=== PATIENT | female | born 1965 | race Caucasian/White ===

== ENCOUNTER → 2020-06-01 13:58 | Outpatient (BNVA) | payer MEDICAID, SELFPAY | PROVIDERS: PCP Family Medicine; Referring Provider Family Medicine; Visit Provider Nurse Practitioner | DX: Z01.818 Encounter for other preprocedural examination (principal); K59.04 Chronic idiopathic constipation | CPT/HCPCS: 99214 ==

== ENCOUNTER 2020-08-21 09:30 | Day surgery (SDC) | payer MEDICAID, SELFPAY ==
[2020-08-13 18:42] VITALS: BMI 21.9
--- NOTE | 2020-08-20 09:11 | P.CONAN_ITS ---
Documented by User: Joy Ospina 08/20/20 14:15 HPI - Anesthesia Eval Consult details Narrative: 54yo F for Colonoscopy asa/plavix (stent) Case reviewed with Dr Tony WRIGHT Past Medical History Medical History Anxiety Asthma CAD (coronary artery disease) Depression Diabetes History of heart attack HTN (hypertension) Hypercholesteremia Family History Family History Father Diabetes Hypercholesteremia HTN (hypertension) Mother HTN (hypertension) Diabetes Hypercholesteremia Brother HTN (hypertension) Diabetes Surgical History Surgical History Hx of colonoscopy (04/11/14) Stented coronary artery Social History Social History Alcohol intake: current Alcohol intake frequency: does not drink Smoking Status: Former smoker Tobacco Type: Cigarette Cigarettes Per Day: 2 Smoking Quit Date: 10 years ago Use of substances other than those prescribed or required for medical reasons: No Advance Directives: No Advance Directives Information Provided: No Advance Directives on File: No Meds Allergies Allergy/AdvReac Type Severity Reaction Status Date / Time shellfish derived Allergy Severe Swelling Verified 08/21/20 10:01 [SHELLFISH DERIVED] Penicillins Allergy Mild UNKNOWN - Verified 08/21/20 10:01 RXN CHILD naproxen [NAPROXEN] Allergy Unknown CAN'T TAKE Verified 08/21/20 10:01 PER HER WATCH DIAL MAKER seasonal allergies Allergy Mild Itchy Eyes Uncoded 08/21/20 10:01 Home Medications Medication Instructions Recorded Confirmed Type albuterol 90 mcg INHALATION Q4-6H PRN 08/13/20 08/13/20 History aspirin 81 mg PO DAILY 08/13/20 08/13/20 History atorvastatin 80 mg PO QPM 08/13/20 08/13/20 History clopidogrel 75 mg PO DAILY 08/13/20 08/13/20 History fluticasone propion-salmeterol 1 inh INHALATION BID 08/13/20 08/13/20 History [Advair Diskus] insulin glargine [Lantus U-100 32 unit SUBCUT QPM 08/13/20 08/13/20 History Insulin] insulin lispro [Humalog U-100 10 unit SUBCUT TID 08/13/20 08/13/20 History Insulin] isosorbide mononitrate 30 mg PO DAILY 08/13/20 08/13/20 History lisinopril 20 mg PO DAILY 08/13/20 08/13/20 History metoprolol succinate 25 mg PO DAILY 08/13/20 08/13/20 History Exam Exam Date and Time: August 20, 2020 0911 Height,Weight and Vital Signs: Height 5 ft 2 in Weight 54.431 kg Pertinent Lab Results Pertinent Lab Results: Laboratory Tests 03/13/20 03/13/20 21:55 21:55 WBC 8.0 Hgb 12.7 Hct 38.7 Plt Count 284 Sodium 137 Potassium 3.9 Chloride 103 BUN 13 Creatinine 1.18 Assessment and Plan Assessment Anesthesia Assessment: Chart Reviewed Documented by User: Carole Acosta 08/21/20 11:21 [facility] Past Medical History Medical History Anxiety Asthma CAD (coronary artery disease) Depression Diabetes History of heart attack HTN (hypertension) Hypercholesteremia Family History Family History Father Diabetes Hypercholesteremia HTN (hypertension) Mother HTN (hypertension) Diabetes Hypercholesteremia Brother HTN (hypertension) Diabetes Surgical History Surgical History Hx of colonoscopy (04/11/14) Stented coronary artery Social History Social History Alcohol intake: current Alcohol intake frequency: does not drink Smoking Status: Former smoker Tobacco Type: Cigarette Cigarettes Per Day: 2 Smoking Quit Date: 10 years ago Use of substances other than those prescribed or required for medical reasons: No Advance Directives: No Advance Directives Information Provided: No Advance Directives on File: No Meds Allergies Allergy/AdvReac Type Severity Reaction Status Date / Time shellfish derived Allergy Severe Swelling Verified 08/21/20 10:01 [SHELLFISH DERIVED] Penicillins Allergy Mild UNKNOWN - Verified 08/21/20 10:01 RXN CHILD naproxen [NAPROXEN] Allergy Unknown CAN'T TAKE Verified 08/21/20 10:01 PER HER WATCH DIAL MAKER seasonal allergies Allergy Mild Itchy Eyes Uncoded 08/21/20 10:01 Home Medications Medication Instructions Recorded Confirmed Type albuterol 90 mcg INHALATION Q4-6H PRN 08/13/20 08/13/20 History aspirin 81 mg PO DAILY 08/13/20 08/13/20 History atorvastatin 80 mg PO QPM 08/13/20 08/13/20 History clopidogrel 75 mg PO DAILY 08/13/20 08/13/20 History fluticasone propion-salmeterol 1 inh INHALATION BID 08/13/20 08/13/20 History [Advair Diskus] insulin glargine [Lantus U-100 32 unit SUBCUT QPM 08/13/20 08/13/20 History Insulin] insulin lispro [Humalog U-100 10 unit SUBCUT TID 08/13/20 08/13/20 History Insulin] isosorbide mononitrate 30 mg PO DAILY 08/13/20 08/13/20 History lisinopril 20 mg PO DAILY 08/13/20 08/13/20 History metoprolol succinate 25 mg PO DAILY 08/13/20 08/13/20 History Exam Airway Mallampati Class: II TM Dist: >3cm Neck ROM: Full Assessment and Plan Assessment Anesthesia Assessment: Anesthesia Plan Discussed and Chart Reviewed Final Anesthetic Review NPO: Yes ASA Class: III Final Preanesthetic Review: No Changes in Pt Med Stat, Meds/Allgs Chart Reviewed, Consent Obtained/Reviewed and Anes Risks/Benef Reviewed Patient Risk: Intermediate Procedure Risk: Low Assessment/Block/Sedation in SS: Assess/Block/Sedation-SS Anesthetic Plan Anesthetic Plan: MAC: Disposition: Standard PACU
--- NOTE | 2020-08-21 08:40 | P.HPSUR_ITS ---
Pre-Procedural Eval Section B Chief Complaint: screening Details of Present Illness: colon cancer screening Relevant Family History (Specify if Yes): No Relevant Social History: Tobacco Use (former smoker less than 1 year) Present Medications: see Short Stay Collaborative assessment Medical History: Significant History (Diabetes, CAD,asthma Plavix therapy) History of Previous Operations: Relevant previous surgery/procedure and date(s) (2013--colonoscopy-marginal prep.hx resection Ovarian cyst.) Allergies: Allergies Allergy/AdvReac Type Severity Reaction Status Date / Time Penicillins Allergy Mild UNKNOWN - Unverified 05/03/20 17:19 RXN CHILD naproxen [NAPROXEN] Allergy Unknown CAN'T TAKE Unverified 05/03/20 17:19 PER HER EVALUATOR TRANSFER STUDENTS shellfish derived Allergy Unknown UNKNOWN Unverified 05/03/20 17:19 [SHELLFISH DERIVED] seasonal allergies Allergy Unknown Swelling Uncoded 08/13/20 18:42 Plan I have reviewed the history and physical and performed a pertinent physical examination on my patient. No changes have occurred unless specified.yes
[2020-08-21 10:03] VITALS: BP 154/86; PULSE 85; RESP 18; TEMP 36.2; O2SAT 95
[2020-08-21 10:36] LABS: Glucose, Whole Blood 92 mg/dL (60-115)
[2020-08-21] MEDS: Lactated Ringers 1,000 ML 100 ML IVCONT (10:40)
--- NOTE | 2020-08-21 10:55 | P.HPSUR_ITS ---
Pre-Procedural Eval Section B Chief Complaint: screening Details of Present Illness: colon cancer screening Relevant Family History (Specify if Yes): No Relevant Social History: Tobacco Use (stopped(?) 6months?) Present Medications: see Short Stay Collaborative assessment Medical History: Significant History (CAD with stents, 2013;Asthma, Diabetes on insulin for 3 years.) History of Previous Operations: No relevant previous surgery (coloo--poor prep) Allergies: Allergies Allergy/AdvReac Type Severity Reaction Status Date / Time shellfish derived Allergy Severe Swelling Verified 08/21/20 10:01 [SHELLFISH DERIVED] Penicillins Allergy Mild UNKNOWN - Verified 08/21/20 10:01 RXN CHILD naproxen [NAPROXEN] Allergy Unknown CAN'T TAKE Verified 08/21/20 10:01 PER HER 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 No changes have occurred unless specified.yes
--- NOTE | 2020-08-21 11:46 | PM.PROC ---
Brief Operative Note Date of procedure: 08/21/20 Pre-op diagnosis: colon cancer screening Post-op diagnosis: other (Polyp, Internal hemorrhoids) Procedure: Colonoscopy with exc polypectomy Anesthesia: XOCHITL Bo[place]) Surgeon: Leilani Olivarez Estimated blood loss (mL): 5 Pathology: other (55 cm Polyp) Condition: stable Disposition: PACU
[2020-08-21 11:50] VITALS: BP 138/96; PULSE 98; RESP 16; TEMP 36.8; O2SAT 97
[2020-08-21 12:04] VITALS: BP 171/99; PULSE 87; RESP 18; O2SAT 99
--- NOTE | 2020-08-21 13:51 | OP_ITS ---
SURGEON: Leilani Olivarez MD PREOPERATIVE DIAGNOSIS: Colon cancer screening. POSTOPERATIVE DIAGNOSIS see below: PROCEDURE PERFORMED: Colonoscopy with excisional polypectomy with the use of the cold biopsy forceps. ESTIMATED BLOOD LOSS: No significant blood loss. COMPLICATIONS: No complications. ANESTHESIA: Monitored. ANESTHESIOLOGIST: Dr. Acosta ASSISTANTS: No recreational assistant. SPECIMENS: Specimen removed; 55 cm diminutive polyp. POSTOPERATIVE DIAGNOSES: Diminutive polyp, internal hemorrhoids, marginal prep. CLIP ON SUNGLASSES ASSEMBLER: Dr. Olivarez. CONDITION: Postprocedure, stable. FINDINGS: Digital rectal exam revealed decreased sphincter tone. Video colonoscope was introduced without difficulty. It was navigated into the rectum. The level of the rectosigmoid was difficult to navigate. The patient had decreased sphincter tone and it was not retaining air well, angulation took well with air insufflation to move through what appeared to be a significant prolapse of the rectosigmoid and the lower sigmoid. Initially, we were able to get through up through to the region of the descending, transverse colon, and right colon. In the cecum, appendiceal orifice was seen. Ileocecal valve was well seen. No mucosal abnormalities were appreciated. Prep was marginal at the levels of the transverse and right colon, requiring significant flushing. Scope was withdrawn slowly. Good rotational views. Polyp was visualized at 55 cm, which was diminutive, texturing was difficult due to the mucoid residue, it was removed excisionally with cold biopsy forceps. Anorectal verge was clear. There were 2+ internal hemorrhoids noted in the anal canal. PLAN AND CURRENT RECOMMENDATIONS: Repeat asymptomatic screening in this patient will be 5 years. Would recommend a 2-day prep due to significant residual or lack of clearing of the right side. Again, well timed split prep might achieve a better result. GRAFT OR IMPLANTS: No grafts or implants. Leilani Olivarez MD MEN/MODL / [id number] MTDD
== END 2020-08-21 12:59 ==
LOC: HO.SSS 09:31
PROVIDERS: PCP Family Medicine; Visit Provider Internal Medicine Gastroenterology
PROC: 0DJD8ZZ Inspection of Lower Intestinal Tract, Via Natural or Artificial Opening Endoscopic (ICD-10-PCS; CPT 45378; principal; 2020-08-21 09:20)
DX: Z12.11 Encounter for screening for malignant neoplasm of colon (principal); K63.5 Polyp of colon; K64.8 Other hemorrhoids; J45.909 Unspecified asthma, uncomplicated; E11.9 Type 2 diabetes mellitus without complications; I25.10 Atherosclerotic heart disease of native coronary artery without angina pectoris; Z98.61 Coronary angioplasty status; I10 Essential (primary) hypertension; F17.210 Nicotine dependence, cigarettes, uncomplicated; I25.2 Old myocardial infarction; Z79.51 Long term (current) use of inhaled steroids; Z79.4 Long term (current) use of insulin; Z79.82 Long term (current) use of aspirin; Z79.899 Other long term (current) drug therapy; Z88.0 Allergy status to penicillin
CPT/HCPCS: 45380; 82947; 88305; J2405; J3010

== ENCOUNTER → 2020-09-05 10:31 | Outpatient (BNVA) | payer MEDICAID, SELFPAY | PROVIDERS: PCP Family Medicine; Visit Provider Nurse Practitioner ==

== ENCOUNTER → 2021-03-04 14:29 | Outpatient (BNVA) | payer MEDICAID, SELFPAY | PROVIDERS: PCP Family Medicine; Visit Provider Nurse Practitioner ==

== ENCOUNTER 2021-06-29 23:15 | Emergency (ER) | payer MEDICAID, SELFPAY ==
--- NOTE | ~2021-06-29 | XR_ITS ---
EXAMINATION: XR CHEST CLINICAL INFORMATION: Left flank pain COMPARISON: 03/14/2020 TECHNIQUE: 2 views of the chest were obtained. FINDINGS: The lungs are well expanded. There is no focal consolidation, edema, or effusion. No pneumothorax. The cardiomediastinal silhouette is within normal limits. No acute osseous abnormality. XR/XR chest 2V IMPRESSION: No acute pulmonary finding.
[2021-06-29 23:58] VITALS: BP 164/83; PULSE 88; RESP 18; TEMP 36.7; O2SAT 100; BMI 24.7
--- NOTE | 2021-06-30 00:47 | PC.NURSE ---
checked pt sugar with POC 127 at this time by this PCT
[2021-06-30 00:51] LABS: Glucose, Whole Blood 127 mg/dL (60-115)
[2021-06-30 01:00] VITALS: BP 157/89; PULSE 84; RESP 16; TEMP 37.2; O2SAT 100
[2021-06-30 01:38] LABS: MANUAL DIFF FLAG NO
[2021-06-30 01:39] LABS: Basophils Percent Auto 0.1 % (0-2); Eosinophils Absolute Auto 0.4 X10*3/uL (0.0-0.4); Eosinophils Percent Auto 5.8 % (0-4); Hematocrit 34.3 % (37.0-47.0); Hemoglobin 11.4 g/dl (12.0-16.0); Imm Gran Abs Auto 0.01 X10*3/uL (0.00-0.03); Imm Gran Pct Auto 0.1 % (0.0-0.4); Lymphocytes Absolute Auto 2.3 X10*3/uL (1.2-4.9); Mean Corpuscular HGB Conc 33.2 g/dl (31.0-35.0); Mean Corpuscular Hemoglobin 30.3 pg (27.0-33.0); Mean Corpuscular Volume 91.2 fL (80.0-98.0); Monocytes Absolute Auto 0.4 X10*3/uL (0.1-1.2); Monocytes Percent Auto 6.1 % (2-11); Neutrophils Percent Auto 55.9 % (45-73); Platelet Count 308 X10*3/uL (160-400); Red Blood Count 3.76 X10*6/uL (4.20-5.50); Red Cell Distribution Width 11.6 % (11.0-16.0); White Blood Count 7.2 X10*3/uL (4.8-10.8)
--- NOTE | 2021-06-30 01:59 | ED.ABDPAIN ---
HPI - Abdominal Pain General Chief Complaint: Abdominal Pain Stated Complaint: Abd pain Time Seen by Provider: 06/30/21 00:56 Source: patient and surgical elastic knitter hand frame Mode of arrival: ambulatory History of Present Illness HPI narrative: 55-year-old female with history of diabetes, CAD, and presents with left upper quadrant/epigastric discomfort since the 17 of June that has been associated with chills and some mild nausea but denies any vomiting, diarrhea and has continued to have daily bowel movements and denies any urinary pain/burning/frequency. Otherwise, patient denies any shortness of breath or chest pain. Related Data Home Medications Medication Instructions Recorded Confirmed albuterol 90 mcg/actuation aerosol 90 mcg INHALATION Q4-6H PRN 08/13/20 08/13/20 inhaler aspirin 81 mg tablet 81 mg PO DAILY 08/13/20 08/13/20 atorvastatin 80 mg tablet 80 mg PO QPM 08/13/20 08/13/20 clopidogrel 75 mg tablet 75 mg PO DAILY 08/13/20 08/13/20 fluticasone 100 mcg-salmeterol 50 1 inh INHALATION BID 08/13/20 08/13/20 mcg/dose blistr powdr for inhalation (Advair Diskus) insulin glargine 100 unit/mL 32 unit SUBCUT QPM 08/13/20 08/13/20 subcutaneous cartridge insulin lispro 100 unit/mL 10 unit SUBCUT TID 08/13/20 08/13/20 subcutaneous cartridge (Humalog U-100 Insulin) isosorbide mononitrate 30 mg 30 mg PO DAILY 08/13/20 08/13/20 tablet,extended release 24 hr lisinopril 20 mg tablet 20 mg PO DAILY 08/13/20 08/13/20 metoprolol succinate 25 mg capsule 25 mg PO DAILY 08/13/20 08/13/20 sprinkle, ext. release 24 hr Previous Rx's Medication Instructions Recorded plecanatide 3 mg tablet (Trulance) 3 mg PO DAILY 30 Days #30 tab 03/04/21 sucralfate 100 mg/mL oral 10 ml PO BID #420 ml 06/30/21 suspension (Carafate) sucralfate 100 mg/mL oral 10 ml PO BID #420 ml 06/30/21 suspension (Carafate) Allergies Allergy/AdvReac Type Severity Reaction Status Date / Time shellfish derived Allergy Severe Swelling Verified 03/04/21 14:30 [SHELLFISH DERIVED] Penicillins Allergy Mild UNKNOWN - Verified 03/04/21 14:30 RXN CHILD naproxen [NAPROXEN] Allergy Unknown CAN'T TAKE Verified 03/04/21 14:30 PER HER EXCHANGE ADMINISTRATOR seasonal allergies Allergy Mild Itchy Eyes Uncoded 08/21/20 10:01 Review of Systems Review of Systems Pertinent positives and negatives as stated in HPI 10 point review of systems is otherwise negative. Physical Exam Vital Signs: Vital Signs: Last Vital Signs Temp 98.9 F 06/30/21 01:00 Pulse 83 06/30/21 03:49 Resp 16 06/30/21 03:49 BP 156/93 H 06/30/21 03:49 Pulse Ox 100 06/30/21 03:49 Body Mass Index 24.7 VITAL SIGNS: Reviewed. GENERAL: Well developed, well nourished, in no acute distress. HEAD: Normocephalic/atraumatic EYES: PERRLA, EOMI OROPHARYNX: no oral lesions noted, posterior pharynx clear, moist mucosa NECK: Supple, no adenopathy LUNGS: Normal breath sounds. No adventitious sounds or accessory muscle use. SpO2<100> CARDIOVASCULAR: Regular rate and rhythm without noted murmurs, no JVD or lower extremity edema. ABDOMEN: Soft, tenderness across upper abdomen, non-distended with bowel sounds, no CVA tenderness SKIN: Inspection of the skin reveals no rashes NEUROLOGIC: Alert and oriented x 4. Strength and sensation to light touch were grossly intact x 4. Course Course Course Narrative: 55-year-old female with history and clinical presentation suggestive of possible gallbladder pathology, pancreatitis, gastritis. Review of all investigations otherwise negative for acute findings and due to patient history pursued assessment of troponin levels although there were no noted EKG changes when compared to prior. Although serial high sensitivity troponins were detectable they were flat in nature and patient not presenting with characteristic chest pain. In addition, patient provided additional information that sometimes when she wakes up in the middle the night she drinks a small glass of milk that usually helps her. She also states that she got relief after receiving the GI cocktail. MDM - Abdominal Pain Lab Data Result diagrams: 06/30/21 01:34 06/30/21 01:34 Labs: Lab Results 06/30/21 06/30/21 06/30/21 Range/Units 00:45 01:29 01:34 WBC 7.2 (4.8-10.8) X10*3/uL RBC 3.76 L (4.20-5.50) X10*6/uL Hgb 11.4 L (12.0-16.0) g/dl Hct 34.3 L (37.0-47.0) % MCV 91.2 (80.0-98.0) fL MCH 30.3 (27.0-33.0) pg MCHC 33.2 (31.0-35.0) g/dl RDW 11.6 (11.0-16.0) % Plt Count 308 (160-400) X10*3/uL MPV 10.0 (9.4-12.3) fL Immature Gran % (Auto) 0.1 (0.0-0.4) % Neut % (Auto) 55.9 (45-73) % Lymph % (Auto) 32.0 (20-40) % [place] % (Auto) 6.1 (2-11) % Eos % (Auto) 5.8 H (0-4) % Baso % (Auto) 0.1 (0-2) % Lymph # (Auto) 2.3 (1.2-4.9) X10*3/uL [place] # (Auto) 0.4 (0.1-1.2) X10*3/uL Eos # (Auto) 0.4 (0.0-0.4) X10*3/uL Baso # (Auto) 0.0 (0.0-0.2) X10*3/uL Abs Immat Gran (auto) 0.01 (0.00-0.03) X10*3/uL Absolute Neuts (auto) 4.0 (2.0-8.3) x10*3/uL Absolute Nucleated RBC 0.000 (0.0-0.012) X10*3/uL Nucleated RBC % (auto) 0.0 (0.0-0.2) /100WBC Sodium (135-145) mmol/L Potassium (3.3-5.1) mmol/L Chloride (96-108) mmol/L Carbon Dioxide (22-29) mmol/L Anion Gap (12-20) BUN (9-16) mg/dL Creatinine (0.5-1.4) mg/dL Estim Creat Clear Calc Estimated GFR POC Glucose 127 H (60-115) mg/dL Random Glucose (60-115) mg/dL Calcium (8.4-10.2) mg/dL Total Bilirubin (0.0-1.0) mg/dL AST (5-31) U/L ALT (0-31) U/L Alkaline Phosphatase (39-117) U/L Troponin I High Sens (<3.5-17.0) ng/L Total Protein (6.5-8.0) g/dL Albumin (3.5-5.0) g/dL Lipase (8-78) U/L Urine Color YELLOW Urine Appearance CLEAR Urine pH 6.0 (5.0-8.0) Ur Specific [place] 1.010 (1.005-1.025) Urine Protein NEG (NEG-TRACE) MG/DL Urine Glucose (UA) NEG (NEG) MG/DL Urine Ketones NEG (NEG) MG/DL Urine Blood NEG (NEG) Urine Nitrite NEG (NEG) Ur Leukocyte Esterase NEG (NEG) 06/30/21 06/30/21 06/30/21 Range/Units 01:34 01:34 03:53 WBC (4.8-10.8) X10*3/uL RBC (4.20-5.50) X10*6/uL Hgb (12.0-16.0) g/dl Hct (37.0-47.0) % MCV (80.0-98.0) fL MCH (27.0-33.0) pg MCHC (31.0-35.0) g/dl RDW (11.0-16.0) % Plt Count (160-400) X10*3/uL MPV (9.4-12.3) fL Immature Gran % (Auto) (0.0-0.4) % Neut % (Auto) (45-73) % Lymph % (Auto) (20-40) % [place] % (Auto) (2-11) % Eos % (Auto) (0-4) % Baso % (Auto) (0-2) % Lymph # (Auto) (1.2-4.9) X10*3/uL [place] # (Auto) (0.1-1.2) X10*3/uL Eos # (Auto) (0.0-0.4) X10*3/uL Baso # (Auto) (0.0-0.2) X10*3/uL Abs Immat Gran (auto) (0.00-0.03) X10*3/uL Absolute Neuts (auto) (2.0-8.3) x10*3/uL Absolute Nucleated RBC (0.0-0.012) X10*3/uL Nucleated RBC % (auto) (0.0-0.2) /100WBC Sodium 138 (135-145) mmol/L Potassium 4.6 (3.3-5.1) mmol/L Chloride 105 (96-108) mmol/L Carbon Dioxide 23 (22-29) mmol/L Anion Gap 15 (12-20) BUN 23 H (9-16) mg/dL Creatinine 0.85 (0.5-1.4) mg/dL Estim Creat Clear Calc 62.8 Estimated GFR > 60 POC Glucose (60-115) mg/dL Random Glucose 122 H (60-115) mg/dL Calcium 10.4 H (8.4-10.2) mg/dL Total Bilirubin 0.4 (0.0-1.0) mg/dL AST 14 (5-31) U/L ALT 18 (0-31) U/L Alkaline Phosphatase 90 (39-117) U/L Troponin I High Sens 19.4 H* 18.4 H* (<3.5-17.0) ng/L Total Protein 7.8 (6.5-8.0) g/dL Albumin 4.6 (3.5-5.0) g/dL Lipase 30 (8-78) U/L Urine Color Urine Appearance Urine pH (5.0-8.0) Ur Specific [place] (1.005-1.025) Urine Protein (NEG-TRACE) MG/DL Urine Glucose (UA) (NEG) MG/DL Urine Ketones (NEG) MG/DL Urine Blood (NEG) Urine Nitrite (NEG) Ur Leukocyte Esterase (NEG) ECG Data Attestation: I personally reviewed and interpreted this ECG as follows: Prior ECG tracings: available for review (10/06/2019 no acute changes on comparison) Interpretation: Sinus rhythm with PVCs, HR-84, no STEMI, [place]/QRS/QTC are within normal limits. Discharge Plan Discharge Clinical Impression: Gastritis Patient Disposition: Home, Self-Care Instructions: Sucralfate (By mouth), Gastritis (ED), Diet for Stomach Ulcers and Gastritis (ED) Additional Instructions: 1. Reanude todos los medicamentos caseros seg?n lo prescrito. 2. Trate de limitar la cantidad de comidas y bebidas picantes, con cafe?na y carbonatadas. 3. Elyssa un seguimiento con campbell proveedor de atenci?n primaria el lunes por la ma?ryley para larissa reevaluaci?n y un tratamiento ambulatorio adicional. Regrese a la cristhian de emergencias si experimenta un empeoramiento de los s?ntomas. Prescriptions: New sucralfate [Carafate] 100 mg/mL suspension 10 ml PO BID Qty: 420 RF: 0 sucralfate [Carafate] 100 mg/mL suspension 10 ml PO BID Qty: 420 RF: 0 No Action atorvastatin 80 mg Tablet 80 mg PO QPM RF: 0 lisinopril 20 mg Tablet 20 mg PO DAILY RF: 0 isosorbide mononitrate 30 mg Tablet Extended Release 24 Hr 30 mg PO DAILY RF: 0 clopidogrel 75 mg Tablet 75 mg PO DAILY RF: 0 aspirin 81 mg Tablet 81 mg PO DAILY RF: 0 albuterol 90 mcg/actuation Aerosol 90 mcg INHALATION Q4-6H PRN (Reason: Shortness Of Breath Or Wheezing) RF: 0 fluticasone propion-salmeterol [Advair Diskus] 100-50 mcg/dose Blister With Device 1 inh INHALATION BID RF: 0 Humalog U-100 Insulin 100 unit/mL Cartridge 10 unit SUBCUT TID RF: 0 insulin glargine 100 unit/mL Cartridge 32 unit SUBCUT QPM RF: 0 metoprolol succinate 25 mg Capsule,Sprinkle,Er 24hr 25 mg PO DAILY RF: 0 Trulance 3 mg tablet 3 mg PO DAILY 30 Days Qty: 30 RF: 6 Referrals: Brittnee Hanna MD [Primary Care Provider] - 2 days Print Language: Citizen Of [place] [facility] Past Medical History Source: nursing notes reviewed Medical History Anxiety Asthma CAD (coronary artery disease) Depression Diabetes History of heart attack HTN (hypertension) Hypercholesteremia Surgical History Hx of colonoscopy (04/11/14) Stented coronary artery Family History Family History Father Diabetes Hypercholesteremia HTN (hypertension) Mother HTN (hypertension) Diabetes Hypercholesteremia Brother HTN (hypertension) Diabetes Social History Social History Household Members: None Alcohol intake: current Alcohol intake frequency: does not drink Advance Directives: No Patient : No
[2021-06-30 02:00] LABS: Alanine Aminotransferase 18 U/L (0-31); Albumin Level 4.6 g/dL (3.5-5.0); Alkaline Phosphatase 90 U/L (39-117); Anion Gap 15 (12-20); Aspartate Amino Transferase 14 U/L (5-31); Bilirubin Total 0.4 mg/dL (0.0-1.0); Blood Urea Nitrogen 23 mg/dL (9-16); Calcium 10.4 mg/dL (8.4-10.2); Carbon Dioxide 23 mmol/L (22-29); Chloride 105 mmol/L (96-108); Creatinine Clr Calc Pharmacy 62.8; Estimated Glomerular Filt Rate > 60; Glucose Random 122 mg/dL (60-115); Lipase 30 U/L (8-78); Potassium 4.6 mmol/L (3.3-5.1); Sodium 138 mmol/L (135-145); Total Protein 7.8 g/dL (6.5-8.0)
--- NOTE | 2021-06-30 02:01 | ECG_ITS ---
Test Reason : ABDOMINAL PAIN Blood Pressure : / mmHG Vent. Rate : 084 BPM Atrial Rate : 084 BPM P-R Int : 158 ms QRS Dur : 076 ms QT Int : 372 ms P-R-T Axes : 062 -13 031 degrees QTc Int : 439 ms Sinus rhythm with occasional Premature ventricular complexes Nonspecific ST abnormality Septal leads Abnormal ECG When compared with ECG of 06-OCT-2019 21:13, Premature ventricular complexes are now Present QRS duration has decreased ST more elevated in Septal leads Referred By: Sandra Devi Electronically Signed By:LISBETH LONG MD
[2021-06-30 02:20] LABS: Appearance Urine CLEAR; Color Urine YELLOW; Glucose Urine UA NEG (NEG); Leukocyte Esterase Urine NEG (NEG); Nitrite Urine NEG (NEG); Urine Blood NEG (NEG); Urine Ketones NEG (NEG); Urine Protein NEG (NEG-TRACE)
[2021-06-30] MEDS: Acetaminophen 325 MG TABLET 975 MG PO (03:01)
[2021-06-30] MEDS: Lidocaine HCl Viscous 2 % 15 ML SOLUTION 10 ML MUCOUS MEM (03:02)
[2021-06-30] MEDS: Magnesium Hydrox/Alum Hydrox 30 ML ORAL.SUSP PO (03:02)
[2021-06-30 03:18] LABS: Troponin-I High Sensitivity 19.4 ng/L (<3.5-17.0)
[2021-06-30 03:49] VITALS: BP 156/93; PULSE 83; RESP 16; O2SAT 100
[2021-06-30 04:21] LABS: Troponin-I High Sensitivity 18.4 ng/L (<3.5-17.0)
== END 2021-06-30 05:11 | disposition home or self-care (01) ==
PROVIDERS: Emergency Provider Student in an Organized Health Care Education/Training Program; PCP Family Medicine
DX: K29.70 Gastritis, unspecified, without bleeding (principal); R10.12 Left upper quadrant pain; I25.10 Atherosclerotic heart disease of native coronary artery without angina pectoris; Z79.899 Other long term (current) drug therapy
CPT/HCPCS: 36415; 71046; 80053; 81003; 82947; 83690; 84484; 85025; 93005; 99283; 99284

== ENCOUNTER 2022-01-07 11:47 | Inpatient (IN) | payer MEDICAID, SELFPAY ==
--- NOTE | ~2022-01-07 | XR_ITS ---
EXAMINATION: XR CHEST CLINICAL INFORMATION: Chest pain COMPARISON: Previous chest x-ray June 2021 TECHNIQUE: 2 views of the chest were obtained. FINDINGS: The cardiac silhouette does not appear enlarged. There is pulmonary venous redistribution. There are increased interstitial markings suggestive of interstitial pulmonary edema. There is no pleural effusion or pneumothorax. Bony structures are unremarkable. XR/XR chest 2V IMPRESSION: Pulmonary venous redistribution and increased interstitial markings suggestive of interstitial pulmonary edema.
--- NOTE | 2022-01-07 11:56 | ECG_ITS ---
Test Reason : CHEST PAIN Blood Pressure : / mmHG Vent. Rate : 099 BPM Atrial Rate : 099 BPM P-R Int : 128 ms QRS Dur : 082 ms QT Int : 354 ms P-R-T Axes : 053 005 014 degrees QTc Int : 454 ms Normal sinus rhythm Nonspecific T wave abnormality Abnormal ECG When compared with ECG of 30-JUN-2021 02:37, Premature ventricular complexes are no longer Present Nonspecific T wave abnormality now evident in Anterolateral leads Referred By: Generic ED Physician Electronically Signed By:Ermias Taylor
[2022-01-07 13:13] VITALS: BP 155/95; PULSE 102; RESP 18; TEMP 36.9; O2SAT 99; BMI 25.4
[2022-01-07 13:27] LABS: MANUAL DIFF FLAG NO
[2022-01-07 13:33] LABS: Basophils Percent Auto 0.5 % (0-2); Eosinophils Absolute Auto 0.1 X10*3/uL (0.0-0.4); Eosinophils Percent Auto 2.4 % (0-4); Hematocrit 22.8 % (37.0-47.0); Imm Gran Abs Auto 0.03 X10*3/uL (0.00-0.03); Imm Gran Pct Auto 0.7 % (0.0-0.4); Lymphocytes Absolute Auto 1.1 X10*3/uL (1.2-4.9); Lymphocytes Percent Auto 25.7 % (20-40); Mean Corpuscular HGB Conc 30.7 g/dl (31.0-35.0); Mean Corpuscular Hemoglobin 29.8 pg (27.0-33.0); Mean Platelet Volume 11.2 fL (9.4-12.3); Monocytes Absolute Auto 0.4 X10*3/uL (0.1-1.2); Monocytes Percent Auto 10.6 % (2-11); NRBC Pct Auto 0.5 /100WBC (0.0-0.2); Neutrophils Absolute Auto 2.5 x10*3/uL (2.0-8.3); Neutrophils Percent Auto 60.1 % (45-73); Platelet Count 284 X10*3/uL (160-400); Red Blood Count 2.35 X10*6/uL (4.20-5.50); Red Cell Distribution Width 14.3 % (11.0-16.0); White Blood Count 4.2 X10*3/uL (4.8-10.8)
[2022-01-07 13:43] LABS: COVID-19 Test Negative (Negative)
[2022-01-07 13:52] LABS: B Type Natriuretic Peptide 128 pg/mL (<100)
[2022-01-07 15:57] LABS: Anion Gap 13 (12-20); Blood Urea Nitrogen 10 mg/dL (9-16); Calcium 9.2 mg/dL (8.4-10.2); Carbon Dioxide 24 mmol/L (22-29); Chloride 112 mmol/L (96-108); Creatinine Clr Calc Pharmacy 69.5; Estimated Glomerular Filt Rate > 60; Glucose Random 124 mg/dL (60-115); Potassium 3.7 mmol/L (3.3-5.1); Sodium 145 mmol/L (135-145)
[2022-01-07 16:03] LABS: Troponin-I High Sensitivity 30.5 ng/L (<3.5-17.0)
[2022-01-07 20:32] VITALS: BP 154/80; PULSE 99; RESP 20; TEMP 36.9; O2SAT 100
[2022-01-07 20:36] LABS: Glucose, Whole Blood 39 mg/dL (60-115)
[2022-01-07 21:05] LABS: OBS Int Ctl Valid YES; OBS1 POSITIVE (NEGATIVE)
[2022-01-07 21:13] LABS: Prothrombin Time 11.8 SEC (9.9-13.0)
--- NOTE | 2022-01-07 21:18 | ED.CHESTPAIN ---
HPI - Chest Pain General Chief Complaint: Chest Pain Stated Complaint: Chest pain Time Seen by Provider: 01/07/22 20:28 Source: patient Mode of arrival: ambulatory Limitations: no limitations History of Present Illness HPI narrative: Patient comes to the emergency room complaining of 3 days of generalized weakness, dizziness, shortness of breath with exertion. Patient denies URI or UTI symptoms. Initially, patient complained of chest pain, however she clarifies that it is not chest pain, it has diffuse body aches. Patient also has noted that over the last couple of days, she has had lower extremity edema which has never happened before. Related Data Home Medications Medication Instructions Recorded Confirmed aspirin 81 mg tablet 81 mg PO DAILY 08/13/20 08/13/20 atorvastatin 80 mg tablet 80 mg PO QPM 08/13/20 08/13/20 clopidogrel 75 mg tablet 75 mg PO DAILY 08/13/20 08/13/20 insulin lispro 100 unit/mL 10 unit SUBCUT TID 08/13/20 08/13/20 subcutaneous cartridge (Humalog U-100 Insulin) isosorbide mononitrate 30 mg 30 mg PO DAILY 08/13/20 08/13/20 tablet,extended release 24 hr lisinopril 20 mg tablet 20 mg PO DAILY 08/13/20 08/13/20 albuterol sulfate 90 mcg/actuation 2 puff INHALATION Q4-6H PRN 01/07/22 aerosol inhaler (ProAir HFA) fluticasone 250 mcg-salmeterol 50 1 puff INHALATION 01/07/22 mcg/dose blistr powdr for inhalation (Advair Diskus) insulin glargine 100 unit/mL (3 32 unit SUBCUT BEDTIME 01/07/22 mL) subcutaneous pen (Lantus Solostar U-100 Insulin) loratadine 10 mg tablet 1 tab PO QAM 01/07/22 metoprolol succinate 50 mg 1 tab PO QAM 01/07/22 tablet,extended release 24 hr olanzapine 2.5 mg tablet 1 tab PO BEDTIME 01/07/22 tiotropium bromide 18 mcg capsule 1 cap INHALATION DAILY 01/07/22 with inhalation device (Spiriva with HandiHaler) Previous Rx's Medication Instructions Recorded plecanatide 3 mg tablet (Trulance) 3 mg PO DAILY 30 Days #30 tab 03/04/21 Allergies Allergy/AdvReac Type Severity Reaction Status Date / Time shellfish derived Allergy Severe Swelling Verified 01/07/22 13:13 [SHELLFISH DERIVED] Penicillins Allergy Mild UNKNOWN - Verified 01/07/22 13:13 RXN CHILD naproxen [NAPROXEN] Allergy Unknown CAN'T TAKE Verified 01/07/22 13:13 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 seasonal allergies Allergy Mild Itchy Eyes Uncoded 08/21/20 10:01 Review of Systems Review of Systems: Constitutional : No Weight loss, No Fever, No Chills, No Night Sweats, complaining fatigue and generalized malaise ENT/Mouth : No Hearing loss, No Ear Pain, No Nasal Congestion, No Sinus Pain, No Hoarseness, No sore throat, No Rhinorrhea, No Swallowing Difficulty Eyes: No Eye Pain, No Swelling, No Redness, No Foreign Body, No Discharge, No Vision Changes Cardiovascular : No Chest Pain, complaining of dyspnea on exertion, no orthopnea, complaining of lower extremity edema Respiratory : No Cough, No Sputum, No Wheezing, No Smoke Exposure, No Dyspnea Gastrointestinal : No Nausea, No Vomiting, No Diarrhea, No Constipation, abdominal pain, complaining of black stool Genitourinary : no irregular bleeding, No Dysuria, No Urinary Frequency, No Hematuria, No Urinary Incontinence, No Urgency, No Flank Pain, No Urinary Flow Changes, No Hesitancy Musculoskeletal : No joint pain, No Myalgias, No Joint Swelling Skin : No Skin Lesions, No rash Neuro : No Weakness, No Numbness, No Paresthesias, No Loss of Consciousness, No Dizziness, No Headache Psych : No Anxiety/Panic, No Depression, No SI/HI/AH/VH, No Social Issues, Heme/Lymph: No Bruising, No Bleeding,No Lymphadenopathy Endocrine : No Polyuria, No Polydipsia, No Temperature Intolerance PENDING SALE TO [facility] Past Medical History Medical History Anxiety Asthma CAD (coronary artery disease) Depression Diabetes History of heart attack HTN (hypertension) Hypercholesteremia Surgical History Hx of colonoscopy (04/11/14) Stented coronary artery Family History Family History Father Diabetes Hypercholesteremia HTN (hypertension) Mother HTN (hypertension) Diabetes Hypercholesteremia Brother HTN (hypertension) Diabetes Social History Social History Household Members: None Alcohol intake: current Alcohol intake frequency: does not drink Advance Directives: No Advance Directives Information Provided: No Physical Exam Vital Signs: Vital Signs: Last Vital Signs Temp 98.4 F 01/07/22 20:32 Pulse 99 01/07/22 20:32 Resp 20 01/07/22 20:32 BP 154/80 H 01/07/22 20:32 Pulse Ox 100 01/07/22 20:32 BMI result Body Mass Index 25.4 Const: Other: Appearance: Alert. Oriented X3. No acute distress. Eyes: Pupils equal, round and reactive to light. ENT: Pharynx normal. Neck: Normal inspection. Neck supple. No lymph nodes noted. No crepitus CVS: Normal heart rate and rhythm. Pulses normal. Normal S1 and S2 Respiratory: No respiratory distress. Breath sounds normal. No Wheezing. No rales Abdomen: Soft and nontender. No rigidity. No distention. Digital rectal exam shows maroon colored stool Skin: Skin warm and dry. Normal skin color. Normal skin turgor. Extremities: No lower extremity edema. No Lacerations. No Rash Neuro: Oriented X 3. No motor deficit. No sensory deficit. Moving all extremities. No slurred speech. CN 2 through 12 grossly intact Psych: calm, cooperative, anxious, teary Course Course Course Narrative: When patient arrived in her room, patient told her nurse that she thinks that her blood sugar is low, it was checked and it was 39. Patient received p.o. Jews and solids. Patient feeling better. After 30 minutes, patient is feeling better, blood glucose 102. States that she had a colonoscopy less than a year ago, she was told that her colonoscopy was normal. This is the 1st time that patient has a GI bleed I discussed with the patient that given her symptoms and the low hemoglobin level, she is a candidate for a blood transfusion. Patient has never had a blood transfusion in the past. I discussed with the patient the risks versus benefits of a blood transfusion. Patient is agreeable to receive blood. Consent was signed Troponin 1. 30.5, 2nd troponin pending. Patient's BNP is slightly elevated 128, chest x-ray shows pulmonary edema. It is unlikely this is new onset CHF, this is likely secondary to anemia. MDM - Chest Pain Lab Data Result diagrams: 01/07/22 13:22 01/07/22 15:38 Labs: Lab Results 01/07/22 01/07/22 01/07/22 Range/Units 13:22 13:22 13:22 WBC 4.2 L (4.8-10.8) X10*3/uL RBC 2.35 L D (4.20-5.50) X10*6/uL Hgb 7.0 L* D (12.0-16.0) g/dl Hct 22.8 L D (37.0-47.0) % MCV 97.0 (80.0-98.0) fL MCH 29.8 (27.0-33.0) pg MCHC 30.7 L (31.0-35.0) g/dl RDW 14.3 (11.0-16.0) % Plt Count 284 (160-400) X10*3/uL MPV 11.2 (9.4-12.3) fL Immature Gran % (Auto) 0.7 H (0.0-0.4) % Neut % (Auto) 60.1 (45-73) % Lymph % (Auto) 25.7 (20-40) % Esmeralda % (Auto) 10.6 (2-11) % Eos % (Auto) 2.4 (0-4) % Baso % (Auto) 0.5 (0-2) % Lymph # (Auto) 1.1 L (1.2-4.9) X10*3/uL Esmeralda # (Auto) 0.4 (0.1-1.2) X10*3/uL Eos # (Auto) 0.1 (0.0-0.4) X10*3/uL Baso # (Auto) 0.0 (0.0-0.2) X10*3/uL Abs Immat Gran (auto) 0.03 (0.00-0.03) X10*3/uL Absolute Neuts (auto) 2.5 (2.0-8.3) x10*3/uL Absolute Nucleated RBC 0.020 H (0.0-0.012) X10*3/uL Nucleated RBC % (auto) 0.5 H (0.0-0.2) /100WBC PT (9.9-13.0) SEC INR (0.9-1.1) Sodium (135-145) mmol/L Potassium (3.3-5.1) mmol/L Chloride (96-108) mmol/L Carbon Dioxide (22-29) mmol/L Anion Gap (12-20) BUN (9-16) mg/dL Creatinine (0.5-1.4) mg/dL Estim Creat Clear Calc Estimated GFR POC Glucose (60-115) mg/dL Random Glucose (60-115) mg/dL Calcium (8.4-10.2) mg/dL Troponin I High Sens (<3.5-17.0) ng/L B-Natriuretic Peptide 128 H (<100) pg/mL Stool Occult Blood (NEGATIVE) COVID-19 (KIKI) Negative (Negative) COVID-19 Clin Com See Note 01/07/22 01/07/22 01/07/22 Range/Units 15:38 15:38 20:32 WBC (4.8-10.8) X10*3/uL RBC (4.20-5.50) X10*6/uL Hgb (12.0-16.0) g/dl Hct (37.0-47.0) % MCV (80.0-98.0) fL MCH (27.0-33.0) pg MCHC (31.0-35.0) g/dl RDW (11.0-16.0) % Plt Count (160-400) X10*3/uL MPV (9.4-12.3) fL Immature Gran % (Auto) (0.0-0.4) % Neut % (Auto) (45-73) % Lymph % (Auto) (20-40) % Esmeralda % (Auto) (2-11) % Eos % (Auto) (0-4) % Baso % (Auto) (0-2) % Lymph # (Auto) (1.2-4.9) X10*3/uL Esmeralda # (Auto) (0.1-1.2) X10*3/uL Eos # (Auto) (0.0-0.4) X10*3/uL Baso # (Auto) (0.0-0.2) X10*3/uL Abs Immat Gran (auto) (0.00-0.03) X10*3/uL Absolute Neuts (auto) (2.0-8.3) x10*3/uL Absolute Nucleated RBC (0.0-0.012) X10*3/uL Nucleated RBC % (auto) (0.0-0.2) /100WBC PT (9.9-13.0) SEC INR (0.9-1.1) Sodium 145 (135-145) mmol/L Potassium 3.7 (3.3-5.1) mmol/L Chloride 112 H (96-108) mmol/L Carbon Dioxide 24 (22-29) mmol/L Anion Gap 13 (12-20) BUN 10 (9-16) mg/dL Creatinine 0.77 (0.5-1.4) mg/dL Estim Creat Clear Calc 69.5 Estimated GFR > 60 POC Glucose 39 L* (60-115) mg/dL Random Glucose 124 H (60-115) mg/dL Calcium 9.2 D (8.4-10.2) mg/dL Troponin I High Sens 30.5 H (<3.5-17.0) ng/L B-Natriuretic Peptide (<100) pg/mL Stool Occult Blood (NEGATIVE) COVID-19 (KIKI) (Negative) COVID-19 Clin Com 01/07/22 01/07/22 Range/Units 20:46 20:46 WBC (4.8-10.8) X10*3/uL RBC (4.20-5.50) X10*6/uL Hgb (12.0-16.0) g/dl Hct (37.0-47.0) % MCV (80.0-98.0) fL MCH (27.0-33.0) pg MCHC (31.0-35.0) g/dl RDW (11.0-16.0) % Plt Count (160-400) X10*3/uL MPV (9.4-12.3) fL Immature Gran % (Auto) (0.0-0.4) % Neut % (Auto) (45-73) % Lymph % (Auto) (20-40) % Esmeralda % (Auto) (2-11) % Eos % (Auto) (0-4) % Baso % (Auto) (0-2) % Lymph # (Auto) (1.2-4.9) X10*3/uL Esmeralda # (Auto) (0.1-1.2) X10*3/uL Eos # (Auto) (0.0-0.4) X10*3/uL Baso # (Auto) (0.0-0.2) X10*3/uL Abs Immat Gran (auto) (0.00-0.03) X10*3/uL Absolute Neuts (auto) (2.0-8.3) x10*3/uL Absolute Nucleated RBC (0.0-0.012) X10*3/uL Nucleated RBC % (auto) (0.0-0.2) /100WBC PT 11.8 (9.9-13.0) SEC INR 1.0 (0.9-1.1) Sodium (135-145) mmol/L Potassium (3.3-5.1) mmol/L Chloride (96-108) mmol/L Carbon Dioxide (22-29) mmol/L Anion Gap (12-20) BUN (9-16) mg/dL Creatinine (0.5-1.4) mg/dL Estim Creat Clear Calc Estimated GFR POC Glucose (60-115) mg/dL Random Glucose (60-115) mg/dL Calcium (8.4-10.2) mg/dL Troponin I High Sens (<3.5-17.0) ng/L B-Natriuretic Peptide (<100) pg/mL Stool Occult Blood POSITIVE (NEGATIVE) COVID-19 (KIKI) (Negative) COVID-19 Clin Com Critical Care Time Critical Care Time Critical Care Time: Yes Total Critical Care Time: 60 Attestation: I have personally provided critical care time. Time includes review of lab data, radiology results, discussion with consultants, and monitoring for potential decompensation. Intervention performed as documented. Discharge Plan Discharge Clinical Impression: Anemia, GI bleed, Hypoglycemia Patient Disposition: Admitted As Inpatient Prescriptions: No Action atorvastatin 80 mg Tablet 80 mg PO QPM 0RF lisinopril 20 mg Tablet 20 mg PO DAILY 0RF isosorbide mononitrate 30 mg Tablet Extended Release 24 Hr 30 mg PO DAILY 0RF clopidogrel 75 mg Tablet 75 mg PO DAILY 0RF aspirin 81 mg Tablet 81 mg PO DAILY 0RF albuterol 90 mcg/actuation Aerosol 90 mcg INHALATION Q4-6H PRN (Reason: Shortness Of Breath Or Wheezing) 0RF fluticasone propion-salmeterol [Advair Diskus] 100-50 mcg/dose Blister With Device 1 inh INHALATION BID 0RF Humalog U-100 Insulin 100 unit/mL Cartridge 10 unit SUBCUT TID 0RF insulin glargine 100 unit/mL Cartridge 32 unit SUBCUT QPM 0RF metoprolol succinate 25 mg Capsule,Sprinkle,Er 24hr 25 mg PO DAILY 0RF sucralfate [Carafate] 100 mg/mL suspension 10 ml PO BID Qty: 420 0RF sucralfate [Carafate] 100 mg/mL suspension 10 ml PO BID Qty: 420 0RF Trulance 3 mg tablet 3 mg PO DAILY 30 Days Qty: 30 6RF
--- NOTE | 2022-01-07 21:57 | PHA.MEDREC ---
Pharmacy Consult ? Medication Reconciliation Pharmacy has completed the medication reconciliation.
[2022-01-07 21:59] LABS: Glucose, Whole Blood 104 mg/dL (60-115)
--- NOTE | 2022-01-07 22:41 | PM.IMHP ---
History of Present Illness Date of Service: 01/07/22 Chief Complaint: chest pain 56-year-old female with a past medical history of hypertension, hyperlipidemia, diabetes, CAD status post stent placement, anxiety, depression presented to the hospital with a chief complaint of chest pain. Patient reports that over the past 3-4 days she has been having generalized weakness, body aches, not feeling well. Reports that she has been having shortness of breath which has been gradually worsening. Also mentions dyspnea on exertion. Reports she had intermittent episodes of chest pain, located in the center of the chest, nonradiating, no associated nausea vomiting or diaphoresis. Today she had increased chest pain; hence presented to the ER for further evaluation. Patient also reported swelling in the legs. Denies any numbness tingling or focal weakness. Denies any fever chills cough or sputum production. patient reports that she has significantly decreased energy levels and feels like fish with no water. Review of all other systems is negative except mentioned above ER course: Per ER team patient EKG was nonischemic; troponin was indeterminate; on labs noted to have drop in hemoglobin from 1.4-7.0. Patient stool guaiac was positive. Being transfused 1 unit of blood. Admitted to the hospital for further management. [facility], [facility] Medical History Anxiety Asthma CAD (coronary artery disease) Depression Diabetes History of heart attack HTN (hypertension) Hypercholesteremia Family History Father Diabetes Hypercholesteremia HTN (hypertension) Mother HTN (hypertension) Diabetes Hypercholesteremia Brother HTN (hypertension) Diabetes Surgical History Hx of colonoscopy (04/11/14) Stented coronary artery Social History Household Members: None Alcohol intake: current Alcohol intake frequency: does not drink Advance Directives: No Advance Directives Information Provided: No Meds Allergies Allergy/AdvReac Type Severity Reaction Status Date / Time shellfish derived Allergy Severe Swelling Verified 01/07/22 13:13 [SHELLFISH DERIVED] Penicillins Allergy Mild UNKNOWN - Verified 01/07/22 13:13 RXN CHILD naproxen [NAPROXEN] Allergy Unknown CAN'T TAKE Verified 01/07/22 13:13 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 Glucose (Glucose Gel 15 Gm Gel..Gram.) 15 gm PO Q15M PRN; Protocol PRN Reason: per Hypoglycemia Standing Ord. Insulin Human Lispro (Insulin Lispro 100 Unit/Ml 3 Ml Vial) 0 unit SUBCUT [facility]; Protocol Melatonin (Melatonin 3 Mg Tablet) 6 mg PO BEDTIME PRN PRN Reason: Insomnia Nitroglycerin (Nitroglycerin 0.4 Mg Tab.Subl) 0.4 mg SUBLINGUAL Q5MX3 PRN PRN Reason: Chest Pain Pantoprazole Sodium (Pantoprazole Sodium 40 Mg/10 Ml Vial) 40 mg IVPUSH DAILY@0630 [facility] Senna (Sennosides 8.6 Mg Tablet) 17.2 mg PO BEDTIME PRN PRN Reason: Constipation Sodium Chloride (0.9 % Sodium Chloride Flush 3 Ml Syringe) [facility] Home Medications Medication Instructions Recorded Confirmed Last Taken Type aspirin 81 mg tablet 81 mg PO DAILY 08/13/20 01/07/22 01/07/22 History atorvastatin 80 mg tablet 80 mg PO QPM 08/13/20 01/07/22 01/06/22 History clopidogrel 75 mg tablet 75 mg PO DAILY 08/13/20 01/07/22 01/07/22 History insulin lispro 100 unit/mL See Rx Instructions .ROUTE .COMPLEX 08/13/20 01/07/22 01/07/22 History subcutaneous cartridge (Humalog U-100 Insulin) isosorbide mononitrate 30 mg 30 mg PO DAILY 08/13/20 01/07/22 01/07/22 History tablet,extended release 24 hr lisinopril 20 mg tablet 20 mg PO DAILY 08/13/20 01/07/22 01/07/22 History albuterol sulfate 90 mcg/actuation 2 puff INHALATION Q4-6H PRN 01/07/22 01/07/22 Unknown History aerosol inhaler (ProAir HFA) fluticasone 250 mcg-salmeterol 50 1 puff INHALATION BID 01/07/22 01/07/22 01/07/22 History mcg/dose blistr powdr for inhalation (Advair Diskus) insulin glargine 100 unit/mL (3 32 unit SUBCUT BEDTIME 01/07/22 01/07/22 01/06/22 History mL) subcutaneous pen (Lantus Solostar U-100 Insulin) loratadine 10 mg tablet 1 tab PO QAM 01/07/22 01/07/22 01/07/22 History melatonin 10 mg tablet 10 mg PO BEDTIME PRN 01/07/22 01/07/22 Unknown History metoprolol succinate 50 mg 1 tab PO QAM 01/07/22 01/07/22 01/07/22 History tablet,extended release 24 hr olanzapine 2.5 mg tablet 1 tab PO BEDTIME 01/07/22 01/07/22 01/06/22 History tiotropium bromide 18 mcg capsule 1 cap INHALATION DAILY 01/07/22 01/07/22 01/07/22 History with inhalation device (Spiriva with HandiHaler) Physical Exam Vital Signs and Narrative: Vital Signs: Last Vital Signs Temp 98.4 F 01/07/22 20:32 Pulse 99 01/07/22 20:32 Resp 20 01/07/22 20:32 BP 154/80 H 01/07/22 20:32 Pulse Ox 100 01/07/22 20:32 BMI result Body Mass Index 25.4 Gen: Appears be in no acute distress HEENT: NCAT, Moist mucosa. Pulmonary: Vesicular breath sounds, fair air entry CVS: Normal S1-S2 Abdomen: BS+, Soft, Nontender Extremities: Warm well perfused; trace pedal edema Neuro: Alert and awake. grossly nonfocal Results Labs CBC and Chem 7: 01/07/22 13:22 01/07/22 15:38 Labs: Laboratory Results - last 24 hr 01/07/22 01/07/22 01/07/22 13:22 13:22 13:22 MCV 97.0 MCH 29.8 MCHC 30.7 L RDW 14.3 Plt Count 284 MPV 11.2 Immature Gran % (Auto) 0.7 H Neut % (Auto) 60.1 Lymph % (Auto) 25.7 Dawes % (Auto) 10.6 Eos % (Auto) 2.4 Baso % (Auto) 0.5 Lymph # (Auto) 1.1 L Dawes # (Auto) 0.4 Eos # (Auto) 0.1 Baso # (Auto) 0.0 Abs Immat Gran (auto) 0.03 Absolute Neuts (auto) 2.5 Absolute Nucleated RBC 0.020 H Nucleated RBC % (auto) 0.5 H PT INR Anion Gap Estim Creat Clear Calc Estimated GFR POC Glucose Random Glucose Calcium Troponin I High Sens B-Natriuretic Peptide 128 H Stool Occult Blood COVID-19 (KIKI) Negative COVID-Evaporcool Clin Com See Note Blood Type Antibody Screen Crossmatch 01/07/22 01/07/22 01/07/22 15:38 15:38 20:32 MCV MCH MCHC RDW Plt Count MPV Immature Gran % (Auto) Neut % (Auto) Lymph % (Auto) Dawes % (Auto) Eos % (Auto) Baso % (Auto) Lymph # (Auto) Dawes # (Auto) Eos # (Auto) Baso # (Auto) Abs Immat Gran (auto) Absolute Neuts (auto) Absolute Nucleated RBC Nucleated RBC % (auto) PT INR Anion Gap 13 Estim Creat Clear Calc 69.5 Estimated GFR > 60 POC Glucose 39 L* Random Glucose 124 H Calcium 9.2 D Troponin I High Sens 30.5 H B-Natriuretic Peptide Stool Occult Blood COVID-19 (KIKI) [employer] Com Blood Type Antibody Screen Crossmatch 01/07/22 01/07/22 01/07/22 20:46 20:46 21:26 MCV MCH MCHC RDW Plt Count MPV Immature Gran % (Auto) Neut % (Auto) Lymph % (Auto) Dawes % (Auto) Eos % (Auto) Baso % (Auto) Lymph # (Auto) Dawes # (Auto) Eos # (Auto) Baso # (Auto) Abs Immat Gran (auto) Absolute Neuts (auto) Absolute Nucleated RBC Nucleated RBC % (auto) PT 11.8 INR 1.0 Anion Gap Estim Creat Clear Calc Estimated GFR POC Glucose Random Glucose Calcium Troponin I High Sens B-Natriuretic Peptide Stool Occult Blood POSITIVE COVID-19 (KIKI) COVID-Evaporcool [facility] Com Blood Type B Positive Antibody Screen NEGATIVE Crossmatch See Detail 01/07/22 21:26 MCV MCH MCHC RDW Plt Count MPV Immature Gran % (Auto) Neut % (Auto) Lymph % (Auto) Dawes % (Auto) Eos % (Auto) Baso % (Auto) Lymph # (Auto) Dawes # (Auto) Eos # (Auto) Baso # (Auto) Abs Immat Gran (auto) Absolute Neuts (auto) Absolute Nucleated RBC Nucleated RBC % (auto) PT INR Anion Gap Estim Creat Clear Calc Estimated GFR POC Glucose 104 Random Glucose Calcium Troponin I High Sens B-Natriuretic Peptide Stool Occult Blood COVID-19 (KIKI) COVID-19 Clin Com Blood Type Antibody Screen Crossmatch Imaging Radiologist's Impressions: Impressions Chest X-Ray 01/07/22 13:47 IMPRESSION: Pulmonary venous redistribution and increased interstitial markings suggestive of interstitial pulmonary edema. Assessment and Plan (1) GI bleed: Status: Acute (2) Anemia: Status: Acute (3) Chest pain: Status: Acute Plan 56-year-old female with a past medical history of hypertension, hyperlipidemia, diabetes, CAD status post stent placement, anxiety, depression presented to the hospital with a chief complaint of chest pain/ Shortness of breath/ generalized weakness. Noted to have following conditions Chest pain: Currently resolved. EKG nonischemic. troponin: 30.5-29.1; cardiology consult Patient has known history of CAD- held home aspirin, Plavix until cleared by Gastroenterology given concerns for GI bleed. Continue home statin, metoprolol. Continue home Imdur Sublingual nitroglycerin p.r.n. Dyspnea on exertion: Patient does report fatigue and leg swelling-noted trace pedal edema ProBNP 128 Chest x-ray showed pulmonary congestion Will obtain echocardiogram Symptomatic anemia: Patient hemoglobin dropped from baseline 1.4-7.0. Stool guaiac positive Patient being transfused 1 unit of blood NPO GI consult Will also obtain iron studies Hypoglycemia: Likely in the setting of poor oral intake. Hold home diabetic regimen. Emergency hypoglycemia protocol. Will send hypoglycemia panel. Will keep the patient on D5 half NS Frequent POC glucose checks History of diabetes: Held home Lantus. Insulin sliding scale. history of hypertension: Head home lisinopril for now. Patient continued on Imdur and metoprolol. DVT prophylaxis: SCD boots Code status: Full code Quality Stroke Does the patient have a stroke diagnosis?: No VTE Prior VTE?: No VTE Risk Level:: Medical - moderate - high VTE Device Contraindication: N/A - Device Ordered VTE Drug Contraindication: Treatment Not Indicated
[2022-01-07 22:45] LABS: Troponin-I High Sensitivity 29.1 ng/L (<3.5-17.0)
[2022-01-07 22:59] LABS: Iron 44 mcg/dL (30-160); Percent Iron Saturation 13 % (15-50); Total Iron Binding Capacity 326 mcg/dL (228-428); Unsaturated Iron Binding 282 ug/dL
[2022-01-07 23:08] VITALS: BP 154/93; PULSE 100; RESP 18; TEMP 37.1; O2SAT 98
[2022-01-07 23:20] LABS: Ferritin 274 ng/mL (10-250)
[2022-01-07 23:21] VITALS: BP 164/82; PULSE 97; RESP 18; TEMP 37.3
[2022-01-07] MEDS: Atorvastatin Calcium 80 MG TABLET PO (23:27)
[2022-01-07] MEDS: OLANZapine 2.5 MG TABLET PO (23:27)
[2022-01-07] MEDS: Melatonin 3 MG TABLET 6 MG PO (23:27)
[2022-01-07 23:45] VITALS: BP 140/60; PULSE 96; RESP 18; TEMP 37.4
[2022-01-08] VITALS (8 sets, daily range): BP systolic 127–163; BP diastolic 62–114; PULSE 88–99; RESP 12–20; TEMP 36.2–37.1; O2SAT 92–100
--- NOTE | 2022-01-08 02:52 | PC.NURSE ---
Assumed care of pt Pt tolerating PRBC. Per report, 1st unit NAD Will continue to monitor
[2022-01-08] MEDS: Pantoprazole Sodium 40 MG/10 ML VIAL IVPUSH (05:43)
[2022-01-08 06:40] LABS: Glucose, Whole Blood 48 mg/dL (60-115)
[2022-01-08] MEDS: Dextrose 50 % 25 GM/50 ML SYRINGE IVPUSH (06:48)
--- NOTE | 2022-01-08 07:00 | CA_ITS ---
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 - The apex segment is hypokinetic. Findings Procedure Information Contrast agent, definity, is being given per protocol without apparent complications. Left Ventricle Normal left ventricular size and systolic function. There is mildly increased left ventricular wall thickness. There is evidence of regional wall motion abnormalities. Diastolic function is normal for age. Wall Motion Rest Echo Findings The apex segment is hypokinetic. Right Ventricle Normal right ventricular cavity size and systolic function. Atria The left atrium is mildly dilated. Aortic Valve Normal aortic valve structure and function. There is no aortic valve stenosis. There is no aortic valve regurgitation. Mitral Valve Normal mitral valve structure and function. There is trace mitral valve regurgitation. There is no mitral valve stenosis. Pulmonic Valve Normal pulmonic valve structure and function. There is trace pulmonic valve regurgitation. Tricuspid Valve Normal tricuspid valve structure and function. There is trace tricuspid valve regurgitation. Normal right atrial pressure. There is no evidence of pulmonary hypertension. Great Vessels All visible segments of the aorta are normal in size. The visualized portions of the pulmonary artery and branches are normal. Venous The inferior vena cava is normal in size and collapses greater than 50% with inspiration. Pericardium/Pleural There is no evidence of pericardial effusion. Measurements 2D Linear Measurements IVSd: 1.10 0.6-0.9/0.6-1.0 cm LVIDd: 4.34 3.9-5.3/4.2-5.9 cm LVIDd Index: 2.65 2.4-3.2/2.2-3.1 cm/m2 LVIDs: 2.49 2.0-3.6 cm LVPWd: 1.12 0.7-1.1 cm Ao Root: 3.20 2.1-3.5 cm LA Diam: 3.60 2.7-3.8/3.0-4.0 cm LAIDs Index: 2.20 1.5-2.3 cm/m2 LV Mass: 208.58 67-162/88-224 g LV Mass Index: 127.18 43-95/49-115 g/m2 LVOT Diam: 2.00 3.0+(-)1.3 cm Mitral Valve MV Pk E: 0.81 MV PK A: 0.92 MV Decel Time: 157.00 E/A: 0.90 E'Lateral: 8.05 E'Medial: 8.49 E/E' Med: 9.60 E/E' Lat: 10.10 PHT: 46.00 MVA PHT: 4.78 Decel Sibley: 5.20 Aortic Valve AoV Pk Audi: 1.41 AoV Mn Audi: 1.03 AoV VTI: 0.30 AoV Pk Grad: 8.00 Aov Mn Grad: 5.00 [place] Cont.VTI: 2.13 LVOT LVOT Pk Audi: 0.95 LVOT Mn Audi: 0.64 LVOT VTI: 0.21 LVOT Pk Grad: 4.00 LVOT Mn Grad: 2.00 LVOT Diam: 2.00 LVOT Area: 3.14 Diastolic Function MV Pk E: 0.81 MV Pk A: 0.92 E/A: 0.90 E'Medial: 8.49 E/E' Med: 9.60 E' Laterial: 8.05 E/E' Lat: 10.10 Tricuspid Valve TR Pk Audi: 1.86 TR Pk Grad: 14.00 RA Press: 3.00 RVSP: 17.00 Great Vessels Aorta Ao Root-2D: 3.20 2.0-3.7 cm Ao Asc: 3.00 2.1-3.4 cm Pulmonary Valve PV Pk Audi: 1.11 Peak PV Grad: 5.00 Updated in Other Vendor System with Status of Final Ermias Taylor MD electronically signed on 01/08/2022 4:38:55 PM with status of Final
[2022-01-08 07:01] LABS: Folate > 20.0 ng/mL (> or = 4.0); Vitamin B12 757 pg/mL (200-900)
[2022-01-08 07:03] LABS: Glucose, Whole Blood 203 mg/dL (60-115)
[2022-01-08] MEDS: Dextrose 5 % and 0.45 % NaCl 1,000 ML 80 ML IVCONT (07:23)
[2022-01-08 07:40] LABS: MANUAL DIFF FLAG NO
[2022-01-08 07:43] LABS: Basophils Percent Auto 0.3 % (0-2); Eosinophils Absolute Auto 0.4 X10*3/uL (0.0-0.4); Eosinophils Percent Auto 5.5 % (0-4); Hematocrit 29.1 % (37.0-47.0); Hemoglobin 9.2 g/dl (12.0-16.0); Imm Gran Abs Auto 0.05 X10*3/uL (0.00-0.03); Imm Gran Pct Auto 0.7 % (0.0-0.4); Lymphocytes Absolute Auto 1.1 X10*3/uL (1.2-4.9); Lymphocytes Percent Auto 14.4 % (20-40); Mean Corpuscular HGB Conc 31.6 g/dl (31.0-35.0); Mean Corpuscular Hemoglobin 29.5 pg (27.0-33.0); Mean Corpuscular Volume 93.3 fL (80.0-98.0); Mean Platelet Volume 10.4 fL (9.4-12.3); Monocytes Absolute Auto 0.8 X10*3/uL (0.1-1.2); Neutrophils Absolute Auto 5.2 x10*3/uL (2.0-8.3); Neutrophils Percent Auto 69.1 % (45-73); Platelet Count 287 X10*3/uL (160-400); Red Blood Count 3.12 X10*6/uL (4.20-5.50); Red Cell Distribution Width 14.8 % (11.0-16.0); White Blood Count 7.6 X10*3/uL (4.8-10.8)
[2022-01-08 07:54] LABS: Anion Gap 12 (12-20); Blood Urea Nitrogen 9 mg/dL (9-16); Calcium 9.3 mg/dL (8.4-10.2); Carbon Dioxide 26 mmol/L (22-29); Chloride 107 mmol/L (96-108); Creatinine Clr Calc Pharmacy 68.7; Estimated Glomerular Filt Rate > 60; Glucose Random 154 mg/dL (60-115); Potassium 3.7 mmol/L (3.3-5.1); Sodium 141 mmol/L (135-145)
[2022-01-08] MEDS: Metoprolol Succinate ER 50 MG TAB.ER.24H PO (08:28)
[2022-01-08] MEDS: Loratadine 10 MG TABLET PO (08:28)
[2022-01-08] MEDS: Isosorbide Mononitrate 30 MG TAB.ER.24H PO (08:28)
--- NOTE | 2022-01-08 09:20 | P.CONCA_ITS ---
History of Present Illness History of Present Illness Date of Service: 01/08/22 Requesting physician: Samson Mendez Chief complaint: CP, +troponin Narrative: 56 year old presenting with CP and SOB due to symptomatic anemia. She has background of anterior STEMI in 2013 when she had primary PCI with 3.5 mm stent. In 2016 she had repeat cath which was unremarkable. She is not presenting with CP and SOB. CP is different than her anginal symptoms. She has anemia and received blood transfusion. Feeling better. [facility] Past Medical History Medical History Anxiety Asthma CAD (coronary artery disease) Depression Diabetes History of heart attack HTN (hypertension) Hypercholesteremia Family History Family History Father Diabetes Hypercholesteremia HTN (hypertension) Mother HTN (hypertension) Diabetes Hypercholesteremia Brother HTN (hypertension) Diabetes Surgical History Surgical History Hx of colonoscopy (04/11/14) Stented coronary artery Social History Social History Household Members: None Alcohol intake: current Alcohol intake frequency: does not drink Advance Directives: No Advance Directives Information Provided: No Meds Allergies Allergy/AdvReac Type Severity Reaction Status Date / Time shellfish derived Allergy Severe Swelling Verified 01/07/22 13:13 [SHELLFISH DERIVED] Penicillins Allergy Mild UNKNOWN - Verified 01/07/22 13:13 RXN CHILD naproxen [NAPROXEN] Allergy Unknown CAN'T TAKE Verified 01/07/22 13:13 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 Last Admin: 01/08/22 06:48 Dose: 25 gm Documented by: Glucose (Glucose Gel 15 Gm Gel..Gram.) 15 gm PO Q15M PRN; Protocol PRN Reason: per Hypoglycemia Standing Ord. Dextrose/Sodium Chloride (D51/2ns) 1,000 mls @ 80 mls/hr IVCONT .[id number] [facility] Last Admin: 01/08/22 07:23 Dose: 80 mls/hr Documented by: Insulin Human Lispro (Insulin Lispro 100 Unit/Ml 3 Ml Vial) 0 unit SUBCUT QIDACHS [facility]; Protocol Last Admin: 01/08/22 08:23 Dose: Not Given Documented by: Isosorbide Mononitrate (Isosorbide Mononitrate 30 Mg Tab.Er.24h) 30 mg PO DAILY [facility]; Protocol Last Admin: 01/08/22 08:28 Dose: 30 mg Documented by: Loratadine (Loratadine 10 Mg Tablet) 10 mg PO DAILY [facility] Last Admin: 01/08/22 08:28 Dose: 10 mg Documented by: Melatonin (Melatonin 3 Mg Tablet) 6 mg PO BEDTIME PRN PRN Reason: Insomnia Last Admin: 01/07/22 23:27 Dose: 6 mg Documented by: Metoprolol Succinate (Metoprolol Succinate Er 50 Mg Tab.Er.24h) 50 mg PO DAILY [facility]; Protocol Last Admin: 01/08/22 08:28 Dose: 50 mg Documented by: Nitroglycerin (Nitroglycerin 0.4 Mg Tab.Subl) 0.4 mg SUBLINGUAL Q5MX3 PRN PRN Reason: Chest Pain Olanzapine (Olanzapine 2.5 Mg Tablet) 2.5 mg PO BEDTIME [facility] Last Admin: 01/07/22 23:27 Dose: 2.5 mg Documented by: Pantoprazole Sodium (Pantoprazole Sodium 40 Mg/10 Ml Vial) 40 mg IVPUSH DAILY@ 0630 [facility] Last Admin: 01/08/22 05:43 Dose: 40 mg Documented by: Senna (Sennosides 8.6 Mg Tablet) 17.2 mg PO BEDTIME PRN PRN Reason: Constipation Sodium Chloride (0.9 % Sodium Chloride Flush 3 Ml Syringe) 3 ml IVFLUSH QSHIFT [facility] Last Admin: 01/08/22 08:23 Dose: Not Given Documented by: Tiotropium [place] (Tiotropium [place] 18 Mcg Cap.W.Dev) 1 puff INHALE RDAILY [facility] Last Admin: 01/08/22 07:59 Dose: Not Given Documented by: Home Medications Medication Instructions Recorded Confirmed Last Taken Type aspirin 81 mg tablet 81 mg PO DAILY 08/13/20 01/07/22 01/07/22 History atorvastatin 80 mg tablet 80 mg PO QPM 08/13/20 01/07/22 01/06/22 History clopidogrel 75 mg tablet 75 mg PO DAILY 08/13/20 01/07/22 01/07/22 History insulin lispro 100 unit/mL See Rx Instructions .ROUTE .COMPLEX 08/13/20 01/07/22 01/07/22 History subcutaneous cartridge (Humalog U-100 Insulin) isosorbide mononitrate 30 mg 30 mg PO DAILY 08/13/20 01/07/22 01/07/22 History tablet,extended release 24 hr lisinopril 20 mg tablet 20 mg PO DAILY 08/13/20 01/07/22 01/07/22 History albuterol sulfate 90 mcg/actuation 2 puff INHALATION Q4-6H PRN 01/07/22 01/07/22 Unknown History aerosol inhaler (ProAir HFA) fluticasone 250 mcg-salmeterol 50 1 puff INHALATION BID 01/07/22 01/07/22 01/07/22 History mcg/dose blistr powdr for inhalation (Advair Diskus) insulin glargine 100 unit/mL (3 32 unit SUBCUT BEDTIME 01/07/22 01/07/22 01/06/22 History mL) subcutaneous pen (Lantus Solostar U-100 Insulin) loratadine 10 mg tablet 1 tab PO QAM 01/07/22 01/07/22 01/07/22 History melatonin 10 mg tablet 10 mg PO BEDTIME PRN 01/07/22 01/07/22 Unknown History metoprolol succinate 50 mg 1 tab PO QAM 01/07/22 01/07/22 01/07/22 History tablet,extended release 24 hr olanzapine 2.5 mg tablet 1 tab PO BEDTIME 01/07/22 01/07/22 01/06/22 History tiotropium bromide 18 mcg capsule 1 cap INHALATION DAILY 01/07/22 01/07/22 01/07/22 History with inhalation device (Spiriva with HandiHaler) Physical Exam Vital Signs: Vital Signs: Last Vital Signs Temp 98 F 01/08/22 03:15 Pulse 99 01/08/22 08:19 Resp 20 01/08/22 08:19 BP 149/62 H 01/08/22 08:19 Pulse Ox 92 01/08/22 08:19 BMI result Body Mass Index 25.4 GENERAL APPEARANCE: in no acute distress, pleasant. NECK: no carotid bruit, no jugular venous distention. SKIN: no suspicious lesions, warm and dry. HEART: no murmurs, regular rate and rhythm. LUNGS: clear to auscultation bilaterally. ABDOMEN: soft, nontender. EXTREMITIES: no edema. PERIPHERAL PULSES: equal. NEUROLOGIC: No gross deficits, AAO X 3 Objective Labs and Meds Result diagrams: 01/08/22 07:34 01/08/22 07:34 Lab results: Laboratory Results - last 24 hr 01/07/22 01/07/22 01/07/22 13:22 13:22 13:22 WBC 4.2 L RBC 2.35 L D Hgb 7.0 L* D Hct 22.8 L D MCV 97.0 MCH 29.8 MCHC 30.7 L RDW 14.3 Plt Count 284 MPV 11.2 Immature Gran % (Auto) 0.7 H Neut % (Auto) 60.1 Lymph % (Auto) 25.7 [place] % (Auto) 10.6 Eos % (Auto) 2.4 Baso % (Auto) 0.5 Lymph # (Auto) 1.1 L [place] # (Auto) 0.4 Eos # (Auto) 0.1 Baso # (Auto) 0.0 Abs Immat Gran (auto) 0.03 Absolute Neuts (auto) 2.5 Absolute Nucleated RBC 0.020 H Nucleated RBC % (auto) 0.5 H PT INR Sodium Potassium Chloride Carbon Dioxide Anion Gap BUN Creatinine Estim Creat Clear Calc Estimated GFR POC Glucose Random Glucose Calcium Iron TIBC % Saturation Unsat Iron Binding Ferritin Troponin I High Sens B-Natriuretic Peptide 128 H Vitamin B12 Folate Stool Occult Blood COVID-19 (KIKI) Negative COVID-19 Clin Com See Note Blood Type Antibody Screen Crossmatch 01/07/22 01/07/22 01/07/22 13:22 13:22 15:38 WBC RBC Hgb Hct MCV MCH MCHC RDW Plt Count MPV Immature Gran % (Auto) Neut % (Auto) Lymph % (Auto) [place] % (Auto) Eos % (Auto) Baso % (Auto) Lymph # (Auto) [place] # (Auto) Eos # (Auto) Baso # (Auto) Abs Immat Gran (auto) Absolute Neuts (auto) Absolute Nucleated RBC Nucleated RBC % (auto) PT INR Sodium 145 Potassium 3.7 Chloride 112 H Carbon Dioxide 24 Anion Gap 13 BUN 10 Creatinine 0.77 Estim Creat Clear Calc 69.5 Estimated GFR > 60 POC Glucose Random Glucose 124 H Calcium 9.2 D Iron 44 TIBC 326 % Saturation 13 L Unsat Iron Binding 282 Ferritin 274 H Troponin I High Sens B-Natriuretic Peptide Vitamin B12 757 Folate > 20.0 Stool Occult Blood COVID-19 (KIKI) [employer] Blood Type Antibody Screen Crossmatch 01/07/22 01/07/22 01/07/22 15:38 20:32 20:46 WBC RBC Hgb Hct MCV MCH MCHC RDW Plt Count MPV Immature Gran % (Auto) Neut % (Auto) Lymph % (Auto) [place] % (Auto) Eos % (Auto) Baso % (Auto) Lymph # (Auto) [place] # (Auto) Eos # (Auto) Baso # (Auto) Abs Immat Gran (auto) Absolute Neuts (auto) Absolute Nucleated RBC Nucleated RBC % (auto) PT 11.8 INR 1.0 Sodium Potassium Chloride Carbon Dioxide Anion Gap BUN Creatinine Estim Creat Clear Calc Estimated GFR POC Glucose 39 L* Random Glucose Calcium Iron TIBC % Saturation Unsat Iron Binding Ferritin Troponin I High Sens 30.5 H B-Natriuretic Peptide Vitamin B12 Folate Stool Occult Blood COVID-19 (KIKI) [employer] Blood Type Antibody Screen Crossmatch 01/07/22 01/07/22 01/07/22 20:46 21:26 21:26 WBC RBC Hgb Hct MCV MCH MCHC RDW Plt Count MPV Immature Gran % (Auto) Neut % (Auto) Lymph % (Auto) [place] % (Auto) Eos % (Auto) Baso % (Auto) Lymph # (Auto) [place] # (Auto) Eos # (Auto) Baso # (Auto) Abs Immat Gran (auto) Absolute Neuts (auto) Absolute Nucleated RBC Nucleated RBC % (auto) PT INR Sodium Potassium Chloride Carbon Dioxide Anion Gap BUN Creatinine Estim Creat Clear Calc Estimated GFR POC Glucose 104 Random Glucose Calcium Iron TIBC % Saturation Unsat Iron Binding Ferritin Troponin I High Sens B-Natriuretic Peptide Vitamin B12 Folate Stool Occult Blood POSITIVE COVID-19 (KIKI) COVID-19 [facility] Blood Type B Positive Antibody Screen NEGATIVE Crossmatch See Detail 01/07/22 01/08/22 01/08/22 22:21 06:36 07:00 WBC RBC Hgb Hct MCV MCH MCHC RDW Plt Count MPV Immature Gran % (Auto) Neut % (Auto) Lymph % (Auto) [place] % (Auto) Eos % (Auto) Baso % (Auto) Lymph # (Auto) [place] # (Auto) Eos # (Auto) Baso # (Auto) Abs Immat Gran (auto) Absolute Neuts (auto) Absolute Nucleated RBC Nucleated RBC % (auto) PT INR Sodium Potassium Chloride Carbon Dioxide Anion Gap BUN Creatinine Estim Creat Clear Calc Estimated GFR POC Glucose 48 L* 203 H Random Glucose Calcium Iron TIBC % Saturation Unsat Iron Binding Ferritin Troponin I High Sens 29.1 H B-Natriuretic Peptide Vitamin B12 Folate Stool Occult Blood COVID-19 (KIKI) COVID-19 [facility] Blood Type Antibody Screen Crossmatch 01/08/22 01/08/22 07:34 07:34 WBC 7.6 RBC 3.12 L D Hgb 9.2 L D Hct 29.1 L D MCV 93.3 MCH 29.5 MCHC 31.6 RDW 14.8 Plt Count 287 MPV 10.4 Immature Gran % (Auto) 0.7 H Neut % (Auto) 69.1 Lymph % (Auto) 14.4 L [place] % (Auto) 10.0 Eos % (Auto) 5.5 H Baso % (Auto) 0.3 Lymph # (Auto) 1.1 L [place] # (Auto) 0.8 Eos # (Auto) 0.4 Baso # (Auto) 0.0 Abs Immat Gran (auto) 0.05 H Absolute Neuts (auto) 5.2 Absolute Nucleated RBC 0.000 Nucleated RBC % (auto) 0.0 PT INR Sodium 141 Potassium 3.7 Chloride 107 Carbon Dioxide 26 Anion Gap 12 BUN 9 Creatinine 0.78 Estim Creat Clear Calc 68.7 Estimated GFR > 60 POC Glucose Random Glucose 154 H Calcium 9.3 Iron TIBC % Saturation Unsat Iron Binding Ferritin Troponin I High Sens B-Natriuretic Peptide Vitamin B12 Folate Stool Occult Blood COVID-19 (KIKI) COVID-19 Clin Com Blood Type Antibody Screen Crossmatch Imaging Radiologist's impression: Impressions Chest X-Ray 01/07/22 13:47 IMPRESSION: Pulmonary venous redistribution and increased interstitial markings suggestive of interstitial pulmonary edema. Assessment and Plan (1) Chest pain: Status: Acute (2) Anemia: Status: Acute (3) GI bleed: Status: Acute Plan Labs and ECG reviewed. Here with CP and SOB in setting of anemia. Symptoms due to anemia. Stent is from 2013 so can hold DAPT. Will need endoscopy. Can proceed with intermediate risk. After endoscopy resume ASA based on GI recs. Mildly abnormal troponins are due to demand supply mismatch due to anemia. Not ACS. Procedures Date of Service Date of Service: 01/08/22
[2022-01-08 09:53] LABS: Glucose, Whole Blood 148 mg/dL (60-115)
--- NOTE | 2022-01-08 10:20 | P.CNGI_ITS ---
History of Present Illness Data of Consult Service Date: 01/08/22 Requesting physician: Han Ayala Primary Care Provider: Brittnee Hanna MD HPI Reason for consult: anemia ?56-year-old female with a past medical history of hypertension, hyperlipidemia, diabetes, CAD s/p stent placement 2013, anxiety, depression who I am seeing for assessment for anemia. She presented with non radiating central chest pain, 10/10 and exertional dyspnea. she denied cough, no sputum, no fever, no sweats or chills. [facility] also noted icnreased leg swelling as well as malaise and weakness. Pain was not worsened or relieved by anything. She has been on RAFAEL with aspirin and plavix. no other nsaids. She deneis rectal bleeding, epistaxis, hematuria, vaginal bleeding but does admit to one epsiode of large volume black stool 4-5 days ago, but then went back to being brown. Labs revealed anemia, and she received 1 unti of PRBC with good incrementation of HGB from 7--->9 Trop mildly elevated, ECG with t wave flattening in inferior lateral leads. She feels much better now and chest pain after blood transfusion last colonoscopy 2020--no masses, prep fair, recommended to have early repeat, hyperplastic polyp removed Review of Systems Review of Systems: Constitutional : No Weight loss, No Fever, No Chills ENT/Mouth : No sore throat, No Rhinorrhea Eyes: No Swelling, No Redness Cardiovascular : + Chest Pain, + SOB, + Edema Respiratory : No Cough, No Sputum, No Wheezing Gastrointestinal : see HPI Genitourinary : NO Dysuria, No Urinary Frequency, No Hematuria, No Urgency Musculoskeletal : No joint pain, No Myalgias, No Joint Swelling Skin : No Skin Lesions, No rash Neuro : No Weakness, No Numbness, No Dizziness, No Headache Psych : No Anxiety/Panic, No Depression Heme/Lymph: No Bruising, No Lymphadenopathy Endocrine : No Polyuria, No Polydipsia All other systems reviewed and are negative. Hematologic/Lymphatic: Hematologic/Lymphatic: Reports no additional hematologic/lymphatic complaints Allergic/Immunologic: Allergic/Immunologic: Reports no additional allergic/immunologic complaints [facility] Past Medical History Medical History Anxiety Asthma CAD (coronary artery disease) Depression Diabetes History of heart attack HTN (hypertension) Hypercholesteremia Family History Family History Father Diabetes Hypercholesteremia HTN (hypertension) Mother HTN (hypertension) Diabetes Hypercholesteremia Brother HTN (hypertension) Diabetes Surgical History Surgical History Hx of colonoscopy (04/11/14) Stented coronary artery Social History Social History Household Members: None Alcohol intake: current Alcohol intake frequency: does not drink Advance Directives: No Advance Directives Information Provided: No Meds Allergies Allergy/AdvReac Type Severity Reaction Status Date / Time shellfish derived Allergy Severe Swelling Verified 01/07/22 13:13 [SHELLFISH DERIVED] Penicillins Allergy Mild UNKNOWN - Verified 01/07/22 13:13 RXN CHILD naproxen [NAPROXEN] Allergy Unknown CAN'T TAKE Verified 01/07/22 13:13 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 Last Admin: 01/08/22 06:48 Dose: 25 gm Documented by: Glucose (Glucose Gel 15 Gm Gel..Gram.) 15 gm PO Q15M PRN; Protocol PRN Reason: per Hypoglycemia Standing Ord. Dextrose/Sodium Chloride (D51/2ns) 1,000 mls @ 80 mls/hr IVCONT .[id number] [facility] Last Admin: 01/08/22 07:23 Dose: 80 mls/hr Documented by: Insulin Human Lispro (Insulin Lispro 100 Unit/Ml 3 Ml Vial) 0 unit SUBCUT QIDACHS [facility]; Protocol Last Admin: 01/08/22 08:23 Dose: Not Given Documented by: Isosorbide Mononitrate (Isosorbide Mononitrate 30 Mg Tab.Er.24h) 30 mg PO DAILY [facility]; Protocol Last Admin: 01/08/22 08:28 Dose: 30 mg Documented by: Loratadine (Loratadine 10 Mg Tablet) 10 mg PO DAILY [facility] Last Admin: 01/08/22 08:28 Dose: 10 mg Documented by: Melatonin (Melatonin 3 Mg Tablet) 6 mg PO BEDTIME PRN PRN Reason: Insomnia Last Admin: 01/07/22 23:27 Dose: 6 mg Documented by: Metoprolol Succinate (Metoprolol Succinate Er 50 Mg Tab.Er.24h) 50 mg PO DAILY [facility]; Protocol Last Admin: 01/08/22 08:28 Dose: 50 mg Documented by: Nitroglycerin (Nitroglycerin 0.4 Mg Tab.Subl) 0.4 mg SUBLINGUAL Q5MX3 PRN PRN Reason: Chest Pain Olanzapine (Olanzapine 2.5 Mg Tablet) 2.5 mg PO BEDTIME [facility] Last Admin: 01/07/22 23:27 Dose: 2.5 mg Documented by: Pantoprazole Sodium (Pantoprazole Sodium 40 Mg/10 Ml Vial) 40 mg IVPUSH DAILY@0630 [facility] Last Admin: 01/08/22 05:43 Dose: 40 mg Documented by: Senna (Sennosides 8.6 Mg Tablet) 17.2 mg PO BEDTIME PRN PRN Reason: Constipation Sodium Chloride (0.9 % Sodium Chloride Flush 3 Ml Syringe) 3 ml IVFLUSH QSHIFT [facility] Last Admin: 01/08/22 08:23 Dose: Not Given Documented by: Tiotropium [place] (Tiotropium [place] 18 Mcg Cap.W.Dev) 1 puff INHALE RDAILY [facility] Last Admin: 01/08/22 07:59 Dose: Not Given Documented by: Home Medications Medication Instructions Recorded Confirmed Last Taken Type aspirin 81 mg tablet 81 mg PO DAILY 08/13/20 01/07/22 01/07/22 History atorvastatin 80 mg tablet 80 mg PO QPM 08/13/20 01/07/22 01/06/22 History clopidogrel 75 mg tablet 75 mg PO DAILY 08/13/20 01/07/22 01/07/22 History insulin lispro 100 unit/mL See Rx Instructions .ROUTE .COMPLEX 08/13/20 01/07/22 01/07/22 History subcutaneous cartridge (Humalog U-100 Insulin) isosorbide mononitrate 30 mg 30 mg PO DAILY 08/13/20 01/07/22 01/07/22 History tablet,extended release 24 hr lisinopril 20 mg tablet 20 mg PO DAILY 08/13/20 01/07/22 01/07/22 History albuterol sulfate 90 mcg/actuation 2 puff INHALATION Q4-6H PRN 01/07/22 01/07/22 Unknown History aerosol inhaler (ProAir HFA) fluticasone 250 mcg-salmeterol 50 1 puff INHALATION BID 01/07/22 01/07/22 01/07/22 History mcg/dose blistr powdr for inhalation (Advair Diskus) insulin glargine 100 unit/mL (3 32 unit SUBCUT BEDTIME 01/07/22 01/07/22 01/06/22 History mL) subcutaneous pen (Lantus Solostar U-100 Insulin) loratadine 10 mg tablet 1 tab PO QAM 01/07/22 01/07/22 01/07/22 History melatonin 10 mg tablet 10 mg PO BEDTIME PRN 01/07/22 01/07/22 Unknown History metoprolol succinate 50 mg 1 tab PO QAM 01/07/22 01/07/22 01/07/22 History tablet,extended release 24 hr olanzapine 2.5 mg tablet 1 tab PO BEDTIME 01/07/22 01/07/22 01/06/22 History tiotropium bromide 18 mcg capsule 1 cap INHALATION DAILY 01/07/22 01/07/22 01/07/22 History with inhalation device (Spiriva with HandiHaler) Physical Exam Vital Signs: Vital Signs: Last Vital Signs Temp 98 F 01/08/22 03:15 Pulse 99 01/08/22 08:19 Resp 20 01/08/22 08:19 BP 149/62 H 01/08/22 08:19 Pulse Ox 92 01/08/22 08:19 BMI result Body Mass Index 25.4 EXAM: GENERAL: The patient is well developed and nontoxic. VITAL SIGNS:see workflow HEENT: Nonicteric sclerae, PERRLA, EOMI. Oropharynx clear. Moist mucous membranes. Conjunctivae appear well perfused. No thyroid mass. CHEST: Chest wall is nontender. HEART: Regular rate and rhythm without murmurs. LUNGS: Clear to auscultation bilaterally. ABDOMEN: Soft, positive bowel sounds, nontender, no organomegaly.no flank tenderness SKIN: No rash, no excessive bruising, petechiae, or purpura. NEUROLOGIC: Cranial nerves II-XII intact without motor/sensory deficit. Psych: nml affect Extrem: General: Yes normal to inspection Results Labs CBC & Chem 7: 01/08/22 07:34 01/08/22 07:34 Labs: Short CBC 01/07/22 01/08/22 Range/Units 13:22 07:34 WBC 4.2 L 7.6 (4.8-10.8) X10*3/uL Hgb 7.0 L* D 9.2 L D (12.0-16.0) g/dl Hct 22.8 L D 29.1 L D (37.0-47.0) % Plt Count 284 287 (160-400) X10*3/uL BMP 01/07/22 01/08/22 15:38 07:34 Sodium 145 141 Potassium 3.7 3.7 Chloride 112 H 107 Carbon Dioxide 24 26 BUN 10 9 Creatinine 0.77 0.78 Calcium 9.2 D 9.3 Assessment and Plan (1) Symptomatic anemia: Status: Acute (2) GI bleed: Status: Acute (3) Chest pain: Status: Acute Plan 1/ Anemia, possible due to subacute blood loss with description of isolated episode of melena few days back whilst being on aspirin and plavix. She had chest pain, now resolved with PRBC transfusion, which is consistent with supply demand mismatch. Seh may have PUD due to aspirin use, gastritis, bleeding AVM, neoplasia. PLAN: 1/ Prep and clears today incl with golyte and dulcolax 2/ monitor HGB as doing, 3/ can use PPI e.g 40 mg pantoprazoel daily 4/ plan for EGD, colonoscopy tomorrow. Procedures Date of Service Date of Service: 01/08/22
[2022-01-08 12:00] LABS: Glucose, Whole Blood 82 mg/dL (60-115)
[2022-01-08 13:10] LABS: Glucose, Whole Blood 120 mg/dL (60-115)
--- NOTE | 2022-01-08 13:51 | HO.PM.IMPN ---
Subjective Subjective Date of Service: 01/08/22 Interval History: seen and evaluated this morning Feels more comfortable, chest pain resolved No reported bleeding dropped her glucose level to 39 at admission, had another episode of 59 this morning since has been stable No other overnight events Review of Systems No fever, chills or weakness Improved chest pain, palpitation No shortness of breath or coughing No abdominal pain, nausea or vomiting No urinary symptoms No any rash or wounds Physical Exam Vital Signs: Vital Signs: Last Vital Signs Temp 97.2 F 01/08/22 12:00 Pulse 88 01/08/22 12:00 Resp 12 01/08/22 12:00 BP 137/114 H 01/08/22 12:00 Pulse Ox 97 01/08/22 12:00 BMI result Body Mass Index 25.4 Const: Other: Constitutional : Alert, oriented, not in distress Neck : Normal inspection, Supple Cardiovascular : RRR, no JVP, no lower extremity edema Respiratory : fair bilateral air entry, no crackles, wheezes or rhonchi Gastrointestinal: soft, lax, Normal bowel sounds, Non tender Skin : Warm, Dry Neurological : Alert & oriented x3, No focal deficit , CN 2-12 within normal Objective Data Active Medications Acetaminophen (Acetaminophen 325 Mg Tablet) 650 mg PO Q6H PRN PRN Reason: Pain, Mild (Pain Scale 1-3) Albuterol Sulfate (Albuterol Sulfate 90 Mcg 8 Gm Inhaler) 2 puff INHALE Q4H PRN PRN Reason: Wheezing Atorvastatin Calcium (Atorvastatin Calcium 80 Mg Tablet) 80 mg PO BEDTIME [facility] Last Admin: 01/07/22 23:27 Dose: 80 mg Documented by: MOHINDER Bisacodyl (Bisacodyl 5 Mg Tablet.Dr) 10 mg PO ONCE ONE Stop: 01/08/22 14:03 Dextrose (Dextrose 50 % 25 Gm/50 Ml Syringe) 25 gm IVPUSH Q15M PRN; Protocol PRN Reason: per Hypoglycemia Standing Ord. Last Admin: 01/08/22 06:48 Dose: 25 gm Documented by: LEONARDO Glucose (Glucose Gel 15 Gm Gel..Gram.) 15 gm PO Q15M PRN; Protocol PRN Reason: per Hypoglycemia Standing Ord. Dextrose/Sodium Chloride (D51/2ns) 1,000 mls @ 80 mls/hr IVCONT .[id number] [facility] Last Admin: 01/08/22 07:23 Dose: 80 mls/hr Documented by: LEONARDO Insulin Human Lispro (Insulin Lispro 100 Unit/Ml 3 Ml Vial) 0 unit SUBCUT QIDACHS [facility]; Protocol Last Admin: 01/08/22 13:01 Dose: Not Given Documented by: OKSANA Non-Admin Reason: No Insulin Coverage Isosorbide Mononitrate (Isosorbide Mononitrate 30 Mg Tab.Er.24h) 30 mg PO DAILY [facility]; Protocol Last Admin: 01/08/22 08:28 Dose: 30 mg Documented by: OKSANA Loratadine (Loratadine 10 Mg Tablet) 10 mg PO DAILY [facility] Last Admin: 01/08/22 08:28 Dose: 10 mg Documented by: OKSANA Melatonin (Melatonin 3 Mg Tablet) 6 mg PO BEDTIME PRN PRN Reason: Insomnia Last Admin: 01/07/22 23:27 Dose: 6 mg Documented by: MOHINDER Metoprolol Succinate (Metoprolol Succinate Er 50 Mg Tab.Er.24h) 50 mg PO DAILY [facility]; Protocol Last Admin: 01/08/22 08:28 Dose: 50 mg Documented by: OKSANA Nitroglycerin (Nitroglycerin 0.4 Mg Tab.Subl) 0.4 mg SUBLINGUAL Q5MX3 PRN PRN Reason: Chest Pain Olanzapine (Olanzapine 2.5 Mg Tablet) 2.5 mg PO BEDTIME [facility] Last Admin: 01/07/22 23:27 Dose: 2.5 mg Documented by: MOHINDER Ondansetron HCl (Ondansetron Odt 8 Mg Tab.Rapdis) 8 mg TRANSLINGU Q8H PRN PRN Reason: Nausea Pantoprazole Sodium (Pantoprazole Sodium 40 Mg/10 Ml Vial) 40 mg IVPUSH DAILY@0630 [facility] Last Admin: 01/08/22 05:43 Dose: 40 mg Documented by: LEONARDO Polyethylene Glycol/Electrolytes (Peg 3350/Na Sulf,Bicarb,Cl/Kcl 4,000 Ml Soln.Recon) 4,000 ml PO ONCE ONE Stop: 01/08/22 19:31 Senna (Sennosides 8.6 Mg Tablet) 17.2 mg PO BEDTIME PRN PRN Reason: Constipation Sodium Chloride (0.9 % Sodium Chloride Flush 3 Ml Syringe) 3 ml IVFLUSH QSHIFT [facility] Last Admin: 01/08/22 08:23 Dose: Not Given Documented by: OKSANA Non-Admin Reason: IV Running Tiotropium [place] (Tiotropium [place] 18 Mcg Cap.W.Dev) 1 puff INHALE RDAILY [facility] Last Admin: 01/08/22 07:59 Dose: Not Given Documented by: BREA Non-Admin Reason: Med Not Available Labs CBC & Chem 7: 01/08/22 07:34 01/08/22 07:34 Labs: Laboratory Results - last 24 hr 01/07/22 01/07/22 01/07/22 13:22 13:22 13:22 MCV MCH MCHC RDW Plt Count MPV Immature Gran % (Auto) Neut % (Auto) Lymph % (Auto) [place] % (Auto) Eos % (Auto) Baso % (Auto) Lymph # (Auto) [place] # (Auto) Eos # (Auto) Baso # (Auto) Abs Immat Gran (auto) Absolute Neuts (auto) Absolute Nucleated RBC Nucleated RBC % (auto) PT INR Anion Gap Estim Creat Clear Calc Estimated GFR POC Glucose Random Glucose Calcium Iron 44 TIBC 326 % Saturation 13 L Unsat Iron Binding 282 Ferritin 274 H Troponin I High Sens B-Natriuretic Peptide 128 H Vitamin B12 757 Folate > 20.0 Stool Occult Blood Blood Type Antibody Screen Crossmatch 01/07/22 01/07/22 01/07/22 15:38 15:38 20:32 MCV MCH MCHC RDW Plt Count MPV Immature Gran % (Auto) Neut % (Auto) Lymph % (Auto) [place] % (Auto) Eos % (Auto) Baso % (Auto) Lymph # (Auto) [place] # (Auto) Eos # (Auto) Baso # (Auto) Abs Immat Gran (auto) Absolute Neuts (auto) Absolute Nucleated RBC Nucleated RBC % (auto) PT INR Anion Gap 13 Estim Creat Clear Calc 69.5 Estimated GFR > 60 POC Glucose 39 L* Random Glucose 124 H Calcium 9.2 D Iron TIBC % Saturation Unsat Iron Binding Ferritin Troponin I High Sens 30.5 H B-Natriuretic Peptide Vitamin B12 Folate Stool Occult Blood Blood Type Antibody Screen Crossmatch 01/07/22 01/07/2222 20:46 20:46 21:26 MCV MCH MCHC RDW Plt Count MPV Immature Gran % (Auto) Neut % (Auto) Lymph % (Auto) [place] % (Auto) Eos % (Auto) Baso % (Auto) Lymph # (Auto) [place] # (Auto) Eos # (Auto) Baso # (Auto) Abs Immat Gran (auto) Absolute Neuts (auto) Absolute Nucleated RBC Nucleated RBC % (auto) PT 11.8 INR 1.0 Anion Gap Estim Creat Clear Calc Estimated GFR POC Glucose Random Glucose Calcium Iron TIBC % Saturation Unsat Iron Binding Ferritin Troponin I High Sens B-Natriuretic Peptide Vitamin B12 Folate Stool Occult Blood POSITIVE Blood Type B Positive Antibody Screen NEGATIVE Crossmatch See Detail 01/07/22 01/07/22 01/08/22 21:26 22:21 06:36 MCV MCH MCHC RDW Plt Count MPV Immature Gran % (Auto) Neut % (Auto) Lymph % (Auto) [place] % (Auto) Eos % (Auto) Baso % (Auto) Lymph # (Auto) [place] # (Auto) Eos # (Auto) Baso # (Auto) Abs Immat Gran (auto) Absolute Neuts (auto) Absolute Nucleated RBC Nucleated RBC % (auto) PT INR Anion Gap Estim Creat Clear Calc Estimated GFR POC Glucose 104 48 L* Random Glucose Calcium Iron TIBC % Saturation Unsat Iron Binding Ferritin Troponin I High Sens 29.1 H B-Natriuretic Peptide Vitamin B12 Folate Stool Occult Blood Blood Type Antibody Screen Crossmatch 01/08/22 01/08/22 01/08/22 07:00 07:34 07:34 MCV 93.3 MCH 29.5 MCHC 31.6 RDW 14.8 Plt Count 287 MPV 10.4 Immature Gran % (Auto) 0.7 H Neut % (Auto) 69.1 Lymph % (Auto) 14.4 L [place] % (Auto) 10.0 Eos % (Auto) 5.5 H Baso % (Auto) 0.3 Lymph # (Auto) 1.1 L [place] # (Auto) 0.8 Eos # (Auto) 0.4 Baso # (Auto) 0.0 Abs Immat Gran (auto) 0.05 H Absolute Neuts (auto) 5.2 Absolute Nucleated RBC 0.000 Nucleated RBC % (auto) 0.0 PT INR Anion Gap 12 Estim Creat Clear Calc 68.7 Estimated GFR > 60 POC Glucose 203 H Random Glucose 154 H Calcium 9.3 Iron TIBC % Saturation Unsat Iron Binding Ferritin Troponin I High Sens B-Natriuretic Peptide Vitamin B12 Folate Stool Occult Blood Blood Type Antibody Screen Crossmatch 01/08/22 01/08/22 01/08/22 09:46 11:49 13:05 MCV MCH MCHC RDW Plt Count MPV Immature Gran % (Auto) Neut % (Auto) Lymph % (Auto) [place] % (Auto) Eos % (Auto) Baso % (Auto) Lymph # (Auto) [place] # (Auto) Eos # (Auto) Baso # (Auto) Abs Immat Gran (auto) Absolute Neuts (auto) Absolute Nucleated RBC Nucleated RBC % (auto) PT INR Anion Gap Estim Creat Clear Calc Estimated GFR POC Glucose 148 H 82 120 H Random Glucose Calcium Iron TIBC % Saturation Unsat Iron Binding Ferritin Troponin I High Sens B-Natriuretic Peptide Vitamin B12 Folate Stool Occult Blood Blood Type Antibody Screen Crossmatch Assessment and Plan (1) Chest pain: Status: Acute (2) Symptomatic anemia: Status: Acute (3) GI bleed: Status: Acute (4) Hypoglycemia: Status: Acute Plan 56-year-old female with a past medical history of hypertension, hyperlipidemia, diabetes, CAD status post stent placement, anxiety, depression presented to the hospital with a chief complaint of chest pain/ Shortness of breath/ generalized weakness. Symptomatic anemia Patient hemoglobin dropped from baseline 11.4-7.0. Stool guaiac positive Patient being transfused 1 unit of blood with improvement of HP to 9 started on clear diet GI consult pending Hypoglycemia Likely in the setting of poor oral intake and oral diabetic regimen hypoglycemia protocol pending hypoglycemia panel. gentle D5 half NS , to discontinue once glucose stable to prevent over CHF Frequent POC glucose checks Chest pain, resolved EKG nonischemic. troponin: 30.5-29.1; cardiology input appreciated, hold aspirin, Plavix until cleared by GI and then restart aspirin only Continue home statin, metoprolol. Continue home Imdur Sublingual nitroglycerin p.r.n. Dyspnea on exertion likely from anemia of possible CHF Reports fatigue and leg swelling BNP 128 Chest x-ray showed pulmonary congestion pending echocardiogram History of diabetes: Held home Lantus and oral medications Insulin sliding scale. history of hypertension Hold home lisinopril for now continue Imdur and metoprolol. DVT prophylaxis: SCD boots the patient will need overnight hospital stay pending gastroenterology workup and possible endoscopy to treat the source of bleeding to prevent further decompensation into acute blood loss anemia. Quality Stroke Does the patient have a stroke diagnosis?: No VTE Prior VTE?: No VTE Risk Level:: Medical - moderate - high VTE Device Contraindication: N/A - Device Ordered VTE Drug Contraindication: Treatment Not Indicated
[2022-01-08 15:53] LABS: Glucose, Whole Blood 113 mg/dL (60-115)
[2022-01-08 16:45] LABS: Glucose, Whole Blood 137 mg/dL (60-115)
[2022-01-08] MEDS: bisacodyL 5 MG TABLET.DR 10 MG PO (17:01)
[2022-01-08] MEDS: Acetaminophen 325 MG TABLET 650 MG PO (17:03)
--- NOTE | 2022-01-08 18:39 | PC.NURSE ---
Pt A&Ox4. LCA, nSR on monitior. Medicated for headache during shift. Plan for NPO at midnight for endo and colonscopy tomorrow.
[2022-01-08 20:03] LABS: Glucose, Whole Blood 235 mg/dL (60-115)
--- NOTE | 2022-01-08 20:37 | PC.NURSE ---
Addendum entered by Estefanía Vences 01/09/22 06:53: Report given to CHAD Broussard Addendum entered by Estefanía Vences 01/08/22 21:39: pt is alert and oriented. resting in bed. no signs of acute distress notice. breathing equally unlabored. pt on continuos cardiac monitoring Original Note: report received from CHAD Medina
[2022-01-08] MEDS: Insulin Lispro 100 UNIT/ML 3 ML VIAL SUBCUT (20:41)
[2022-01-08] MEDS: OLANZapine 2.5 MG TABLET PO (20:41)
[2022-01-08] MEDS: Atorvastatin Calcium 80 MG TABLET PO (20:41)
[2022-01-08] MEDS: PEG 3350/Na Sulf,Bicarb,Cl/KCL 4,000 ML SOLN.RECON 4000 ML PO (20:42)
[2022-01-09] VITALS (8 sets, daily range): BP systolic 111–170; BP diastolic 76–91; PULSE 84–99; RESP 14–18; TEMP 36.2–37.1; O2SAT 95–98
[2022-01-09 05:00] LABS: Hematocrit 27.8 % (37.0-47.0); Hemoglobin 8.7 g/dl (12.0-16.0); Mean Corpuscular HGB Conc 31.3 g/dl (31.0-35.0); Mean Corpuscular Hemoglobin 29.2 pg (27.0-33.0); Mean Corpuscular Volume 93.3 fL (80.0-98.0); Mean Platelet Volume 10.7 fL (9.4-12.3); Platelet Count 270 X10*3/uL (160-400); Red Blood Count 2.98 X10*6/uL (4.20-5.50); Red Cell Distribution Width 14.8 % (11.0-16.0); White Blood Count 6.9 X10*3/uL (4.8-10.8)
[2022-01-09 05:15] LABS: Anion Gap 14 (12-20); Blood Urea Nitrogen 6 mg/dL (9-16); Calcium 9.1 mg/dL (8.4-10.2); Carbon Dioxide 25 mmol/L (22-29); Chloride 109 mmol/L (96-108); Creatinine Clr Calc Pharmacy 74.4; Estimated Glomerular Filt Rate > 60; Glucose Random 110 mg/dL (60-115); Potassium 4.3 mmol/L (3.3-5.1); Sodium 144 mmol/L (135-145)
[2022-01-09] MEDS: Pantoprazole Sodium 40 MG/10 ML VIAL IVPUSH (05:59)
[2022-01-09 07:40] LABS: Glucose, Whole Blood 108 mg/dL (60-115)
[2022-01-09] MEDS: Metoprolol Succinate ER 50 MG TAB.ER.24H PO (08:19)
[2022-01-09] MEDS: Isosorbide Mononitrate 30 MG TAB.ER.24H PO (08:19)
[2022-01-09] MEDS: Loratadine 10 MG TABLET PO (08:19)
[2022-01-09] MEDS: Dextrose 5 % and 0.45 % NaCl 1,000 ML 80 ML IVCONT (08:19)
--- NOTE | 2022-01-09 08:29 | PC.NURSE ---
pt l ac iv appears red and warm at site, pt sts it has been in for three days. lac iv removed. pt remains to have 22 in rfa patent and asymptomatic
[2022-01-09 12:14] LABS: Glucose, Whole Blood 237 mg/dL (60-115)
--- NOTE | 2022-01-09 12:53 | PC.NURSE ---
patient sleeping, wakes to verbal stimulus, pt currently has no c/o pain/discomfort, ivf running per order, call [place] within reach, will continue to monitor
--- NOTE | 2022-01-09 13:45 | PC.NURSE ---
insulin held as pt went to the OR, IVF paused as well
--- NOTE | 2022-01-09 14:08 | P.CONAN_ITS ---
HPI - Anesthesia Eval Consult details Narrative: 56 yo female patient for EGD, Colonoscopy [facility] Active Problems Active Problems: All Active Problems (Updated 01/08/22 @ 13:57 by Samson Mendez MD) Symptomatic anemia H/H 01/07/22 7.0/22.8 S/p 1u PRBC 02/07. H/H today 8.7/27.8 Chest pain (Acute) Anemia (Acute) GI bleed (Acute) Hypoglycemia history. Symptoms-cold, jittery Chronic idiopathic constipation (Acute) Colon cancer screening (Acute) CAD/PR S/p stents >5yrs. On plavix, baby ASA Past Medical History Medical History Anxiety Asthma CAD (coronary artery disease) Depression Diabetes History of heart attack HTN (hypertension) Hypercholesteremia Family History Family History Father Diabetes Hypercholesteremia HTN (hypertension) Mother HTN (hypertension) Diabetes Hypercholesteremia Brother HTN (hypertension) Diabetes Family history of problems with anesthesia: No Surgical History Surgical History Hx of colonoscopy (04/11/14) Stented coronary artery History of Problems with Anesthesia: No Social History Social History Household Members: None Alcohol intake: current Alcohol intake frequency: does not drink Patient Tobacco Use Status: Former Tobacco user Quit Date: 4years ago Use of substances other than those prescribed or required for medical reasons: No Are you DNR?: No Advance Directives: No Advance Directives Information Provided: No Meds Allergies Allergy/AdvReac Type Severity Reaction Status Date / Time shellfish derived Allergy Severe Swelling Verified 01/07/22 13:13 [SHELLFISH DERIVED] Penicillins Allergy Mild UNKNOWN - Verified 01/07/22 13:13 RXN CHILD naproxen [NAPROXEN] Allergy Unknown CAN'T TAKE Verified 01/07/22 13:13 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 seasonal allergies Allergy Mild Itchy Eyes Uncoded 08/21/20 10:01 Active Medications: Current Medications Acetaminophen (Acetaminophen 325 Mg Tablet) 650 mg PO Q6H PRN PRN Reason: Pain, Mild (Pain Scale 1-3) Last Admin: 01/08/22 17:03 Dose: 650 mg Documented by: Albuterol Sulfate (Albuterol Sulfate 90 Mcg 8 Gm Inhaler) 2 puff INHALE Q4H PRN PRN Reason: Wheezing Atorvastatin Calcium (Atorvastatin Calcium 80 Mg Tablet) 80 mg PO BEDTIME [facility] Last Admin: 01/08/22 20:41 Dose: 80 mg Documented by: Dextrose (Dextrose 50 % 25 Gm/50 Ml Syringe) 25 gm IVPUSH Q15M PRN; Protocol PRN Reason: per Hypoglycemia Standing Ord. Last Admin: 01/08/22 06:48 Dose: 25 gm Documented by: Glucose (Glucose Gel 15 Gm Gel..Gram.) 15 gm PO Q15M PRN; Protocol PRN Reason: per Hypoglycemia Standing Ord. Dextrose/Sodium Chloride (D51/2ns) 1,000 mls @ 80 mls/hr IVCONT .[id number] [facility] Last Infusion: 01/09/22 13:44 Dose: 0 mls/hr Documented by: Insulin Human Lispro (Insulin Lispro 100 Unit/Ml 3 Ml Vial) 0 unit SUBCUT QIDACHS [facility]; Protocol Last Admin: 01/09/22 13:44 Dose: Not Given Documented by: Isosorbide Mononitrate (Isosorbide Mononitrate 30 Mg Tab.Er.24h) 30 mg PO DAILY [facility]; Protocol Last Admin: 01/09/22 08:19 Dose: 30 mg Documented by: Loratadine (Loratadine 10 Mg Tablet) 10 mg PO DAILY [facility] Last Admin: 01/09/22 08:19 Dose: 10 mg Documented by: Melatonin (Melatonin 3 Mg Tablet) 6 mg PO BEDTIME PRN PRN Reason: Insomnia Last Admin: 01/07/22 23:27 Dose: 6 mg Documented by: Metoprolol Succinate (Metoprolol Succinate Er 50 Mg Tab.Er.24h) 50 mg PO DAILY [facility]; Protocol Last Admin: 01/09/22 08:19 Dose: 50 mg Documented by: Nitroglycerin (Nitroglycerin 0.4 Mg Tab.Subl) 0.4 mg SUBLINGUAL Q5MX3 PRN PRN Reason: Chest Pain Olanzapine (Olanzapine 2.5 Mg Tablet) 2.5 mg PO BEDTIME [facility] Last Admin: 01/08/22 20:41 Dose: 2.5 mg Documented by: Ondansetron HCl (Ondansetron Odt 8 Mg Tab.Rapdis) 8 mg TRANSLINGU Q8H PRN PRN Reason: Nausea Pantoprazole Sodium (Pantoprazole Sodium 40 Mg/10 Ml Vial) 40 mg IVPUSH DAILY@0630 [facility] Last Admin: 01/09/22 05:59 Dose: 40 mg Documented by: Senna (Sennosides 8.6 Mg Tablet) 17.2 mg PO BEDTIME PRN PRN Reason: Constipation Sodium Chloride (0.9 % Sodium Chloride Flush 3 Ml Syringe) 3 ml IVFLUSH QSHIFT [facility] Last Admin: 01/09/22 10:43 Dose: Not Given Documented by: Tiotropium Fortuna (Tiotropium Fortuna 18 Mcg Cap.W.Dev) 1 puff INHALE RDAILY [facility] Last Admin: 01/09/22 08:44 Dose: Not Given Documented by: Home Medications Medication Instructions Recorded Confirmed Last Taken Type aspirin 81 mg tablet 81 mg PO DAILY 08/13/20 01/07/22 01/07/22 History atorvastatin 80 mg tablet 80 mg PO QPM 08/13/20 01/07/22 01/06/22 History clopidogrel 75 mg tablet 75 mg PO DAILY 08/13/20 01/07/22 01/07/22 History insulin lispro 100 unit/mL See Rx Instructions .ROUTE .COMPLEX 08/13/20 01/07/22 01/07/22 History subcutaneous cartridge (Humalog U-100 Insulin) isosorbide mononitrate 30 mg 30 mg PO DAILY 08/13/20 01/07/22 01/07/22 History tablet,extended release 24 hr lisinopril 20 mg tablet 20 mg PO DAILY 08/13/20 01/07/22 01/07/22 History albuterol sulfate 90 mcg/actuation 2 puff INHALATION Q4-6H PRN 01/07/22 01/07/22 Unknown History aerosol inhaler (ProAir HFA) fluticasone 250 mcg-salmeterol 50 1 puff INHALATION BID 01/07/22 01/07/22 01/07/22 History mcg/dose blistr powdr for inhalation (Advair Diskus) insulin glargine 100 unit/mL (3 32 unit SUBCUT BEDTIME 01/07/22 01/07/22 01/06/22 History mL) subcutaneous pen (Lantus Solostar U-100 Insulin) loratadine 10 mg tablet 1 tab PO QAM 01/07/22 01/07/22 01/07/22 History melatonin 10 mg tablet 10 mg PO BEDTIME PRN 01/07/22 01/07/22 Unknown History metoprolol succinate 50 mg 1 tab PO QAM 01/07/22 01/07/22 01/07/22 History tablet,extended release 24 hr olanzapine 2.5 mg tablet 1 tab PO BEDTIME 01/07/22 01/07/22 01/06/22 History tiotropium bromide 18 mcg capsule 1 cap INHALATION DAILY 01/07/22 01/07/22 01/07/22 History with inhalation device (Spiriva with HandiHaler) Exam Exam Date and Time: January 09, 2022 1408 Height,Weight and Vital Signs: Height 5 ft 2 in Weight 63.2 kg Last Vital Signs Temp 97.9 F 01/09/22 13:56 Pulse 84 01/09/22 13:56 Resp 18 01/09/22 13:56 BP 139/76 01/09/22 13:56 Pulse Ox 98 01/09/22 13:56 Pertinent Lab Results Pertinent Lab Results: Laboratory Tests 01/07/22 01/07/22 01/07/22 13:22 13:22 13:22 WBC 4.2 L RBC 2.35 L D Hgb 7.0 L* D Hct 22.8 L D MCV 97.0 MCH 29.8 MCHC 30.7 L RDW 14.3 Plt Count 284 MPV 11.2 Immature Gran % (Auto) 0.7 H Neut % (Auto) 60.1 Lymph % (Auto) 25.7 Guthrie % (Auto) 10.6 Eos % (Auto) 2.4 Baso % (Auto) 0.5 Lymph # (Auto) 1.1 L G[place]rie # (Auto) 0.4 Eos # (Auto) 0.1 Baso # (Auto) 0.0 Abs Immat Gran (auto) 0.03 Absolute Neuts (auto) 2.5 Absolute Nucleated RBC 0.020 H Nucleated RBC % (auto) 0.5 H Smear Path Review SEE NOTE PT INR Sodium Potassium Chloride Carbon Dioxide Anion Gap BUN Creatinine Estim Creat Clear Calc Estimated GFR POC Glucose Random Glucose Calcium Iron TIBC % Saturation Unsat Iron Binding Ferritin Troponin I High Sens B-Natriuretic Peptide 128 H Vitamin B12 Folate Stool Occult Blood COVID-19 (KIKI) Negative COVID-19 Clin Com See Note Blood Type Antibody Screen Crossmatch 01/07/22 01/07/22 01/07/22 13:22 13:22 15:38 WBC RBC Hgb Hct MCV MCH MCHC RDW Plt Count MPV Immature Gran % (Auto) Neut % (Auto) Lymph % (Auto) Guthrie % (Auto) Eos % (Auto) Baso % (Auto) Lymph # (Auto) Guthrie # (Auto) Eos # (Auto) Baso # (Auto) Abs Immat Gran (auto) Absolute Neuts (auto) Absolute Nucleated RBC Nucleated RBC % (auto) Smear Path Review PT INR Sodium 145 Potassium 3.7 Chloride 112 H Carbon Dioxide 24 Anion Gap 13 BUN 10 Creatinine 0.77 Estim Creat Clear Calc 69.5 Estimated GFR > 60 POC Glucose Random Glucose 124 H Calcium 9.2 D Iron 44 TIBC 326 % Saturation 13 L Unsat Iron Binding 282 Ferritin 274 H Troponin I High Sens B-Natriuretic Peptide Vitamin B12 757 Folate > 20.0 Stool Occult Blood COVID-19 (KIKI) COVID-[employer] Com Blood Type Antibody Screen Crossmatch 01/07/22 01/07/22 01/07/22 15:38 20:32 20:46 WBC RBC Hgb Hct MCV MCH MCHC RDW Plt Count MPV Immature Gran % (Auto) Neut % (Auto) Lymph % (Auto) Guthrie % (Auto) Eos % (Auto) Baso % (Auto) Lymph # (Auto) Guthrie # (Auto) Eos # (Auto) Baso # (Auto) Abs Immat Gran (auto) Absolute Neuts (auto) Absolute Nucleated RBC Nucleated RBC % (auto) Smear Path Review PT 11.8 INR 1.0 Sodium Potassium Chloride Carbon Dioxide Anion Gap BUN Creatinine Estim Creat Clear Calc Estimated GFR POC Glucose 39 L* Random Glucose Calcium Iron TIBC % Saturation Unsat Iron Binding Ferritin Troponin I High Sens 30.5 H B-Natriuretic Peptide Vitamin B12 Folate Stool Occult Blood COVID-19 (KIKI) [facility]-[employer] Com Blood Type Antibody Screen Crossmatch 01/07/22 01/07/22 01/07/22 20:46 21:26 21:26 WBC RBC Hgb Hct MCV MCH MCHC RDW Plt Count MPV Immature Gran % (Auto) Neut % (Auto) Lymph % (Auto) Guthrie % (Auto) Eos % (Auto) Baso % (Auto) Lymph # (Auto) Guthrie # (Auto) Eos # (Auto) Baso # (Auto) Abs Immat Gran (auto) Absolute Neuts (auto) Absolute Nucleated RBC Nucleated RBC % (auto) Smear Path Review PT INR Sodium Potassium Chloride Carbon Dioxide Anion Gap BUN Creatinine Estim Creat Clear Calc Estimated GFR POC Glucose 104 Random Glucose Calcium Iron TIBC % Saturation Unsat Iron Binding Ferritin Troponin I High Sens B-Natriuretic Peptide Vitamin B12 Folate Stool Occult Blood POSITIVE COVID-19 (KIKI) [facility] [place] [address] Blood Type B Positive Antibody Screen NEGATIVE Crossmatch See Detail 01/07/22 01/08/22 01/08/22 22:21 06:36 07:00 WBC RBC Hgb Hct MCV MCH MCHC RDW Plt Count MPV Immature Gran % (Auto) Neut % (Auto) Lymph % (Auto) Guthrie % (Auto) Eos % (Auto) Baso % (Auto) Lymph # (Auto) Guthrie # (Auto) Eos # (Auto) Baso # (Auto) Abs Immat Gran (auto) Absolute Neuts (auto) Absolute Nucleated RBC Nucleated RBC % (auto) Smear Path Review PT INR Sodium Potassium Chloride Carbon Dioxide Anion Gap BUN Creatinine Estim Creat Clear Calc Estimated GFR POC Glucose 48 L* 203 H Random Glucose Calcium Iron TIBC % Saturation Unsat Iron Binding Ferritin Troponin I High Sens 29.1 H B-Natriuretic Peptide Vitamin B12 Folate Stool Occult Blood COVID-19 (KIKI) [facility]-[address] [place] [address] Blood Type Antibody Screen Crossmatch 01/08/22 01/08/22 01/08/22 07:34 07:34 09:46 WBC 7.6 RBC 3.12 L D Hgb 9.2 L D Hct 29.1 L D MCV 93.3 MCH 29.5 MCHC 31.6 RDW 14.8 Plt Count 287 MPV 10.4 Immature Gran % (Auto) 0.7 H Neut % (Auto) 69.1 Lymph % (Auto) 14.4 L Guthrie % (Auto) 10.0 Eos % (Auto) 5.5 H Baso % (Auto) 0.3 Lymph # (Auto) 1.1 L G[place]rie # (Auto) 0.8 Eos # (Auto) 0.4 Baso # (Auto) 0.0 Abs Immat Gran (auto) 0.05 H Absolute Neuts (auto) 5.2 Absolute Nucleated RBC 0.000 Nucleated RBC % (auto) 0.0 Smear Path Review PT INR Sodium 141 Potassium 3.7 Chloride 107 Carbon Dioxide 26 Anion Gap 12 BUN 9 Creatinine 0.78 Estim Creat Clear Calc 68.7 Estimated GFR > 60 POC Glucose 148 H Random Glucose 154 H Calcium 9.3 Iron TIBC % Saturation Unsat Iron Binding Ferritin Troponin I High Sens B-Natriuretic Peptide Vitamin B12 Folate Stool Occult Blood COVID-19 (KIKI) COVID-19 [facility] Blood Type Antibody Screen Crossmatch 01/08/22 01/08/22 01/08/22 11:49 13:05 15:47 WBC RBC Hgb Hct MCV MCH MCHC RDW Plt Count MPV Immature Gran % (Auto) Neut % (Auto) Lymph % (Auto) Guthrie % (Auto) Eos % (Auto) Baso % (Auto) Lymph # (Auto) Guthrie # (Auto) Eos # (Auto) Baso # (Auto) Abs Immat Gran (auto) Absolute Neuts (auto) Absolute Nucleated RBC Nucleated RBC % (auto) Smear Path Review PT INR Sodium Potassium Chloride Carbon Dioxide Anion Gap BUN Creatinine Estim Creat Clear Calc Estimated GFR POC Glucose 82 120 H 113 Random Glucose Calcium Iron TIBC % Saturation Unsat Iron Binding Ferritin Troponin I High Sens B-Natriuretic Peptide Vitamin B12 Folate Stool Occult Blood COVID-19 (KIKI) COVID-19 [facility] Blood Type Antibody Screen Crossmatch 01/08/22 01/08/22 01/09/22 16:41 19:49 04:23 WBC 6.9 RBC 2.98 L Hgb 8.7 L Hct 27.8 L MCV 93.3 MCH 29.2 MCHC 31.3 RDW 14.8 Plt Count 270 MPV 10.7 Immature Gran % (Auto) Neut % (Auto) Lymph % (Auto) Guthrie % (Auto) Eos % (Auto) Baso % (Auto) Lymph # (Auto) Guthrie # (Auto) Eos # (Auto) Baso # (Auto) Abs Immat Gran (auto) Absolute Neuts (auto) Absolute Nucleated RBC 0.000 Nucleated RBC % (auto) 0.0 Smear Path Review PT INR Sodium Potassium Chloride Carbon Dioxide Anion Gap BUN Creatinine Estim Creat Clear Calc Estimated GFR POC Glucose 137 H 235 H Random Glucose Calcium Iron TIBC % Saturation Unsat Iron Binding Ferritin Troponin I High Sens B-Natriuretic Peptide Vitamin B12 Folate Stool Occult Blood COVID-19 (KIKI) COVID-19 [facility] Blood Type Antibody Screen Crossmatch 01/09/22 01/09/22 01/09/22 04:23 07:26 11:57 WBC RBC Hgb Hct MCV MCH MCHC RDW Plt Count MPV Immature Gran % (Auto) Neut % (Auto) Lymph % (Auto) Guthrie % (Auto) Eos % (Auto) Baso % (Auto) Lymph # (Auto) Guthrie # (Auto) Eos # (Auto) Baso # (Auto) Abs Immat Gran (auto) Absolute Neuts (auto) Absolute Nucleated RBC Nucleated RBC % (auto) Smear Path Review PT INR Sodium 144 Potassium 4.3 Chloride 109 H Carbon Dioxide 25 Anion Gap 14 BUN 6 L Creatinine 0.72 Estim Creat Clear Calc 74.4 Estimated GFR > 60 POC Glucose 108 237 H Random Glucose 110 Calcium 9.1 Iron TIBC % Saturation Unsat Iron Binding Ferritin Troponin I High Sens B-Natriuretic Peptide Vitamin B12 Folate Stool Occult Blood COVID-19 (KIKI) COVID-19 [facility] Blood Type Antibody Screen Crossmatch Narrative Narrative: Date of Service: 01/07/22 Procedure(s): ECG 12 lead EKG Test Reason : CHEST PAIN Vent. Rate : 099 BPM ? ? Atrial Rate : 099 BPM ?? P-R Int : 128 ms? QRS Dur : 082 ms ? ? QT Int : 354 ms ? ? ? P-R-T Axes : 053 005 014 degrees ?? QTc Int : 454 ms ? Normal sinus rhythm Nonspecific T wave abnormality Abnormal ECG When compared with ECG of 30-JUN-2021 02:37, Premature ventricular complexes are no longer Present Nonspecific T wave abnormality now evident in Anterolateral leads Procedure Date:? 01/08/2022 Procedure Type:? Transthoracic Echocardiogram Symptoms:? SOB; ?CHF ECG Rhythm:? ? ? Sinus ?? ? Conclusions: - Normal left ventricular size and systolic function.? - The apex segment is hypokinetic. ? Findings Procedure Information Contrast agent, definity, is being given per protocol without apparent complications. Left Ventricle Normal left ventricular size and systolic function. There is mildly increased left ventricular wall thickness.? There is evidence of regional wall motion abnormalities.? Diastolic function is normal for age. Wall Motion Rest Echo Findings The apex segment is hypokinetic. Right Ventricle Normal right ventricular cavity size and systolic function. Atria The left atrium is mildly dilated. Aortic Valve Normal aortic valve structure and function.? There is no aortic valve stenosis.? There is no aortic valve regurgitation. Mitral Valve Normal mitral valve structure and function.? There is trace mitral valve regurgitation.? There is no mitral valve stenosis. Pulmonic Valve Normal pulmonic valve structure and function.? There is trace pulmonic valve regurgitation. Tricuspid Valve Normal tricuspid valve structure and function.? There is trace tricuspid valve regurgitation.? Normal right atrial pressure.? There is no evidence of pulmonary hypertension. Great Vessels All visible segments of the aorta are normal in size.? The visualized portions of the pulmonary artery and branches are normal. Venous The inferior vena cava is normal in size and collapses greater than 50% with inspiration. Pericardium/Pleural There is no evidence of pericardial effusion. Airway Mallampati Class: II TM Dist: >3cm Neck ROM: Full Partial: Upper Loose/Missing/Broken Teeth: Yes (Many missing bottom) Heart: RRR ?murmur Lungs: CTAB Assessment and Plan Assessment Anesthesia Assessment: Anesthesia Plan Discussed and Chart Reviewed Final Anesthetic Review Family History of Problems with Anesthesia: No History of Problems with Anesthesia: No NPO: Yes ASA Class: III Final Preanesthetic Review: No Changes in Pt Med Stat, Meds/Allgs Chart Reviewed, Consent Obtained/Reviewed and Anes Risks/Benef Reviewed Patient Risk: Intermediate Procedure Risk: Low Assessment/Block/Sedation in SS: Assess/Block/Sedation- Anesthetic Plan Anesthetic Plan: MAC: Disposition: Standard PACU and Inp. Admit - Standard Bed
--- NOTE | 2022-01-09 14:25 | MHC.CM.PN ---
Attempted to meet with patient in regards of discharge planning. Patient currently in endoscopy. Will attempt to meet again. Continue to monitor for d/c needs.
--- NOTE | 2022-01-09 15:46 | P.HPSUR_ITS ---
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 No changes have occurred unless specified.
--- NOTE | 2022-01-09 15:47 | P.BOP_ITS ---
Brief Operative Note Date of Service: 01/09/22 Pre-op diagnosis: anemia Post-op diagnosis: same Procedure: see op note Surgeon: Michael Mcqueen MD Anesthesia: MAC Was an Arc And Gas Welder used for this Procedure?: No Estimated blood loss (mL): 0 Condition: stable Disposition: PACU
--- NOTE | 2022-01-09 15:47 | PM.OP ---
Brief Operative Note Date of Service: 01/09/22 Pre-op diagnosis: anemia Post-op diagnosis: same Procedure: see op note Surgeon: iMchael Mcqueen MD Anesthesia: MAC Was an Mechanical Engineering Officer used for this Procedure?: No Estimated blood loss (mL): 0 Condition: stable Disposition: PACU
--- NOTE | 2022-01-09 15:47 | W.PM.OPN ---
Operative Note Operative Note Date of Service: 01/09/22 Narrative: Operative Information Procedure Description: EGD (colonoscopy was not done due to brown stool noted at anal area) Indication: anemia Anesthesia: MAC FLEXIBLE TRANSORAL UPPER GASTROINTESTINAL ENDOSCOPY PROCEDURE NOTE UPPER ENDOSCOPY Consent: Indications for the procedure and potential complications of bleeding, perforation, reaction to medications and missed diagnosis were discussed with the patient and informed consent was obtained. Instrument: Olympus GIF H 190 J mid size upper endoscope Monitoring: Vital signs and clinical assessment, continuous EKG monitoring, Pulse oximetry, Carbon Dioxide monitoring and blood pressure monitoring were done throughout the procedure. Procedure: The patient was placed in the left lateral decubitis position and pre-procedure medications were administered and a bite block was placed. The endoscope was inserted into the mouth and advanced under direct vision to the third part of duodenum. A careful inspection was made as the upper endoscope was withdrawn including a retroflexed examination of the proximal stomach; Findings and interventions are described below. Findings: Larynx:normal Esophagus: GE junction at 34 cm, diaphragm hiatus at 36 cm, consistent with 2 cm sliding hiatal hernia, non obstructive schatzki ring noted. Stomach: Superficial erosions and ulcerations noted at antrum. Biopsies were obtained. Grade 2 flap valve on retroflexed examination of the cardia. Duodenum: Proximal bulb, superior wall with shallow ulcer about 12 mm in length - Coy grade III Intervention: Biopsies as noted above Impression and Post Procedure Diagnosis: Endoscopy Findings: gastritis with superficial ulcerations and erosions duodenal ulcer hiatal hernia schatzki ring Plan: Await Pathology results If H pylori pos treat ok to go home on high dose PPI e.g pantoprazole 40 mg bid for 3 months then titrate down reschedule for colonoscopy at future date Above findings were reviewed with the patient and relevant handouts were provided if indicated.
--- NOTE | 2022-01-09 16:01 | HO.PM.IMPN ---
Subjective Subjective Date of Service: 01/09/22 Interval History: seen and examined this morning follow up for anemia, hypoglycemia no further episodes of hypoglycemia Review of Systems Review of Systems: Yes all other systems are reviewed and are negative Constitutional Constitutional: Denies chills and Denies fever(s) Cardiovascular Cardiovascular: Denies chest pain, Denies palpitations and Denies dyspnea Respiratory Respiratory: Denies cough and Denies dyspnea Gastrointestinal Gastrointestinal: Denies abdominal pain, Denies diarrhea, Denies nausea and Denies vomiting Endocrine Endocrine: Denies palpitations Physical Exam Vital Signs: Vital Signs: Last Vital Signs Temp 97.9 F 01/09/22 13:56 Pulse 84 01/09/22 13:56 Resp 18 01/09/22 13:56 BP 139/76 01/09/22 13:56 Pulse Ox 98 01/09/22 13:56 BMI result Body Mass Index 25.4 Const: General: cooperative, comfortable, no acute distress, alert and awake Nutritional Appearance: average body habitus Resp: Effort & Inspection: normal respiratory effort and able to speak in complete sentences Cardio: Rate: regular rate Heart sounds: S1 normal heart sound present and S2 normal heart sound present GI: Inspection: No distended Palpation (GI): Soft to palpation and nontender Extrem: Other: moving all 4 extremities spontaneously General: Yes no pedal edema Objective Data Active Medications Acetaminophen (Acetaminophen 325 Mg Tablet) 650 mg PO Q6H PRN PRN Reason: Pain, Mild (Pain Scale 1-3) Last Admin: 01/08/22 17:03 Dose: 650 mg Documented by: OKSANA Albuterol Sulfate (Albuterol Sulfate 90 Mcg 8 Gm Inhaler) 2 puff INHALE Q4H PRN PRN Reason: Wheezing Atorvastatin Calcium (Atorvastatin Calcium 80 Mg Tablet) 80 mg PO BEDTIME [facility] Last Admin: 01/08/22 20:41 Dose: 80 mg Documented by: LEONARDO Dextrose (Dextrose 50 % 25 Gm/50 Ml Syringe) 25 gm IVPUSH Q15M PRN; Protocol PRN Reason: per Hypoglycemia Standing Ord. Last Admin: 01/08/22 06:48 Dose: 25 gm Documented by: LEONARDO Glucose (Glucose Gel 15 Gm Gel..Gram.) 15 gm PO Q15M PRN; Protocol PRN Reason: per Hypoglycemia Standing Ord. Dextrose/Sodium Chloride (D51/2ns) 1,000 mls @ 80 mls/hr IVCONT .[id number] [facility] Last Infusion: 01/09/22 13:44 Dose: 0 mls/hr Documented by: VIVEK Lactated Ringer's (Lr) 1,000 mls @ 100 mls/hr IVCONT .Q10H [facility] Insulin Human Lispro (Insulin Lispro 100 Unit/Ml 3 Ml Vial) 0 unit SUBCUT QIDACHS [facility]; Protocol Last Admin: 01/09/22 13:44 Dose: Not Given Documented by: VIVEK Non-Admin Reason: See Note Comments: pt to the OR Isosorbide Mononitrate (Isosorbide Mononitrate 30 Mg Tab.Er.24h) 30 mg PO DAILY [facility]; Protocol Last Admin: 01/09/22 08:19 Dose: 30 mg Documented by: RUFINA Loratadine (Loratadine 10 Mg Tablet) 10 mg PO DAILY [facility] Last Admin: 01/09/22 08:19 Dose: 10 mg Documented by: RUFINA Melatonin (Melatonin 3 Mg Tablet) 6 mg PO BEDTIME PRN PRN Reason: Insomnia Last Admin: 01/07/22 23:27 Dose: 6 mg Documented by: MOHINDER Metoprolol Succinate (Metoprolol Succinate Er 50 Mg Tab.Er.24h) 50 mg PO DAILY [facility]; Protocol Last Admin: 01/09/22 08:19 Dose: 50 mg Documented by: RUFINA Nitroglycerin (Nitroglycerin 0.4 Mg Tab.Subl) 0.4 mg SUBLINGUAL Q5MX3 PRN PRN Reason: Chest Pain Olanzapine (Olanzapine 2.5 Mg Tablet) 2.5 mg PO BEDTIME [facility] Last Admin: 01/08/22 20:41 Dose: 2.5 mg Documented by: LEONARDO Ondansetron HCl (Ondansetron Odt 8 Mg Tab.Rapdis) 8 mg TRANSLINGU Q8H PRN PRN Reason: Nausea Ondansetron HCl (Ondansetron Hcl 4 Mg/2 Ml Vial) 4 mg IVPUSH ONCE PRN PRN Reason: Nausea and Vomiting Pantoprazole Sodium (Pantoprazole Sodium 40 Mg/10 Ml Vial) 40 mg IVPUSH DAILY@0630 [facility] Last Admin: 01/09/22 05:59 Dose: 40 mg Documented by: N-ANICL Senna (Sennosides 8.6 Mg Tablet) 17.2 mg PO BEDTIME PRN PRN Reason: Constipation Sodium Chloride (0.9 % Sodium Chloride Flush 3 Ml Syringe) 3 ml IVFLUSH QSHIFT [facility] Last Admin: 01/09/22 10:43 Dose: Not Given Documented by: RUFINA Non-Admin Reason: Med Not Available Tiotropium Goehner (Tiotropium Goehner 18 Mcg Cap.W.Dev) 1 puff INHALE RDAILY [facility] Last Admin: 01/09/22 08:44 Dose: Not Given Documented by: FLAVIO Non-Admin Reason: Med Not Available Labs CBC & Chem 7: 01/09/22 04:23 01/09/22 04:23 Labs: Laboratory Results - last 24 hr 01/08/22 01/08/22 01/09/22 16:41 19:49 04:23 MCV 93.3 MCH 29.2 MCHC 31.3 RDW 14.8 Plt Count 270 MPV 10.7 Absolute Nucleated RBC 0.000 Nucleated RBC % (auto) 0.0 Anion Gap Estim Creat Clear Calc Estimated GFR POC Glucose 137 H 235 H Random Glucose Calcium 01/09/22 01/09/22 01/09/22 04:23 07:26 11:57 MCV MCH MCHC RDW Plt Count MPV Absolute Nucleated RBC Nucleated RBC % (auto) Anion Gap 14 Estim Creat Clear Calc 74.4 Estimated GFR > 60 POC Glucose 108 237 H Random Glucose 110 Calcium 9.1 Assessment and Plan (1) Symptomatic anemia: Status: Acute (2) Hypoglycemia: Status: Acute Plan 56-year-old female with a past medical history of hypertension, hyperlipidemia, diabetes, CAD status post stent placement, anxiety, depression presented to the hospital with a chief complaint of chest pain/ Shortness of breath/ generalized weakness. Symptomatic anemia Patient hemoglobin dropped from baseline 11.4-7.0. Stool guaiac positive Patient being transfused 1 unit of blood with improvement of HP to 9 seen by GI, plan for egd/colonoscopy today Hypoglycemia Likely in the setting of poor oral intake and oral diabetic regimen hypoglycemia protocol pending hypoglycemia panel. gentle D5 half NS , to discontinue once glucose stable to prevent over CHF Frequent POC glucose checks Chest pain, resolved EKG nonischemic. troponin: 30.5-29.1 h/o CAD, anterior STEMI in 2014 s/p PCI with stent placement seen by cardiology input appreciated- symptoms from supply mismatch due to anemia -recommend to hold aspirin, Plavix until cleared by GI and then restart aspirin only Continue home statin, metoprolol. Continue home Imdur Sublingual nitroglycerin p.r.n. Dyspnea on exertion likely from anemia less likely CHF Reports fatigue and leg swelling BNP 128 Chest x-ray showed pulmonary congestion echocardiogram showing preserved EF, no diastolic dysfunction; regional WMA chronic from previous [place] History of diabetes: Held home Lantus and oral medications Insulin sliding scale. history of hypertension Hold home lisinopril for now continue Imdur and metoprolol. DVT prophylaxis: LENA sanchez attending - Dr. Ware the patient will need overnight hospital stay pending gastroenterology workup and possible endoscopy to treat the source of bleeding to prevent further decompensation into acute blood loss anemia. Quality Stroke Does the patient have a stroke diagnosis?: No VTE Prior VTE?: No VTE Risk Level:: Medical - moderate - high VTE Device Contraindication: N/A - Device Ordered VTE Drug Contraindication: Treatment Not Indicated
[2022-01-09 18:11] LABS: Glucose, Whole Blood 128 mg/dL (60-115)
[2022-01-09 20:43] LABS: Glucose, Whole Blood 220 mg/dL (60-115)
[2022-01-09] MEDS: Insulin Lispro 100 UNIT/ML 3 ML VIAL SUBCUT (21:33)
[2022-01-09] MEDS: Acetaminophen 325 MG TABLET 650 MG PO (21:34)
[2022-01-09] MEDS: OLANZapine 2.5 MG TABLET PO (21:34)
[2022-01-09] MEDS: Atorvastatin Calcium 80 MG TABLET PO (21:34)
[2022-01-09] MEDS: Melatonin 3 MG TABLET 6 MG PO (21:35)
[2022-01-10] VITALS: BP 146/83; PULSE 82; RESP 16; TEMP 36.7; O2SAT 100
--- NOTE | 2022-01-10 00:57 | PC.NURSE ---
Called to floor to give report, no answer. Will call back.
[2022-01-10 01:55] VITALS: BP 145/78; PULSE 92; RESP 20; TEMP 36.4; O2SAT 96
[2022-01-10 02:02] LABS: Glucose, Whole Blood 215 mg/dL (60-115)
[2022-01-10 04:00] VITALS: BP 130/85; PULSE 86; PULSE 97; RESP 17; TEMP 36.6; TEMP 36.7; O2SAT 97
--- NOTE | 2022-01-10 06:52 | HO.POSTANES ---
Post Anesthesia Evaluation Post Anesthesia Evaluation Vital Signs: Vital Signs Temp Pulse Resp BP Pulse Ox 01/10/22 04:00 97.8 F 86 17 130/85 97 01/10/22 01:55 97.5 F 92 20 145/78 H 96 01/10/22 00:00 98.1 F 82 16 146/83 H 100 Anesthesia: Monitored Mental Status: Awake Pain Control: Satisfactory Nausea/Vomiting: None Hydration: Adequate Anesthesia-Related Issues: No Anes. Related Issues
[2022-01-10 06:58] LABS: Hematocrit 26.7 % (37.0-47.0); Hemoglobin 8.5 g/dl (12.0-16.0); Mean Corpuscular HGB Conc 31.8 g/dl (31.0-35.0); Mean Corpuscular Hemoglobin 29.5 pg (27.0-33.0); Mean Corpuscular Volume 92.7 fL (80.0-98.0); Mean Platelet Volume 10.9 fL (9.4-12.3); Platelet Count 273 X10*3/uL (160-400); Red Blood Count 2.88 X10*6/uL (4.20-5.50); Red Cell Distribution Width 14.5 % (11.0-16.0); White Blood Count 5.8 X10*3/uL (4.8-10.8)
[2022-01-10 07:47] VITALS: BP 143/92; PULSE 83; RESP 18; TEMP 36.5; O2SAT 96
[2022-01-10 07:54] LABS: Glucose, Whole Blood 176 mg/dL (60-115)
[2022-01-10 08:00] VITALS: BP 148/78; PULSE 81; RESP 19; TEMP 36.4; O2SAT 98
[2022-01-10] MEDS: Isosorbide Mononitrate 30 MG TAB.ER.24H PO (08:34)
[2022-01-10] MEDS: Loratadine 10 MG TABLET PO (08:34)
[2022-01-10] MEDS: Metoprolol Succinate ER 50 MG TAB.ER.24H PO (08:34)
[2022-01-10] MEDS: Insulin Lispro 100 UNIT/ML 3 ML VIAL SUBCUT (08:35)
--- NOTE | 2022-01-10 08:42 | MHC.CM.PN ---
CM met with Patient at bedside with the assist of a [facility] [employer]. Patient lives alone in her apartment and she receives 3 hours/day [facility] [employer] services. Home/resume said services is the goal and CM has initiated and will follow for dc planning. PCP is DR. Brittnee Hanna and Patient has received Moderna/Covid vax X2.
--- NOTE | 2022-01-10 09:34 | PM.DS ---
DS: Providers Provider Date of Service: 01/10/22 Date of admission: 01/07/22 22:37 Date of discharge: 01/10/22 Primary care physician: Brittnee Hanna MD Consults: 01/07/22 22:39 Consult to Gastroenterology Routine Consulting Provider: Michael Mcqueen Reason for consultation: black tool/anemia 01/07/22 22:46 Consult to Cardiology Routine Consulting Provider: Ermisa Taylor Reason for consultation: chest pain Attending physician on discharge: Abisai Ware Discharging clinician: Brittnee Amanda DS: Diagnosis Discharge Diagnosis (1) Symptomatic anemia: Status: Acute (2) Hypoglycemia: Status: Acute DS: Summary Hospital Course Hospital Course: From H&P on day of admission 56-year-old female with a past medical history of hypertension, hyperlipidemia, diabetes, CAD status post stent placement, anxiety, depression presented to the hospital with a chief complaint of chest pain.? Patient reports that over the past 3-4 days she has been having generalized weakness, body aches, not feeling well.? Reports that she has been having shortness of breath which has been gradually worsening.? Also mentions dyspnea on exertion.? Reports she had intermittent episodes of chest pain, located in the center of the chest, nonradiating, no associated nausea vomiting or diaphoresis.? Today she had increased chest pain; hence presented to the ER for further evaluation.? Patient also reported swelling in the legs.? Denies any numbness tingling or focal weakness.? Denies any fever chills cough or sputum production.? ?patient reports that she has significantly decreased energy levels and feels like fish with no? water. Review of all other systems is negative except mentioned above ER course: Per ER team patient EKG was nonischemic; troponin was indeterminate; on labs noted to have drop in hemoglobin from 1.4-7.0.? Patient stool guaiac was positive.? Being transfused 1 unit of blood.? Admitted to the hospital for further management. Discharge diagnoses: Symptomatic anemia/acute blood loss anemia secondary to GI bleeding Gastritis Duodenal ulcer Schatzki's ring Chest pain Hospital course by problem: Symptomatic anemia Patient hemoglobin dropped from baseline 11.4-7.0. Stool guaiac was positive. She was transfused 1 unit of blood with improvement of HP to 9. Her aspirin and plavix were plaed on hold. She was seen by GI, with plan for colonoscopy and endoscopy. She underwent endoscopy on January 09 but was unable to have colonoscopy due to poor prep. Endoscopy revealed evidence of gastritis, duodenal ulcer and Schatzki ring. She will be discharged on pantoprazole 40 mg b.i.d. for 3 months and should call the Gastroenterology office to schedule an outpatient colonoscopy. Her Plavix has been discontinued and she can continue taking aspirin daily. Hypoglycemia. Likely in the setting of poor oral intake. She was not noted to be on any oral medications. Her home medications were placed on hold. She did not receive any Lantus during hospitalization she was covered with an insulin sliding scale. She had no further episodes of hypoglycemia. her dose of lantus will be decreased to 10 units and she should use a sliding scale rather than scheduled pre-meal insulin for now. she is instructed to check blood sugars and insulin sliding scale was provided. she should follow up with PCP to titrate insulin as needed. Chest pain, resolved. EKG nonischemic.? troponin:? 30.5-29.1. h/o CAD, anterior STEMI in 2013 s/p PCI with stent placement. She was seen by cardiology and symptoms thought to be related to supply mismatch due to anemia -recommend to hold plavix and resume aspirin on discharge. The remained of her medications were continued. Dyspnea on exertion. likely from anemia. BNP 128. echocardiogram showing preserved EF, no diastolic dysfunction; regional WMA chronic were noted but related to previous [place]. There was no evidence of CHF and her dyspnea improved with transfusion. Time Spent with Patient Time attestation: Total time spent providing and/or coordinating discharge services: Discharge coordination time: Greater than 30 minutes Quality: Safe Use of Opioids Does Pt have an Active Cancer Diagnosis on the Problem List?: No Quality: Stroke Does the patient have a stroke diagnosis?: No Physical Exam Vital Signs: Vital Signs: Last Vital Signs Temp 97.6 F 01/10/22 08:00 Pulse 81 01/10/22 08:00 Resp 19 01/10/22 08:00 BP 148/78 H 01/10/22 08:00 Pulse Ox 98 01/10/22 08:00 BMI result Body Mass Index 25.4 DS: Data Data Completed and Pending Pending studies at discharge: Pending at discharge 01/09/22 16:07 Surgical [PTH] Routine Labs on day of discharge: Laboratory Results - last 24 hr 01/09/22 01/09/22 01/09/22 11:57 18:00 20:39 WBC RBC Hgb Hct MCV MCH MCHC RDW Plt Count MPV Absolute Nucleated RBC Nucleated RBC % (auto) POC Glucose 237 H 128 H 220 H 01/10/22 01/10/22 01/10/22 01:58 06:06 07:51 WBC 5.8 RBC 2.88 L Hgb 8.5 L Hct 26.7 L MCV 92.7 MCH 29.5 MCHC 31.8 RDW 14.5 Plt Count 273 MPV 10.9 Absolute Nucleated RBC 0.000 Nucleated RBC % (auto) 0.0 POC Glucose 215 H 176 H Discharge Plan Discharge Patient Disposition: Home, Self-Care Discharge Diagnosis: GI bleeding symptomatic anemia Referrals: Brittnee Hanna MD [Primary Care Provider] - 1 Week Michael Mcqueen MD [Physician] - 2 Weeks Discharge Medications: New pantoprazole 40 mg tablet,delayed release (DR/EC) 40 mg PO BID 30 Days Qty: 60 0RF Continued atorvastatin 80 mg Tablet 80 mg PO QPM 0RF lisinopril 20 mg Tablet 20 mg PO DAILY 0RF isosorbide mononitrate 30 mg Tablet Extended Release 24 Hr 30 mg PO DAILY 0RF aspirin 81 mg Tablet 81 mg PO DAILY 0RF fluticasone propion-salmeterol [Advair Diskus] 250-50 mcg/dose blister with device 1 puff inhalation BID 0RF olanzapine 2.5 mg tablet 1 tab PO BEDTIME 0RF loratadine 10 mg tablet 1 tab PO QAM 0RF Spiriva with HandiHaler 18 mcg capsule, w/inhalation device 1 cap inhalation DAILY 0RF metoprolol succinate 50 mg tablet extended release 24 hr 1 tab PO QAM 0RF albuterol sulfate [ProAir HFA] 90 mcg/actuation HFA aerosol inhaler 2 puff inhalation Q4-6H PRN (Reason: Wheezing) 0RF melatonin 10 mg Tablet 10 mg PO BEDTIME PRN (Reason: Insomnia) 0RF Changed Lantus Solostar U-100 Insulin 100 unit/mL (3 mL) insulin pen 10 unit subcut BEDTIME Qty: 0 0RF Discontinued clopidogrel 75 mg Tablet 75 mg PO DAILY 0RF Humalog U-100 Insulin 100 unit/mL Cartridge See Rx Instructions .ROUTE .COMPLEX 0RF Rx Instructions: 5 units with breakfast, 8 units with lunch and dinner Discharge Orders: Discharge Order (Routine); Ordered 01/10/22 Ordered By: Brittnee Amanda Activity on Discharge: As tolerated Stand Alone Forms: Patient Portal Discharge page Care Plan Goals: see below Health Concerns: GI bleeding/symptomatic anemia gastritis duodenal ulcer Plan of Treatment: Unable to complete colonoscopy - call GI office to schedule as outpatient Stop taking plavix and call to schedule follow up with cardiology Can continue taking aspirin as prescribed. do not take other NSAIDs (motrin, ibuprofen, etc) start taking pantoprazole as prescribed monitor for signs of bleeding your blood sugar was low, decrease your lantus to 10U for now do not take scheduled pre-meal insulin, check your blood sugars before meals and at bedtime and instead use a sliding scale for humalog dosing instead follow up with your PCP to up-titrate your insulin as needed Insulin sliding scale: under 150 0 units 151-200 2 units 201 -250 4 units 251-300 6 units 301-350 8 units over 350 10 units call PCP if sugar over 350 Assessment: see discharge summary Patient Instructions: Pantoprazole (By mouth) Discharge Date/Time: 01/10/22 13:29
--- NOTE | 2022-01-10 11:24 | MHC.CM.PN ---
Female 56 DX Chest pain She is discharged today to home. [facility] will resume [employer] services. Transportation will be provided by the Pt's son.
[2022-01-22 21:32] LABS: Chlorpropamide None Detected; Glimepiride None Detected; Glipizide None Detected; Glyburide None Detected; Nateglinide None Detected; Pioglitazone None Detected; Repaglinide None Detected; Rosiglitazone None Detected; Tolazamide None Detected; Tolbutamide None Detected
== END 2022-01-10 13:29 | disposition home or self-care (01) | DRG 241 ==
LOC: HO.ED 21:37 → HO.EDOVER 22:43 → HO.IMC 01-10 00:41
PROVIDERS: Internal Medicine Gastroenterology; Student in an Organized Health Care Education/Training Program; Admitting Provider Hospitalist; Emergency Provider Emergency Medicine; PCP Family Medicine; Visit Provider Physician Assistant Medical
PROC: 0DB78ZX Excision of Stomach, Pylorus, Via Natural or Artificial Opening Endoscopic, Diagnostic (ICD-10-PCS; principal; 2022-01-09 16:40)
DX: K29.71 Gastritis, unspecified, with bleeding (principal); E11.649 Type 2 diabetes mellitus with hypoglycemia without coma; D62 Acute posthemorrhagic anemia; I25.10 Atherosclerotic heart disease of native coronary artery without angina pectoris; K26.4 Chronic or unspecified duodenal ulcer with hemorrhage; F32.A Depression, unspecified; F41.9 Anxiety disorder, unspecified; J45.909 Unspecified asthma, uncomplicated; K44.9 Diaphragmatic hernia without obstruction or gangrene; I25.2 Old myocardial infarction; E78.5 Hyperlipidemia, unspecified; Z20.822 Contact with and (suspected) exposure to COVID-19; Z95.5 Presence of coronary angioplasty implant and graft; Z87.891 Personal history of nicotine dependence; Z91.013 Allergy to seafood; Z88.0 Allergy status to penicillin; Z88.6 Allergy status to analgesic agent; Z79.4 Long term (current) use of insulin; Z79.51 Long term (current) use of inhaled steroids; Z79.82 Long term (current) use of aspirin; Z79.899 Other long term (current) drug therapy
CPT/HCPCS: 36415; 36430; 71046; 80048; 80337; 82272; 82607; 82728; 82746; 82947; 83540; 83880; 84484; 85025; 85027; 85610; 86850; 86900; 86901; 86923; 87635; 88305; 88342; 93005; 93306; 99285; 99291; J2250; P9016; Q9957

== ENCOUNTER → 2022-07-09 13:26 | Outpatient (BNVA) | payer MEDICAID, SELFPAY | PROVIDERS: PCP Family Medicine; Visit Provider Nurse Practitioner | DX: K59.04 Chronic idiopathic constipation (principal) | CPT/HCPCS: 99212 ==

== ENCOUNTER 2023-07-21 12:44 | Outpatient (REF) | payer MEDICAID, SELFPAY ==
[2023-07-21 16:14] LABS: Alanine Aminotransferase 33 U/L (0-31); Albumin Level 4.3 g/dL (3.5-5.0); Alkaline Phosphatase 142 U/L (39-117); Aspartate Amino Transferase 18 U/L (5-31); Bilirubin Direct 0.1 mg/dL (0.0-0.5); Bilirubin Total 0.3 mg/dL (0.0-1.0); Cholesterol 209 mg/dL (<200); HDL Cholesterol 43 mg/dL (>40); Total Protein 7.4 g/dL (6.5-8.0); Triglycerides 400 mg/dL (<150)
[2023-07-21 16:30] LABS: Creatinine Urine 171.96 mg/dL; Microalbum/Creatinine Ratio Ur 26.7 ug/mg cr (<30)
== END 2023-07-21 12:45 | disposition home or self-care (01) ==
LOC: HO.HHCL 12:44
PROVIDERS: Visit Provider Family Medicine
DX: E78.5 Hyperlipidemia, unspecified (principal); I25.10 Atherosclerotic heart disease of native coronary artery without angina pectoris; E11.65 Type 2 diabetes mellitus with hyperglycemia; Z79.4 Long term (current) use of insulin
CPT/HCPCS: 36415; 80061; 80076; 82043; 82570

== ENCOUNTER → 2023-07-24 15:15 | Outpatient (BNV) | payer MEDICAID, SELFPAY | PROVIDERS: PCP Family Medicine; Visit Provider Radiology Diagnostic Radiology | DX: Z12.31 Encounter for screening mammogram for malignant neoplasm of breast (principal) | CPT/HCPCS: 77063; 77067 ==

== ENCOUNTER 2023-07-24 15:24 | Outpatient (REF) | payer MEDICAID, SELFPAY | END 2023-07-24 15:25 | disposition home or self-care (01) | LOC: HO.MAMMO 15:24 | PROVIDERS: PCP Family Medicine; Visit Provider Family Medicine | DX: Z12.31 Encounter for screening mammogram for malignant neoplasm of breast (principal) | CPT/HCPCS: 77063; 77067 ==

== ENCOUNTER 2024-01-08 15:02 | Outpatient (REF) | payer MEDICAID, SELFPAY ==
[2024-01-08 16:34] LABS: Anion Gap 12 (12-20); Blood Urea Nitrogen 12 mg/dL (9-16); Calcium 9.8 mg/dL (8.4-10.2); Carbon Dioxide 28 mmol/L (22-29); Chloride 105 mmol/L (96-108); Estimated Glomerular Filt Rate > 60; Glucose Random 281 mg/dL (60-115); Potassium 3.7 mmol/L (3.3-5.1); Sodium 141 mmol/L (135-145)
== END 2024-01-08 15:03 | disposition home or self-care (01) ==
LOC: HO.HHCL 15:02
PROVIDERS: Visit Provider Family Medicine
DX: E11.65 Type 2 diabetes mellitus with hyperglycemia (principal); Z79.4 Long term (current) use of insulin
CPT/HCPCS: 36415; 80048

== ENCOUNTER 2024-03-19 19:38 | Emergency (ER) | payer MEDICAID, SELFPAY ==
--- NOTE | ~2024-03-19 | XR_ITS ---
EXAMINATION: XR CHEST CLINICAL INFORMATION: Shortness of breath. Dizziness. COMPARISON: Chest x-ray January 07, 2022. CT chest September 23, 2019 TECHNIQUE: 2 views of the chest were obtained. FINDINGS: No significant abnormality is noted involving the heart, lungs, mediastinum, bony thorax or soft tissues. XR/XR chest 2V IMPRESSION: Unremarkable examination.
[2024-03-19 19:45] VITALS: BP 125/78; PULSE 113; RESP 16; TEMP 36.7; O2SAT 100; BMI 21.1
--- NOTE | 2024-03-19 19:53 | ECG_ITS ---
Test Reason : upper resp Blood Pressure : / mmHG Vent. Rate : 106 BPM Atrial Rate : 106 BPM P-R Int : 126 ms QRS Dur : 078 ms QT Int : 346 ms P-R-T Axes : 000 -22 141 degrees QTc Int : 459 ms Sinus tachycardia Nonspecific T wave abnormality Abnormal ECG When compared with ECG of 07-JAN-2022 12:04, Nonspecific T wave abnormality no longer evident in Anterior leads Nonspecific T wave abnormality, worse in Lateral leads Referred By: Veronica Carney Electronically Signed By:Ermias Taylor
--- NOTE | 2024-03-19 19:53 | ED.GENADULT ---
HPI - General Adult General Chief complaint: Upper Respiratory Symptoms Stated complaint: dizziness, weakness Time Seen by Provider: 03/19/24 22:15 Source: patient Mode of arrival: ambulatory Limitations: no limitations History of Present Illness ED Provider: Dr. Madelin Dixon HPI narrative: Patient comes to the emergency room complaining of generalized malaise, weakness, congestion, cough, intermittent headache. Patient states that she has no chest pain or shortness of breath. Patient states that her symptoms are mild but she would like to be checked up.. Patient earlier today said in triage that she was complaining of dizziness. When I asked the patient to describe her dizziness, patient states that she does does not feel well patient denies any near syncopal episodes, no room spinning, no lightheadedness. Related Data Home Medications ?Medication ?Instructions ?Recorded ?Confirmed aspirin 81 mg tablet 81 mg PO DAILY 08/13/20 01/07/22 atorvastatin 80 mg tablet 80 mg PO QPM 08/13/20 01/07/22 isosorbide mononitrate 30 mg 30 mg PO DAILY 08/13/20 01/07/22 tablet,extended release 24 hr lisinopril 20 mg tablet 20 mg PO DAILY 08/13/20 01/07/22 albuterol sulfate 90 mcg/actuation 2 puff inhalation Q4-6H PRN 01/07/22 01/07/22 aerosol inhaler (ProAir HFA) Wheezing fluticasone 250 mcg-salmeterol 50 1 puff inhalation BID 01/07/22 01/07/22 mcg/dose blistr powdr for inhalation (Advair Diskus) loratadine 10 mg tablet 1 tab PO QAM 01/07/22 01/07/22 metoprolol succinate 50 mg 1 tab PO QAM 01/07/22 01/07/22 tablet,extended release 24 hr tiotropium bromide 18 mcg capsule 1 cap inhalation DAILY 01/07/22 01/07/22 with inhalation device (Spiriva with HandiHaler) bismuth subsalicylate 262 mg 2 tab PO QID 07/09/22 chewable tablet ferrous sulfate 325 mg (65 mg 325 mg PO Q OTHER DAY 07/09/22 iron) tablet (FeroSul) insulin lispro 100 unit/mL subcut 07/09/22 subcutaneous pen lancets 33 gauge (TRUEplus Lancets) #100 ea 07/09/22 olanzapine 7.5 mg tablet 7.5 mg PO BEDTIME 07/09/22 pen needle, diabetic 32 gauge x #50 ea 07/09/22 (Pentips) Previous Rx's ?Medication ?Instructions ?Recorded insulin glargine 100 unit/mL (3 10 unit (0.1 mL) subcut BEDTIME #0 01/10/22 mL) subcutaneous pen (Lantus mL Solostar U-100 Insulin) pantoprazole 20 mg tablet,delayed 20 mg PO BID 2 weeks #28 tabs 01/23/22 release acetaminophen 500 mg tablet 500 mg PO Q6H PRN fever or pain 03/19/24 #14 tabs ibuprofen 600 mg tablet 600 mg PO TID PRN fever or pain 03/19/24 #14 tabs Allergies Allergy/AdvReac Type Severity Reaction Status Date / Time shellfish derived Allergy Severe Swelling Verified 03/19/24 19:47 [SHELLFISH DERIVED] Penicillins Allergy Mild UNKNOWN - Verified 03/19/24 19:47 RXN CHILD naproxen [NAPROXEN] Allergy Unknown CAN'T TAKE Verified 03/19/24 19:47 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 seasonal allergies Allergy Mild Itchy Eyes Uncoded 03/19/24 19:47 Review of Systems Review of Systems: Constitutional : No Weight loss, No Fever, No Chills, No Night Sweats, complaining of mild fatigue and generalized malaise ENT/Mouth : No Hearing loss, No Ear Pain, complaining of Nasal Congestion, No Sinus Pain, No Hoarseness, No sore throat, No Rhinorrhea, No Swallowing Difficulty Eyes: No Eye Pain, No Swelling, No Redness, No Foreign Body, No Discharge, No Vision Changes Cardiovascular : No Chest Pain, No SOB, No Dyspnea on Exertion, No Orthopnea, No Edema, No Palpitations Respiratory : No Cough, No Sputum, No Wheezing, No Smoke Exposure, No Dyspnea Gastrointestinal : No Nausea, No Vomiting, No Diarrhea, No Constipation, No abdominal Pain, No Hematochezia, No Melena Genitourinary : no irregular bleeding, No Dysuria, No Urinary Frequency, No Hematuria, No Urinary Incontinence, No Urgency, No Flank Pain, No Urinary Flow Changes, No Hesitancy Musculoskeletal : No joint pain, No Myalgias, No Joint Swelling Skin : No Skin Lesions, No rash Neuro : No Weakness, No Numbness, No Paresthesias, No Loss of Consciousness, No Dizziness, No Headache Psych : No Anxiety/Panic, No Depression, No SI/HI/AH/VH, No Social Issues, Heme/Lymph: No Bruising, No Bleeding,No Lymphadenopathy Endocrine : No Polyuria, No Polydipsia, No Temperature Intolerance [facility] Past Medical History Medical History Symptomatic anemia GI bleed Diabetes Anxiety Depression Asthma History of heart attack CAD (coronary artery disease) Hypercholesteremia HTN (hypertension) Surgical History (Updated 07/09/22 @ 14:44 by DELMI Iraheta) Stented coronary artery Hx of colonoscopy (04/11/14) Family History Family History Father Diabetes Hypercholesteremia HTN (hypertension) Mother HTN (hypertension) Diabetes Hypercholesteremia Brother HTN (hypertension) Diabetes Social History Social History Household Members: None Housing: House 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 Oriented X3. No acute distress. Eyes: Pupils equal, round and reactive to light. ENT: Pharynx normal. Neck: Normal inspection. Neck supple. No lymph nodes noted. No crepitus CVS: Normal heart rate and rhythm. Pulses normal. Normal S1 and S2 Respiratory: No respiratory distress. Breath sounds normal. No Wheezing. No rales Abdomen: Soft and nontender. No rigidity. No distention. Skin: Skin warm and dry. Normal skin color. Normal skin turgor. Extremities: No lower extremity edema. No Lacerations. No Rash Neuro: Oriented X 3. No motor deficit. No sensory deficit. Moving all extremities. No slurred speech. CN 2 through 12 grossly intact Psych: calm, cooperative, normal affect Course Course Course Narrative: RME performed by Veronica Carney PA-C. Patient is a 58 year old assigned female at presenting to the emergency department with dizziness, cough, and feeling generally unwell. Detailed physical exam and review of systems are deferred to the cardio clinician. EKG, labs, imaging, and swabs ordered. Patient placed back in the waiting room pending room availability and results. Medical Decision Making Medical Decision Making [facility] Narrative: -my interpretation of EKG: Normal sinus rhythm, nonspecific ST segment changes in V1, no ST segment depression elevation or inversion in the other leads. QTC 459. - my interpretation of labs, normal hematology, sodium a bit low, 132, glucose 366. -patient declined any further intervention. Patient states that she feels well and would like to go home, patient does not want to wait for fluids or insulin. Patient states that she feels well, does not want any Tylenol or ibuprofen -physical exam unremarkable. Patient states that she has no dizziness when she stands up -requesting a prescription of Tylenol and Motrin to be sent to her pharmacy. Differential Diagnosis Differential Diagnoses: The differential diagnosis associated with the presentation includes Lab Data [facility] Lab Attestation statement: I reviewed the patient's lab results. 03/19/24 20:07 03/19/24 20:07 Labs: Lab Results 03/19/24 03/19/24 Range/Units 20:07 21:33 WBC 6.8 (4.8-10.8) X10*3/uL RBC 4.16 L D (4.20-5.50) X10*6/uL Hgb 12.1 D (12.0-16.0) g/dl Hct 35.8 L D (37.0-47.0) % MCV 86.1 (80.0-98.0) fL MCH 29.1 (27.0-33.0) pg MCHC 33.8 (31.0-35.0) g/dl RDW 11.5 (11.0-16.0) % Plt Count 283 (160-400) X10*3/uL MPV 10.3 (9.4-12.3) fL Immature Gran % (Auto) 0.4 (0.0-0.4) % Neut % (Auto) 75.4 H (45-73) % Lymph % (Auto) 18.2 L (20-40) % [place] % (Auto) 5.7 (2-11) % Eos % (Auto) 0.3 (0-4) % Baso % (Auto) 0.0 (0-2) % Lymph # (Auto) 1.2 (1.2-4.9) X10*3/uL [place] # (Auto) 0.4 (0.1-1.2) X10*3/uL Eos # (Auto) 0.0 (0.0-0.4) X10*3/uL Baso # (Auto) 0.0 (0.0-0.2) X10*3/uL Abs Immat Gran (auto) 0.03 (0.00-0.03) X10*3/uL Absolute Neuts (auto) 5.1 (2.0-8.3) x10*3/uL Absolute Nucleated RBC 0.000 (0.0-0.012) X10*3/uL Nucleated RBC % (auto) 0.0 (0.0-0.2) /100WBC Sodium 132 L (135-145) mmol/L Potassium 4.1 (3.3-5.1) mmol/L Chloride 98 (96-108) mmol/L Carbon Dioxide 21 L (22-29) mmol/L Anion Gap 17 (12-20) BUN 22 H (9-16) mg/dL Creatinine 1.16 (0.5-1.4) mg/dL Estim Creat Clear Calc 40.7 Estimated GFR 48 POC Glucose 366 H* (60-115) mg/dL Random Glucose 413 H* (60-115) mg/dL Calcium 10.3 H (8.4-10.2) mg/dL Magnesium 1.9 (1.6-2.6) mg/dL Total Bilirubin 0.5 (0.0-1.0) mg/dL AST 20 (5-31) U/L ALT 30 (0-31) U/L Alkaline Phosphatase 99 (39-117) U/L Troponin I High Sens 15.5 (<3.5-17.0) ng/L Total Protein 7.7 (6.5-8.0) g/dL Albumin 4.3 (3.5-5.0) g/dL Beta-Hydroxybutyrate 0.56 H (0.02-0.27) mmol/L Influenza Type A (PCR) NEGATIVE (Negative) Influenza Type B (PCR) NEGATIVE (Negative) RSV RNA Qual (PCR) NEGATIVE (Negative) SARS-CoV-2 RNA (RT-PCR) POSITIVE A (Negative) Discharge Plan Discharge Clinical Impression: COVID Patient Disposition: Home, Self-Care Instructions: COVID-19 (Coronavirus Disease 2019) (ED) Additional Instructions: Please follow-up with your primary care physician tomorrow. If you have any worsening or new symptoms, please return to the emergency room or call 911 Prescriptions: New acetaminophen 500 mg tablet 500 mg PO Q6H PRN (Reason: fever or pain) Qty: 14 0RF ibuprofen 600 mg tablet 600 mg PO TID PRN (Reason: fever or pain) Qty: 14 0RF No Action pantoprazole 20 mg tablet,delayed release (DR/EC) 20 mg PO BID 14 Days Qty: 28 0RF atorvastatin 80 mg Tablet 80 mg PO QPM lisinopril 20 mg Tablet 20 mg PO DAILY isosorbide mononitrate 30 mg Tablet Extended Release 24 Hr 30 mg PO DAILY aspirin 81 mg Tablet 81 mg PO DAILY fluticasone propion-salmeterol [Advair Diskus] 250-50 mcg/dose blister with device 1 puff inhalation BID loratadine 10 mg tablet 1 tab PO QAM Spiriva with HandiHaler 18 mcg capsule, w/inhalation device 1 cap inhalation DAILY metoprolol succinate 50 mg tablet extended release 24 hr 1 tab PO QAM albuterol sulfate [ProAir HFA] 90 mcg/actuation HFA aerosol inhaler 2 puff inhalation Q4-6H PRN (Reason: Wheezing) Lantus Solostar U-100 Insulin 100 unit/mL (3 mL) insulin pen 10 unit subcut BEDTIME Qty: 0 0RF bismuth subsalicylate 262 mg tablet,chewable 2 tab PO QID (DME) lancets [TRUEplus Lancets] 33 gauge misc See Rx Instructions .ROUTE .MEDSUPPLY Qty: 100 Rx Instructions: As directed insulin lispro 100 unit/mL insulin pen subcut (DME) pen needle, diabetic [Pentips] 32 gauge x needle See Rx Instructions .ROUTE QID Qty: 50 Rx Instructions: As directed olanzapine 7.5 mg tablet 7.5 mg PO BEDTIME ferrous sulfate [FeroSul] 325 mg (65 mg iron) tablet 325 mg PO Q OTHER DAY Print Language: Venezuelan
--- NOTE | 2024-03-19 20:11 | MHC.EDTECH ---
Patient ekg taken and was read by provider ,blood drawn and ,rsv /covid swab collected all sent to lab .
[2024-03-19 20:13] LABS: MANUAL DIFF FLAG NO
[2024-03-19 20:14] LABS: Eosinophils Percent Auto 0.3 % (0-4); Hematocrit 35.8 % (37.0-47.0); Hemoglobin 12.1 g/dl (12.0-16.0); Imm Gran Abs Auto 0.03 X10*3/uL (0.00-0.03); Imm Gran Pct Auto 0.4 % (0.0-0.4); Lymphocytes Absolute Auto 1.2 X10*3/uL (1.2-4.9); Lymphocytes Percent Auto 18.2 % (20-40); Mean Corpuscular HGB Conc 33.8 g/dl (31.0-35.0); Mean Corpuscular Hemoglobin 29.1 pg (27.0-33.0); Mean Corpuscular Volume 86.1 fL (80.0-98.0); Mean Platelet Volume 10.3 fL (9.4-12.3); Monocytes Absolute Auto 0.4 X10*3/uL (0.1-1.2); Monocytes Percent Auto 5.7 % (2-11); Neutrophils Absolute Auto 5.1 x10*3/uL (2.0-8.3); Neutrophils Percent Auto 75.4 % (45-73); Platelet Count 283 X10*3/uL (160-400); Red Blood Count 4.16 X10*6/uL (4.20-5.50); Red Cell Distribution Width 11.5 % (11.0-16.0); White Blood Count 6.8 X10*3/uL (4.8-10.8)
[2024-03-19 20:36] LABS: Troponin-I High Sensitivity 15.5 ng/L (<3.5-17.0)
[2024-03-19 20:38] LABS: Alanine Aminotransferase 30 U/L (0-31); Albumin Level 4.3 g/dL (3.5-5.0); Alkaline Phosphatase 99 U/L (39-117); Anion Gap 17 (12-20); Aspartate Amino Transferase 20 U/L (5-31); Bilirubin Total 0.5 mg/dL (0.0-1.0); Blood Urea Nitrogen 22 mg/dL (9-16); Calcium 10.3 mg/dL (8.4-10.2); Carbon Dioxide 21 mmol/L (22-29); Chloride 98 mmol/L (96-108); Creatinine Clr Calc Pharmacy 40.7; Estimated Glomerular Filt Rate 48; Glucose Random 413 mg/dL (60-115); Magnesium 1.9 mg/dL (1.6-2.6); Potassium 4.1 mmol/L (3.3-5.1); Sodium 132 mmol/L (135-145); Total Protein 7.7 g/dL (6.5-8.0)
[2024-03-19 20:52] LABS: Influenza A PCR NEGATIVE (Negative); Influenza B PCR NEGATIVE (Negative); Resp Syncy Virus RNA Qual PCR NEGATIVE (Negative); SARS COV2 PCR INHOUSE POSITIVE (Negative)
[2024-03-19 20:57] LABS: Beta-Hydroxybutyrate 0.56 mmol/L (0.02-0.27)
[2024-03-19 21:36] LABS: Glucose, Whole Blood 366 mg/dL (60-115)
[2024-03-19 22:53] VITALS: BP 138/84; PULSE 98; RESP 16; TEMP 37.2; O2SAT 97
== END 2024-03-19 22:58 | disposition home or self-care (01) ==
PROVIDERS: Physician Assistant Medical; Emergency Provider Emergency Medicine; PCP Family Medicine
DX: U07.1 COVID-19 (principal); R53.1 Weakness; E11.9 Type 2 diabetes mellitus without complications; I10 Essential (primary) hypertension; E78.5 Hyperlipidemia, unspecified; Z79.02 Long term (current) use of antithrombotics/antiplatelets; Z79.82 Long term (current) use of aspirin; Z79.899 Other long term (current) drug therapy; Z79.4 Long term (current) use of insulin
CPT/HCPCS: 0241U; 71046; 80053; 82010; 82947; 83735; 84484; 85025; 93005; 99283

== ENCOUNTER → 2024-03-19 19:53 | Outpatient (BNV) | payer MEDICAID, SELFPAY | PROVIDERS: Emergency Provider Emergency Medicine; PCP Family Medicine; Visit Provider Internal Medicine Cardiovascular Disease | DX: R94.31 Abnormal electrocardiogram [ECG] [EKG] (principal) | CPT/HCPCS: 93010 ==

== ENCOUNTER 2024-04-05 11:41 | Outpatient (REF) | payer MEDICAID, SELFPAY ==
[2024-04-05 14:10] LABS: Alanine Aminotransferase 48 U/L (0-31); Alkaline Phosphatase 114 U/L (39-117); Aspartate Amino Transferase 15 U/L (5-31); Bilirubin Direct 0.1 mg/dL (0.0-0.5); Bilirubin Total 0.3 mg/dL (0.0-1.0); Cholesterol 206 mg/dL (<200); HDL Cholesterol 57 mg/dL (>40); LDL Cholesterol Calculated 85 mg/dL (<100); Triglycerides 320 mg/dL (<150)
== END 2024-04-05 11:42 | disposition home or self-care (01) ==
LOC: HO.HHCL 11:41
PROVIDERS: Visit Provider Family Medicine
DX: E78.5 Hyperlipidemia, unspecified (principal)
CPT/HCPCS: 36415; 80061; 80076

== ENCOUNTER 2024-05-17 13:44 | Outpatient (REF) | payer MEDICAID, SELFPAY ==
[2024-05-17 17:12] LABS: TSH reflex Free T4 0.62 uIU/mL (0.32-4.0)
[2024-05-17 17:26] LABS: Folate 15.1 ng/mL (> or = 4.0); Vitamin B12 555 pg/mL (200-900)
== END 2024-05-17 13:45 | disposition home or self-care (01) ==
LOC: HO.HHCL 13:44
PROVIDERS: Visit Provider Internal Medicine
DX: G62.9 Polyneuropathy, unspecified (principal)
CPT/HCPCS: 36415; 82607; 82746; 84443

== ENCOUNTER 2024-06-17 14:39 | Emergency (ER) | payer MEDICAID, SELFPAY ==
[2024-06-17 14:47] VITALS: BP 115/77; PULSE 100; RESP 20; TEMP 36; O2SAT 98; BMI 22.5
--- NOTE | 2024-06-17 14:49 | ED_ITS ---
HPI - General Adult General Chief complaint: Weakness Stated complaint: diabetic, not feeling well Related Data Home Medications ?Medication ?Instructions ?Recorded ?Confirmed aspirin 81 mg tablet 81 mg PO DAILY 08/13/20 01/07/22 atorvastatin 80 mg tablet 80 mg PO QPM 08/13/20 01/07/22 isosorbide mononitrate 30 mg 30 mg PO DAILY 08/13/20 01/07/22 tablet,extended release 24 hr lisinopril 20 mg tablet 20 mg PO DAILY 08/13/20 01/07/22 albuterol sulfate 90 mcg/actuation 2 puff inhalation Q4-6H PRN 01/07/22 01/07/22 aerosol inhaler (ProAir HFA) Wheezing fluticasone 250 mcg-salmeterol 50 1 puff inhalation BID 01/07/22 01/07/22 mcg/dose blistr powdr for inhalation (Advair Diskus) loratadine 10 mg tablet 1 tab PO QAM 01/07/22 01/07/22 metoprolol succinate 50 mg 1 tab PO QAM 01/07/22 01/07/22 tablet,extended release 24 hr tiotropium bromide 18 mcg capsule 1 cap inhalation DAILY 01/07/22 01/07/22 with inhalation device (Spiriva with HandiHaler) bismuth subsalicylate 262 mg 2 tab PO QID 07/09/22 chewable tablet ferrous sulfate 325 mg (65 mg 325 mg PO Q OTHER DAY 07/09/22 iron) tablet (FeroSul) insulin lispro 100 unit/mL subcut 07/09/22 subcutaneous pen lancets 33 gauge (TRUEplus Lancets) #100 ea 07/09/22 olanzapine 7.5 mg tablet 7.5 mg PO BEDTIME 07/09/22 pen needle, diabetic 32 gauge x #50 ea 07/09/22 (Pentips) Previous Rx's ?Medication ?Instructions ?Recorded insulin glargine 100 unit/mL (3 10 unit (0.1 mL) subcut BEDTIME #0 01/10/22 mL) subcutaneous pen (Lantus mL Solostar U-100 Insulin) pantoprazole 20 mg tablet,delayed 20 mg PO BID 2 weeks #28 tabs 01/23/22 release acetaminophen 500 mg tablet 500 mg PO Q6H PRN fever or pain 03/19/24 #14 tabs ibuprofen 600 mg tablet 600 mg PO TID PRN fever or pain 03/19/24 #14 tabs Allergies Allergy/AdvReac Type Severity Reaction Status Date / Time shellfish derived Allergy Severe Swelling Verified 06/17/24 14:49 [SHELLFISH DERIVED] Penicillins Allergy Mild UNKNOWN - Verified 06/17/24 14:49 RXN CHILD naproxen [NAPROXEN] Allergy Unknown CAN'T TAKE Verified 06/17/24 14:49 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 seasonal allergies Allergy Mild Itchy Eyes Uncoded 06/17/24 14:49 PMFSH Past Medical History Medical History Symptomatic anemia GI bleed Diabetes Anxiety Depression Asthma History of heart attack CAD (coronary artery disease) Hypercholesteremia HTN (hypertension) Surgical History (Updated 07/09/22 @ 14:44 by DELMI Iraheta) Stented coronary artery Hx of colonoscopy (04/11/14) Family History Family History Father Diabetes Hypercholesteremia HTN (hypertension) Mother HTN (hypertension) Diabetes Hypercholesteremia Brother HTN (hypertension) Diabetes Social History Social History Household Members: None Housing: House 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) Alcohol intake: current Alcohol intake frequency: does not drink Patient Tobacco Use Status: Former Tobacco user Advance Directives: No Advance Directives Information Provided: No Do you have a plan to hurt others: No Plan service: No Current occupational status: disabled Physical Exam ED Vital Signs: Vital Signs - 24 hr 06/17/24 14:47 Temperature 96.8 F Pulse Rate 100 Respiratory Rate 20 Blood Pressure 115/77 Pulse Oximetry 98 Oxygen Delivery Method Room Air BMI result Body Mass Index 22.5 Course Course Course Narrative: This is a Rapid Medical Examination (RME) performed by Maricarmen Cervantes PA-C in triage. Full HPI, ROS, assessment and treatment plan per primary provider in the Main ED. 58 yo female here for eval of decreased appetite and generalized weakness x3 days. hx DM, glucose at home has been >200. taking insulin as needed. no sick contacts. Plan: labs, ekg, UA Reevaluation(s) Reevaluation #1: Patient left the emergency department before myself or any of the other clinicians could review or explain physical exam findings, test results, need or lack there of for additional testing, treatment options, or a treatment plan. Medical Decision Making Lab Data 06/17/24 15:09 06/17/24 15:09 Labs: Lab Results 06/17/24 Range/Units 15:09 WBC 8.0 (4.8-10.8) X10*3/uL RBC 4.11 L (4.20-5.50) X10*6/uL Hgb 12.6 (12.0-16.0) g/dl Hct 35.8 L (37.0-47.0) % MCV 87.1 (80.0-98.0) fL MCH 30.7 (27.0-33.0) pg MCHC 35.2 H (31.0-35.0) g/dl RDW 11.2 (11.0-16.0) % Plt Count 306 (160-400) X10*3/uL MPV 10.3 (9.4-12.3) fL Immature Gran % (Auto) 0.5 H (0.0-0.4) % Neut % (Auto) 73.4 H (45-73) % Lymph % (Auto) 15.0 L (20-40) % [place] % (Auto) 9.0 (2-11) % Eos % (Auto) 1.9 (0-4) % Baso % (Auto) 0.2 (0-2) % Lymph # (Auto) 1.2 (1.2-4.9) X10*3/uL [place] # (Auto) 0.7 (0.1-1.2) X10*3/uL Eos # (Auto) 0.2 (0.0-0.4) X10*3/uL Baso # (Auto) 0.0 (0.0-0.2) X10*3/uL Abs Immat Gran (auto) 0.04 H (0.00-0.03) X10*3/uL Absolute Neuts (auto) 5.9 (2.0-8.3) x10*3/uL Absolute Nucleated RBC 0.000 (0.0-0.012) X10*3/uL Nucleated RBC % (auto) 0.0 (0.0-0.2) /100WBC Sodium 137 (135-145) mmol/L Potassium 3.3 (3.3-5.1) mmol/L Chloride 99 (96-108) mmol/L Carbon Dioxide 28 (22-29) mmol/L Anion Gap 13 (12-20) BUN 9 (9-16) mg/dL Creatinine 1.00 (0.5-1.4) mg/dL Estim Creat Clear Calc 47.3 Estimated GFR 57 Random Glucose 272 H (60-115) mg/dL Calcium 11.0 H D (8.4-10.2) mg/dL Magnesium 2.2 (1.6-2.6) mg/dL Total Bilirubin 0.5 (0.0-1.0) mg/dL AST 23 (5-31) U/L ALT 29 (0-31) U/L Alkaline Phosphatase 98 (39-117) U/L Troponin I High Sens 13.8 (<3.5-17.0) ng/L Total Protein 8.2 H (6.5-8.0) g/dL Albumin 4.7 (3.5-5.0) g/dL Lipase 26 (8-78) U/L Urine Color Yellow Urine Appearance Clear Urine pH 7.5 (5.0-9.0) Ur Specific [place] 1.015 (1.005-1.025) Urine Protein Negative (Neg-Trace) mg/dL Urine Glucose (UA) >=1000 H (Negative) mg/dL Urine Ketones Negative (Negative) mg/dL Urine Blood Negative (Negative) Urine Nitrite Negative (Negative) Ur Leukocyte Esterase Negative (Negative) Urine RBC 0-2 (0-2) /HPF Urine WBC 0-5 (0-5) /HPF Ur Squamous Epith Cells 0-2 (0-2) /HPF Urine Bacteria None Seen (None Seen) Hyaline Casts 0-2 (0-2) /LPF Influenza Type A (PCR) NEGATIVE (Negative) Influenza Type B (PCR) NEGATIVE (Negative) RSV RNA Qual (PCR) NEGATIVE (Negative) SARS-CoV-2 RNA (RT-PCR) NEGATIVE (Negative) Discharge Plan Discharge Clinical Impression: Generalized weakness Patient Disposition: Left W/O Completing Treatment Prescriptions: No Action pantoprazole 20 mg tablet,delayed release (DR/EC) 20 mg PO BID 14 Days Qty: 28 0RF atorvastatin 80 mg Tablet 80 mg PO QPM lisinopril 20 mg Tablet 20 mg PO DAILY isosorbide mononitrate 30 mg Tablet Extended Release 24 Hr 30 mg PO DAILY aspirin 81 mg Tablet 81 mg PO DAILY fluticasone propion-salmeterol [Advair Diskus] 250-50 mcg/dose blister with device 1 puff inhalation BID loratadine 10 mg tablet 1 tab PO QAM Spiriva with HandiHaler 18 mcg capsule, w/inhalation device 1 cap inhalation DAILY metoprolol succinate 50 mg tablet extended release 24 hr 1 tab PO QAM albuterol sulfate [ProAir HFA] 90 mcg/actuation HFA aerosol inhaler 2 puff inhalation Q4-6H PRN (Reason: Wheezing) Lantus Solostar U-100 Insulin 100 unit/mL (3 mL) insulin pen 10 unit subcut BEDTIME Qty: 0 0RF acetaminophen 500 mg tablet 500 mg PO Q6H PRN (Reason: fever or pain) Qty: 14 0RF ibuprofen 600 mg tablet 600 mg PO TID PRN (Reason: fever or pain) Qty: 14 0RF bismuth subsalicylate 262 mg tablet,chewable 2 tab PO QID (DME) lancets [TRUEplus Lancets] 33 gauge misc See Rx Instructions .ROUTE .MEDSUPPLY Qty: 100 Rx Instructions: As directed insulin lispro 100 unit/mL insulin pen subcut (DME) pen needle, diabetic [Pentips] 32 gauge x 5/32 needle See Rx Instructions .ROUTE QID Qty: 50 Rx Instructions: As directed olanzapine 7.5 mg tablet 7.5 mg PO BEDTIME ferrous sulfate [FeroSul] 325 mg (65 mg iron) tablet 325 mg PO Q OTHER DAY Discharge Date/Time: 06/17/24 20:26
--- NOTE | 2024-06-17 14:50 | ECG_ITS ---
Test Reason : weakness Blood Pressure : / mmHG Vent. Rate : 099 BPM Atrial Rate : 099 BPM P-R Int : 132 ms QRS Dur : 074 ms QT Int : 354 ms P-R-T Axes : 062 -33 016 degrees QTc Int : 454 ms Normal sinus rhythm Left axis deviation Abnormal ECG When compared with ECG of 19-MAR-2024 19:55, Nonspecific T wave abnormality no longer evident in Lateral leads Referred By: Dinorah Cervantes Electronically Signed By:GUILLERMO ARMSTRONG
[2024-06-17 15:21] LABS: MANUAL DIFF FLAG NO
[2024-06-17 15:24] LABS: Basophils Percent Auto 0.2 % (0-2); Eosinophils Absolute Auto 0.2 X10*3/uL (0.0-0.4); Eosinophils Percent Auto 1.9 % (0-4); Hematocrit 35.8 % (37.0-47.0); Hemoglobin 12.6 g/dl (12.0-16.0); Imm Gran Abs Auto 0.04 X10*3/uL (0.00-0.03); Imm Gran Pct Auto 0.5 % (0.0-0.4); Lymphocytes Absolute Auto 1.2 X10*3/uL (1.2-4.9); Mean Corpuscular HGB Conc 35.2 g/dl (31.0-35.0); Mean Corpuscular Hemoglobin 30.7 pg (27.0-33.0); Mean Corpuscular Volume 87.1 fL (80.0-98.0); Mean Platelet Volume 10.3 fL (9.4-12.3); Monocytes Absolute Auto 0.7 X10*3/uL (0.1-1.2); Neutrophils Absolute Auto 5.9 x10*3/uL (2.0-8.3); Neutrophils Percent Auto 73.4 % (45-73); Platelet Count 306 X10*3/uL (160-400); Red Blood Count 4.11 X10*6/uL (4.20-5.50); Red Cell Distribution Width 11.2 % (11.0-16.0)
[2024-06-17 15:25] LABS: Appearance Urine Clear; Color Urine Yellow; Glucose Urine UA >=1000 mg/dL (Negative); Leukocyte Esterase Urine Negative (Negative); Nitrite Urine Negative (Negative); PH 7.5 (5.0-9.0); Specific Gravity - Urine 1.015 (1.005-1.025); UMIC TRIGGER UACC YES; Urine Blood Negative (Negative); Urine Ketones Negative (Negative); Urine Protein Negative (Neg-Trace)
[2024-06-17 15:40] LABS: Alanine Aminotransferase 29 U/L (0-31); Albumin Level 4.7 g/dL (3.5-5.0); Alkaline Phosphatase 98 U/L (39-117); Anion Gap 13 (12-20); Aspartate Amino Transferase 23 U/L (5-31); Bilirubin Total 0.5 mg/dL (0.0-1.0); Blood Urea Nitrogen 9 mg/dL (9-16); Carbon Dioxide 28 mmol/L (22-29); Chloride 99 mmol/L (96-108); Creatinine Clr Calc Pharmacy 47.3; Estimated Glomerular Filt Rate 57; Glucose Random 272 mg/dL (60-115); Lipase 26 U/L (8-78); Magnesium 2.2 mg/dL (1.6-2.6); Potassium 3.3 mmol/L (3.3-5.1); Sodium 137 mmol/L (135-145); Total Protein 8.2 g/dL (6.5-8.0)
[2024-06-17 15:47] LABS: Troponin-I High Sensitivity 13.8 ng/L (<3.5-17.0)
[2024-06-17 15:54] LABS: Bacteria Urine None Seen (None Seen); Hyaline Casts Urine 0-2 /LPF (0-2); Squamous Epithelial Cell Urine 0-2 /HPF (0-2); WBC Urine 0-5 /HPF (0-5)
[2024-06-17 16:01] LABS: Influenza A PCR NEGATIVE (Negative); Influenza B PCR NEGATIVE (Negative); Resp Syncy Virus RNA Qual PCR NEGATIVE (Negative); SARS COV2 PCR INHOUSE NEGATIVE (Negative)
[2024-06-17 16:02] LABS: RBC Urine 0-2 /HPF (0-2)
== END 2024-06-17 20:26 | disposition left against medical advice (07) ==
PROVIDERS: Physician Assistant Medical; Emergency Provider Emergency Medicine; PCP Family Medicine
DX: R53.1 Weakness (principal); E11.9 Type 2 diabetes mellitus without complications; R94.31 Abnormal electrocardiogram [ECG] [EKG]; Z79.4 Long term (current) use of insulin; Z03.818 Encounter for observation for suspected exposure to other biological agents ruled out; Z79.899 Other long term (current) drug therapy
CPT/HCPCS: 0241U; 80053; 81001; 83690; 83735; 84484; 85025; 93005; 99283

== ENCOUNTER → 2024-06-17 14:50 | Outpatient (BNV) | payer MEDICAID, SELFPAY | PROVIDERS: Emergency Provider Emergency Medicine; PCP Family Medicine; Visit Provider Internal Medicine | DX: R94.31 Abnormal electrocardiogram [ECG] [EKG] (principal) | CPT/HCPCS: 93010 ==

== ENCOUNTER 2024-06-18 12:29 | Emergency (ER) | payer MEDICAID, SELFPAY ==
[2024-06-18 12:36] VITALS: BP 136/70; PULSE 96; RESP 16; TEMP 37; O2SAT 100; BMI 21.3
--- NOTE | 2024-06-18 12:39 | ED_ITS ---
HPI - Abdominal Pain General Chief Complaint: General Medical Stated Complaint: Doesnt feel good Time Seen by Provider: 06/18/24 14:30 Source: patient Mode of arrival: ambulatory Limitations: no limitations History of Present Illness ED Provider: Aquilino BARBA HPI narrative: This is a 58-year-old female history of chronic idiopathic constipation, coronary artery disease, hypertension, diabetes presenting to the emergency department with fatigue, malaise, myalgias, soft stools ( clarifies not actual diarrhea) , decreased appetite x5 days. No associated pain with any of this. Patient denies chest pain, shortness of breath, headache, vision changes, dizziness, weakness, nausea, vomiting, blood in stool or vomit, sick contacts, palpitations, recent travel or changes in eating habits. Not on recent atbx Related Data Home Medications ?Medication ?Instructions ?Recorded ?Confirmed aspirin 81 mg tablet 81 mg PO DAILY 08/13/20 01/07/22 atorvastatin 80 mg tablet 80 mg PO QPM 08/13/20 01/07/22 isosorbide mononitrate 30 mg 30 mg PO DAILY 08/13/20 01/07/22 tablet,extended release 24 hr lisinopril 20 mg tablet 20 mg PO DAILY 08/13/20 01/07/22 albuterol sulfate 90 mcg/actuation 2 puff inhalation Q4-6H PRN 01/07/22 01/07/22 aerosol inhaler (ProAir HFA) Wheezing fluticasone 250 mcg-salmeterol 50 1 puff inhalation BID 01/07/22 01/07/22 mcg/dose blistr powdr for inhalation (Advair Diskus) loratadine 10 mg tablet 1 tab PO QAM 01/07/22 01/07/22 metoprolol succinate 50 mg 1 tab PO QAM 01/07/22 01/07/22 tablet,extended release 24 hr tiotropium bromide 18 mcg capsule 1 cap inhalation DAILY 01/07/22 01/07/22 with inhalation device (Spiriva with HandiHaler) bismuth subsalicylate 262 mg 2 tab PO QID 07/09/22 chewable tablet ferrous sulfate 325 mg (65 mg 325 mg PO Q OTHER DAY 07/09/22 iron) tablet (FeroSul) insulin lispro 100 unit/mL subcut 07/09/22 subcutaneous pen lancets 33 gauge (TRUEplus Lancets) #100 ea 07/09/22 olanzapine 7.5 mg tablet 7.5 mg PO BEDTIME 07/09/22 pen needle, diabetic 32 gauge x #50 ea 07/09/22 (Pentips) Previous Rx's ?Medication ?Instructions ?Recorded insulin glargine 100 unit/mL (3 10 unit (0.1 mL) subcut BEDTIME #0 01/10/22 mL) subcutaneous pen (Lantus mL Solostar U-100 Insulin) pantoprazole 20 mg tablet,delayed 20 mg PO BID 2 weeks #28 tabs 01/23/22 release acetaminophen 500 mg tablet 500 mg PO Q6H PRN fever or pain 03/19/24 #14 tabs ibuprofen 600 mg tablet 600 mg PO TID PRN fever or pain 03/19/24 #14 tabs Allergies Allergy/AdvReac Type Severity Reaction Status Date / Time shellfish derived Allergy Severe Swelling Verified 06/18/24 12:42 [SHELLFISH DERIVED] Penicillins Allergy Mild UNKNOWN - Verified 06/18/24 12:42 RXN CHILD naproxen [NAPROXEN] Allergy Unknown CAN'T TAKE Verified 06/18/24 12:42 PER HER IT SUPPORT CONSULTANT seasonal allergies Allergy Mild Itchy Eyes Uncoded 06/17/24 14:49 Review of Systems Review of Systems Yes all other systems are reviewed and are negative [facility] Past Medical History Attestation statement: The following information was validated with the patient. 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 Oriented X3.? No acute distress.? Head: Normocephalic, atraumatic, no step-offs or deformities Eyes: Pupils equal, round and reactive to light.?? Neck: Normal inspection.? Neck supple.? CVS: Normal heart rate and rhythm.? Pulses normal.? Respiratory: No respiratory distress.? Breath sounds normal.? Abdomen: Soft and nontender.? Skin: Skin warm and dry.? Normal skin color.? Normal skin turgor.? Extremities: No lower extremity edema.? No calf ttp. 5/5 strength to bilateral upper and lower extremities Neuro: Oriented X 3.? No motor deficit.? No sensory deficit. CN 2-12 intact Course Course Course Narrative: This is an RME: Additional HPI, ROS, PE not included below will be deferred to primary provider. RME assessment and note performed by: Gema Sharp PA-C This is a [id number]-female, with a hx of diabetes, HTN, CAD, who presents to the ER with a complaint of decreased appetite x 5 days. Pt LWCT yesterday. She denies any abdominal pain. Plan: LAbs, UA, EKG Reevaluation(s) Reevaluation #1: CBC with a normocytic anemia. Chemistry with low potassium 2.9 will give oral potassium. Troponin negative, EKG nonischemic patient not complaining of chest pain or shortness of breath. UA without infection. Repeat troponin pending. Will give oral potassium. Plan is for discharge home likely viral illness. Time: 14:57 Reevaluation #2: Patient's 2nd troponin 13.4, patient never had chest pain, this is likely her baseline value. No chest pain, shortness of breath. Patient feeling well overall. She would like to go home. Will discharge her with PCP follow-up. Potassium improved Educated patient on diagnosis and treatment plan, answered all question, patient verbalizes understanding. At this time patient will be discharged home, advised to return with new or worsening symptoms. Educated on worrisome signs and symptoms and when to return. At this time I feel comfortable discharge home. Time: 16:15 Medical Decision Making Medical Decision Making [facility] Narrative: 1433 58-year-old female presents with fatigue, malaise, myalgias, diarrhea, poor p.o. intake ongoing for 5 days. No associated pain. Physical exam benign History and physical exam concerning for gastroenteritis versus viral illness. Unlikely acute abdomen, diverticulitis, pancreatitis, cholecystitis. Will rule out metabolic derangements. I do not suspect Clostridium difficile or other bacterial diarrhea Plan- labs, urine, stool studies Differential Diagnosis Differential Diagnoses: The differential diagnosis associated with the presentation includes (History and physical exam concerning for gastroenteritis versus viral illness. Unlikely acute abdomen, diverticulitis, pancreatitis, cholecystitis. Will rule out metabolic derangements.) Admission/Observation Consideration of admission/observation: Escalation of care including admission/observation considered Lab Data [facility] Lab Attestation statement: I reviewed the patient's lab results. 06/18/24 12:51 06/18/24 15:38 Labs: Lab Results 06/18/24 06/18/24 06/18/24 Range/Units 12:51 14:26 15:38 WBC 7.4 (4.8-10.8) X10*3/uL RBC 3.91 L (4.20-5.50) X10*6/uL Hgb 11.7 L (12.0-16.0) g/dl Hct 33.6 L (37.0-47.0) % MCV 85.9 (80.0-98.0) fL MCH 29.9 (27.0-33.0) pg MCHC 34.8 (31.0-35.0) g/dl RDW 11.3 (11.0-16.0) % Plt Count 278 (160-400) X10*3/uL MPV 10.1 (9.4-12.3) fL Immature Gran % (Auto) 0.4 (0.0-0.4) % Neut % (Auto) 72.6 (45-73) % Lymph % (Auto) 16.4 L (20-40) % [place] % (Auto) 8.1 (2-11) % Eos % (Auto) 2.4 (0-4) % Baso % (Auto) 0.1 (0-2) % Lymph # (Auto) 1.2 (1.2-4.9) X10*3/uL [place] # (Auto) 0.6 (0.1-1.2) X10*3/uL Eos # (Auto) 0.2 (0.0-0.4) X10*3/uL Baso # (Auto) 0.0 (0.0-0.2) X10*3/uL Abs Immat Gran (auto) 0.03 (0.00-0.03) X10*3/uL Absolute Neuts (auto) 5.4 (2.0-8.3) x10*3/uL Absolute Nucleated RBC 0.000 (0.0-0.012) X10*3/uL Nucleated RBC % (auto) 0.0 (0.0-0.2) /100WBC Sodium 136 (135-145) mmol/L Potassium 2.9 L* 3.9 D (3.3-5.1) mmol/L Chloride 99 (96-108) mmol/L Carbon Dioxide 27 (22-29) mmol/L Anion Gap 13 (12-20) BUN 9 (9-16) mg/dL Creatinine 0.94 (0.5-1.4) mg/dL Estim Creat Clear Calc 50.3 Estimated GFR > 60 Random Glucose 349 H (60-115) mg/dL Calcium 9.6 D (8.4-10.2) mg/dL Magnesium 2.0 (1.6-2.6) mg/dL Total Bilirubin 0.4 (0.0-1.0) mg/dL Direct Bilirubin 0.1 (0.0-0.5) mg/dL AST 22 (5-31) U/L ALT 28 (0-31) U/L Alkaline Phosphatase 82 (39-117) U/L Troponin I High Sens 12.8 13.4 (<3.5-17.0) ng/L Total Protein 7.0 (6.5-8.0) g/dL Albumin 4.1 (3.5-5.0) g/dL Lipase 24 (8-78) U/L Urine Color Yellow Urine Appearance Clear Urine pH 7.5 (5.0-9.0) Ur Specific [place] 1.015 (1.005-1.025) Urine Protein Negative (Neg-Trace) mg/dL Urine Glucose (UA) >=1000 H (Negative) mg/dL Urine Ketones Negative (Negative) mg/dL Urine Blood Negative (Negative) Urine Nitrite Negative (Negative) Ur Leukocyte Esterase Negative (Negative) Urine RBC 0-2 (0-2) /HPF Urine WBC 6-10 H (0-5) /HPF Ur Squamous Epith Cells 0-2 (0-2) /HPF Urine Bacteria None Seen (None Seen) Hyaline Casts 0-2 (0-2) /LPF Influenza Type A (PCR) NEGATIVE (Negative) Influenza Type B (PCR) NEGATIVE (Negative) RSV RNA Qual (PCR) NEGATIVE (Negative) SARS-CoV-2 RNA (RT-PCR) NEGATIVE (Negative) External Record Review External record reviewed: Inpatient record, Office record, Outpatient record, Prior outpatient labs, Prior outpatient radiology, Primary care record and Outside ED record Tests considered The following testing was considered but not selected: Labs look good, no abdominal tenderness on exam. No indication for imaging. Patient reports her pain is tolerable. It might be getting better. Chronic Conditions Patient?s care impacted by: Other (see hpi ) Medications Administered Discontinued Medications Generic Name Dose Route Start Last Admin Trade Name Freq PRN Reason Stop Dose Admin Insulin Human Lispro 5 unit 06/18/24 15:00 06/18/24 15:05 Insulin Lispro 100 Unit/Ml 3 Ml Vial SUBCUT 06/18/24 15:01 5 unit ONCE ONE Administration Potassium Chloride 40 meq 06/18/24 14:56 06/18/24 15:01 Potassium Chloride Packet 20 Meq Packet PO 06/18/24 14:57 40 meq ONCE ONE Administration Critical Care Time Critical Care Time Critical Care Time: Yes Total Critical Care Time: 35 Attestation: I attest to this time spent taking care of the patient, obtaining history, physical, reviewing labs, imaging, treatment of patients condition +/- specialist/hospitalist consult Discharge Plan Discharge Clinical Impression: Decreased appetite, Fatigue, Hypokalemia Patient Disposition: Home, Self-Care Instructions: Hypokalemia (ED), Fatigue (ED) Additional Instructions: Take your medications as prescribed. If you were prescribed antibiotics today, it is important that you take your medication to their entirety, do not skip any doses, do not finish them early. Follow-up with your primary care provider this week. Return to the emergency department with new or worsening symptoms. Such as fevers, chills, chest pain, shortness of breath, nausea, vomiting, dizziness, headache, vision changes, lethargy In case of emergency call 911 Please follow-up with your PCP on Thursday, repeat your potassium level to see if it is improving. Prescriptions: No Action pantoprazole 20 mg tablet,delayed release (DR/EC) 20 mg PO BID 14 Days Qty: 28 0RF atorvastatin 80 mg Tablet 80 mg PO QPM lisinopril 20 mg Tablet 20 mg PO DAILY isosorbide mononitrate 30 mg Tablet Extended Release 24 Hr 30 mg PO DAILY aspirin 81 mg Tablet 81 mg PO DAILY fluticasone propion-salmeterol [Advair Diskus] 250-50 mcg/dose blister with device 1 puff inhalation BID loratadine 10 mg tablet 1 tab PO QAM Spiriva with HandiHaler 18 mcg capsule, w/inhalation device 1 cap inhalation DAILY metoprolol succinate 50 mg tablet extended release 24 hr 1 tab PO QAM albuterol sulfate [ProAir HFA] 90 mcg/actuation HFA aerosol inhaler 2 puff inhalation Q4-6H PRN (Reason: Wheezing) Lantus Solostar U-100 Insulin 100 unit/mL (3 mL) insulin pen 10 unit subcut BEDTIME Qty: 0 0RF acetaminophen 500 mg tablet 500 mg PO Q6H PRN (Reason: fever or pain) Qty: 14 0RF ibuprofen 600 mg tablet 600 mg PO TID PRN (Reason: fever or pain) Qty: 14 0RF bismuth subsalicylate 262 mg tablet,chewable 2 tab PO QID (DME) lancets [TRUEplus Lancets] 33 gauge misc See Rx Instructions .ROUTE .MEDSUPPLY Qty: 100 Rx Instructions: As directed insulin lispro 100 unit/mL insulin pen subcut (DME) pen needle, diabetic [Pentips] 32 gauge x 5/32 needle See Rx Instructions .ROUTE QID Qty: 50 Rx Instructions: As directed olanzapine 7.5 mg tablet 7.5 mg PO BEDTIME ferrous sulfate [FeroSul] 325 mg (65 mg iron) tablet 325 mg PO Q OTHER DAY Referrals: Brittnee Hanna MD [Primary Care Provider] - 2 days Print Language: French
--- NOTE | 2024-06-18 12:41 | ECG_ITS ---
Test Reason : WEAKNESS Blood Pressure : / mmHG Vent. Rate : 092 BPM Atrial Rate : 092 BPM P-R Int : 138 ms QRS Dur : 088 ms QT Int : 368 ms P-R-T Axes : 063 -23 007 degrees QTc Int : 455 ms Normal sinus rhythm Nonspecific T wave abnormality Abnormal ECG When compared with ECG of 17-JUN-2024 14:51, No significant change was found Referred By: Gema Sharp Electronically Signed By:GUILLERMO ARMSTRONG
[2024-06-18 12:54] LABS: MANUAL DIFF FLAG NO
[2024-06-18 12:56] LABS: Basophils Percent Auto 0.1 % (0-2); Eosinophils Absolute Auto 0.2 X10*3/uL (0.0-0.4); Eosinophils Percent Auto 2.4 % (0-4); Hematocrit 33.6 % (37.0-47.0); Hemoglobin 11.7 g/dl (12.0-16.0); Imm Gran Abs Auto 0.03 X10*3/uL (0.00-0.03); Imm Gran Pct Auto 0.4 % (0.0-0.4); Lymphocytes Absolute Auto 1.2 X10*3/uL (1.2-4.9); Lymphocytes Percent Auto 16.4 % (20-40); Mean Corpuscular HGB Conc 34.8 g/dl (31.0-35.0); Mean Corpuscular Hemoglobin 29.9 pg (27.0-33.0); Mean Corpuscular Volume 85.9 fL (80.0-98.0); Mean Platelet Volume 10.1 fL (9.4-12.3); Monocytes Absolute Auto 0.6 X10*3/uL (0.1-1.2); Monocytes Percent Auto 8.1 % (2-11); Neutrophils Absolute Auto 5.4 x10*3/uL (2.0-8.3); Neutrophils Percent Auto 72.6 % (45-73); Platelet Count 278 X10*3/uL (160-400); Red Blood Count 3.91 X10*6/uL (4.20-5.50); Red Cell Distribution Width 11.3 % (11.0-16.0); White Blood Count 7.4 X10*3/uL (4.8-10.8)
[2024-06-18 13:18] LABS: Alanine Aminotransferase 28 U/L (0-31); Albumin Level 4.1 g/dL (3.5-5.0); Alkaline Phosphatase 82 U/L (39-117); Anion Gap 13 (12-20); Aspartate Amino Transferase 22 U/L (5-31); Bilirubin Direct 0.1 mg/dL (0.0-0.5); Bilirubin Total 0.4 mg/dL (0.0-1.0); Blood Urea Nitrogen 9 mg/dL (9-16); Calcium 9.6 mg/dL (8.4-10.2); Carbon Dioxide 27 mmol/L (22-29); Chloride 99 mmol/L (96-108); Creatinine Clr Calc Pharmacy 50.3; Estimated Glomerular Filt Rate > 60; Glucose Random 349 mg/dL (60-115); Lipase 24 U/L (8-78); Potassium 2.9 mmol/L (3.3-5.1); Sodium 136 mmol/L (135-145)
[2024-06-18 13:20] LABS: Troponin-I High Sensitivity 12.8 ng/L (<3.5-17.0)
[2024-06-18 13:34] LABS: Influenza A PCR NEGATIVE (Negative); Influenza B PCR NEGATIVE (Negative); Resp Syncy Virus RNA Qual PCR NEGATIVE (Negative); SARS COV2 PCR INHOUSE NEGATIVE (Negative)
[2024-06-18 14:10] VITALS: BP 133/68; PULSE 89; RESP 18; TEMP 36.9; O2SAT 99
[2024-06-18 14:37] LABS: Appearance Urine Clear; Color Urine Yellow; Glucose Urine UA >=1000 mg/dL (Negative); Leukocyte Esterase Urine Negative (Negative); Nitrite Urine Negative (Negative); PH 7.5 (5.0-9.0); Specific Gravity - Urine 1.015 (1.005-1.025); UMIC TRIGGER UACC YES; Urine Blood Negative (Negative); Urine Ketones Negative (Negative); Urine Protein Negative (Neg-Trace)
[2024-06-18 14:39] LABS: Bacteria Urine None Seen (None Seen); Hyaline Casts Urine 0-2 /LPF (0-2); RBC Urine 0-2 /HPF (0-2); Squamous Epithelial Cell Urine 0-2 /HPF (0-2); UACC Culture Trigger YES
[2024-06-18] MEDS: Potassium Chloride Packet 20 MEQ PACKET 40 MEQ PO (15:01)
[2024-06-18] MEDS: Insulin Lispro 100 UNIT/ML 3 ML VIAL SUBCUT (15:05)
--- NOTE | 2024-06-18 15:08 | PC.NURSE ---
pt medicated per MAR- call [facility] within reach
[2024-06-18 15:55] LABS: Potassium 3.9 mmol/L (3.3-5.1)
[2024-06-18 16:08] LABS: Troponin-I High Sensitivity 13.4 ng/L (<3.5-17.0)
[2024-06-18 16:20] VITALS: BP 133/68; PULSE 89; RESP 18; TEMP 36.9; O2SAT 99
== END 2024-06-18 16:30 | disposition home or self-care (01) ==
PROVIDERS: Physician Assistant; Physician Assistant Medical; Emergency Provider Emergency Medicine Emergency Medical Services; PCP Family Medicine
DX: R53.83 Other fatigue (principal); R63.0 Anorexia; Z68.21 Body mass index [BMI] 21.0-21.9, adult; E87.6 Hypokalemia; R53.81 Other malaise; E11.9 Type 2 diabetes mellitus without complications; I10 Essential (primary) hypertension; E78.00 Pure hypercholesterolemia, unspecified; J45.909 Unspecified asthma, uncomplicated; Z03.818 Encounter for observation for suspected exposure to other biological agents ruled out; Z87.891 Personal history of nicotine dependence; Z79.02 Long term (current) use of antithrombotics/antiplatelets; Z79.82 Long term (current) use of aspirin; Z79.899 Other long term (current) drug therapy; Z79.4 Long term (current) use of insulin
CPT/HCPCS: 0241U; 36415; 80048; 80076; 81001; 83690; 83735; 84132; 84484; 85025; 87086; 93005; 99284

== ENCOUNTER → 2024-06-18 12:41 | Outpatient (BNV) | payer MEDICAID, SELFPAY | PROVIDERS: Emergency Provider Emergency Medicine Emergency Medical Services; PCP Family Medicine; Visit Provider Internal Medicine | DX: R94.31 Abnormal electrocardiogram [ECG] [EKG] (principal) | CPT/HCPCS: 93010 ==

== ENCOUNTER 2024-09-19 09:50 | Outpatient (REF) | payer MEDICAID, SELFPAY ==
--- OUTSIDE RECORDS SUMMARY | 2024-09-19 10:24 | XMS_ITS | Clinical Summary ---
Author Organization [employer] Address [address] [place] [address] Care Team Providers Care Phd Internship Name Role Phone Brittnee Hanna MD Primary Care Provider [phone] Tan Mancian OD Unavailable [phone] Allergies Active Allergy Reactions Criticality Noted Date Comments Penicillin V 08/13/2010 Other reaction(s): unspecified Penicillins Hives 03/17/2022 Shellfish-Derived Products Swelling High 0 Other reaction(s): unspecified Medications * This document contains information received from the source organization and may not represent a complete record from that organization. Continuous Blood Gluc Cart Pusher (FreeStyle Ric 2 [place]) device Use as directed 1 each 023 Active insulin lispro (HumaLOG) 100 UNIT/ML injectionIndica tions:Type 2 diabetes mellitus with other circulatory complication, with long-term current use of insulin ([facility]) INJECT SUBCUTANEOUSLY DIRECTED PER SLIDING SCALE: BLOOD SUGAR <150 = 0U, 151-200 = 2U, 201-250 = 4U, 251-300 = 6U, 301-350 = 8U, >350 = 10U AND CALL DOCTOR 15 mL 11 024 Active Continuous Glucose Sensor (FreeStyle Ric 2 Sensor) miscIndications :Type 2 diabetes mellitus with hyperglycemia, with long-term current use of insulin ([facility]/HCC) USE DIRECTED TO TEST BLOOD SUGAR CHANGE EVERY 14 DAYS 2 each 024 Active amLODIPine (Norvasc) 5 MG tabletIndicatio ns:Essential hypertension Take 1 tablet (5 mg) by mouth Once per day. 30 tablet 024 2024 Active atorvastatin (Lipitor) 80 MG tabletIndicatio ns:Type 2 diabetes mellitus with hyperglycemia, with long-term current use of insulin ([facility]),Dysli pidemia Take 1 tablet (80 mg) by mouth at bedtime. 90 tablet Active tiotropium (Spiriva HandiHaler) 18 MCG inhalation capsuleIndicati ons:Chronic obstructive pulmonary disease, unspecified COPD type ([facility]),Mild intermittent asthma without complication Place 1 capsule (18 mcg) into inhaler and inhale in the morning. 30 capsule Active lisinopril 20 MG tabletIndicatio ns:Essential hypertension Take 1 tablet (20 mg) by mouth in the morning. 90 tablet 024 Active isosorbide mononitrate ER (Imdur) 30 MG 24 hr tabletIndicatio ns:Essential hypertension TAKE 1 TABLET BY MOUTH EVERY MORNING 90 tablet 024 Active chlorthalidone (Hygroton) 25 MG tabletIndicatio ns:Essential hypertension Take 1 tab po jin 90 tablet 024 Active TRUEplus Lancets 33G miscIndications :Type 2 diabetes mellitus with hyperglycemia, with long-term current use of insulin ([facility]) TEST BLOOD SUGAR FIVE TIMES DAILY 200 each Active Blood Glucose Monitoring Suppl (FreeStyle [place] Lite) w/Device kitIndications: Type 2 diabetes mellitus with hyperglycemia, with long-term current use of insulin ([facility]) TEST BLOOD SUGAR FIVE TIMES DAILY DIRECTED 1 kit Active OLANZapine (ZyPREXA) 7.5 MG tabletIndicatio ns:Recurrent major depressive disorder, in remission ([facility]) TAKE 1 TABLET BY MOUTH AT BEDTIME 30 tablet Active Advair Diskus 250-50 MCG/ACT aerosol powderIndicatio ns:Mild intermittent asthma without complication INHALE 1 PUFF BY MOUTH TWICE DAILY IN THE MORNING AND IN THE EVENING RINSE MOUTH AFTER USING. 60 each 5 024 Active aspirin (Aspirin Adult Low Strength) 81 MG EC tabletIndicatio ns:Coronary artery stenosis Take 1 tablet (81 mg) by mouth in the morning. 90 tablet 024 Active metoprolol succinate XL (Toprol-XL) 50 MG 24 hr tabletIndicatio ns:Essential hypertension Take 1 tablet (50 mg) by mouth in the morning. Do not crush or chew. 90 tablet 3 024 Active Alcohol Swabs (Alcohol Prep) 70 % padsIndications :Type 2 diabetes mellitus with hyperglycemia, with long-term current use of insulin ([facility]) USE BEFORE TEST BLOOD SUGAR AND INSULIN 100 each 11 024 Active glucose 4 g chewable tabletIndicatio ns:Type 2 diabetes mellitus with hyperglycemia, with long-term current use of insulin ([facility]) Chew 4 tablets (16 g) if needed for low blood sugar. 50 tablet 11 024 Active glucagon (Baqsimi Two Pack) 3 MG/DOSE nasal powderIndicatio ns:Type 2 diabetes mellitus with hyperglycemia, with long-term current use of insulin ([facility]) For low blood sugar emergencies, insert 3mg into one nostril, may repeat the dose if no response after 15 minutes. 1 each 024 Active gabapentin (Neurontin) 100 MG capsuleIndicati ons:Neuropathy Take 1 capsule (100 mg) by mouth 2 times daily. 180 capsule 3 024 2024 Active loratadine (Claritin) 10 MG tabletIndicatio ns:Allergic rhinitis, unspecified seasonality, unspecified trigger TAKE 1 TABLET BY MOUTH EVERY MORNING FOR ALLERGIES 90 tablet 3 Active albuterol (Ventolin HFA) 108 (90 Base) MCG/ACT inhalerIndicati ons:Mild intermittent asthma without complication INHALE 2 PUFFS BY MOUTH EVERY 4 HOURS NEEDED FOR WHEEZING OR SHORTNESS OF BREATH 18 g 1 Active insulin glargine (Lantus SoloStar) 100 UNIT/ML penIndications: Type 2 diabetes mellitus with other circulatory complication, with long-term current use of insulin ([facility]) INJECT 40 UNITS SUBCUTANEOUSLY AT BEDTIME Active glucose blood (FreeStyle Precision Freeman Test) test stripIndication s:Type 2 diabetes mellitus with hyperglycemia, with long-term current use of insulin ([facility]) TEST BLOOD SUGAR UP TO FOUR TIMES DAILY NEEDED 100 strip 11 025 Active Ferrous Sulfate (iron) 325 (65 Fe) MG tabletIndicatio ns:Anemia, unspecified type TAKE 1 TABLET BY MOUTH EVERY OTHER DAY IN THE MORNING 45 tablet 11 025 Active Icosapent Ethyl (Vascepa) 1 g capsuleIndicati ons:Dyslipidemi a TAKE 2 CAPSULES BY MOUTH TWICE DAILY IN THE MORNING AND EVENING 360 capsule 11 025 Active acetone, urine, test stripIndication s:Type 2 diabetes mellitus with hyperglycemia, with long-term current use of insulin (CMS/HCC) Use as directed to check for ketones in the urine as needed 100 each 025 Active doxepin (SINEquan) 10 MG capsule TAKE 1 CAPSULE BY MOUTH AT BEDTIME FOR SLEEP 025 Active prazosin (Minipress) 1 MG capsule TAKE 1 CAPSULE BY MOUTH AT BEDTIME FOR NIGHTMARES 025 Active sertraline (Zoloft) 25 MG tablet Take 1 tablet by mouth once daily Active ARIPiprazole (Abilify) 2 MG tablet Take 1 tablet by mouth at bedtime Active insulin pen needle (Pentips) 32G x 4 mm misc Use as instructed 100 each 025 Active glucose blood (FreeStyle Precision Freeman Test) test stripIndication s:Type 2 diabetes mellitus with hyperglycemia, with long-term current use of insulin ([facility]) Use to test blood sugar up to 4 times daily as needed using freestyle Ric reader 100 each 12 023 2024 Discontinued Pentips 32G X 4 MM misc USE FOUR TIMES DAILY 100 each 11 024 2024 Discontinued(R eorder (will not trigger notification to Pharmacy)) FeroSul 325 (65 Fe) MG tabletIndicatio ns:Anemia, unspecified type TAKE 1 TABLET BY MOUTH EVERY OTHER DAY IN THE MORNING 45 tablet 024 2024 Discontinued Icosapent Ethyl (Vascepa) 1 g capsuleIndicati ons:Dyslipidemi a Take 2 capsules by mouth twice daily 360 capsule 024 2024 Discontinued Active Problems Patient Care Coordination No te Formatting of this note migh t be different from the original. Enrolled in [facility] DM clinic with Di Piers-Gonsalves, PharmD, CDCES Problem Noted Date Diagnosed Date Unintentional weight loss 08/10/2024 Overview (2024): Pt with unintentional weight loss. Differential includes uncontrolled diabetes, neoplasm, GI etiology vs other. Baseline weight was 140 lbs in 2021 Weight 120 lbs 08/21/2024 -TSH 0.62 05/2024 -HIV neg 04/2019 -colonoscopy 2020 but recommended 5 year follow up due to poor prep -CXR 03/19/24 unremarkable -mammo normal BIRADS 1, 07/2023 -referral to GI and Endocrinology placed 09/01/24 Assessment & Plan (2024 2:11 PM EST): Pt with unintentional weight loss. Differential includes uncontrolled diabetes, neoplasm, GI etiology vs other. Baseline weight was 140 lbs in 2021 Weight 120 lbs 08/21/2024 -TSH 0.62 05/2024 -HIV neg 04/2019 -colonoscopy 2020 but recommended 5 year follow up due to poor prep -CXR 03/19/24 unremarkable -mammo normal BIRADS 1, 07/2023 -referral to GI and Endocrinology placed 09/01/24 Colon cancer screening 08/10/2024 Overview (08/10/2024): 2020 polyp=hyperplastic but insuff prep repeat 5 years Neuropathy 07/27/2024 Overview (07/27/2024): Decreased sensation in both feet. Will be following up with orthopedics. - Prescribed gabapentin (Neurontin) 100 MG capsule 07/27/24 Assessment & Plan (07/27/2024 3:10 PM EST): Decreased sensation in both feet. Will be following up with orthopedics. - Prescribed gabapentin (Neurontin) 100 MG capsule 07/27/24 Mild anxiety 04/07/2024 Assessment & Plan (04/14/2024 10:23 AM EDT): During IBH Consult Cynthia presenting with depressed mood, crying spells , hopelessness, irritable mood, loss of interests/pleasure , sense of isolation/loneliness , isolating, changes in sleep difficulty falling asleep and difficulty staying asleep , psychomotor retardation, fatigue/loss of energy, worthlessness, difficulty concentrating and excessive worry/anxiety, difficulty controlling worry, and anxiety/worry associated to easily fatigued , difficulty concentrating and/or mind going blank , and sleep disturbance difficulty falling asleep and difficulty staying asleep ; for a period of 18+ mo, for most or all symptoms in the context of unable to identify significant stressors. Cynthia presented with depressive mood and mild anxiety. Pt reports living with symptoms most part of her life. Not able to identify a particular trigger for symptoms. Lack of family support exacerbates depressive mood. She lives alone and has no social support. clinician engaged patient with active/reflective listening and was provided with a safe space to share her emotions. Reviewed and assessed for risk, stressors and protective factors. Identified coping skills and discussed new strategies to decrease symptoms. Pt prefers to be self-referred for OP and psychiatry services in the [place] area. clinician provided contact information for [facility] and [facility] in [place]. Dizziness 12/30/2023 Overview (12/31/2023): Pt continues to report sever dizziness with associated falls, increasing in frequency and severity over the past year. Exam concerning for cerebellar dysfunction. Differential includes BPV, stroke, tumor vs other. She is high risk for stroke and has known CAD. Less likely hypoglycemia, hypotension, migraine or seizure. CT on brain 2019 was unremarkable but pt was not symptomatic at that time.She had no improvement with meclizine or home exercises for BPV. Given she has have greater than 6 weeks of provider directed treatment without response including meclizine and home exercises. Supported treatments completed with the past three months include drugs dizziness, home exercises, use of a walker. Despite this, upon revaluation, there is no improved symptoms. And she has had an increase in falls. -MRI ordered 12/30/23 to r/o stroke or space occupying lesion -physical therapy for continued exercises fo BPV and gait training Assessment & Plan (12/31/2023 1:03 PM EDT): Pt continues to report sever dizziness with associated falls, increasing in frequency and severity over the past year. Exam concerning for cerebellar dysfunction. Differential includes BPV, stroke, tumor vs other. She is high risk for stroke and has known CAD. Less likely hypoglycemia, hypotension, migraine or seizure. CT on brain 2019 was unremarkable but pt was not symptomatic at that time.She had no improvement with meclizine or home exercises for BPV. Given she has have greater than 6 weeks of provider directed treatment without response including meclizine and home exercises. Supported treatments completed with the past three months include drugs dizziness, home exercises, use of a walker. Despite this, upon revaluation, there is no improved symptoms. And she has had an increase in falls. -MRI ordered 12/30/23 to r/o stroke or space occupying lesion -physical therapy for continued exercises fo BPV and gait training Tobacco abuse 12/30/2023 Overview (07/27/2024): -Cigg/day: Reports no longer smoking -Age started: 28 -Total years smokin -Pack year history: 15 Encouraged smoking cessation resources such as [facility]omtherapy, [facility] smoking cessation group, and [facility] pharmacy smoking cessation clinic Discussed USPSTF recommends annual lung cancer screening with low dose CT in people who meet the following criteria: -ages 50 to 80 years. -have a 20 pack-year smoking history. -currently smoke cigarettes or quit within the past 15 years. -LDCT: NA -chantix restarted 12/31/23 Assessment & Plan (04/07/2024 9:08 AM EDT): -Cigg/day: 1-2 -Age started: 28 -Total years smokin -Pack year history: 15 Encouraged smoking cessation resources such as pharmacomtherapy, [facility] smoking cessation group, and [facility] pharmacy smoking cessation clinic Discussed USPSTF recommends annual lung cancer screening with low dose CT in people who meet the following criteria: -ages 50 to 80 years. -have a 20 pack-year smoking history. -currently smoke cigarettes or quit within the past 15 years. -LDCT: NA -chantix restarted 12/31/23 Assessment & Plan (12/31/2023 1:04 PM EDT): -Cigg/day: 1-2 -Age started: 28 -Total years smokin -Pack year history: 15 Encouraged smoking cessation resources such as pharmacomtherapy, [facility] smoking cessation group, and [facility] pharmacy smoking cessation clinic Discussed USPSTF recommends annual lung cancer screening with low dose CT in people who meet the following criteria: -ages 50 to 80 years. -have a 20 pack-year smoking history. -currently smoke cigarettes or quit within the past 15 years. -LDCT: NA -chantix restarted 12/31/23 Other specified health status 02/18/2023 Overview (07/27/2024): -next physical exam due after 07/27/25 -eye care facilitated by [facility] on 05/20/2023 -dental home is [facility], [facility] -health care proxy filed 04/07/24 Assessment & Plan (07/27/2024 2:57 PM EST): -next physical exam due after 07/27/25 -eye care facilitated by [facility] on 05/20/2023 -dental home is [facility], [facility] -health care proxy filed 04/07/24 Assessment & Plan (04/07/2024 10:24 AM EDT): -next physical exam due after 06/10/2024 -eye care facilitated by [facility] on 05/20/2023 -dental home is [facility], [facility] -health care proxy filed 04/07/24 Assessment & Plan (06/10/2023 2:19 PM EDT): -next physical exam due after 06/10/2024 -eye care facilitated by [facility] on 05/20/2023 -dental home is Anemia 04/01/2022 Overview (06/10/2023): On 01/05 hemoglobin went from 11.7, guaiac was positive. She recieved a transfer. Aspirin and Plavix held. She under went endoscopy but was unable to have colonoscopy due to poor prep. Endoscopy revealed gastritis. Repeat Hgb normal 12.2 05/2022. Ferritin low at 13, start iron qod -Pantoprazole 40mg BID for 3 months. -Call GI for repeat colonoscopy. -Referred to GI 05/16/22. Assessment & Plan (06/10/2023 2:02 PM EDT): On 01/05 hemoglobin went from 11.7, guaiac was positive. She recieved a transfer. Aspirin and Plavix held. She under went endoscopy but was unable to have colonoscopy due to poor prep. Endoscopy revealed gastritis. Repeat Hgb normal 12.2 05/2022. Ferritin low at 13, start iron qod -Pantoprazole 40mg BID for 3 months. -Call GI for repeat colonoscopy. -Referred to GI 05/16/22. Assessment & Plan (02/18/2023 3:39 PM EDT): On 01/05 hemoglobin went from 11.7, guaiac was positive. She recieved a transfer. Aspirin and Plavix held. She under went endoscopy but was unable to have colonoscopy due to poor prep. Endoscopy revealed gastritis. Repeat Hgb normal 12.2 05/2022. Ferritin low at 13, start iron qod -Pantoprazole 40mg BID for 3 months. -Call GI for repeat colonoscopy. -Referred to GI 05/16/22. Assessment & Plan (09/22/2022 9:31 AM EST): On 01/05 hemoglobin went from 11.7, guaiac was positive. She recieved a transfer. Aspirin and Plavix held. She under went endoscopy but was unable to have colonoscopy due to poor prep. Endoscopy revealed gastritis. Repeat Hgb normal 12.2 05/2022. Ferritin low at 13, start iron qod -Pantoprazole 40mg BID for 3 months. -Call GI for repeat colonoscopy. -Referred to GI 05/16/22. Coronary artery stenosis 04/01/2022 Overview (07/27/2024): S/P anterolateral STEMI 04/15/14 requiring PCI with JENISE to proximal LAD with residual thrombus embolized to the distal LAD. Angiogram revealed aneurysmal apex with persistent minimal ST elevation. Echo 04/15/14 revealed LVEF 40-45% with distal anteroseptal and inferoseptal hypokinesis and akinetic apex including distal inferior call. Grade 1 mild diastolic dysfunction. PT had subsequent chest pain and abnormal nuclear stress test leading to cardiac cath 10/08/15 that revealed patient LAD and minimal RCA disease. She did not follow up with cardiology and was discharged in 2017. -Continue ASA 81, plavix 75mg (life long), MTP 50mg XL, atorvastatin 80mg, lisinopril 20 (at night given -poor EF and DM) - Referring to Cardiology 07/27/24 Assessment & Plan (07/27/2024 2:54 PM EST): S/P anterolateral STEMI 04/15/14 requiring PCI with JENISE to proximal LAD with residual thrombus embolized to the distal LAD. Angiogram revealed aneurysmal apex with persistent minimal ST elevation. Echo 04/15/14 revealed LVEF 40-45% with distal anteroseptal and inferoseptal hypokinesis and akinetic apex including distal inferior call. Grade 1 mild diastolic dysfunction. PT had subsequent chest pain and abnormal nuclear stress test leading to cardiac cath 10/08/15 that revealed patient LAD and minimal RCA disease. She did not follow up with cardiology and was discharged in 2017. -Continue ASA 81, plavix 75mg (life long), MTP 50mg XL, atorvastatin 80mg, lisinopril 20 (at night given -poor EF and DM) - Referring to Cardiology 07/27/24 Assessment & Plan (04/07/2024 9:08 AM EDT): S/P anterolateral STEMI 04/15/14 requiring PCI with JENISE to proximal LAD with residual thrombus embolized to the distal LAD. Angiogram revealed aneurysmal apex with persistent minimal ST elevation. Echo 04/15/14 revealed LVEF 40-45% with distal anteroseptal and inferoseptal hypokinesis and akinetic apex including distal inferior call. Grade 1 mild diastolic dysfunction. PT had subsequent chest pain and abnormal nuclear stress test leading to cardiac cath 10/08/15 that revealed patient LAD and minimal RCA disease. She did not follow up with cardiology and was discharged in 2017. -Continue ASA 81, plavix 75mg (life long), MTP 50mg XL, atorvastatin 80mg, lisinopril 20 (at night given -poor EF and DM) Dyslipidemia 04/01/2022 Overview (07/27/2024): Lab Results Component Value Date CHOL 206 (H) 04/05/2024 CHOL 209 (H) 07/21/2023 CHOL 209 (A) 06/05/2022 TRIG 320 (H) 04/05/2024 TRIG 400 (H) 07/21/2023 TRIG 163 (A) 06/05/2022 HDL 57 04/05/2024 HDL 43 07/21/2023 HDL 70 06/05/2022 LDLCHOLCAL 85 04/05/2024 LDLCHOLCAL TNP 07/21/2023 LDL 111 06/05/2022 -continue lifestyle modification -continue atorvastatin 80mg at bedtime -Vacepa started 04/27/24 - Prescribed Icosapent Ethyl (Vascepa) 1 g capsule 07/27/24 Assessment & Plan (07/27/2024 2:55 PM EST): Lab Results Component Value Date CHOL 206 (H) 04/05/2024 CHOL 209 (H) 07/21/2023 CHOL 209 (A) 06/05/2022 TRIG 320 (H) 04/05/2024 TRIG 400 (H) 07/21/2023 TRIG 163 (A) 06/05/2022 HDL 57 04/05/2024 HDL 43 07/21/2023 HDL 70 06/05/2022 LDLCHOLCAL 85 04/05/2024 LDLCHOLCAL TNP 07/21/2023 LDL 111 06/05/2022 -continue lifestyle modification -continue atorvastatin 80mg at bedtime -Vacepa started 04/27/24 - Prescribed Icosapent Ethyl (Vascepa) 1 g capsule 07/27/24 Assessment & Plan (04/07/2024 9:06 AM EDT): Lab Results Component Value Date CHOL 206 (H) 04/05/2024 CHOL 209 (H) 07/21/2023 CHOL 209 (A) 06/05/2022 TRIG 320 (H) 04/05/2024 TRIG 400 (H) 07/21/2023 TRIG 163 (A) 06/05/2022 HDL 57 04/05/2024 HDL 43 07/21/2023 HDL 70 06/05/2022 LDLCHOLCAL 85 04/05/2024 LDLCHOLCAL TNP 07/21/2023 LDL 111 06/05/2022 -continue lifestyle modification -continue atorvastatin 80mg qhs Assessment & Plan (12/31/2023 12:54 PM EDT): Lab Results Component Value Date CHOLESTEROL 209 (H) 06/05/2022 LDLCHOL 111 (H) 06/05/2022 LDLCHOL 105 (H) 02/10/2020 LDLCHOL 105 (H) 02/10/2020 TRIG 400 (H) 07/21/2023 TRIG 163 (A) 06/05/2022 HDLCHOL 70 06/05/2022 CHOLHDLRAT 3.0 06/05/2022 -continue lifestyle modifications -continue atorvastatin 80mg qhs Assessment & Plan (06/10/2023 2:05 PM EDT): Lab Results Component Value Date CHOLESTEROL 209 (H) 06/05/2022 LDLCHOL 111 (H) 06/05/2022 LDLCHOL 105 (H) 02/10/2020 LDLCHOL 105 (H) 02/10/2020 TRIG 163 (A) 06/05/2022 HDLCHOL 70 06/05/2022 CHOLHDLRAT 3.0 06/05/2022 -continue lifestyle modifications -continue atorvastatin 80mg qhs Assessment & Plan (02/18/2023 3:50 PM EDT): Lab Results Component Value Date CHOLESTEROL 209 (H) 06/05/2022 LDLCHOL 111 (H) 06/05/2022 LDLCHOL 105 (H) 02/10/2020 LDLCHOL 105 (H) 02/10/2020 TRIG 163 (A) 06/05/2022 HDLCHOL 70 06/05/2022 CHOLHDLRAT 3.0 06/05/2022 -continue lifestyle modifications -continue atorvastatin 80mg qhs Assessment & Plan (09/22/2022 9:32 AM EST): LDL was 105, triglycerides were 214 and HCl was 67 on 02/10/2020. -continue atorvastatin 80mg qhs Essential hypertension 06/11/2015 Overview (04/07/2024): Currently at goal -Continue lisinopril 20mg -Continue isosorbide 30mg -Continue chlorthalidone 25mg -Continue metoprolol 50mg Assessment & Plan (04/07/2024 9:07 AM EDT): Currently at goal -Continue lisinopril 20mg -Continue isosorbide 30mg -Continue chlorthalidone 25mg -Continue metoprolol 50mg Assessment & Plan (12/31/2023 12:56 PM EDT): Currently at goal -Continue lisinopril 20mg. -Continue isosorbide 30mg -Continue chlorthalidone 25mg. -Continue metoprolol 50mg. Assessment & Plan (10/14/2023 4:17 PM EST): -Not controlled -Continue lisinopril 20mg. -Continue isosorbide 30mg -Continue chlorthalidone 50mg. -Continue metoprolol 50mg. Assessment & Plan (06/10/2023 2:05 PM EDT): -Not controlled -Continue lisinopril 20mg. -Continue isosorbide 30mg -Continue chlorthalidone 50mg. -Continue metoprolol 50mg. Assessment & Plan (02/18/2023 3:41 PM EDT): -Not controlled -Continue lisinopril 20mg. -Continue isosorbide 30mg -Continue chlorthalidone 50mg. -Continue metoprolol 50mg. Assessment & Plan (12/18/2022 2:00 PM EDT): -Not controlled -Continue lisinopril 20mg. -Continue isosorbide 30mg -Continue chlorthalidone 50mg. -Continue metoprolol 50mg. Assessment & Plan (09/22/2022 10:11 AM EST): -not controlled -does not take meds before visits -[facility] referral Disorder of cardiovascular system 05/03/2014 Overview (09/22/2022): S/P anterolateral STEMI 04/15/14 requiring PCI with JENISE to proximal LAD with residual thrombus embolized to the distal LAD. Angiogram revealed aneurysmal apex with persistent minimal ST elevation. Echo 04/15/14 revealed LVEF 40-45% with distal anteroseptal and inferoseptal hypokinesis and akinetic apex including distal inferior call. Grade 1 mild diastolic dysfunction. PT had subsequent chest pain and abnormal nuclear stress test leading to cardiac cath 10/08/15 that revealed patient LAD and minimal RCA disease. She did not follow up with cardiology and was discharged in 2017. -Continue ASA 81, plavix 75mg (life long), MTP 50mg XL, atorvastatin 80mg, lisinopril 20 (at night given -poor EF and DM) Assessment & Plan (06/10/2023 2:04 PM EDT): S/P anterolateral STEMI 04/15/14 requiring PCI with JENISE to proximal LAD with residual thrombus embolized to the distal LAD. Angiogram revealed aneurysmal apex with persistent minimal ST elevation. Echo 04/15/14 revealed LVEF 40-45% with distal anteroseptal and inferoseptal hypokinesis and akinetic apex including distal inferior call. Grade 1 mild diastolic dysfunction. PT had subsequent chest pain and abnormal nuclear stress test leading to cardiac cath 10/08/15 that revealed patient LAD and minimal RCA disease. She did not follow up with cardiology and was discharged in 2017. -Continue ASA 81, plavix 75mg (life long), MTP 50mg XL, atorvastatin 80mg, lisinopril 20 (at night given -poor EF and DM) Assessment & Plan (02/18/2023 3:41 PM EDT): S/P anterolateral STEMI 04/15/14 requiring PCI with JENISE to proximal LAD with residual thrombus embolized to the distal LAD. Angiogram revealed aneurysmal apex with persistent minimal ST elevation. Echo 04/15/14 revealed LVEF 40-45% with distal anteroseptal and inferoseptal hypokinesis and akinetic apex including distal inferior call. Grade 1 mild diastolic dysfunction. PT had subsequent chest pain and abnormal nuclear stress test leading to cardiac cath 10/08/15 that revealed patient LAD and minimal RCA disease. She did not follow up with cardiology and was discharged in 2017. -Continue ASA 81, plavix 75mg (life long), MTP 50mg XL, atorvastatin 80mg, lisinopril 20 (at night given -poor EF and DM) Assessment & Plan (02/13/2023 9:05 AM EDT): -EKG with non-specific T-wave inversions in leads V3, V4, V5 -Pt denies any chest pain or SOB -Discussed presentation to ED for further eval, pt declines. Reviewed strict ED precautions. -Referral to re-establish with [facility] placed Assessment & Plan (09/22/2022 9:32 AM EST): S/P anterolateral STEMI 04/15/14 requiring PCI with JENISE to proximal LAD with residual thrombus embolized to the distal LAD. Angiogram revealed aneurysmal apex with persistent minimal ST elevation. Echo 04/15/14 revealed LVEF 40-45% with distal anteroseptal and inferoseptal hypokinesis and akinetic apex including distal inferior call. Grade 1 mild diastolic dysfunction. PT had subsequent chest pain and abnormal nuclear stress test leading to cardiac cath 10/08/15 that revealed patient LAD and minimal RCA disease. She did not follow up with cardiology and was discharged in 2017. -Continue ASA 81, plavix 75mg (life long), MTP 50mg XL, atorvastatin 80mg, lisinopril 20 (at night given -poor EF and DM) Asthma-COPD overlap syndrome 01/30/2014 Overview (04/07/2024): -On Advair and Spiriva with questionable compliance. Uses her albuterol regularly. Assessment & Plan (04/07/2024 9:06 AM EDT): -On Advair and Spiriva with questionable compliance. Uses her albuterol regularly. Assessment & Plan (12/31/2023 12:57 PM EDT): -On Advair and Spiriva with questionable compliance. Uses her albuterol regularly. Assessment & Plan (06/10/2023 2:02 PM EDT): -On Advair and Spiriva with questionable compliance. Uses her albuterol regularly. Assessment & Plan (02/18/2023 3:39 PM EDT): -On Advair and Spiriva with questionable compliance. Uses her albuterol regularly. Assessment & Plan (09/22/2022 10:11 AM EST): -On Advair and Spiriva with questionable compliance. Uses her albuterol regularly. Elevated levels of transaminase & lactic acid de hydrogenase 01/30/2014 Obesity 01/30/2014 Chronic kidney disease, stage III (moderate) Chronic sinusitis 09/13/2012 Depressive disorder 04/21/2012 Assessment & Plan (04/14/2024 10:23 AM EDT): During IBH Consult Cynthia presenting with depressed mood, crying spells , hopelessness, irritable mood, loss of interests/pleasure , sense of isolation/loneliness , isolating, changes in sleep difficulty falling asleep and difficulty staying asleep , psychomotor retardation, fatigue/loss of energy, worthlessness, difficulty concentrating and excessive worry/anxiety, difficulty controlling worry, and anxiety/worry associated to easily fatigued , difficulty concentrating and/or mind going blank , and sleep disturbance difficulty falling asleep and difficulty staying asleep ; for a period of 18+ mo, for most or all symptoms in the context of unable to identify significant stressors. Cynthia presented with depressive mood and mild anxiety. Pt reports living with symptoms most part of her life. Not able to identify a particular trigger for symptoms. Lack of family support exacerbates depressive mood. She lives alone and has no social support. clinician engaged patient with active/reflective listening and was provided with a safe space to share her emotions. Reviewed and assessed for risk, stressors and protective factors. Identified coping skills and discussed new strategies to decrease symptoms. Pt prefers to be self-referred for OP and psychiatry services in the [place] area. clinician provided contact information for [facility] and [facility] in [place]. Assessment & Plan (01/08/2023 10:29 AM EDT): Assessment: ?? Patient with feeling down/depressed, little interest in doing things, trouble falling asleep, poor appetite, feeling bad about herself, and inability to focus. She also presents with feeling anxious/nervous, unable to stop worrying about many things, trouble relaxing, restlessness, and easily irritated. This is in the context of chronic depression and anxiety as patient has her basic needs met (food, housing, finance) and symptoms are not contributed by external factor at this time. Patient will benefit from OP therapy to address depression and anxiety. She would also benefit from psychopharmacology service to help stabilize symptoms. ?? At this time Cynthia Okeefe meets criteria for Visit Diagnoses: Problem List Items Addressed This Visit ? Other ?? Depressive disorder ?? Patient ready to address current needs Yes ?? Strengths include reaching out to be connected to behavioral health services. ?? PLAN: 1. Follow up with [facility]: Not recommended for follow-up 2. Patient goal is to engage in behavioral health services. 3. Behavioral Recommendations a. Practice using a different coping skill on a daily basis b. Once services are established, attend therapy and medication management appointments c. Patient will reach out to a [facility] during next PCP appointment if needed Assessment & Plan (07/22/2022 2:55 PM EST): Most likely exacerbated by lack of meds >1m. Called pharmacy and verify med dose, sent Rx for Olanzapine 7.5mg I will email [facility] to make an appt with Dr Quinn and assign therapist if needed. Patient feels safe at home, she doesn't have a suidial paln and is able to contract for safety. She has crisis number and knows to reach out to us PRN Counseled to avid drugs or ETOH Generalized headache 04/21/2012 Type 2 diabetes mellitus wit h hyperglycemia, with long-term current use of insulin 03/25/2012 Overview (2024): Diabetes is not controlled. Diabetes is followed with pharmacy [facility] by Dr. Di Hyde PharmD. Note addend 09/01/23 after pharmacy visit and review of CGM with sugars regular > 400. Lab Results Component Value Date HGBA1C 12.6 (A) 04/07/2024 HGBA1C 12.2 (A) 12/30/2023 HGBA1C 9.8 (A) 06/10/2023 Lab Results Component Value Date MICROALBUR 46.0 07/21/2023 CREATININE 1.16 03/19/2024 -On Asprin 81 daily for secondary prevention CAD -Sam/Arb: lisinopril 20mg -Statin therapy: atorvastatin 80mg -Diabetic eye exam: Reffered to optometry 02/11/23. -Diabetic foot exam: 07/27/24 -Continue lifestyle modifications -reviewed she should be using Lantus 36 units daily, she agrees -continue sliding scale - Ordered Albumin, Random Urine W/Creatinine 07/27/24 - Ordered Basic Metabolic Panel 07/27/24 - Referral to Cardiology 07/27/24 -referral to endocrinology 09/01/24 Assessment & Plan (2024 2:13 PM EST): Diabetes is not controlled. Diabetes is followed with pharmacy [facility] by Dr. Di Hyde PharmD. Note addend 09/01/23 after pharmacy visit and review of CGM with sugars regular > 400. Lab Results Component Value Date HGBA1C 12.6 (A) 04/07/2024 HGBA1C 12.2 (A) 12/30/2023 HGBA1C 9.8 (A) 06/10/2023 Lab Results Component Value Date MICROALBUR 46.0 07/21/2023 CREATININE 1.16 03/19/2024 -On Asprin 81 daily for secondary prevention CAD -Sam/Arb: lisinopril 20mg -Statin therapy: atorvastatin 80mg -Diabetic eye exam: Reffered to optometry 02/11/23. -Diabetic foot exam: 07/27/24 -Continue lifestyle modifications -reviewed she should be using Lantus 36 units daily, she agrees -continue sliding scale - Ordered Albumin, Random Urine W/Creatinine 07/27/24 - Ordered Basic Metabolic Panel 07/27/24 - Referral to Cardiology 07/27/24 -referral to endocrinology 09/01/24 Assessment & Plan (04/07/2024 10:27 AM EDT): Diabetes is not controlled. Diabetes is followed with pharmacy [facility] by Dr. Di Hyde PharmD. Has continuous glucose monitor. Needs sensors. She did not last picker but will this week. Lab Results Component Value Date HGBA1C 12.6 (A) 04/07/2024 HGBA1C 12.2 (A) 12/30/2023 HGBA1C 9.8 (A) 06/10/2023 Lab Results Component Value Date MICROALBUR 46.0 07/21/2023 CREATININE 1.16 03/19/2024 -On Asprin 81 daily for secondary prevention CAD -Sam/Arb: lisinopril 20mg -Statin therapy: atorvastatin 80mg -Diabetic eye exam: Reffered to optometry 02/11/23. -Diabetic foot exam: 04/07/24 -Continue lifestyle modifications -reviewed she should be using Lantus 36 units daily, she agrees -continue sliding scale Assessment & Plan (12/31/2023 12:54 PM EDT): Diabetes is not controlled. Diabetes is followed with pharmacy [facility] by Dr. Di Hyde PharmD. Has continuous glucose monitor. Lab Results Component Value Date HGBA1C 12.2 (A) 12/30/2023 HGBA1C 9.8 (A) 06/10/2023 HGBA1C 9.4 (A) 06/03/2023 Lab Results Component Value Date MICROALBUR 46.0 07/21/2023 CREATININE 0.84 01/14/2023 -On Asprin 81 daily for secondary prevention CAD -Sam/Arb: lisinopril 20mg -Statin therapy: atorvastatin 80mg -Diabetic eye exam: Reffered to optometry 02/11/23. -Diabetic foot exam: -Continue lifestyle modifications -Continue current medications agrees to Collaborative Drug Therapy Managment Program with our PharmD next week Assessment & Plan (10/14/2023 4:25 PM EST): Diabetes is not controlled. -Pt is followed by CD[facility]. Lab Results Component Value Date HGBA1C 9.8 (A) 06/10/2023 HGBA1C 9.4 (A) 06/03/2023 HGBA1C 11.5 (H) 01/14/2023 - Lab Results Component Value Date MICROALBUR 46.0 07/21/2023 CREATININE 0.84 01/14/2023 -On Asprin 81 daily. -Changes: none -Sam/Arb: lisinopril 20mg -Statin therapy: atorvastatin 80mg -On Asprin 81 daily. -Diabetic eye exam: Reffered to optometry 02/11/23. -Diabetic foot exam: -Continue lifestyle modifications -Continue current medications -Continue Lantus. -Continue Humalog. -Has continuous glucose monitor and agrees to come in and have her sensor checked 10/14/2023 Assessment & Plan (06/10/2023 2:04 PM EDT): Diabetes is controlled. -Pt is followed by CDTM Lab Results Component Value Date HGBA1C 9.4 (A) 06/03/2023 HGBA1C 11.5 (H) 01/14/2023 HGBA1C 11.7 (A) 09/22/2022 -No results found for: POCA1C - Lab Results Component Value Date MICROALBUR 6.7 06/05/2022 CREATININE 0.84 01/14/2023 -On Asprin 81 daily. -Changes: none -Sam/Arb: lisinopril 20mg -Statin therapy: atorvastatin 80mg -On Asprin 81 daily. -Diabetic eye exam: Reffered to optometry 02/11/23. -Diabetic foot exam: -Continue lifestyle modifications -Continue current medications -Continue Lantus. -Continue Humalog. Assessment & Plan (02/18/2023 3:49 PM EDT): Diabetes is not controlled. -Pt is followed by CD. Lab Results Component Value Date HGBA1C 11.5 (H) 01/14/2023 HGBA1C 11.7 (A) 09/22/2022 HGBA1C 9.6 (H) 06/05/2022 - Lab Results Component Value Date MICROALBUR 6.7 06/05/2022 CREATININE 0.84 01/14/2023 -On Asprin 81 daily. -Changes: none -Sam/Arb: -Statin therapy: atorvastatin 80mg -On Aspirn 81 daily. -Diabetic eye exam:Reffered to optometry 02/11/23. -Diabetic foot exam: -Continue lifestyle modifications -Continue current medications -Continue Lantus. -Continue Humalog. Assessment & Plan (12/18/2022 1:56 PM EDT): Diabetes is not controlled. - Lab Results Component Value Date HGBA1C 11.7 (A) 09/22/2022 HGBA1C 9.6 (H) 06/05/2022 HGBA1C 8.5 (H) 02/10/2020 HGBA1C 8.5 (H) 02/10/2020 - Lab Results Component Value Date MICROALBUR 6.7 06/05/2022 CREATININE 1.0 06/05/2022 -Continue Lantus. -Continue Humalog. -I believe she would benefit from a GLP-1 but I would like her to be seen by [facility]. -On Asprin 81 daily. -Changes: -Sam/Arb: -Statin therapy: -Diabetic eye exam: -Diabetic foot exam: -Continue lifestyle modifications -Continue current medications Resolved Problems Problem Noted Date Diagnosed Date Resolved Date Diabetes due to underlying c ondition w oth circulatory comp 12/31/2023 07/26/2024 Moderate episode of recurren t major depressive disorder 12/30/2023 04/07/2024 History of diabetic ketoacidosis 02/18/2023 12/31/2023 Overview (02/18/2023): Admitted 03/17/22 for DKA in the setting of acute cystitis. Assessment & Plan (06/10/2023 2:06 PM EDT): Admitted 03/17/22 for DKA in the setting of acute cystitis Assessment & Plan (02/18/2023 3:53 PM EDT): Admitted 03/17/22 for DKA in the setting of acute cystitis. Great toe pain, right 12/18/20222023 Overview (12/18/2022): Treated for cellulitis residual acting in joints, differential include Gout. -Will check uric acids. Assessment & Plan (06/10/2023 2:05 PM EDT): Treated for cellulitis residual acting in joints, differential include Gout. -Will check uric acids. Assessment & Plan (02/18/2023 3:41 PM EDT): Treated for cellulitis residual acting in joints, differential include Gout. -Will check uric acids. Assessment & Plan (12/18/2022 2:30 PM EDT): Treated for cellulitis residual acting in joints, differential include Gout. -Will check uric acids. Uncontrolled hypertension 11/17/2022 Assessment & Plan (11/17/2022 2:47 PM EDT): - Aerobic exercise to reduce BP. Initial goal of 30 min walk 3-5x/week. Increase as tolerated. - low-sodium diet (goal: <2g/day) and heart healthy diet such as DASH to reduce BP and prevent ASCVD. - Home BP monitoring 1-2 x day with goal of <140/90. - Seek immediate medical attention for chest pain, palpitations, SOB, syncope, or sudden changes in mental status. -Physical exam was benign, no focalizations or alarm symptoms -I will treat in office with clonidine -I will add to her medication regimen chlorthalidone 50mg daily RTC with nurse 1 week then with PCP in 1 month Occult blood in stools 07/22/202207/26 Recurrent major depressive d isorder, in remission 07/22/2022 07/22/2022 Diabetic ketoacidosis withou t coma associated with type 2 diabetes mellitus 03/17/2022 02/18/2023 Overview (02/18/2023): The patient is a 57 y.o. female admitted on 03/17/2022 for DKA (diabetic ketoacidosis) (CMS/HCC) [E11.10];Acute cystitis without hematuria [N30.00] Results: Results Units 03/17/22 1041 HGB-A1C % 12.5 H Results Units 03/17/22 1041 03/18/22 0441 BETA HYDROXYBUTYRATE mg/dL >60.0 H 4.1 H Outpatient history: ?? Follows: PCP ?? Seen ~last month ?? History: T2DM (>10yrs) ?? Home regimen: ?? Lantus (Per patient) ?? 10 units at night ?? 10 units with meals Hospital Course / Interval History ?? Admitted: 03/17/2022 ?? DKA ?? Hyperglycemia / GMA / elevated BHB ?? Insulin gtt ?? 03/18/2022: Transitioned to MDI therapy Recommendations: ?? A1c elevated ?? 2nd to Non-compliance ?? Blood sugars improved but remain slightly elevated ?? Insulin therapy / Adjustments: ?? Increase Lantus to 30 units ?? Increase Humalog to 10 units with meals ?? Cont Mod dose HISS q ac/hs ?? Hypoglycemia per protocol ?? Ok for discharge home on current regimen ?? Follow up PCP 1 - 2 [place] Assessment & Plan (02/18/2023 3:41 PM EDT): The patient is a 57 y.o. female admitted on 03/17/2022 for DKA (diabetic ketoacidosis) ([facility]) [E11.10];Acute cystitis without hematuria [N30.00] Results: Results Units 03/17/22 1041 HGB-A1C % 12.5 H Results Units 03/17/22 1041 03/18/22 0441 BETA HYDROXYBUTYRATE mg/dL >60.0 H 4.1 H Outpatient history: ?? Follows: PCP ?? Seen ~last month ?? History: T2DM (>10yrs) ?? Home regimen: ?? Lantus (Per patient) ?? 10 units at night ?? 10 units with meals Hospital Course / Interval History ?? Admitted: 03/17/2022 ?? DKA ?? Hyperglycemia / GMA / elevated BHB ?? Insulin gtt ?? 03/18/2022: Transitioned to MDI therapy Recommendations: ?? A1c elevated ?? 2nd to Non-compliance ?? Blood sugars improved but remain slightly elevated ?? Insulin therapy / Adjustments: ?? Increase Lantus to 30 units ?? Increase Humalog to 10 units with meals ?? Cont Mod dose HISS q ac/hs ?? Hypoglycemia per protocol ?? Ok for discharge home on current regimen ?? Follow up PCP 1 - 2 weeks as [place] Hypercalcemia 03/17/2022 06/10/2023 Overview (02/18/2023): Suspect due to volume contraction Given IV fluids resolved Assessment & Plan (02/18/2023 3:42 PM EDT): Suspect due to volume contraction Given IV fluids resolved Hyperkalemia 03/17/2022 06/10/2023 Overview (02/18/2023): - due to acidosis - resolved Assessment & Plan (02/18/2023 3:41 PM EDT): - due to acidosis - resolved Metabolic acidosis due to diabetes mellitus 03/17/2022 06/10/2023 UTI (urinary tract infection) 03/17/2022 06/10/2023 Overview (02/18/2023): - continue IV Levaquin - follow up urine culture - supportive care Assessment & Plan (02/18/2023 3:42 PM EDT): - continue IV Levaquin - follow up urine culture - supportive care Mild intermittent asthma 05/18/2017 Overview (06/10/2023): -On Advair and Spiriva with questionable compliance. Uses her albuterol regularly. Assessment & Plan (10/14/2023 4:17 PM EST): -On Advair and Spiriva with questionable compliance. Uses her albuterol regularly. Assessment & Plan (06/10/2023 2:05 PM EDT): -On Advair and Spiriva with questionable compliance. Uses her albuterol regularly. Assessment & Plan (02/18/2023 3:42 PM EDT): -On Advair and Spiriva with questionable compliance. Uses her albuterol regularly. Assessment & Plan (09/22/2022 10:10 AM EST): -On Advair and Spiriva with questionable compliance. Uses her albuterol regularly. Assessment & Plan (07/22/2022 2:56 PM EST): Refill for proair requested By patient sent to pharmacy No respiratory sxs voiced today. Pain in upper limb 08/11/2013 Kidney disease 09/13/2012 04/07/2024 Noncompliance with treatment 09/13/2012 04/07/2024 Hypercholesterolemia 04/21/2012 023 Hypertension 03/25/2012 09/22/2022 Overview (09/19/2022): Last Assessment & Plan: - running high - need to clarify home medication list - prn IV hydralazine for now Encounters Date Type Department Care Team Description 09/12/2024 Refill [facility] PEDS [address] [place], [place] [id number] Brittnee Hanna MD 09/07/2024 Orders Only [facility] MEDICINE [address] [place] [address] Brittnee Hanan MD Type 2 diabetes mellitus with hyperglycemia, with long-term current use of insulin ([facility]) (Primary Dx); Unintentional weight loss 09/07/2024 Telephone [facility] MEDICINE [address] [place] [address] Di Hyde, PharmD Appointment Request 08/31/2024 Travel 08/25/2024 Refill [facility] MEDICINE [address] [place] [address] Brittnee Hanna MD Type 2 diabetes mellitus with hyperglycemia, with long-term current use of insulin ([facility]); Anemia, unspecified type; Dyslipidemia 08/10/2024 Telephone [facility] MEDICINE [address] [place] [address] Brittnee Hanna MD Appointment scheduling 08/05/2024 Travel 07/28/2024 Refill [facility] MEDICINE [address] [place] [address] Jaquelin Chung MD Mild intermittent asthma without complication 07/28/2024 [facility] [address] Brittnee Hanna MD Allergic rhinitis, unspecified seasonality, unspecified trigger; Mild intermittent asthma without complication 07/27/2024 2:15 PM EST Office Visit [facility] [place] [address] Brittnee Hanna MD Type 2 diabetes mellitus with hyperglycemia, with long-term current use of insulin ([facility]) (Primary Dx); Unintentional weight loss; Dyslipidemia; Neuropathy; Encounter for immunization; Coronary artery stenosis; Tobacco abuse; Other specified health status 07/27/2024 Travel 07/18/2024 Patient Outreach [address] [address] Brittnee Hanna MD Pre-visit Planning ([facility] screening was completed on 12/30/2023) 07/18/[address] [address] Brittnee Hanna MD Appointment Request 07/01/2024 Refill [facility] MEDICINE [address] [place] [id number] Brittnee Hanna MD Anemia, unspecified type 06/24/[address] [phone] Milvia Jung [place] Follow-up 06/23/[address] [address] Brittnee Hanna MD 06/23/2024 Orders Only [facility] MEDICINE [address] [place] [id number] Brittnee Hanna MD 06/20/2024 Patient Outreach [address] [address] 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 marin fied surface antigen) 05/12/2013,05/24/2012 Influenza, seasonal, injecta ble, preservative free 07/27/2024 Pfizer Covid-19 Vaccine 12+ 05/08/2021 Pfizer Covid-19 Vaccine 12+ Bivalent 09/04/2022 Pfizer Covid-19 Vaccine 12+ gauri-sucrose (Flores Cap) 05/16/2022 Pneumococcal Conjugate PCV 20 09/22/2022 Pneumococcal Polysaccharide PPSV23 06/20/2015, TD (adult), 2 Lf tetanus tox oid, preservative free, adsorbed 03/23/2006 Td (adult), 5 Lf tetanus tox oid, preservative free, adsorbed 11/08/2013 Tdap 12/30/2023,05/24/2012 Family History Medical History Relation Name Comments Diabetes Brother Diabetes Father Diabetes Mother Relation Name Status Comments Brother Father Mother Social History Tobacco Use Types Packs/Day Years Used Date Smoking Tobacco: Former Cigarettes Passive Smoke Exposure: Current Smokeless Tobacco: Never Depression Answer Date Recorded Patient Health Questionnaire-9 Score 15 04/07/2024 Patient Health Questionnaire-9 Score 15 04/07/2024 Last PHQ-9: Questionnaire Data Not on file 0 04/07/2024 Housing Stability Answer Date Recorded What is your housing situation today? I have francisco jones 12/30/[address] you li ve. Do you have problems with any of the following? None of the above 12/30/2023 Food Insecurity Answer Date Recorded Within the past 12 months, y ou worried that your food would run out before you got money to buy more: Never True 12/30/2023 Within the past 12 months,th e food you bought just didn't last and you didn't have enough money to get more: Never True Transportation Answer Date Recorded In the past 12 months, has l ack of transportation kept you from medical appts, meetings, work or from getting things needed for daily living? No 12/30/2023 Utilities Answer Date Recorded In the past 12 months, has t he electric, gas, oil or water company threatened to shut off services in your home? No 12/30/2023 Depression Answer Date Recorded Patient Health Questionnaire-2 Score 4 04/07/2024 Internet Access Answer Date Recorded Internet Access Q1 Yes 07/18/2024 Internet Access Q2 Not on file 07/18/2024 Comments Unknown Sex and Gender Information Value Date Recorded Sex Assigned at Female 06/16/2022 10:18 AM EDT Legal Sex Female 10:18 AM EDT Gender Identity Female 06/16/2022 10:18 AM EDT Sexual Orientation Straight 06/16/2022 10 :18 AM EDT Last Filed Vital Signs Vital Sign Reading Time Taken Comments Blood Pressure 112/58 08/31/2024 3:02 PM EST Pulse 90 08/31/2024 3:02 PM EST Temperature 36.2 ??C (97.1 ??F) 07/27/2024 2:27 PM ES T Respiratory Rate 20 07/27/2024 2:27 PM EST Oxygen Saturation 100% 07/27/2024 2:27 PM EST Inhaled Oxygen Concentration - - Weight 54.5 kg (120 lb 3.2 oz) 08/31/2024 3:02 P M EST Height 157.5 cm (5' 2 ) 07/27/2024 2:27 PM EST Body Mass Index 21.98 07/27/2024 2:27 PM EST Plan of Treatment Upcoming Encounters Date Type Department Care Team (Late st Contact Info) Description 09/21/2024 3:30 PM EST Office Visit [facility] MEDICINE [address] [place] [address] Brittnee Hanna MD [address] [place] [address] 11/07/2024 1:00 PM EDT Office Visit [facility] OPTOMETRY [address] [place] [address] Martina Mancia OD [address] [place] [address] Health Maintenance Due Date Last Done Comments CT Colonography 1965 FIT DNA/Cologuard 1965 FIT 1965 FOBT 1965 Sigmoidoscopy 1965 Zoster Vaccines (1 of 2) 2013 RSV Patients and Patients Aged 60 years or older (1 - Risk 60-74 years 1-dose series) 2023 Diabetes: Urine Protein Screening 07/21/2024 07/21/2023, 06/05/2022, 02/10/2020 Depression Monitoring (PHQ-9) 10/08/2024 04/07/2024, 04/07/2024 Diabetes: Hemoglobin A1C 10/25/2024 024, 04/07/2024, 12/30/2023, Additional history exists SDOH Screening 12/29/2024 12/30/2023 Lipid Panel 04/05/2025 04/05/2024, 12/2022, 06/05/2022, Additional history exists Depression Screening 04/07/2025 04/07/2024, 04/07/20 Eye Exam 05/20/2025 05/20/2023, 11/2022, 05/20/2023, Additional history exists Mammogram 07/24/2025 07/24/2023, 05/18, 06/14/2018 Alcohol/Substance Use Screening 07/27/2025 07/27/2024 COVID-19 Vaccine ( season) 2025 09/04/2022, 05/16/2022, 05/08/2021 Postponed from 04/17/2024 (Patient Refused) Diabetes: Foot Exam 07/27/2025 07/27/2024, 07/27/2024, 07/27/2024, Additional history exists Tobacco Screening 07/27/2025 07/27/2024 Cervical Cancer Screening 05/16/2027 HPV/Cotest 05/16/2027 05/16/2022 Pap Smear 05/16/2027 05/16/2022, 05/16/2022 Colonoscopy 08/21/2030 08/21/2020 Colorectal Cancer Screening 08/21/2030 DTaP/Tdap/Td Vaccines (4 - Td or Tdap) 12/29/2033 12/30/2023, 11/08/2013, 05/24/2012, Additional history exists Hepatitis C Screening Completed 02/22/2014 Hepatitis B Vaccines Completed 10/22/2018, 06/30/2014, 05/12/2013 HIV Screening Completed 04/25/2019 Pneumococcal Vaccine: 50+ Years Completed 09/22/2022, 06/20/2015, 09/11/2011 Influenza Vaccine Completed 07/27/2024, , 05/16/2022, Additional history exists HIB Vaccines Aged Out No longer eligi ble based on patient's age to complete this topic HPV Vaccines Aged Out No longer eligi ble based on patient's age to complete this topic Hepatitis A Vaccines Aged Out No long er eligible based on patient's age to complete this topic IPV Vaccines Aged Out No longer eligi ble based on patient's age to complete this topic Meningococcal Vaccine Aged Out No mami adalberto eligible based on patient's age to complete this topic RSV under 20 months Aged Out No longe r eligible based on patient's age to complete this topic Rotavirus Vaccines Aged Out No longer eligible based on patient's age to complete this topic Goals Goal Patient Goal Type Associated Problems Recent Progress Patient-Stated? Author Blood Pressure < 140/90 Blood Pressure 112/58(2024 3:02 PM EST) No Di Meyers PharmD Hemoglobin A1c < 7 Result Component 11.9(07/27/20 2:31 PM EST) No Di Meyers PharmD Procedures Procedure Name Priority Date/Time Associated Diagnosis Comments POCT GLYCATED HEMOGLOBIN, TOTAL Routine 07/27/2024 2:31 PM EST Type 2 diabetes mellitus with hyperglycemia, with long-term current use of insulin ([facility]) POCT GLUCOSE Routine 07/27/2024 2:29 PM EST Type 2 diabetes mellitus with hyperglycemia, with long-term current use of insulin ([facility]) LIPID PANEL, STANDARD Routine 04/05/2024 11:44 AM EDT BI MAMMOGRAM SCREENING TOMOSYNTHESIS BILATERAL Routine 07/24/2023 3:39 PM EST ALBUMIN, RANDOM URINE W/CREATININE Routine 07/21/2023 12:51 PM EST Type 2 diabetes mellitus with hyperglycemia, with long-term current use of insulin ([facility]/HCC) Coronary artery stenosis THINPREP IMAGING PAP AND HPV MRNA E6/E7, WITH CT/NG, TRICHOMONAS Routine 05/16/2022 9:44 AM EDT PAP SMEAR Routine 05/16/2022 12:00 AM EDT HM COLONOSCOPY Routine 08/21/2020 HIV-1 ANTIBODY, EIA Routine 04/25/2019 HEPATITIS C AB W/REFL TO HCV RNA, QN, PCR Routine 02/22/2014 from Last 3 Months or Most Recently Relevant to Health Maintenance Results * (ABNORMAL) POCT HGB A1C (07/27/2024 2:31 PM EST) Hemoglobin A1C 11.9(A) 4.0 - 6.0 % QC Media Lot # [id number] Lot# Expiration Date ,470 Blood 07/27/2024 2:31 PM EST Brittnee Hanna MD POINT OF CARE TEST ENTER/E DIT ORDERABLES Final Result * (ABNORMAL) POCT Glucose (07/27/2024 2:29 PM EST) Glucose Blood, POC 331(A) 60 - 200 mg/dL QC Media Lot # [id number] Lot# Expiration Date ,980,207 Blood Capillary blood specimen / Unknown 07/27/2024 2:29 PM EST Brittnee Hanna MD POINT OF CARE TEST ENTER/E DIT ORDERABLES Final Result * (ABNORMAL) Lipid Panel, Standard (04/05/2024 11:44 AM EDT) Triglycerides 320(H) <150 mg/dL [facility] Comment:Desirable Triglyceri de: less than 150 mg/dLBorderline High Triglyceride 150-199 mg/dLHigh Triglyceride: 200-499 mg/dLVery High Triglyceride: greater than or equal to 5OO mg/dL Cholesterol 206(H) <200 mg/dL [facility] Comment:Desirable Cholestero l: less than 200 mg/dLBorderline High Cholesterol: 200-239 mg/dLHigh Cholesterol: greater than 239 mg/dL LDL Cholesterol Calculated 85 <100 mg/dL [facility] Comment:Desirable LDL: less than 100 mg/dLNear Optimal/Above Optimal LDL: 110- 129 mg/dLBorderline High LDL: 130-159 mg/dLHigh LDL: 160-189 mg/dLVery High LDL: greater than or equal to 190 mg/dL HDL Cholesterol 57 >40 mg/dL [facility] Comment:Desirable HDL: great er than 40 mg/dL Note: This HDL assay may give artificially low results in patients with liver disease. 04/05/2024 11:4 4 AM EDT 04/05/2024 1:31 PM EDT Brittnee Hanna MD LAB BLOOD ORDERABLES Final Result Performing Organization Address [facility]/State/[facility] Co de Phone Number [facility] [address] [place] [address] [phone] * BI Mammogram Screening Tomosynthesis Bilateral (07/24/2023 3:39 PM EST) Anatomical Region Laterality Modality Breast Bilateral Mammography 07/24/2023 3:39 PM EST Narrative 08/12/2023 3:43 AM EST ? [facility] ? [address] ?[place] [address] ? Mammography Report ? Signed ? Patient: Bhargav Okeefe,Cynthia ?MR#: [id number] ?? [id number] ? : 1965 ?Acct:[id number] ? Age/Sex: 57 / F ?ADM Date: 12/08/23 ? Loc: HO.MAMMO ? Attending Dr: Brittnee Hanna MD ? Ordering Physician: Brittnee Hanna MD ?Results: 1N ?? egative ? Date of Service: 07/24/23 ?Follow Up: 1 Year From Orig ?? inal Mammogram ? Procedure(s): MM tomosynthesis screening BI ?? Accession Number(s): [id number] ? cc: Brittnee Hanna MD ? EXAMINATION: ?? MM SCREENING DIGITAL BREAST TOMOSYNTHESIS, BILATERAL ? CLINICAL INFORMATION: ? Screening. Asymptomatic. ? COMPARISON: ?? Mammography: This study is compared with prior exams dating back to ?? 2016. ? TECHNIQUE: ?? Digital breast tomosynthesis is performed in both the craniocaudal and ?? mediolateral oblique views along with computer-aided detection (CAD). ?? Synthesized 2D images are generated from the tomosynthesis. ? FINDINGS: ?? There are scattered areas of fibroglandular density (ACR BI-RADS breast ?? composition Category b). ? There are no significant masses, abnormal calcifications, or other ?? abnormalities. ? MM/MM tomosynthesis screening BI ?? IMPRESSION: ?? No mammographic evidence of malignancy. ? ASSESSMENT: ? BI-RADS BI-RADS 1 - Negative ? RECOMMENDATION: ?? Routine annual mammography screening. ? 1 year F/U ? This examination should not preclude the clinical evaluation of a ?? suspicious palpable abnormality. ? This patient's information was entered into a reminder system with a ?? target due date for their next mammogram. ? Dictated By: ?Marleen Peter MD ? Signed By: ?<Electronically signed by Marleen Peter MD in OV> ? 08/12/23 0340 ? DD/ 1539 ? TD/TT: ? Assistant Baseball Coach: ? Procedure Note Donotuseinterpreter, Image - 08/12/2023 [facility] [address] [place], [place] [address] Mammography Report Signed Patient: Javy Perry#: Johanna [id number] : 1965Acct:[id number] Age/Sex: 57 / FADM Date: 07/24/23 Loc: HO.MAMMO Attending Dr: Brittnee Hanna MD Ordering Physician: Brittnee Hanna MDResults: 1N egative Date of Service: 07/24/23Follow Up: 1 Year From Orig inal Mammogram Procedure(s): MM tomosynthesis screening BI Accession Number(s): [id number] cc: Brittnee Hanna MD EXAMINATION: MM SCREENING DIGITAL BREAST TOMOSYNTHESIS, BILATERAL CLINICAL INFORMATION: Screening. Asymptomatic. COMPARISON: Mammography: This study is compared with prior exams dating back to 2017. TECHNIQUE: Digital breast tomosynthesis is performed in both the craniocaudal and mediolateral oblique views along with computer-aided detection (CAD). Synthesized 2D images are generated from the tomosynthesis. FINDINGS: There are scattered areas of fibroglandular density (ACR BI-RADS breast composition Category b). There are no significant masses, abnormal calcifications, or other abnormalities. MM/MM tomosynthesis screening BI IMPRESSION: No mammographic evidence of malignancy. ASSESSMENT: BI-RADS BI-RADS 1 - Negative RECOMMENDATION: Routine annual mammography screening. 1 year F/U This examination should not preclude the clinical evaluation of a suspicious palpable abnormality. This patient's information was entered into a reminder system with a target due date for their next mammogram. Dictated By: Marleen Peter MD Signed By: <Electronically signed by Marleen Peter MD in OV> 08/12/23 0340 DD/ 1539 TD/TT: Assistant Baseball Coach: Brittnee Hanna MD IMG BI PROCEDURES Edited R esult - Final * Albumin, Random Urine W/Creatinine (07/21/2023 12:51 PM EST) Creatinine, Urine 171.96 mg/dL [facility] Microalbumin Urine 46.0 mg/L [facility] Microalbum Creatinine Ratio Ur 26.7 <30 ug/mg cr [facility] Comment:Albumin/Creatinine R atio Reference Ranges: Normal: < 30 ug/mg creatinine Microalbuminuria: 30 - 300 ug/mg creatinineClinical Albuminuria: > 300 ug/mg creatinine Urine (Urine, Random) 07/21/2023 12:51 PM EST 07/21/2023 3:51 PM EST us Brittnee Hanna MD LAB URINE ORDERABLES Final Result [facility] [address] [place] [address] [phone] * THINPREP TIS PAP AND HPV mRNA E6/E7, CT/NG, TRICH (05/16/2022 9:44 AM EDT) Chlamydia trachomatis RNA, TMA, Urogenital NOT DETECTED NOT DETECTED [facility] Clinical Information: None given [facility] COMMENT SEE COMMENT [facility] Comment: The analytical performance characteristics of this assay, when used to test SurePath(TM) specimens have been determined by [facility]. The modifications have not been cleared or approved by the FDA. This assay has been validated pursuant to the CLIA regulations and is used for clinical purposes. ?? For additional information, please refer to https://education.[employer].WeDidIt/faq/NOK258 (This link is being provided for information/ educational purposes only.) ?? COMMENT SEE COMMENT [facility] Comment: EXPLANATORY NOTE: ? The Pap is a screening test for cervical cancer. It is ?? not a diagnostic test and is subject to false negative ?? and false positive results. It is most reliable when a ?? satisfactory sample, regularly obtained, is submitted ?? with relevant clinical findings and history, and when ?? the Pap result is evaluated along with historic and ?? current clinical information. ?? COMMENT: This Pap test has been evaluated with computer assisted technology. [facility] Aircraft Designer: SEE COMMENT [facility] Comment: RXB, CT(ASCP) CT screening location: [address] ??[address] HPV nRNA E6/E7 Not Detected Not Detected [facility] Comment: Methodology: Director Of Player Personnel-Mediated Amplification This assay detects E6/E7 viral messenger RNA (mRNA) from 14 high-risk HPV types (16,18,31,33,35,39,45,51,52,56,58,59,66,68). ? Cervical sources are required for HPV testing. If a vaginal source from a patient who has had a total hysterectomy with removal of cervix was ?? submitted, please contact the testing laboratory for alternative testing options. ?? For additional information, please refer to http://[employer]/faq/ZUF023k2 (This link if provided for information/ educational purposes only.) Interpretation/Re sult: Negative for intraepithelial lesion or malignancy. [facility] LMP: NONE GIVEN [facility] Neisseria gonorrhoeae RNA, TMA, Urogenital NOT DETECTED NOT DETECTED [facility] Prev. BX: NONE GIVEN [facility] Prev. PAP: NONE GIVEN CONVERTE D [facility] SOURCE: None given [facility] Statement Of Adequacy: SEE COMMENT [facility] Comment: Satisfactory for evaluation. Endocervical/transformation zone component present. Age and/or menstrual status not provided Trichomonas vaginalis, QL, TMA, PAP Vial NOT DETECTED NOT DETECTED [facility] Comment: The analytical performance characteristics of this assay have been determined by [facility]. The modifications have not been cleared or approved by the FDA. This assay has been validated pursuant to the CLIA regulations and is used for clinical purposes. ?? For additional information, please refer to http://[employer]/ faq/Trichomonastma (This link is being provided for information/ educational purposes only.) ?? 05/16/2022 9:44 AM EDT Brittnee Hanna MD LAB PATHOLOGY ORDERABLES F inal Result [facility] * Pap Smear (05/16/2022 12:00 AM EDT) Swab [facility] Provider LAB CYTOLOGY ORDERABLES F inal Result [facility] * Hm Colonoscopy (08/21/2020) Colonoscopy hyperplastic polyp Dr. Olivarez [facility] Provider HEALTH MAINTENANCE Final Result * HIV-1 antibody, EIA (04/25/2019) External HIV-1 Antibody Negative Blood Venous blood specimen / Unknown [facility] Provider LAB BLOOD ORDERABLES Emelia l Result * Hepatitis C Antibody with Reflex to HCV, RNA, Quantitative, Real-Time PCR (02/22/2014) Blood Venous blood specimen / Unknown 02/22/2014 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
--- OUTSIDE RECORDS SUMMARY | 2024-09-19 10:24 | XMS_ITS | Encounter Summary ---
Author Organization [facility] Address [address] [place] [address] Care Team Providers Care Electric Transfer Operator Name Role Phone Brittnee Hanna MD Primary Care Provider [phone] Di Hyde PharmD Unavailable [phone] Martina Mancia OD Unavailable Encounter Details Date Type Department Care Team ([facility] Contact Info) Description 12/17/2022 Abstract [facility] MEDICINE [address] [place] [phone] Brittnee Hanna MD [address] [place] [address] Social History Tobacco Use Types Packs/Day Years Used Date Smoking Tobacco: Some Days Cigarettes Passive Smoke Exposure: Current Smokeless Tobacco: Never Comments Unknown Sex and Gender Information Value Date Recorded Sex Assigned at Female 06/16/2022 10:18 AM EDT Legal Sex Female 10:18 AM EDT Gender Identity Female 06/16/2022 10:18 AM EDT Sexual Orientation Straight 06/16/2022 10 :18 AM EDT COVID-19 Exposure Response Date Recorded In the last 10 days, have yo u been in contact with someone who was confirmed or suspected to have Coronavirus/COVID-19? No / Unsure 12/18/2022 1:39 PM EDT documented as of this encounter Plan of Treatment Upcoming Encounters Date Type Department Care Team ([facility] Contact Info) Description 09/21/2024 3:30 PM EST Office Visit [facility] MEDICINE [address] [place], [place] [phone] Brittnee Hanna MD [address] [place], [place] [phone] 11/07/2024 1:00 PM EDT Office Visit [facility] OPTOMETRY [address] [place], [place] [phone] Martina Mancia OD [address] [place] [address] documented as of this encounter Visit Diagnoses Not on filedocumented in this encounter Additional Health Concerns Assessment Noted Time PHQ-9 Depression Total Score: 0 09/22/19 9:47 AM EST documented as of this encounter Care Teams Electric Transfer Operator Relationship Specialty Start Date End Date Brittnee Hanna MD [address] [place] [address] PCP - General Family Medicine 08/17/18 Di Hyde, ShabbirD [address] [place], [place] [phone] Pharmacist Internal Medicine 01/06/23 08/31/24 Martina Mancia OD [address] [place] [address] [phone] Optometry 07/26/24 Donna Sutton Certified Travel CounselorPin Inserter 05/06/24 documented as of this encounter
--- OUTSIDE RECORDS SUMMARY | 2024-09-19 10:24 | XMS_ITS | Encounter Summary ---
Author Organization [employer] [facility] Address [address] [place] [address] Care Team Providers Care On Site Construction Superintendent Name Role Phone Brittnee Hanna MD Primary Care Provider [phone] Di Hyde PharmD Unavailable [phone] Martina Mancia OD Unavailable [phone] Reason for Referral * Consultation (Routine) - Authorized Specialty Diagnoses / Procedures Referred By Contac t Referred To Contact Cardiology Diagnoses Type 2 diabetes mellitus with hyperglycemia, with long-term current use of insulin (CMS/HCC) Coronary artery stenosis Brittnee Hanna MD [address] [place] [address] Phone: tel: fax: [facility] Referral ID Status Reason Start Date Expiration Date Visits Requested Visits Authorized [id number] Authorized Specialty Services Required 4 07/27/2025 6 6 Scheduling Instructions Please schedule in [place] with Dr. Restrepo if possible Reason for Visit * Reason Comments Annual Exam Encounter Details Date Type Department Care Team (Late st Contact Info) Description 07/27/2024 2:15 PM EST Office Visit [facility] [address] [place], [place] [phone] Brittnee Hanna MD [address] [place], [place] [phone] Type 2 diabetes mellitus with hyperglycemia, with long-term current use of insulin (CMS/HCC) (Primary Dx); Unintentional weight loss; Dyslipidemia; Neuropathy; Encounter for immunization; Coronary artery stenosis; Tobacco abuse; Other specified health status Social History Tobacco Use Types Packs/Day Years [...] Orientation Straight 06/16/2022 10 :18 AM EDT documented as of this encounter Last Filed Vital Signs Vital Sign Reading Time Taken Comments Blood Pressure 131/80 07/27/2024 2:27 PM EST Pulse 85 07/27/2024 2:27 PM EST Temperature 36.2 ??C (97.1 ??F) 07/27/2024 2:27 PM ES T Respiratory Rate 20 07/27/2024 2:27 PM EST Oxygen Saturation 100% 07/27/2024 2:27 PM EST Inhaled Oxygen Concentration - - Weight 57.6 kg (127 lb) 07/27/2024 2:27 PM EST Height 157.5 cm (5' 2 ) 07/27/2024 2:27 PM EST Body Mass Index 23.23 07/27/2024 2:27 PM EST documented in this encounter Progress Notes * Brittnee Hanna MD - 07/27/2024 2:15 PM EST Rubén Marie is a 59 y.o. female with PMHx of asthma, type 2 diabetes, hypertension, and CAD who presentsto the office here for [facility] medical conditions and comprehensive annual evaluation. Her main concerns are continued unintentional weight loss and uncontrolled diabetes. Pt's care is limited by low literacy. She is working closely with [facility] with our PharmD, LANG but continues to have uncontrolled, liable blood sugars. She may benefit from ins ulin pump. Pt states her Diabetic neuropathy is very painful and her right elbow has been painful as well but she will be following up with orthopedics. Pt agreed to Flu and Covid shot. Seen on 04/07/2024 for type 2 diabetes. She has longstanding poorly controlled diabetes. Care has been complicated by non adherence to medications and appointment but her fill history with the pharmacy has greatly improved. She is not using the prescribed dose. Education done today. Last Seen in [facility] on 05/17/24 for Neuropathy on her feet. Denied recent illness, injury, or hospitalization. Most likely DM neuropathy, I explained to patient re complications of uncotnrolled DM, and improtance of A1c below 7. Start gabapentin 100mg bid, hold for sedation, or can take 2 tabs at night. FU with PCP. Order labs to ro other neuropathies. Continue close fu with PCP re DM control. Advised to do daily foot check, caution with foot lesions, consult MARC with PCP or [facility] prn foot lesions. Social History Tobacco: denied Drugs: none Alcohol: No Sexuality: Denies current sexual activity Suicide/Depression: The patient denies any present symptoms of depression or anxiety. Review of Systems Constitutional: Negative for fatigue, fever and unexpected weight change. Respiratory: Negative for cough. Cardiovascular: Negative for chest pain. Gastrointestinal: Negative for abdominal pain. Genitourinary: Negative for difficulty urinating. Current Outpatient Medications: acetone, urine, test strip, Use as directed to check for ketones in the urine as needed, Disp: 100 each, Rfl: 0 Advair Diskus 250-50 MCG/ACT aerosol powder , INHALE 1 PUFF BY MOUTH TWICE DAILY IN THE MORNING ANDIN THE EVENING RINSE MOUTH AFTER USING., Disp: 60 each, Rfl: 5 albuterol (Ventolin HFA) 108 (90 Base) MCG/ACT inhaler, INHALE 2 PUFFS BY MOUTH EVERY 4 HOURS NEEDED FOR WHEEZING OR SHORTNESS OF BREATH, Disp: 18 g, Rfl: 1 Alcohol Swabs (Alcohol Prep) 70 % pads, USE BEFORE TEST BLOOD SUGAR AND INSULIN, Disp: 100 each, Rfl: 11 amLODIPine (Norvasc) 5 MG tablet, Take 1 tablet (5 mg) by mouth Once per day., Disp: 30 tablet, Rfl: 11 aspirin (Aspirin Adult Low Strength) 81 MG EC tablet, Take 1 tablet (81 mg) by mouth in the morning., Disp: 90 tablet, Rfl: 3 atorvastatin (Lipitor) 80 MG tablet, Take 1 tablet (80 mg) by mouth at bedtime., Disp: 90 tablet, Rfl: 3 Blood Glucose Monitoring Suppl (Smacktive.comyle [place] Lite) w/Device kit, TEST BLOOD SUGAR FIVE TIMES DAILY DIRECTED, Disp: 1 kit, Rfl: 0 chlorthalidone (Hygroton) 25 MG tablet, Take 1 tab po jin, Disp: 90 tablet, Rfl: 3 Continuous Blood Gluc Rehabilitation Manager (FreeStyle Ric 2 [place]) device, Use as directed, Disp: 1 each, Rfl: 0 Continuous Glucose Sensor (FreeStyle Ric 2 Sensor) [facility], USE DIRECTED TO TEST BLOOD SUGAR CHANGE EVERY 14 DAYS, Disp: 2 each, Rfl: 11 Ferrous Sulfate (iron) 325 (65 Fe) MG tablet, TAKE 1 TABLET BY MOUTH EVERY OTHER DAY IN THE MORNING, Disp: 45 tablet, Rfl: 11 gabapentin (Neurontin) 100 MG capsule, Take 1 capsule (100 mg) by mouth 2 times daily., Disp: 180 capsule, Rfl: 3 glucagon (Baqsimi Two Pack) 3 MG/DOSE nasal powder, For low blood sugar emergencies, insert 3mg into one nostril, may repeat the dose if no response after 15 minutes., Disp: 1 each, Rfl: 11 glucose 4 g chewable tablet, Chew 4 tablets (16 g) if needed for low blood sugar., Disp: 50 tablet,Rfl: 11 glucose blood (FreeStyle Precision Freeman Test) test strip, TEST BLOOD SUGAR UP TO FOUR TIMES DAILY ASNEEDED, Disp: 100 strip, Rfl: 11 Icosapent Ethyl (Vascepa) 1 g capsule, TAKE 2 CAPSULES BY MOUTH TWICE DAILY IN THE MORNING AND EVENING, Disp: 360 capsule, Rfl: 11 insulin glargine (Lantus SoloStar) 100 UNIT/ML pen, INJECT 40 UNITS SUBCUTANEOUSLY AT BEDTIME, Disp: , Rfl: insulin lispro (HumaLOG) 100 UNIT/ML injection, INJECT SUBCUTANEOUSLY DIRECTED PER SLIDING SCALE: BLOOD SUGAR <150 = 0U, 151-200 = 2U, 201-250 = 4U, 251-300 = 6U, 301-350 = 8U, >350 = 10U AND CALL DOCTOR, Disp: 15 mL, Rfl: 11 isosorbide mononitrate ER (Imdur) 30 MG 24 hr tablet, TAKE 1 TABLET BY MOUTH EVERY MORNING, Disp: 90 tablet, Rfl: 3 lisinopril 20 MG tablet, Take 1 tablet (20 mg) by mouth in the morning., Disp: 90 tablet, Rfl: 3 loratadine (Claritin) 10 MG tablet, TAKE 1 TABLET BY MOUTH EVERY MORNING FOR ALLERGIES, Disp: 90 tablet, Rfl: 3 metoprolol succinate XL (Toprol-XL) 50 MG 24 hr tablet, Take 1 tablet (50 mg) by mouth in the morning. Do not crush or chew., Disp: 90 tablet, Rfl: 3 OLANZapine (ZyPREXA) 7.5 MG tablet, TAKE 1 TABLET BY MOUTH AT BEDTIME, Disp: 30 tablet, Rfl: 11 Pentips 32G X 4 MM misc, USE FOUR TIMES DAILY, Disp: 100 each, Rfl: 11 tiotropium (Spiriva HandiHaler) 18 MCG inhalation capsule, Place 1 capsule (18 mcg) into inhaler and inhale in the morning., Disp: 30 capsule, Rfl: 11 TRUEplus Lancets 33G misc, TEST BLOOD SUGAR FIVE TIMES DAILY, Disp: 200 each, Rfl: 11 Allergies Allergen Reactions Shellfish-Derived Products Swelling Other reaction(s): unspecified Penicillin V Other reaction(s): unspecified Penicillins Hives Past Medical History: Diagnosis Date Asthma CAD in [place] artery Diabetes mellitus (CMS/HCC) Dyslipidemia Great toe pain, right 12/18/2022 Treated for cellulitis residual acting in joints, differential include Gout. - Will check uric acids. History of diabetic ketoacidosis 02/18/2023 Admitted 03/17/22 for DKA in the setting of acute cystitis. Hypertension Mild intermittent asthma 05/18/2017 -On Advair and Spiriva with questionable compliance. Uses her albuterol regularly. Tobacco dependence Past Surgical History: Procedure Laterality Date CORONARY ANGIOPLASTY WITH STENT PLACEMENT Family History Problem Relation Name Age of Onset Diabetes Mother Diabetes Father Diabetes Brother Objective Visit Vitals BP 131/80 (BP Location: Left arm, Patient Position: Sitting, BP Cuff Size: Adult) Pulse 85 Temp 97.1 ??F (36.2 ??C) (Temporal) Resp 20 Ht 5' 2 (1.575 m) Wt 127 lb (57.6 kg) SpO2 100% BMI 23.23 kg/m?? Smoking Status Former BSA 1.59 m?? Physical Exam Constitutional: Appearance: Normal appearance. HENT: Head: Normocephalic. Right Ear: Tympanic membrane normal. Left Ear: Tympanic membrane normal. Mouth/Throat: Pharynx: Oropharynx is clear. Eyes: Pupils: Pupils are equal, round, and reactive to light. Cardiovascular: Rate and Rhythm: Normal rate and regular rhythm. Pulses: Dorsalis pedis pulses are 2+ on the right side and 2+ on the left side. Heart sounds: Normal heart sounds. Pulmonary: Effort: Pulmonary effort is normal. Breath sounds: Normal breath sounds. Chest: Breasts: Crow Score is 5. Breasts are symmetrical. Right: Normal. No inverted nipple, mass, nipple discharge or skin change. Left: Normal. No inverted nipple, mass, nipple discharge or skin change. Abdominal: General: Abdomen is flat. Palpations: There is no mass. Tenderness: There is no abdominal tenderness. Musculoskeletal: General: Normal range of motion. Cervical back: Normal range of motion and neck supple. Right foot: No deformity or Charcot foot. Left foot: No deformity or Charcot foot. Feet: Right foot: Protective Sensation: 4 sites tested. 4 sites sensed. Skin integrity: Skin integrity normal. Toenail Condition: Right toenails are normal. Left foot: Protective Sensation: 4 sites tested. 4 sites sensed. Skin integrity: Skin integrity normal. Toenail Condition: Left toenails are normal. Comments: Decreased sensation on both feet. Lymphadenopathy: Cervical: No cervical adenopathy. Upper Body: Right upper body: No supraclavicular or axillary adenopathy. Left upper body: No supraclavicular or axillary adenopathy. Skin: General: Skin is warm and dry. Neurological: General: No focal deficit present. Mental Status: She is alert. Psychiatric: Behavior: Behavior normal. 59 y.o. female Annual Evaluation Problem List Items Addressed This Visit Type 2 diabetes mellitus with hyperglycemia, with long-term current use of insulin ([facility]) - Primary Diabetes is not controlled. Diabetes is followed with pharmacy CDTM by Dr. Di Hyde PharmJohnathan. Note addend 09/01/23 after pharmacy visit and [...] to Cardiology 07/27/24 -referral to endocrinology 09/01/24 Relevant Orders POCT Glucose (Completed) POCT HGB A1C (Completed) Albumin, Random Urine W/Creatinine Basic Metabolic Panel Referral to Cardiology Unintentional weight loss Pt with unintentional weight loss. Differential includes uncontrolled diabetes, neoplasm, GI etiology vs other. Baseline weight was 140 lbs in 2021 Weight 120 lbs 08/21/2024 -TSH 0.62 05/2024 -HIV neg 04/2019 -colonoscopy 2020 but recommended 5 year follow up due to poor prep -CXR 03/19/24 unremarkable -mammo normal BIRADS 1, 07/2023 -referral to GI and Endocrinology placed 09/01/24 Dyslipidemia Lab Results Component Value Date CHOL 206 [...] Icosapent Ethyl (Vascepa) 1 g capsule 07/27/24 Neuropathy Decreased sensation in both feet. Will be following up with orthopedics. - Prescribed gabapentin (Neurontin) 100 MG capsule 07/27/24 Relevant Medications gabapentin (Neurontin) 100 MG capsule Coronary artery stenosis S/P anterolateral STEMI 04/15/14 requiring PCI with [...] and DM) - Referring to Cardiology 07/27/24 Relevant Orders Referral to Cardiology Tobacco abuse Other specified health status -next physical exam due after 07/27/25 -eye care facilitated by [facility] on 05/20/2023 -dental home is [facility], [facility] -health care proxy filed 04/07/24 Other Visit Diagnoses Encounter for immunization Relevant Orders FLU VACCINE TRIVALENT (Fluarix) 6 mo + (Completed) Annual Evaluation -Normal growth and development. -Anticipatory guidance discussed. -Preventative care / harm reduction discussed. Follow up in about 4 months (around 11/25/2024), or Follow Up for Diabetes. I, Jeana Montemayor, am serving as a scribe to document services personally performed by Dr. Brittnee Hanna, based on the patient's response to questions by provider and providers statements to me. documented in this encounter Miscellaneous Notes * Assessment & Plan Note - Brittnee Hanna MD - 2024 2:11 PM EST Associated Problem(s): Unintentional weight loss Pt with unintentional weight loss. Differential includes uncontrolled diabetes, neoplasm, GI etiology vs other. Baseline weight was 140 lbs in 2021 Weight 120 lbs 08/21/2024 -TSH 0.62 05/2024 -HIV neg 04/2019 -colonoscopy 2020 but recommended 5 year follow up due to poor prep -CXR 03/19/24 unremarkable -mammo normal BIRADS , 07/2023 -referral to GI and Endocrinology placed 09/01/24 * Assessment & Plan Note - Jeana Montemayor MA - 07/27/2024 3:00 PM ESTAssociated Problem(s): Neuropathy Decreased sensation in both feet. Will be following up with orthopedics. - Prescribed gabapentin (Neurontin) 100 MG capsule 07/27/24 * Assessment & Plan Note - Jeana Montemayor MA - 07/27/2024 2:59 PM ESTAssociated Problem(s): Type 2 diabetes mellitus with hyperglycemia, with long-term current use of insulin ([facility]) Diabetes is not controlled. Diabetes is followed [...] to Cardiology 07/27/24 -referral to endocrinology 09/01/24 * Assessment & Plan Note - Jeana Montemayor MA - 07/27/2024 2:57 PM ESTAssociated Problem(s): Other specified health status -next physical exam due after 07/27/25 -eye care facilitated by [facility] on 05/20/2023 -dental home is [facility] -health care proxy filed 04/07/24 * Assessment & Plan Note - Jeana Montemayor MA - 07/27/2024 2:55 PM ESTAssociated Problem(s): Dyslipidemia Lab Results Component Value Date CHOL 206 [...] Icosapent Ethyl (Vascepa) 1 g capsule 07/27/24 * Assessment & Plan Note - Jeana Montemayor MA - 07/27/2024 2:54 PM ESTAssociated Problem(s): Coronary artery stenosis S/P anterolateral STEMI 04/15/14 requiring PCI with [...] and DM) - Referring to Cardiology 07/27/24 documented in this encounter Plan of Treatment Upcoming Encounters Date Type Department Care Team (Late st Contact Info) Description 09/21/2024 3:30 PM EST Office Visit [facility] [address] [place] [address] Brittnee Hanna MD [address] [place] [address] 11/07/2024 1:00 PM EDT Office Visit [facility] [address] [place] [address] Martina Mancia, OD [address] [place] [address] Scheduled Orders Name Type Priority Associated Diagnoses Orde r Schedule Albumin, Random Urine W/Creatinine Lab Routine Type 2 diabetes mellitus with hyperglycemia, with long-term current use of insulin ([facility]) Expected: 07/27/2024 (Approximate), Expires: 07/27/2025 Basic Metabolic Panel Lab Routine Type 2 diabetes mellitus with hyperglycemia, with long-term current use of insulin ([facility]) Expected: 07/27/2024 (Approximate), Expires: 07/27/2025 Scheduled Referrals Name Type Priority Associated Diagnoses Order Schedule Referral to Cardiology Outpatient Referral Routine Type 2 diabetes mellitus with hyperglycemia, with long-term current use of insulin ([facility]) Coronary artery stenosis Expected: 07/27/2024 (Approximate), Expires: 07/27/2025 documented as of this encounter Goals Goal Patient Goal Type Associated Problems Recent Progress Patient-Stated? Author Blood Pressure < 140/90 Blood Pressure 112/58(2024 3:02 PM EST) No Di Meyers PharmD Hemoglobin A1c < 7 Result Component 11.9(07/27/20 2:31 PM EST) No Di Meyers PharmD documented as of this encounter Procedures Procedure Name Priority Date/Time Associated Diagnosis Comments POCT GLYCATED HEMOGLOBIN, TOTAL Routine 07/27/2024 2:31 PM EST Type 2 diabetes mellitus with hyperglycemia, with long-term current use of insulin ([facility]) POCT GLUCOSE Routine 07/27/2024 2:29 PM EST Type 2 diabetes mellitus with hyperglycemia, with long-term current use of insulin ([facility]) documented in this encounter Results * (ABNORMAL) POCT HGB A1C (07/27/2024 2:31 PM EST) Hemoglobin A1C 11.9(A) 4.0 - 6.0 % QC Media Lot # [id number] Lot# Expiration Date [id number] Blood 07/27/2024 2:31 PM EST Brittnee Hanna MD POINT OF CARE TEST ENTER/E DIT ORDERABLES Final Result * (ABNORMAL) POCT Glucose (07/27/2024 2:29 PM EST) Glucose Blood, POC 331(A) 60 - 200 mg/dL QC Media Lot # [id number] Lot# Expiration Date ,[id number] Blood Capillary blood specimen / Unknown 07/27/2024 2:29 PM EST Brittnee Hanna MD POINT OF CARE TEST ENTER/E DIT ORDERABLES Final Result documented in this encounter Visit Diagnoses Diagnosis Type 2 diabetes mellitus with hyperglycemia, with long-term current use of insulin ([facility])- Primary Unintentional weight loss Loss of weight Dyslipidemia Other and unspecified hyperlipidemia Neuropathy Mononeuritis of unspecified site Encounter for immunization Coronary artery stenosis Coronary atherosclerosis of unspecified type of vessel, [place] or graft Tobacco abuse Tobacco use disorder Other specified health status documented in this encounter Additional Health Concerns Assessment Noted Time PHQ-9 Depression Total Score: 15 024 10:35 AM EDT documented as of this encounter Care Teams On Site Construction Superintendent Relationship Specialty Start Date End Date Brittnee Hanna MD [address] [place] [address] PCP - General Family Medicine 08/17/18 Di Hyde PharmD [address] [place] [address] Pharmacist Internal Medicine 01/06/23 08/31/24 Martina Mancia OD [address] [place] [address] Optometry 07/26/24 Donna Sutton Vending Service TechnicianSweater Operator 05/06/24 documented as of this encounter
--- OUTSIDE RECORDS SUMMARY | 2024-09-19 10:24 | XMS_ITS | Encounter Summary ---
Author Organization [employer] Address [address] [place] [address] Care Team Providers Care Test Engineer Name Role Phone Brittnee Hanna MD Primary Care Provider [phone]- [phone] Di Hyde PharmD Unavailable Martina Mancia OD Unavailable [phone] Reason for Visit * Reason Comments Med Refill Encounter Details Date Type Department Care Team (Late st Contact Info) Description 08/25/2024 Refill [facility] [address] [place] [address] Brittnee Hanna MD [address] [place], [place] [phone] Type 2 diabetes mellitus with hyperglycemia, with long-term current use of insulin ([facility]); Anemia, unspecified type; Dyslipidemia Social History Tobacco Use Types Packs/Day Years [...] AM EDT documented as of this encounter Plan of Treatment Upcoming Encounters Date Type Department Care Team (Late st Contact Info) Description 09/21/2024 3:30 PM EST Office Visit [facility] [address] [place] [address] Brittnee Hanna MD [address] [place] [address] 11/07/2024 1:00 PM EDT Office Visit [facility] [address] [place], [place] [phone] Martina Mancia, OD [address] [place] [address] documented as of this encounter Goals Goal Patient Goal Type Associated Problems Recent Progress Patient-Stated? Author Blood Pressure < 140/90 Blood Pressure 112/58(2024 3:02 PM EST) No Di Meyers PharmD Hemoglobin A1c < 7 Result Component 11.9(07/27/20 2:31 PM EST) No Di Meyers PharmD documented as of this encounter Visit Diagnoses Diagnosis Type 2 diabetes mellitus with hyperglycemia, with long-term current use of insulin ([facility]) Anemia, unspecified type Dyslipidemia Other and unspecified hyperlipidemia documented in this encounter Additional Health Concerns Assessment Noted Time PHQ-9 Depression Total Score: 15 024 10:35 AM EDT documented as of this encounter Care Teams Test Engineer Relationship Specialty Start Date End Date Brittnee Hanna MD [address] [place] [address] PCP - General Family Medicine 08/17/18 Di Hyde PharmD [address] [place] [address] Pharmacist Internal Medicine 01/06/23 08/31/24 Martina Mancia OD [address] [place] [id number] Optometry 07/26/24 Donna Sutton Tool Trouble ShooterNational Opelint Analyst 05/06/24 documented as of this encounter
--- OUTSIDE RECORDS SUMMARY | 2024-09-19 10:24 | XMS_ITS | Encounter Summary ---
Author Organization [employer] Address [address] 7t [place] [address] Care Team Providers Care Second Baker Name Role Phone Brittnee Hanna MD Primary Care Provider +- [phone] Di Hyde PharmD Unavailable Martina Mancia OD Unavailable [phone] Reason for Visit * Reason Onset Date Comments triage 07/21/2022 Encounter Details Date Type Department Care Team ([facility] st Contact Info) Description 07/21/[address] [facility] MEDICINE [address] [place] [address] Brittnee Hanna MD 230 [place], [place] [phone] triage Social History Tobacco Use Types Packs/Day Years Used Date Smoking Tobacco: Never Assessed Comments Unknown Sex and Gender Information Value [...] suspected to have Coronavirus/COVID-19? No / Unsure 07/22/2022 1:44 PM EST documented as of this encounter Miscellaneous Notes * Telephone Encounter - Jess Forte RN - 07/21/2022 6:21 PM EST Patient states having increased anxiety and depression since losing MH services with [facility]. Per pt has not had any follow up with therapist or psychiatrist. Was supposed to have an appt on 06/15 but when called to r/s was never answered. Has been without meds. Per pt denies any SI/HI. Just increased anxiety. Pt advised that no appts in clinic tomorrow. Pt to come into [facility] tomorrow to speak with on site [facility] clinician and see if [facility] provider (advised cannot guarantee Dr. Hanna) can provide meds until seen. Pt agrees. Pt states feels safe at home and has number to crisis to use as needed. Protocol Used: Depression (Adult) Protocol-Based Disposition: See in Office or Video Visit within 3 Days Video visit offer not recorded Positive Triage Question: * Requesting to talk with a counselor (mental health worker, psychiatrist, etc.) * All higher-acuity triage questions were negative Care Advice Discussed: * Reasons To Call Back - Sadness or depression symptoms persist over 2 weeks - You feel like harming yourself * Telephone Encounter - Michael Rao - 07/21/2022 4:31 PM EST Symptoms: Anxiety or Panic Attack, Depression, Loss of Appetite Outcome: Schedule an urgent appointment (within 4 hours) or talk to a nurse or provider soon Reason: Getting worse The caller accepted this outcome Please contact pt at [phone] speaks Mongolian documented in this encounter Plan of Treatment Upcoming Encounters Date Type Department Care Team (Late st Contact Info) Description 09/21/2024 3:30 PM EST Office Visit [facility] MEDICINE [address] [place] [address] Brittnee Hanna MD [address] [place] [address] 11/07/2024 1:00 PM EDT Office Visit [facility] OPTOMETRY [address] [place] [address] Martina Mancia, OD [address] [place] [address] documented as of this encounter Visit Diagnoses Not on filedocumented in this encounter Care Teams Second Baker Relationship Specialty Start Date End Date Brittnee Hanna MD [address] [place] [address] [phone] PCP - General Family Medicine 08/17/18 Di Hyde, Bo [address] [place] [address] Pharmacist Internal Medicine 01/06/23 08/31/24 Martina Mancia OD [address] [place] [address] Optometry 07/26/24 Donna Sutton Nipple ThreaderCredit Review Officer 05/06/24 documented as of this encounter
--- OUTSIDE RECORDS SUMMARY | 2024-09-19 10:24 | XMS_ITS | Encounter Summary ---
Author Organization [employer] Address [address] [place] [address] Care Team Providers Care Director Of Quality Improvement Name Role Phone Brittnee Hanna MD Primary Care Provider +1- [phone] Martina Mancia OD Unavailable [phone] Reason for Visit * Reason Onset Date Comments Med Refill 09/12/2024 Encounter Details Date Type Department Care Team (Late st Contact Info) Description 09/12/2024 Refill [facility] MED & PEDS [address] [place], [place] [phone] Brittnee Hanna MD [address] [place] [address] Social History Tobacco Use Types Packs/Day Years [...] Description 09/21/2024 3:30 PM EST Office Visit [facility] MEDICINE 230 [place] [address] Brittnee Hanna MD [address] [place] [address] 11/07/2024 1:00 PM EDT Office Visit [facility] OPTOMETRY [address] [place] [address] Gavino, Martina, OD 230 [place] [address] documented as of this encounter Goals Goal Patient Goal Type Associated Problems Recent Progress Patient-Stated? Author Blood Pressure < 140/90 Blood Pressure 112/58(2024 3:02 PM EST) No Piers-Gambl e, Di, PharmD Hemoglobin A1c < 7 Result Component 11.9(07/27/20 24 2:31 PM EST) No Piers-Gambl e, Di, PharmD documented as of this encounter Visit Diagnoses Not on filedocumented in this encounter Additional Health Concerns Assessment Noted Time PHQ-9 Depression Total Score: 15 024 10:35 AM EDT documented as of this encounter Care Teams Director Of Quality Improvement Relationship Specialty Start Date End Date Brittnee Hanna MD [address] [place] [address] PCP - General Family Medicine 08/17/18 Martina Mancia OD [address] [place] [address] Optometry 07/26/24 Donna Sutton Plastic OutfitterMagazine Publisher 05/06/24 documented as of this encounter
--- OUTSIDE RECORDS SUMMARY | 2024-09-19 10:24 | XMS_ITS | Encounter Summary ---
Author Organization [email or web address] Address [address] 7[address] [place] [address] Care Team Providers Care Auto Parts Counter Person Name Role Phone Brittnee Hanna MD Primary Care Provider +1- [phone] Di Hyde PharmD Unavailable [phone] Martina Mancia OD Unavailable [phone] Encounter Details Date Type Department Care Team (Latest Contact Info) Description 08/31/2024 Travel Social History Tobacco Use Types Packs/Day Years [...] Description 09/21/2024 3:30 PM EST Office Visit [facility] MEDICINE [address] [place] [address] Brittnee Hanna MD 230 [place] [address] 11/07/2024 1:00 PM EDT Office Visit [facility] OPTOMETRY [address] [place] [address] Gavino, Martina, OD 230 [place] [address] documented as of this encounter Goals Goal [...] documented as of this encounter Care Teams Auto Parts Counter Person Relationship Specialty Start Date End Date Brittnee Hanna MD 230 [place] [address] PCP - General Family Medicine 08/17/18 BhupendraDi Stone, PharmD 230 [place] [address] Pharmacist Internal Medicine 01/06/23 08/31/24 Martina Mancia OD [address] [place] [address] Optometry 07/26/24 Donna Sutton Staying Machine OperatorSpinning Frame Tender 05/06/24 documented as of this encounter
--- OUTSIDE RECORDS SUMMARY | 2024-09-19 10:24 | XMS_ITS | Encounter Summary ---
Author Organization [facility] Address [address] [facility] [address] [facility] [address] 7t [place] [address] Care Team Providers Care Machine Shop Worker Name Role Phone Brittnee Hanna MD Primary Care Provider +- [phone] Di Hyde PharmD Unavailable [phone] Martina Mancia OD Unavailable Reason for Visit * Reason Comments Med Refill Encounter Details Date Type Department Care Team (Late st Contact Info) Description 02/18/[address] [facility] MEDICINE [address] [place] [address] Brittnee Hanna MD [address] [place], [place] [phone] Type 2 diabetes mellitus with other circulatory complication, with long-term current use of insulin ([facility]) Social History Tobacco Use Types Packs/Day Years Used Date Smoking Tobacco: Some Days Cigarettes Passive Smoke Exposure: Current Smokeless Tobacco: Never Depression Answer Date Recorded Patient Health Questionnaire-9 Score 21 01/08/2023 Depression Answer Date Recorded Patient Health Questionnaire-2 Score 6 01/08/2023 Comments Unknown Sex and Gender Information Value [...] suspected to have Coronavirus/COVID-19? No / Unsure 02/10/2023 2:11 PM EDT documented as of this encounter Miscellaneous Notes * Telephone Encounter - Brittnee Hanna MD - 02/18/2023 3:48 PM EDT Please schedule mammo. Referral placed 09/2022 documented in this encounter Plan of Treatment Upcoming Encounters Date Type Department Care Team (Late st Contact Info) Description 09/21/2024 3:30 PM EST Office Visit [facility] MEDICINE [address] [place] [address] Brittnee Hanna MD 230 [place] [address] 11/07/2024 1:00 PM EDT Office Visit [facility] OPTOMETRY [address] [place] [address] Martina Mancia OD 230 [place] [address] documented as of this encounter Goals Goal Patient Goal Type Associated Problems Recent Progress Patient-Stated? Author Hemoglobin A1c < 7 Result Component 11.9( 2:31 PM EST) No Di Hyde PharmD documented as of this encounter Visit Diagnoses Diagnosis Type 2 diabetes mellitus with other circulatory complication, with long-term current use of insulin ([facility]) documented in this encounter Additional Health Concerns Assessment Noted Time PHQ-9 Depression Total Score: 21 023 9:47 AM EDT documented as of this encounter Care Teams Machine Shop Worker Relationship Specialty Start Date End Date Brittnee Hanna MD [address] [place] [address] PCP - General Family Medicine 08/17/18 Di Hyde, Bo [address] [place] [address] Pharmacist Internal Medicine 01/06/23 08/31/24 Martina Mancia OD [address] [place] [address] Optometry 07/26/24 Donna Sutton Satellite Dish InstallerSeismic Engineer 05/06/24 documented as of this encounter
--- OUTSIDE RECORDS SUMMARY | 2024-09-19 10:24 | XMS_ITS | Encounter Summary ---
Author Organization [employer] Address [address] [place] [address] Care Team Providers Care Front Office Manager Name Role Phone Brittnee Hanna MD Primary Care Provider [phone]- [phone] Martina Mancia OD Unavailable [phone] Reason for Visit * Reason Onset Date Comments Appointment Request 09/07/2024 Encounter Details Date Type Department Care Team ([facility] st Contact Info) Description 09/07/2024 Telephone [facility] MEDICINE 230 [place] [address] Di Hyde, PharmD [address] [place] [address] Appointment Request Social History Tobacco Use Types Packs/Day Years [...] AM EDT documented as of this encounter Miscellaneous Notes * Telephone Encounter - Zoe Ferrera RN - 09/08/2024 12:23 PM EST Called pt using [facility] spanish literature professor Nivia #[id number], scheduled pt for 09/21/24 at 3:30pm. [facility] [place] * Telephone Encounter - Di Hyde PharmD - 09/07/2024 4:20 PM EST Discussed with PCP; patient to be scheduled for 30 minute visit follow up for concerns of uncontrolled DM2 (to be referred to endo) and weight loss (to be referred to GI). Please assist, thank you! documented in this encounter Plan of Treatment Upcoming Encounters Date Type Department Care Team (Late st Contact Info) Description 09/21/2024 3:30 PM EST Office Visit [facility] MEDICINE [address] [place] [address] Brittnee Hanna MD [address] [place], [place] [phone] 11/07/2024 1:00 PM EDT Office Visit [facility] OPTOMETRY [address] [place] [address] Martina Mancia OD 230 [place] [address] documented as of this encounter Goals Goal Patient Goal Type Associated Problems Recent Progress Patient-Stated? Author Blood Pressure < 140/90 Blood Pressure 112/58(2024 3:02 PM EST) No Piers-Gambl e, Di, PharmD Hemoglobin A1c < 7 Result Component 11.9(07/27/20 2:31 PM EST) No Piers-Gambl e, Di, PharmD documented as of this encounter Visit Diagnoses Not on filedocumented in this encounter Additional Health Concerns Assessment Noted Time PHQ-9 Depression Total Score: 15 024 10:35 AM EDT documented as of this encounter Care Teams Front Office Manager Relationship Specialty Start Date End Date Brittnee Hanna MD 230 [place] [address] PCP - General Family Medicine 08/17/18 Martina Mancia, JONATHON [address] [place] [address] Optometry 07/26/24 Donna Sutton Adobe Layer HelperCripple Worker 05/06/24 documented as of this encounter
--- OUTSIDE RECORDS SUMMARY | 2024-09-19 10:24 | XMS_ITS | Encounter Summary ---
Author Organization [facility] Address [address] 7[address] [place] [address] Care Team Providers Care Automation Test Developer Name Role Phone Brittnee Hanna MD Primary Care Provider [phone] Martina Mancia OD Unavailable [phone] Reason for Referral * Consultation (Routine) - Authorized Specialty Diagnoses / Procedures Referred By Hu melo Referred To Contact Gastroenterology Diagnoses Unintentional weight loss Brittnee Hanna MD [address] [place] [address] Phone: tel: fax: [facility] Referral ID Status Reason Start Date Expiration Date Visits Requested Visits Authorized [id number] Authorized Specialty Services Required 09/07/2024 09/07/2025 1 1 * Consultation (Routine) - Authorized Specialty Diagnoses / Procedures Referred By Hu melo Referred To Contact Endocrinology Diagnoses Type 2 diabetes mellitus with hyperglycemia, with long-term current use of insulin ([facility]) Brittnee Hanna MD [address] [place] [address] Phone: tel: fax: [facility] Referral ID Status Reason Start Date Expiration Date Visits Requested Visits Authorized [id number] Authorized Specialty Services Required 09/08/2024 09/08/2025 6 6 Encounter Details Date Type Department Care Team (Late st Contact Info) Description 09/07/2024 Orders Only [facility] MEDICINE [address] [place] [address] Brittnee Hanna MD [address] [place] [address] Type 2 diabetes mellitus with hyperglycemia, with long-term current use of insulin ([facility]) (Primary Dx); Unintentional weight loss Social History Tobacco Use Types Packs/Day Years [...] Description 09/21/2024 3:30 PM EST Office Visit [facility] MEDICINE [address] [place] [address] Brittnee Hanna MD [address] [place] [address] 11/07/2024 1:00 PM EDT Office Visit [facility] OPTOMETRY [address] [place] [address] Martina Mancia OD 230 [place] [address] Scheduled Referrals Name Type Priority Associated Diagnoses Order Schedule Referral to Endocrinology Outpatient Referral Routine Type 2 diabetes mellitus with hyperglycemia, with long-term current use of insulin ([facility]) Expected: 09/07/2024 (Approximate), Expires: 09/07/2025 Referral to Gastroenterology Outpatient Referral Routine Unintentional weight loss Expected: 09/07/2024 (Approximate), Expires: 09/07/2025 documented as of this encounter Goals Goal Patient Goal Type Associated Problems Recent Progress Patient-Stated? Author Blood Pressure < 140/90 Blood Pressure 112/58(2024 3:02 PM EST) No Di Meyers, Bo Hemoglobin A1c < 7 Result Component 11.9(07/27/20 24 2:31 PM EST) No Di Meyers PharmD documented as of this encounter Visit Diagnoses Diagnosis Type 2 diabetes mellitus with hyperglycemia, with long-term current use of insulin ([facility])- Primary Unintentional weight loss Loss of weight documented in this encounter Additional Health Concerns Assessment Noted Time PHQ-9 Depression Total Score: 15 024 10:35 AM EDT documented as of this encounter Care Teams Automation Test Developer Relationship Specialty Start Date End Date Brittnee Hanna MD [address] [place], [place] PCP - General Family Medicine 08/17/18 Martina Mancia, JONATHON [address] [place] [address] Optometry 07/26/24 Donna Sutton Cloth Folder MachinePress Officer 05/06/24 documented as of this encounter
--- OUTSIDE RECORDS SUMMARY | 2024-09-19 10:25 | XMS_ITS | Encounter Summary ---
Author Organization [employer] Address [address] [place] [address] Care Team Providers Care Associate Software Engineer Name Role Phone Brittnee Hanna MD Primary Care Provider +- [phone] Di Hyde PharmD Unavailable Martina Mancia OD Unavailable [phone] Encounter Details Date Type Department Care Team ([facility] st Contact Info) Description 05/24/2024 Orders Only [facility] [address] [place] [address] Brittnee Hanna MD [address] [place] [address] Social History Tobacco Use Types Packs/Day Years [...] Recorded Patient Health Questionnaire-2 Score 4 04/07/2024 Comments Unknown Sex and Gender Information Value [...] Description 09/21/2024 3:30 PM EST Office Visit [facility] [address] [place] [address] Brittnee Hanna MD 230 [place] [address] 11/07/2024 1:00 PM EDT Office Visit [facility] OPTOMETRY [address] [place] [address] Martina Mancia, OD [address] [place] [address] documented as of this encounter Goals Goal [...] documented as of this encounter Care Teams Associate Software Engineer Relationship Specialty Start Date End Date Brittnee Hanna MD [address] [place] [address] [phone] PCP - General Family Medicine 08/17/18 Di Hyde PharmD [address] [place] [address] [phone] Pharmacist Internal Medicine 01/06/23 08/31/24 Martina Mancia OD [address] [place] [address] [phone] Optometry 07/26/24 Donna Sutton Ornamental Bronze WorkerDry Cleaner 05/06/24 documented as of this encounter
--- OUTSIDE RECORDS SUMMARY | 2024-09-19 10:25 | XMS_ITS | Encounter Summary ---
Author Organization [employer] Address [address] [place] [address] Care Team Providers Care Wedding Makeup Artist Name Role Phone Brittnee Hanna MD Primary Care Provider +- [phone] Di Hyde PharmD Unavailable Martina Mancia OD Unavailable [phone] Encounter Details Date Type Department Care Team ([facility] st Contact Info) Description 04/27/2024 Abstract [facility] MEDICINE [address] [place] [address] Brittnee Hanna MD 230 [place], [place] [phone] Social History Tobacco Use Types Packs/Day Years [...] Description 09/21/2024 3:30 PM EST Office Visit [facility] MEDICINE [address] [place] [address] Brittnee Hanna MD [address] [place] [address] 11/07/2024 1:00 PM EDT Office Visit [facility] OPTOMETRY [address] [place] [address] Martina Mancia, OD 230 [place] [address] documented as of this encounter Goals Goal [...] documented as of this encounter Care Teams Wedding Makeup Artist Relationship Specialty Start Date End Date Brittnee Hanna MD [address] [place] [address] PCP - General Family Medicine 08/17/18 Di Hyde, Bo [address] [place] [address] [phone] Pharmacist Internal Medicine 01/06/23 08/31/24 Martina Mancia OD [address] [place] [address] [phone] Optometry 07/26/24 Donna Sutton Hat Brim CurlerOyster Tonger 05/06/24 documented as of this encounter
--- OUTSIDE RECORDS SUMMARY | 2024-09-19 10:25 | XMS_ITS | Encounter Summary ---
Author Organization [employer] Address [address] [place] [address] Care Team Providers Care Vinyl Installer Name Role Phone Brittnee Hanna MD Primary Care Provider [phone]- [phone] Di Hyde PharmD Unavailable [phone] Martina Mancia OD Unavailable Reason for Visit * Reason Comments Med Refill Encounter Details Date Type Department Care Team (Late st Contact Info) Description 07/21/2023 Refill [facility] MED & PEDS [address] [place], [place] [phone] Brittnee Hanna MD [address] [place], [place] [phone] Mild intermittent asthma without complication Social History Tobacco Use Types Packs/Day Years Used Date Smoking Tobacco: Some Days Cigarettes Passive Smoke Exposure: Current Smokeless Tobacco: Never Depression Answer Date Recorded Patient Health Questionnaire-9 Score 21 01/08/2023 Housing Stability Answer Date Recorded What is your housing situation today? I have francisco jones 06/01/[address] you li ve. Do you have problems with any of the following? None of the above 06/01/2023 Food Insecurity Answer Date Recorded Within the past 12 months, y ou worried that your food would run out before you got money to buy more: Never True 06/01/2023 Within the past 12 months,th e food you bought just didn't last and you didn't have enough money to get more: Never True Transportation Answer Date Recorded In the past 12 months, has l ack of transportation kept you from medical appts, meetings, work or from getting things needed for daily living? No 06/01/2023 Utilities Answer Date Recorded In the past 12 months, has t he electric, gas, oil or water company threatened to shut off services in your home? No 06/01/2023 Depression Answer Date Recorded Patient Health Questionnaire-2 [...] Description 09/21/2024 3:30 PM EST Office Visit [facility] MEDICINE [address] [place] [address] Brittnee Hanna MD 230 [place] [address] 11/07/2024 1:00 PM EDT Office Visit [facility] OPTOMETRY [address] [place] [address] Gavino, Martina, OD [address] [place] [address] documented as of this encounter Goals Goal Patient Goal Type Associated Problems Recent Progress Patient-Stated? Author Hemoglobin A1c < 7 Result Component 11.9( 4 2:31 PM EST) No Di Hyde, PharmD documented as of this encounter Visit Diagnoses Diagnosis Mild intermittent asthma without complication documented in this encounter Additional Health Concerns Assessment Noted Time PHQ-9 Depression Total Score: 21 023 9:47 AM EDT documented as of this encounter Care Teams Vinyl Installer Relationship Specialty Start Date End Date Brittnee Hanna MD [address] [place] [address] PCP - General Family Medicine 08/17/18 Di Hyde, PharmD [address] [place] [address], [place] [address] Pharmacist Internal Medicine 01/06/23 08/31/24 Martina Mancia OD [address] [place] [address] Optometry 07/26/24 Donna Sutton Newspaper VendorHeat Treat Worker 05/06/24 documented as of this encounter
--- OUTSIDE RECORDS SUMMARY | 2024-09-19 10:25 | XMS_ITS | Encounter Summary ---
Author Organization [employer] Address [address] [place] [address] Care Team Providers Care Ground Products Director Name Role Phone Brittnee Hanna MD Primary Care Provider + [phone] Di Hyde PharmD Unavailable [phone] Martina Mancia OD Unavailable [phone] Encounter Details Date Type Department Care Team (Late Contact Info) Description 08/25/2022 Orders Only [facility] CH[facility] MED & PEDS [address] [place] [address] Jeana Vital LPN Social History Tobacco Use Types Packs/Day Years [...] Upcoming Encounters Date Type Department Care Team ([facility] Contact Info) Description 09/21/2024 3:30 PM EST Office Visit [facility] MEDICINE [address] [place] [address] Brittnee Hanna MD [address] [place], [place] [phone] 11/07/2024 1:00 PM EDT Office Visit [facility] OPTOMETRY [address] [place], [place] [phone] Martina Mancia, OD [address] [place] [address] documented as of this encounter Procedures Procedure Name Priority Date/Time Associated Diagnosis Comments HEPATIC FUNCTION PANEL Routine 07/21/2023 12:47 PM EST documented in this encounter Results * (ABNORMAL) Hepatic Function Panel (07/21/2023 12:47 PM EST) Bilirubin, Total 0.3 0.0 - 1.0 mg/dL [facility] Bilirubin, Direct 0.1 0.0 - 0.5 mg/dL [facility] Aspartate Amino Transferase 18 5 - 31 U/L [facility] Alanine Aminotransferase 33(H) 0 - 31 U/L [facility] Total Protein 7.4 6.5 - 8.0 g/dL [facility] Albumin Level 4.3 3.5 - 5.0 g/dL [facility] Alkaline Phosphatase 142(H) 39 - 117 U/L [facility] 07/21/2023 12:4 7 PM EST 07/21/2023 3:59 PM EST Brittnee Hanna MD LAB BLOOD ORDERABLES Final Result [facility] [address] [place] [address] [phone] documented in this encounter Visit Diagnoses Not on filedocumented in this encounter Care Teams Ground Products Director Relationship Specialty Start Date End Date Brittnee Hanna MD [address] [place] [address] PCP - General Family Medicine 08/17/18 Di Hyde PharmD [address] [place] [address] Pharmacist Internal Medicine 01/06/23 08/31/24 Martina Mancia OD [address] [place] [phone] Optometry 07/26/24 Donna Sutton Gin ClerkAsp Net Software Developer 05/06/24 documented as of this encounter
--- OUTSIDE RECORDS SUMMARY | 2024-09-19 10:25 | XMS_ITS | Encounter Summary ---
Author Organization [employer] Address [address] [place] [address] Care Team Providers Care Data Acquisition Technician Name Role Phone Brittnee Hanna MD Primary Care Provider [phone] Di Hyde PharmD Unavailable Martina Mancia OD Unavailable [phone] Reason for Visit * Reason Onset Date Comments Appointment Request 07/18/2024 Encounter Details Date Type Department Care Team ([facility] st Contact Info) Description 07/18/2024 Telephone [facility] MEDICINE [address] [place] [address] Brittnee Hanna MD [address] [place], [place] [phone] Appointment Request Social History Tobacco Use Types [...] encounter Miscellaneous Notes * Telephone Encounter - Yocasta Dillard - 07/18/2024 12:20 PM EST TC from pt requesting to r/s 06/22/24 appt . documented in this encounter Plan of Treatment Upcoming Encounters Date Type Department Care Team (Late st Contact Info) Description 09/21/2024 3:30 PM EST Office Visit [facility] MEDICINE [address] [place] [address] Brittnee Hanna MD [address] [place] [address] 11/07/2024 1:00 PM EDT Office Visit [facility] OPTOMETRY [address] [place] [address] Martina Mancia OD [address] [place] [address] documented as of this encounter Goals Goal [...] documented as of this encounter Care Teams Data Acquisition Technician Relationship Specialty Start Date End Date Brittnee Hanna MD [address] [place] [address] PCP - General Family Medicine 08/17/18 Di Hyde PharmD [address] [place] [phone] Pharmacist Internal Medicine 01/06/23 08/31/24 Martina Mancia OD [address] [place] [phone] Optometry 07/26/24 Donna Sutton Shoes Hand SewerChemical Technician 05/06/24 documented as of this encounter
--- OUTSIDE RECORDS SUMMARY | 2024-09-19 10:25 | XMS_ITS | Encounter Summary ---
Author Organization [employer] Address [address] [place] [address] Care Team Providers Care Individual Small Group Instructor Name Role Phone Brittnee Hanna MD Primary Care Provider [phone]- [phone] Di Hyde PharmD Unavailable Martina Mancia OD Unavailable Reason for Visit * Reason Comments Med Refill Encounter Details Date Type Department Care Team ([facility] Contact Info) Description 05/12/2023 Refill [facility] CHC MED & PEDS [address] [place] [address] Cipriano Campa MD [address] [place] [address] Type 2 diabetes mellitus with other circulatory complication, with long-term current use of insulin ([facility]) Social History Tobacco Use Types Packs/Day [...] Upcoming Encounters Date Type Department Care Team ([facility] Contact Info) Description 09/21/2024 3:30 PM EST Office Visit [facility] MEDICINE [address] [place] [address] Brittnee Hanna MD [address] [place] [address] 11/07/2024 1:00 PM EDT Office Visit [facility] OPTOMETRY [address] [place] [address] Martina Mancia, JONATHON [address] [place] [address] documented as of this encounter Goals Goal Patient Goal Type Associated Problems Recent Progress Patient-Stated? Author Hemoglobin A1c < 7 Result Component 11.9( 4 2:31 PM EST) No Di Hyde, Bo documented as of this encounter Visit Diagnoses Diagnosis Type 2 diabetes mellitus with other circulatory complication, with long-term current use of insulin ([facility]) documented in this encounter Additional Health Concerns Assessment Noted Time PHQ-9 Depression Total Score: 21 023 9:47 AM EDT documented as of this encounter Care Teams Individual Small Group Instructor Relationship Specialty Start Date End Date Brittnee Hanna MD [address] [place] [address] PCP - General Family Medicine 08/17/18 Di Hyde, Bo [address] [place] [phone] Pharmacist Internal Medicine 01/06/23 08/31/24 Martina Mancia, JONATHON [address] [place] [address] Optometry 07/26/24 Donna Sutton Guest AttendantProfessional Security Officer 05/06/24 documented as of this encounter
--- OUTSIDE RECORDS SUMMARY | 2024-09-19 10:25 | XMS_ITS | Encounter Summary ---
Author Organization [facility] Address [address] [place] [address] Care Team Providers Care Visual Inspector Name Role Phone Brittnee Hanna MD Primary Care Provider [phone]- [phone] Di Hyde PharmD Unavailable Martina Mancia OD Unavailable Encounter Details Date Type Department Care Team ([facility] Contact Info) Description 09/22/2022 Abstract [facility] MEDICINE [address] [place] [address] Brittnee Hanna MD [address] [place] [address] [phone] Social History Tobacco Use Types Packs/Day Years Used Date Smoking Tobacco: Never Smokeless Tobacco: Never Comments Unknown Sex and [...] suspected to have Coronavirus/COVID-19? No / Unsure 09/22/2022 9:33 AM EST documented as of this encounter Plan of Treatment Upcoming Encounters Date Type Department Care Team ([facility] Contact Info) Description 09/21/2024 3:30 PM EST Office Visit [facility] MEDICINE [address] [place] [address] [phone] Brittnee Hanna MD [address] [place] [address] [place] [phone] 11/07/2024 1:00 PM EDT Office Visit [facility] OPTOMETRY [address] [place], [place] [phone] Gavino, Martina, OD [address] [place] [address] documented as of this encounter Procedures Procedure Name Priority Date/Time Associated Diagnosis Comments TSH Routine 06/05/2022 LIPID PANEL, STANDARD Routine 06/05/2022 BASIC METABOLIC PANEL Routine 06/05/2022 PAP SMEAR Routine 05/16/2022 12:00 AM EDT COLONOSCOPY Routine 08/21/2020 HIV-1 ANTIBODY, EIA Routine 04/25/2019 HM MAMMOGRAPHY Routine 06/14/2018 HEPATITIS C AB W/REFL TO HCV RNA, QN, PCR Routine 02/22/2014 documented in this encounter Results * (ABNORMAL) TSH (06/05/2022) TSH 1.59(A) 4.00 - 5.40 mIU/L Blood Venous blood specimen / Unknown Historical Provider MD LAB BLOOD ORDERABLES Emelia l Result * Basic Metabolic Panel (06/05/2022) Creatinine 1.0 0.5 - 1.1 mg/dL Blood Venous blood specimen / Unknown Historical Provider LAB BLOOD ORDERABLES Emelia l Result * (ABNORMAL) Lipid Panel, Standard (06/05/2022) Triglycerides 163(A) 40 - 160 mg/dL Cholesterol 209(A) 0 - 200 mg/dL HDL Cholesterol 70 35 - 70 mg/dL LDL Cholesterol 111 mg/dL Blood Venous blood specimen / Unknown Result [facility] Provider LAB BLOOD ORDERABLES Emelia l Result * Pap Smear (05/16/2022 12:00 AM EDT) Swab Result [facility] Provider LAB CYTOLOGY ORDERABLES F inal Result [facility] * Hm Colonoscopy (08/21/2020) Colonoscopy hyperplastic polyp Dr. Olivarez Result [facility] Provider HEALTH MAINTENANCE Final Result * HIV-1 antibody, EIA (04/25/2019) External HIV-1 Antibody Negative Blood Venous blood specimen / Unknown Result [facility] Provider LAB BLOOD ORDERABLES Emelia l Result * Hm Mammography (06/14/2018) Mammogram normal Anatomical Region Laterality Modality Other Result [facility] Provider HEALTH MAINTENANCE Final Result * Hepatitis C Antibody with Reflex to HCV, RNA, Quantitative, Real-Time PCR (02/22/2014) Blood Venous blood specimen / Unknown 02/22/2014 Result [facility] Provider LAB BLOOD ORDERABLES Emelia l Result documented in this encounter Visit Diagnoses Not on filedocumented in this encounter Additional Health Concerns Assessment Noted Time PHQ-9 Depression Total Score: 0 09/22/19 23 9:47 AM EST documented as of this encounter Care Teams Visual Inspector Relationship Specialty Start Date End Date Brittnee Hanna MD [address] [place] [address] PCP - General Family Medicine 08/17/18 Di Hyde, ShabbirD [address] [place] [address] Pharmacist Internal Medicine 01/06/23 08/31/24 Martina Mancia OD [address] [place] [address] Optometry 07/26/24 Donna Sutton Procurement CoordinatorPhlebotomist Medical Lab Assistant 05/06/24 documented as of this encounter
[2024-09-19 11:34] LABS: MANUAL DIFF FLAG NO
[2024-09-19 11:39] LABS: Basophils Percent Auto 0.3 % (0-2); Eosinophils Absolute Auto 0.1 X10*3/uL (0.0-0.4); Hematocrit 35.6 % (37.0-47.0); Hemoglobin 12.1 g/dl (12.0-16.0); Imm Gran Abs Auto 0.02 X10*3/uL (0.00-0.03); Imm Gran Pct Auto 0.3 % (0.0-0.4); Lymphocytes Absolute Auto 1.6 X10*3/uL (1.2-4.9); Lymphocytes Percent Auto 21.7 % (20-40); Mean Corpuscular Hemoglobin 29.2 pg (27.0-33.0); Mean Platelet Volume 10.6 fL (9.4-12.3); Monocytes Absolute Auto 0.5 X10*3/uL (0.1-1.2); Monocytes Percent Auto 6.3 % (2-11); Neutrophils Percent Auto 69.4 % (45-73); Platelet Count 436 X10*3/uL (160-400); Red Blood Count 4.14 X10*6/uL (4.20-5.50); Red Cell Distribution Width 11.5 % (11.0-16.0); White Blood Count 7.1 X10*3/uL (4.8-10.8)
[2024-09-19 12:11] LABS: Alanine Aminotransferase 26 U/L (0-31); Alkaline Phosphatase 108 U/L (39-117); Aspartate Amino Transferase 23 U/L (5-31); Bilirubin Direct 0.2 mg/dL (0.0-0.5); Bilirubin Total 0.5 mg/dL (0.0-1.0); Cholesterol 141 mg/dL (<200); HDL Cholesterol 35 mg/dL (>40); LDL Cholesterol Calculated 65 mg/dL (<100); Total Protein 7.4 g/dL (6.5-8.0); Triglycerides 206 mg/dL (<150)
[2024-09-19 12:43] LABS: Alanine Aminotransferase 27 U/L (0-31); Albumin Level 4.1 g/dL (3.5-5.0); Alkaline Phosphatase 108 U/L (39-117); Anion Gap 12 (12-20); Aspartate Amino Transferase 23 U/L (5-31); Bilirubin Direct 0.1 mg/dL (0.0-0.5); Bilirubin Total 0.5 mg/dL (0.0-1.0); Blood Urea Nitrogen 18 mg/dL (9-16); Calcium 8.9 mg/dL (8.4-10.2); Carbon Dioxide 26 mmol/L (22-29); Chloride 99 mmol/L (96-108); Cholesterol 142 mg/dL (<200); Estimated Glomerular Filt Rate 44; Glucose Fasting 290 mg/dL (60-99); Glucose Random 288 mg/dL (60-115); HDL Cholesterol 37 mg/dL (>40); LDL Cholesterol Calculated 64 mg/dL (<100); Sodium 134 mmol/L (135-145); Thyroid Stimulating Hormone 0.76 uIU/mL (0.32-4.0); Total Protein 7.5 g/dL (6.5-8.0); Triglycerides 209 mg/dL (<150)
[2024-09-19 12:45] LABS: Microalbum/Creatinine Ratio Ur 10.5 ug/mg cr (<30)
== END 2024-09-19 09:51 | disposition home or self-care (01) ==
LOC: HO.HHCL 09:50
PROVIDERS: Family Medicine; Visit Provider Registered Nurse Psychiatric/Mental Health
DX: E11.65 Type 2 diabetes mellitus with hyperglycemia (principal); E78.5 Hyperlipidemia, unspecified; Z79.4 Long term (current) use of insulin
CPT/HCPCS: 36415; 80053; 80061; 80076; 82043; 82248; 82570; 84443; 85025

== ENCOUNTER 2024-10-04 10:13 | Outpatient (AMB) | payer MEDICAID, SELFPAY ==
--- NOTE | 2024-10-04 10:16 | MHC.OFFVIS ---
Vital Signs 10/04/24 10:21 Height 5 ft 2 in Weight 122 lb 9.232 oz BMI 22.4 BP 92/58 L Blood Pressure Location Rt brachial Position Sitting Pulse 73 Pulse Source Palpation Intake Visit Reasons: T2DM w/hyperglycemia Intake Note: New patient present today to establish care for Diabetes management. Last Diabetic Eye exam: Has an appointment October 19 2024 Last Podiatry Visit: Does not see a Store Loss Prevention Manager, patient reports she has a lot of itching on plantar feet. Random Glucose: 353 mg/dl HgA1C: 12.7% 10/04/2024 Weed Science Research Technician Required: Yes Weed Science Research Technician Language: Substation Operator Apprentice Services: Weed Science Research Technician Present Weed Science Research Technician Name: Edgar [id number] Information Interpreted: non-clinical & clinical Accompanied by: Self / Same As Patient Allergies shellfish derived [SHELLFISH DERIVED] Allergy (Severe, Verified 10/04/24 10:23) Swelling Penicillins Allergy (Mild, Verified 10/04/24 10:23) UNKNOWN - RXN CHILD naproxen [NAPROXEN] Allergy (Unknown, Verified 10/04/24 10:23) CAN'T TAKE PER HER PROGRESS DEVELOPER seasonal allergies Allergy (Mild, Uncoded 10/04/24 10:23) Itchy Eyes HPI Comments Details: This is a 59-year-old female with a past medical history of type 2 diabetes, depression, CKD stage 3, asthma-COPD, CAD (STEMI 04/15/2014 requiring PCI with JENISE to proximal LAD), decreased LVEF, gastritis, dizziness and falls and tobacco use presenting for an initial consult for diabetic management. 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 She was diagnosed with type 2 diabetes 17 years ago. Family history of Type I: none Family history of Type 2: parents History of DKA - admitted 03/17/2022 for DKA in the setting of acute cystitis. She uses [address]. She uses the reader with this, but she forgot it today. Per patient she scans 4 times a day. Hemoglobin a1c today 10/04/24 is 12.7%. Current medication regimen: Lantus 36 nightly, insulin lispro 14 before meals (eats 3 meals daily, and she injects insulin 15 minutes before she eats) Past medications: Patient denies Compliance issues: patient denies Diet: Breakfast-oatmeal, water apple or banana for snack Lunch-tuna sandwich, water Dinner-potato, plantains, fish, chicken, pasta or rice Snacks/desserts:none No alcohol, soda or juice Hypoglycemia symptoms: rarely, treats with apple juice Hyperglycemia symptoms: tired, dry mouth, polydipsia, polyuria Eye exam: October 2024 scheduled Microvascular complications: neuropathy, nephropathy, no known retinopathy Macrovascular complications: Coronary artery disease Hypertension: Treated with lisinopril, isosorbide mononitrate, metoprolol, amlodipine. Her blood pressure is soft today, but she said she did not drink very much yet. She denies dizziness, chest pain, shortness of breath. Hyperlipidemia: treated with atorvastatin ROS: Constitutional: + weight loss in the last several months, and she has discussed it with her PCP and been referred to Gastroenterology, denies fevers, chills or night sweats. Eyes: Denies vision changes Respiratory: No shortness of breath, cough or sputum production. Cardiovascular: No chest pain, chest pressure or chest discomfort. No palpitations or pedal edema. Gastrointestinal: Denies nausea, vomiting, diarrhea, abdominal pain, acid reflux. Denies constipation. Neurologic: No headache or dizziness. She endorses tingling pain in her toes. It comes and goes. She is on gabapentin. Endocrine: See HPI Physical exam: Constitutional: Alert, in no distress. Eyes: Pupils are equal, round and reactive to light. Neck: Supple, Full range of motion. No lymphadenopathy. No palpable thyroid masses. Respiratory: Clear to auscultation. Cardiovascular: S1 S2 regular. No murmurs. No carotid bruits. Right foot: Warm and well perfused. No clubbing, cyanosis or edema. Palpable DP pulse. Intact vibratory sensation. Intact sensation to monofilament. Left foot: Warm and well perfused. No clubbing, cyanosis or edema. Palpable DP pulse. Intact vibratory sensation. Intact sensation to monofilament. [facility] Medical History (Updated 10/04/24 @ 10:38 by GEMA Mackey) Type II diabetes with remote computer terminal operator use of insulin Symptomatic anemia GI bleed Diabetes Anxiety Depression Asthma History of heart attack CAD (coronary artery disease) Hypercholesteremia HTN (hypertension) Surgical History Stented coronary artery Hx of colonoscopy (08/26/14) Family History Father Diabetes Hypercholesteremia HTN (hypertension) Mother HTN (hypertension) Diabetes Hypercholesteremia Brother HTN (hypertension) Diabetes Social History Household Members: None Housing: House Do you presently have visiting nurse or other home services: Yes (MOTOR COACH BUS DRIVER) Alcohol intake: current Alcohol intake frequency: does not drink Patient Tobacco Use Status: Former Tobacco user service: No Current occupational status: disabled Physical Exam Vital Signs: Last Vital Signs Pulse 73 10/04/24 10:21 BP 92/58 L 10/04/24 10:21 BMI result Body Mass Index 22.4 Results AMB Hemoglobin A1c AMB Hemoglobin A1c 12.7 % Last Edit by MONTANA Barker on 10/04/24 10:45 Results Reviewed Results Reviewed: Laboratory Last Values Glucose (Clinic) 353 mg/dL (60-115) H* 10/04/24 10:33 Laboratory Tests 01/07/22 06/18/24 09/19/24 13:22 12:51 10:00 Creatinine 0.94 1.23 Estimated GFR > 60 44 B-Natriuretic Peptide 128 H Triglycerides 206 H Cholesterol 141 LDL Cholesterol, Calc 65 HDL Cholesterol 35 L TSH 0.76 Urine Creatinine 161.00 Urine Microalbumin 17.0 Microalb/Creat Ratio 10.5 Assessment & Plan Assessment & Plan (1) Type II diabetes with assisted use of insulin: Code(s): E11.9 - Type 2 diabetes mellitus without complications; Z79.4 - exterminator helper termite (current) use of insulin Category: Medical Plan In summary this is a 59-year-old diabetic female with poor glycemic control on basal bolus insulin. Advised patient to bring her CGM to all appointments so we can review data and adjust her medications. Increase Lantus from 36 to 42 units nightly. If fasting blood sugars in the morning are still over 180, increase to 46 units after 3 days. Increase insulin lispro to 16 units before meals. Addition of SGLT2 considered, but currently blood sugars are quite high, and this would put her at increased risk of genitourinary infections. I would like to start her on a GLP 1, but we will need to monitor closely for GI side effects and weight loss. It is possible that weight loss is related to her hyperglycemia. Prior to initiating new medication I would like to screen for type 1 diabetes given normal BMI and weight loss. She will have blood work done today. She denies contraindications to GLP 1. If you experience low blood sugar, treat this by eating a chewable fruit candy like skittles or jelly beans (about 8 pieces), 4 ounces (1/2 cup) of fruit juice (not diet), 1 tablespoon of honey or 4 glucose tablets or a 15 g glucose gel packet. If your blood sugar is under 55, take double the amount of one of the above. Recheck your blood sugar in 15 minutes. I prescribed glucose gel since she is edentulate. Patient should not drive if she does not have a reliable way to check her blood sugar or has symptoms of hypoglycemia. Discussed pathophysiology of Type II Diabetes Mellitus with the patient in detail.? I explained the remote computer terminal operator risks and complications associated with uncontrolled diabetes including nephropathy, neuropathy, peripheral vascular disease, retinopathy, increased risk of heart disease and stroke.? Refer to cosmetology educator and process artist. Follow up in 2 weeks for diabetes. Orders: Orders AMB Hemoglobin A1c Today E11.9 - Type 2 diabetes mellitus without complications, Z79.4 - MCFP (current) use of insulin C Peptide Today E11.9 - Type 2 diabetes mellitus without complications, Z79.4 - exterminator helper termite (current) use of insulin Glutamic acid decarboxylase Ab Today E11.9 - Type 2 diabetes mellitus without complications, Z79.4 - MCFP (current) use of insulin Islet Cell Antibody Scrn/Titer Today E11.9 - Type 2 diabetes mellitus without complications, Z79.4 - exterminator helper termite (current) use of insulin Referrals Diabetes Education Referral E11.65 - Type 2 diabetes mellitus with hyperglycemia Food Photographer Nutrition Referral E11.65 - Type 2 diabetes mellitus with hyperglycemia Medications: New dextrose (TRUEplus Glucose) until symptoms of low blood sugar are controlled 15 grams (32 mL) PO Q15M PRN 128 mL 3RF hypoglycemia Patient Instructions: If you experience low blood sugar, treat this by eating a chewable fruit candy like skittles or jelly beans (about 8 pieces), 4 ounces (1/2 cup) of fruit juice (not diet), 1 tablespoon of honey or 4 glucose tablets. If your blood sugar is under 55, take double the amount of one of the above. Recheck your blood sugar in 15 minutes. Increase Lantus from 36 units to 42 units. If fasting blood sugars in the morning are still over 180, increase to 46 units after 3 days. Increase insulin lispro to 16 units before meals. Please have labwork done today. You will be contacted to see the thread roller and cosmetology educator. Si experimenta un nivel bajo de az?car en la mariah, tr?telo comiendo un fly de fruta masticable freddy bolos o gominolas (aproximadamente 8 piezas), 4 onzas (1/2 taza) de jugo de fruta (no diet?yancy), 1 cucharada de miel o 4 tabletas de glucosa. Si campbell nivel de az?car en mariah es inferior a 55, tome el doble de moreno de los anteriores. Vuelva a controlar campbell nivel de az?car en la mariah en 15 minutos. Incrementar Lantus de 36 unidades a 42 unidades. Si los niveles de az?car en mariah en ayunas por la ma?ryley todav?a est?n por encima de 180, aumente a 46 unidades despu?s de 3 d?as. Aumente la insulina lispro a 16 unidades antes de las comidas. Por favor, keon el an?lisis de laboratorio hoy. Se comunicar? con usted para clarence al dietista y al educador en diabetes. Coding Level of Care Code New Pt Level 5 (71305) Complex EM visit Add On G2211 Diagnoses Type II diabetes with remote computer terminal operator use of insulin E11.9; Z79.4 Time Spent (min) 66 Comment Direct patient care, chart review, completing documentation
[2024-10-04 10:21] VITALS: BP 92/58; PULSE 73; BMI 22.4
[2024-10-04 10:39] LABS: Glucose, Whole Blood 353 mg/dL (60-115)
--- OUTSIDE RECORDS SUMMARY | 2024-10-04 11:10 | XMS_ITS | Encounter Summary ---
Author Organization [facility] Address [address] [place] [address] Care Team Providers Care Cert Pharmacy Tech Name Role Phone Brittnee Hanna MD Primary Care Provider +[phone]- [phone] Martina Mancia OD Unavailable Encounter Details Date Type Department Care Team ([facility] Contact Info) Description 09/21/2024 Telephone [facility] MEDICINE [address] [place], [place] [phone] Brittnee Hanna MD [address] [place] [address] Social History Tobacco Use Types Packs/Day Years [...] encounter Miscellaneous Notes * Telephone Encounter - Laurita Otto - 09/21/2024 4:26 PM EST Pt no showed to appt on 09/21/2024 . documented in this encounter Plan of Treatment Upcoming Encounters Date Type Department Care Team (Late st Contact Info) Description 11/07/2024 1:00 PM EDT Office Visit [facility] OPTOMETRY [address] [place] [address] Martina Mancia, OD [address] [place] [address] documented as of this encounter Goals Goal [...] documented as of this encounter Care Teams Cert Pharmacy Tech Relationship Specialty Start Date End Date Brittnee Hanna MD [address] [place] [address] PCP - General Family Medicine 08/17/18 Martina Mancia OD [address] [place] [address] Optometry 07/26/24 Donna Sutton Milling Machine TenderElectrical Accessories Ii Assembler 05/06/24 documented as of this encounter
--- OUTSIDE RECORDS SUMMARY | 2024-10-04 11:10 | XMS_ITS | Encounter Summary ---
Author Organization [employer] Address [address] [place] [address] Care Team Providers Care Dental Surgeon Name Role Phone Brittnee Hanna MD Primary Care Provider +1- [phone] Martina Mancia OD Unavailable [phone] Encounter Details Date Type Department Care Team ([facility] st Contact Info) Description 09/19/2024 Orders Only [facility] MEDICINE [address] [place], [place] [phone] Brittnee Hanna MD [address] [place] [address] Hypokalemia (Primary Dx) Social History Tobacco Use Types Packs/Day Years [...] Description 11/07/2024 1:00 PM EDT Office Visit [facility] OPTOMETRY [address] [place] [address] [phone] Martina Mancia OD [address] [place] [address] documented as of this encounter Goals Goal Patient Goal Type Associated Problems Recent Progress Patient-Stated? Author Blood Pressure < 140/90 Blood Pressure 112/58(2024 3:02 PM EST) No Piers-Gambl e, Di, PharmD Hemoglobin A1c < 7 Result Component 11.9(07/27/20 2:31 PM EST) No Piers-Gambl e, Di, PharmD documented as of this encounter Visit Diagnoses Diagnosis Hypokalemia- Primary Hypopotassemia documented in this encounter Additional Health Concerns Assessment Noted Time PHQ-9 Depression Total Score: 15 024 10:35 AM EDT documented as of this encounter Care Teams Dental Surgeon Relationship Specialty Start Date End Date Brittnee Hanna MD [address] [place] [address] PCP - General Family Medicine 08/17/18 Martina Mancia OD [address] [place] [address] Optometry 07/26/24 Donna Sutton Research Professor Of BiostatisticsChoke Setter 05/06/24 documented as of this encounter
--- OUTSIDE RECORDS SUMMARY | 2024-10-04 11:10 | XMS_ITS | Encounter Summary ---
Author Organization [employer] [facility] Address [address] [place] [address] Care Team Providers Care Capsule Filling Machine Operator Name Role Phone Brittnee Hanna MD Primary Care Provider +- [phone] Di Hyde PharmD Unavailable Martina Mancia OD Unavailable Reason for Visit * Reason Comments Med Refill Encounter Details Date Type Department Care Team (Late st Contact Info) Description 02/18/2023 Refill [facility] MEDICINE [address] [place] [address] Brittnee Hanna MD [address] [place], [place] [phone] Type 2 diabetes mellitus with other circulatory complication, with long-term current use of insulin ([facility]) Social History Tobacco Use Types Packs/Day Years [...] Description 11/07/2024 1:00 PM EDT Office Visit [facility] OPTOMETRY [address] [place] [address] Martina Mancia OD [address] [place] [address] documented as of this encounter Goals Goal Patient Goal Type Associated Problems Recent Progress Patient-Stated? Author Hemoglobin A1c < 7 Result Component 11.9( 2:31 PM EST) No Di Hyde, PharmD documented as of this encounter Visit Diagnoses Diagnosis Type 2 diabetes mellitus with other circulatory complication, with long-term current use of insulin ([facility]) documented in this encounter Additional Health Concerns Assessment Noted Time PHQ-9 Depression Total Score: 21 023 9:47 AM EDT documented as of this encounter Care Teams Capsule Filling Machine Operator Relationship Specialty Start Date End Date Brittnee Hanna MD [address] [place] [address] PCP - General Family Medicine 08/17/18 iD Hyde, PharmD [address] [place] [address] Pharmacist Internal Medicine 01/06/23 08/31/24 Martina Mancia OD [address] [place] [address] Optometry 07/26/24 Donna Sutton Master Police DetectiveCarburizing Furnace Operator 05/06/24 documented as of this encounter
--- OUTSIDE RECORDS SUMMARY | 2024-10-04 11:10 | XMS_ITS | Encounter Summary ---
Author Organization [employer] Address [address] 7[address] [place] [address] Care Team Providers Care Kiln Tender Name Role Phone Brittnee Hanna MD Primary Care Provider [phone]- [phone] Di Hyde PharmD Unavailable Martina Mancia OD Unavailable Reason for Visit * Reason Onset Date Comments triage 07/21/2022 Encounter Details Date Type Department Care Team ([facility] st Contact Info) Description 07/21/2022 Telephone [facility] MEDICINE [address] [place] [address] Brittnee Hanna MD [address] [place], [place] [phone] triage Social History Tobacco Use Types Packs/Day [...] and depression since losing MH services with [facility]. Per pt has not had any follow up with therapist or psychiatrist. Was supposed to have an appt on 06/15 but when called to r/s was never answered. Has been without meds. Per pt denies any SI/HI. Just increased anxiety. Pt advised that no appts in clinic tomorrow. Pt to come into [facility] tomorrow to speak with on site [facility] clinician and see if [facility] provider (advised cannot guarantee Dr. Hanna) can [...] accepted this outcome Please contact pt at [phone] speaks Kazakh documented in this encounter Plan of Treatment Upcoming Encounters Date Type Department Care Team (Late st Contact Info) Description 11/07/2024 1:00 PM EDT Office Visit [facility] OPTOMETRY [address] [place] [address] Martina Mancia, OD [address] [place] [address] documented as of this encounter Visit Diagnoses Not on filedocumented in this encounter Care Teams Kiln Tender Relationship Specialty Start Date End Date Brittnee Hanna MD [address] [place], [place] [phone] PCP - General Family Medicine 08/17/18 Di Hyde PharmD [address] [place] [address] [phone] Pharmacist Internal Medicine 01/06/23 08/31/24 Martina Mancia OD [address] [place] [address] [phone] Optometry 07/26/24 Donna Sutton Product ListerSort Supervisor 05/06/24 documented as of this encounter
--- OUTSIDE RECORDS SUMMARY | 2024-10-04 11:10 | XMS_ITS | Encounter Summary ---
Author Organization [employer] Address [address] [place] [address] Care Team Providers Care Operation Shift Supervisor Name Role Phone Brittnee Hanna MD Primary Care Provider [phone]- [phone] Martina Mancia OD Unavailable [phone] Reason for Visit * Reason Onset Date Comments Results 09/19/2024 Encounter Details Date Type Department Care Team ([facility] Contact Info) Description 09/19/2024 Telephone [facility] MEDICINE [address] [place] [address] Leilani Agarwal RN Results Social History Tobacco Use Types Packs/Day Years [...] encounter Miscellaneous Notes * Telephone Encounter - Leilani Agarwal RN - 09/19/2024 2:28 PM EST TC placed to pt but unable to contact or leave a VM as mailbox is not set up yet. TC then placed topt spouse Patrick who will ask the pt to call back [facility] in regards to results below. Will postpone this encounter until 09/20/24 for another attempt. ----- Message from Brittnee Hanna MD sent at 09/19/2024 1:55 PM EST ----- Please let Cynthia know her potassium is low. I am sending potassium to take once a day for 5 days. Thank you. documented in this encounter Plan of Treatment Upcoming Encounters Date Type Department Care Team (Late st Contact Info) Description 11/07/2024 1:00 PM EDT Office Visit [facility] OPTOMETRY [address] [place] [address] Martina Mancia, OD [address] [place] [address] documented as of this encounter Goals Goal Patient Goal Type Associated Problems Recent Progress Patient-Stated? Author Blood Pressure < 140/90 Blood Pressure 112/58(2024 3:02 PM EST) No Piers-Gambl e, Di, PharmD Hemoglobin A1c < 7 Result Component 11.9(07/27/20 24 2:31 PM EST) No Di Meyers, ShabbirD documented as of this encounter Visit Diagnoses Not on filedocumented in this encounter Additional Health Concerns Assessment Noted Time PHQ-9 Depression Total Score: 15 024 10:35 AM EDT documented as of this encounter Care Teams Operation Shift Supervisor Relationship Specialty Start Date End Date Brittnee Hanna MD 230 [place] [address] PCP - General Family Medicine 08/17/18 Martina Mancia OD [address] [place] [address] Optometry 07/26/24 Donna Sutton Manager LaundryInfection Control Practitioner 05/06/24 documented as of this encounter
--- OUTSIDE RECORDS SUMMARY | 2024-10-04 11:10 | XMS_ITS | Encounter Summary ---
Author Organization [employer] Address [address] [place] [address] Care Team Providers Care Plodding Operator Name Role Phone Brittnee Hanna MD Primary Care Provider [phone]- [phone] Martina Mancia OD Unavailable [phone] Reason for Visit * Reason Onset Date Comments Med Refill 09/12/2024 Encounter Details Date Type Department Care Team (Late st Contact Info) Description 09/12/2024 Refill [facility] P[facility] [address] [place], [place] [phone] Brittnee Hanna MD [address] [place] [address] Social History Tobacco Use Types Packs/Day Years [...] PM EDT Office Visit [facility] OPTOMETRY [address] [place] [address] Martina Mancia OD [address] [place] [address] documented as of this encounter Goals Goal [...] documented as of this encounter Care Teams Plodding Operator Relationship Specialty Start Date End Date Brittnee Hanna MD [address] [place] [address] PCP - General Family Medicine 08/17/18 Martina Mancia OD [address] [place] [address] Optometry 07/26/24 Donna Sutton Development System Efficiency ManagerEmbedded Systems Designer 05/06/24 documented as of this encounter
--- OUTSIDE RECORDS SUMMARY | 2024-10-04 11:10 | XMS_ITS | Encounter Summary ---
Author Organization [employer] [facility] Address [address] [place] [address] Care Team Providers Care Business Info Consultant Name Role Phone Brittnee Hanna MD Primary Care Provider [phone]- [phone] Di Hyde PharmD Unavailable Martina Mancia OD Unavailable Encounter Details Date Type Department Care Team ([facility] Contact Info) Description 12/17/2022 Abstract [facility] MEDICINE [address] [place] [address] Brittnee Hanna MD [address] [place] [address] Social History Tobacco Use Types Packs/Day Years [...] Upcoming Encounters Date Type Department Care Team ([facility] Contact Info) Description 11/07/2024 1:00 PM EDT Office Visit [facility] OPTOMETRY [address] [place] [address] Martina Mancia, OD [address] [place] [address] documented as of this encounter Visit Diagnoses Not on filedocumented in this encounter Additional Health Concerns Assessment Noted Time PHQ-9 Depression Total Score: 0 09/22/19 23 9:47 AM EST documented as of this encounter Care Teams Business Info Consultant Relationship Specialty Start Date End Date Brittnee Hanna MD [address] [place], [place] [phone] PCP - General Family Medicine 08/17/18 Di Hyde, ShabbirD [address] [place] [phone] Pharmacist Internal Medicine 01/06/23 08/31/24 Martina Mancia, JONATHON [address] [place] [address] Optometry 07/26/24 Donna Sutton Digital EngineerStores Clerk 05/06/24 documented as of this encounter
--- OUTSIDE RECORDS SUMMARY | 2024-10-04 11:10 | XMS_ITS | Encounter Summary ---
Author Organization [employer] Address [address] [place] [address] Care Team Providers Care Non Cdl Driver Name Role Phone Brittnee Hanna MD Primary Care Provider [phone] Martina Mancia OD Unavailable [phone] Reason for Visit * Reason Onset Date Comments Referral 09/19/2024 Encounter Details Date Type Department Care Team ([facility] st Contact Info) Description 09/19/2024 Telephone [facility] MEDICINE [address] [place] [address] Brittnee Hanna MD [address] [place] [address] Referral Social History Tobacco Use Types Packs/Day Years [...] Encounter - Leilani Agarwal RN - 09/19/2024 2:20 PM EST TC placed to Donna with P who confirms that the pt is requesting a referral for physical therapy. Per the pt chart a referral for physical therapy was placed on 12/30/2023. The pt has an upcoming extended office visit on 09/21/2024 with PCP. Donna states that she will call the pt to inform of this appt with PCP. * Telephone Encounter - Rebecca Dyer - 09/19/2024 10:34 AM EST Tc from Donna [facility] tree care foreman informing pt is requesting a referral for physical therapy Any question please return call to Donna (tree care foreman) [phone] documented in this encounter Plan of Treatment Upcoming Encounters Date Type Department Care Team (Late st Contact Info) Description 11/07/2024 1:00 PM EDT Office Visit [facility] OPTOMETRY [address] [place] [address] GavinoMartina pineda, OD [address] [place] [address] documented as of this encounter Goals Goal Patient Goal Type Associated Problems Recent Progress Patient-Stated? Author Blood Pressure < 140/90 Blood Pressure 112/58(2024 3:02 PM EST) No Di Meyers, PharmD Hemoglobin A1c < 7 Result Component 11.9(07/27/20 2:31 PM EST) No Di Meyers PharmD documented as of this encounter Visit Diagnoses Not on filedocumented in this encounter Additional Health Concerns Assessment Noted Time PHQ-9 Depression Total Score: 15 024 10:35 AM EDT documented as of this encounter Care Teams Non Cdl Driver Relationship Specialty Start Date End Date Brittnee Hanna MD [address] [place] [address] PCP - General Family Medicine 08/17/18 Martina Mancia OD [address] [place] [address] Optometry 07/26/24 Donna Sutton Data Analytics SpecialistRecovery Agent 05/06/24 documented as of this encounter
--- OUTSIDE RECORDS SUMMARY | 2024-10-04 11:10 | XMS_ITS | Encounter Summary ---
Author Organization [employer] Address [address] [place] [address] Care Team Providers Care Gambling Broker Name Role Phone Brittnee Hanna MD Primary Care Provider [phone]- [phone] Tan Mancian OD Unavailable [phone] Encounter Details Date Type Department Care Team ([facility] [address] Contact Info) Description 09/19/2024 Orders Only GENERIC EXTERNAL DATA DEPARTMENT Provider, Generic External Data Social History Tobacco Use Types Packs/Day Years [...] as of this encounter Miscellaneous Notes * Result Encounter Note - Di Hyde PharmD - 09/19/2024 11:41 AM EST I will send a pended chlorthalidone prescription change to you so that this can be changed in her [facility]. Do you want to repeat the BMP after the dose change? documented in this encounter Plan of Treatment Upcoming Encounters Date Type Department Care Team (Late st Contact Info) Description 11/07/2024 1:00 PM EDT Office Visit [facility] [address] [place] [address] GavinoMartina, OD [address] [place] [address] documented as of this encounter Goals Goal Patient Goal Type Associated Problems Recent Progress Patient-Stated? Author Blood Pressure < 140/90 Blood Pressure 112/58(2024 3:02 PM EST) No Di Meyers PharmD Hemoglobin A1c < 7 Result Component 11.9(07/27/20 2:31 PM EST) No Di Meyers PharmD documented as of this encounter Procedures Procedure Name Priority Date/Time Associated Diagnosis Comments CBC WITH AUTO DIFFERENTIAL Routine 09/19/2024 10:00 AM EST TSH Routine 09/19/2024 10:00 AM EST GLUCOSE Routine 09/19/2024 10:00 AM EST HEPATIC FUNCTION PANEL Routine 10:00 AM EST HEPATIC FUNCTION PANEL Routine 10:00 AM EST LIPID PANEL, STANDARD Routine 09/19/2024 10:00 AM EST LIPID PANEL, STANDARD Routine 09/19/2024 10:00 AM EST COMPREHENSIVE METABOLIC PANEL Routine 09/19/2024 10:00 AM EST documented in this encounter Results * TSH (09/19/2024 10:00 AM EST) Thyroid Stimulating Hormone 0.76 0.32 - 4.0 uIU/mL [facility] Comment:TSH 3rd Generation ( [facility]) 09/19/2024 10:0 0 AM EST 09/19/2024 11:32 AM EST us Generic External Data Provider LAB BLOOD ORDERAB LES Final Result [facility] [address] [place] [address] [phone] * (ABNORMAL) Lipid Panel, Standard (09/19/2024 10:00 AM EST) Triglycerides 209(H) <150 mg/dL [facility] Comment:Desirable Triglyceri de: less than 150 mg/dLBorderline High Triglyceride 150-199 mg/dLHigh Triglyceride: 200-499 mg/dLVery High Triglyceride: greater than or equal to 5OO mg/dL Cholesterol 142 <200 mg/dL [facility] Comment:Desirable Cholestero l: less than 200 mg/dLBorderline High Cholesterol: 200-239 mg/dLHigh Cholesterol: greater than 239 mg/dL LDL Cholesterol Calculated 64 <100 mg/dL [facility] Comment:Desirable LDL: less than 100 mg/dLNear Optimal/Above Optimal LDL: 110- 129 mg/dLBorderline High LDL: 130-159 mg/dLHigh LDL: 160-189 mg/dLVery High LDL: greater than or equal to 190 mg/dL HDL Cholesterol 37(L) >40 mg/dL [facility] Comment:Desirable HDL: great er than 40 mg/dL Note: This HDL assay may give artificially low results in patients with liver disease. 09/19/2024 10:0 0 AM EST 09/19/2024 11:32 AM EST us Generic External Data Provider LAB BLOOD ORDERAB LES Final Result Performing Organization Address [facility] Co de Phone Number [facility] [address] [place] [phone] * (ABNORMAL) Glucose (09/19/2024 10:00 AM EST) Glucose Fasting 290(H) 60 - 99 mg/dL [facility] Comment:A fasting glucose of 126 mg/dl or greater on more than oneoccasion is considered diagnostic of diabetes. 09/19/2024 10:0 0 AM EST 09/19/2024 11:32 AM EST us Generic External Data Provider LAB BLOOD ORDERAB LES Final Result Performing Organization Address [facility] Phone Number [facility] [address] [place] [address] [phone] * Hepatic Function Panel (09/19/2024 10:00 AM EST) Bilirubin, Direct 0.1 0.0 - 0.5 mg/dL [facility] 09/19/2024 10:0 0 AM EST 09/19/2024 11:32 AM EST Generic External Data Provider LAB BLOOD ORDERAB LES Final Result Performing Organization Address [facility] Co de Phone Number [facility] [address] [place] [phone] * (ABNORMAL) Comprehensive Metabolic Panel (09/19/2024 10:00 AM EST) Sodium 134(L) 135 - 145 mmol/L [facility] Potassium 3.0(L) 3.3 - 5.1 mmol/L [facility] Chloride 99 96 - 108 mmol/L [facility] Carbon Dioxide 26 22 - 29 mmol/L [facility] Anion Gap 12 12 - 20 [facility] Urea Nitrogen (BUN) 18(H) 9 - 16 mg/dL [facility] Creatinine, Serum 1.23 0.5 - 1.4 mg/dL [facility] Estimated Glomerular Filt Rate 44 [facility] Comment:Chronic Kidney Disea se: Estimated GFR < 60 mL/min/[id number] Kidney Disease: Estimated GFR < 15 mL/min/1.73m2 Glucose 288(H) 60 - 115 mg/dL [facility] Calcium 8.9 8.4 - 10.2 mg/dL [facility] Bilirubin, Total 0.5 0.0 - 1.0 mg/dL [facility] Aspartate Amino Transferase 23 5 - 31 U/L [facility] Alanine Aminotransferase 27 0 - 31 U/L [facility] Total Protein 7.5 6.5 - 8.0 g/dL [facility] Albumin Level 4.1 3.5 - 5.0 g/dL [facility] Alkaline Phosphatase 108 39 - 117 U/L [facility] 09/19/2024 10:0 0 AM EST 09/19/2024 11:32 AM EST us Generic External Data Provider LAB BLOOD ORDERAB LES Final Result [facility] [address] [place] [phone] * (ABNORMAL) Lipid Panel, Standard (09/19/2024 10:00 AM EST) Triglycerides 206(H) <150 mg/dL [facility] Comment:Desirable Triglyceri de: less than 150 mg/dLBorderline High Triglyceride 150-199 mg/dLHigh Triglyceride: 200-499 mg/dLVery High Triglyceride: greater than or equal to 5OO mg/dL Cholesterol 141 <200 mg/dL [facility] Comment:Desirable Cholestero l: less than 200 mg/dLBorderline High Cholesterol: 200-239 mg/dLHigh Cholesterol: greater than 239 mg/dL LDL Cholesterol Calculated 65 <100 mg/dL [facility] Comment:Desirable LDL: less than 100 mg/dLNear Optimal/Above Optimal LDL: 110- 129 mg/dLBorderline High LDL: 130-159 mg/dLHigh LDL: 160-189 mg/dLVery High LDL: greater than or equal to 190 mg/dL HDL Cholesterol 35(L) >40 mg/dL [facility] Comment:Desirable HDL: great er than 40 mg/dL Note: This HDL assay may give artificially low results in patients with liver disease. 09/19/2024 10:0 0 AM EST 09/19/2024 11:32 AM EST Brittnee Hanna MD LAB BLOOD ORDERABLES Final Result [facility] [address] [place] [phone] * Hepatic Function Panel (09/19/2024 10:00 AM EST) Bilirubin, Total 0.5 0.0 - 1.0 mg/dL [facility] Bilirubin, Direct 0.2 0.0 - 0.5 mg/dL [facility] Aspartate Amino Transferase 23 5 - 31 U/L [facility] Alanine Aminotransferase 26 0 - 31 U/L [facility] Total Protein 7.4 6.5 - 8.0 g/dL [facility] Albumin Level 4.0 3.5 - 5.0 g/dL [facility] Alkaline Phosphatase 108 39 - 117 U/L [facility] 09/19/2024 10:0 0 AM EST 09/19/2024 11:32 AM EST Brittnee Hanna MD LAB BLOOD ORDERABLES Final Result [facility] [address] [place], [place] [phone] * (ABNORMAL) CBC auto differential (09/19/2024 10:00 AM EST) White Blood Count 7.1 4.8 - 10.8 X10*3/uL [facility] Red Blood Count 4.14(L) 4.20 - 5.50 X10*6/uL [facility] Hemoglobin 12.1 12.0 - 16.0 g/dl [facility] Hematocrit 35.6(L) 37.0 - 47.0 % [facility] Mean Corpuscular Volume 86.0 80.0 - 98.0 fL [facility] Mean Corpuscular Hemoglobin 29.2 27.0 - 33.0 pg [facility] Mean Corpuscular HGB Conc 34.0 31.0 - 35.0 g/dl [facility] Red Cell Distribution Width 11.5 11.0 - 16.0 % [facility] Platelet Count 436(H) 160 - 400 X10*3/uL [facility] Mean Platelet Volume 10.6 9.4 - 12.3 fL [facility] Neutrophils Percent Auto 69.4 45 - 73 % [facility] Imm Gran Pct Auto 0.3 0.0 - 0.4 % [facility] Lymphocytes Percent Auto 21.7 20 - 40 % [facility] Monocytes Percent Auto 6.3 2 - 11 % [facility] Eosinophils Percent Auto 2.0 0 - 4 % [facility] Basophils Percent Auto 0.3 0 - 2 % [facility] NRBC Pct Auto 0.0 0.0 - 0.2 /100WBC [facility] Neutrophils Absolute Auto 5.0 2.0 - 8.3 x10*3/uL [facility] Imm Gran Abs Auto 0.02 0.00 - 0.03 X10*3/uL [facility] Lymphocytes Absolute Auto 1.6 1.2 - 4.9 X10*3/uL [facility] Monocytes Absolute Auto 0.5 0.1 - 1.2 X10*3/uL [facility] Eosinophils Absolute Auto 0.1 0.0 - 0.4 X10*3/uL [facility] Basophils Absolute Auto 0.0 0.0 - 0.2 X10*3/uL [facility] NRBC Abs Auto 0.000 0.0 - 0.012 X10*3/uL [facility] 09/19/2024 10:0 0 AM EST 09/19/2024 11:32 AM EST us Generic External Data Provider LAB BLOOD ORDERAB LES Final Result Performing Organization Address City/State/[facility] Co de Phone Number [facility] [address] [place] [phone] documented in this encounter Visit Diagnoses Not on filedocumented in this encounter Additional Health Concerns Assessment Noted Time PHQ-9 Depression Total Score: 15 024 10:35 AM EDT documented as of this encounter Care Teams Gambling Broker Relationship Specialty Start Date End Date Brittnee Hanna MD [address] [place] [address] PCP - General Family Medicine 08/17/18 Martina Mancia OD [address] [place] [address] Optometry 07/26/24 Donna Sutton Wet Press TenderConstruction Craft Laborer 05/06/24 documented as of this encounter
--- OUTSIDE RECORDS SUMMARY | 2024-10-04 11:10 | XMS_ITS | Encounter Summary ---
Author Organization [employer] Address [address] [place] [address] Care Team Providers Care Pmo Analyst Name Role Phone Brittnee Hanna MD Primary Care Provider [phone]- [phone] Martina Mancia OD Unavailable [phone] Encounter Details Date Type Department Care Team ([facility] Contact Info) Description 09/20/2024 Telephone [facility] [address] [place], [place] [phone] Flory Kaufman RN Social History Tobacco Use Types Packs/Day Years [...] encounter Miscellaneous Notes * Telephone Encounter - Flory Kaufman RN - 09/20/2024 10:44 AM EST Tc to pt via bls id: [id number] to let them know per PCP Please let Cynthia know her potassium islow. I am sending potassium to take once a day for 5 days. Thank you. Pt verba;ized understanding and no further questions at this time. * Telephone Encounter - Flory Kaufman RN - 09/20/2024 10:44 AM EST ----- Message from Brittnee Hanna MD sent at 09/19/2024 1:55 PM EST ----- Please let Cynthia know her potassium is low. I am sending potassium to take once a day for 5 days. Thank you. documented in this encounter Plan of Treatment Upcoming Encounters Date Type Department Care Team (Late st Contact Info) Description 11/07/2024 1:00 PM EDT Office Visit [facility] [address] [place] [address] Martina Mancia, OD [address] [place] [address] documented as of this encounter Goals Goal [...] documented as of this encounter Care Teams Pmo Analyst Relationship Specialty Start Date End Date Brittnee Hanna MD [address] [place] [phone] PCP - General Family Medicine 08/17/18 Martina Mancia OD [address] [place] [phone] Optometry 07/26/24 Donna Sutton Charge Preparation TechnicianHerbicide Service Sales Representative 05/06/24 documented as of this encounter
--- OUTSIDE RECORDS SUMMARY | 2024-10-04 11:10 | XMS_ITS | Encounter Summary ---
Author Organization [employer] Address [address] [place] [address] Care Team Providers Care Animal Chiropractor Name Role Phone Brittnee Hanna MD Primary Care Provider [phone]- [phone] Martina Mancia OD Unavailable [phone] Encounter Details Date Type Department Care Team ([facility] st Contact Info) Description 09/19/[address] [facility] [address] [place] [address] Di Hyde, PharmD [address] [place] [address] Essential hypertension Social History Tobacco Use Types Packs/Day Years [...] encounter Miscellaneous Notes * Telephone Encounter - Di Hyde PharmD - 09/19/2024 8:34 PM EST Discussed with PCP to decrease patient's chlorthalidone from 25mg once daily to 12.5mg once daily due to hypokalemia. Updated prescription queued. documented in this encounter Plan of Treatment Upcoming Encounters Date Type Department Care Team (Late st Contact Info) Description 11/07/2024 1:00 PM EDT Office Visit [facility] [address] [place] [address] Gavino, Martina, OD [address] [place] [address] documented as of this encounter Goals Goal Patient Goal Type Associated Problems Recent Progress Patient-Stated? Author Blood Pressure < 140/90 Blood Pressure 112/58(2024 3:02 PM EST) No Di Meyers PharmD Hemoglobin A1c < 7 Result Component 11.9(07/27/20 2:31 PM EST) No Di Meyers PharmD documented as of this encounter Visit Diagnoses Diagnosis Essential hypertension Unspecified essential hypertension documented in this encounter Additional Health Concerns Assessment Noted Time PHQ-9 Depression Total Score: 15 08/22/2 024 10:35 AM EDT documented as of this encounter Care Teams Animal Chiropractor Relationship Specialty Start Date End Date Brittnee Hanna MD [address] [place], [place] [phone] PCP - General Family Medicine 08/17/18 Martina Mancia OD [address] [place] [phone] Optometry 07/26/24 Donna Sutton Registered Nurse NurseryBaker Operator Automatic 05/06/24 documented as of this encounter
--- OUTSIDE RECORDS SUMMARY | 2024-10-04 11:11 | XMS_ITS | Encounter Summary ---
Author Organization [employer] Address [address] [place] [address] Care Team Providers Care Inspector And Mender Name Role Phone Brittnee Hanna MD Primary Care Provider +- [phone] Di Hyde PharmD Unavailable [phone] Martina Mancia OD Unavailable [phone] Encounter Details Date Type Department Care Team ([facility] st Contact Info) Description 05/24/2024 Orders Only [facility] [address] [place] [address] Brittnee Hanna MD [address] [place] [address] Social History Tobacco Use Types Packs/Day Years [...] Description 11/07/2024 1:00 PM EDT Office Visit [facility] [address] [place] [address] Martina Mancia, OD [address] [place] [address] documented as of this encounter Goals Goal Patient Goal Type Associated Problems Recent Progress Patient-Stated? Author Blood Pressure < 140/90 Blood Pressure 112/58(2024 3:02 PM EST) No Bhupendras-Di Chapman, PharmD Hemoglobin A1c < 7 Result Component 11.9(07/27/20 24 2:31 PM EST) No Di Meyers, PharmD documented as of this encounter Visit Diagnoses Not on filedocumented in this encounter Additional Health Concerns Assessment Noted Time PHQ-9 Depression Total Score: 15 024 10:35 AM EDT documented as of this encounter Care Teams Inspector And Mender Relationship Specialty Start Date End Date Brittnee Hanna MD [address] [place] [address] PCP - General Family Medicine 08/17/18 Di Hyde, PharmD [address] [place] [address] Pharmacist Internal Medicine 01/06/23 08/31/24 Martina Mancia OD [address] [place] [address] Optometry 07/26/24 Donna Sutton Analysis Or Research Safety InspectorApplications Trainer 05/06/24 documented as of this encounter
--- OUTSIDE RECORDS SUMMARY | 2024-10-04 11:11 | XMS_ITS | Encounter Summary ---
Author Organization [employer] Address [address] [place] [address] Care Team Providers Care Cloth Roll Winder Name Role Phone Brittnee Hanna MD Primary Care Provider +- [phone] Di Hyde PharmD Unavailable [phone] Martina Mancia OD Unavailable [phone] Encounter Details Date Type Department Care Team ([facility] st Contact Info) Description 04/27/2024 Abstract [facility] [address] [place] [address] Brittnee Hanna MD [address] [place], [place] [phone] Social History Tobacco Use Types Packs/Day Years [...] Description 11/07/2024 1:00 PM EDT Office Visit [facility] OPTOMET[facility] [address] [place] [address] GavinoTann, OD [address] [place] [address] documented as of this encounter Goals Goal [...] documented as of this encounter Care Teams Cloth Roll Winder Relationship Specialty Start Date End Date Brittnee Hanna MD [address] [place] [address] PCP - General Family Medicine 08/17/18 Di Hyde, PharmD [address] [place] [address] Pharmacist Internal Medicine 01/06/23 08/31/24 Martina Mancia OD [address] [place] [address] Optometry 07/26/24 Donna Sutton Environmental Health OfficerEngineering Drafter 05/06/24 documented as of this encounter
--- OUTSIDE RECORDS SUMMARY | 2024-10-04 11:11 | XMS_ITS | Encounter Summary ---
Author Organization [employer] Address [address] [place] [address] Care Team Providers Care Personal Banking Officer Name Role Phone Brittnee Hanna MD Primary Care Provider [phone]- [phone] Martina Mancia OD Unavailable [phone] Reason for Visit * Reason Comments Med Refill Encounter Details Date Type Department Care Team ([facility] st Contact Info) Description 10/03/2024 Refill [facility] [address] [place], [place] [phone] Brittnee Hanna MD [address] [place] [address] Mild intermittent asthma without complication Social History [...] 11/07/2024 1:00 PM EDT Office Visit [facility] OPTOMETRY [address] [place] [address] Martina Mancia OD [address] [place] [address] documented as of this encounter Goals Goal [...] documented as of this encounter Care Teams Personal Banking Officer Relationship Specialty Start Date End Date Brittnee Hanna MD [address] [place] [address] PCP - General Family Medicine 08/17/18 Martina Mancia OD [address] [place] [address] Optometry 07/26/24 Donna Sutton Business Proposal RepReal Estate Agency Principal 05/06/24 documented as of this encounter
--- OUTSIDE RECORDS SUMMARY | 2024-10-04 11:11 | XMS_ITS | Encounter Summary ---
Author Organization [employer] [facility] Address [address] [place] [address] Care Team Providers Care Coach Mechanic Name Role Phone Brittnee Hanna MD Primary Care Provider +- [phone] Di Hyde PharmD Unavailable [phone] Maritna Mancia OD Unavailable Encounter Details Date Type Department Care Team ([facility] Contact Info) Description 09/22/2022 Abstract [facility] [address] [place] [address] Brittnee Hanna MD [address] [place] [address] Social History Tobacco Use Types Packs/Day Years [...] Upcoming Encounters Date Type Department Care Team ([facility] Contact Info) Description 11/07/2024 1:00 PM EDT Office Visit [facility] OPTOMETRY [address] [place], [place] [phone] Martina Mancia, OD [address] [place] [address] documented as of this encounter Procedures Procedure [...] mIU/L Blood Venous blood specimen / Unknown Result [facility] Provider MD LAB BLOOD ORDERABLES Emelia l Result * Basic Metabolic Panel (06/05/2022) Creatinine 1.0 0.5 - 1.1 mg/dL Blood Venous blood specimen / Unknown Result [facility] Provider MD LAB BLOOD ORDERABLES Emelia l Result * (ABNORMAL) Lipid Panel, Standard (06/05/2022) Triglycerides 163(A) 40 - 160 mg/dL Cholesterol 209(A) 0 - 200 mg/dL HDL Cholesterol 70 35 - 70 mg/dL LDL Cholesterol 111 mg/dL Blood Venous blood specimen / Unknown Result [facility] Provider MD LAB BLOOD ORDERABLES Emelia l Result * Pap Smear (05/16/2022 12:00 AM EDT) Swab [facility] Provider LAB CYTOLOGY ORDERABLES F inal Result [facility] * Colonoscopy (08/21/2020) Colonoscopy hyperplastic polyp Dr. Olivarez [facility] Provider HEALTH MAINTENANCE Final Result * HIV-1 antibody, EIA (04/25/2019) External HIV-1 Antibody Negative Blood Venous blood specimen / Unknown Result [facility] Provider LAB BLOOD ORDERABLES Emelia l Result * Mammography (06/14/2018) Mammogram normal Anatomical Region Laterality Modality Other [facility] Provider HEALTH MAINTENANCE Final Result * Hepatitis C Antibody with Reflex to HCV, RNA, Quantitative, Real-Time PCR (02/22/2014) Blood Venous blood specimen / Unknown 02/22/2014 Result [facility] Provider LAB BLOOD ORDERABLES Emelia l Result documented in this encounter Visit Diagnoses Not on filedocumented in this encounter Additional Health Concerns Assessment Noted Time PHQ-9 Depression Total Score: 0 09/22/19 23 9:47 AM EST documented as of this encounter Care Teams Coach Mechanic Relationship Specialty Start Date End Date Brittnee Hanna MD [address] [place] [address] PCP - General Family Medicine 08/17/18 Di Hyde PharmD [address] [place] [phone] Pharmacist Internal Medicine 01/06/23 08/31/24 Martina Mancia OD [address] [place] [address] [phone] Optometry 07/26/24 Donna Sutton Wire Spiral BinderPlastics Fabricator And Assembler 05/06/24 documented as of this encounter
--- OUTSIDE RECORDS SUMMARY | 2024-10-04 11:11 | XMS_ITS | Encounter Summary ---
Author Organization [employer] Address [address] [place] [address] Care Team Providers Care Nuclear Medicine Specialist Name Role Phone Brittnee Hanna MD Primary Care Provider [phone]- [phone] Tan Mancian OD Unavailable [phone] Encounter Details Date Type Department Care Team ([facility] Contact Info) Description 10/04/2024 Orders Only GENERIC EXTERNAL DATA DEPARTMENT Provider, [...] 11/07/2024 1:00 PM EDT Office Visit [facility] OPTOMETRY [address] [place] [address] GavinoMartina, OD [address] [place] [address] documented as of this encounter Goals Goal Patient Goal Type Associated Problems Recent Progress Patient-Stated? Author Blood Pressure < 140/90 Blood Pressure 112/58(2024 3:02 PM EST) No Bhupendras-Di Chapman, PharmD Hemoglobin A1c < 7 Result Component 11.9(07/27/20 2:31 PM EST) No Bhupendras-Di Chapman, PharmD documented as of this encounter Procedures Procedure Name Priority Date/Time Associated Diagnosis Comments GLUCOSE, WHOLE BLOOD Routine 10/04/2024 10:33 AM EST documented in this encounter Results * (ABNORMAL) Glucose, Whole Blood (10/04/2024 10:33 AM EST) Glucose, Whole Blood 353(HH) 60 - 115 mg/dL [facility] Comment:METER #: [id number] Testing performed in the Endocrinology Department [address] , [address], [facility]. 10/04/2024 10:3 3 AM EST 10/04/2024 10:39 AM EST us Generic External Data Provider LAB BLOOD ORDERAB LES Final Result [facility] [address] [place] [phone] [phone] documented in this encounter Visit Diagnoses Not on filedocumented in this encounter Additional Health Concerns Assessment Noted Time PHQ-9 Depression Total Score: 15 024 10:35 AM EDT documented as of this encounter Care Teams Nuclear Medicine Specialist Relationship Specialty Start Date End Date Brittnee Hanna MD [address] [place] [address] PCP - General Family Medicine 08/17/18 Martina Mancia OD [address] [place] [address] Optometry 07/26/24 Donna Sutton Cabinetmaker HelperUltrasound Technol 05/06/24 documented as of this encounter
--- OUTSIDE RECORDS SUMMARY | 2024-10-04 11:11 | XMS_ITS | Encounter Summary ---
Author Organization [employer] Address [address] [place] [address] Care Team Providers Care Rotary Cutter Feeder Name Role Phone Brittnee Hanna MD Primary Care Provider + [phone] Di Hyde PharmD Unavailable Martina Mancia OD Unavailable Encounter Details Date Type Department Care Team (Late Contact Info) Description 08/25/2022 Orders Only [facility] CHC MED & PEDS [address] [place], [place] [phone] Jeana Vital LPN Social History Tobacco Use [...] Encounters Date Type Department Care Team ([facility] Contact Info) Description 11/07/2024 1:00 PM EDT Office Visit [facility] OPTOMETRY [address] [place] [address] Martina Mancia, OD [address] [place], [place] [phone] documented as of this encounter Procedures Procedure Name Priority Date/Time Associated Diagnosis Comments HEPATIC FUNCTION PANEL Routine 07/21/2023 12:47 PM EST documented in this encounter Results * (ABNORMAL) Hepatic Function Panel (07/21/2023 12:47 PM EST) Bilirubin, Total 0.3 0.0 - 1.0 mg/dL [facility] Bilirubin, Direct 0.1 0.0 - 0.5 mg/dL [facility] Aspartate Amino Transferase 18 5 - 31 U/L [facility] Alanine Aminotransferase 33(H) 0 - 31 U/L [facility] Total Protein 7.4 6.5 - 8.0 g/dL [facility] Albumin Level 4.3 3.5 - 5.0 g/dL [facility] Alkaline Phosphatase 142(H) 39 - 117 U/L [facility] 07/21/2023 12:4 7 PM EST 07/21/2023 3:59 PM EST us Brittnee Hanna MD LAB BLOOD ORDERABLES Final Result Performing Organization Address City/State/[facility] Co de Phone Number [facility] [address] [place] [phone] documented in this encounter Visit Diagnoses Not on filedocumented in this encounter Care Teams Rotary Cutter Feeder Relationship Specialty Start Date End Date Brittnee Hanna MD [address] [place] [address] PCP - General Family Medicine 08/17/18 Di Hyde PharmD [address] [place] [phone] Pharmacist Internal Medicine 01/06/23 08/31/24 Martina Mancia OD [address] [place] [address] Optometry 07/26/24 Donna Sutton Hot Tar RooferEmergency Nurse 05/06/24 documented as of this encounter
--- OUTSIDE RECORDS SUMMARY | 2024-10-04 11:11 | XMS_ITS | Encounter Summary ---
Author Organization [employer] Address [address] [place] [address] Care Team Providers Care Cook Chief Name Role Phone Brittnee Hanna MD Primary Care Provider [phone]- [phone] Di Hyde PharmD Unavailable [phone] Martina Mancia OD Unavailable [phone] Reason for Visit * Reason Onset Date Comments Appointment Request 07/18/2024 Encounter Details Date Type Department Care Team ([facility] st Contact Info) Description 07/18/2024 Telephone [facility] MEDICINE [address] [place] [address] Brittnee Hanna MD [address] [place], [place] [phone] Appointment Request Social History Tobacco Use Types [...] 11/07/2024 1:00 PM EDT Office Visit [facility] OPTOMETRY [address] [place] [address] Gavino, Martina, OD [address] [place] [address] documented as of this encounter Goals Goal [...] documented as of this encounter Care Teams Cook Chief Relationship Specialty Start Date End Date Brittnee Hanna MD [address] [place] [address] PCP - General Family Medicine 08/17/18 Di Hyde PharmD [address] [place] [address] Pharmacist Internal Medicine 01/06/23 08/31/24 Martina Mancia OD [address] [place] [address] Optometry 07/26/24 Donna Sutton Charting ClerkInstrument Man 05/06/24 documented as of this encounter
--- OUTSIDE RECORDS SUMMARY | 2024-10-04 11:11 | XMS_ITS | Encounter Summary ---
Author Organization [employer] [facility] Address [address] [place] [address] Care Team Providers Care Counselor Marriage And Family Name Role Phone Brittnee Hanna MD Primary Care Provider [phone]- [phone] Martina Mancia OD Unavailable [phone] Reason for Referral * Consultation (Routine) - Authorized Specialty Diagnoses / Procedures Referred By Hu melo Referred To Contact Gastroenterology Diagnoses Unintentional weight loss Brittnee Hanna MD [address] [place] [address] Phone: tel: fax: [facility] Referral ID Status Reason Start Date Expiration Date Visits Requested Visits Authorized [id number] Authorized Specialty Services Required 09/07/2024 09/07/2025 1 1 * Consultation (Routine) - Authorized Specialty Diagnoses / Procedures Referred By Hu melo Referred To Contact Endocrinology Diagnoses Type 2 diabetes mellitus with hyperglycemia, with long-term current use of insulin ([facility]) Brittnee Hanna MD [address] [place] [address] Phone: tel: fax: [facility] Referral ID Status Reason Start Date Expiration Date Visits Requested Visits Authorized [id number] Authorized Specialty Services Required 09/08/2024 09/08/2025 6 6 Encounter Details Date Type Department Care Team (Late st Contact Info) Description 09/07/2024 Orders Only [facility] MED[facility]INE [address] [place] [address] [place] [address] Brittnee Hanna MD [address] [place] [address] Type 2 diabetes mellitus with hyperglycemia, with long-term current use of insulin ([facility]) (Primary Dx); Unintentional weight loss Social History [...] Description 11/07/2024 1:00 PM EDT Office Visit [facility] OPTOMETRY [address] [place] [address] Martina Mancia, OD [address] [place] [address] Scheduled Referrals Name Type Priority Associated Diagnoses Order Schedule Referral to Endocrinology Outpatient Referral Routine Type 2 diabetes mellitus with hyperglycemia, with long-term current use of insulin ([facility]) Expected: 09/07/2024 (Approximate), Expires: 09/07/2025 Referral to Gastroenterology Outpatient Referral Routine Unintentional weight loss Expected: 09/07/2024 (Approximate), Expires: 09/07/2025 documented as of this encounter Goals Goal Patient Goal Type Associated Problems Recent Progress Patient-Stated? Author Blood Pressure < 140/90 Blood Pressure 112/58(2024 3:02 PM EST) No Di Meyers, PharmD Hemoglobin A1c < 7 Result Component 11.9(07/27/20 2:31 PM EST) No Di Meyers, PharmD documented as of this encounter Visit Diagnoses Diagnosis Type 2 diabetes mellitus with hyperglycemia, with long-term current use of insulin ([facility])- Primary Unintentional weight loss Loss of weight documented in this encounter Additional Health Concerns Assessment Noted Time PHQ-9 Depression Total Score: 15 024 10:35 AM EDT documented as of this encounter Care Teams Counselor Marriage And Family Relationship Specialty Start Date End Date Brittnee Hanna MD [address] [place] [address] PCP - General Family Medicine 08/17/18 Martina Mancia, OD [address] [place] [address] Optometry 07/26/24 Donna Sutton Web Page DeveloperCamp Assistant 05/06/24 documented as of this encounter
--- OUTSIDE RECORDS SUMMARY | 2024-10-04 11:11 | XMS_ITS | Encounter Summary ---
Author Organization [employer] Address [address] [place] [address] Care Team Providers Care Legislative Aide Name Role Phone Brittnee Hanna MD Primary Care Provider [phone] Di Hyde PharmD Unavailable Martina Mancia OD Unavailable Reason for Visit * Reason Comments Med Refill Encounter Details Date Type Department Care Team ([facility] Contact Info) Description 05/12/2023 Refill [facility] CHC MED & PEDS [address] [place] [address] Cipriano Campa MD [address] [place] [address] Type 2 diabetes mellitus with other circulatory complication, with long-term current use of insulin ([facility]) Social History Tobacco Use Types Packs/Day Years [...] Upcoming Encounters Date Type Department Care Team ([facility] Contact Info) Description 11/07/2024 1:00 PM EDT Office Visit [facility] OPTOMETRY [address] [place] [address] Martina Mancia, OD [address] [place] [address] documented as of this encounter Goals Goal Patient Goal Type Associated Problems Recent Progress Patient-Stated? Author Hemoglobin A1c < 7 Result Component 11.9( 4 2:31 PM EST) No Di Hyde, PharmD documented as of this encounter Visit Diagnoses Diagnosis Type 2 diabetes mellitus with other circulatory complication, with long-term current use of insulin ([facility]) documented in this encounter Additional Health Concerns Assessment Noted Time PHQ-9 Depression Total Score: 21 023 9:47 AM EDT documented as of this encounter Care Teams Legislative Aide Relationship Specialty Start Date End Date Brittnee Hanna MD [address] [place] [address] PCP - General Family Medicine 08/17/18 Di Hyde, PharmD [address] [place] [address] Pharmacist Internal Medicine 01/06/23 08/31/24 Martina Mancia, JONATHON [address] [place] [phone] Optometry 07/26/24 Donna Sutton Certified Tumor RegistrarSplicing Technician 05/06/24 documented as of this encounter
--- OUTSIDE RECORDS SUMMARY | 2024-10-04 11:11 | XMS_ITS | Encounter Summary ---
Author Organization [employer] Address [address] [place] [address] Care Team Providers Care Rail Signal Worker Name Role Phone Brittnee Hanna MD Primary Care Provider [phone] Di Hyde PharmD Unavailable Martina Mancia OD Unavailable [phone] Reason for Visit * Reason Comments Med Refill Encounter Details Date Type Department Care Team (Late st Contact Info) Description 07/21/2023 Refill [facility] CHC MED & PEDS [address] [place], [place] [phone] Brittnee Hanna MD [address] [place], [place] [phone] Mild intermittent asthma without complication Social History [...] Description 11/07/2024 1:00 PM EDT Office Visit [facility] OPTOMETRY [address] [place] [phone] aMrtina Mancia OD [address] [place] [address] documented as of this encounter Goals Goal Patient Goal Type Associated Problems Recent Progress Patient-Stated? Author Hemoglobin A1c < 7 Result Component 11.9( 4 2:31 PM EST) No Di Hyde PharmD documented as of this encounter Visit Diagnoses Diagnosis Mild intermittent asthma without complication documented in this encounter Additional Health Concerns Assessment Noted Time PHQ-9 Depression Total Score: 21 023 9:47 AM EDT documented as of this encounter Care Teams Rail Signal Worker Relationship Specialty Start Date End Date Brittnee Hanna MD [address] [place] [address] PCP - General Family Medicine 08/17/18 Di Hyde, ShabbirD [address] [place] [address] Pharmacist Internal Medicine 01/06/23 08/31/24 Martina Mancia OD [address] [place] [address] Optometry 07/26/24 Donna Sutton Registration ManagerPhp Mysql Web Developer 05/06/24 documented as of this encounter
--- OUTSIDE RECORDS SUMMARY | 2024-10-04 11:11 | XMS_ITS | Clinical Summary ---
Author Organization [employer] Address [address] [place] [address] Care Team Providers Care Product Mgr Name Role Phone Brittnee Hanna MD Primary Care Provider [phone] Tan Mancian OD Unavailable [phone] Allergies Active Allergy Reactions Criticality Noted Date Comments Penicillin V 08/13/2010 Other reaction(s): unspecified Penicillins Hives 03/17/2022 Shellfish-Derived Products Swelling High 0 Other reaction(s): unspecified Medications * This document contains information received from the source organization and may not represent a complete record from that organization. Continuous Blood Gluc Collar Setter (FreeStyle Ric 2 Fork) device Use as directed 1 each 023 Active insulin lispro (HumaLOG) 100 UNIT/ML injectionIndica tions:Type 2 diabetes mellitus with other circulatory complication, with long-term current use of insulin ([facility]) INJECT SUBCUTANEOUSLY DIRECTED PER SLIDING SCALE: BLOOD SUGAR <150 = 0U, 151-200 = 2U, 201-250 = 4U, 251-300 = 6U, 301-350 = 8U, >350 = 10U AND CALL DOCTOR 15 mL 11 024 Active Continuous Glucose Sensor (FreeStyle Ric 2 Sensor) miscIndications :Type 2 diabetes mellitus with hyperglycemia, with long-term current use of insulin ([facility]/HCC) USE DIRECTED TO TEST BLOOD SUGAR CHANGE EVERY 14 DAYS 2 each 024 Active amLODIPine (Norvasc) 5 MG tabletIndicatio ns:Essential hypertension Take 1 tablet (5 mg) by mouth Once per day. 30 tablet 024 2024 Active atorvastatin (Lipitor) 80 MG tabletIndicatio ns:Type 2 diabetes mellitus with hyperglycemia, with long-term current use of insulin ([facility]),Dysli pidemia Take 1 tablet (80 mg) by mouth at bedtime. 90 tablet Active tiotropium (Spiriva HandiHaler) 18 MCG inhalation capsuleIndicati ons:Chronic obstructive pulmonary disease, unspecified COPD type ([facility]),Mild intermittent asthma without complication Place 1 capsule (18 mcg) into inhaler and inhale in the morning. 30 capsule Active lisinopril 20 MG tabletIndicatio ns:Essential hypertension Take 1 tablet (20 mg) by mouth in the morning. 90 tablet Active isosorbide mononitrate ER (Imdur) 30 MG 24 hr tabletIndicatio ns:Essential hypertension TAKE 1 TABLET BY MOUTH EVERY MORNING 90 tablet Active TRUEplus Lancets 33G miscIndications :Type 2 diabetes mellitus with hyperglycemia, with long-term current use of insulin ([facility]) TEST BLOOD SUGAR FIVE TIMES DAILY 200 each Active Blood Glucose Monitoring Suppl (FreeStyle [place] Lite) w/Device kitIndications: Type 2 diabetes mellitus with hyperglycemia, with long-term current use of insulin ([facility]) TEST BLOOD SUGAR FIVE TIMES DAILY DIRECTED 1 kit Active OLANZapine (ZyPREXA) 7.5 MG tabletIndicatio ns:Recurrent major depressive disorder, in remission ([facility]) TAKE 1 TABLET BY MOUTH AT BEDTIME [...] hyperglycemia, with long-term current use of insulin ([facility]) USE BEFORE TEST BLOOD SUGAR AND INSULIN 100 each 024 Active glucose 4 g chewable tabletIndicatio ns:Type 2 diabetes mellitus with hyperglycemia, with long-term current use of insulin ([facility]) Chew 4 tablets (16 g) if needed for low blood sugar. 50 tablet 024 Active glucagon (Baqsimi Two Pack) 3 MG/DOSE nasal powderIndicatio ns:Type 2 diabetes mellitus with hyperglycemia, with long-term current use of insulin ([facility]) For low blood sugar emergencies, insert 3mg into one nostril, may repeat the dose if no response after 15 minutes. 1 each Active gabapentin (Neurontin) 100 MG capsuleIndicati ons:Neuropathy Take 1 capsule (100 mg) by mouth 2 times daily. 180 capsule 3 024 2024 Active loratadine (Claritin) 10 MG tabletIndicatio ns:Allergic rhinitis, unspecified seasonality, unspecified trigger TAKE 1 TABLET BY MOUTH EVERY MORNING FOR ALLERGIES 90 tablet 3 024 Active albuterol (Ventolin HFA) 108 (90 Base) MCG/ACT inhalerIndicati ons:Mild intermittent asthma without complication INHALE 2 PUFFS BY MOUTH EVERY 4 HOURS NEEDED FOR WHEEZING OR SHORTNESS OF BREATH 18 g 1 Active insulin glargine (Lantus SoloStar) 100 UNIT/ML penIndications: Type 2 diabetes mellitus with other circulatory complication, with long-term current use of insulin ([facility]) INJECT 40 UNITS SUBCUTANEOUSLY AT BEDTIME Active glucose blood (FreeStyle Precision Freeman Test) test stripIndication s:Type 2 diabetes mellitus with hyperglycemia, with long-term current use of insulin ([facility]) TEST BLOOD SUGAR UP TO FOUR TIMES DAILY NEEDED 100 strip 025 Active Ferrous Sulfate (iron) 325 (65 Fe) MG tabletIndicatio ns:Anemia, unspecified type TAKE 1 TABLET BY MOUTH EVERY OTHER DAY IN THE MORNING 45 tablet 11 025 Active Icosapent Ethyl (Vascepa) 1 g capsuleIndicati ons:Dyslipidemi a TAKE 2 CAPSULES BY MOUTH TWICE DAILY IN THE MORNING AND EVENING 360 capsule 025 Active acetone, urine, test stripIndication s:Type [...] Use as instructed 100 each 025 Active chlorthalidone (Hygroton) 25 MG tabletIndicatio ns:Essential hypertension TAKE ONE HALF TABLET BY MOUTH ONCE DAILY 45 tablet 1 025 Active Pentips 32G X 4 MM misc USE FOUR TIMES DAILY 100 each 11 024 2024 Discontinued(R eorder (will not trigger notification to Pharmacy)) chlorthalidone (Hygroton) 25 MG tabletIndicatio ns:Essential hypertension Take 1 tab po jin 90 tablet 3 024 2024 Discontinued(R eorder (will not trigger notification to Pharmacy)) potassium chloride CR (Klor-Con M20) 20 MEQ ER tabletIndicatio ns:Hypokalemia Take 1 tablet (20 mEq) by mouth Once per day for 5 days. Do not crush or chew. 5 tablet 025 2024 Active Problems Patient Care Coordination No te Formatting of this note migh t be different from the original. Enrolled in [facility] DM clinic with Shabbir McmillanD, [facility] Problem Noted Date Diagnosed Date Unintentional weight [...] for OP and psychiatry services in the [place] area. clinician provided contact information for [facility] in [place]. Dizziness 12/30/2023 Overview (12/31/2023): Pt continues to [...] as pharmacomtherapy, [facility] smoking cessation group, and [facility] pharmacy smoking cessation clinic Discussed USPSTF [...] as pharmacomtherapy, [facility] smoking [facility] group, and [facility] pharmacy smoking cessation clinic Discussed USPSTF [...] as pharmacomtherapy, [facility] smoking cessation group, and [facility] pharmacy smoking cessation clinic Discussed USPSTF [...] due after 07/27/25 -eye care facilitated by [facility] on 05/20/2023 -dental home is [facility], [facility] -health care proxy filed 04/07/24 Assessment & Plan (07/27/2024 2:57 PM EST): -next physical exam due after 07/27/25 -eye care facilitated by [facility] on 05/20/2023 -dental home is [facility], [facility] -health care proxy filed 04/07/24 Assessment & Plan (04/07/2024 10:24 AM EDT): -next physical exam due after 06/10/2024 -eye care facilitated by [facility] on 05/20/2023 -dental home is [facility], [facility] -health care proxy filed 04/07/24 Assessment & Plan (06/10/2023 2:19 PM EDT): -next physical exam due after 06/10/2024 -eye care facilitated by [facility] on 05/20/2023 -dental home is Anemia 04/01/2022 [...] -poor EF and DM) Dyslipidemia 04/01/2022 Overview (09/21/2024): Lab Results Component Value Date CHOL 141 09/19/2024 CHOL 142 09/19/2024 CHOL 206 (H) 04/05/2024 TRIG 206 (H) 09/19/2024 TRIG 209 (H) 09/19/2024 TRIG 320 (H) 04/05/2024 HDL 35 (L) 09/19/2024 HDL 37 (L) 09/19/2024 HDL 57 04/05/2024 LDLCHOLCAL 65 09/19/2024 LDLCHOLCAL 64 09/19/2024 LDLCHOLCAL 85 04/05/2024 LDL 111 06/05/2022 -continue lifestyle modification -continue [...] controlled -does not take meds before visits -[facility] referral Disorder of cardiovascular system 05/03/2014 Overview [...] strict ED precautions. -Referral to re-establish with [facility] placed Assessment & Plan (09/22/2022 9:32 [...] for OP and psychiatry services in the [place] area. clinician provided contact information for [facility] and [facility] in [place]. Assessment & Plan (01/08/2023 10:29 AM EDT): [...] services. ?? PLAN: 1. Follow up with [facility]: Not recommended for follow-up 2. Patient goal is to engage in behavioral health services. 3. Behavioral Recommendations a. Practice using a different coping skill on a daily basis b. Once services are established, attend therapy and medication management appointments c. Patient will reach out to a [facility] during next PCP appointment if needed Assessment & Plan (07/22/2022 2:55 PM EST): Most likely exacerbated by lack of meds >1m. Called pharmacy and verify med dose, sent Rx for Olanzapine 7.5mg I will email [facility] to make an appt with [...] glucose monitor. Needs sensors. 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 Lab Results [...] Diabetes is controlled. -Pt is followed by [facility] Lab Results Component Value Date HGBA1C 9.4 [...] is not controlled. -Pt is followed by [facility]. Lab Results Component Value Date HGBA1C 11.5 [...] admitted on 03/17/2022 for DKA (diabetic ketoacidosis) ([facility]) [E11.10];Acute cystitis without hematuria [N30.00] Results: Results [...] admitted on 03/17/2022 for DKA (diabetic ketoacidosis) ([facility]/HCC) [E11.10];Acute cystitis without hematuria [N30.00] Results: Results [...] Encounters Date Type Department Care Team Description 10/04/2024 Orders Only GENERIC EXTERNAL DATA DEPARTMENT Provider, Generic External Data 10/03/2024 Refill [facility] [address] [place] [phone] Brittnee Hanna MD Mild intermittent asthma without complication 09/21/2024 Telephone [facility] [address] [place] [phone] Brittnee Hanna MD 09/20/2024 Telephone [facility] [address] [place] [address] Flory Kaufman, RN 09/19/2024 Refill [facility] [address] [place] [address] Di Hyde, Bo Essential hypertension 09/19/2024 Telephone [facility] [address] [place] [phone] Leilani Agarwal, RN Results 09/19/2024 Orders Only [facility] [address] [place] [address] Brittnee Hanna MD Hypokalemia (Primary Dx) 09/19/2024 Orders Only GENERIC EXTERNAL DATA DEPARTMENT Provider, Generic External Data 09/19/2024 Telephone [facility] [address] [place] [phone] Brittnee Hanna MD Referral 09/12/2024 Refill [facility] [address] [place], [place] [phone] Brittnee Hanna MD 09/07/2024 Orders Only [facility] [place] [address] Brittnee Hanna MD Type 2 diabetes mellitus with hyperglycemia, with long-term current use of insulin (CMS/HCC) (Primary Dx); Unintentional weight loss 09/07/2024 Telephone [facility] [place] [address] Di Hyde, Bo Appointment Request 08/31/2024 Travel 08/25/2024 Refill [facility] [place] [address] Brittnee Hanna MD Type 2 diabetes mellitus with hyperglycemia, with long-term current use of insulin (CMS/HCC); Anemia, unspecified type; Dyslipidemia 08/10/2024 Telephone [facility] [place] [address] Brittnee Hanna MD Appointment scheduling 08/05/2024 Travel 07/28/2024 Refill [facility] [place] [address] Jaquelin Chung MD Mild intermittent asthma without complication 07/28/2024 Refill [facility] [place] [address] Brittnee Hanna MD Allergic rhinitis, unspecified seasonality, unspecified trigger; Mild intermittent asthma without complication 07/27/2024 2:15 PM EST Office Visit [facility] [place] [address] Brittnee Hanna MD Type 2 diabetes mellitus with hyperglycemia, with long-term current use of insulin (CMS/HCC) (Primary Dx); Unintentional weight loss; Dyslipidemia; Neuropathy; Encounter for immunization; Coronary artery stenosis; Tobacco abuse; Other specified health status 07/27/2024 Travel 07/18/2024 Patient Outreach [facility] [place] [address] Brittnee Hanna MD Pre-visit Planning (SDOH screening was completed on 12/30/2023) 07/18/2024 Telephone [facility] [place] [address] Brittnee Hanna MD Appointment Request from Last 3 Months Immunizations Name Administration [...] your housing situation today? I have francisco karen 12/30/[address] you li [...] Description 11/07/2024 1:00 PM EDT Office Visit [facility] [address] [place] [address] Martina Mancia, OD [address] [place] [address] Health Maintenance Due Date Last Done Comments CT Colonography 1963 FIT DNA/Cologuard 1963 FIT 1963 FOBT 1963 Sigmoidoscopy 1963 Zoster Vaccines (1 of 2) 2013 RSV Patients and Patients Aged 60 years or older (1 - Risk 60-74 years 1-dose series) 2023 Depression Monitoring (PHQ-9) 10/08/2024 04/07/2024, 04/07/2024 Diabetes: Hemoglobin A1C 10/25/2024 024, 04/07/2024, 12/30/2023, Additional history exists SDOH Screening 12/29/2024 12/30/2023 Depression Screening 04/07/2025 04/07/2024, 04/07/20 24 Eye Exam 05/20/2025 05/20/2023, 11/2022, 05/20/2023, Additional history exists Mammogram 07/24/2025 07/24/2023, 05/18, 06/14/2018 Alcohol/Substance Use Screening 07/27/2025 07/27/2024 COVID-19 Vaccine ( season) 2025 09/04/2022, 05/16/2022, 05/08/2021 Postponed from 04/17/2024 (Patient Refused) Diabetes: Foot Exam 07/27/2025 07/27/2024, 07/27/2024, 07/27/2024, Additional history exists Tobacco Screening 07/27/2025 07/27/2024 Diabetes: Urine Protein Screening 09/19/2025 09/19/2024, 07/21/2023, 06/05/2022, Additional history exists Lipid Panel 09/19/2025 09/19/2024, 10/2024, 04/05/2024, Additional history exists Cervical Cancer Screening 05/16/2027 HPV/Cotest 05/16/2027 05/16/2022 [...] WHOLE BLOOD Routine 10/04/2024 10:33 AM EST TSH Routine 09/19/2024 10:00 AM EST LIPID PANEL, STANDARD Routine 09/19/2024 10:00 AM EST GLUCOSE Routine 09/19/2024 10:00 AM EST HEPATIC FUNCTION PANEL Routine 10:00 AM EST COMPREHENSIVE METABOLIC PANEL Routine 09/19/2024 10:00 AM EST LIPID PANEL, STANDARD Routine 09/19/2024 10:00 AM EST HEPATIC FUNCTION PANEL Routine 10:00 AM EST CBC WITH AUTO DIFFERENTIAL Routine 09/19/2024 10:00 AM EST ALBUMIN, RANDOM URINE W/CREATININE Routine 09/19/2024 10:00 AM EST Type 2 diabetes mellitus with hyperglycemia, with long-term current use of insulin (CMS/HCC) POCT GLYCATED HEMOGLOBIN, TOTAL Routine 07/27/2024 2:31 PM EST Type 2 diabetes mellitus with hyperglycemia, with long-term current use of insulin (CMS/HCC) POCT GLUCOSE Routine 07/27/2024 2:29 PM EST Type 2 diabetes mellitus with hyperglycemia, with long-term current use of insulin (CMS/HCC) BI MAMMOGRAM SCREENING TOMOSYNTHESIS BILATERAL Routine 07/24/2023 3:39 PM EST THINPREP IMAGING PAP AND HPV MRNA E6/E7, WITH CT/NG, TRICHOMONAS Routine 05/16/2022 9:44 AM EDT PAP SMEAR Routine 05/16/2022 12:00 AM EDT HM COLONOSCOPY Routine 08/21/2020 HIV-1 ANTIBODY, EIA Routine 04/25/2019 HEPATITIS C AB W/REFL TO HCV RNA, QN, PCR Routine 02/22/2014 from Last 3 Months or Most Recently Relevant to Health Maintenance Results * (ABNORMAL) Glucose, Whole Blood (10/04/2024 10:33 AM EST) Glucose, Whole Blood 353(HH) 60 - 115 mg/dL [facility] Comment:METER #: [id number] Testing performed in the Endocrinology Department [address] , [address], [facility]. 10/04/2024 10:3 3 AM EST 10/04/2024 10:39 AM EST us Generic External Data Provider LAB BLOOD ORDERAB LES Final Result Performing Organization Address [facility]/ZIP Co de Phone Number [facility] [address] [place] [phone] * Albumin, Random Urine W/Creatinine (09/19/2024 10:00 AM EST) Creatinine, Urine 161.00 mg/dL [facility] Microalbumin Urine 17.0 mg/L [facility] Microalbum Creatinine Ratio Ur 10.5 <30 ug/mg cr [facility] Comment:Albumin/Creatinine R atio Reference Ranges: Normal: < 30 ug/mg creatinine Microalbuminuria: 30 - 300 ug/mg creatinineClinical Albuminuria: > 300 ug/mg creatinine Urine 09/19/2024 10:0 0 AM EST 09/19/2024 11:51 AM EST us Brittnee Hanna MD LAB URINE ORDERABLES Final Result Performing Organization Address [facility] Co de Phone Number [facility] [address] [place] [phone] * (ABNORMAL) CBC auto differential (09/19/2024 10:00 AM EST) White Blood Count 7.1 4.8 - 10.8 X10*3/uL [facility] Red Blood Count 4.14(L) 4.20 - 5.50 X10*6/uL [facility] Hemoglobin 12.1 12.0 - 16.0 g/dl [facility] Hematocrit 35.6(L) 37.0 - 47.0 % [facility] Mean Corpuscular Volume 86.0 80.0 - 98.0 fL [facility] Mean Corpuscular Hemoglobin 29.2 27.0 - 33.0 pg [facility] Mean Corpuscular HGB Conc 34.0 31.0 - 35.0 g/dl [facility] Red Cell Distribution Width 11.5 11.0 - 16.0 % [facility] Platelet Count 436(H) 160 - 400 X10*3/uL [facility] Mean Platelet Volume 10.6 9.4 - 12.3 fL [facility] Neutrophils Percent Auto 69.4 45 - 73 % [facility] Imm Gran Pct Auto 0.3 0.0 - 0.4 % [facility] Lymphocytes Percent Auto 21.7 20 - 40 % [facility] Monocytes Percent Auto 6.3 2 - 11 % [facility] Eosinophils Percent Auto 2.0 0 - 4 % [facility] Basophils Percent Auto 0.3 0 - 2 % [facility] NRBC Pct Auto 0.0 0.0 - 0.2 /100WBC [facility] Neutrophils Absolute Auto 5.0 2.0 - 8.3 x10*3/uL [facility] Imm Gran Abs Auto 0.02 0.00 - 0.03 X10*3/uL [facility] Lymphocytes Absolute Auto 1.6 1.2 - 4.9 X10*3/uL [facility] Monocytes Absolute Auto 0.5 0.1 - 1.2 X10*3/uL [facility] Eosinophils Absolute Auto 0.1 0.0 - 0.4 X10*3/uL [facility] Basophils Absolute Auto 0.0 0.0 - 0.2 X10*3/uL [facility] NRBC Abs Auto 0.000 0.0 - 0.012 X10*3/uL [facility] 09/19/2024 10:0 0 AM EST 09/19/2024 11:32 AM EST us Generic External Data Provider LAB BLOOD ORDERAB LES Final Result [facility] [address] [place] [phone] * TSH (09/19/2024 10:00 AM EST) Thyroid Stimulating Hormone 0.76 0.32 - 4.0 uIU/mL [facility] Comment:TSH 3rd Generation ( [facility]) 09/19/2024 10:0 0 AM EST 09/19/2024 11:32 AM EST Generic External Data Provider LAB BLOOD ORDERAB LES Final Result Performing Organization Address [facility] Co de Phone Number [facility] [address] [place] [phone] * (ABNORMAL) Glucose (09/19/2024 10:00 AM EST) Glucose Fasting 290(H) 60 - 99 mg/dL [facility] Comment:A fasting glucose of 126 mg/dl or greater on more than oneoccasion is considered diagnostic of diabetes. 09/19/2024 10:0 0 AM EST 09/19/2024 11:32 AM EST Generic External Data Provider LAB BLOOD ORDERAB LES Final Result Performing Organization Address [facility] de Phone Number [facility] [address] [place] [phone] * Hepatic Function Panel (09/19/2024 10:00 AM EST) Only the most recent of2 resultswithin the time period is included. Bilirubin, Direct 0.1 0.0 - 0.5 mg/dL [facility] 09/19/2024 10:0 0 AM EST 09/19/2024 11:32 AM EST Generic External Data Provider LAB BLOOD ORDERAB LES Final Result Performing Organization Address [facility] de Phone Number [facility] [address] [place] [phone] * (ABNORMAL) Lipid Panel, Standard (09/19/2024 10:00 AM EST) Only the most recent of2 resultswithin the time period is included. Triglycerides 209(H) <150 mg/dL [facility] Comment:Desirable Triglyceri de: less than 150 mg/dLBorderline High Triglyceride 150-199 mg/dLHigh Triglyceride: 200-499 mg/dLVery High Triglyceride: greater than or equal to 5OO mg/dL Cholesterol 142 <200 mg/dL [facility] Comment:Desirable Cholestero l: less than 200 mg/dLBorderline High Cholesterol: 200-239 mg/dLHigh Cholesterol: greater than 239 mg/dL LDL Cholesterol Calculated 64 <100 mg/dL [facility] Comment:Desirable LDL: less than 100 mg/dLNear Optimal/Above Optimal LDL: 110- 129 mg/dLBorderline High LDL: 130-159 mg/dLHigh LDL: 160-189 mg/dLVery High LDL: greater than or equal to 190 mg/dL HDL Cholesterol 37(L) >40 mg/dL [facility] Comment:Desirable HDL: great er than 40 mg/dL Note: This HDL assay may give artificially low results in patients with liver disease. 09/19/2024 10:0 0 AM EST 09/19/2024 11:32 AM EST us Generic External Data Provider LAB BLOOD ORDERAB LES Final Result [facility] [address] [place] [phone] * (ABNORMAL) Comprehensive Metabolic Panel (09/19/2024 10:00 AM EST) Sodium 134(L) 135 - 145 mmol/L [facility] Potassium 3.0(L) 3.3 - 5.1 mmol/L [facility] Chloride 99 96 - 108 mmol/L [facility] Carbon Dioxide 26 22 - 29 mmol/L [facility] Anion Gap 12 12 - 20 [facility] Urea Nitrogen (BUN) 18(H) 9 - 16 mg/dL [facility] Creatinine, Serum 1.23 0.5 - 1.4 mg/dL [facility] Estimated Glomerular Filt Rate 44 [facility] Comment:Chronic Kidney Disea se: Estimated GFR < 60 mL/min/[id number] Kidney Disease: Estimated GFR < 15 mL/min/1.73m2 Glucose 288(H) 60 - 115 mg/dL [facility] Calcium 8.9 8.4 - 10.2 mg/dL [facility] Bilirubin, Total 0.5 0.0 - 1.0 mg/dL [facility] Aspartate Amino Transferase 23 5 - 31 U/L [facility] Alanine Aminotransferase 27 0 - 31 U/L [facility] Total Protein 7.5 6.5 - 8.0 g/dL [facility] Albumin Level 4.1 3.5 - 5.0 g/dL [facility] Alkaline Phosphatase 108 39 - 117 U/L [facility] 09/19/2024 10:0 0 AM EST 09/19/2024 11:32 AM EST Generic External Data Provider LAB BLOOD ORDERAB LES Final Result Performing Organization Address City/State/[facility] Co de Phone Number [facility] [address] [place], [place] [phone] * (ABNORMAL) POCT HGB A1C (07/27/2024 2:31 PM EST) Pathologist [facility] Hemoglobin A1C 11.9(A) 4.0 - 6.0 % QC Media Lot # [id number] Lot# Expiration Date 628, Blood 07/27/2024 2:31 PM EST Brittnee Hanna MD POINT OF CARE TEST ENTER/E DIT ORDERABLES Final Result * (ABNORMAL) POCT Glucose (07/27/2024 2:29 PM EST) Pathologist [facility] Glucose Blood, POC 331(A) 60 - 200 mg/dL QC Media Lot # [id number] Lot# Expiration Date [id number] Blood Capillary blood specimen / Unknown 07/27/2024 2:29 PM EST Brittnee Hanna MD POINT OF CARE TEST ENTER/E DIT ORDERABLES Final Result * BI Mammogram Screening Tomosynthesis Bilateral (07/24/2023 3:39 PM EST) Anatomical Region Laterality Modality Breast Bilateral Mammography 07/24/2023 3:39 PM EST Narrative 08/12/2023 3:43 AM EST ? [facility] ? [address] ?[place] [address] ? Mammography Report ? Signed ? Patient: Cynthia Perry ?MR#: M ?? [id number] ? : 1965 ?Acct:[id number] ? Age/Sex: 57 / F ?ADM Date: 07/24/23 ? Loc: HO.MAMMO ? Attending Dr: Brittnee Hanna MD ? Ordering Physician: Brittnee Hanna MD ?Results: 1N ?? egative ? Date of Service: 07/24/23 ?Follow Up: 1 Year From Orig ?? inal Mammogram ? Procedure(s): MM tomosynthesis screening BI ?? Accession Number(s): [id number] ? cc: Brittnee Hanna MD ? EXAMINATION: ?? MM SCREENING DIGITAL BREAST TOMOSYNTHESIS, BILATERAL ? CLINICAL INFORMATION: ? Screening. Asymptomatic. ? COMPARISON: ?? Mammography: This study is compared with prior exams dating back to ?? 2017. ? TECHNIQUE: ?? Digital breast tomosynthesis is [...] 0340 ? DD/ 1539 ? TD/TT: ? Chief Psychologist: ? Procedure Note Kelle, Image - 08/12/2023 [facility] [address] [place] [address] Mammography Report Signed Patient: Javy Perry#: M [id number] : 1965Acct:[id number] Age/Sex: 57 / FADM Date: 07/24/23 Loc: HO.MAMMO Attending Dr: Brittnee Hanna MD Ordering Physician: Brittnee Hanna MDResults: 1N egative Date of Service: 07/24/23Follow Up: 1 Year From Orig inal Mammogram Procedure(s): MM tomosynthesis screening BI Accession Number(s): [id number] cc: Brittnee Hanna MD EXAMINATION: MM SCREENING [...] in OV> 08/12/23 0340 DD/ 1539 TD/TT: Chief Psychologist: Brittnee Hanna MD [facility] BI PROCEDURES Edited R esult - Final * THINPREP TIS PAP AND HPV mRNA E6/E7, CT/NG, TRICH (05/16/2022 9:44 AM EDT) Chlamydia trachomatis RNA, TMA, Urogenital NOT DETECTED NOT DETECTED [facility]VERT[facility] Clinical Information: None given CONVERTED LEGACY LABS COMMENT SEE COMMENT CONVERTE D LEGACY LABS Comment: The analytical performance characteristics of this assay, when used to test SurePath(TM) specimens have been determined by [employer]. The modifications have not been cleared or approved by the FDA. This assay has been validated pursuant to the CLIA regulations and is used for clinical purposes. ?? For additional information, please refer to https://education.[employer]/faq/VFG562 (This link is being provided for information/ educational purposes only.) ?? COMMENT SEE COMMENT CONVERTE Johnathan LEGACY LABS Comment: EXPLANATORY NOTE: ? The [...] with computer assisted technology. CONVERTED LEGACY LABS Clothes Presser: SEE COMMENT CONVERTED LEGACY LABS Comment: RXB, CT(ASCP) CT screening location: [address] ??[id number] HPV nRNA E6/E7 Not Detected Not Detected CONVERTED [facility]GACY LABS Comment: Methodology: Fire Truck Driver-Mediated Amplification This assay detects E6/E7 viral messenger RNA (mRNA) from 14 high-risk HPV types (16,18,31,33,35,39,45,51,52,56,58,59,66,68). ? Cervical sources are required for HPV testing. If a vaginal source from a patient who has had a total hysterectomy with removal of cervix was ?? submitted, please contact the testing laboratory for alternative testing options. ?? For additional information, please refer to http://[employer]/faq/COL623m9 (This link if provided for information/ educational [...] of this assay have been determined by [employer]. The modifications have not been cleared or approved by the FDA. This assay has been validated pursuant to the CLIA regulations and is used for clinical purposes. ?? For additional information, please refer to http://education.[employer]/ faq/Trichomonastma (This link is being provided for information/ educational purposes only.) ?? 05/16/2022 9:44 AM EDT us Brittnee Hanna MD LAB PATHOLOGY ORDERABLES F inal Result CONVERTED LEGACY LABS * Pap Smear (05/16/2022 12:00 AM EDT) Swab Historical Provider LAB CYTOLOGY ORDERABLES F inal Result [facility]ISTORICAL LAB[facility] * Hm Colonoscopy (08/21/2020) Colonoscopy hyperplastic polyp Dr. Olivarez Historical Provider HEALTH MAINTENANCE Final Result * HIV-1 antibody, EIA (04/25/2019) External HIV-1 Antibody Negative Blood Venous blood specimen / Unknown Result [facility] Historical Provider LAB BLOOD ORDERABLES Emelia l Result * Hepatitis C Antibody with Reflex to HCV, RNA, Quantitative, Real-Time PCR (02/22/2014) Blood Venous blood specimen / Unknown 02/22/2014 [facility] Provider LAB BLOOD ORDERABLES Emelia l Result from Last 3 Months or Most Recently Relevant to Health Maintenance Insurance [facility] C3 Advance Directives Documents on File Type Date Recorded Patient Custom Shop Worker Expl anation Advance Directives and Living Will 04/07/2024 Health Care Proxy 04/07/24 Care Teams Product Mgr Relationship Specialty Start Date End Date Jacques, MD Brittnee [address] [place] [phone] PCP - General Family Medicine 08/17/18 Martina Mancia OD [address] [place] [phone] Optometry 07/26/24 Donna Sutton Refurbish TechnicianMailer Apprentice 05/06/24
--- OUTSIDE RECORDS SUMMARY | 2024-10-04 11:11 | XMS_ITS | Encounter Summary ---
Author Organization [employer] Address [address] [place] [address] Care Team Providers Care Fuel System Maintenance Supervisor Name Role Phone Brittnee Hanna MD Primary Care Provider [phone] Martina Mancia OD Unavailable [phone] Reason for Visit * Reason Onset Date Comments Appointment Request 09/07/2024 Encounter Details Date Type Department Care Team ([facility] st Contact Info) Description 09/07/2024 Telephone [facility]IC[facility] [address] [place] [address] Di [place], PharmD [address] [place] [address] Appointment Request Social History Tobacco Use Types [...] encounter Miscellaneous Notes * Telephone Encounter - oZe Ferrera RN - 09/08/2024 12:23 PM EST Called pt using [facility] patient information coordinator Nivia #[id number], scheduled pt for 09/21/24 at 3:30pm. [facility] * Telephone Encounter - [...] Description 11/07/2024 1:00 PM EDT Office Visit [facility] OPTOMETRY [address] [place], [place] [phone] Martina Mancia, OD [address] [place] [address] documented as of this encounter Goals Goal Patient Goal Type Associated Problems Recent Progress Patient-Stated? Author Blood Pressure < 140/90 Blood Pressure 112/58(2024 3:02 PM EST) No Di Meyers PharmJohnathan Hemoglobin A1c < 7 Result Component 11.9(07/27/20 2:31 PM EST) No Di Meyers PharmD documented as of this encounter Visit Diagnoses Not on filedocumented in this encounter Additional Health Concerns Assessment Noted Time PHQ-9 Depression Total Score: 15 024 10:35 AM EDT documented as of this encounter Care Teams Fuel System Maintenance Supervisor Relationship Specialty Start Date End Date Brittnee Hanna MD [address] [place] [address] PCP - General Family Medicine 08/17/18 Martina Mancia OD [address] [place] [address] Optometry 07/26/24 Donna Sutton Jackhammer Splitter OperatorMachine Greaser 05/06/24 documented as of this encounter
== END 2024-10-04 11:43 | disposition home or self-care (01) ==
PROVIDERS: PCP Family Medicine; Visit Provider Physician Assistant Medical
DX: E11.9 Type 2 diabetes mellitus without complications (principal); Z79.4 Long term (current) use of insulin

== ENCOUNTER → 2024-10-04 10:13 | Outpatient (BNVA) | payer MEDICAID, SELFPAY | PROVIDERS: PCP Family Medicine; Visit Provider Physician Assistant Medical | DX: E11.22 Type 2 diabetes mellitus with diabetic chronic kidney disease (principal); E11.65 Type 2 diabetes mellitus with hyperglycemia; N18.30 Chronic kidney disease, stage 3 unspecified; Z79.4 Long term (current) use of insulin | CPT/HCPCS: 82947; 83036; 99212 ==

== ENCOUNTER 2024-10-06 13:35 | Outpatient (REF) | payer MEDICAID, SELFPAY ==
--- OUTSIDE RECORDS SUMMARY | 2024-10-06 14:34 | XMS_ITS | Encounter Summary ---
Author Organization [employer] Address [address] [place] [address] Care Team Providers Care In House Cra Name Role Phone Brittnee Hanna MD Primary Care Provider [phone] aTn Mancian OD Unavailable [phone] Encounter Details Date Type Department Care Team ([facility] Contact Info) Description 10/04/2024 Orders Only GENERIC [...] Office Visit [facility] OPTOMETRY [address] [place] [address] GavinoMartina, OD [address] [place] [address] documented as of this encounter Goals Goal [...] Whole Blood 353(HH) 60 - 115 mg/dL [facility] Comment:METER #: [id number] Testing performed in the Endocrinology Department [address] , [address], [facility]. 10/04/2024 10:3 3 AM EST 10/04/2024 10:39 AM EST us Generic External Data Provider LAB BLOOD ORDERAB LES Final Result [facility] [address] [place] [address] [phone] documented in this encounter Visit Diagnoses Not on filedocumented in this encounter Additional Health Concerns Assessment Noted Time PHQ-9 Depression Total Score: 15 024 10:35 AM EDT documented as of this encounter Care Teams In House Cra Relationship Specialty Start Date End Date Brittnee Hanna MD [address] [place] [address] PCP - General Family Medicine 08/17/18 Martina Mancia OD [address] [place] [phone] Optometry 07/26/24 Donna Sutton Sales TeacherCoal Cutting Machine Operator 05/06/24 documented as of this encounter
--- OUTSIDE RECORDS SUMMARY | 2024-10-06 14:34 | XMS_ITS | Encounter Summary ---
Author Organization [employer] Address [address] [place] [address] Care Team Providers Care Black Mill Operator Name Role Phone Brittnee Hanna MD Primary Care Provider + [phone] Di [place] PharmD Unavailable Martina Mancia OD Unavailable Encounter Details Date Type Department Care Team (Late Contact Info) Description 08/25/2022 Orders Only [facility] MED & PEDS [address] [place], [place] [phone] Jeana Vital LPN Social History Tobacco Use [...] Date Type Department Care Team ([facility] Contact Info) Description 11/07/2024 1:00 PM EDT Office Visit [facility] OPTOMETRY [address] [place] [address] Martina Mancia, OD [address] [place], [place] [phone] documented as of this encounter Procedures Procedure Name Priority Date/Time Associated Diagnosis Comments HEPATIC FUNCTION PANEL Routine 07/21/2023 12:47 PM EST documented in this encounter Results * (ABNORMAL) Hepatic Function Panel (07/21/2023 12:47 PM EST) Bilirubin, Total 0.3 0.0 - 1.0 mg/dL [facility] Bilirubin, Direct 0.1 0.0 - 0.5 mg/dL [facility] Aspartate Amino Transferase 18 5 - 31 U/L [facility] Alanine Aminotransferase 33(H) 0 - 31 U/L [facility] Total Protein 7.4 6.5 - 8.0 g/dL [facility] Albumin Level 4.3 3.5 - 5.0 g/dL [facility] Alkaline Phosphatase 142(H) 39 - 117 U/L [facility] 07/21/2023 12:4 7 PM EST 07/21/2023 3:59 PM EST us Brittnee Hanna MD LAB BLOOD ORDERABLES Final Result Performing Organization Address City/State/[facility] Co de Phone Number [facility] [address] [place] [phone] documented in this encounter Visit Diagnoses Not on filedocumented in this encounter Care Teams Black Mill Operator Relationship Specialty Start Date End Date Brittnee Hanna MD [address] [place] [phone] PCP - General Family Medicine 08/17/18 Di Hyde PharmD [address] [place] [phone] Pharmacist Internal Medicine 01/06/23 08/31/24 Martina Mancia OD [address] [place] [phone] Optometry 07/26/24 Donna Sutton Piano TechnicianPresbyterian Clergy 05/06/24 documented as of this encounter
--- OUTSIDE RECORDS SUMMARY | 2024-10-06 14:34 | XMS_ITS | Encounter Summary ---
Author Organization [employer] [facility] Address [address] [place] [address] Care Team Providers Care Data Entry Associate Name Role Phone Brittnee Hanna MD Primary Care Provider +- [phone] Di Hyde PharmD Unavailable Martina Mancia OD Unavailable [phone] Encounter Details Date Type Department Care Team ([facility] Contact Info) Description 09/22/2022 Abstract [facility] MEDICINE [address] [place] [address] Brittnee Hanna MD [address] [place] [address] Social History Tobacco Use Types Packs/Day Years [...] Upcoming Encounters Date Type Department Care Team ([facility] Contact Info) Description 11/07/2024 1:00 PM EDT Office Visit [facility] OPTOMETRY [address] [place], [place] [phone] Martina Mancia, OD [address] [place] [address] documented as of this encounter Procedures Procedure [...] Blood Venous blood specimen / Unknown Result [facility] Provider MD LAB BLOOD ORDERABLES Emelia l Result * Basic Metabolic Panel (06/05/2022) Creatinine 1.0 0.5 - 1.1 mg/dL Blood Venous blood specimen / Unknown Result [facility] Provider MD LAB BLOOD ORDERABLES Emelia l Result * (ABNORMAL) Lipid Panel, Standard (06/05/2022) Triglycerides 163(A) 40 - 160 mg/dL Cholesterol 209(A) 0 - 200 mg/dL HDL Cholesterol 70 35 - 70 mg/dL LDL Cholesterol 111 mg/dL Blood Venous blood specimen / Unknown Result [facility] Provider MD LAB BLOOD ORDERABLES Emelia l Result * Pap Smear (05/16/2022 12:00 AM EDT) Swab [facility] Provider LAB CYTOLOGY ORDERABLES F inal Result [facility] * Colonoscopy (08/21/2020) Colonoscopy hyperplastic polyp Dr. Olivarez [facility] Provider HEALTH MAINTENANCE Final Result * HIV-1 antibody, EIA (04/25/2019) External HIV-1 Antibody Negative Blood Venous blood specimen / Unknown Result [facility] Provider LAB BLOOD ORDERABLES Emelia l Result * Mammography (06/14/2018) Mammogram normal Anatomical Region Laterality Modality Other [facility] Provider HEALTH MAINTENANCE Final Result * Hepatitis C Antibody with Reflex to HCV, RNA, Quantitative, Real-Time PCR (02/22/2014) Blood Venous blood specimen / Unknown 02/22/2014 Result [facility] Provider LAB BLOOD ORDERABLES Emelia l Result documented in this encounter Visit Diagnoses Not on filedocumented in this encounter Additional Health Concerns Assessment Noted Time PHQ-9 Depression Total Score: 0 09/22/19 23 9:47 AM EST documented as of this encounter Care Teams Data Entry Associate Relationship Specialty Start Date End Date Brittnee Hanna MD [address] [place] [address] PCP - General Family Medicine 08/17/18 Di Hyde PharmD [address] [place] [phone] Pharmacist Internal Medicine 01/06/23 08/31/24 Martina Mancia OD [address] [place] [address] [phone] Optometry 07/26/24 Donna Sutton Brineyard SupervisorVideo Intern 05/06/24 documented as of this encounter
--- OUTSIDE RECORDS SUMMARY | 2024-10-06 14:34 | XMS_ITS | Encounter Summary ---
Author Organization [employer] Address [address] [place] [address] Care Team Providers Care Pearl Glue Operator Name Role Phone Brittnee Hanna MD Primary Care Provider +1- [phone] Tan Mancian OD Unavailable [phone] Encounter Details Date Type Department Care Team ([facility] Contact Info) Description 09/19/2024 Orders Only GENERIC [...] Description 11/07/2024 1:00 PM EDT Office Visit [facility] OPTOMETRY [address] [place] [address] GavinoMartina, OD [address] [place] [address] documented as of this encounter Goals Goal [...] Stimulating Hormone 0.76 0.32 - 4.0 uIU/mL [facility] Comment:TSH 3rd Generation ( [facility]) 09/19/2024 10:0 0 AM EST 09/19/2024 11:32 AM EST us Generic External Data Provider LAB BLOOD ORDERAB LES Final Result [facility] [address] [place] [address] [phone] * (ABNORMAL) Lipid Panel, Standard (09/19/2024 10:00 AM EST) Triglycerides 209(H) <150 mg/dL [facility] Comment:Desirable Triglyceri de: less than 150 mg/dLBorderline High Triglyceride 150-199 mg/dLHigh Triglyceride: 200-499 mg/dLVery High Triglyceride: greater than or equal to 5OO mg/dL Cholesterol 142 <200 mg/dL [facility] Comment:Desirable Cholestero l: less than 200 mg/dLBorderline High Cholesterol: 200-239 mg/dLHigh Cholesterol: greater than 239 mg/dL LDL Cholesterol Calculated 64 <100 mg/dL [facility] Comment:Desirable LDL: less than 100 mg/dLNear Optimal/Above Optimal LDL: 110- 129 mg/dLBorderline High LDL: 130-159 mg/dLHigh LDL: 160-189 mg/dLVery High LDL: greater than or equal to 190 mg/dL HDL Cholesterol 37(L) >40 mg/dL [facility] Comment:Desirable HDL: great er than 40 mg/dL Note: This HDL assay may give artificially low results in patients with liver disease. 09/19/2024 10:0 0 AM EST 09/19/2024 11:32 AM EST us Generic External Data Provider LAB BLOOD ORDERAB LES Final Result Performing Organization Address [facility] Co de Phone Number [facility] [address] [place] [phone] * (ABNORMAL) Glucose (09/19/2024 10:00 AM EST) Glucose Fasting 290(H) 60 - 99 mg/dL [facility] Comment:A fasting glucose of 126 mg/dl or greater on more than oneoccasion is considered diagnostic of diabetes. 09/19/2024 10:0 0 AM EST 09/19/2024 11:32 AM EST us Generic External Data Provider LAB BLOOD ORDERAB LES Final Result Performing Organization Address [facility] Phone Number [facility] [address] [place] [phone] * Hepatic Function Panel (09/19/2024 10:00 AM EST) Bilirubin, Direct 0.1 0.0 - 0.5 mg/dL [facility] 09/19/2024 10:0 0 AM EST 09/19/2024 11:32 AM EST Generic External Data Provider LAB BLOOD ORDERAB LES Final Result Performing Organization Address [facility] Co de Phone Number [facility] [address] [place] [phone] * (ABNORMAL) Comprehensive Metabolic Panel (09/19/2024 10:00 AM EST) Sodium 134(L) 135 - 145 mmol/L [facility] Potassium 3.0(L) 3.3 - 5.1 mmol/L [facility] Chloride 99 96 - 108 mmol/L [facility] Carbon Dioxide 26 22 - 29 mmol/L [facility] Anion Gap 12 12 - 20 [facility] Urea Nitrogen (BUN) 18(H) 9 - 16 mg/dL [facility] Creatinine, Serum 1.23 0.5 - 1.4 mg/dL [facility] Estimated Glomerular Filt Rate 44 [facility] Comment:Chronic Kidney Disea se: Estimated GFR < 60 mL/min/1.96r9Mzxady Kidney Disease: Estimated GFR < 15 mL/min/1.73m2 Glucose 288(H) 60 - 115 mg/dL [facility] Calcium 8.9 8.4 - 10.2 mg/dL [facility] Bilirubin, Total 0.5 0.0 - 1.0 mg/dL [facility] Aspartate Amino Transferase 23 5 - 31 U/L [facility] Alanine Aminotransferase 27 0 - 31 U/L [facility] Total Protein 7.5 6.5 - 8.0 g/dL [facility] Albumin Level 4.1 3.5 - 5.0 g/dL [facility] Alkaline Phosphatase 108 39 - 117 U/L [facility] 09/19/2024 10:0 0 AM EST 09/19/2024 11:32 AM EST us Generic External Data Provider LAB BLOOD ORDERAB LES Final Result [facility] [address] [place] [phone] [phone] * (ABNORMAL) Lipid Panel, Standard (09/19/2024 10:00 AM EST) Triglycerides 206(H) <150 mg/dL [facility] Comment:Desirable Triglyceri de: less than 150 mg/dLBorderline High Triglyceride 150-199 mg/dLHigh Triglyceride: 200-499 mg/dLVery High Triglyceride: greater than or equal to 5OO mg/dL Cholesterol 141 <200 mg/dL [facility] Comment:Desirable Cholestero l: less than 200 mg/dLBorderline High Cholesterol: 200-239 mg/dLHigh Cholesterol: greater than 239 mg/dL LDL Cholesterol Calculated 65 <100 mg/dL [facility] Comment:Desirable LDL: less than 100 mg/dLNear Optimal/Above Optimal LDL: 110- 129 mg/dLBorderline High LDL: 130-159 mg/dLHigh LDL: 160-189 mg/dLVery High LDL: greater than or equal to 190 mg/dL HDL Cholesterol 35(L) >40 mg/dL [facility] Comment:Desirable HDL: great er than 40 mg/dL Note: This HDL assay may give artificially low results in patients with liver disease. 09/19/2024 10:0 0 AM EST 09/19/2024 11:32 AM EST Brittnee Hanna MD LAB BLOOD ORDERABLES Final Result [facility] [address] [place] [phone] * Hepatic Function Panel (09/19/2024 10:00 AM EST) Bilirubin, Total 0.5 0.0 - 1.0 mg/dL [facility] Bilirubin, Direct 0.2 0.0 - 0.5 mg/dL [facility] Aspartate Amino Transferase 23 5 - 31 U/L [facility] Alanine Aminotransferase 26 0 - 31 U/L [facility] Total Protein 7.4 6.5 - 8.0 g/dL [facility] Albumin Level 4.0 3.5 - 5.0 g/dL [facility] Alkaline Phosphatase 108 39 - 117 U/L [facility] 09/19/2024 10:0 0 AM EST 09/19/2024 11:32 AM EST Brittnee Hanna MD LAB BLOOD ORDERABLES Final Result [facility] [address] [place], [place] [phone] * (ABNORMAL) CBC auto differential (09/19/2024 10:00 AM EST) White Blood Count 7.1 4.8 - 10.8 X10*3/uL [facility] Red Blood Count 4.14(L) 4.20 - 5.50 X10*6/uL [facility] Hemoglobin 12.1 12.0 - 16.0 g/dl [facility] Hematocrit 35.6(L) 37.0 - 47.0 % [facility] Mean Corpuscular Volume 86.0 80.0 - 98.0 fL [facility] Mean Corpuscular Hemoglobin 29.2 27.0 - 33.0 pg [facility] Mean Corpuscular HGB Conc 34.0 31.0 - 35.0 g/dl [facility] Red Cell Distribution Width 11.5 11.0 - 16.0 % [facility] Platelet Count 436(H) 160 - 400 X10*3/uL [facility] Mean Platelet Volume 10.6 9.4 - 12.3 fL [facility] Neutrophils Percent Auto 69.4 45 - 73 % [facility] Imm Gran Pct Auto 0.3 0.0 - 0.4 % [facility] Lymphocytes Percent Auto 21.7 20 - 40 % [facility] Monocytes Percent Auto 6.3 2 - 11 % [facility] Eosinophils Percent Auto 2.0 0 - 4 % [facility] Basophils Percent Auto 0.3 0 - 2 % [facility] NRBC Pct Auto 0.0 0.0 - 0.2 /100WBC [facility] Neutrophils Absolute Auto 5.0 2.0 - 8.3 x10*3/uL [facility] Imm Gran Abs Auto 0.02 0.00 - 0.03 X10*3/uL [facility] Lymphocytes Absolute Auto 1.6 1.2 - 4.9 X10*3/uL [facility] Monocytes Absolute Auto 0.5 0.1 - 1.2 X10*3/uL [facility] Eosinophils Absolute Auto 0.1 0.0 - 0.4 X10*3/uL [facility] Basophils Absolute Auto 0.0 0.0 - 0.2 X10*3/uL [facility] NRBC Abs Auto 0.000 0.0 - 0.012 X10*3/uL [facility] 09/19/2024 10:0 0 AM EST 09/19/2024 11:32 AM EST us Generic External Data Provider LAB BLOOD ORDERAB LES Final Result Performing Organization Address City/State/[facility] Co de Phone Number [facility] [address] [place] [phone] documented in this encounter Visit Diagnoses Not on filedocumented in this encounter Additional Health Concerns Assessment Noted Time PHQ-9 Depression Total Score: 15 024 10:35 AM EDT documented as of this encounter Care Teams Pearl Glue Operator Relationship Specialty Start Date End Date Brittnee Hanna MD [address] [place] [address] PCP - General Family Medicine 08/17/18 Martina Mancia OD [address] [place] [address] Optometry 07/26/24 Donna Sutton Aircraft Body RepairerLithostripper 05/06/24 documented as of this encounter
--- OUTSIDE RECORDS SUMMARY | 2024-10-06 14:34 | XMS_ITS | Encounter Summary ---
Author Organization [employer] [facility] Address [address]t [place] [address] Care Team Providers Care Plant Packer Name Role Phone Brittnee Hanna MD Primary Care Provider +- [phone] Di Hyde PharmD Unavailable [phone] Martina Mancia OD Unavailable Encounter Details Date Type Department Care Team ([facility] Contact Info) Description 12/17/2022 Abstract [facility] MEDICINE [address] [place] [address] Brittnee Hanna MD [address] [place] [address] Social History Tobacco Use Types Packs/Day Years [...] Upcoming Encounters Date Type Department Care Team ([facility] Contact Info) Description 11/07/2024 1:00 PM EDT Office Visit [facility] OPTOMETRY [address] [place] [address] Martina Mancia, OD [address] [place] [address] documented as of this encounter Visit Diagnoses Not on filedocumented in this encounter Additional Health Concerns Assessment Noted Time PHQ-9 Depression Total Score: 0 09/22/19 23 9:47 AM EST documented as of this encounter Care Teams Plant Packer Relationship Specialty Start Date End Date Brittnee Hanna MD [address] [place], [place] [phone] PCP - General Family Medicine 08/17/18 Di Hyde, ShabbirD [address] [place] [address] [phone] Pharmacist Internal Medicine 01/06/23 08/31/24 Martina Mancia, JONATHON [address] [place] [phone] Optometry 07/26/24 Donna Sutton Ends Down CheckerEconomics Instructor 05/06/24 documented as of this encounter
--- OUTSIDE RECORDS SUMMARY | 2024-10-06 14:34 | XMS_ITS | Encounter Summary ---
Author Organization [employer] [facility] Address [address] [place] [address] Care Team Providers Care Kitman Name Role Phone Brittnee Hanna MD Primary Care Provider [phone]- [phone] Martina Mancia OD Unavailable [phone] Reason for Referral * Consultation (Routine) - Authorized Specialty Diagnoses / Procedures Referred By Hu melo Referred To Contact Gastroenterology Diagnoses Unintentional weight loss Brittnee Hanna MD [address] [place] [address] Phone: tel: fax: [facility] Referral ID Status Reason Start Date Expiration Date Visits Requested Visits Authorized [id number] Authorized Specialty Services Required 09/07/2024 09/07/2025 1 1 * Consultation (Routine) - Closed Specialty Diagnoses / Procedures Referred By Hu melo Referred To Contact Endocrinology Diagnoses Type 2 diabetes mellitus with hyperglycemia, with long-term current use of insulin ([facility]) Brittnee Hanna MD [address] [place] [address] Phone: tel: fax: [facility] Referral ID Status Reason Start Date Expiration Date V isits Requested Visits Authorized [id number] Closed Specialty Services Required 09/08/2024 09/08/2025 6 6 Encounter Details Date Type Department Care Team (Late st Contact Info) Description 09/07/2024 Orders Only [facility] [address] [place] [address] Brittnee Hanna MD [address] [place] [address] Type 2 diabetes mellitus with hyperglycemia, with long-term current use of insulin ([facility]) (Primary Dx); Unintentional weight loss Social History [...] Description 11/07/2024 1:00 PM EDT Office Visit [facility] OPTOMETRY [address] [place] [address] Martina Mancia OD [address] [place] [address] Scheduled Referrals Name Type Priority Associated Diagnoses Order Schedule Referral to Endocrinology Outpatient Referral Routine Type 2 diabetes mellitus with hyperglycemia, with long-term current use of insulin ([facility]) Expected: 09/07/2024 (Approximate), Expires: 09/07/2025 Referral to [...] hyperglycemia, with long-term current use of insulin ([facility])- Primary Unintentional weight loss Loss of weight documented in this encounter Additional Health Concerns Assessment Noted Time PHQ-9 Depression Total Score: 15 024 10:35 AM EDT documented as of this encounter Care Teams Kitman Relationship Specialty Start Date End Date Brittnee Hanna MD [address] [place] [address] PCP - General Family Medicine 08/17/18 Martina Mancia, JONATHON [address] [place] [address] Optometry 07/26/24 Donna Sutton Pump Servicer SupervisorPie Topper 05/06/24 documented as of this encounter
--- OUTSIDE RECORDS SUMMARY | 2024-10-06 14:34 | XMS_ITS | Encounter Summary ---
Author Organization [employer] Address [address] [place] [address] Care Team Providers Care Gang Ripsaw Operator Name Role Phone Brittnee Hanna MD Primary Care Provider [phone]- [phone] Martina Mancia OD Unavailable [phone] Encounter Details Date Type Department Care Team ([facility] st Contact Info) Description 09/19/2024 Orders Only [facility] MED[facility] [address] [place], [place] [phone] Brittnee Hanna MD [address] [place] [address] Hypokalemia (Primary Dx) Social History Tobacco Use [...] 11/07/2024 1:00 PM EDT Office Visit [facility] OPTOMETRY [address] [place] [address] [phone] Martina Mancia OD [address] [place] [address] documented as of this encounter Goals Goal [...] documented as of this encounter Care Teams Gang Ripsaw Operator Relationship Specialty Start Date End Date Brittnee Hanna MD [address] [place] [address] PCP - General Family Medicine 08/17/18 Martina Mancia OD [address] [place] [phone] Optometry 07/26/24 Donna Sutton Incident Response ConsultantBlending Tank Tender 05/06/24 documented as of this encounter
--- OUTSIDE RECORDS SUMMARY | 2024-10-06 14:34 | XMS_ITS | Encounter Summary ---
Author Organization [employer] Address [address] [place] [address] Care Team Providers Care Tube Teller Name Role Phone Brittnee Hanna MD Primary Care Provider +- [phone] Di Hyde PharmD Unavailable Martina Mancia OD Unavailable [phone] Encounter Details Date Type Department Care Team ([facility] st Contact Info) Description 05/24/2024 Orders Only [facility] [address] [place] [address] Brittnee Hanna MD [address] [place] [address] Social History Tobacco Use Types Packs/Day Years [...] Description 11/07/2024 1:00 PM EDT Office Visit [facility] OPTOMETRY [address] [place] [address] Martina Mancia, OD [address] [place] [address] documented as of this encounter Goals Goal [...] documented as of this encounter Care Teams Tube Teller Relationship Specialty Start Date End Date Brittnee Hanna MD [address] [place] [address] PCP - General Family Medicine 08/17/18 Di Hyde, PharmD [address] [place] [address] Pharmacist Internal Medicine 01/06/23 08/31/24 Mratina Mancia OD [address] [place] [address] Optometry 07/26/24 Donna Sutton Cardiac TechnologistValver 05/06/24 documented as of this encounter
--- OUTSIDE RECORDS SUMMARY | 2024-10-06 14:34 | XMS_ITS | Encounter Summary ---
Author Organization [id number] Address [address] [place] [address] Care Team Providers Care Bus Cleaner Name Role Phone Brittnee Hanna MD Primary Care Provider [phone] Martina Mancia OD Unavailable [phone] Encounter Details Date Type Department Care Team ([facility] Contact Info) Description 10/04/2024 Telephone [facility] [address] [place] [address] Di Hyde, PharmD [address] [place] [address] Social History Tobacco Use Types Packs/Day Years [...] Telephone Encounter - Di Hyde PharmD - 10/04/2024 4:08 PM EST Patient stated that she was seen at [facility] endocrinology office today and has follow up with their team in 2 weeks. documented in this encounter Plan of Treatment Upcoming Encounters Date Type Department Care Team (Late st Contact Info) Description 11/07/2024 1:00 PM EDT Office Visit [facility] OPTOMETRY [address] [place] [address] Gavino, Martina, OD [address] [place] [address] documented as of this encounter Goals Goal [...] documented as of this encounter Care Teams Bus Cleaner Relationship Specialty Start Date End Date [place], Brittnee, MD [address] [place], [place] [phone] PCP - General Family Medicine 08/17/18 Martina Mancia OD [address] [place] [address] Optometry 07/26/24 Donna Sutton Sand BlasterSemi Automatic Sewing Machine Operator 05/06/24 documented as of this encounter
--- OUTSIDE RECORDS SUMMARY | 2024-10-06 14:34 | XMS_ITS | Encounter Summary ---
Author Organization [employer] Address [address] [place] [address] Care Team Providers Care Dragline Engineer Name Role Phone Brittnee Hanna MD Primary Care Provider [phone] Di Hyde PharmD Unavailable Martina Mancia OD Unavailable [phone] Reason for Visit * Reason Onset Date Comments triage 07/21/2022 Encounter Details Date Type Department Care Team ([facility] st Contact Info) Description 07/21/2022 Telephone [facility] [address] [place] [address] Brittnee Hanna MD [address] [place], [place] [phone] triage Social History Tobacco Use Types Packs/Day [...] and depression since losing MH services with [facility]. Per pt has not had any follow up with therapist or psychiatrist. Was supposed to have an appt on 06/15 but when called to r/s was never answered. Has been without meds. Per pt denies any SI/HI. Just increased anxiety. Pt advised that no appts in clinic tomorrow. Pt to come into [facility] tomorrow to speak with on site [facility] clinician and see if [facility] provider (advised cannot guarantee Dr. Hanna) [...] accepted this outcome Please contact pt at [phone] speaks Yoruba documented in this encounter Plan of Treatment Upcoming Encounters Date Type Department Care Team (Late st Contact Info) Description 11/07/2024 1:00 PM EDT Office Visit [facility] OPTOMETRY [address] [place] [address] Martina Mancia, OD [address] [place] [address] documented as of this encounter Visit Diagnoses Not on filedocumented in this encounter Care Teams Dragline Engineer Relationship Specialty Start Date End Date Brittnee Hanna MD [address] [place], [place] [phone] PCP - General Family Medicine 08/17/18 Di Hyde PharmD [address] [place] [address] [phone] Pharmacist Internal Medicine 01/06/23 08/31/24 Martina Mancia OD [address] [place] [address] [phone] Optometry 07/26/24 Donna Sutton Hardwood Floor RefinisherLoft Patternmaker 05/06/24 documented as of this encounter
--- OUTSIDE RECORDS SUMMARY | 2024-10-06 14:34 | XMS_ITS | Encounter Summary ---
Author Organization [employer] Address [address] [place] [address] Care Team Providers Care Order Entry Specialist Name Role Phone Brittnee Hanna MD Primary Care Provider [phone]- [phone] Martina Mancia OD Unavailable [phone] Reason for Visit * Reason Onset Date Comments Results 09/19/2024 Encounter Details Date Type Department Care Team ([facility] Contact Info) Description 09/19/2024 Telephone [facility] MEDICINE [address] [place] [address] Leilani Agarwal RN Results Social History Tobacco [...] up yet. TC then placed topt spouse Aptrick who will ask the pt to call back [facility] in regards to results below. Will postpone [...] Description 11/07/2024 1:00 PM EDT Office Visit [facility] OPTOMETRY [address] [place] [address] Martina Macnia, OD [address] [place] [address] documented as of this encounter Goals Goal [...] documented as of this encounter Care Teams Order Entry Specialist Relationship Specialty Start Date End Date Brittnee Hanna MD [address] [place] [address] PCP - General Family Medicine 08/17/18 Martina Mancia OD [address] [place] [phone] Optometry 07/26/24 Donna Sutton Feather StitcherDirector Of Advertising Sales 05/06/24 documented as of this encounter
--- OUTSIDE RECORDS SUMMARY | 2024-10-06 14:34 | XMS_ITS | Encounter Summary ---
Author Organization [employer] [facility] Address [address] 7t [place] [address] Care Team Providers Care Church History Professor Name Role Phone Brittnee Hanna MD Primary Care Provider +- [phone] Di Hyde PharmD Unavailable Martina Mancia OD Unavailable Reason for Visit * Reason Comments Med Refill Encounter Details Date Type Department Care Team (Late st Contact Info) Description 02/18/2023 Refill [facility] MEDICINE 230 [place] [address] Brittnee Hanna MD 230 [place], [place] [phone] Type 2 diabetes mellitus with other circulatory complication, with long-term current use of insulin ([facility]) Social History Tobacco Use Types Packs/Day [...] EDT Office Visit [facility] OPTOMETRY [address] [place] [address] Martina Mancia OD 230 [place] [address] documented as of this encounter Goals Goal Patient Goal Type Associated Problems Recent Progress Patient-Stated? Author Hemoglobin A1c < 7 Result Component 11.9( 2:31 PM EST) No Di Hyde, PharmD documented as of this encounter Visit Diagnoses Diagnosis Type 2 diabetes mellitus with other circulatory complication, with long-term current use of insulin ([facility]) documented in this encounter Additional Health Concerns Assessment Noted Time PHQ-9 Depression Total Score: 21 023 9:47 AM EDT documented as of this encounter Care Teams Church History Professor Relationship Specialty Start Date End Date Brittnee Hanna MD 230 [place] [address] PCP - General Family Medicine 08/17/18 Di Hyde, PharmD 230 [place] [address] Pharmacist Internal Medicine 01/06/23 08/31/24 Martina Mancia OD [address] [place] [address] Optometry 07/26/24 Donna Sutton Sleeve TailorElectrical Appliance Repairer 05/06/24 documented as of this encounter
--- OUTSIDE RECORDS SUMMARY | 2024-10-06 14:34 | XMS_ITS | Encounter Summary ---
Author Organization [employer] Address [address] 7t [place] [address] Care Team Providers Care Data Processing Equipment Repairer Name Role Phone Brittnee Hanna MD Primary Care Provider +- [phone] Di Hyde PharmD Unavailable [phone] Martina Mancia OD Unavailable [phone] Encounter Details Date Type Department Care Team ([facility] st Contact Info) Description 04/27/2024 Abstract [facility] MEDICINE 230 [place] [address] Brittnee Hanna MD 230 [place], [place] [phone] Social History Tobacco Use Types Packs/Day Years [...] 1:00 PM EDT Office Visit [facility] OPTOMETRY [address] [place] [address] GavinoTann, OD 230 [place] [address] documented as of this encounter Goals Goal [...] as of this encounter Care Teams Data Processing Equipment Repairer Relationship Specialty Start Date End Date Brittnee Hanna MD 230 [place] [address] PCP - General Family Medicine 08/17/18 Di Hyde, PharmD 230 [place] [address] Pharmacist Internal Medicine 01/06/23 08/31/24 Martina Mancia OD [address] [place] [address] Optometry 07/26/24 Donna Sutton Continuity DirectorSteep Tender 05/06/24 documented as of this encounter
--- OUTSIDE RECORDS SUMMARY | 2024-10-06 14:34 | XMS_ITS | Encounter Summary ---
Author Organization [employer] Address [address] 7t [place] [address] Care Team Providers Care Byproducts Maker Name Role Phone Brittnee Hanna MD Primary Care Provider +1- [phone] Martina Mancia OD Unavailable [phone] Reason for Visit * Reason Comments Med Refill Encounter Details Date Type Department Care Team ([facility] st Contact Info) Description 10/03/2024 Refill [facility] MEDICINE 230 [place], [place] [phone] Brittnee Hanna MD 230 [place] [address] Mild intermittent asthma without complication Social History [...] Description 11/07/2024 1:00 PM EDT Office Visit [facility] OPTOMETRY [address] [place] [address] Martina Mancia OD 230 [place] [address] documented as of this encounter Goals Goal [...] documented as of this encounter Care Teams Byproducts Maker Relationship Specialty Start Date End Date Brittnee Hanna MD 230 [place] [address] PCP - General Family Medicine 08/17/18 Martina Mancia OD [address] [place] [address] Optometry 07/26/24 Donna Sutton Certified Health Education SpecialistWarehouse Order Picker 05/06/24 documented as of this encounter
--- OUTSIDE RECORDS SUMMARY | 2024-10-06 14:34 | XMS_ITS | Encounter Summary ---
Author Organization [employer] Address [address] 7t [place] [address] Care Team Providers Care Graduate Engineer Name Role Phone Brittnee Hanna MD Primary Care Provider [phone]- [phone] Di Hyde PharmD Unavailable Martina Mancia OD Unavailable [phone] Reason for Visit * Reason Comments Med Refill Encounter Details Date Type Department Care Team ([facility] Contact Info) Description 05/12/2023 Refill [facility] MED & PEDS [address] [place] [address] Cipriano Campa MD 230 [place] [address] Type 2 diabetes mellitus with other circulatory complication, with long-term current use of insulin ([facility]) Social History Tobacco Use Types [...] Upcoming Encounters Date Type Department Care Team ([facility] Contact Info) Description 11/07/2024 1:00 PM EDT Office Visit [facility] OPTOMETRY 267 [place] [address] Martina Mancia, OD [address] [place] [address] documented as of this encounter Goals Goal Patient Goal Type Associated Problems Recent Progress Patient-Stated? Author Hemoglobin A1c < 7 Result Component 11.9( 4 2:31 PM EST) No Di Hyde, PharmD documented as of this encounter Visit Diagnoses Diagnosis Type 2 diabetes mellitus with other circulatory complication, with long-term current use of insulin ([facility]) documented in this encounter Additional Health Concerns Assessment Noted Time PHQ-9 Depression Total Score: 21 023 9:47 AM EDT documented as of this encounter Care Teams Graduate Engineer Relationship Specialty Start Date End Date Brittnee Hanna MD 230 [place] [address] PCP - General Family Medicine 08/17/18 Di Hyde, PharmD 230 [place] [address] Pharmacist Internal Medicine 01/06/23 08/31/24 Martina Mancia, JONATHON [address] [place] [address] Optometry 07/26/24 Donna Sutton Press OperatorCurb Builder 05/06/24 documented as of this encounter
--- OUTSIDE RECORDS SUMMARY | 2024-10-06 14:34 | XMS_ITS | Encounter Summary ---
Author Organization [employer] Address [address] 7t [place] [address] Care Team Providers Care Qlikview Developer Name Role Phone Brittnee Hanna MD Primary Care Provider +1- [phone] Martina Mancia OD Unavailable [phone] Encounter Details Date Type Department Care Team ([facility] st Contact Info) Description 09/19/2024 Refill [facility] MEDICINE 230 [place] [address] Di Hyde, PharmD 230 [place] [address] Essential hypertension Social History Tobacco Use Types [...] Description 11/07/2024 1:00 PM EDT Office Visit [facility] OPTOMETRY [address] [place] [address] Gavino, Martina, OD [address] [place] [address] documented as of this encounter Goals Goal [...] documented as of this encounter Care Teams Qlikview Developer Relationship Specialty Start Date End Date Brittnee Hanna MD 230 [place], [place] [phone] PCP - General Family Medicine 08/17/18 Martina Mancia OD [address] [place] [address] Optometry 07/26/24 Donna Sutton Finishing InspectorClinical Research Spec 05/06/24 documented as of this encounter
--- OUTSIDE RECORDS SUMMARY | 2024-10-06 14:34 | XMS_ITS | Encounter Summary ---
Author Organization [employer] Address [address] 7t [place] [address] Care Team Providers Care Medical Receptionist Name Role Phone Brittnee Hanna MD Primary Care Provider +1- [phone] Martina Mancia OD Unavailable [phone] Reason for Visit * Reason Onset Date Comments Appointment Request 09/07/2024 Encounter Details Date Type Department Care Team ([facility] st Contact Info) Description 09/07/2024 Telephone [facility] MEDICINE 230 [place] [address] Di Hyde, PharmD 230 [place] [address] Appointment Request Social History Tobacco Use Types [...] 09/08/2024 12:23 PM EST Called pt using [facility] building services engineer Nivia #[id number], scheduled pt for 09/21/24 at 3:30pm. [facility] * Telephone Encounter [...] Description 11/07/2024 1:00 PM EDT Office Visit [facility] OPTOMETRY [address] [place], [place] [phone] Martina Mancia, OD [address] [place] [address] documented as of this encounter Goals Goal [...] documented as of this encounter Care Teams Medical Receptionist Relationship Specialty Start Date End Date Brittnee Hanna MD 230 [place] [address] PCP - General Family Medicine 08/17/18 Martina Mancia OD [address] [place] [address] Optometry 07/26/24 Donna Sutton Gas Operations SuperintendentAutopsy Pathologist 05/06/24 documented as of this encounter
--- OUTSIDE RECORDS SUMMARY | 2024-10-06 14:34 | XMS_ITS | Encounter Summary ---
Author Organization [employer] Address [address] 7t [place] [address] Care Team Providers Care Program Support Specialist Name Role Phone Brittnee Hanna MD Primary Care Provider +1- [phone] Martina Mancia OD Unavailable [phone] Encounter Details Date Type Department Care Team ([facility] Contact Info) Description 09/21/2024 Telephone [facility] MEDICINE 230 [place], [place] [phone] Brittnee Hanna MD 230 [place] [address] Social History Tobacco Use Types Packs/Day Years [...] 1:00 PM EDT Office Visit [facility] OPTOMETRY [address] [place] [address] Martina Mancia, OD 230 [place] [address] documented as of this encounter Goals Goal [...] documented as of this encounter Care Teams Program Support Specialist Relationship Specialty Start Date End Date Brittnee Hanna MD [address] [place] [address] PCP - General Family Medicine 08/17/18 Martina Mancia OD [address] [place] [address] Optometry 07/26/24 Donna Sutton Assistant Golf CoachRest Room Attendant 05/06/24 documented as of this encounter
--- OUTSIDE RECORDS SUMMARY | 2024-10-06 14:34 | XMS_ITS | Encounter Summary ---
Author Organization [employer] Address [address] 7t [place] [address] Care Team Providers Care Fingerprint Classifier Name Role Phone Brittnee Hanna MD Primary Care Provider [phone]- [phone] Di Hyde PharmD Unavailable Martina Mancia OD Unavailable [phone] Reason for Visit * Reason Onset Date Comments Appointment Request 07/18/2024 Encounter Details Date Type Department Care Team ([facility] st Contact Info) Description 07/18/2024 Telephone [facility] MEDICINE 230 [place] [address] Brittnee Hanna MD 230 [place], [place] [phone] Appointment Request Social History Tobacco Use Types [...] Description 11/07/2024 1:00 PM EDT Office Visit [facility] OPTOMETRY [address] [place] [address] Gavino, Martina, OD [address] [place] [address] documented as of this encounter Goals Goal [...] documented as of this encounter Care Teams Fingerprint Classifier Relationship Specialty Start Date End Date Brittnee Hanna MD 230 [place] [address] PCP - General Family Medicine 08/17/18 Di Hyde PharmD 230 [place] [address] Pharmacist Internal Medicine 01/06/23 08/31/24 Martina Mancia OD [address] [place] [address] Optometry 07/26/24 Donan Sutton Patient Financial CoordinatorAmbulance Driver Paramedic 05/06/24 documented as of this encounter
--- OUTSIDE RECORDS SUMMARY | 2024-10-06 14:34 | XMS_ITS | Encounter Summary ---
Author Organization [employer] Address [address] 7t [place] [address] Care Team Providers Care Camp Cook Name Role Phone Brittnee Hanna MD Primary Care Provider +1- [phone] Martina Mancia OD Unavailable Encounter Details Date Type Department Care Team ([facility] Contact Info) Description 09/20/2024 Telephone [facility] MEDICINE 230 [place], [place] [phone] Flory Kaufman RN Social History Tobacco Use [...] Tc to pt via bls id: [id number] to let them know per PCP Please [...] Description 11/07/2024 1:00 PM EDT Office Visit [facility] OPTOMETRY [address] [place] [address] Martina Mancia, OD [address] [place] [address] documented as of this encounter Goals Goal [...] documented as of this encounter Care Teams Camp Cook Relationship Specialty Start Date End Date Brittnee Hanna MD [address] [place] [address] PCP - General Family Medicine 08/17/18 Martina Mancia OD [address] [place] [address] Optometry 07/26/24 Donna Sutton Dope House Operator HelperSql Database Programmer 05/06/24 documented as of this encounter
--- OUTSIDE RECORDS SUMMARY | 2024-10-06 14:34 | XMS_ITS | Encounter Summary ---
Author Organization [employer] Address [address] 7t [place] [address] Care Team Providers Care Elementary School Registrar Name Role Phone Brittnee Hanna MD Primary Care Provider [phone]- [phone] Di Hyde PharmD Unavailable Martina Mancia OD Unavailable Reason for Visit * Reason Comments Med Refill Encounter Details Date Type Department Care Team (Late st Contact Info) Description 07/21/2023 Refill [facility] MED & PEDS [address] [place], [place] [phone] Brittnee Hanna MD [address] [place], [place] [phone] Mild intermittent asthma without complication Social History [...] 11/07/2024 1:00 PM EDT Office Visit [facility] OPTOMETRY [address] [place] [phone] Martina Mancia OD 230 [place] [address] documented as of this encounter Goals Goal [...] documented as of this encounter Care Teams Elementary School Registrar Relationship Specialty Start Date End Date Brittnee Hanna MD [address] [place] [address] PCP - General Family Medicine 08/17/18 Di Hyde, ShabbirD [address] [place] [address] Pharmacist Internal Medicine 01/06/23 08/31/24 Martina Mancia OD [address] [place] [address] Optometry 07/26/24 Donna Sutton Green Prize PackerCharter Boat Captain 05/06/24 documented as of this encounter
--- OUTSIDE RECORDS SUMMARY | 2024-10-06 14:34 | XMS_ITS | Encounter Summary ---
Author Organization [employer] Address [address] 7t [place] [address] Care Team Providers Care Tar Distillation Supervisor Name Role Phone Brittnee Hanna MD Primary Care Provider +1- [phone] Martina Mancia OD Unavailable [phone] Reason for Visit * Reason Onset Date Comments Referral 09/19/2024 Encounter Details Date Type Department Care Team ([facility] st Contact Info) Description 09/19/2024 Telephone [facility] MEDICINE 230 [place] [address] Brittnee Hanna MD 230 [place] [address] Referral Social History Tobacco Use Types Packs/Day [...] 09/19/2024 10:34 AM EST Tc from Donna [facility] health care recruiter informing pt is requesting a referral for physical therapy Any question please return call to Donna (health care recruiter) [phone] documented in this encounter Plan of Treatment Upcoming Encounters Date Type Department Care Team (Late st Contact Info) Description 11/07/2024 1:00 PM EDT Office Visit [facility] OPTOMETRY [address] [place] [address] GavinoMartina pineda, OD [address] [place] [address] documented as of this encounter Goals Goal [...] documented as of this encounter Care Teams Tar Distillation Supervisor Relationship Specialty Start Date End Date Brittnee Hanna MD [address] [place] [address] PCP - General Family Medicine 08/17/18 Martina Mancia OD [address] [place] [address] Optometry 07/26/24 Donna Sutton Personnel OfficerLatex Thread Machine Operator 05/06/24 documented as of this encounter
--- OUTSIDE RECORDS SUMMARY | 2024-10-06 14:34 | XMS_ITS | Encounter Summary ---
Author Organization [employer] Address [address] 7t [place] [address] Care Team Providers Care Skiver Operator Name Role Phone Brittnee Hanna MD Primary Care Provider +1- [phone] Martina Mancia OD Unavailable [phone] Reason for Visit * Reason Onset Date Comments Med Refill 09/12/2024 Encounter Details Date Type Department Care Team (Late st Contact Info) Description 09/12/2024 Refill [facility] MED & PEDS [address] [place], [place] [phone] Brittnee Hanna MD 230 [place] [address] Social History Tobacco Use Types Packs/Day Years [...] Description 11/07/2024 1:00 PM EDT Office Visit [facility] OPTOMETRY [address] [place] [address] Martina Mancia OD 230 [place] [address] documented as of this encounter Goals Goal [...] documented as of this encounter Care Teams Skiver Operator Relationship Specialty Start Date End Date Brittnee Hanna MD 230 [place] [address] PCP - General Family Medicine 08/17/18 Martina Mancia OD [address] [place] [address] Optometry 07/26/24 Donna Sutton Ecommerce Merchandising ManagerFacilities Maintenance Engineer 05/06/24 documented as of this encounter
--- OUTSIDE RECORDS SUMMARY | 2024-10-06 14:34 | XMS_ITS | Clinical Summary ---
Author Organization [employer] Address [address] [place] [address] Care Team Providers Care Buffing Line Set Up Worker Name Role Phone Brittnee Hanna MD Primary Care Provider [phone] Tan Mancian OD Unavailable [phone] Allergies Active Allergy Reactions Criticality Noted Date Comments Penicillin V 08/13/2010 Other reaction(s): unspecified Penicillins Hives 03/17/2022 Shellfish-Derived Products Swelling High 0 Other reaction(s): unspecified Medications * This document contains information received from the source organization and may not represent a complete record from that organization. Continuous Blood Gluc Automated Process Operator (FreeStyle Ric 2 [place]) device Use as directed 1 each 023 Active insulin lispro (HumaLOG) 100 UNIT/ML injectionIndica tions:Type 2 diabetes mellitus with other circulatory complication, with long-term current use of insulin ([facility]) INJECT SUBCUTANEOUSLY DIRECTED PER SLIDING SCALE: BLOOD SUGAR <150 = 0U, 151-200 = 2U, 201-250 = 4U, 251-300 = 6U, 301-350 = 8U, >350 = 10U AND CALL DOCTOR 15 mL 11 024 Active Continuous Glucose Sensor (FreeStyle Ric 2 Sensor) miscIndications :Type 2 diabetes mellitus with hyperglycemia, with long-term current use of insulin ([facility]/HCC) USE DIRECTED TO TEST BLOOD SUGAR CHANGE EVERY 14 DAYS 2 each 024 Active amLODIPine (Norvasc) 5 MG tabletIndicatio ns:Essential hypertension Take 1 tablet (5 mg) by mouth Once per day. 30 tablet 024 2024 Active atorvastatin (Lipitor) 80 MG tabletIndicatio ns:Type 2 diabetes mellitus with hyperglycemia, with long-term current use of insulin ([facility]),Dysli pidemia Take 1 tablet (80 mg) by mouth at bedtime. 90 tablet Active tiotropium (Spiriva HandiHaler) 18 MCG inhalation capsuleIndicati ons:Chronic obstructive pulmonary disease, unspecified COPD type ([facility]),Mild intermittent asthma without complication Place 1 capsule [...] hyperglycemia, with long-term current use of insulin ([facility]) TEST BLOOD SUGAR FIVE TIMES DAILY 200 each Active Blood Glucose Monitoring Suppl (FreeStyle [place] Lite) w/Device kitIndications: Type 2 diabetes mellitus with hyperglycemia, with long-term current use of insulin ([facility]) TEST BLOOD SUGAR FIVE TIMES DAILY DIRECTED 1 kit Active OLANZapine (ZyPREXA) 7.5 MG tabletIndicatio ns:Recurrent major depressive disorder, in remission ([facility]) TAKE 1 TABLET BY MOUTH AT BEDTIME [...] hyperglycemia, with long-term current use of insulin ([facility]) USE BEFORE TEST BLOOD SUGAR AND INSULIN 100 each 024 Active glucose 4 g chewable tabletIndicatio ns:Type 2 diabetes mellitus with hyperglycemia, with long-term current use of insulin ([facility]) Chew 4 tablets (16 g) if needed for low blood sugar. 50 tablet 024 Active glucagon (Baqsimi Two Pack) 3 MG/DOSE nasal powderIndicatio ns:Type 2 diabetes mellitus with hyperglycemia, with long-term current use of insulin ([facility]) For low blood sugar emergencies, insert 3mg [...] complication, with long-term current use of insulin ([facility]) INJECT 40 UNITS SUBCUTANEOUSLY AT BEDTIME Active glucose blood (FreeStyle Precision Freeman Test) test stripIndication s:Type 2 diabetes mellitus with hyperglycemia, with long-term current use of insulin ([facility]) TEST BLOOD SUGAR UP TO FOUR TIMES [...] be different from the original. Enrolled in [facility] DM clinic with Shabbir McmillanD, [facility] Problem Noted Date Diagnosed Date Unintentional weight [...] for OP and psychiatry services in the [place] area. clinician provided contact information for [facility] and [facility] in [place]. Dizziness 12/30/2023 Overview (12/31/2023): Pt continues to [...] as pharmacomtherapy, [facility] smoking cessation [facility], and [facility] pharmacy smoking cessation clinic Discussed USPSTF recommends [...] as pharmacomtherapy, [facility] smoking cessation group, and [facility] pharmacy smoking cessation clinic Discussed USPSTF recommends [...] as pharmacomtherapy, [facility] smoking cessation group, and [facility] pharmacy smoking cessation clinic Discussed USPSTF recommends [...] due after 07/27/25 -eye care facilitated by [facility] on 05/20/2023 -dental home is [facility], [facility] -health care proxy filed 04/07/24 Assessment & Plan (07/27/2024 2:57 PM EST): -next physical exam due after 07/27/25 -eye care facilitated by [facility] on 05/20/2023 -dental home is [facility], [facility] -health care proxy filed 04/07/24 Assessment & Plan (04/07/2024 10:24 AM EDT): -next physical exam due after 06/10/2024 -eye care facilitated by [facility] on 05/20/2023 -dental home is [facility], [facility] -health care proxy filed 04/07/24 Assessment & Plan (06/10/2023 2:19 PM EDT): -next physical exam due after 06/10/2024 -eye care facilitated by [facility] on 05/20/2023 -dental home is Anemia [...] strict ED precautions. -Referral to re-establish with [facility] placed Assessment & Plan (09/22/2022 9:32 [...] for OP and psychiatry services in the [place] area. clinician provided contact information for [facility] and [facility] in [place]. Assessment & Plan (01/08/2023 10:29 AM EDT): [...] Rx for Olanzapine 7.5mg I will email [facility] to make an appt with [...] glucose monitor. Needs sensors. She did not filler picker but will this week. Lab Results [...] is not controlled. -Pt is followed by [facility]. Lab Results Component Value Date HGBA1C 11.5 [...] admitted on 03/17/2022 for DKA (diabetic ketoacidosis) ([facility]) [E11.10];Acute cystitis without hematuria [N30.00] Results: Results [...] admitted on 03/17/2022 for DKA (diabetic ketoacidosis) ([facility]/HCC) [E11.10];Acute cystitis without hematuria [N30.00] Results: [...] Date Type Department Care Team Description 10/04/2024 Telephone [facility] [address] [place] [address] Di Hyde PharmD 10/04/2024 Orders Only GENERIC EXTERNAL DATA DEPARTMENT Provider, Generic External Data 10/03/2024 Refill [facility] [address] [place] [address] Brittnee Hanna MD Mild intermittent asthma without complication 09/21/2024 Telephone [facility] [address] [place], [place] [address] Brittnee Hanna MD 09/20/2024 Telephone [facility] [address] [facility] [place] [address] Flory Kaufman, CHAD 09/19/2024 Refill [facility] [address] [facility] [place] [address] Di Hyde, PharmD Essential hypertension 09/19/2024 Telephone [facility] [address] [facility] [place] [place] [address] Leilani Agarwal, RN Results 09/19/2024 Orders Only [facility] [address] [place] [address] Brittnee Hanna MD Hypokalemia (Primary Dx) 09/19/2024 Orders Only GENERIC EXTERNAL DATA DEPARTMENT Provider, Generic External Data 09/19/2024 Telephone [facility] [address] [facility] [place] [address] Brittnee Hanna MD Referral 09/12/2024 Refill [facility] [address] [place] [address] Brittnee Hanna MD 09/07/2024 Orders Only [facility] [place] [address] Brittnee Hanna MD Type 2 diabetes mellitus with hyperglycemia, with long-term current use of insulin (CMS/HCC) (Primary Dx); Unintentional weight loss 09/07/2024 Telephone [facility] [place] [address] Di Hyde, PharmD Appointment Request 08/31/2024 Travel 08/25/2024 Refill [facility] [place] [address] Brittnee Hanna MD Type 2 diabetes mellitus with hyperglycemia, with long-term current use of insulin (CMS/HCC); Anemia, unspecified type; Dyslipidemia 08/10/2024 Telephone [facility] [place] [address] Brittnee Hanna MD Appointment scheduling 08/05/2024 Travel 07/28/2024 Refill [facility] [place] [address] Jaquelin Chung MD Mild intermittent asthma without complication 07/28/2024 Refill [facility] [place] [address] Brittnee Hanna MD Allergic rhinitis, unspecified seasonality, unspecified trigger; Mild intermittent asthma without complication 07/27/2024 2:15 PM EST Office Visit [facility] [place] [address] Brittnee Hanna MD Type 2 diabetes mellitus with hyperglycemia, with long-term current use of insulin (CMS/HCC) (Primary Dx); Unintentional weight loss; Dyslipidemia; Neuropathy; Encounter for immunization; Coronary artery stenosis; Tobacco abuse; Other specified health status 07/27/2024 Travel 07/18/2024 Patient Outreach [facility] [address] [place] [phone] Brittnee Hanna MD Pre-visit Planning ([facility] screening was completed on 12/30/2023) 07/18/2024 Telephone [facility] [address] [place] [address] [phone] Brittnee Hanna MD Appointment Request from Last [...] Description 11/07/2024 1:00 PM EDT Office Visit [facility] OPT[facility] [address] [place] [address] Gavino, Martina, OD [address] [place] [address] Health Maintenance Due Date Last Done Comments [...] 115 mg/dL [facility] Comment:METER #: [id number] Testing performed in the Endocrinology Department [address] , [address], [facility]. 10/04/2024 10:3 3 AM EST 10/04/2024 10:39 AM EST us Generic External Data Provider LAB BLOOD ORDERAB LES Final Result Performing Organization Address [facility] Co de Phone Number [facility] [address] [place] [phone] * Albumin, Random Urine W/Creatinine (09/19/2024 10:00 AM EST) Creatinine, Urine 161.00 mg/dL [facility] Microalbumin Urine 17.0 mg/L [facility] Microalbum Creatinine Ratio Ur 10.5 <30 ug/mg cr [facility] Comment:Albumin/Creatinine R atio Reference Ranges: Normal: < 30 ug/mg creatinine Microalbuminuria: 30 - 300 ug/mg creatinineClinical Albuminuria: > 300 ug/mg creatinine Urine 09/19/2024 10:0 0 AM EST 09/19/2024 11:51 AM EST us Brittnee Hanna MD LAB URINE ORDERABLES Final Result Performing Organization Address [facility] Co de Phone Number [facility] [address] [place] [phone] * (ABNORMAL) CBC auto differential (09/19/2024 10:00 AM EST) White Blood Count 7.1 4.8 - 10.8 X10*3/uL [facility] Red Blood Count 4.14(L) 4.20 - 5.50 X10*6/uL [facility] Hemoglobin 12.1 12.0 - 16.0 g/dl [facility] Hematocrit 35.6(L) 37.0 - 47.0 % [facility] Mean Corpuscular Volume 86.0 80.0 - 98.0 fL [facility] Mean Corpuscular Hemoglobin 29.2 27.0 - 33.0 pg [facility] Mean Corpuscular HGB Conc 34.0 31.0 - 35.0 g/dl [facility] Red Cell Distribution Width 11.5 11.0 - 16.0 % [facility] Platelet Count 436(H) 160 - 400 X10*3/uL [facility] Mean Platelet Volume 10.6 9.4 - 12.3 fL [facility] Neutrophils Percent Auto 69.4 45 - 73 % [facility] Imm Gran Pct Auto 0.3 0.0 - 0.4 % [facility] Lymphocytes Percent Auto 21.7 20 - 40 % [facility] Monocytes Percent Auto 6.3 2 - 11 % [facility] Eosinophils Percent Auto 2.0 0 - 4 % [facility] Basophils Percent Auto 0.3 0 - 2 % [facility] NRBC Pct Auto 0.0 0.0 - 0.2 /100WBC [facility] Neutrophils Absolute Auto 5.0 2.0 - 8.3 x10*3/uL [facility] Imm Gran Abs Auto 0.02 0.00 - 0.03 X10*3/uL [facility] Lymphocytes Absolute Auto 1.6 1.2 - 4.9 X10*3/uL [facility] Monocytes Absolute Auto 0.5 0.1 - 1.2 X10*3/uL [facility] Eosinophils Absolute Auto 0.1 0.0 - 0.4 X10*3/uL [facility] Basophils Absolute Auto 0.0 0.0 - 0.2 X10*3/uL [facility] NRBC Abs Auto 0.000 0.0 - 0.012 X10*3/uL [facility] 09/19/2024 10:0 0 AM EST 09/19/2024 11:32 AM EST us Generic External Data Provider LAB BLOOD ORDERAB LES Final Result [facility] [address] [place] [address] [phone] * TSH (09/19/2024 10:00 AM EST) Thyroid Stimulating Hormone 0.76 0.32 - 4.0 uIU/mL [facility] Comment:TSH 3rd Generation ( [facility]) 09/19/2024 10:0 0 AM EST 09/19/2024 11:32 AM EST us Generic External Data Provider LAB BLOOD ORDERAB LES Final Result Performing Organization Address [facility] Co de Phone Number [facility] [address] [place] [phone] * (ABNORMAL) Glucose (09/19/2024 10:00 AM EST) Glucose Fasting 290(H) 60 - 99 mg/dL [facility] Comment:A fasting glucose of 126 mg/dl or greater on more than oneoccasion is considered diagnostic of diabetes. 09/19/2024 10:0 0 AM EST 09/19/2024 11:32 AM EST us Generic External Data Provider LAB BLOOD ORDERAB LES Final Result Performing Organization Address [facility] Number [facility] [address] [place] [phone] * Hepatic Function Panel (09/19/2024 10:00 AM EST) Only the most recent of2 resultswithin the time period is included. Bilirubin, Direct 0.1 0.0 - 0.5 mg/dL [facility] 09/19/2024 10:0 0 AM EST 09/19/2024 11:32 AM EST Generic External Data Provider LAB BLOOD ORDERAB LES Final Result Performing Organization Address [facility] Phone Number [facility] [address] [place] [phone] * (ABNORMAL) Lipid Panel, Standard (09/19/2024 10:00 AM EST) Only the most recent of2 resultswithin the time period is included. Triglycerides 209(H) <150 mg/dL [facility] Comment:Desirable Triglyceri de: less than 150 mg/dLBorderline High Triglyceride 150-199 mg/dLHigh Triglyceride: 200-499 mg/dLVery High Triglyceride: greater than or equal to 5OO mg/dL Cholesterol 142 <200 mg/dL [facility] Comment:Desirable Cholestero l: less than 200 mg/dLBorderline High Cholesterol: 200-239 mg/dLHigh Cholesterol: greater than 239 mg/dL LDL Cholesterol Calculated 64 <100 mg/dL [facility] Comment:Desirable LDL: less than 100 mg/dLNear Optimal/Above Optimal LDL: 110- 129 mg/dLBorderline High LDL: 130-159 mg/dLHigh LDL: 160-189 mg/dLVery High LDL: greater than or equal to 190 mg/dL HDL Cholesterol 37(L) >40 mg/dL [facility] Comment:Desirable HDL: great er than 40 mg/dL Note: This HDL assay may give artificially low results in patients with liver disease. 09/19/2024 10:0 0 AM EST 09/19/2024 11:32 AM EST us Generic External Data Provider LAB BLOOD ORDERAB LES Final Result [facility] [address], [place] [phone] * (ABNORMAL) Comprehensive Metabolic Panel (09/19/2024 10:00 AM EST) Sodium 134(L) 135 - 145 mmol/L [facility] Potassium 3.0(L) 3.3 - 5.1 mmol/L [facility] Chloride 99 96 - 108 mmol/L [facility] Carbon Dioxide 26 22 - 29 mmol/L [facility] Anion Gap 12 12 - 20 [facility] Urea Nitrogen (BUN) 18(H) 9 - 16 mg/dL [facility] Creatinine, Serum 1.23 0.5 - 1.4 mg/dL [facility] Estimated Glomerular Filt Rate 44 [facility] Comment:Chronic Kidney Disea se: Estimated GFR < 60 mL/min/1.11l1Dphqkg Kidney Disease: Estimated GFR < 15 mL/min/1.73m2 Glucose 288(H) 60 - 115 mg/dL [facility] Calcium 8.9 8.4 - 10.2 mg/dL [facility] Bilirubin, Total 0.5 0.0 - 1.0 mg/dL [facility] Aspartate Amino Transferase 23 5 - 31 U/L [facility] Alanine Aminotransferase 27 0 - 31 U/L [facility] Total Protein 7.5 6.5 - 8.0 g/dL [facility] Albumin Level 4.1 3.5 - 5.0 g/dL [facility] Alkaline Phosphatase 108 39 - 117 U/L [facility] 09/19/2024 10:0 0 AM EST 09/19/2024 11:32 AM EST us Generic External Data Provider LAB BLOOD ORDERAB LES Final Result [facility] [address] [place] [phone] * (ABNORMAL) POCT HGB A1C (07/27/2024 2:31 PM EST) Hemoglobin A1C 11.9(A) 4.0 - 6.0 % QC Media Lot # [id number] Lot# Expiration Date Blood 07/27/2024 2:31 PM EST Brittnee Hanna MD POINT OF CARE TEST ENTER/E DIT ORDERABLES Final Result * (ABNORMAL) POCT Glucose (07/27/2024 2:29 PM EST) Glucose Blood, POC 331(A) 60 - 200 mg/dL QC Media Lot # [id number] Lot# Expiration Date Blood Capillary blood specimen / Unknown 07/27/2024 2:29 PM EST us Brittnee Hanna MD POINT OF CARE TEST ENTER/E DIT ORDERABLES Final Result * BI Mammogram Screening Tomosynthesis Bilateral (07/24/2023 3:39 PM EST) Anatomical Region Laterality Modality Breast Bilateral Mammography 07/24/2023 3:39 PM EST Narrative 08/12/2023 3:43 AM EST ? [facility] ? [address] ?[place], [place] [address] ? Mammography Report ? Signed ? Patient: Cynthia Perry ?MR#: [id number] ?? [id number] ? : 1965 ?Acct:[id number] ? Age/Sex: 57 / F ?ADM Date: 07/24/23 ? Loc: HO.MAMMO ? Attending Dr: Brittnee Hanna MD ? Ordering Physician: Brittnee Hanna MD ?Results: 1N ?? egative ? Date of Service: 07/24/23 ?Follow Up: 1 Year From Orig ?? inal Mammogram ? Procedure(s): MM tomosynthesis screening BI ?? Accession Number(s): [id number] ? cc: Brittnee Hanna MD ? EXAMINATION: [...] 0340 ? DD/ 1539 ? TD/TT: ? Retail Experience Specialist: ? Procedure Note Kelle, Image - 08/12/2023 [facility] [address] [place] [address] Mammography Report Signed Patient: Cynthia Perry#: M [id number] : 1965Acct:[id number] Age/Sex: 57 / FADM Date: 07/24/23 Loc: ESTRELLITA Attending Dr: Brittnee Hanna MD Ordering Physician: Brittnee Hannaults: 1N egative Date of Service: 07/24/23Follow Up: 1 Year From Orig inal Mammogram Procedure(s): MM tomosynthesis screening BI Accession Number(s): [id number] cc: Brittnee Hanna MD EXAMINATION: MM SCREENING [...] in OV> 08/12/23 0340 DD/ 1539 TD/TT: Retail Experience Specialist: Brittnee Hanna MD IMG BI PROCEDURES Edited [...] test SurePath(TM) specimens have been determined by [employer]. The modifications have not been cleared or approved by the FDA. This assay has been validated pursuant to the CLIA regulations and is used for clinical purposes. ?? For additional information, please refer to https://education.ebindle/faq/ZOX403 (This link is being provided for information/ [...] with computer assisted technology. [facility] Input Output Clerk: SEE COMMENT [facility] Comment: RXB, CT(ASCP) CT screening location: [address] ??[address] HPV nRNA E6/E7 Not Detected Not Detected [facility] Comment: Methodology: Senior Sales Assistant-Mediated Amplification This assay detects E6/E7 viral messenger RNA (mRNA) from 14 high-risk HPV types (16,18,31,33,35,39,45,51,52,56,58,59,66,68). ? Cervical sources are required for HPV testing. If a vaginal source from a patient who has had a total hysterectomy with removal of cervix was ?? submitted, please contact the testing laboratory for alternative testing options. ?? For additional information, please refer to http://[employer].ebindle/faq/GZE937u8 (This link if provided for information/ educational [...] of this assay have been determined by [employer]. The modifications have not been cleared or approved by the FDA. This assay has been validated pursuant to the CLIA regulations and is used for clinical purposes. ?? For additional information, please refer to http://[employer].ebindle/ faq/Trichomonastma (This link is being provided for information/ educational purposes only.) ?? 05/16/2022 9:44 AM EDT Brittnee Hanna MD LAB PATHOLOGY ORDERABLES F inal Result [facility] * Pap Smear (05/16/2022 12:00 AM EDT) Swab Historical Provider LAB CYTOLOGY ORDERABLES F inal Result [facility] * Hm Colonoscopy (08/21/2020) Colonoscopy hyperplastic polyp Dr. Olivarez Result [facility] Historical Provider HEALTH MAINTENANCE Final Result * [...] Most Recently Relevant to Health Maintenance Insurance [facility] C3 Advance Directives Documents on File Type Date Recorded Patient Hand Umbrella Tipper Expl anation Advance Directives and Living Will 04/07/2024 Health Care Proxy 04/07/24 Care Teams Buffing Line Set Up Worker Relationship Specialty Start Date End Date Jacques, MD Brittnee [address] [place] [phone] PCP - General Family Medicine 08/17/18 Martina Mancia OD [address] [place] [phone] Optometry 07/26/24 Donna Sutton Banking ManagerIntelligence Director 05/06/24
[2024-10-06 14:42] LABS: Anion Gap 12 (12-20); Blood Urea Nitrogen 16 mg/dL (9-16); Calcium 9.7 mg/dL (8.4-10.2); Carbon Dioxide 28 mmol/L (22-29); Chloride 105 mmol/L (96-108); Estimated Glomerular Filt Rate 57; Glucose Random 186 mg/dL (60-115); Potassium 3.2 mmol/L (3.3-5.1); Sodium 142 mmol/L (135-145)
[2024-10-07 18:13] LABS: C Peptide 1.37 ng/mL (0.80-3.85)
[2024-10-11 20:44] LABS: Glutamic acid decarboxylase Ab <5 IU/mL (<5)
[2024-10-12 08:23] LABS: Islet Cell Antibody Screen NEGATIVE (NEGATIVE)
== END 2024-10-06 13:36 | disposition home or self-care (01) ==
LOC: HO.LAB 13:35
PROVIDERS: Physician Assistant Medical; PCP Family Medicine; Visit Provider Family Medicine
DX: E11.65 Type 2 diabetes mellitus with hyperglycemia (principal); Z79.4 Long term (current) use of insulin
CPT/HCPCS: 36415; 80048; 84681; 86341

== ENCOUNTER 2024-10-21 10:28 | Outpatient (REF) | payer MEDICAID, SELFPAY ==
--- OUTSIDE RECORDS SUMMARY | 2024-10-21 11:49 | XMS_ITS | Encounter Summary ---
Author Organization [employer] Address [address] [facility] [place] [address] Care Team Providers Care Personal Security Specialist Name Role Phone Brittnee Hanna MD Primary Care Provider [phone] Di Hyde PharmD Unavailable Martina Mancia OD Unavailable Reason for Visit * Reason Comments Med Refill Encounter Details Date Type Department Care Team (Late st Contact Info) Description 07/21/2023 Refill [facility] [address] [place], [place] [phone] Brittnee Hanna MD [address] [place], [place] [phone] Mild intermittent asthma without complication Social History [...] 11/07/2024 1:00 PM EDT Office Visit [facility] [address] [place] [address] [phone] Martina Mancia OD [address] [place] [address] documented as of this encounter Goals Goal [...] as of this encounter Care Teams Personal Security Specialist Relationship Specialty Start Date End Date Brittnee Hanna MD [address] [place] [phone] PCP - General Family Medicine 08/17/18 Di Hyde, ShabbirD [address] [place] [phone] Pharmacist Internal Medicine 01/06/23 08/31/24 Martina Mancia OD [address] [place] [phone] Optometry 07/26/24 Donna Sutton Drilling Fluids SpecialistNewspaper Carrier 05/06/24 documented as of this encounter
--- OUTSIDE RECORDS SUMMARY | 2024-10-21 11:49 | XMS_ITS | Encounter Summary ---
Author Organization [employer] Address [address] [facility] [address] 7t [place] [address] Care Team Providers Care Air Hose Coupler Name Role Phone Brittnee Hanna MD Primary Care Provider +1- [phone] Di Hyde PharmD Unavailable Martina Mancia OD Unavailable [phone] Reason for Visit * Reason Onset Date Comments triage 07/21/2022 Encounter Details Date Type Department Care Team ([facility] st Contact Info) Description 07/21/2022 Telephone [facility] MED[facility]INE [address] [place] [address] Brittnee Hanna MD 230 [place], [place] [phone] triage Social History Tobacco Use Types Packs/Day [...] and depression since losing MH services with [facility]. Per pt has not had any follow up with therapist or psychiatrist. Was supposed to have an appt on 06/15 but when called to r/s was never answered. Has been without meds. Per pt denies any SI/HI. Just increased anxiety. Pt advised that no appts in clinic tomorrow. Pt to come into [facility] tomorrow to speak with on site [facility] clinician and see if [facility] provider (advised cannot guarantee Dr. [...] accepted this outcome Please contact pt at [phone] speaks Bengali documented in this encounter Plan of Treatment Upcoming Encounters Date Type Department Care Team (Late st Contact Info) Description 11/07/2024 1:00 PM EDT Office Visit [facility] [address] [place] [address] Martina Mancia, OD 230 [place] [address] documented as of this encounter Visit Diagnoses Not on filedocumented in this encounter Care Teams Air Hose Coupler Relationship Specialty Start Date End Date Brittnee Hanna MD 230 [place], [place] [phone] PCP - General Family Medicine 08/17/18 Di Hyde PharmD [address] [place] [address] [phone] Pharmacist Internal Medicine 01/06/23 08/31/24 Martina Mancia OD [address] [place] [address] [phone] Optometry 07/26/24 Donna Sutton Machine MolderGeneral Ii Farmworker 05/06/24 documented as of this encounter
--- OUTSIDE RECORDS SUMMARY | 2024-10-21 11:49 | XMS_ITS | Encounter Summary ---
Author Organization [employer] Address [address] [facility] 7t [place] [address] Care Team Providers Care Adoption Coordinator Name Role Phone Brittnee Hanna MD Primary Care Provider +1- [phone] Martina Mancia OD Unavailable [phone] Encounter Details Date Type Department Care Team ([facility] Contact Info) Description 10/04/2024 Telephone [facility] MEDICINE 230 [place] [address] Di Hyde, PharmD 230 [place] [address] Social History Tobacco Use Types Packs/Day Years [...] Patient stated that she was seen at [facility] endocrinology office today and has follow up with their team in 2 weeks. documented in this encounter Plan of Treatment Upcoming Encounters Date Type Department Care Team (Late st Contact Info) Description 11/07/2024 1:00 PM EDT Office Visit [facility] OPTOMETRY [address] [place] [address] Gavino, Martina, OD [address] [place] [address] documented as of this encounter Goals Goal [...] documented as of this encounter Care Teams Adoption Coordinator Relationship Specialty Start Date End Date Jacques, Brittnee, MD 230 [place], [place] [phone] PCP - General Family Medicine 08/17/18 Martina Mancia OD [address] [place] [address] Optometry 07/26/24 Donna Sutton Railways AssistantMediation Commissioner 05/06/24 documented as of this encounter
--- OUTSIDE RECORDS SUMMARY | 2024-10-21 11:49 | XMS_ITS | Encounter Summary ---
Author Organization [employer] Address [address] [facility] [address] 7[address] [place] [address] Care Team Providers Care Disease Case Manager Name Role Phone Brittnee Hanna MD Primary Care Provider +- [phone] Di Hyde PharmD Unavailable Martina Mancia OD Unavailable [phone] Encounter Details Date Type Department Care Team ([facility] st Contact Info) Description 05/24/2024 Orders Only [facility] 230 [place] [address] Brittnee Hanna MD 230 [place] [address] Social History Tobacco Use Types Packs/Day Years [...] Description 11/07/2024 1:00 PM EDT Office Visit [facility] OPT[facility]RY [address] [place] [address] Martina Mancia, OD 230 [place] [address] documented as of this encounter Goals Goal [...] documented as of this encounter Care Teams Disease Case Manager Relationship Specialty Start Date End Date Brittnee Hanna MD [address] [place] [address] PCP - General Family Medicine 08/17/18 Di Hyde, PharmD 230 [place] [address] Pharmacist Internal Medicine 01/06/23 08/31/24 Martina Mancia OD [address] [place] [address] Optometry 07/26/24 Donna Sutton BinmanJava Web Architect 05/06/24 documented as of this encounter
--- OUTSIDE RECORDS SUMMARY | 2024-10-21 11:49 | XMS_ITS | Encounter Summary ---
Author Organization [employer] Address [address] [facility] [address] 7t [place] [address] Care Team Providers Care Quality Control Associate Name Role Phone Brittnee Hanna MD Primary Care Provider [phone]- [phone] Martina Mancia OD Unavailable [phone] Reason for Visit * Reason Comments Med Refill Encounter Details Date Type Department Care Team ([facility] st Contact Info) Description 10/16/2024 Refill [facility] MEDICINE [address] [place], [place] [phone] Brittnee Hanna MD 230 [place] [address] Mild intermittent asthma without complication Social History [...] 11/07/2024 1:00 PM EDT Office Visit [facility] OPTOMETRY [address] [place] [address] Martina Mancia OD 230 [place] [address] documented as of this encounter Goals Goal Patient Goal Type Associated Problems Recent Progress Patient-Stated? Author Blood Pressure < 140/90 Blood Pressure 112/58(2024 3:02 PM EST) No Piers-Gambl e, Di, PharmD Hemoglobin A1c < 7 Result Component 11.9(07/27/20 2:31 PM EST) No Piers-Gambl e, Id, PharmD documented as of this encounter Visit Diagnoses Diagnosis Mild intermittent asthma without complication documented in this encounter Additional Health Concerns Assessment Noted Time PHQ-9 Depression Total Score: 15 024 10:35 AM EDT documented as of this encounter Care Teams Quality Control Associate Relationship Specialty Start Date End Date Brittnee Hanna MD 230 [place] [address] PCP - General Family Medicine 08/17/18 Martina Mancia OD [address] [place] [address] Optometry 07/26/24 Donna Sutton Jewel InserterExecutive Assistant 05/06/24 documented as of this encounter
--- OUTSIDE RECORDS SUMMARY | 2024-10-21 11:49 | XMS_ITS | Encounter Summary ---
Author Organization [employer] Address [address] [facility] [address] 7[address] [place] [address] Care Team Providers Care Seam Press Operator Name Role Phone Brittnee Hanna MD Primary Care Provider [phone]- [phone] Martina Mancia OD Unavailable [phone] Reason for Visit * Reason Comments Med Refill Encounter Details Date Type Department Care Team ([facility] st Contact Info) Description 10/03/2024 Refill [facility] MEDICINE 230 [place], [place] [phone] Brittnee Hanna MD 230 [place] [address] Mild intermittent asthma without complication Social History [...] Description 11/07/2024 1:00 PM EDT Office Visit [facility] OPTOMETRY [address] [place] [address] Martina Mancia OD 230 [place] [address] documented as of this encounter Goals Goal [...] documented as of this encounter Care Teams Seam Press Operator Relationship Specialty Start Date End Date Brittnee Hanna MD [address] [place] [address] PCP - General Family Medicine 08/17/18 Martina Mancia OD [address] [place] [address] Optometry 07/26/24 Donna Sutton Slubber RunnerElectrical Transmission Engineer 05/06/24 documented as of this encounter
--- OUTSIDE RECORDS SUMMARY | 2024-10-21 11:49 | XMS_ITS | Encounter Summary ---
Author Organization [employer] [facility] Address [address] [facility] [address] 7t [place] [address] Care Team Providers Care Commercial Real Estate Sales Manager Name Role Phone Brittnee Hanna MD Primary Care Provider +- [phone] Di Hyde PharmD Unavailable Martina Mancia OD Unavailable [phone] Encounter Details Date Type Department Care Team ([facility] Contact Info) Description 12/17/2022 Abstract [facility] MEDICINE 230 [place] [address] Brittnee Hanna MD 230 [place] [address] Social History Tobacco Use Types Packs/Day Years [...] Upcoming Encounters Date Type Department Care Team ([facility] Contact Info) Description 11/07/2024 1:00 PM EDT Office Visit [facility] OPTOMETRY [address] [place] [address] Martina Mancia, OD 230 [place] [address] documented as of this encounter Visit Diagnoses Not on filedocumented in this encounter Additional Health Concerns Assessment Noted Time PHQ-9 Depression Total Score: 0 09/22/19 23 9:47 AM EST documented as of this encounter Care Teams Commercial Real Estate Sales Manager Relationship Specialty Start Date End Date Brittnee Hanna MD 230 [place], [place] [phone] PCP - General Family Medicine 08/17/18 Di Hyde, ShabbirD [address] [place] [address] [phone] Pharmacist Internal Medicine 01/06/23 08/31/24 Martina Mancia, JONATHON [address] [place] [address] Optometry 07/26/24 Donna Sutton State ArchivistCorduroy Brusher Operator 05/06/24 documented as of this encounter
--- OUTSIDE RECORDS SUMMARY | 2024-10-21 11:49 | XMS_ITS | Encounter Summary ---
Author Organization [employer] Address [address] [facility] [address] [place] [address] Care Team Providers Care Hairspring Truer Name Role Phone Brittnee Hanna MD Primary Care Provider [phone]- [phone] Di Hyde PharmD Unavailable Martina Mancia OD Unavailable [phone] Reason for Visit * Reason Onset Date Comments Appointment Request 07/18/2024 Encounter Details Date Type Department Care Team ([facility] st Contact Info) Description 07/18/2024 Telephone [facility] MEDICINE [address] [place] [address] Brittnee Hanna MD [address] [place], [place] [phone] Appointment Request Social History Tobacco Use Types [...] 11/07/2024 1:00 PM EDT Office Visit [facility] OPTOMETRY [address] [place] [address] Gavino, Martina, OD [address] [place] [address] documented as of this encounter Goals Goal [...] documented as of this encounter Care Teams Hairspring Truer Relationship Specialty Start Date End Date Brittnee Hanna MD 230 [place] [address] PCP - General Family Medicine 08/17/18 Di Hyde PharmD 230 [place] [address] Pharmacist Internal Medicine 01/06/23 08/31/24 Martina Mancia OD [address] [place] [address] Optometry 07/26/24 Donna Sutton Museum Service SchedulerBanana Grader 05/06/24 documented as of this encounter
--- OUTSIDE RECORDS SUMMARY | 2024-10-21 11:49 | XMS_ITS | Encounter Summary ---
Author Organization [employer] Address [address] [facility] [address] 7[address] [place] [address] Care Team Providers Care Shredded Filler Hopper Feeder Name Role Phone Brittnee Hanna MD Primary Care Provider +1- [phone] Martina Mancia OD Unavailable [phone] Encounter Details Date Type Department Care Team ([facility] Contact Info) Description 09/21/2024 Telephone [facility] MEDICINE [address] [place], [place] [phone] Brittnee Hanna MD 230 [place] [address] Social History Tobacco Use Types Packs/Day Years [...] 11/07/2024 1:00 PM EDT Office Visit [facility] OPTOMETRY [address] [place] [address] Martina Mancia, OD 230 [place] [address] documented as of this encounter Goals Goal [...] documented as of this encounter Care Teams Shredded Filler Hopper Feeder Relationship Specialty Start Date End Date Brittnee Hanna MD [address] [place] [address] PCP - General Family Medicine 08/17/18 Martina Mancia OD [address] [place] [address] Optometry 07/26/24 Donna Sutton Play LeaderSpiral Gear Generator 05/06/24 documented as of this encounter
--- OUTSIDE RECORDS SUMMARY | 2024-10-21 11:49 | XMS_ITS | Encounter Summary ---
Author Organization [employer] [facility] Address [address] 7t [place] [address] Care Team Providers Care Grommet Worker Name Role Phone Brittnee Hanna MD Primary Care Provider +- [phone] Di Hyde PharmD Unavailable Martina Mancia OD Unavailable [phone] Reason for Visit * Reason Comments Med Refill Encounter Details Date Type Department Care Team (Late st Contact Info) Description 02/18/2023 Refill [facility] MEDICINE 230 [place] [address] Brittnee Hanna MD 230 [place], [place] [phone] Type 2 diabetes mellitus with other circulatory complication, with long-term current use of insulin ([facility]) Social History Tobacco Use Types [...] 1:00 PM EDT Office Visit [facility] OPTOMETRY [address] [place] [address] Martina Mancia OD 230 [place] [address] documented as of this encounter Goals Goal Patient Goal Type Associated Problems Recent Progress Patient-Stated? Author Hemoglobin A1c < 7 Result Component 11.9( 2:31 PM EST) No Di Hyde, PharmD documented as of this encounter Visit Diagnoses Diagnosis Type 2 diabetes mellitus with other circulatory complication, with long-term current use of insulin ([facility]) documented in this encounter Additional Health Concerns Assessment Noted Time PHQ-9 Depression Total Score: 21 023 9:47 AM EDT documented as of this encounter Care Teams Grommet Worker Relationship Specialty Start Date End Date Brittnee Hanna MD 230 [place] [address] PCP - General Family Medicine 08/17/18 Di Hyde, PharmD 230 [place] [address] Pharmacist Internal Medicine 01/06/23 08/31/24 Martina Mancia OD [address] [place] [address] Optometry 07/26/24 Donna Sutton Senior Tax ManagerLead Teacher 05/06/24 documented as of this encounter
--- OUTSIDE RECORDS SUMMARY | 2024-10-21 11:49 | XMS_ITS | Encounter Summary ---
Author Organization [employer] Address [address] [facility] [address] [address] [place] [address] Care Team Providers Care Pearl Restorer Name Role Phone Brittnee Hanna MD Primary Care Provider +1- [phone] GavinoMartina OD Unavailable [phone] Reason for Visit * Reason Onset Date Comments Results 10/06/2024 Encounter Details Date Type Department Care Team ([facility] Contact Info) Description 10/06/2024 Telephone [facility] MEDICINE 230 [place] [address] Cipriano Campa MD 230 [place] [address] Results Social History Tobacco Use Types Packs/Day [...] Telephone Encounter - Leilani Agarwal RN - 10/20/2024 1:08 PM EST TC placed to pt with a full fashioned garment knitter to inform and advise that pt have labs done to recheck on potassium levels. Pt has started on the K supplementation and was advised of the importance of having the levels rechecked to make sure that they are back within normal limits. Pt states that she will have these labs drawn this afternoon at [facility]. This encounter will be forwarded to 10/21 to check andmake sure the labs are drawn. * Telephone Encounter - Leilani Agarwal RN - 10/19/2024 9:22 AM EST TC placed to pt with [facility] helmet binder #[id number] to inquire if pt had gotten the ordered Basic MetabolicPanel to recheck potassium levels. Per the pt and the pt chart the blood work has not been collected yet. This encounter will be postponed until 10/20/2024 to check on the status of this. * Telephone Encounter - Leilani Agarwal RN - 10/13/2024 3:29 PM EST TC placed to pt with a full fashioned garment knitter to inform that the pt must pick pulling machine operator the potassium chloride 20 MEQ tablet at the pharmacy today or tomorrow (10/14)) at the latest. Pt confirms that this was picked up today (10/13) and the pt advised to have blood work done five days from now to check on the potassium levels. Pt informed that the labs are in the system and can be drawn here on the first floor at the [facility]. Pt agreeable to all this information and stated understanding. RN also called [facility] pharmacy who confirmed the pt picked up the potassium supplement today. * Telephone Encounter - Zoe Ferrera RN - 10/13/2024 2:03 PM EST Per Renuka at [facility] pharmacy, pt has not picked up med. Called pt to remind her to get med today andto get labs drawn in 5 days (on 10/17/24 if take first dose today 10/13/24). Phone number not in service. Called pt's with [facility] armament mechanic Surjit #[id number], pt not with , not on HIPAA. Pt's said to call back in 15 min. * Telephone Encounter - Fauzia Prakash RN - 10/13/2024 10:17 AM EST Spoke with La in pharmacy who states klor-con still not picked up. Will check again this afternoon and if still not picked up, will contact her to remind her again. * Telephone Encounter - Zoe Ferrera RN - 10/12/2024 1:40 PM EST Telephone call to pt x3 to advise to get labs drawn. Phone number on file for pt not in service, unable to leave voicemail. Called pt's emergency contact using [facility] armament mechanic #[id number], no answer, left voicemail to call back [facility]. Called [facility] pharmacy, per Enedina, pt never picked up medication.Again called pt's , pt was available to speak, utilized [place] Hartmann as helmet binder. Advised pt again to pick potassium supplement as soon as possible, reviewed this medication is very important for her heart, reviewed to take 1 pill daily for 5 days, pt verbalized understanding. Informed pt once finished with the 5 days, to get labs drawn. Pt verbalized understanding. Stated phone number on file for her out of service until tomorrow. Will task to ensure that pt picks up meds, and then also to follow up on lab draw. * Telephone Encounter - Fauzia Prakash RN - 10/12/2024 9:28 AM EST Pt still has not completed labs. Telephone call placed x3. Number still stating, not reachable with no option for v/m. * Telephone Encounter - Fauzia Prakash RN - 10/11/2024 1:24 PM EST Telephone call x2 placed to pt to remind to get repeat labs. No answer and no option for v/m. Will retask. * Telephone Encounter - Fauzia Prakash RN - 10/11/2024 10:07 AM EST Pt has not come in for labs yet. They were due yesterday. Telephone call placed to pt. No answer and no option for v/m. Will retask to attempt again. * Telephone Encounter - Zoe Ferrera RN - 10/06/2024 2:59 PM EST Pt's potassium came back at 3.2 today 10/06/24. Was 3.0 on 09/19/24, pt was prescribed 5 days of 20meq supplement. Printed result and spoke with covering provider Dr Odonnell in office who advised: -another 5 days of Kclor 20meq -recheck labs on 10/10/24 - call pt to advise of plan. Per provider request, pended medication and BMP lab order to Dr Odonnell. Called pt using [employer] armament mechanic James #[id number] to advise of results, plan and to expect medication to be sent to pharmacy later today. Pt verbalized understanding. Will task to check that pt got labs drawn again. documented in this encounter Plan of Treatment Upcoming Encounters Date Type Department Care Team (Late st Contact Info) Description 11/07/2024 1:00 PM EDT Office Visit [facility] OPTOMETRY [address] [place] [address] Gavino, Martina, OD [address] [place] [address] Scheduled Orders Name Type Priority Associated Diagnoses Orde r Schedule Basic Metabolic Panel Lab Routine Hypokalemia Expected: 10/06/2024 (Approximate), Expires: 10/06/2025 documented as of this encounter Goals Goal Patient Goal Type Associated Problems Recent Progress Patient-Stated? Author Blood Pressure < 140/90 Blood Pressure 112/58(2024 3:02 PM EST) No Bhupendras-Di Chapman, PharmD Hemoglobin A1c < 7 Result Component 11.9(07/27/20 2:31 PM EST) No Bhupendras-GambDi andersen, PharmD documented as of this encounter Visit Diagnoses Diagnosis Hypokalemia- Primary Hypopotassemia documented in this encounter Additional Health Concerns Assessment Noted Time PHQ-9 Depression Total Score: 15 024 10:35 AM EDT documented as of this encounter Care Teams Pearl Restorer Relationship Specialty Start Date End Date Brittnee Hanna MD [address] [place] [address] PCP - General Family Medicine 08/17/18 Martina Mancia OD [address] [place] [address] Optometry 07/26/24 Donna Sutton Segment ProducerHand Tier 05/06/24 documented as of this encounter
--- OUTSIDE RECORDS SUMMARY | 2024-10-21 11:49 | XMS_ITS | Encounter Summary ---
Author Organization [employer] [facility] Address [address] [place] [address] Care Team Providers Care Contact Manager Name Role Phone Brittnee Hanna MD Primary Care Provider +- [phone] Di Hyde PharmD Unavailable Martina Mancia OD Unavailable Encounter Details Date Type Department Care Team ([facility] Contact Info) Description 09/22/2022 Abstract [facility] MEDICINE [address] [place] [address] Brittnee Hanna MD [address] [place] [address] Social History Tobacco Use Types Packs/Day Years [...] Upcoming Encounters Date Type Department Care Team ([facility] Contact Info) Description 11/07/2024 1:00 PM EDT Office Visit [facility] OPTOMETRY [address] [place], [place] [phone] Martina Mancia, OD [address] [place] [address] documented as of this encounter Procedures Procedure [...] Blood Venous blood specimen / Unknown Result [facility] Provider MD LAB BLOOD ORDERABLES Emelia l Result * Basic Metabolic Panel (06/05/2022) Creatinine 1.0 0.5 - 1.1 mg/dL Blood Venous blood specimen / Unknown Result [facility] Provider MD LAB BLOOD ORDERABLES Emelia l Result * (ABNORMAL) Lipid Panel, Standard (06/05/2022) Triglycerides 163(A) 40 - 160 mg/dL Cholesterol 209(A) 0 - 200 mg/dL HDL Cholesterol 70 35 - 70 mg/dL LDL Cholesterol 111 mg/dL Blood Venous blood specimen / Unknown Result [facility] Provider MD LAB BLOOD ORDERABLES Emelia l Result * Pap Smear (05/16/2022 12:00 AM EDT) Swab [facility] Provider LAB CYTOLOGY ORDERABLES F inal Result [facility] * Colonoscopy (08/21/2020) Colonoscopy hyperplastic polyp Dr. Olivarez [facility] Provider HEALTH MAINTENANCE Final Result * HIV-1 antibody, EIA (04/25/2019) External HIV-1 Antibody Negative Blood Venous blood specimen / Unknown Result [facility] Provider LAB BLOOD ORDERABLES Emelia l Result * Mammography (06/14/2018) Mammogram normal Anatomical Region Laterality Modality Other [facility] Provider HEALTH MAINTENANCE Final Result * Hepatitis C Antibody with Reflex to HCV, RNA, Quantitative, Real-Time PCR (02/22/2014) Blood Venous blood specimen / Unknown 02/22/2014 Result [facility] Provider LAB BLOOD ORDERABLES Emelia l Result documented in this encounter Visit Diagnoses Not on filedocumented in this encounter Additional Health Concerns Assessment Noted Time PHQ-9 Depression Total Score: 0 09/22/19 23 9:47 AM EST documented as of this encounter Care Teams Contact Manager Relationship Specialty Start Date End Date Brittnee Hanna MD [address] [place] [address] PCP - General Family Medicine 08/17/18 Di Hyde PharmD [address] [place] [phone] Pharmacist Internal Medicine 01/06/23 08/31/24 Martina Mancia OD [address] [place] [address] [phone] Optometry 07/26/24 Donna Sutton Director Of MusicHoof Trimmer 05/06/24 documented as of this encounter
--- OUTSIDE RECORDS SUMMARY | 2024-10-21 11:49 | XMS_ITS | Encounter Summary ---
Author Organization [employer] Address [address] [place] [address] Care Team Providers Care Hvac Sales Engineer Name Role Phone Brittnee Hanna MD Primary Care Provider [phone]- [phone] Di Hyde PharmD Unavailable Martina Mancia OD Unavailable Reason for Visit * Reason Comments Med Refill Encounter Details Date Type Department Care Team ([facility] Contact Info) Description 05/12/2023 Refill [facility] CHC MED & PEDS [address] [place] [address] Cipriano Campa MD [address] [place] [address] Type 2 diabetes mellitus with other circulatory complication, with long-term current use of insulin ([facility]) Social History Tobacco Use Types Packs/Day [...] Upcoming Encounters Date Type Department Care Team ([facility] Contact Info) Description 11/07/2024 1:00 PM EDT Office Visit [facility] OPTOMETRY [address] [place] [address] Martina Mancia, OD [address] [place] [address] documented as of this encounter Goals Goal Patient Goal Type Associated Problems Recent Progress Patient-Stated? Author Hemoglobin A1c < 7 Result Component 11.9( 4 2:31 PM EST) No Di Hyde, PharmD documented as of this encounter Visit Diagnoses Diagnosis Type 2 diabetes mellitus with other circulatory complication, with long-term current use of insulin ([facility]) documented in this encounter Additional Health Concerns Assessment Noted Time PHQ-9 Depression Total Score: 21 023 9:47 AM EDT documented as of this encounter Care Teams Hvac Sales Engineer Relationship Specialty Start Date End Date Brittnee Hanna MD [address] [place] [address] PCP - General Family Medicine 08/17/18 Di Hyde, PharmD [address] [place] [address] Pharmacist Internal Medicine 01/06/23 08/31/24 Martina Mancia, JONATHON [address] [place] [phone] Optometry 07/26/24 Donna Sutton Photograph [employer] Office Assistant 05/06/24 documented as of this encounter
--- OUTSIDE RECORDS SUMMARY | 2024-10-21 11:49 | XMS_ITS | Encounter Summary ---
Author Organization [email or web address] Address [address] [place] [address] Care Team Providers Care Director Product Development Name Role Phone Brittnee Hanna MD Primary Care Provider + [phone] Di Hyde PharmD Unavailable Martina Mancai OD Unavailable [phone] Encounter Details Date Type Department Care Team (Late Contact Info) Description 08/25/2022 Orders Only [facility] CHC MED & PEDS [address] [place], [place] [phone] Jeana Vital LPN Social History Tobacco Use [...] Upcoming Encounters Date Type Department Care Team ([facility] Contact Info) Description 11/07/2024 1:00 PM EDT Office Visit [facility] OPTOMETRY [address] [place] [address] Martina Mancia, OD [address] [place], [place] [phone] documented as of this encounter Procedures Procedure Name Priority Date/Time Associated Diagnosis Comments HEPATIC FUNCTION PANEL Routine 07/21/2023 12:47 PM EST documented in this encounter Results * (ABNORMAL) Hepatic Function Panel (07/21/2023 12:47 PM EST) Bilirubin, Total 0.3 0.0 - 1.0 mg/dL [facility] Bilirubin, Direct 0.1 0.0 - 0.5 mg/dL [facility] Aspartate Amino Transferase 18 5 - 31 U/L [facility] Alanine Aminotransferase 33(H) 0 - 31 U/L [facility] Total Protein 7.4 6.5 - 8.0 g/dL [facility] Albumin Level 4.3 3.5 - 5.0 g/dL [facility] Alkaline Phosphatase 142(H) 39 - 117 U/L [facility] 07/21/2023 12:4 7 PM EST 07/21/2023 3:59 PM EST us Brittnee Hanna MD LAB BLOOD ORDERABLES Final Result Performing Organization Address City/State/[facility] Co de Phone Number [facility] [address] [place] [phone] documented in this encounter Visit Diagnoses Not on filedocumented in this encounter Care Teams Director Product Development Relationship Specialty Start Date End Date Brittnee Hanna MD [address] [place] [phone] PCP - General Family Medicine 08/17/18 Di Hyde PharmD [address] [place] [phone] Pharmacist Internal Medicine 01/06/23 08/31/24 Martina Mancia OD [address] [place] [phone] Optometry 07/26/24 Donna Sutton Edge BonderPyrotechnic Assembler 05/06/24 documented as of this encounter
--- OUTSIDE RECORDS SUMMARY | 2024-10-21 11:49 | XMS_ITS | Encounter Summary ---
Author Organization [employer] Address [address] [place] [address] Care Team Providers Care Director Of Preclinical Research Name Role Phone Brittnee Hanna MD Primary Care Provider +1- [phone] Tan Mancian OD Unavailable [phone] Encounter Details Date Type Department Care Team ([facility] Contact Info) Description 10/04/2024 Orders Only GENERIC [...] 11/07/2024 1:00 PM EDT Office Visit [facility] OPTOMETRY [address] [place] [address] GavinoMartina, OD [address] [place] [address] documented as of this encounter Goals Goal [...] Whole Blood 353(HH) 60 - 115 mg/dL [facility] Comment:METER #: [id number] Testing performed in the Endocrinology Department [address] , [address], [facility]. 10/04/2024 10:3 3 AM EST 10/04/2024 10:39 AM EST us Generic External Data Provider LAB BLOOD ORDERAB LES Final Result [facility] [address] [place] [address] [phone] documented in this encounter Visit Diagnoses Not on filedocumented in this encounter Additional Health Concerns Assessment Noted Time PHQ-9 Depression Total Score: 15 024 10:35 AM EDT documented as of this encounter Care Teams Director Of Preclinical Research Relationship Specialty Start Date End Date Brittnee Hanna MD [address] [place] [address] PCP - General Family Medicine 08/17/18 Martina Mancia OD [address] [place] [phone] Optometry 07/26/24 Donna Sutton Superintendent MeasurementElectronics Design Engineer 05/06/24 documented as of this encounter
--- OUTSIDE RECORDS SUMMARY | 2024-10-21 11:49 | XMS_ITS | Encounter Summary ---
Author Organization [employer] Address [address] [place] [address] Care Team Providers Care Merchandise Flow Manager Name Role Phone Brittnee Hanna MD Primary Care Provider +- [phone] Di Hyde PharmD Unavailable Martina Mancia OD Unavailable [phone] Encounter Details Date Type Department Care Team ([facility] st Contact Info) Description 04/27/2024 Abstract [facility] MEDICINE [address] [place] [address] Brittnee Hanna MD [address] [place], [place] [phone] Social History Tobacco Use Types Packs/Day Years [...] Office Visit [facility] OPTOMETRY [address] [place] [address] GavinoTann, OD [address] [place] [address] documented as of this encounter Goals Goal [...] documented as of this encounter Care Teams Merchandise Flow Manager Relationship Specialty Start Date End Date Brittnee Hanna MD [address] [place] [address] PCP - General Family Medicine 08/17/18 Di Hyde, PharmD [address] [place] [address] Pharmacist Internal Medicine 01/06/23 08/31/24 Martina Mancia OD [address] [place] [address] Optometry 07/26/24 Donna Sutton Dock HandBank Officer 05/06/24 documented as of this encounter
--- OUTSIDE RECORDS SUMMARY | 2024-10-21 11:49 | XMS_ITS | Clinical Summary ---
Author Organization [facility] [employer] Address [address] [place] [address] Care Team Providers Care Ice Delivery Driver Name Role Phone Brittnee Hanna MD Primary Care Provider [phone] Tan Mancian OD Unavailable [phone] Allergies Active Allergy Reactions Criticality Noted Date Comments Penicillin V 08/13/2010 Other reaction(s): unspecified Penicillins Hives 03/17/2022 Shellfish-Derived Products Swelling High 0 Other reaction(s): unspecified Medications * This document contains information received from the source organization and may not represent a complete record from that organization. Continuous Blood Gluc [employer] (FreeStyle Ric 2 [place]) device Use as directed 1 each 023 Active insulin lispro (HumaLOG) 100 UNIT/ML injectionIndica tions:Type 2 diabetes mellitus with other circulatory complication, with long-term current use of insulin ([facility]) INJECT SUBCUTANEOUSLY DIRECTED PER SLIDING SCALE: BLOOD SUGAR <150 = 0U, 151-200 = 2U, 201-250 = 4U, 251-300 = 6U, 301-350 = 8U, >350 = 10U AND CALL DOCTOR 15 mL 11 024 Active Continuous Glucose Sensor (FreeStyle Ric 2 Sensor) miscIndications :Type 2 diabetes mellitus with hyperglycemia, with long-term current use of insulin ([facility]) USE DIRECTED TO TEST BLOOD SUGAR CHANGE EVERY 14 DAYS 2 each 024 Active amLODIPine (Norvasc) 5 MG tabletIndicatio ns:Essential hypertension Take 1 tablet (5 mg) by mouth Once per day. 30 tablet 024 2024 Active atorvastatin (Lipitor) 80 MG tabletIndicatio ns:Type 2 diabetes mellitus with hyperglycemia, with long-term current use of insulin ([facility]),Dysli pidemia Take 1 tablet (80 mg) by mouth at bedtime. 90 tablet Active tiotropium (Spiriva HandiHaler) 18 MCG inhalation capsuleIndicati ons:Chronic obstructive pulmonary disease, unspecified COPD type ([facility]),Mild intermittent asthma without complication Place 1 capsule [...] hyperglycemia, with long-term current use of insulin ([facility]) TEST BLOOD SUGAR FIVE TIMES DAILY 200 each 11 Active Blood Glucose Monitoring Suppl (FreeStyle Mcpherson Lite) w/Device kitIndications: Type 2 diabetes mellitus with hyperglycemia, with long-term current use of insulin ([facility]) TEST BLOOD SUGAR FIVE TIMES DAILY DIRECTED 1 kit Active OLANZapine (ZyPREXA) 7.5 MG tabletIndicatio ns:Recurrent major depressive disorder, in remission ([facility]) TAKE 1 TABLET BY MOUTH AT BEDTIME 30 tablet 11 Active aspirin (Aspirin Adult Low Strength) 81 MG EC tabletIndicatio ns:Coronary artery stenosis Take 1 tablet (81 mg) by mouth in the morning. 90 tablet 3 024 Active metoprolol succinate XL (Toprol-XL) 50 MG 24 hr tabletIndicatio ns:Essential hypertension Take 1 tablet (50 mg) by mouth in the morning. Do not crush or chew. 90 tablet 024 Active Alcohol Swabs (Alcohol Prep) 70 % padsIndications :Type 2 diabetes mellitus with hyperglycemia, with long-term current use of insulin ([facility]) USE BEFORE TEST BLOOD SUGAR AND INSULIN 100 each Active glucose 4 g chewable tabletIndicatio ns:Type 2 diabetes mellitus with hyperglycemia, with long-term current use of insulin ([facility]) Chew 4 tablets (16 g) if needed for low blood sugar. 50 tablet Active glucagon (Baqsimi Two Pack) 3 MG/DOSE nasal powderIndicatio ns:Type 2 diabetes mellitus with hyperglycemia, with long-term current use of insulin ([facility]) For low blood sugar emergencies, insert 3mg [...] complication, with long-term current use of insulin ([facility]) INJECT 40 UNITS SUBCUTANEOUSLY AT BEDTIME Active glucose blood (FreeStyle Precision Freeman Test) test stripIndication s:Type 2 diabetes mellitus with hyperglycemia, with long-term current use of insulin ([facility]) TEST BLOOD SUGAR UP TO FOUR TIMES DAILY NEEDED 100 strip Active Ferrous Sulfate (iron) 325 (65 Fe) MG tabletIndicatio ns:Anemia, unspecified type TAKE 1 TABLET BY MOUTH EVERY OTHER DAY IN THE MORNING 45 tablet Active Icosapent Ethyl (Vascepa) 1 g capsuleIndicati ons:Dyslipidemi a TAKE 2 CAPSULES BY MOUTH TWICE DAILY IN THE MORNING AND EVENING 360 capsule 11 01/09/2 025 Active acetone, urine, test stripIndication s:Type [...] mm misc Use as instructed 100 each 11 025 Active chlorthalidone (Hygroton) 25 MG tabletIndicatio ns:Essential hypertension TAKE ONE HALF TABLET BY MOUTH ONCE DAILY 45 tablet 1 025 Active Advair Diskus 250-50 MCG/ACT aerosol powderIndicatio ns:Mild intermittent asthma without complication INHALE 1 PUFF BY MOUTH TWICE DAILY IN THE MORNING AND IN THE EVENING. RINSE MOUTH AFTER USING. 60 each 5 025 Active Advair Diskus 250-50 MCG/ACT aerosol powderIndicatio ns:Mild intermittent asthma without complication INHALE 1 PUFF BY MOUTH TWICE DAILY IN THE MORNING AND IN THE EVENING RINSE MOUTH AFTER USING. 60 each 5 024 2024 Discontinued potassium chloride CR (Klor-Con M20) 20 MEQ ER tabletIndicatio ns:Hypokalemia Take 1 tablet (20 mEq) by mouth Once per day for 5 days. Do not crush or chew. 5 tablet 025 2024 potassium chloride CR (Klor-Con M20) 20 MEQ ER tablet Take 1 tablet (20 mEq) by mouth Once per day for 5 days. Do not crush or chew. 5 tablet 025 2024 Active Problems Patient Care Coordination No te Formatting of this note migh t be different from the original. Enrolled in [facility] DM clinic with Di Hyde PharmD, [facility] Problem Noted Date Diagnosed Date Unintentional weight [...] for OP and psychiatry services in the [place] area. clinician provided contact information for [facility] and [facility] in [place]. Dizziness 12/30/2023 Overview (12/31/2023): Pt continues to [...] as pharmacomtherapy, [facility], and [facility] pharmacy smoking cessation clinic Discussed USPSTF [...] as pharmacomtherapy, [facility] smoking [facility] group, and [facility] pharmacy smoking cessation clinic Discussed USPSTF [...] as pharmacomtherapy, [facility] smoking [facility], and [facility] pharmacy smoking cessation clinic Discussed USPSTF [...] due after 07/27/25 -eye care facilitated by [facility] on 05/20/2023 -dental home is [facility], [facility] -health care proxy filed 04/07/24 Assessment & Plan (07/27/2024 2:57 PM EST): -next physical exam due after 07/27/25 -eye care facilitated by [facility] on 05/20/2023 -dental home is [facility], [facility] -health care proxy filed 04/07/24 Assessment & Plan (04/07/2024 10:24 AM EDT): -next physical exam due after 06/10/2024 -eye care facilitated by [facility] on 05/20/2023 -dental home is [facility], [facility] -health care proxy filed 04/07/24 Assessment & Plan (06/10/2023 2:19 PM EDT): -next physical exam due after 06/10/2024 -eye care facilitated by [facility] on 05/20/2023 -dental home is [...] controlled -does not take meds before visits -CD referral Disorder of cardiovascular system 05/03/2014 Overview [...] strict ED precautions. -Referral to re-establish with [facility] placed Assessment & Plan (09/22/2022 9:32 [...] for OP and psychiatry services in the [place] area. clinician provided contact information for [facility] and [facility] in [place]. Assessment & Plan (01/08/2023 10:29 AM EDT): [...] services. ?? PLAN: 1. Follow up with [facility]: Not recommended for follow-up 2. Patient goal is to engage in behavioral health services. 3. Behavioral Recommendations a. Practice using a different coping skill on a daily basis b. Once services are established, attend therapy and medication management appointments c. Patient will reach out to a [facility] during next PCP appointment if needed Assessment & Plan (07/22/2022 2:55 PM EST): Most likely exacerbated by lack of meds >1m. Called pharmacy and verify med dose, sent Rx for Olanzapine 7.5mg I will email N to make an appt with Dr Quinn [...] glucose monitor. Needs sensors. She did not pepper picker but will this week. Lab Results [...] admitted on 03/17/2022 for DKA (diabetic ketoacidosis) ([facility]) [E11.10];Acute cystitis without hematuria [N30.00] Results: Results [...] admitted on 03/17/2022 for DKA (diabetic ketoacidosis) ([facility]) [E11.10];Acute cystitis without hematuria [N30.00] Results: [...] Encounters Date Type Department Care Team Description 10/16/2024 Refill [facility] [address] [facility] [address] [facility] [place] [address] Brittnee Hanna MD Mild intermittent asthma without complication 10/06/2024 Orders Only GENERIC EXTERNAL DATA DEPARTMENT Provider, Generic External Data 10/06/2024 Telephone [facility] [address] [facility] [address] [facility] [place] [address] Cipriano Campa MD Results 10/04/2024 Telephone C MEDICINE [address] [place] [address] Di Hyde PharmD 10/04/2024 Orders Only GENERIC EXTERNAL DATA DEPARTMENT Provider, Generic External Data 10/03/2024 Refill [facility] [address] [place] [address] Brittnee Hanna MD Mild intermittent asthma without complication 09/21/2024 Telephone [facility] [address] [place] [address] Brittnee Hanna MD 09/20/2024 Telephone C MEDICINE [address] [place] [address] Flory Kaufman RN 09/19/2024 Refill [facility] [address] [place] [address] Di Hyde PharmD Essential hypertension 09/19/2024 Telephone [facility] [address] [place] [address] Leilani Agarwal, RN Results 09/19/2024 Orders Only [facility] MEDICINE [address] [place] [address] Brittnee Hanna MD Hypokalemia (Primary Dx) 09/19/2024 Orders Only GENERIC EXTERNAL DATA DEPARTMENT Provider, Generic External Data 09/19/2024 Telephone [facility] MEDICINE [address] [place] [phone] Brittnee Hanna MD Referral 09/12/2024 Refill [facility] PEDS [address] [place], [place] [phone] Brittnee Hanna MD 09/07/2024 Orders Only [facility] MEDICINE [address] [place] [phone] Brittnee Hanna MD Type 2 diabetes mellitus with hyperglycemia, with long-term current use of insulin ([facility]) (Primary Dx); Unintentional weight loss 09/07/2024 Telephone [facility] MEDICINE [address] [place] [phone] Di Hyde, PharmD Appointment Request 08/31/2024 Travel 08/25/2024 Refill [facility] MEDICINE [address] [place] [phone] Brittnee Hanna MD Type 2 diabetes mellitus with hyperglycemia, with long-term current use of insulin ([facility]/HCC); Anemia, unspecified type; Dyslipidemia 08/10/2024 Telephone [facility] MEDICINE [address] [place] [phone] Brittnee Hanna MD Appointment scheduling 08/05/2024 Travel 07/28/2024 Refill [facility] MEDICINE [address] [place], [place] [phone] Jaquelin hCung MD Mild intermittent asthma without complication 07/28/2024 Refill [facility] MEDICINE [address] [place] [address] [phone] Brittnee Hanna MD Allergic rhinitis, unspecified seasonality, unspecified trigger; Mild intermittent asthma without complication 07/27/2024 2:15 PM EST Office Visit [facility] MEDICINE [address] [place] [address] [phone] Brittnee Hanna MD Type 2 diabetes mellitus with hyperglycemia, with long-term current use of insulin ([facility]) (Primary Dx); Unintentional weight loss; Dyslipidemia; Neuropathy; Encounter for immunization; Coronary artery stenosis; Tobacco abuse; Other specified health status 07/27/2024 Travel from Last 3 Months Immunizations Name Administration [...] Description 11/07/2024 1:00 PM EDT Office Visit [facility] OPTOMETRY [address] [place] [address] Gavino, Martina, OD [address] [place], [place] [phone] Health Maintenance Due Date Last Done Comments [...] Procedure Name Priority Date/Time Associated Diagnosis Comments ISLET CELL AB SCREEN W/REFL TITER Routine 10/06/2024 1:46 PM EST GLUTAMIC ACID DECARBOXYLASE 65 AB Routine 10/06/2024 1:46 PM EST C-PEPTIDE Routine 10/06/2024 1:46 PM EST BASIC METABOLIC PANEL Routine 10/06/2024 1:46 PM EST Type 2 diabetes mellitus with hyperglycemia, with long-term current use of insulin ([facility]) GLUCOSE, WHOLE BLOOD Routine 10/04/2024 10:33 AM [...] hyperglycemia, with long-term current use of insulin ([facility]) POCT GLYCATED HEMOGLOBIN, TOTAL Routine 07/27/2024 2:31 PM EST Type 2 diabetes mellitus with hyperglycemia, with long-term current use of insulin ([facility]) POCT GLUCOSE Routine 07/27/2024 2:29 PM EST Type 2 diabetes mellitus with hyperglycemia, with long-term current use of insulin ([facility]) BI MAMMOGRAM SCREENING TOMOSYNTHESIS BILATERAL Routine 07/24/2023 [...] Recently Relevant to Health Maintenance Results * Glutamic Acid Decarboxylase 65 Antibody (10/06/2024 1:46 PM EST) Glutamic acid decarboxylase Ab <5 <5 IU/mL [facility] Comment:This test was perfor med using the GAD65 WIN method,which is standardized against the Internationalreference preparation 97/550.THIS TEST WAS PERFORMED AT:[employer] [place] [address]XGHILOLALINE GEIGER MD,PHD 10/06/2024 1:46 PM EST 10/06/2024 1:46 PM EST Generic External Data Provider LAB BLOOD ORDERAB LES Final Result Performing Organization Address [facility] Co de Phone Number [facility] [address] [place] [phone] * C-Peptide (10/06/2024 1:46 PM EST) C-Peptide 1.37 0.80 - 3.85 ng/mL [facility] Comment:THIS TEST WAS PERFOR MED AT:[employer] [address] [id number] LANDERS MD 10/06/2024 1:46 PM EST 10/06/2024 1:46 PM EST Generic External Data Provider LAB BLOOD ORDERAB LES Final Result Performing Organization Address [facility]/ZIP Co de Phone Number [facility] [address] [place] [phone] * Islet Cell Antibody Screen W/Reflex to Titer (10/06/2024 1:46 PM EST) Islet Cell Antibody Screen NEGATIVE NEGATIVE [facility] Comment:This test was develo ped and its analytical performancecharacteristics have been determined by [employer].It has not been cleared or approved by FDA. This assay hasbeen validated pursuant to the CLIA regulations and is usedfor clinical purposes.THIS TEST WAS PERFORMED AT:[employer]/[id number] [place] [address]WITRXBART ABBASI MD,PHD,CRISTI Islet Cell Antibody Titer TNP [facility] 10/06/2024 1:46 PM EST 10/06/2024 1:46 PM EST us Generic External Data Provider LAB BLOOD ORDERAB LES Final Result [facility] [address] [place] [phone] * (ABNORMAL) Basic Metabolic Panel (10/06/2024 1:46 PM EST) [facility] Sodium 142 135 - 145 mmol/L [facility] Potassium 3.2(L) 3.3 - 5.1 mmol/L [facility] Chloride 105 96 - 108 mmol/L [facility] Carbon Dioxide 28 22 - 29 mmol/L [facility] Anion Gap 12 12 - 20 [facility] Urea Nitrogen (BUN) 16 9 - 16 mg/dL [facility] Creatinine, Serum 0.99 0.5 - 1.4 mg/dL [facility] Estimated Glomerular Filt Rate 57 [facility] Comment:Chronic Kidney Disea se: Estimated GFR < 60 mL/min/1.10s1Cozymq Kidney Disease: Estimated GFR < 15 mL/min/1.73m2 Glucose 186(H) 60 - 115 mg/dL [facility] Calcium 9.7 8.4 - 10.2 mg/dL [facility] Blood Venous blood specimen / Unknown 10/06/2024 1:46 PM EST 10/06/2024 1:46 PM EST us Brittnee Hanna MD LAB BLOOD ORDERABLES Final Result Performing Organization Address [facility] Co de Phone Number [facility] [address] [place] [phone] * (ABNORMAL) Glucose, Whole Blood (10/04/2024 10:33 AM EST) Glucose, Whole Blood 353(HH) 60 - 115 mg/dL [facility] Comment:METER #: [id number] Testing performed in the Endocrinology Department [address] , [address], [facility]. 10/04/2024 10:3 3 AM EST 10/04/2024 10:39 AM EST us Generic External Data Provider LAB BLOOD ORDERAB LES Final Result Performing Organization Address [facility] Phone Number [facility] [address] [place] [phone] * Albumin, Random Urine W/Creatinine (09/19/2024 10:00 AM EST) Creatinine, Urine 161.00 mg/dL [facility] Microalbumin Urine 17.0 mg/L [facility] Microalbum Creatinine Ratio Ur 10.5 <30 ug/mg cr [facility] Comment:Albumin/Creatinine R atio Reference Ranges: Normal: < 30 ug/mg creatinine Microalbuminuria: 30 - 300 ug/mg creatinineClinical Albuminuria: > 300 ug/mg creatinine Urine 09/19/2024 10:0 0 AM EST 09/19/2024 11:51 AM EST us Brittnee Hanna MD LAB URINE ORDERABLES Final Result Performing Organization Address [facility] Co de Phone Number [facility] [address] [place] [phone] * (ABNORMAL) CBC auto differential (09/19/2024 10:00 AM EST) White Blood Count 7.1 4.8 - 10.8 X10*3/uL [facility] Red Blood Count 4.14(L) 4.20 - 5.50 X10*6/uL [facility] Hemoglobin 12.1 12.0 - 16.0 g/dl [facility] Hematocrit 35.6(L) 37.0 - 47.0 % [facility] Mean Corpuscular Volume 86.0 80.0 - 98.0 fL [facility] Mean Corpuscular Hemoglobin 29.2 27.0 - 33.0 pg [facility] Mean Corpuscular HGB Conc 34.0 31.0 - 35.0 g/dl [facility] Red Cell Distribution Width 11.5 11.0 - 16.0 % [facility] Platelet Count 436(H) 160 - 400 X10*3/uL [facility] Mean Platelet Volume 10.6 9.4 - 12.3 fL [facility] Neutrophils Percent Auto 69.4 45 - 73 % [facility] Imm Gran Pct Auto 0.3 0.0 - 0.4 % [facility] Lymphocytes Percent Auto 21.7 20 - 40 % [facility] Monocytes Percent Auto 6.3 2 - 11 % [facility] Eosinophils Percent Auto 2.0 0 - 4 % [facility] Basophils Percent Auto 0.3 0 - 2 % [facility] NRBC Pct Auto 0.0 0.0 - 0.2 /100WBC [facility] Neutrophils Absolute Auto 5.0 2.0 - 8.3 x10*3/uL [facility] Imm Gran Abs Auto 0.02 0.00 - 0.03 X10*3/uL [facility] Lymphocytes Absolute Auto 1.6 1.2 - 4.9 X10*3/uL [facility] Monocytes Absolute Auto 0.5 0.1 - 1.2 X10*3/uL [facility] Eosinophils Absolute Auto 0.1 0.0 - 0.4 X10*3/uL [facility] Basophils Absolute Auto 0.0 0.0 - 0.2 X10*3/uL [facility] NRBC Abs Auto 0.000 0.0 - 0.012 X10*3/uL [facility] 09/19/2024 10:0 0 AM EST 09/19/2024 11:32 AM EST us Generic External Data Provider LAB BLOOD ORDERAB LES Final Result Performing Organization Address [facility] Co de Phone Number [facility] [address] [place] [phone] * TSH (09/19/2024 10:00 AM EST) Thyroid Stimulating Hormone 0.76 0.32 - 4.0 uIU/mL [facility] Comment:TSH 3rd Generation ( [facility]) 09/19/2024 10:0 0 AM EST 09/19/2024 11:32 AM EST us Generic External Data Provider LAB BLOOD ORDERAB LES Final Result Performing Organization Address [facility] Phone Number [facility] [address] [place] [phone] * (ABNORMAL) Glucose (09/19/2024 10:00 AM EST) Glucose Fasting 290(H) 60 - 99 mg/dL [facility] Comment:A fasting glucose of 126 mg/dl or greater on more than oneoccasion is considered diagnostic of diabetes. 09/19/2024 10:0 0 AM EST 09/19/2024 11:32 AM EST Generic External Data Provider LAB BLOOD ORDERAB LES Final Result Performing Organization Address [facility] Phone Number [facility] [address] [place] [address] [phone] * Hepatic Function Panel (09/19/2024 10:00 AM EST) Only the most recent of2 resultswithin the time period is included. Bilirubin, Direct 0.1 0.0 - 0.5 mg/dL [facility] 09/19/2024 10:0 0 AM EST 09/19/2024 11:32 AM EST Generic External Data Provider LAB BLOOD ORDERAB LES Final Result Performing Organization Address [facility] Co de Phone Number [facility] [address] [place] [phone] * (ABNORMAL) Lipid Panel, Standard (09/19/2024 10:00 AM EST) Only the most recent of2 resultswithin the time period is included. Triglycerides 209(H) <150 mg/dL [facility] Comment:Desirable Triglyceri de: less than 150 mg/dLBorderline High Triglyceride 150-199 mg/dLHigh Triglyceride: 200-499 mg/dLVery High Triglyceride: greater than or equal to 5OO mg/dL Cholesterol 142 <200 mg/dL [facility] Comment:Desirable Cholestero l: less than 200 mg/dLBorderline High Cholesterol: 200-239 mg/dLHigh Cholesterol: greater than 239 mg/dL LDL Cholesterol Calculated 64 <100 mg/dL [facility] Comment:Desirable LDL: less than 100 mg/dLNear Optimal/Above Optimal LDL: 110- 129 mg/dLBorderline High LDL: 130-159 mg/dLHigh LDL: 160-189 mg/dLVery High LDL: greater than or equal to 190 mg/dL HDL Cholesterol 37(L) >40 mg/dL [facility] Comment:Desirable HDL: great er than 40 mg/dL Note: This HDL assay may give artificially low results in patients with liver disease. 09/19/2024 10:0 0 AM EST 09/19/2024 11:32 AM EST us Generic External Data Provider LAB BLOOD ORDERAB LES Final Result Performing Organization Address [facility]/ZIP Co de Phone Number [facility] [address] [place] [phone] * (ABNORMAL) Comprehensive Metabolic Panel (09/19/2024 10:00 AM EST) Sodium 134(L) 135 - 145 mmol/L [facility] Potassium 3.0(L) 3.3 - 5.1 mmol/L [facility] Chloride 99 96 - 108 mmol/L [facility] Carbon Dioxide 26 22 - 29 mmol/L [facility] Anion Gap 12 12 - 20 [facility] Urea Nitrogen (BUN) 18(H) 9 - 16 mg/dL [facility] Creatinine, Serum 1.23 0.5 - 1.4 mg/dL [facility] Estimated Glomerular Filt Rate 44 [facility] Comment:Chronic Kidney Disea se: Estimated GFR < 60 mL/min/1.57n6Raxjkn Kidney Disease: Estimated GFR < 15 mL/min/1.73m2 Glucose 288(H) 60 - 115 mg/dL [facility] Calcium 8.9 8.4 - 10.2 mg/dL [facility] Bilirubin, Total 0.5 0.0 - 1.0 mg/dL [facility] Aspartate Amino Transferase 23 5 - 31 U/L [facility] Alanine Aminotransferase 27 0 - 31 U/L [facility] Total Protein 7.5 6.5 - 8.0 g/dL [facility] Albumin Level 4.1 3.5 - 5.0 g/dL [facility] Alkaline Phosphatase 108 39 - 117 U/L [facility] 09/19/2024 10:0 0 AM EST 09/19/2024 11:32 AM EST us Generic External Data Provider LAB BLOOD ORDERAB LES Final Result [facility] [address] [place] [phone] * (ABNORMAL) POCT HGB A1C (07/27/2024 2:31 PM EST) Hemoglobin A1C 11.9(A) 4.0 - 6.0 % [employer] Media Lot # [id number] Lot# Expiration Date [id number] Blood 07/27/2024 2:31 PM EST Brittnee Hanna MD POINT OF CARE TEST ENTER/E DIT ORDERABLES Final Result * (ABNORMAL) POCT Glucose (07/27/2024 2:29 PM EST) Glucose Blood, POC 331(A) 60 - 200 mg/dL QC Media Lot # [id number] Lot# Expiration Date [id number] Blood Capillary blood specimen / Unknown 07/27/2024 2:29 PM EST Brittnee Hanna MD POINT OF CARE TEST ENTER/E DIT ORDERABLES Final Result * BI Mammogram Screening Tomosynthesis Bilateral (07/24/2023 3:39 PM EST) Anatomical Region Laterality Modality Breast Bilateral Mammography 07/24/2023 3:39 PM EST Narrative 08/12/2023 3:43 AM EST ? [facility] [place] ? [address] ?[place] [address] ? Mammography Report ? Signed ? Patient: Bhargav Okeefe,Cynthia ?MR#: M ?? [id number] ? : 1965 ?Acct:[id number] ? Age/Sex: 57 / F ?ADM Date: 12/08/23 ? Loc: HO.MAMMO ? Attending Dr: Brittnee Hanna MD ? Ordering Physician: Brittnee Hanna MD ?Results: 1N ?? egative ? Date of Service: 07/24/23 ?Follow Up: 1 Year From Orig ?? inal Mammogram ? Procedure(s): MM tomosynthesis screening BI ?? Accession Number(s): [id number] ? cc: Brittnee Hanna MD ? EXAMINATION: [...] by Marleen Peter MD in OV> ? 08/12/23339 ? DD/ 38 ? TD/TT: ? Machine Carton Marker: ? Procedure Note Kelle, Anant - 08/12/2023 [facility] [address] [place] [address] Mammography Report Signed Patient: Cynthia PerryMR#: M [id number] : 1965Acct:[id number] Age/Sex: 57 / FADM Date: 07/24/23 Loc: HO.MAMMO Attending Dr: Brittnee Hanna MD Ordering Physician: Brittnee Hanna MDResults: 1N egative Date of Service: 07/24/23Follow Up: 1 Year From Orig inal Mammogram Procedure(s): MM tomosynthesis screening BI Accession Number(s): [id number] cc: Brittnee Hanna MD EXAMINATION: MM SCREENING [...] in OV> 08/12/23 0340 DD/ 1539 TD/TT: Machine Carton Marker: Brittnee Hanna MD IM BI PROCEDURES Edited R esult - Final [...] test SurePath(TM) specimens have been determined by [employer]. The modifications have not been cleared or approved by the FDA. This assay has been validated pursuant to the CLIA regulations and is used for clinical purposes. ?? For additional information, please refer to https://[employer]/faq/VVF669 (This link is being provided for information/ educational purposes only.) ?? COMMENT SEE COMMENT [facility] Comment: EXPLANATORY NOTE: ? The [...] been evaluated with computer assisted technology. CONVERTED [facility] Business Development Consultant: SEE COMMENT [facility] Comment: RXB, CT(ASCP) CT screening location: [address] ??[address] HPV nRNA E6/E7 Not Detected Not Detected CONVERTED [employer] Comment: Methodology: Technology Applications Teacher-Mediated Amplification This assay detects E6/E7 viral messenger RNA (mRNA) from 14 high-risk HPV types (16,18,31,33,35,39,45,51,52,56,58,59,66,68). ? Cervical sources are required for HPV testing. If a vaginal source from a patient who has had a total hysterectomy with removal of cervix was ?? submitted, please contact the testing laboratory for alternative testing options. ?? For additional information, please refer to http://[employer]/faq/CDF375h6 (This link if provided for information/ educational [...] of this assay have been determined by [employer]. The modifications have not been cleared or approved by the FDA. This assay has been validated pursuant to the CLIA regulations and is used for clinical purposes. ?? For additional information, please refer to http://education.[employer]/ faq/Trichomonastma (This link is being provided for information/ educational purposes only.) ?? 05/16/2022 9:44 AM EDT Brittnee Hanna MD LAB PATHOLOGY ORDERABLES F inal Result [facility] * Pap Smear (05/16/2022 12:00 AM EDT) Swab [facility] Provider LAB CYTOLOGY ORDERABLES F inal Result [facility]ISTORICAL LABS * Hm Colonoscopy (08/21/2020) Colonoscopy hyperplastic polyp Dr. Olivarez Historical Provider HEALTH MAINTENANCE Final Result * HIV-1 antibody, EIA (04/25/2019) External HIV-1 Antibody Negative Blood Venous blood specimen / Unknown Result [facility] Historical Provider LAB BLOOD ORDERABLES Emelia l Result * Hepatitis C Antibody with Reflex to HCV, RNA, Quantitative, Real-Time PCR (02/22/2014) Blood Venous blood specimen / Unknown 02/22/2014 Historical Provider LAB BLOOD ORDERABLES Emelia l Result from Last 3 Months or Most Recently Relevant to Health Maintenance Insurance [facility] C3 Advance Directives Documents on File Type Date Recorded 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
--- OUTSIDE RECORDS SUMMARY | 2024-10-21 11:49 | XMS_ITS | Encounter Summary ---
Author Organization [employer] Address [address] [place] [address] Care Team Providers Care Tourist Cabin Keeper Name Role Phone Brittnee Hanna MD Primary Care Provider [phone] Tan Mancian OD Unavailable [phone] Encounter Details Date Type Department Care Team ([facility] Contact Info) Description 10/06/2024 Orders Only GENERIC EXTERNAL DATA DEPARTMENT [...] 1:00 PM EDT Office Visit [facility] OPTOMETRY [address] [place], [place] [phone] GavinoMartina, OD [address] [place] [address] documented as of this encounter Goals Goal Patient Goal Type Associated Problems Recent Progress Patient-Stated? Author Blood Pressure < 140/90 Blood Pressure 112/58(2024 3:02 PM EST) No Piers-Gambl e, Di, PharmD Hemoglobin A1c < 7 Result Component 11.9(07/27/20 2:31 PM EST) No Bhupendras-Gambl Di alfaro, PharmD documented as of this encounter Procedures Procedure Name Priority Date/Time Associated Diagnosis Comments GLUTAMIC ACID DECARBOXYLASE 65 AB Routine 10/06/2024 1:46 PM EST C-PEPTIDE Routine 10/06/2024 1:46 PM EST ISLET CELL AB SCREEN W/REFL TITER Routine 10/06/2024 1:46 PM EST documented in this encounter Results * Islet Cell Antibody Screen W/Reflex to Titer (10/06/2024 1:46 PM EST) Islet Cell Antibody Screen NEGATIVE NEGATIVE [facility] Comment:This test was develo ped and its analytical performancecharacteristics have been determined by [employer].It has not been cleared or approved by FDA. This assay hasbeen validated pursuant to the CLIA regulations and is usedfor clinical purposes.THIS TEST WAS PERFORMED AT:[employer] [id number] [place] [address]NVHLEBART ABBASI MD,PHD,CRISTI Islet Cell Antibody Titer TNP [facility] 10/06/2024 1:46 PM EST 10/06/2024 1:46 PM EST Generic External Data Provider LAB BLOOD ORDERAB LES Final Result Performing Organization Address [facility] Co de Phone Number [facility] [address] [place] [phone] * Glutamic Acid Decarboxylase 65 Antibody (10/06/2024 1:46 PM EST) Glutamic acid decarboxylase Ab <5 <5 IU/mL [facility] Comment:This test was perfor med using the GAD65 WIN method,which is standardized against the Internationalreference preparation 97/550.THIS TEST WAS PERFORMED AT:[employer] [id number] [place] [address]OZFQBHNALINE GEIGER MD,PHD 10/06/2024 1:46 PM EST 10/06/2024 1:46 PM EST Generic External Data Provider LAB BLOOD ORDERAB LES Final Result Performing Organization Address [facility] [[email or web address]] de Phone Number [facility] [address] [place] [phone] * C-Peptide (10/06/2024 1:46 PM EST) C-Peptide 1.37 0.80 - 3.85 ng/mL [facility] Comment:THIS TEST WAS PERFOR MED AT:[employer] [address] [address]OLYQOVISH LANDERS MD 10/06/2024 1:46 PM EST 10/06/2024 1:46 PM EST us Generic External Data Provider LAB BLOOD ORDERAB LES Final Result [facility] [address] [place] [phone] [phone] documented in this encounter Visit Diagnoses Not on filedocumented in this encounter Additional Health Concerns Assessment Noted Time PHQ-9 Depression Total Score: 15 024 10:35 AM EDT documented as of this encounter Care Teams Tourist Cabin Keeper Relationship Specialty Start Date End Date Brittnee Hanna MD [address] [place] [address] PCP - General Family Medicine 08/17/18 Martina Mancia OD [address] [place] [address] Optometry 07/26/24 Donna Sutton Pumper HelperRetail Coverage Merchandiser Lead 05/06/24 documented as of this encounter
[2024-10-21 12:55] LABS: Anion Gap 13 (12-20); Blood Urea Nitrogen 18 mg/dL (9-16); Calcium 10.3 mg/dL (8.4-10.2); Carbon Dioxide 27 mmol/L (22-29); Chloride 97 mmol/L (96-108); Estimated Glomerular Filt Rate 41; Glucose Random 465 mg/dL (60-115); Potassium 4.2 mmol/L (3.3-5.1); Sodium 133 mmol/L (135-145)
== END 2024-10-21 10:29 | disposition home or self-care (01) ==
LOC: HO.HHCL 10:28
PROVIDERS: Visit Provider Internal Medicine
DX: E87.6 Hypokalemia (principal)
CPT/HCPCS: 36415; 80048

== ENCOUNTER 2024-11-01 14:22 | Outpatient (AMB) | payer MEDICAID, SELFPAY ==
--- NOTE | 2024-11-01 14:29 | A.OFFVIS_ITS ---
Vital Signs 11/01/24 14:35 Height 5 ft 2 in Weight 121 lb 14.65 oz BMI 22.3 BP 110/72 Blood Pressure Location Rt brachial Position Sitting Pulse 85 Pulse Source Pulse Oximeter Intake Visit Reasons: T2DM Intake Note: Patient present today to follow up on Type 2 Diabetes Mellitus. Last Diabetic Eye exam: Has an appointment 11/10/24 Last Podiatry Visit: Does not see a Strike Plate Attacher Random Glucose: 241 mg/dl HgA1C: 12.7% 10/04/2024 Development Intern Required: Yes Development Intern Language: Sprinkler Fitter Helper Services: Development Intern Present Development Intern Name: Jermaine [id number] Information Interpreted: non-clinical & clinical Accompanied by: Self / Same As Patient Allergies shellfish derived [SHELLFISH DERIVED] Allergy (Severe, Verified 11/01/24 14:36) Swelling Penicillins Allergy (Mild, Verified 11/01/24 14:36) UNKNOWN - RXN CHILD naproxen [NAPROXEN] Allergy (Unknown, Verified 11/01/24 14:36) CAN'T TAKE PER HER RATE SUPERVISOR seasonal allergies Allergy (Mild, Uncoded 11/01/24 14:36) Itchy Eyes Medication List - Last Reconciled 11/01/24 by GEMA Mackey acetaminophen 500 mg PO Q6H PRN albuterol sulfate 90 mcg/actuation (ProAir HFA) 2 puffs inhalation Q4-6H PRN amlodipine 5 mg PO QAM aripiprazole 2 mg PO BEDTIME aspirin 81 mg PO DAILY atorvastatin 80 mg PO QPM bismuth subsalicylate 2 tabs PO QID blood sugar diagnostic (FreeStyle Precision Freeman Strips) As directed blood-glucose meter (FreeStyle Granby Lite kit) As directed blood-glucose meter,continuous (FreeStyle Ric 3 Lak[place]) Use daily to monitor blood glucose levels continuously. blood-glucose sensor (FreeStyle Ric 3 Sensor device) apply new sensor every 14 days dextrose (TRUEplus Glucose) 15 grams (32 mL) PO Q15M PRN doxepin 10 mg PO BEDTIME dulaglutide (Trulicity) 0.75 mg (0.5 mL) subcut QWEEK ferrous sulfate (FeroSul) 325 mg PO Q OTHER DAY flash glucose sensor (FreeStyle Ric 2 Sensor kit) As directed fluticasone propion-salmeterol 250-50 mcg/dose (Advair Diskus) 1 puff inhalation BID gabapentin 100 mg PO BID ibuprofen 600 mg PO TID PRN insulin glargine (Lantus Solostar U-100 Insulin) 36 units subcut BEDTIME insulin lispro subcut TIDWMEAL isosorbide mononitrate ER 30 mg PO DAILY lancets (TRUEplus Lancets) As directed lisinopril 20 mg PO DAILY loratadine 1 tab PO QAM metoprolol succinate ER 1 tab PO QAM olanzapine 7.5 mg PO BEDTIME pantoprazole 20 mg PO BID 2 weeks pen needle, diabetic (Pentips Pen Needle) As directed prazosin 1 mg PO BEDTIME sertraline 25 mg PO QAM tiotropium bromide (Spiriva with HandiHaler) 1 cap inhalation DAILY HPI Comments Details: This is a 59-year-old female with a past medical history of type 2 diabetes, depression, CKD stage 3, asthma-COPD, CAD (STEMI 04/15/2014 requiring PCI with JENISE to proximal LAD), decreased LVEF, gastritis, dizziness and falls and tobacco use presenting for an initial consult for diabetic management. Lithuanian video bookbinder apprentice used. She was diagnosed with type 2 diabetes 17 years ago. Family history of Type I: none Family history of Type 2: parents History of DKA - admitted 03/17/2022 for DKA in the setting of acute cystitis. Reviewed Ric 2 download CGM active 57% Average glucose 319 GMI 10.9% Glucose variability 28.2% Very high 77% High 14% Target range 9% 0% hypoglycemia. There is a pattern of hyperglycemia throughout the 24 hour period. Hemoglobin a1c today 10/04/24 is 12.7%. Current medication regimen: Lantus 36 nightly, insulin lispro 14 before meals (eats 3 meals daily, and she injects insulin before she eats) She did not adjust her insulin regimen per instructions after the last appointment. I prescribed Trulicity 0.75 mg, but she says the pharmacy did not receive the prescription. Past medications: Patient denies Compliance issues: patient denies Diet: Breakfast-oatmeal, water apple or banana for snack Lunch-tuna sandwich, water Dinner-potato, plantains, fish, chicken, pasta or rice Snacks/desserts:none No alcohol, soda or juice Hypoglycemia symptoms: rarely, treats with apple juice Hyperglycemia symptoms: tired, dry mouth, polydipsia, polyuria Eye exam: October 2024 Microvascular complications: neuropathy, nephropathy, no known retinopathy Macrovascular complications: Coronary artery disease Hypertension: Treated with lisinopril, isosorbide mononitrate, metoprolol, amlodipine. Hyperlipidemia: treated with atorvastatin ROS: Constitutional: + weight loss in the last several months, and she has discussed it with her PCP and been referred to Gastroenterology, denies fevers, chills or night sweats. Eyes: Denies vision changes Respiratory: No shortness of breath, cough or sputum production. Cardiovascular: No chest pain, chest pressure or chest discomfort. No palpitations or pedal edema. Gastrointestinal: Denies nausea, vomiting, diarrhea, abdominal pain, acid reflux. Denies constipation. Neurologic: No headache or dizziness. She endorses tingling pain in her toes. It comes and goes. She is on gabapentin. Endocrine: See HPI Physical exam: Constitutional: Alert, in no distress. Eyes: Pupils are equal, round and reactive to light. Neck: Supple, Full range of motion. No lymphadenopathy. No palpable thyroid masses. Respiratory: Clear to auscultation. Cardiovascular: S1 S2 regular. No murmurs. No carotid bruits. Right foot: Warm and well perfused. No clubbing, cyanosis or edema. Palpable DP pulse. No open wounds. Left foot: Warm and well perfused. No clubbing, cyanosis or edema. Palpable DP pulse. No open wounds. [facility] Medical History (Updated 10/04/24 @ 10:38 by GEMA Mackey) Type II diabetes with ad terminal makeup operator use of insulin Symptomatic anemia GI bleed Diabetes Anxiety Depression Asthma History of heart attack CAD (coronary artery disease) Hypercholesteremia HTN (hypertension) Surgical History Stented coronary artery Hx of colonoscopy (04/11/14) Family History Father Diabetes Hypercholesteremia HTN (hypertension) Mother HTN (hypertension) Diabetes Hypercholesteremia Brother HTN (hypertension) Diabetes Social History Household Members: None Housing: House Do you presently have visiting nurse or other home services: Yes (INTERNAL COMMUNICATIONS WRITER) Alcohol intake: current Alcohol intake frequency: does not drink Patient Tobacco Use Status: Former Tobacco user service: No Current occupational status: disabled Physical Exam Vital Signs: Last Vital Signs Pulse 85 11/01/24 14:35 BP 110/72 11/01/24 14:35 BMI result Body Mass Index 22.3 Results Reviewed Results Reviewed: Laboratory Last Values Glucose (Clinic) 241 mg/dL (60-115) H 11/01/24 14:44 Laboratory Tests 01/07/22 06/18/24 09/19/24 13:22 12:51 10:00 Creatinine 0.94 1.23 Estimated GFR > 60 44 B-Natriuretic Peptide 128 H Triglycerides 206 H Cholesterol 141 LDL Cholesterol, Calc 65 HDL Cholesterol 35 L TSH 0.76 Urine Creatinine 161.00 Urine Microalbumin 17.0 Microalb/Creat Ratio 10.5 Laboratory Tests 10/06/24 13:46 C-Peptide 1.37 Islet Cell Ab Screen NEGATIVE JEREMIAS Antibody <5 Assessment & Plan Assessment & Plan (1) Type II diabetes with chcf use of insulin: Code(s): E11.9 - Type 2 diabetes mellitus without complications; Z79.4 - FCI (current) use of insulin Category: Medical Plan In summary this is a 59-year-old diabetic female with poor glycemic control on basal bolus insulin. Advised patient to bring her CGM to all appointments so we can review data and adjust her medications. It is medically necessary to change her to the Ric 3 which is more accurate and provides continuous glucose readings. Ric 2 is being discontinued. Increase Lantus from 36 to 42 units nightly. If fasting blood sugars in the morning are still over 180, increase to 46 units after 3 days. Increase insulin lispro to 18 units before meals. Start Trulicity 0.75 mg weekly. New prescription sent to pharmacy. I advised her to call the office if they do not dispense it. Addition of SGLT2 considered, but currently blood sugars are quite high, and this would put her at increased risk of genitourinary infections. If you experience low blood sugar, treat this by eating a chewable fruit candy like skittles or jelly beans (about 8 pieces), 4 ounces (1/2 cup) of fruit juice (not diet), 1 tablespoon of honey or 4 glucose tablets or a 15 g glucose gel packet. If your blood sugar is under 55, take double the amount of one of the above. Recheck your blood sugar in 15 minutes. I prescribed glucose gel since she is edentulate. Patient should not drive if she does not have a reliable way to check her blood sugar or has symptoms of hypoglycemia. Discussed pathophysiology of Type II Diabetes Mellitus with the patient in detail.? I explained the chcf risks and complications associated with uncontrolled diabetes including nephropathy, neuropathy, peripheral vascular disease, retinopathy, increased risk of heart disease and stroke.? She was referred to the oncologist and clock repair technician. Follow up in 3 weeks for type 2 diabetes. Medications: New blood-glucose sensor (FreeStyle Ric 3 Sensor device) apply new sensor every 14 days 2 ea 11RF GEMA Mackey E11.9 - Type 2 diabetes mellitus without complications, Z79.4 - terminal superintendent (current) use of insulin blood-glucose meter,continuous (FreeStyle Ric 3 [place]) Use daily to monitor blood glucose levels continuously. 1 ea 0RF GEMA Mackey E11.9 - Type 2 diabetes mellitus without complications, Z79.4 - terminal superintendent (current) use of insulin Changed From insulin glargine (Lantus Solostar U-100 Insulin) 10 units (0.1 mL) subcut BEDTIME 0 mL 0RF To insulin glargine (Lantus Solostar U-100 Insulin) 36 units subcut BEDTIME GEMA Early Refilled dulaglutide (Trulicity) 0.75 mg (0.5 mL) subcut QWEEK 2 mL 0RF GEMA Mackey Patient Instructions: Increase Lantus from 36 to 42 units nightly. If fasting blood sugars in the morning are still over 180, increase to 46 units after 3 days. Increase insulin lispro to 18 units before meals. Start Trulicity 0.75 mg weekly. If you experience low blood sugar, treat this by eating a chewable fruit candy like skittles or jelly beans (about 8 pieces), 4 ounces (1/2 cup) of fruit juice (not diet), 1 tablespoon of honey or 4 glucose tablets. If your blood sugar is under 55, take double the amount of one of the above. Recheck your blood sugar in 15 minutes. Aumente la dosis de Lantus de 36 a 42 unidades cada noche. Si la glucemia en ayunas por la ma?ryley sigue siendo superior a 180, aumente a 46 unidades despu?s de 3 d?as. Aumente la insulina lispro a 18 unidades antes de las comidas. Comience con Trulicity 0.75 mg semanalmente. Si experimenta niveles bajos de az?car, tr?telo con un caramelo masticable de fruta freddy Skittles o Jelly Beans (aproximadamente 8 piezas), 113 ml (1/2 taza) de jugo de fruta (no diet?yancy), 1 cucharada de miel o 4 tabletas de glucosa. Si campbell glucemia es inferior a 55, tome el doble de la dosis de moreno de los medicamentos mencionados. Vuelva a medir campbell glucemia en 15 minutos. Coding Level of Care Code Est Pt Level 4 (33451) Complex EM visit Add On G2211 Diagnoses Type II diabetes with ad terminal makeup operator use of insulin E11.9; Z79.4
[2024-11-01 14:35] VITALS: BP 110/72; PULSE 85; BMI 22.3
[2024-11-01 14:49] LABS: Glucose, Whole Blood 241 mg/dL (60-115)
--- OUTSIDE RECORDS SUMMARY | 2024-11-01 17:09 | XMS_ITS | Encounter Summary ---
Author Organization [facility] [facility] Address [address] [place] [address] Care Team Providers Care Manager Of Change Name Role Phone Brittnee Hanna MD Primary Care Provider [phone] Di Hyde PharmD Unavailable Martina Mancia OD Unavailable [phone] Encounter Details Date Type Department Care Team (Late Contact Info) Description 08/25/2022 Orders Only [facility]EDS [address] [place], [place] [phone] Jeana Vital LPN Social History Tobacco Use [...] Upcoming Encounters Date Type Department Care Team ([facility] Contact Info) Description 11/07/2024 1:00 PM EDT Office Visit [facility] OPTOMETRY [address] [place] [address] Martina Mancia, OD [address] [place], [place] [phone] documented as of this encounter Procedures Procedure Name Priority Date/Time Associated Diagnosis Comments HEPATIC FUNCTION PANEL Routine 07/21/2023 12:47 PM EST documented in this encounter Results * (ABNORMAL) Hepatic Function Panel (07/21/2023 12:47 PM EST) Bilirubin, Total 0.3 0.0 - 1.0 mg/dL [facility] Bilirubin, Direct 0.1 0.0 - 0.5 mg/dL [facility] Aspartate Amino Transferase 18 5 - 31 U/L [facility] Alanine Aminotransferase 33(H) 0 - 31 U/L [facility] Total Protein 7.4 6.5 - 8.0 g/dL [facility] Albumin Level 4.3 3.5 - 5.0 g/dL [facility] Alkaline Phosphatase 142(H) 39 - 117 U/L [facility] 07/21/2023 12:4 7 PM EST 07/21/2023 3:59 PM EST us Brittnee Hanna MD LAB BLOOD ORDERABLES Final Result Performing Organization Address City/State/[facility] Co de Phone Number [facility] [address] [place] [phone] documented in this encounter Visit Diagnoses Not on filedocumented in this encounter Care Teams Manager Of Change Relationship Specialty Start Date End Date Brittnee Hanna MD [address] [place] [phone] PCP - General Family Medicine 08/17/18 Di Hyde PharmD [address] [place] [phone] Pharmacist Internal Medicine 01/06/23 08/31/24 Martina Mancia OD [address] [place] [address] Optometry 07/26/24 Donna Sutton Wound Care TechnicianPreventive Maintenance Engineer 05/06/24 documented as of this encounter
--- OUTSIDE RECORDS SUMMARY | 2024-11-01 17:09 | XMS_ITS | Encounter Summary ---
Author Organization [employer] [facility] [employer] Address [address] [place] [address] Care Team Providers Care Spinning Room Worker Name Role Phone Brittnee Hanna MD Primary Care Provider [phone] Martina Mancia OD Unavailable [phone] Encounter Details Date Type Department Care Team ([facility] Contact Info) Description 10/04/2024 Telephone [facility] MEDICINE [address] [place] [address] iD Hyde, PharmD [address] [place] [address] Social History Tobacco Use Types Packs/Day Years [...] Patient stated that she was seen at [facility] [place] today and has follow up with their team in 2 weeks. documented in this encounter Plan of Treatment Upcoming Encounters Date Type Department Care Team (Late st Contact Info) Description 11/07/2024 1:00 PM EDT Office Visit [facility] OPTOMETRY [address] [place] [address] Gavino, Martina, OD [address] [place] [address] documented as of this encounter Goals Goal [...] documented as of this encounter Care Teams Spinning Room Worker Relationship Specialty Start Date End Date [place], Brittnee, MD [address] [place], [place] [phone] PCP - General Family Medicine 08/17/18 Martina Mancia OD [address] [place] [address] Optometry 07/26/24 Donna Sutton Video Editing InternSeasonal Recruiter 05/06/24 documented as of this encounter
--- OUTSIDE RECORDS SUMMARY | 2024-11-01 17:09 | XMS_ITS | Encounter Summary ---
Author Organization [employer] [facility] Address [address] [facility] [address] Floor [address] Care Team Providers Care Virtual Assistant For Advertisers Name Role Phone Brittnee Hanna MD Primary Care Provider +- [phone] Di Hyde PharmD Unavailable [phone] Martina Mancia OD Unavailable [phone] Encounter Details Date Type Department Care Team ([facility] Contact Info) Description 12/17/[address] [facility] MEDICINE [address] [place] [address] Brittnee Hanna MD 230 [place] [address] Social History Tobacco Use Types Packs/Day Years [...] Upcoming Encounters Date Type Department Care Team ([facility] Contact Info) Description 11/07/2024 1:00 PM EDT Office Visit [facility] OPTOMETRY [address] [place] [address] Martina Mancia, OD [address] [place] [address] documented as of this encounter Visit Diagnoses Not on filedocumented in this encounter Additional Health Concerns Assessment Noted Time PHQ-9 Depression Total Score: 0 09/22/19 23 9:47 AM EST documented as of this encounter Care Teams Virtual Assistant For Advertisers Relationship Specialty Start Date End Date Brittnee Hanna MD [address] [place], [place] [phone] PCP - General Family Medicine 08/17/18 Di Hyde, ShabbirD [address] [place] [address] [phone] Pharmacist Internal Medicine 01/06/23 08/31/24 Martina Mancia, JONATHON [address] [place] [address] Optometry 07/26/24 Donna Sutton Principal Accounts ClerkDirector Of Mechanical Engineering 05/06/24 documented as of this encounter
--- OUTSIDE RECORDS SUMMARY | 2024-11-01 17:09 | XMS_ITS | Encounter Summary ---
Author Organization [employer] Address [address] [facility] [address] 7[address] [place] [address] Care Team Providers Care Unstacker Name Role Phone Brittnee Hanna MD Primary Care Provider [phone] GavinoMartina OD Unavailable [phone] Reason for Visit * Reason Onset Date Comments Results 10/06/2024 Encounter Details Date Type Department Care Team ([facility] Contact Info) Description 10/06/2024 Telephone [facility] MEDICINE [address] [place] [address] Cipriano Campa MD [address] [place] [address] Results Social History Tobacco Use Types Packs/Day [...] Miscellaneous Notes * Telephone Encounter - Zoe Fuentes RN - 10/21/2024 1:13 PM EST Pt completed labs, potassium now 4.2 WNL. Critical glucose addressed on other encounter dated 10/21/24. * Telephone Encounter - Leilani Agarwal RN - 10/20/2024 1:08 PM EST TC placed to pt with a wrapper hand to inform and advise that pt have labs done to recheck on potassium levels. Pt has started on the K supplementation and was advised of the importance of having the levels rechecked to make sure that they are back within normal limits. Pt states that she will have these labs drawn this afternoon at [facility]. This encounter will be forwarded to 10/21 to check andmake sure the labs are drawn. * Telephone Encounter - Leilani Agarwal RN - 10/19/2024 9:22 AM EST TC placed to pt with [facility] logistics planner #[id number] to inquire if pt had gotten the ordered Basic MetabolicPanel to recheck potassium levels. Per the pt and the pt chart the blood work has not been collected yet. This encounter will be postponed until 10/20/2024 to check on the status of this. * Telephone Encounter - Leilani Agarwal RN - 10/13/2024 3:29 PM EST TC placed to pt with a wrapper hand to inform that the pt must warp picker the potassium chloride 20 MEQ tablet at [...] here on the first floor at the [facility]. Pt agreeable to all this information and stated understanding. RN also called [facility] pharmacy who confirmed the pt picked up the potassium supplement today. * Telephone Encounter - Zoe Fuentes RN - 10/13/2024 2:03 PM EST Per Renuka at [facility] pharmacy, pt has not picked up med. Called pt to remind her to get med today andto get labs drawn in 5 days (on 10/17/24 if take first dose today 10/13/24). Phone number not in service. Called pt's with [facility] nurse Surjit #[id number], pt not with , not on HIPAA. Pt's said to call back in 15 min. * Telephone Encounter - Fauzia Prakash RN - 10/13/2024 10:17 AM EST Spoke with La in pharmacy who states klor-con still not picked up. Will check again this afternoon and if still not picked up, will contact her to remind her again. * Telephone Encounter - Zoe Fuentes RN - 10/12/2024 1:40 PM EST Telephone call to pt x3 to advise to get labs drawn. Phone number on file for pt not in service, unable to leave voicemail. Called pt's emergency contact using [facility] nurse #[id number], no answer, left voicemail to call back [facility]. Called [facility] pharmacy, per Enedina, pt never picked up medication.Again called pt's , pt was available to speak, utilized [place] [facility] as logistics planner. Advised pt again to pick potassium supplement [...] attempt again. * Telephone Encounter - Zoe Fuentes RN - 10/06/2024 2:59 PM EST Pt's [...] order to Dr Odonnell. Called pt using [employer] nurse James #[id number] to advise of results, plan and to expect medication to be sent to pharmacy later today. Pt verbalized understanding. Will task to check that pt got labs drawn again. documented in this encounter Plan of Treatment Upcoming Encounters Date Type Department Care Team (Late st Contact Info) Description 11/07/2024 1:00 PM EDT Office Visit [facility] OPTOMETRY [address] [place] [address] Martina Mancia, OD [address] [place] [address] documented as of this encounter Goals Goal Patient Goal Type Associated Problems Recent Progress Patient-Stated? Author Blood Pressure < 140/90 Blood Pressure 112/58(2024 3:02 PM EST) No BhupendrasiD Meade, PharmD Hemoglobin A1c < 7 Result Component 11.9(07/27/20 2:31 PM EST) No BhupendrasDi Meade, PharmD documented as of this encounter Procedures Procedure Name Priority Date/Time Associated Diagnosis Comments BASIC METABOLIC PANEL Routine 10/21/2024 10:30 AM EST Hypokalemia documented in this encounter Results * (ABNORMAL) Basic Metabolic Panel (10/21/2024 10:30 AM EST) Sodium 133(L) 135 - 145 mmol/L [facility] Potassium 4.2 3.3 - 5.1 mmol/L [facility] Chloride 97 96 - 108 mmol/L [facility] Carbon Dioxide 27 22 - 29 mmol/L [facility] Anion Gap 13 12 - 20 [facility] Urea Nitrogen (BUN) 18(H) 9 - 16 mg/dL [facility] Creatinine, Serum 1.31 0.5 - 1.4 mg/dL [facility] Estimated Glomerular Filt Rate 41 [facility] Comment:Chronic Kidney Disea se: Estimated GFR < 60 mL/min/[id number] Kidney Disease: Estimated GFR < 15 mL/min/1.73m2 Glucose 465(HH) 60 - 115 mg/dL [facility] Comment:Critical value for t est(s): GLUR Results called to amado back by: SETH Espinal RN Person calling: ALEXI Date:10/21/2024 Time:12:50 Calcium 10.3(H) 8.4 - 10.2 mg/dL [facility] Blood Venous blood specimen / Unknown 10/21/2024 10:30 AM EST 10/21/2024 11:30 AM EST us Cipriano Ramirez MD LAB BLOOD ORDERABLES Final Result [facility] [address] [place] [address] [phone] documented in this encounter Visit Diagnoses Diagnosis Hypokalemia- Primary Hypopotassemia documented in this encounter Additional Health Concerns Assessment Noted Time PHQ-9 Depression Total Score: 15 08/2 024 10:35 AM EDT documented as of this encounter Care Teams Unstacker Relationship Specialty Start Date End Date Brittnee Hanna MD [address] [place] [address] PCP - General Family Medicine 08/17/18 Martina Mancia OD [address] [place] [address] Optometry 07/26/24 Donna Sutton Suture GaugerUltrasound Applications Specialist 05/06/24 documented as of this encounter
--- OUTSIDE RECORDS SUMMARY | 2024-11-01 17:09 | XMS_ITS | Encounter Summary ---
Author Organization [employer] Address [address] [facility] [address] [facility] [address] 7t [place] [address] Care Team Providers Care Powder Shoveler Name Role Phone Brittnee Hanna MD Primary Care Provider [phone]- [phone] Martina Mancia OD Unavailable [phone] Reason for Visit * Reason Comments Med Refill Encounter Details Date Type Department Care Team ([facility] st Contact Info) Description 10/03/2024 Refill [facility] MEDICINE [address] [place], [place] [phone] Brittnee Hanna MD [address] [place] [address] Mild intermittent asthma without complication Social History [...] Office Visit [facility] OPTOMETRY [address] [place] [address] Martina Mancia OD [address] [place] [address] documented as of this encounter Goals Goal [...] documented as of this encounter Care Teams Powder Shoveler Relationship Specialty Start Date End Date Brittnee Hanna MD [address] [place] [address] PCP - General Family Medicine 08/17/18 Martina Mancia OD [address] [place] [address] Optometry 07/26/24 Donna Sutton Laborer Turkey FarmCfo 05/06/24 documented as of this encounter
--- OUTSIDE RECORDS SUMMARY | 2024-11-01 17:09 | XMS_ITS | Encounter Summary ---
Author Organization [employer] Address [address] [facility] [address] 7t [place] [address] Care Team Providers Care Sheep Farm Manager Name Role Phone Brittnee Hanna MD Primary Care Provider [phone]- [phone] Tan Mancian OD Unavailable [phone] Encounter Details Date Type Department Care Team ([facility] Contact Info) Description 11/01/2024 Orders Only GENERIC EXTERNAL DATA DEPARTMENT Provider, [...] Description 11/07/2024 1:00 PM EDT Office Visit [facility] OPTOMETRY [address] [place] [address] GavinoMartina, OD [address] [place] [address] documented as of this encounter Goals Goal Patient Goal Type Associated Problems Recent Progress Patient-Stated? Author Blood Pressure < 140/90 Blood Pressure 112/58(2024 3:02 PM EST) No Bhupendras-Di Chapman, PharmD Hemoglobin A1c < 7 Result Component 11.9(07/27/20 2:31 PM EST) No Di Meyers, PharmD documented as of this encounter Procedures Procedure Name Priority Date/Time Associated Diagnosis Comments GLUCOSE, WHOLE BLOOD Routine 11/01/2024 2:44 PM EDT documented in this encounter Results * (ABNORMAL) Glucose, Whole Blood (11/01/2024 2:44 PM EDT) Glucose, Whole Blood 241(H) 60 - 115 mg/dL [facility] Comment:METER #: [id number] 5Testing performed in the Endocrinology Department [address] , [address], [facility]. 11/01/2024 2:44 PM EDT 11/01/2024 2:48 PM EDT us Generic External Data Provider LAB BLOOD ORDERAB LES Final Result [facility] [address] [place] [address] [phone] documented in this encounter Visit Diagnoses Not on filedocumented in this encounter Additional Health Concerns Assessment Noted Time PHQ-9 Depression Total Score: 15 024 10:35 AM EDT documented as of this encounter Care Teams Sheep Farm Manager Relationship Specialty Start Date End Date Brittnee Hanna MD [address] [place] [address] PCP - General Family Medicine 08/17/18 Martina Mancia OD [address] [place] [phone] Optometry 07/26/24 Donna Sutton Integrated Program TeacherFerryboat Operator 05/06/24 documented as of this encounter
--- OUTSIDE RECORDS SUMMARY | 2024-11-01 17:09 | XMS_ITS | Encounter Summary ---
Author Organization [employer] Address [address] [facility] [address] 7t [place] [address] Care Team Providers Care Maintenance Mechanic Supervisor Name Role Phone Brittnee Hanna MD Primary Care Provider [phone]- [phone] Di Hyde PharmD Unavailable Martina Mancia OD Unavailable [phone] Reason for Visit * Reason Onset Date Comments Appointment Request 07/18/2024 Encounter Details Date Type Department Care Team ([facility] st Contact Info) Description 07/18/2024 Telephone [facility] MEDICINE [address] [place] [address] Brittnee Hanna MD [address] [place], [place] [phone] Appointment Request Social History Tobacco Use Types [...] [facility] OPTOMETRY [address] [place] [address] Gavino, Martina, OD [address] [place] [address] documented as of this encounter Goals Goal [...] documented as of this encounter Care Teams Maintenance Mechanic Supervisor Relationship Specialty Start Date End Date Brittnee Hanna MD [address] [place] [address] PCP - General Family Medicine 08/17/18 Di Hyde PharmD [address] [place] [address] Pharmacist Internal Medicine 01/06/23 08/31/24 Martina Mancia OD [address] [place] [address] Optometry 07/26/24 Donna Sutton Suggestion ClerkAgriscience Instructor 05/06/24 documented as of this encounter
--- OUTSIDE RECORDS SUMMARY | 2024-11-01 17:09 | XMS_ITS | Encounter Summary ---
Author Organization [employer] [facility] Address [address] [facility] [address] 7t [place] [address] Care Team Providers Care Circular Clerk Name Role Phone Brittnee Hanna MD Primary Care Provider +- [phone] Di Hyde PharmD Unavailable Martina Mancia OD Unavailable [phone] Reason for Visit * Reason Comments Med Refill Encounter Details Date Type Department Care Team (Late st Contact Info) Description 02/18/2023 Refill [facility] MEDICINE [address] [place] [address] Brittnee Hanna MD [address] [place], [place] [phone] Type 2 diabetes mellitus with other circulatory complication, with long-term current use of insulin ([facility]) Social History Tobacco Use Types Packs/Day [...] Office Visit [facility] OPTOMETRY [address] [place] [address] Martina Mancia OD [address] [place] [address] documented as of this encounter Goals Goal Patient Goal Type Associated Problems Recent Progress Patient-Stated? Author Hemoglobin A1c < 7 Result Component 11.9( 2:31 PM EST) No Di Hyde, PharmD documented as of this encounter Visit Diagnoses Diagnosis Type 2 diabetes mellitus with other circulatory complication, with long-term current use of insulin ([facility]) documented in this encounter Additional Health Concerns Assessment Noted Time PHQ-9 Depression Total Score: 21 023 9:47 AM EDT documented as of this encounter Care Teams Circular Clerk Relationship Specialty Start Date End Date Brittnee Hanna MD [address] [place] [address] PCP - General Family Medicine 08/17/18 Di Hyde, PharmD [address] [place] [address] Pharmacist Internal Medicine 01/06/23 08/31/24 Martina Mancia OD [address] [place] [address] Optometry 07/26/24 Donna Sutton Guest AttendantCar Rental Deliverer 05/06/24 documented as of this encounter
--- OUTSIDE RECORDS SUMMARY | 2024-11-01 17:09 | XMS_ITS | Encounter Summary ---
Author Organization [facility] Address [address] [facility] 7t [place] [address] Care Team Providers Care Rail Operations Controller Name Role Phone Brittnee Hanna MD Primary Care Provider [phone] GavinoMartina OD Unavailable [phone] Encounter Details Date Type Department Care Team ([facility] st Contact Info) Description 10/28/2024 Population Health Risk Score [facility] (C3) Department [address] [facility] [address] [place] [address] Provider, Population Health Generic Social History Tobacco Use Types Packs/Day Years [...] EDT Office Visit [facility] OPTOMETRY [address] [place] [address] Martina Mancia, OD [address] [place] [address] documented as of this encounter Goals Goal [...] as of this encounter Care Teams Rail Operations Controller Relationship Specialty Start Date End Date Brittnee Hanna MD [address] [place] [address] PCP - General Family Medicine 08/17/18 Martina Mancia, OD [address] [place] [address] Optometry 07/26/24 Donna Sutton Irrigation SupervisorProduce Manager 05/06/24 documented as of this encounter
--- OUTSIDE RECORDS SUMMARY | 2024-11-01 17:09 | XMS_ITS | Clinical Summary ---
Author Organization [employer] Address [address] [place] [address] Care Team Providers Care Globe Mounter Name Role Phone Brittnee Hanna MD Primary Care Provider [phone] Tan Mancian OD Unavailable [phone] Allergies Active Allergy Reactions Criticality Noted Date Comments Penicillin V 08/13/2010 Other reaction(s): unspecified Penicillins Hives 03/17/2022 Shellfish-Derived Products Swelling High 0 Other reaction(s): unspecified Medications * This document contains information received from the source organization and may not represent a complete record from that organization. Continuous Blood Gluc [place] (FreeStyle Ric 2 [place]) device Use as directed 1 each 023 Active insulin lispro (HumaLOG) 100 UNIT/ML injectionIndica tions:Type 2 diabetes mellitus with other circulatory complication, with long-term current use of insulin ([facility]) INJECT SUBCUTANEOUSLY DIRECTED PER SLIDING SCALE: BLOOD SUGAR <150 = 0U, 151-200 = 2U, 201-250 = 4U, 251-300 = 6U, 301-350 = 8U, >350 = 10U AND CALL DOCTOR 15 mL 11 024 Active Continuous Glucose Sensor (FreeStyle Ric 2 Sensor) miscIndications :Type 2 diabetes mellitus with hyperglycemia, with long-term current use of insulin ([facility]/HCC) USE DIRECTED TO TEST BLOOD SUGAR CHANGE EVERY 14 DAYS 2 each 024 Active amLODIPine (Norvasc) 5 MG tabletIndicatio ns:Essential hypertension Take 1 tablet (5 mg) by mouth Once per day. 30 tablet 024 2024 Active atorvastatin (Lipitor) 80 MG tabletIndicatio ns:Type 2 diabetes mellitus with hyperglycemia, with long-term current use of insulin ([facility]),Dysli pidemia Take 1 tablet (80 mg) by mouth at bedtime. 90 tablet Active tiotropium (Spiriva HandiHaler) 18 MCG inhalation capsuleIndicati ons:Chronic obstructive pulmonary disease, unspecified COPD type ([facility]),Mild intermittent asthma without complication Place 1 capsule [...] hyperglycemia, with long-term current use of insulin ([facility]) TEST BLOOD SUGAR FIVE TIMES DAILY 200 each 11 Active Blood Glucose Monitoring Suppl (FreeStyle [place] Lite) w/Device kitIndications: Type 2 diabetes mellitus with hyperglycemia, with long-term current use of insulin ([facility]) TEST BLOOD SUGAR FIVE TIMES DAILY DIRECTED 1 kit Active OLANZapine (ZyPREXA) 7.5 MG tabletIndicatio ns:Recurrent major depressive disorder, in remission ([facility]) TAKE 1 TABLET BY MOUTH AT BEDTIME [...] hyperglycemia, with long-term current use of insulin ([facility]) USE BEFORE TEST BLOOD SUGAR AND INSULIN 100 each Active glucose 4 g chewable tabletIndicatio ns:Type 2 diabetes mellitus with hyperglycemia, with long-term current use of insulin ([facility]) Chew 4 tablets (16 g) if needed for low blood sugar. 50 tablet Active glucagon (Baqsimi Two Pack) 3 MG/DOSE nasal powderIndicatio ns:Type 2 diabetes mellitus with hyperglycemia, with long-term current use of insulin ([facility]) For low blood sugar emergencies, insert 3mg [...] complication, with long-term current use of insulin ([facility]) INJECT 40 UNITS SUBCUTANEOUSLY AT BEDTIME Active glucose blood (FreeStyle Precision Freeman Test) test stripIndication s:Type 2 diabetes mellitus with hyperglycemia, with long-term current use of insulin ([facility]) TEST BLOOD SUGAR UP TO FOUR TIMES [...] be different from the original. Enrolled in [facility] DM clinic with Shabbir McmillanD, [facility] Problem Noted Date Diagnosed Date Unintentional weight [...] context of unable to identify significant stressors. yCnthia presented with depressive mood and mild anxiety. [...] for OP and psychiatry services in the [place] area. clinician provided contact information for [facility] and [facility] in [place]. Dizziness 12/30/2023 Overview (12/31/2023): Pt continues to [...] [facility] smoking cessation group, and [facility] pharmacy smoking cessation clinic Discussed [...] [facility] smoking cessation group, and [facility] pharmacy smoking cessation clinic Discussed [...] [facility] smoking cessation group, and [facility] pharmacy smoking cessation clinic Discussed [...] due after 07/27/25 -eye care facilitated by [facility] on 05/20/2023 -dental home is [facility], [facility] -health care proxy filed 04/07/24 Assessment & Plan (07/27/2024 2:57 PM EST): -next physical exam due after 07/27/25 -eye care facilitated by [facility] on 05/20/2023 -dental home is [facility], [facility] -health care proxy filed 04/07/24 Assessment & Plan (04/07/2024 10:24 AM EDT): -next physical exam due after 06/10/2024 -eye care facilitated by [facility] on 05/20/2023 -dental home is [facility], [facility] -health care proxy filed 04/07/24 Assessment & Plan (06/10/2023 2:19 PM EDT): -next physical exam due after 06/10/2024 -eye care facilitated by [facility] on 05/20/2023 -dental home is Anemia 04/01/2022 [...] 06/05/2022 -continue lifestyle modification -continue atorvastatin 80mg [facility] Assessment & Plan (12/31/2023 12:54 PM EDT): [...] controlled -does not take meds before visits -[facility] referral Disorder of cardiovascular system 05/03/2014 Overview [...] strict ED precautions. -Referral to re-establish with [facility] placed Assessment & Plan (09/22/2022 9:32 [...] up with cardiology and was discharged in 2016. -Continue ASA 81, plavix 75mg (life long), [...] for OP and psychiatry services in the [place] area. clinician provided contact information for [facility] and [facility] in [place]. Assessment & Plan (01/08/2023 10:29 AM EDT): [...] services. ?? PLAN: 1. Follow up with [facility]: Not recommended for follow-up 2. Patient goal is to engage in behavioral health services. 3. Behavioral Recommendations a. Practice using a different coping skill on a daily basis b. Once services are established, attend therapy and medication management appointments c. Patient will reach out to a [facility] during next PCP appointment if needed Assessment & Plan (07/22/2022 2:55 PM EST): Most likely exacerbated by lack of meds >1m. Called pharmacy and verify med dose, sent Rx for Olanzapine 7.5mg I will email [facility] to make an appt with Dr Quinn [...] glucose monitor. Needs sensors. 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 Lab Results Component [...] admitted on 03/17/2022 for DKA (diabetic ketoacidosis) ([facility]) [E11.10];Acute cystitis without hematuria [N30.00] Results: Results [...] admitted on 03/17/2022 for DKA (diabetic ketoacidosis) ([facility]) [E11.10];Acute cystitis without hematuria [N30.00] Results: Results [...] voiced today. Pain in upper limb 08/11/2013 4 Kidney disease 09/13/2012 04/07/2024 Noncompliance with treatment 09/13/2012 04/07/2024 Hypercholesterolemia 04/21/2012 023 Hypertension 03/25/2012 09/22/2022 Overview (09/19/2022): Last Assessment & Plan: - running high - need to clarify home medication list - prn IV hydralazine for now Encounters Date Type Department Care Team Description 11/01/2024 Orders Only GENERIC EXTERNAL DATA DEPARTMENT Provider, Generic External Data 10/28/2024 Population [facility] Risk Score [facility] (C3) Department [address] [address] Provider, [facility] Generic 10/21/2024 Telephone [facility] PEDIATRICS [address] [place] [address] Brittnee Hanna MD Critical Lab 10/16/2024 Refill [facility] [address] [place] [address] Brittnee Hanna MD Mild intermittent asthma without complication 10/06/2024 Orders Only GENERIC EXTERNAL DATA DEPARTMENT Provider, Generic External Data 10/06/2024 Telephone [facility] MEDIC[facility] [address] [place] [address] Cipriano Campa MD Results 10/04/2024 Telephone [facility] MEDICINE [address] [place] [address] Di Hyde, ShabbirD 10/04/2024 Orders Only GENERIC EXTERNAL DATA DEPARTMENT Provider, Generic External Data 10/03/2024 Refill [facility] [address] [place] [address] Brittnee Hanna MD Mild intermittent asthma without complication 09/21/2024 Telephone [facility] MEDIC[facility] [address] [place] [address] Brittnee Hanna MD 09/20/2024 Telephone [facility] MEDIC[facility] [address] [place] [address] Flory Kaufman RN 09/19/2024 Refill [facility] [address] [place] [address] Di Hyde, PharmD Essential hypertension 09/19/2024 Telephone [facility] MEDICINE [address] [place] [phone] Leilani Agarwal, RN Results 09/19/2024 Orders Only [facility] MEDICINE [address] [place] [phone] Brittnee Hanna MD Hypokalemia (Primary Dx) 09/19/2024 Orders Only GENERIC EXTERNAL DATA DEPARTMENT Provider, Generic External Data 09/19/[address] [address] Brittnee Hanna MD Referral 09/12/2024 Refill [facility]C MED & PEDS [address] [place], [place] [phone] Brittnee Hanna MD 09/07/2024 Orders Only [facility] MEDICINE [address] [place] [phone] Brittnee Hanna MD Type 2 diabetes mellitus with hyperglycemia, with long-term current use of insulin ([facility]) (Primary Dx); Unintentional weight loss 09/07/[address] [address] Di Hyde, ShabbirD Appointment Request 08/31/2024 Travel 08/25/2024 Refill [facility] MEDICINE [address] [place] [phone] Brittnee Hanna MD Type 2 diabetes mellitus with hyperglycemia, with long-term current use of insulin ([facility]); Anemia, unspecified type; Dyslipidemia 08/10/2024 Telephone [facility] MEDICINE [address] [place] [phone] Brittnee Hanna MD Appointment scheduling 08/05/2024 Travel from Last 3 Months Immunizations Name [...] [facility] [address] [place] [address] Gavino, Martina, OD [address] [place] [address] Health Maintenance Due Date Last Done Comments [...] topic Meningococcal Vaccine Aged Out No mami adlaberto eligible based on patient's age to complete [...] WHOLE BLOOD Routine 11/01/2024 2:44 PM EDT BASIC METABOLIC PANEL Routine 10/21/2024 10:30 AM EST Hypokalemia ISLET CELL AB SCREEN W/REFL TITER Routine 10/06/2024 1:46 PM EST GLUTAMIC ACID DECARBOXYLASE 65 AB Routine 10/06/2024 1:46 PM EST C-PEPTIDE Routine 10/06/2024 1:46 PM EST BASIC METABOLIC PANEL Routine 10/06/2024 1:46 PM EST Type 2 diabetes mellitus with hyperglycemia, with long-term current use of insulin ([facility]) GLUCOSE, WHOLE BLOOD Routine 10/04/2024 10:33 AM [...] Maintenance Results * (ABNORMAL) Glucose, Whole Blood (11/01/2024 2:44 PM EDT) Only the most recent of2 resultswithin the time period is included. Glucose, Whole Blood 241(H) 60 - 115 mg/dL [facility] Comment:METER #: [id number] 5Testing performed in the Endocrinology Department [address], [address], [facility]. 11/01/2024 2:44 PM EDT 11/01/2024 2:48 PM EDT us Generic External Data Provider LAB BLOOD ORDERAB LES Final Result Performing Organization Address City/[facility] Co de Phone Number [facility] [address] [place] [address] [phone] * (ABNORMAL) Basic Metabolic Panel (10/21/2024 10:30 AM EST) Only the most recent of2 resultswithin the time period is included. Sodium 133(L) 135 - 145 mmol/L [facility] Potassium 4.2 3.3 - 5.1 mmol/L [facility] Chloride 97 96 - 108 mmol/L [facility] Carbon Dioxide 27 22 - 29 mmol/L [facility] Anion Gap 13 12 - 20 [facility] Urea Nitrogen (BUN) 18(H) 9 - 16 mg/dL [facility] Creatinine, Serum 1.31 0.5 - 1.4 mg/dL [facility] Estimated Glomerular Filt Rate 41 [facility] Comment:Chronic Kidney Disea se: Estimated GFR < 60 mL/min/[id number] Kidney Disease: Estimated GFR < 15 mL/min/1.73m2 Glucose 465(HH) 60 - 115 mg/dL [facility] Comment:Critical value for t est(s): GLUR Results called to amado back by: SETH Espinal RN Person calling: [email or web address] Date:10/21/2024 Time:12:50 Calcium 10.3(H) 8.4 - 10.2 mg/dL [facility] Blood Venous blood specimen / Unknown 10/21/2024 10:30 AM EST 10/21/2024 11:30 AM EST us Cipriano Ramirez MD LAB BLOOD ORDERABLES Final Result [facility] [address] [place] [phone] * Glutamic Acid Decarboxylase 65 Antibody (10/06/2024 1:46 PM EST) Pathologist [facility] Glutamic acid decarboxylase Ab <5 <5 IU/mL [facility] Comment:This test was perfor med using the GAD65 WIN method,which is standardized against the Internationalreference preparation 97/550.THIS TEST WAS PERFORMED AT:[facility] [place] [address]JLZIRORALINE GEIGER MD,PHD 10/06/2024 1:46 PM EST 10/06/2024 1:46 PM EST Generic External Data Provider LAB BLOOD ORDERAB LES Final Result Performing Organization Address [facility] Co de Phone Number [facility] [address] [place] [phone] * C-Peptide (10/06/2024 1:46 PM EST) Pathologist [facility] C-Peptide 1.37 0.80 - 3.85 ng/mL [facility] Comment:THIS TEST WAS PERFOR MED AT:[facility] [address] [id number] LANDERS MD 10/06/2024 1:46 PM EST 10/06/2024 1:46 PM EST us Generic External Data Provider LAB BLOOD ORDERAB LES Final Result Performing Organization Address [facility] Co de Phone Number [facility] [address] [place] [phone] * Islet Cell Antibody Screen W/Reflex to Titer (10/06/2024 1:46 PM EST) Pathologist [facility] Islet Cell Antibody Screen NEGATIVE NEGATIVE [facility] Comment:This test was develo ped and its analytical performancecharacteristics have been determined by [employer].It has not been cleared or approved by FDA. This assay hasbeen validated pursuant to the CLIA regulations and is usedfor clinical purposes.THIS TEST WAS PERFORMED AT:[facility]/[employer] [id number] [place] [address]KIDGBBART ABBASI MD,PHD,CRISTI Islet Cell Antibody Titer TNP [facility] 10/06/2024 1:46 PM EST 10/06/2024 1:46 PM EST Generic External Data Provider LAB BLOOD ORDERAB LES Final Result Performing Organization Address [facility] de Phone Number [facility] [address] [place] [phone] * Albumin, Random Urine W/Creatinine (09/19/2024 10:00 AM EST) Creatinine, Urine 161.00 mg/dL [facility] Microalbumin Urine 17.0 mg/L [facility] Microalbum Creatinine Ratio Ur 10.5 <30 ug/mg cr [facility] Comment:Albumin/Creatinine R atio Reference Ranges: Normal: < 30 ug/mg creatinine Microalbuminuria: 30 - 300 ug/mg creatinineClinical Albuminuria: > 300 ug/mg creatinine Urine 09/19/2024 10:0 0 AM EST 09/19/2024 11:51 AM EST Brittnee Hanna MD LAB URINE ORDERABLES Final Result Performing Organization Address [facility] Co de Phone Number [facility] [address] [place] [phone] * (ABNORMAL) CBC auto differential (09/19/2024 10:00 AM EST) White Blood Count 7.1 4.8 - 10.8 X10*3/uL [facility] Red Blood Count 4.14(L) 4.20 - 5.50 X10*6/uL [facility] Hemoglobin 12.1 12.0 - 16.0 g/dl [facility] Hematocrit 35.6(L) 37.0 - 47.0 % [facility] Mean Corpuscular Volume 86.0 80.0 - 98.0 fL [facility] Mean Corpuscular Hemoglobin 29.2 27.0 - 33.0 pg [facility] Mean Corpuscular HGB Conc 34.0 31.0 - 35.0 g/dl [facility] Red Cell Distribution Width 11.5 11.0 - 16.0 % [facility] Platelet Count 436(H) 160 - 400 X10*3/uL [facility] Mean Platelet Volume 10.6 9.4 - 12.3 fL [facility] Neutrophils Percent Auto 69.4 45 - 73 % [facility] Imm Gran Pct Auto 0.3 0.0 - 0.4 % [facility] Lymphocytes Percent Auto 21.7 20 - 40 % [facility] Monocytes Percent Auto 6.3 2 - 11 % [facility] Eosinophils Percent Auto 2.0 0 - 4 % [facility] Basophils Percent Auto 0.3 0 - 2 % [facility] NRBC Pct Auto 0.0 0.0 - 0.2 /100WBC [facility] Neutrophils Absolute Auto 5.0 2.0 - 8.3 x10*3/uL [facility] Imm Gran Abs Auto 0.02 0.00 - 0.03 X10*3/uL [facility] Lymphocytes Absolute Auto 1.6 1.2 - 4.9 X10*3/uL [facility] Monocytes Absolute Auto 0.5 0.1 - 1.2 X10*3/uL [facility] Eosinophils Absolute Auto 0.1 0.0 - 0.4 X10*3/uL [facility] Basophils Absolute Auto 0.0 0.0 - 0.2 X10*3/uL [facility] NRBC Abs Auto 0.000 0.0 - 0.012 X10*3/uL [facility] 09/19/2024 10:0 0 AM EST 09/19/2024 11:32 AM EST Generic External Data Provider LAB BLOOD ORDERAB LES Final Result Performing Organization Address [facility] Phone Number [facility] [address] [place] [phone] * TSH (09/19/2024 10:00 AM EST) Thyroid Stimulating Hormone 0.76 0.32 - 4.0 uIU/mL [facility] Comment:TSH 3rd Generation ( [facility]) 09/19/2024 10:0 0 AM EST 09/19/2024 11:32 AM EST Generic External Data Provider LAB BLOOD ORDERAB LES Final Result Performing Organization Address [facility] Number [facility] [address] [place] [phone] * (ABNORMAL) Glucose (09/19/2024 10:00 AM EST) Glucose Fasting 290(H) 60 - 99 mg/dL [facility] Comment:A fasting glucose of 126 mg/dl or greater on more than oneoccasion is considered diagnostic of diabetes. 09/19/2024 10:0 0 AM EST 09/19/2024 11:32 AM EST Generic External Data Provider LAB BLOOD ORDERAB LES Final Result Performing Organization Address [facility] Phone Number [facility] [address] [place] [phone] * Hepatic Function Panel (09/19/2024 10:00 AM EST) Only the most recent of2 resultswithin the time period is included. Bilirubin, Direct 0.1 0.0 - 0.5 mg/dL [facility] 09/19/2024 10:0 0 AM EST 09/19/2024 11:32 AM EST us Generic External Data Provider LAB BLOOD ORDERAB LES Final Result Performing Organization Address City/[facility]/ZIP Co de Phone Number [facility] [address] [place] [address] [phone] * (ABNORMAL) Lipid Panel, Standard (09/19/2024 10:00 AM EST) Only the most recent of2 resultswithin the time period is included. Triglycerides 209(H) <150 mg/dL [facility] Comment:Desirable Triglyceri de: less than 150 mg/dLBorderline High Triglyceride 150-199 mg/dLHigh Triglyceride: 200-499 mg/dLVery High Triglyceride: greater than or equal to 5OO mg/dL Cholesterol 142 <200 mg/dL [facility] Comment:Desirable Cholestero l: less than 200 mg/dLBorderline High Cholesterol: 200-239 mg/dLHigh Cholesterol: greater than 239 mg/dL LDL Cholesterol Calculated 64 <100 mg/dL [facility] Comment:Desirable LDL: less than 100 mg/dLNear Optimal/Above Optimal LDL: 110- 129 mg/dLBorderline High LDL: 130-159 mg/dLHigh LDL: 160-189 mg/dLVery High LDL: greater than or equal to 190 mg/dL HDL Cholesterol 37(L) >40 mg/dL [facility] Comment:Desirable HDL: great er than 40 mg/dL Note: This HDL assay may give artificially low results in patients with liver disease. 09/19/2024 10:0 0 AM EST 09/19/2024 11:32 AM EST us Generic External Data Provider LAB BLOOD ORDERAB LES Final Result [facility] [address] [place] [phone] * (ABNORMAL) Comprehensive Metabolic Panel (09/19/2024 10:00 AM EST) Sodium 134(L) 135 - 145 mmol/L [facility] Potassium 3.0(L) 3.3 - 5.1 mmol/L [facility] Chloride 99 96 - 108 mmol/L [facility] Carbon Dioxide 26 22 - 29 mmol/L [facility] Anion Gap 12 12 - 20 [facility] Urea Nitrogen (BUN) 18(H) 9 - 16 mg/dL [facility] Creatinine, Serum 1.23 0.5 - 1.4 mg/dL [facility] Estimated Glomerular Filt Rate 44 [facility] Comment:Chronic Kidney Disea se: Estimated GFR < 60 mL/min/1.78x4Zfcmtn Kidney Disease: Estimated GFR < 15 mL/min/1.73m2 Glucose 288(H) 60 - 115 mg/dL [facility] Calcium 8.9 8.4 - 10.2 mg/dL [facility] Bilirubin, Total 0.5 0.0 - 1.0 mg/dL [facility] Aspartate Amino Transferase 23 5 - 31 U/L [facility] Alanine Aminotransferase 27 0 - 31 U/L [facility] Total Protein 7.5 6.5 - 8.0 g/dL [facility] Albumin Level 4.1 3.5 - 5.0 g/dL [facility] Alkaline Phosphatase 108 39 - 117 U/L [facility] 09/19/2024 10:0 0 AM EST 09/19/2024 11:32 AM EST Generic External Data Provider LAB BLOOD ORDERAB LES Final Result [facility] [address] [place] [phone] * (ABNORMAL) POCT HGB A1C (07/27/2024 2:31 PM EST) Hemoglobin A1C 11.9(A) 4.0 - 6.0 % QC Media Lot # [id number] Lot# Expiration Date [id number] Blood 07/27/2024 2:31 PM EST Brittnee Hanna MD POINT OF CARE TEST ENTER/E DIT ORDERABLES Final Result * BI Mammogram Screening Tomosynthesis Bilateral (07/24/2023 3:39 PM EST) Anatomical Region Laterality Modality Breast Bilateral Mammography 07/24/2023 3:39 PM EST Narrative 08/12/2023 3:43 AM EST ? [facility] ? [address] ?[place] [address] ? Mammography Report ? Signed ? Patient: Cynthia Perry ?MR#: [id number] ?? [id number] ? : 1965 ?Acct:[id number] ? Age/Sex: 57 / F ?ADM Date: 07/24/23 ? Loc: HO.MAMMO ? Attending Dr: Brittnee Hanna MD ? Ordering Physician: Brittnee Hanna MD ?Results: 1N ?? egative ? Date of Service: 07/24/23 ?Follow Up: 1 Year From Orig ?? inal Mammogram ? Procedure(s): MM tomosynthesis screening BI ?? Accession Number(s): [id number] ? cc: Brittnee Hanna MD ? EXAMINATION: [...] 0340 ? DD/ 1539 ? TD/TT: ? Carton Wrapper: ? Procedure Note Kelle, Anant - 08/12/2023 [facility] [address] [place] [address] Mammography Report Signed Patient: Javy Perry#: M [id number] : 1965Acct:[id number] Age/Sex: 57 / FADM Date: 07/24/23 Loc: HO.MAMMO Attending Dr: Brittnee Hanna MD Ordering Physician: Brittnee Hanna MDResults: 1N egative Date of Service: 07/24/23Follow Up: 1 Year From Orig inal Mammogram Procedure(s): MM tomosynthesis screening BI Accession Number(s): [id number] cc: Brittnee Hanna MD EXAMINATION: MM SCREENING [...] in OV> 08/12/23 0340 DD/ 1539 TD/TT: Carton Wrapper: Brittnee Hanna MD [facility] [place] PROCEDURES Edited R esult - Final [...] test SurePath(TM) specimens have been determined by [employer]. The modifications have not been cleared or approved by the FDA. This assay has been validated pursuant to the CLIA regulations and is used for clinical purposes. ?? For additional information, please refer to https://education.[employer]/faq/DPA610 (This link is being provided for information/ [...] with computer assisted technology. CONVERTED LEGACY LABS Change Of Address Clerk: SEE COMMENT CONVERTED LEGACY LABS Comment: RXB, CT(ASCP) CT screening location: [address] ??[address] HPV nRNA E6/E7 Not Detected Not Detected CONVERTED LEGACY LABS Comment: Methodology: Amusement Park Entertainer-Mediated Amplification This assay detects E6/E7 viral messenger RNA (mRNA) from 14 high-risk HPV types (16,18,31,33,35,39,45,51,52,56,58,59,66,68). ? Cervical sources are required for HPV testing. If a vaginal source from a patient who has had a total hysterectomy with removal of cervix was ?? submitted, please contact the testing laboratory for alternative testing options. ?? For additional information, please refer to http://Ryla.[employer]/faq/RAC335h8 (This link if provided for information/ educational [...] of this assay have been determined by [employer]. The modifications have not been cleared or approved by the FDA. This assay has been validated pursuant to the CLIA regulations and is used for clinical purposes. ?? 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
--- OUTSIDE RECORDS SUMMARY | 2024-11-01 17:09 | XMS_ITS | Encounter Summary ---
Author Organization [employer] Address [address] 7t [place] [address] Care Team Providers Care Chore Worker Name Role Phone Brittnee Hanna MD Primary Care Provider +1- [phone] Di Hyde PharmD Unavailable Martina Mancia OD Unavailable Reason for Visit * Reason Comments Med Refill Encounter Details Date Type Department Care Team ([facility] Contact Info) Description 05/12/2023 Refill [facility] [address] [place] [address] Cipriano Campa MD [address] [place] [address] Type 2 diabetes mellitus with other circulatory complication, with long-term current use of insulin ([facility]) Social History Tobacco Use Types Packs/Day Years [...] Upcoming Encounters Date Type Department Care Team ([facility] Contact Info) Description 11/07/2024 1:00 PM EDT Office Visit [facility] OPTOMETRY [address] [place] [address] Martina Mancia, OD [address] [place] [address] documented as of this encounter Goals Goal Patient Goal Type Associated Problems Recent Progress Patient-Stated? Author Hemoglobin A1c < 7 Result Component 11.9( 4 2:31 PM EST) No Di Hyde, PharmD documented as of this encounter Visit Diagnoses Diagnosis Type 2 diabetes mellitus with other circulatory complication, with long-term current use of insulin ([facility]) documented in this encounter Additional Health Concerns Assessment Noted Time PHQ-9 Depression Total Score: 21 023 9:47 AM EDT documented as of this encounter Care Teams Chore Worker Relationship Specialty Start Date End Date Brittnee Hanna MD [address] [place] [address] PCP - General Family Medicine 08/17/18 Di Hyde, PharmD [address] [place] [address] Pharmacist Internal Medicine 01/06/23 08/31/24 Martina Mancia, JONATHON [address] [place] [address] Optometry 07/26/24 Donna Sutton Riding InstructorBuffing Wheel Inspector 05/06/24 documented as of this encounter
--- OUTSIDE RECORDS SUMMARY | 2024-11-01 17:09 | XMS_ITS | Encounter Summary ---
Author Organization [employer] Address [address] [facility] [address] [facility] 7t [place] [address] Care Team Providers Care Automobile Spring Repairer Name Role Phone Brittnee Hanna MD Primary Care Provider +1- [phone] Martina Mancia OD Unavailable [phone] Reason for Visit * Reason Onset Date Comments Critical Lab 10/21/2024 Encounter Details Date Type Department Care Team ([facility] st Contact Info) Description 10/21/2024 Telephone [facility] [address] [place] [address] Brittnee Hanna MD [address] [place] [address] Critical Lab Social History Tobacco Use Types Packs/Day Years [...] encounter Miscellaneous Notes * Telephone Encounter - Fauzia Prakash RN - 10/21/2024 1:12 PM EST Spoke with PCP in person who reports pt's BG is always very elevated. Telephone call placed to pt. Thanked her for getting labs done. Informed potassium looks good. BG elevated. Reminded her to use insulin as directed and come to [facility] if symptomatic. Pt verbalized understanding and denied having anyfurther questions or concerns at this time. * Telephone Encounter - Symone Gaines RN - 10/21/2024 12:56 PM EST TC incoming from [place] [facility] with critical results: Pt glucose is 465. Will route to PCP and team to advise. Fauzia BONILLA made aware, verbal. documented in this encounter Plan of Treatment Upcoming Encounters Date Type Department Care Team (Late st Contact Info) Description 11/07/2024 1:00 PM EDT Office Visit [facility] OPTOMETRY [address] [place] [address] Martina Mancia, OD [address] [place] [address] documented as of this encounter Goals Goal [...] documented as of this encounter Care Teams Automobile Spring Repairer Relationship Specialty Start Date End Date Brittnee Hanna MD [address] [place] [address] PCP - General Family Medicine 08/17/18 Martina Mancia OD [address] [place] [phone] Optometry 07/26/24 Donna Sutton Water Leak RepairerAdministrative Dietitian 05/06/24 documented as of this encounter
--- OUTSIDE RECORDS SUMMARY | 2024-11-01 17:09 | XMS_ITS | Encounter Summary ---
Author Organization [employer] Address [address] [facility] [address] [place] [address] Care Team Providers Care Cable Wirer Name Role Phone Brittnee Hanna MD Primary Care Provider +- [phone] Di Hyde PharmD Unavailable Martina Mancia OD Unavailable [phone] Encounter Details Date Type Department Care Team ([facility] st Contact Info) Description 05/24/2024 Orders Only [facility] [address] [place] [address] Brittnee Hanna MD [address] [place] [address] Social History Tobacco Use Types Packs/Day Years [...] 1:00 PM EDT Office Visit [facility] OPTOMETRY [address] [place] [address] Martina Mancia, OD [address] [place] [address] documented as of this encounter Goals Goal [...] documented as of this encounter Care Teams Cable Wirer Relationship Specialty Start Date End Date Brittnee Hanna MD [address] [place] [address] PCP - General Family Medicine 08/17/18 Di Hyde, PharmD [address] [place] [address] Pharmacist Internal Medicine 01/06/23 08/31/24 Martian Mancia OD [address] [place] [address] Optometry 07/26/24 Donna Sutton Distributor Sales ConsultantGraphic Art Sales Representative 05/06/24 documented as of this encounter
--- OUTSIDE RECORDS SUMMARY | 2024-11-01 17:09 | XMS_ITS | Encounter Summary ---
Author Organization [employer] Address [address] 7t [place] [address] Care Team Providers Care Head Loft Worker Name Role Phone Brittnee Hanna MD Primary Care Provider [phone]- [phone] Tan Mancian OD Unavailable [phone] Encounter Details Date Type Department Care Team ([facility] Contact Info) Description 10/04/2024 Orders Only [...] Visit [facility] OPTOMETRY [address] [place] [address] GavinoMartina, OD [address] [place] [address] documented as of this encounter Goals Goal [...] Whole Blood 353(HH) 60 - 115 mg/dL [facility] Comment:METER #: [id number] Testing performed in the Endocrinology Department [address] , [address], [facility]. 10/04/2024 10:3 3 AM EST 10/04/2024 10:39 AM EST us Generic External Data Provider LAB BLOOD ORDERAB LES Final Result [facility] [address] [place] [address] [phone] documented in this encounter Visit Diagnoses Not on filedocumented in this encounter Additional Health Concerns Assessment Noted Time PHQ-9 Depression Total Score: 15 024 10:35 AM EDT documented as of this encounter Care Teams Head Loft Worker Relationship Specialty Start Date End Date Brittnee Hanna MD 230 [place] [address] PCP - General Family Medicine 08/17/18 Martina Mancia OD [address] [place] [address] Optometry 07/26/24 Donna Sutton Outsole TackerAviation Project Engineer 05/06/24 documented as of this encounter
--- OUTSIDE RECORDS SUMMARY | 2024-11-01 17:09 | XMS_ITS | Encounter Summary ---
Author Organization [employer] Address [address] [place] [address] Care Team Providers Care Medical Management Specialist Name Role Phone Brittnee Hanna MD Primary Care Provider [phone]- [phone] Martina Mancia OD Unavailable [phone] Reason for Visit * Reason Comments Med Refill Encounter Details Date Type Department Care Team ([facility] st Contact Info) Description 10/16/2024 Refill [facility] MED[facility] [address] [place], [place] [phone] Brittnee Hanna MD [address] [place] [address] Mild intermittent asthma without complication Social History [...] Description 11/07/2024 1:00 PM EDT Office Visit [facility] OPTOMETRY [address] [place] [address] Martina Mancia OD [address] [place] [address] documented as of this encounter Goals Goal [...] as of this encounter Care Teams Medical Management Specialist Relationship Specialty Start Date End Date Brittnee Hanna MD [address] [place] [address] PCP - General Family Medicine 08/17/18 Martina Mancia OD [address] [place] [phone] Optometry 07/26/24 Donna Sutton Therapeutic Support StaffSterile Processing Technologist 05/06/24 documented as of this encounter
--- OUTSIDE RECORDS SUMMARY | 2024-11-01 17:09 | XMS_ITS | Encounter Summary ---
Author Organization [employer] Address [address]t [place] [address] Care Team Providers Care Assembly Person Name Role Phone Brittnee Hanna MD Primary Care Provider [phone] Tan Mancian OD Unavailable [phone] Encounter Details Date Type Department Care Team ([facility] Contact Info) Description 10/06/2024 Orders Only GENERIC [...] Visit [facility] OPTOMETRY [address] [place], [place] [phone] GavinoMartina, OD [address] [place] [address] documented as of this encounter Goals Goal [...] EST) Islet Cell Antibody Screen NEGATIVE NEGATIVE [facility] Comment:This test was develo ped and its analytical performancecharacteristics have been determined by [employer].It has not been cleared or approved by FDA. This assay hasbeen validated pursuant to the CLIA regulations and is usedfor clinical purposes.THIS TEST WAS PERFORMED AT:[email or web address] [id number] [place] [address]JGYTHBART ABBASI MD,PHD,CRISTI Islet Cell Antibody Titer TNP [facility] 10/06/2024 1:46 PM EST 10/06/2024 1:46 PM EST Generic External Data Provider LAB BLOOD ORDERAB LES Final Result Performing Organization Address [facility] Co de Phone Number [facility] [address] [place] [phone] * Glutamic Acid Decarboxylase 65 Antibody (10/06/2024 1:46 PM EST) Glutamic acid decarboxylase Ab <5 <5 IU/mL [facility] Comment:This test was perfor med using the GAD65 WIN method,which is standardized against the Internationalreference preparation 97/550.THIS TEST WAS PERFORMED AT:[email or web address] [id number] [place] [address]FTKCEUXALINE GEIGER MD,PHD 10/06/2024 1:46 PM EST 10/06/2024 1:46 PM EST Generic External Data Provider LAB BLOOD ORDERAB LES Final Result Performing Organization Address [facility] de Phone Number [facility] [address] [place] [phone] * C-Peptide (10/06/2024 1:46 PM EST) C-Peptide 1.37 0.80 - 3.85 ng/mL [facility] Comment:THIS TEST WAS PERFOR MED AT:[facility] [address] [id number] LANDERS MD 10/06/2024 1:46 PM EST 10/06/2024 1:46 PM EST us Generic External Data Provider LAB BLOOD ORDERAB LES Final Result [facility] [address] [place] [address] [phone] documented in this encounter Visit Diagnoses Not on filedocumented in this encounter Additional Health Concerns Assessment Noted Time PHQ-9 Depression Total Score: 15 024 10:35 AM EDT documented as of this encounter Care Teams Assembly Person Relationship Specialty Start Date End Date Brittnee Hanna MD [address] [place] [address] PCP - General Family Medicine 08/17/18 Martina Mancia OD [address] [place] [address] Optometry 07/26/24 Donna Sutton Mechanism AssemblerLead Refiner 05/06/24 documented as of this encounter
--- OUTSIDE RECORDS SUMMARY | 2024-11-01 17:09 | XMS_ITS | Encounter Summary ---
Author Organization [facility] Address [address] [facility] [address] 7t [place] [address] Care Team Providers Care Medical Records Coder Name Role Phone Brittnee Hanna MD Primary Care Provider +- [phone] Di Hyde PharmD Unavailable Martina Mancia OD Unavailable Encounter Details Date Type Department Care Team ([facility] Contact Info) Description 09/22/2022 Abstract [facility] MEDICINE [address] [place] [address] Brittnee Hanna MD [address] [place] [address] Social History Tobacco Use Types Packs/Day Years [...] Upcoming Encounters Date Type Department Care Team ([facility] Contact Info) Description 11/07/2024 1:00 PM EDT Office Visit [facility] OPTOMETRY [address] [place], [place] [phone] Martina Mancia, OD [address] [place] [address] documented as of this encounter Procedures Procedure [...] Blood Venous blood specimen / Unknown Result [facility] Provider MD LAB BLOOD ORDERABLES Emelia l Result * Basic Metabolic Panel (06/05/2022) Creatinine 1.0 0.5 - 1.1 mg/dL Blood Venous blood specimen / Unknown Result [facility] Provider MD LAB BLOOD ORDERABLES Emelia l Result * (ABNORMAL) Lipid Panel, Standard (06/05/2022) Triglycerides 163(A) 40 - 160 mg/dL Cholesterol 209(A) 0 - 200 mg/dL HDL Cholesterol 70 35 - 70 mg/dL LDL Cholesterol 111 mg/dL Blood Venous blood specimen / Unknown Result [facility] Provider MD LAB BLOOD ORDERABLES Emelia l Result * Pap Smear (05/16/2022 12:00 AM EDT) Swab [facility] Provider LAB CYTOLOGY ORDERABLES F inal Result [facility] * Colonoscopy (08/21/2020) Colonoscopy hyperplastic polyp Dr. Olivarez [facility] Provider HEALTH MAINTENANCE Final Result * HIV-1 antibody, EIA (04/25/2019) External HIV-1 Antibody Negative Blood Venous blood specimen / Unknown Result [facility] Provider LAB BLOOD ORDERABLES Emelia l Result * Mammography (06/14/2018) Mammogram normal Anatomical Region Laterality Modality Other [facility] Provider HEALTH MAINTENANCE Final Result * Hepatitis C Antibody with Reflex to HCV, RNA, Quantitative, Real-Time PCR (02/22/2014) Blood Venous blood specimen / Unknown 02/22/2014 Result [facility] Provider LAB BLOOD ORDERABLES Emelia l Result documented in this encounter Visit Diagnoses Not on filedocumented in this encounter Additional Health Concerns Assessment Noted Time PHQ-9 Depression Total Score: 0 09/22/19 23 9:47 AM EST documented as of this encounter Care Teams Medical Records Coder Relationship Specialty Start Date End Date Brittnee Hanna MD [address] [place] [address] PCP - General Family Medicine 08/17/18 Di Hyde PharmD [address] [place] [address] Pharmacist Internal Medicine 01/06/23 08/31/24 Martina Mancia OD [address] [place] [address] [phone] Optometry 07/26/24 Donna Sutton Technical Support AssistantAutomobile Relocation Engineer 05/06/24 documented as of this encounter
--- OUTSIDE RECORDS SUMMARY | 2024-11-01 17:09 | XMS_ITS | Encounter Summary ---
Author Organization [employer] Address [address]t [place] [address] Care Team Providers Care University Relations Director Name Role Phone Brittnee Hanna MD Primary Care Provider +- [phone] Di Hyde PharmD Unavailable Martina Mancia OD Unavailable [phone] Encounter Details Date Type Department Care Team ([facility] st Contact Info) Description 04/27/2024 Abstract [facility] MED[facility] [address] [place] [address] Brittnee Hanna MD [address] [place], [place] [phone] Social History Tobacco Use Types Packs/Day Years Used Date Smoking Tobacco: Some Days Cigarettes Passive Smoke Exposure: Current Smokeless Tobacco: Never Depression Answer Date Recorded Patient Health Questionnaire-9 Score 15 04/07/2024 Patient Health Questionnaire-9 Score 15 04/07/2024 Last PHQ-9: Questionnaire Data Not on file 0 04/07/2024 Housing Stability Answer Date Recorded What is your housing situation today? I have francisco jnoes 12/30/[address] you li [...] Description 11/07/2024 1:00 PM EDT Office Visit [facility] OPTOMETRY [address] [place] [address] GavinoTann, OD [address] [place] [address] documented as of this encounter Goals Goal [...] documented as of this encounter Care Teams University Relations Director Relationship Specialty Start Date End Date Brittnee Hanna MD [address] [place] [address] PCP - General Family Medicine 08/17/18 Di Hyde, PharmD [address] [place] [address] Pharmacist Internal Medicine 01/06/23 08/31/24 Martina Mancia OD [address] [place] [address] Optometry 07/26/24 Donna Sutton Statistical Methods TeacherLedger Clerk 05/06/24 documented as of this encounter
--- OUTSIDE RECORDS SUMMARY | 2024-11-01 17:09 | XMS_ITS | Encounter Summary ---
Author Organization [employer] Address [address] [facility] [address] [place] [address] Care Team Providers Care Kitchenwhere Maker Name Role Phone Brittnee Hanna MD Primary Care Provider [phone]- [phone] Di Hyde PharmD Unavailable Martina Mancia OD Unavailable Reason for Visit * Reason Onset Date Comments triage 07/21/2022 Encounter Details Date Type Department Care Team ([facility] st Contact Info) Description 07/21/2022 Telephone [facility] MED[facility] [address] [place] [address] Brittnee Hanna MD [address] [place], [place] [phone] triage Social History Tobacco Use Types Packs/Day [...] and depression since losing MH services with [facility]. Per pt has not had any follow up with therapist or psychiatrist. Was supposed to have an appt on 06/15 but when called to r/s was never answered. Has been without meds. Per pt denies any SI/HI. Just increased anxiety. Pt advised that no appts in clinic tomorrow. Pt to come into [facility] tomorrow to speak with on site [facility] clinician and see if [facility] provider (advised cannot guarantee Dr. Hanna) can [...] accepted this outcome Please contact pt at [phone] speaks Kittitian documented in this encounter Plan of Treatment Upcoming Encounters Date Type Department Care Team (Late st Contact Info) Description 11/07/2024 1:00 PM EDT Office Visit [facility] OPTOMETRY [address] [place] [address] Martina Mancia, OD [address] [place] [address] documented as of this encounter Visit Diagnoses Not on filedocumented in this encounter Care Teams Kitchenwhere Maker Relationship Specialty Start Date End Date Brittnee Hanna MD [address] [place], [place] [phone] PCP - General Family Medicine 08/17/18 Di Hyde PharmD [address] [place] [address] [phone] Pharmacist Internal Medicine 01/06/23 08/31/24 Martina Mancia OD [address] [place] [address] [phone] Optometry 07/26/24 Donna Sutton Disaster Recovery AnalystPhotographic Plate Maker 05/06/24 documented as of this encounter
--- OUTSIDE RECORDS SUMMARY | 2024-11-01 17:09 | XMS_ITS | Encounter Summary ---
Author Organization [employer] Address [address] [facility] [facility] [address] 7t [place] [address] Care Team Providers Care Manager Pet Name Role Phone Brittnee Hanna MD Primary Care Provider +1- [phone] Di Hyde PharmD Unavailable [phone] Martina Mancia OD Unavailable Reason for Visit * Reason Comments Med Refill Encounter Details Date Type Department Care Team (Late st Contact Info) Description 07/21/2023 Refill [facility] MED & PEDS [address] [place], [place] [phone] Brittnee Hanna MD [address] [place], [place] [phone] Mild intermittent asthma without complication Social History [...] 11/07/2024 1:00 PM EDT Office Visit [facility] OPTOMETRY [address] [place] [phone] Martina Mancia OD [address] [place] [address] documented as of this encounter Goals Goal [...] documented as of this encounter Care Teams Manager Pet Relationship Specialty Start Date End Date Brittnee Hanna MD [address] [place] [address] PCP - General Family Medicine 08/17/18 Di Hyde, ShabbirD [address] [place] [address] Pharmacist Internal Medicine 01/06/23 08/31/24 Martina Mancia OD [address] [place] [address] Optometry 07/26/24 Donna Sutton Fish And Wildlife Scientific AidClinical Specialist Medical Device 05/06/24 documented as of this encounter
== END 2024-11-01 15:13 | disposition home or self-care (01) ==
LOC: HO.ENCR 14:23
PROVIDERS: PCP Family Medicine; Visit Provider Physician Assistant Medical
DX: E11.9 Type 2 diabetes mellitus without complications (principal); Z79.4 Long term (current) use of insulin

== ENCOUNTER → 2024-11-01 14:22 | Outpatient (BNVA) | payer MEDICAID, SELFPAY | PROVIDERS: PCP Family Medicine; Visit Provider Physician Assistant Medical | DX: E11.9 Type 2 diabetes mellitus without complications (principal); Z79.4 Long term (current) use of insulin; Z79.85 Long-term (current) use of injectable non-insulin antidiabetic drugs | CPT/HCPCS: 82947; 99212 ==

== ENCOUNTER 2024-11-30 14:13 | Outpatient (AMB) | payer MEDICAID, SELFPAY ==
--- NOTE | 2024-11-30 15:02 | MHC.AMDMED ---
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 Stock Ranch Supervisor Language: Gasket Former Name: [id number] Accompanied by: Self / Same As Patient Allergies shellfish derived [SHELLFISH DERIVED] Allergy (Severe, Verified 11/01/24 14:36) Swelling Penicillins Allergy (Mild, Verified 11/01/24 14:36) UNKNOWN - RXN CHILD naproxen [NAPROXEN] Allergy (Unknown, Verified 11/01/24 14:36) CAN'T TAKE PER HER LOWERATOR OPERATOR seasonal allergies Allergy (Mild, Uncoded 11/01/24 14:36) Itchy Eyes HPI Comprehensive Diabetes Asmnt Most Recent Diabetes Results: Microalb/Creat Ratio 10.5 ug/mg cr (<30) 09/19/24 Cholesterol 142 mg/dL (<200) 09/19/24 HDL Cholesterol 37 mg/dL (>40) L 09/19/24 Triglycerides 209 mg/dL (<150) H 09/19/24 Creatinine 1.31 mg/dL (0.5-1.4) 10/21/24 Blood Urea Nitrogen 18 mg/dL (9-16) H 10/21/24 Sodium 133 mmol/L (135-145) L 10/21/24 Potassium 4.2 mmol/L (3.3-5.1) 10/21/24 Chloride 97 mmol/L (96-108) 10/21/24 Carbon Dioxide 27 mmol/L (22-29) 10/21/24 Calcium 10.3 mg/dL (8.4-10.2) H 10/21/24 AST 23 U/L (5-31) 09/19/24 ALT 27 U/L (0-31) 09/19/24 Total Protein 7.5 g/dL (6.5-8.0) 09/19/24 Albumin 4.1 g/dL (3.5-5.0) 09/19/24 [facility] Medical History (Updated 10/04/24 @ 10:38 by GEMA Mackey) Type II diabetes with alf use of insulin Symptomatic anemia GI bleed Diabetes Anxiety Depression Asthma History of heart attack CAD (coronary artery disease) Hypercholesteremia HTN (hypertension) Surgical History Stented coronary artery Hx of colonoscopy (04/11/14) Family History Father Diabetes Hypercholesteremia HTN (hypertension) Mother HTN (hypertension) Diabetes Hypercholesteremia Brother HTN (hypertension) Diabetes Social History Household Members: None Housing: House Do you presently have visiting nurse or other home services: Yes (VENDOR SPECIALIST) Alcohol intake: current Alcohol intake frequency: does not drink Patient Tobacco Use Status: Former Tobacco user service: No Current occupational status: disabled Assessment & Plan Assessment & Plan (1) Type II diabetes with alf use of insulin: Code(s): E11.9 - Type 2 diabetes mellitus without complications; Z79.4 - FDC (current) use of insulin Plan: Diabetes self-management education and support participation record Assessment/scale: 1= needs instructed? 2= needs review? 3= comprehend keep point? 4= demonstrates understanding/ competent? NC= Not Covered Topics Learning Objective: Initial visit Initial or post srvc Initial or post srvc Initial or post srvc Initial or post srvc Initial or post srvc Post srvc Comments Pre Edu-assessment/plan Outcome or reassess Outcome or reassess Outcome or reassess Outcome or reassess Outcome or reassess Outcome or reassess Diabetes pathophysiology 1 Healthy eating 1 Being active 1 Taking medication 1 Monitoring glucose 1 Acute complication 1 Chronic complicated 1 Lifestyle and healthy coping 1 Diabetes distress in support 1 ?Diabetes pathophysiology: ?Defined diabetes med identify own type of diabetes; list 3 options for treating diabetes Healthy eating: ?Described effect of type, amount and ?timing of food on blood glucose; list 3 methods for planning meal Being active: ?State effect of exercise on blood glucose level Taking medication: ?State effect of diabetes medications on diabetes; name diabetes medications taking, action and side effects Monitoring glucose: ?Identify recommended blood glucose targets and personal target Acute complication: ?List symptoms and treatment of hyper and hypoglycemia, DKA, sick day guidelines and guidelines for severe weather or situations of crisis and diabetes supply manage Chronic complication: ?To find the relationship of blood glucose levels to long-term complications of diabetes in screening and preventative measures Lifestyle and healthy coping: ?Described lifestyle and healthy coping strategies to rule out diabetes self-management Diabetes to stress and support: ?Recognize Diabetes to stress and be able to identified support options Learning objectives: The patient was provided with verbal and written education on the following topics as outlined below. The patient met all learning objectives and was able to verbalize understanding and provide teach back of education topics discussed . The patient was provided with the opportunity to ask questions and all questions were answered. Patient Assessment Assess patient education level/literacy/barriers, patient's last A1c on 10/04/2024 12.7%, patient reports she was diagnosed with diabetes approximately 12 years ago. Patient stated today's visit that she was told by her doctor that her diabetes is genetic which is why her glucose levels run so high. She is currently prescribed Lantus 36 units daily, although reports that she only takes Lantus 32 units because if she takes 36 units her glucose goes low Humalog 14 units prior to meal Started Trulicity approximately 4 weeks ago 0.75 mg weekly, reports that the day after she takes Trulicity she feels nauseous and has diarrhea. Asked patient at today's visit if she would like to continue medication she agreed message sent to PA for prescription to be sent to patient's pharmacy. Patient denies missing medication Patient missed last appointment with Endocrine PA instructed patient to reschedule appointment What is Diabetes? Pathophysiology How the body produces and uses insulin Identify type of DM Risk factors Signs of Diabetes Brief overview of Diabetes Management Monitoring blood sugar Following a meal plan Regular exercise Maintaining a healthy weight Taking medication as needed Members of the care team (PCP, RN, MA, RD, CDE, carpenter) Blood glucose monitoring When/how often to test Target blood sugar ranges Patient uses [employer] Ric 3 with reader Patient's average glucose for the past 14 days 257 mg/dL Above 84% At target 16% Below target 0% Introduction to Nutrition Importance of healthy diet in managing DM Diet is personalized to individual preference Review patient?s regular diet/food preferences Who prepares meals/does food shopping/ Dining out?/ Barriers? How diet effects glucose Eating 3 balanced meals a day with small, healthy snacks between meals Review food groups Carbohydrates: What is a carbohydrate/Which food/food groups are considered carbohydrates Effect of carbohydrates on blood glucose Portion sizes Reading food labels Basic carb counting (if applicable per nursing assessment) Plate method Meal planning Recommendations: Follow plate method, consistent carbs and read nutritional labels. Smart Goal: Patient will identify carbohydrates in current meal plan for next visit Educational Materials: The patient was provided with the following written educational materials: Planning Healthy Meals Handout Patient Response to instructions: Comprehension of Instructions: Fair Readiness to make changes: Pre-Contemplation How confident they feel about making changes: Poor Portions of this note were created using voice recognition software, please excuse any words or phrases that may have been misinterpreted. Patient Instructions: Follow-up with perioperative educator in 2 months Coding Level of Care Code Est Pt Level 1 (31729) Diagnoses Type II diabetes with extermination inspector use of insulin E11.9; Z79.4
--- OUTSIDE RECORDS SUMMARY | 2024-11-30 16:57 | XMS_ITS | Encounter Summary ---
Author Organization [facility] Address [address] [place] [address] Care Team Providers Care Drafting Layout Man Name Role Phone Brittnee Hanna MD Primary Care Provider [phone]- [phone] Di Hyde PharmD Unavailable Martina Mancia OD Unavailable [phone] Encounter Details Date Type Department Care Team (Late st Contact Info) Description 08/25/2022 Orders Only [facility] [address] [place] [address] Jeana Vital LPN Social History Tobacco Use Types Packs/Day Years Used Date Smoking Tobacco: Never Assessed Comments Unknown Sex and Gender Information Value Date Recorded Sex Assigned at Female 06/16/2022 10:18 AM EDT Legal Sex Female 10:18 AM EDT Gender Identity Female 06/16/2022 10:18 AM EDT Sexual Orientation Straight 06/16/2022 10 :18 AM EDT documented as of this encounter Plan of Treatment Not on file documented as of this encounter Procedures Procedure Name Priority Date/Time Associated Diagnosis Comments HEPATIC FUNCTION PANEL Routine 07/21/2023 12:47 PM EST documented in this encounter Results * (ABNORMAL) Hepatic Function Panel (07/21/2023 12:47 PM EST) Bilirubin, Total 0.3 0.0 - 1.0 mg/dL [facility] Bilirubin, Direct 0.1 0.0 - 0.5 mg/dL [facility] Aspartate Amino Transferase 18 5 - 31 U/L [facility] Alanine Aminotransferase 33(H) 0 - 31 U/L [facility] Total Protein 7.4 6.5 - 8.0 g/dL [facility] Albumin Level 4.3 3.5 - 5.0 g/dL [facility] Alkaline Phosphatase 142(H) 39 - 117 U/L [facility] 07/21/2023 12:4 7 PM EST 07/21/2023 3:59 PM EST us Brittnee Hanna MD LAB BLOOD ORDERABLES Final Result [facility] [address] [place] [address] [phone] documented in this encounter Visit Diagnoses Not on filedocumented in this encounter Care Teams Drafting Layout Man Relationship Specialty Start Date End Date Brittnee Hanna MD [address] [place] [address] PCP - General Family Medicine 08/17/18 Di Hyde PharmD [address] [place] [address] Pharmacist Internal Medicine 01/06/23 08/31/24 Martina Mancia OD [address] [place] [phone] Optometry 07/26/24 Donna Sutton Cheese ProcessorOptical Effects Layout Person 05/06/24 Bety Benson NP [facility] Endocrinology Endocrinology 11/04/24 documented as of this encounter
--- OUTSIDE RECORDS SUMMARY | 2024-11-30 16:57 | XMS_ITS | Encounter Summary ---
Author Organization [facility] Address [address] [place] [address] Care Team Providers Care Deckhand Tuna Boat Name Role Phone Brittnee Hanna MD Primary Care Provider +- [phone] Di Hyde PharmD Unavailable Martina Mancia OD Unavailable [phone] Reason for Visit * Reason Comments Med Refill Encounter Details Date Type Department Care Team (Late st Contact Info) Description 02/18/2023 Refill [facility] [address] [place] [address] Brittnee Hanna MD [address] [place], [place] [phone] Type 2 diabetes mellitus with other circulatory complication, with long-term current use of insulin ([facility]) Social History Tobacco Use Types Packs/Day Years [...] documented in this encounter Plan of Treatment Not on file documented as of this encounter Goals Goal Patient Goal Type Associated Problems Recent Progress Patient-Stated? Author Hemoglobin A1c < 7 Result Component 11.9( 4 2:31 PM EST) No Di Hyde, PharmD documented as of this encounter Visit Diagnoses Diagnosis Type 2 diabetes mellitus with other circulatory complication, with long-term current use of insulin ([facility]) documented in this encounter Additional Health Concerns Assessment Noted Time PHQ-9 Depression Total Score: 023 9:47 AM EDT documented as of this encounter Care Teams Deckhand Tuna Boat Relationship Specialty Start Date End Date Brittnee Hanna MD [address] [place] [address] PCP - General Family Medicine 08/17/18 Di Hyde, PharmD [address] [place] [address] Pharmacist Internal Medicine 01/06/23 08/31/24 Martina Mancia OD [address] [place] [phone] Optometry 07/26/24 Donna Sutton Pot RelinerFlower Stripper 05/06/24 Bety Benson NP [facility] Endocrinology Endocrinology 11/04/24 documented as of this encounter
--- OUTSIDE RECORDS SUMMARY | 2024-11-30 16:57 | XMS_ITS | Encounter Summary ---
Author Organization [facility] [facility] Address [address] [place] [address] Care Team Providers Care Portable Machine Sander Name Role Phone Brittnee Hanna MD Primary Care Provider +- [phone] Di Hyde PharmD Unavailable Martina Mancia OD Unavailable [phone] Encounter Details Date Type Department Care Team ([facility] st Contact Info) Description 04/27/2024 Abstract [facility] [address] [place] [address] Brittnee Hanna MD [address] [place], [place] [phone] Social History Tobacco Use Types Packs/Day Years [...] documented as of this encounter Care Teams Portable Machine Sander Relationship Specialty Start Date End Date Brittnee Hanna MD [address] [place] [address] PCP - General Family Medicine 08/17/18 Di Hyde, PharmD [address] [place] [address] Pharmacist Internal Medicine 01/06/23 08/31/24 Martina Mancia OD [address] [place] [address] Optometry 07/26/24 Donna Sutton Sales DesignerGroup Care Worker 05/06/24 Bety Benson NP [facility] Endocrinology Endocrinology 11/04/24 documented as of this encounter
--- OUTSIDE RECORDS SUMMARY | 2024-11-30 16:57 | XMS_ITS | Encounter Summary ---
Author Organization [email or web address] [facility] Address [address] [place] [address] Care Team Providers Care Dietetic Intern Name Role Phone Brittnee Hanna MD Primary Care Provider +- [phone] Di Hyde PharmD Unavailable Martina Mancia OD Unavailable [phone] Encounter Details Date Type Department Care Team ([facility] st Contact Info) Description 12/17/2022 Abstract [facility] [address] [place] [address] Brittnee Hanna MD [address] [place] [address] Social History Tobacco Use Types Packs/Day Years [...] on file documented as of this encounter Visit Diagnoses Not on filedocumented in this encounter Additional Health Concerns Assessment Noted Time PHQ-9 Depression Total Score: 0 09/22/19 23 9:47 AM EST documented as of this encounter Care Teams Dietetic Intern Relationship Specialty Start Date End Date Brittnee Hanna MD [address] [place] [address] PCP - General Family Medicine 08/17/18 Di Hyde PharmD [address] [place], [place] [phone] Pharmacist Internal Medicine 01/06/23 08/31/24 Martina Mancia OD [address] [place] [phone] Optometry 07/26/24 Donna Sutton Advanced Practice ProfessionalSafety Fire Boss 05/06/24 Bety Benson NP [facility] Endocrinology Endocrinology 11/04/24 documented as of this encounter
--- OUTSIDE RECORDS SUMMARY | 2024-11-30 16:57 | XMS_ITS | Encounter Summary ---
Author Organization [employer] Address [address] [place] [address] Care Team Providers Care Founder & Ceo Name Role Phone Brittnee Hanna MD Primary Care Provider [phone] Di Hyde PharmD Unavailable [phone] Martina Mancia OD Unavailable Reason for Visit * Reason Onset Date Comments triage 07/21/2022 Encounter Details Date Type Department Care Team ([facility] st Contact Info) Description 07/21/2022 Telephone [facility] MED[facility]INE [address] [place] [address] Brittnee Hanna MD [address] [place], [place] [phone] triage Social History Tobacco Use Types Packs/Day [...] and depression since losing MH services with [facility]. Per pt has not had any follow up with therapist or psychiatrist. Was supposed to have an appt on 06/15 but when called to r/s was never answered. Has been without meds. Per pt denies any SI/HI. Just increased anxiety. Pt advised that no appts in clinic tomorrow. Pt to come into [facility] tomorrow to speak with on site [facility] clinician and see if [facility] provider (advised cannot guarantee Dr. Hanna) [...] accepted this outcome Please contact pt at [phone] speaks Stateless documented in this encounter Plan of Treatment Not on file documented as of this encounter Visit Diagnoses Not on filedocumented in this encounter Care Teams Founder & Ceo Relationship Specialty Start Date End Date Brittnee Hanna MD [address] [place] [address] PCP - General Family Medicine 08/17/18 Di Hyde, ShabbirD [address] [place] [address] Pharmacist Internal Medicine 01/06/23 08/31/24 Martina Mancia OD [address] [place] [address] Optometry 07/26/24 Donna Sutton Sr. Merchandise PlannerDrapery Hanger 05/06/24 Bety Benson NP [facility] Endocrinology Endocrinology 11/04/24 documented as of this encounter
--- OUTSIDE RECORDS SUMMARY | 2024-11-30 16:57 | XMS_ITS | Encounter Summary ---
Author Organization [employer] Address [address] [place] [address] Care Team Providers Care Fish Net Stringer Name Role Phone Brittnee Hanna MD Primary Care Provider [phone] Di Hyde PharmD Unavailable Martina Mancia OD Unavailable Reason for Visit * Reason Comments Med Refill Encounter Details Date Type Department Care Team (Late st Contact Info) Description 05/12/2023 Refill [facility]EDS [address] [place] [address] Cipriano Campa MD [address] [facility] [place] [address] Type 2 diabetes mellitus with other circulatory complication, with long-term current use of insulin ([facility]) Social History Tobacco Use Types Packs/Day [...] of insulin ([facility]) documented in this encounter Additional Health Concerns Assessment Noted Time PHQ-9 Depression Total Score: 21 023 9:47 AM EDT documented as of this encounter Care Teams Fish Net Stringer Relationship Specialty Start Date End Date Brittnee Hanna MD [address] [place] [address] PCP - General Family Medicine 08/17/18 Di Hyde, ShabbirD [address] [place] [address] Pharmacist Internal Medicine 01/06/23 08/31/24 Martina Mancia OD [address] [place] [phone] Optometry 07/26/24 Donna Sutton Grade And Center MarkerIronworker Apprentice 05/06/24 Bety Benson NP [facility] Endocrinology Endocrinology 11/04/24 documented as of this encounter
--- OUTSIDE RECORDS SUMMARY | 2024-11-30 16:57 | XMS_ITS | Encounter Summary ---
Author Organization [employer] Address [address] [place] [address] Care Team Providers Care Cyber Reverse Engineer Name Role Phone Brittnee Hanna MD Primary Care Provider [phone] GavinoMartina OD Unavailable [phone] Encounter Details Date Type Department Care Team ([facility] [address] Contact Info) Description 11/01/2024 Orders Only [facility] MEDICINE [address] [place] [address] Nguyen Orourke MD [address] [place] [address] Type 2 diabetes mellitus with other circulatory complication, with long-term current use of insulin ([facility]) Social History Tobacco Use Types Packs/Day Years [...] with long-term current use of insulin ([facility]) documented in this encounter Additional Health Concerns Assessment Noted Time PHQ-9 Depression Total Score: 15 024 10:35 AM EDT documented as of this encounter Care Teams Cyber Reverse Engineer Relationship Specialty Start Date End Date Brittnee Hanna MD [address] [place] [address] PCP - General Family Medicine 08/17/18 Martina Mancia OD [address] [place] [phone] Optometry 07/26/24 Donna Sutton Laboratory Sample CarrierSupervisor Grips 05/06/24 Bety Benson NP [facility] Endocrinology Endocrinology 11/04/24 documented as of this encounter
--- OUTSIDE RECORDS SUMMARY | 2024-11-30 16:57 | XMS_ITS | Clinical Summary ---
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 Continuous Blood Gluc Hospice Rn (FreeStyle Ric 2 [place]) device Use as directed 1 each 023 Active Continuous Glucose Sensor (FreeStyle Ric 2 Sensor) miscIndications :Type 2 diabetes mellitus with hyperglycemia, with long-term current use of insulin ([facility]) USE DIRECTED TO TEST BLOOD SUGAR CHANGE EVERY 14 DAYS 2 each 024 Active amLODIPine (Norvasc) 5 MG tabletIndicatio ns:Essential hypertension Take 1 tablet (5 mg) by mouth Once per day. 30 tablet 11 024 2024 Active atorvastatin (Lipitor) 80 MG tabletIndicatio ns:Type 2 diabetes mellitus with hyperglycemia, with long-term current use of insulin ([facility]),Dysli pidemia Take 1 tablet (80 mg) by mouth at bedtime. 90 tablet 3 024 Active tiotropium (Spiriva HandiHaler) 18 MCG inhalation capsuleIndicati ons:Chronic obstructive pulmonary disease, unspecified COPD type ([facility]),Mild intermittent asthma without complication Place 1 capsule (18 mcg) into inhaler and inhale in the morning. 30 capsule Active lisinopril 20 MG tabletIndicatio ns:Essential hypertension Take 1 tablet (20 mg) by mouth in the morning. 90 tablet 3 024 Active isosorbide mononitrate ER (Imdur) 30 MG 24 hr tabletIndicatio ns:Essential hypertension TAKE 1 TABLET BY MOUTH EVERY MORNING 90 tablet 024 Active TRUEplus Lancets 33G miscIndications :Type 2 diabetes mellitus with hyperglycemia, with long-term current use of insulin ([facility]) TEST BLOOD SUGAR FIVE TIMES DAILY 200 each Active Blood Glucose Monitoring Suppl (Senstore Lite) w/Device kitIndications: Type 2 diabetes mellitus with hyperglycemia, with long-term current use of insulin ([facility]) TEST BLOOD SUGAR FIVE TIMES DAILY DIRECTED 1 Active OLANZapine (ZyPREXA) 7.5 MG tabletIndicatio ns:Recurrent major depressive disorder, in remission ([facility]) TAKE 1 TABLET BY MOUTH AT BEDTIME 30 tablet Active aspirin (Aspirin Adult Low Strength) 81 MG EC tabletIndicatio ns:Coronary artery stenosis Take 1 tablet (81 mg) by mouth in the morning. 90 tablet 3 Active metoprolol succinate XL (Toprol-XL) 50 MG 24 hr tabletIndicatio ns:Essential hypertension Take 1 tablet (50 mg) by mouth in the morning. Do not crush or chew. 90 tablet 024 Active Alcohol Swabs (Alcohol Prep) 70 % padsIndications :Type 2 diabetes mellitus with hyperglycemia, with long-term current use of insulin ([facility]) USE BEFORE TEST BLOOD SUGAR AND INSULIN 100 each Active glucose 4 g chewable tabletIndicatio ns:Type 2 diabetes mellitus with hyperglycemia, with long-term current use of insulin ([facility]) Chew 4 tablets (16 g) if needed for low blood sugar. 50 tablet 024 Active glucagon (Baqsimi Two Pack) 3 MG/DOSE nasal powderIndicatio ns:Type 2 diabetes mellitus with hyperglycemia, with long-term current use of insulin ([facility]) For low blood sugar emergencies, insert [...] FOR ALLERGIES 90 tablet 3 024 Active glucose blood (FreeStyle Precision Freeman Test) test stripIndication s:Type 2 diabetes mellitus with hyperglycemia, with long-term current use of insulin ([facility]) TEST BLOOD SUGAR UP TO FOUR TIMES DAILY NEEDED 100 strip 025 Active Ferrous Sulfate (iron) 325 (65 Fe) MG tabletIndicatio ns:Anemia, unspecified type TAKE 1 TABLET BY MOUTH EVERY OTHER DAY IN THE MORNING 45 tablet 025 Active Icosapent Ethyl (Vascepa) 1 g capsuleIndicati ons:Dyslipidemi a TAKE 2 CAPSULES BY MOUTH TWICE DAILY IN THE MORNING AND EVENING 360 capsule 025 Active acetone, urine, test stripIndication s:Type 2 diabetes mellitus with hyperglycemia, with long-term current use of insulin ([facility]) Use as directed to check for ketones [...] AFTER USING. 60 each 5 025 Active Dulaglutide 0.75 MG/0.5ML solution auto-injector Inject under the skin. Active insulin lispro (HumaLOG) 100 UNIT/ML injectionIndica tions:Type 2 diabetes mellitus with other circulatory complication, with long-term current use of insulin ([facility]) Administer 18 units daily before each meal 15 mL 11 025 Active insulin glargine (Lantus SoloStar) 100 UNIT/ML penIndications: Type 2 diabetes mellitus with other circulatory complication, with long-term current use of insulin ([facility]) INJECT 42 UNITS SUBCUTANEOUSLY AT BEDTIME. If FBG > 180, increase to 46 units after 3 days. 3 mL 1 025 Active albuterol (Ventolin HFA) 108 (90 Base) MCG/ACT inhalerIndicati ons:Mild intermittent asthma without complication INHALE 2 PUFFS BY MOUTH EVERY 4 HOURS NEEDED FOR WHEEZING OR SHORTNESS OF BREATH 18 g 025 Active insulin lispro (HumaLOG) 100 UNIT/ML injectionIndica tions:Type 2 diabetes mellitus with other circulatory complication, with long-term current use of insulin ([facility]) INJECT SUBCUTANEOUSLY DIRECTED PER SLIDING SCALE: BLOOD SUGAR <150 = 0U, 151-200 = 2U, 201-250 = 4U, 251-300 = 6U, 301-350 = 8U, >350 = 10U AND CALL DOCTOR 15 mL 11 024 2024 Discontinued albuterol (Ventolin HFA) 108 (90 Base) MCG/ACT inhalerIndicati ons:Mild intermittent asthma without complication INHALE 2 PUFFS BY MOUTH EVERY 4 HOURS NEEDED FOR WHEEZING OR SHORTNESS OF BREATH 18 g 1 024 2024 Discontinued(R eorder (will not trigger notification to Pharmacy)) insulin glargine (Lantus SoloStar) 100 UNIT/ML penIndications: Type 2 diabetes mellitus with other circulatory complication, with long-term current use of insulin ([facility]) INJECT 40 UNITS SUBCUTANEOUSLY AT BEDTIME 024 2024 Discontinued Active Problems Patient Care Coordination No te Formatting of this note migh t be different from the original. Enrolled in [facility] DM clinic with Di Hyde, ShabbirD, CDCES Problem Noted Date Diagnosed Date Unintentional [...] for OP and psychiatry services in the [place] area. clinician provided contact information for [facility] in [place]. Dizziness 12/30/2023 Overview (12/31/2023): Pt continues to [...] hypotension, migraine or seizure. CT on brain 2018 was unremarkable but pt was not symptomatic [...] as pharmacomtherapy, [facility] smoking cessation group, and [facility] pharmacy smoking cessation clinic Discussed USPSTF [...] as pharmacomtherapy, [facility] smoking cessation group, and [facility] pharmacy smoking cessation clinic Discussed USPSTF [...] Encouraged smoking cessation resources such as pharmacomtherapy, [facility] smoking cessation group, and [facility] pharmacy smoking cessation clinic Discussed USPSTF [...] due after 07/27/25 -eye care facilitated by [facility] on 05/20/2023 -dental home is [facility], [facility] -health care proxy filed 04/07/24 Assessment & Plan (07/27/2024 2:57 PM EST): -next physical exam due after 07/27/25 -eye care facilitated by [facility] on 05/20/2023 -dental home is [facility], [facility] -health care proxy filed 04/07/24 Assessment & Plan (04/07/2024 10:24 AM EDT): -next physical exam due after 06/10/2024 -eye care facilitated by [facility] on 05/20/2023 -dental home is [facility], [facility] -health care proxy filed 04/07/24 Assessment & Plan (06/10/2023 2:19 PM EDT): -next physical exam due after 06/10/2024 -eye care facilitated by [facility] on 05/20/2023 -dental home is Anemia [...] strict ED precautions. -Referral to re-establish with [facility] placed Assessment & Plan (09/22/2022 [...] for OP and psychiatry services in the [place] area. clinician provided contact information for [facility] in [place]. Assessment & Plan (01/08/2023 10:29 AM EDT): [...] services. ?? PLAN: 1. Follow up with [facility]: Not recommended for follow-up 2. Patient goal is to engage in behavioral health services. 3. Behavioral Recommendations a. Practice using a different coping skill on a daily basis b. Once services are established, attend therapy and medication management appointments c. Patient will reach out to a [facility] during next PCP appointment if needed Assessment & Plan (07/22/2022 2:55 PM EST): Most likely exacerbated by lack of meds >1m. Called pharmacy and verify med dose, sent Rx for Olanzapine 7.5mg I will email [facility] to make an appt with Dr Quinn [...] long-term current use of insulin 03/25/2012 Overview (11/04/2024): Diabetes is not controlled. Rereferred to endo and restablished 10/2024 at [facility] . On Freestyle Ric 3 Lab Results Component Value Date HGBA1C 11.9 (A) 07/27/2024 HGBA1C 12.6 (A) 04/07/2024 HGBA1C 12.2 (A) 12/30/2023 Lab Results Component Value Date MICROALBUR 17.0 09/19/2024 CREATININE 1.31 10/21/2024 -On Asprin 81 daily for secondary prevention [...] to Cardiology 07/27/24 -referral to endocrinology 09/01/24 -endo note from 11/01/24 Increase Lantus from 36 to 42 units nightly. If fasting blood sugars in the morning are still over 180, increase to 46 units after 3 days. Increase insulin lispro to 18 units before meals. Start Trulicity 0.75 mg weekly. Assessment & Plan (2024 2:13 PM EST): [...] glucose monitor. Needs sensors. 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 Lab Results Component [...] CDTM. Lab Results Component Value Date HGBA1C 11.5 [...] admitted on 03/17/2022 for DKA (diabetic ketoacidosis) ([facility]) [E11.10];Acute cystitis without hematuria [N30.00] Results: [...] admitted on 03/17/2022 for DKA (diabetic ketoacidosis) ([facility]) [E11.10];Acute cystitis without hematuria [N30.00] Results: [...] Encounters Date Type Department Care Team Description 11/08/2024 Telephone [facility] [address] [place] [phone] Brittnee Hanna MD Call Back Request 11/07/2024 1:00 PM EDT Office Visit [facility] [address] [place], [place] [phone] Gavino, Martina, OD Diabetes type 2, no ocular involvement (CMS/HCC) (Primary Dx); Nuclear senile cataract of both eyes; White without pressure of peripheral retina of both eyes; Dry eyes; Presbyopia 11/07/2024 Travel 11/02/2024 Refill [facility] [address] [place] [address] Brittnee Hanna MD Mild intermittent asthma without complication 11/01/2024 Orders Only [facility] [address] [place] [address] Nguyen Orourke MD Type 2 diabetes mellitus with other circulatory complication, with long-term current use of insulin ([facility]) 11/01/2024 Orders Only GENERIC EXTERNAL DATA DEPARTMENT Provider, Generic External Data 10/28/2024 Population Health Risk Score [facility] () Department [address] [phone] Provider, Population Health Generic 10/21/2024 Telephone [facility] [address] [place] [address] Brittnee Hanna MD Critical Lab 10/16/2024 Refill [facility] [address] [place] [address] Brittnee Hanna MD Mild intermittent asthma without complication 10/06/2024 Orders Only GENERIC EXTERNAL DATA DEPARTMENT Provider, Generic External Data 10/06/2024 Telephone [facility] [address] [place] [address] Cipriano Campa MD Results 10/04/2024 Telephone [facility] [address] [place] [address] Di Hyde, PharmD 10/04/2024 Orders Only GENERIC EXTERNAL DATA DEPARTMENT Provider, Generic External Data 10/03/2024 Refill [facility] [address] [place] [address] Brittnee Hanna MD Mild intermittent asthma without complication 09/21/2024 Telephone [facility] [address] [place] [address] Brittnee Hanna MD 09/20/2024 Telephone [facility] [address] [place] [address] Flory Kaufman, CHAD 09/19/2024 Refill [facility] [address] [place] [address] Di Hyde, PharmD Essential hypertension 09/19/2024 Telephone [facility] [address] [place] [address] Leilani Agarwal, CHAD Results 09/19/2024 Orders Only [facility] [address] [place], [place] [phone] Brittnee Hanna MD Hypokalemia (Primary Dx) 09/19/2024 Orders Only GENERIC EXTERNAL DATA DEPARTMENT Provider, Generic External Data 09/19/2024 Telephone [facility] [address] [place] [phone] Brittnee Hanna MD Referral 09/12/2024 Refill [facility] [address] [place], [place] [phone] Brittnee Hanna MD 09/07/2024 Orders Only [facility] [address] [place], [place] [phone] Brittnee Hanna MD Type 2 diabetes mellitus with hyperglycemia, with long-term current use of insulin ([facility]) (Primary Dx); Unintentional weight loss 09/07/[address] [phone] Di Hyde, ShabbirD Appointment Request from Last 3 Months Immunizations [...] 07/27/2024 2:27 PM EST Plan of Treatment Health Maintenance Due Date Last Done Comments CT Colonography 1963 FIT DNA/Cologuard 1963 FIT 1963 FOBT 1965 Sigmoidoscopy 1963 Zoster Vaccines (1 of 2) 2013 RSV Patients and Patients Aged 60 years or older (1 - Risk 60-74 years 1-dose series) 2023 Depression Monitoring 10/08/2024 04/07/2024, 024 Diabetes: Hemoglobin A1C 10/25/2024 024, 04/07/2024, 12/30/2023, Additional history exists SDOH Screening 12/29/2024 12/30/2023 Depression Screening 04/07/2025 04/07/2024, 04/07/20 24 Mammogram 07/24/2025 07/24/2023, 05/18, 06/14/2018 Alcohol/Substance Use Screening 07/27/2025 07/27/2024 COVID-19 Vaccine ( season) 2025 09/04/2022, 05/16/2022, 05/08/2021 Postponed from 04/17/2024 (Patient Refused) Diabetes: Foot Exam 07/27/2025 07/27/2024, 07/27/2024, 07/27/2024, Additional history exists Diabetes: Urine Protein Screening 09/19/2025 09/19/2024, 07/21/2023, 06/05/2022, Additional history exists Lipid Panel 09/19/2025 09/19/2024, 0210/2024, 04/05/2024, Additional history exists Tobacco Screening 11/21/2025 11/21/2024 Eye Exam 11/07/2026 11/07/2024, 10/16, 11/07/2024, Additional history exists Cervical Cancer Screening 05/16/2027 [...] 2:31 PM EST) No Di Meyers, PharmD Procedures Procedure Name Priority Date/Time Associated Diagnosis Comments OCT, RETINA - OU - BOTH EYES Routine 11/07/2024 3:36 PM EDT Nuclear senile cataract of both eyes GLUCOSE, WHOLE BLOOD Routine 11/01/2024 2:44 PM [...] with long-term current use of insulin (CMS/HCC) GLUCOSE, WHOLE BLOOD Routine 10/04/2024 10:33 AM [...] Recently Relevant to Health Maintenance Results * OCT, Retina - OU - Both Eyes (11/07/2024 3:36 PM EDT) Narrative Martina Mancia, OD - 11/22/2024 2:44 PM EDT Test Not Needed us Martina Mancia OD OPHTH TOMOGRAPHY Final Result * (ABNORMAL) Glucose, Whole Blood (11/01/2024 2:44 PM EDT) Only the most recent of2 resultswithin the time period is included. Glucose, Whole Blood 241(H) 60 - 115 mg/dL [facility] Comment:METER #: [id number] 5Testing performed in the Endocrinology Department [address] , [address], [facility]. 11/01/2024 2:44 PM EDT 11/01/2024 2:48 PM EDT us Generic External Data Provider LAB BLOOD ORDERAB LES Final Result [facility] [address] [place] [phone] * (ABNORMAL) Basic Metabolic Panel (10/21/2024 10:30 AM EST) Only the most recent of2 resultswithin the time period is included. Pathologist [facility] Sodium 133(L) 135 - 145 mmol/L [facility] Potassium 4.2 3.3 - 5.1 mmol/L [facility] Chloride 97 96 - 108 mmol/L [facility] Carbon Dioxide 27 22 - 29 mmol/L [facility] Anion Gap 13 12 - 20 [facility] Urea Nitrogen (BUN) 18(H) 9 - 16 mg/dL [facility] Creatinine, Serum 1.31 0.5 - 1.4 mg/dL [facility] Estimated Glomerular Filt Rate 41 [facility] Comment:Chronic Kidney Disea se: Estimated GFR < 60 mL/min/1.89k7Ocdzgo Kidney Disease: Estimated GFR < 15 mL/min/1.73m2 Glucose 465(HH) 60 - 115 mg/dL [facility] Comment:Critical value for t est(s): GLUR Results [facility] by: SETH Espinal RN Person calling: ALEXI Date:10/21/2024 Time:12:50 Calcium 10.3(H) 8.4 - 10.2 mg/dL [facility] Blood Venous blood specimen / Unknown 10/21/2024 10:30 AM EST 10/21/2024 11:30 AM EST us Cipriano Ramirez MD LAB BLOOD ORDERABLES Final Result [facility] [address] [place] [phone] * Glutamic Acid Decarboxylase 65 Antibody (10/06/2024 1:46 PM EST) Glutamic acid decarboxylase Ab <5 <5 IU/mL [facility] Comment:This test was perfor med using the GAD65 WIN method,which is standardized against the Internationalreference preparation 97/550.THIS TEST WAS PERFORMED AT:[email or web address] [place] [id number] GEIGER MD,PHD 10/06/2024 1:46 PM EST 10/06/2024 1:46 PM EST us Generic External Data Provider LAB BLOOD ORDERAB LES Final Result Performing Organization Address [facility]/ZIP Co de Phone Number [facility] [address] [place] [phone] * C-Peptide (10/06/2024 1:46 PM EST) Pathologist [facility] C-Peptide 1.37 0.80 - 3.85 ng/mL [facility] Comment:THIS TEST WAS PERFOR MED AT:[email or web address] [address] [id number] LANDERS MD 10/06/2024 1:46 PM EST 10/06/2024 1:46 PM EST Generic External Data Provider LAB BLOOD ORDERAB LES Final Result Performing Organization Address [facility] Co de Phone Number [facility] [address] [place] [phone] * Islet Cell Antibody Screen W/Reflex to Titer (10/06/2024 1:46 PM EST) [facility] Islet Cell Antibody Screen NEGATIVE NEGATIVE [facility] Comment:This test was develo ped and its analytical performancecharacteristics have been determined by [employer].It has not been cleared or approved by FDA. This assay hasbeen validated pursuant to the CLIA regulations and is usedfor clinical purposes.THIS TEST WAS PERFORMED AT:[email or web address] [place] [address]VEUTXBART ABBASI MD,PHD,CRISTI Islet Cell Antibody Titer TNP [facility] 10/06/2024 1:46 PM EST 10/06/2024 1:46 PM EST Generic External Data Provider LAB BLOOD ORDERAB LES Final Result Performing Organization Address City/[facility]/ZIP Co de Phone Number [facility] [address] [place] [phone] * Albumin, Random Urine W/Creatinine (09/19/2024 10:00 AM EST) Pathologist [facility] Creatinine, Urine 161.00 mg/dL [facility] Microalbumin Urine 17.0 mg/L [facility] Microalbum Creatinine Ratio Ur 10.5 <30 ug/mg cr [facility] Comment:Albumin/Creatinine R atio Reference Ranges: Normal: < 30 ug/mg creatinine Microalbuminuria: 30 - 300 ug/mg creatinineClinical Albuminuria: > 300 ug/mg creatinine Urine 09/19/2024 10:0 0 AM EST 09/19/2024 11:51 AM EST Brittnee Hanna MD LAB URINE ORDERABLES Final Result [facility] [address] [place] [phone] * (ABNORMAL) CBC auto differential (09/19/2024 10:00 AM EST) Pathologist [facility] White Blood Count 7.1 4.8 - 10.8 X10*3/uL [facility] Red Blood Count 4.14(L) 4.20 - 5.50 X10*6/uL [facility] Hemoglobin 12.1 12.0 - 16.0 g/dl [facility] Hematocrit 35.6(L) 37.0 - 47.0 % [facility] Mean Corpuscular Volume 86.0 80.0 - 98.0 fL [facility] Mean Corpuscular Hemoglobin 29.2 27.0 - 33.0 pg [facility] Mean Corpuscular HGB Conc 34.0 31.0 - 35.0 g/dl [facility] Red Cell Distribution Width 11.5 11.0 - 16.0 % [facility] Platelet Count 436(H) 160 - 400 X10*3/uL [facility] Mean Platelet Volume 10.6 9.4 - 12.3 fL [facility] Neutrophils Percent Auto 69.4 45 - 73 % [facility] Imm Gran Pct Auto 0.3 0.0 - 0.4 % [facility] Lymphocytes Percent Auto 21.7 20 - 40 % [facility] Monocytes Percent Auto 6.3 2 - 11 % [facility] Eosinophils Percent Auto 2.0 0 - 4 % [facility] Basophils Percent Auto 0.3 0 - 2 % [facility] NRBC Pct Auto 0.0 0.0 - 0.2 /100WBC [facility] Neutrophils Absolute Auto 5.0 2.0 - 8.3 x10*3/uL [facility] Imm Gran Abs Auto 0.02 0.00 - 0.03 X10*3/uL [facility] Lymphocytes Absolute Auto 1.6 1.2 - 4.9 X10*3/uL [facility] Monocytes Absolute Auto 0.5 0.1 - 1.2 X10*3/uL [facility] Eosinophils Absolute Auto 0.1 0.0 - 0.4 X10*3/uL [facility] Basophils Absolute Auto 0.0 0.0 - 0.2 X10*3/uL [facility] NRBC Abs Auto 0.000 0.0 - 0.012 X10*3/uL [facility] 09/19/2024 10:0 0 AM EST 09/19/2024 11:32 AM EST us Generic External Data Provider LAB BLOOD ORDERAB LES Final Result [facility] [address] [place] [phone] * TSH (09/19/2024 10:00 AM EST) Thyroid Stimulating Hormone 0.76 0.32 - 4.0 uIU/mL [facility] Comment:TSH 3rd Generation ( [facility]) 09/19/2024 10:0 0 AM EST 09/19/2024 11:32 AM EST Generic External Data Provider LAB BLOOD ORDERAB LES Final Result Performing Organization Address [facility] Phone Number [facility] [address] [place] [phone] * (ABNORMAL) Glucose (09/19/2024 10:00 AM EST) Glucose Fasting 290(H) 60 - 99 mg/dL [facility] Comment:A fasting glucose of 126 mg/dl or greater on more than oneoccasion is considered diagnostic of diabetes. 09/19/2024 10:0 0 AM EST 09/19/2024 11:32 AM EST Generic External Data Provider LAB BLOOD ORDERAB LES Final Result Performing Organization Address [facility] Number [facility] [address] [place] [phone] * Hepatic Function Panel (09/19/2024 10:00 AM EST) Only the most recent of2 resultswithin the time period is included. Bilirubin, Direct 0.1 0.0 - 0.5 mg/dL [facility] 09/19/2024 10:0 0 AM EST 09/19/2024 11:32 AM EST Generic External Data Provider LAB BLOOD ORDERAB LES Final Result Performing Organization Address [facility] Phone Number [facility] [address] [place] [phone] * (ABNORMAL) Lipid Panel, Standard (09/19/2024 10:00 AM EST) Only the most recent of2 resultswithin the time period is included. Triglycerides 209(H) <150 mg/dL [facility] Comment:Desirable Triglyceri de: less than 150 mg/dLBorderline High Triglyceride 150-199 mg/dLHigh Triglyceride: 200-499 mg/dLVery High Triglyceride: greater than or equal to 5OO mg/dL Cholesterol 142 <200 mg/dL [facility] Comment:Desirable Cholestero l: less than 200 mg/dLBorderline High Cholesterol: 200-239 mg/dLHigh Cholesterol: greater than 239 mg/dL LDL Cholesterol Calculated 64 <100 mg/dL [facility] Comment:Desirable LDL: less than 100 mg/dLNear Optimal/Above Optimal LDL: 110- 129 mg/dLBorderline High LDL: 130-159 mg/dLHigh LDL: 160-189 mg/dLVery High LDL: greater than or equal to 190 mg/dL HDL Cholesterol 37(L) >40 mg/dL [facility] Comment:Desirable HDL: great er than 40 mg/dL Note: This HDL assay may give artificially low results in patients with liver disease. 09/19/2024 10:0 0 AM EST 09/19/2024 11:32 AM EST us Generic External Data Provider LAB BLOOD ORDERAB LES Final Result [facility] [address] [place] [address] [phone] * (ABNORMAL) Comprehensive Metabolic Panel (09/19/2024 10:00 AM EST) Sodium 134(L) 135 - 145 mmol/L [facility] Potassium 3.0(L) 3.3 - 5.1 mmol/L [facility] Chloride 99 96 - 108 mmol/L [facility] Carbon Dioxide 26 22 - 29 mmol/L [facility] Anion Gap 12 12 - 20 [facility] Urea Nitrogen (BUN) 18(H) 9 - 16 mg/dL [facility] Creatinine, Serum 1.23 0.5 - 1.4 mg/dL [facility] Estimated Glomerular Filt Rate 44 [facility] Comment:Chronic Kidney Disea se: Estimated GFR < 60 mL/min/1.81x1Kndvkh Kidney Disease: Estimated GFR < 15 mL/min/1.73m2 Glucose 288(H) 60 - 115 mg/dL [facility] Calcium 8.9 8.4 - 10.2 mg/dL [facility] Bilirubin, Total 0.5 0.0 - 1.0 mg/dL [facility] Aspartate Amino Transferase 23 5 - 31 U/L [facility] Alanine Aminotransferase 27 0 - 31 U/L [facility] Total Protein 7.5 6.5 - 8.0 g/dL [facility] Albumin Level 4.1 3.5 - 5.0 g/dL [facility] Alkaline Phosphatase 108 39 - 117 U/L [facility] 09/19/2024 10:0 0 AM EST 09/19/2024 11:32 AM EST us Generic External Data Provider LAB BLOOD ORDERAB LES Final Result [facility] [address] [place] [address] [phone] * (ABNORMAL) POCT HGB A1C (07/27/2024 2:31 PM EST) Hemoglobin A1C 11.9(A) 4.0 - 6.0 % QC Media Lot # [id number] Lot# Expiration Date [id number] Blood 07/27/2024 2:31 PM EST Brittnee Hanna MD POINT OF CARE TEST ENTER/E DIT ORDERABLES Final Result * BI Mammogram Screening Tomosynthesis Bilateral (07/24/2023 3:39 PM EST) Anatomical Region Laterality Modality Breast Bilateral Mammography 07/24/2023 3:39 PM EST Narrative 08/12/2023 3:43 AM EST ? [facility] ? [address] ?[place] [address] ? Mammography Report ? Signed ? Patient: Durant Sary,Cynthia ?MR#: [id number] ?? [id number] ? : 1965 ?Acct:[id number] ? Age/Sex: 57 / F ?ADM Date: 12/08/23 ? Loc: HO.MAMMO ? Attending Dr: Brittnee Hanna MD ? Ordering Physician: Brittnee Hanna MD ?Results: 1N ?? egative ? Date of Service: 07/24/23 ?Follow Up: 1 Year From Orig ?? inal Mammogram ? Procedure(s): MM tomosynthesis screening BI ?? Accession Number(s): [id number] ? cc: Brittnee Hanna MD ? EXAMINATION: [...] 0340 ? DD/ 1539 ? TD/TT: ? Information Systems Security Analyst: ? Procedure Note Donotuseinterpreter, Image - 08/12/2023 [facility] [address] [place], [place] [address] Mammography Report Signed Patient: Javy Perry#: M [id number] : 1965Acct:[id number] Age/Sex: 57 / FADM Date: 07/24/23 Loc: HO.MAMMO Attending Dr: Brittnee Hanna MD Ordering Physician: Brittnee Hanna MDResults: 1N egative Date of Service: 07/24/23Follow Up: 1 Year From Orig inal Mammogram Procedure(s): MM tomosynthesis screening BI Accession Number(s): [id number] cc: Brittnee Hanna MD EXAMINATION: MM SCREENING [...] by Marleen Peter MD in OV> 08/12/23 5040 DD/ 1539 TD/TT: Information Systems Security Analyst: Brittnee Hanna MD [facility] BI PROCEDURES Edited R esult - Final * THINPREP TIS PAP AND HPV mRNA E6/E7, CT/NG, TRICH (05/16/2022 9:44 AM EDT) Chlamydia trachomatis RNA, TMA, Urogenital NOT DETECTED NOT DETECTED [employer]VERTED [employer] Clinical Information: None given [facility] COMMENT SEE COMMENT CONVERTE D [employer] Comment: The analytical performance characteristics of this assay, when used to test SurePath(TM) specimens have been determined by [employer]. The modifications have not been cleared or approved by the FDA. This assay has been validated pursuant to the CLIA regulations and is used for clinical purposes. ?? For additional information, please refer to https://education.[employer]/faq/ERM074 (This link is being provided for information/ educational purposes only.) ?? COMMENT SEE COMMENT SAGAR Mann [employer] Comment: EXPLANATORY NOTE: ? The Pap is [...] been evaluated with computer assisted technology. CONVERTED [employer] Emerging Technologies Director: SEE COMMENT [facility] Comment: RXB, CT(ASCP) CT screening location: [address] ??[address] HPV nRNA E6/E7 Not Detected Not Detected CONVERTED [employer] Comment: Methodology: Nursing Program Chair-Mediated Amplification This assay detects E6/E7 viral messenger RNA (mRNA) from 14 high-risk HPV types (16,18,31,33,35,39,45,51,52,56,58,59,66,68). ? Cervical sources are required for HPV testing. If a vaginal source from a patient who has had a total hysterectomy with removal of cervix was ?? submitted, please contact the testing laboratory for alternative testing options. ?? For additional information, please refer to http://homedeco2u.[employer]/faq/CTA583i3 (This link if provided for information/ educational [...] of this assay have been determined by [employer]. The modifications have not been cleared or approved by the FDA. This assay has been validated pursuant to the CLIA regulations and is used for clinical purposes. ?? For additional information, please refer to http://homedeco2u.[employer]/ faq/Trichomonastma (This link is being provided for [...] Negative Blood Venous blood specimen / Unknown Historical Provider LAB BLOOD ORDERABLES Emelia l Result * Hepatitis C Antibody with Reflex to HCV, RNA, Quantitative, Real-Time PCR (02/22/2014) Blood Venous blood specimen / Unknown 02/22/2014 Historical Provider LAB BLOOD ORDERABLES Emelia l Result from Last 3 Months or Most Recently Relevant to Health Maintenance Insurance [facility] C[facility] Advance Directives Documents on File Type Date Recorded Patient Burr Bench Operator Expl anation Advance Directives and Living Will 04/07/2024 Health Care Proxy 04/07/24 Care Teams Director Of Retail Operations Relationship Specialty Start Date End Date Steward, MD Brittnee [address] [place] [address] PCP - General Family Medicine 08/17/18 Martina Mancia OD [address] [place] [phone] Optometry 07/26/24 Donna Sutton Hardboard Factory WorkerOptical Engineering Manager 05/06/24 Bety Benson NP [facility] Endocrinology Endocrinology 11/04/24
--- OUTSIDE RECORDS SUMMARY | 2024-11-30 16:57 | XMS_ITS | Encounter Summary ---
Author Organization [employer] Address [address] [place] [address] Care Team Providers Care Manager Spring Name Role Phone Brittnee Hanna MD Primary Care Provider [phone] Di Hyde PharmD Unavailable Martina Mancia OD Unavailable Reason for Visit * Reason Comments Med Refill Encounter Details Date Type Department Care Team (Late st Contact Info) Description 07/21/2023 Refill [facility]S [address] [place], [place] [phone] Brittnee Hanna MD [address] [place], [place] [phone] Mild intermittent asthma without complication Social History [...] as of this encounter Care Teams Manager Spring Relationship Specialty Start Date End Date Brittnee Hanna MD [address] [place] [address] PCP - General Family Medicine 08/17/18 Di Hyde, PharmD [address] [place] [address] Pharmacist Internal Medicine 01/06/23 08/31/24 Martina Mancia OD [address] [place] [phone] Optometry 07/26/24 Donna Sutton Switching ClerkEvent Marketing Manager 05/06/24 Bety Benson NP [facility] Endocrinology Endocrinology 11/04/24 documented as of this encounter
--- OUTSIDE RECORDS SUMMARY | 2024-11-30 16:57 | XMS_ITS | Encounter Summary ---
Author Organization [employer] Address [address] [place] [address] Care Team Providers Care Adolescent Coordinator Name Role Phone Brittnee Hanna MD Primary Care Provider +- [phone] Di Hyde PharmD Unavailable Martina Mancia OD Unavailable [phone] Encounter Details Date Type Department Care Team ([facility] st Contact Info) Description 05/24/2024 Orders Only [facility] [address] [place] [address] Brittnee Hanna MD [address] [place] [address] Social History Tobacco Use Types Packs/Day Years [...] documented as of this encounter Care Teams Adolescent Coordinator Relationship Specialty Start Date End Date Brittnee Hanna MD [address] [place] [address] PCP - General Family Medicine 08/17/18 Di Hyde, PharmD [address] [place] [address] Pharmacist Internal Medicine 01/06/23 08/31/24 Martina Mancia OD [address] [place] [address] Optometry 07/26/24 Donna Sutton Sugar BoilerJoint Creaser 05/06/24 Bety Benson NP [facility] Endocrinology Endocrinology 11/04/24 documented as of this encounter
--- OUTSIDE RECORDS SUMMARY | 2024-11-30 16:57 | XMS_ITS | Encounter Summary ---
Author Organization [employer] Address [address] [place] [address] Care Team Providers Care Oil Plant Operator Name Role Phone Brittnee Hanna MD Primary Care Provider [phone]- [phone] Di Hdye PharmD Unavailable Martina Mancia OD Unavailable [phone] Reason for Visit * Reason Onset Date Comments Appointment Request 07/18/2024 Encounter Details Date Type Department Care Team ([facility] st Contact Info) Description 07/18/2024 Telephone [facility] MEDICINE [address] [place] [address] Brittnee Hanna MD [address] [place], [place] [phone] Appointment Request Social History Tobacco Use Types [...] documented as of this encounter Care Teams Oil Plant Operator Relationship Specialty Start Date End Date Brittnee Hanna MD [address] [place] [phone] PCP - General Family Medicine 08/17/18 Di Hyde, PharmD [address] [place] [address] Pharmacist Internal Medicine 01/06/23 08/31/24 Martina Mancia OD [address] [place] [address] Optometry 07/26/24 Donna Sutton Reverberatory Furnace SupervisorTractor Operator 05/06/24 Bety Benson, [facility] Endocrinology Endocrinology 11/04/24 documented as of this encounter
--- OUTSIDE RECORDS SUMMARY | 2024-11-30 16:57 | XMS_ITS | Encounter Summary ---
Author Organization [employer] Address [address] [place] [address] Care Team Providers Care Tree Killer Name Role Phone Brittnee Hanna MD Primary Care Provider [phone]- [phone] Martina Mancia OD Unavailable [phone] Reason for Visit * Reason Comments Med Refill Encounter Details Date Type Department Care Team ([facility] st Contact Info) Description 10/03/2024 Refill [facility] MEDICINE [address] [place], [place] [phone] Brittnee Hanna MD [address] [place] [address] Mild intermittent asthma without complication Social History [...] Meade, PharmD documented as of this encounter Visit Diagnoses Diagnosis Mild intermittent asthma without complication documented in this encounter Additional Health Concerns Assessment Noted Time PHQ-9 Depression Total Score: 15 024 10:35 AM EDT documented as of this encounter Care Teams Tree Killer Relationship Specialty Start Date End Date Brittnee Hanna MD [address] [place] [address] PCP - General Family Medicine 08/17/18 Martina Mancia OD [address] [place] [phone] Optometry 07/26/24 Donna Sutton WharfmasterDrying Machine Back Tender 05/06/24 Bety Benson NP [facility] Endocrinology Endocrinology 11/04/24 documented as of this encounter
--- OUTSIDE RECORDS SUMMARY | 2024-11-30 16:57 | XMS_ITS | Encounter Summary ---
Author Organization [employer] [facility] Address [address] [place] [address] Care Team Providers Care Psychologist Research Assistant Name Role Phone Brittnee Hanna MD Primary Care Provider +- [phone] Di Hyde PharmD Unavailable Martina Mancia OD Unavailable Encounter Details Date Type Department Care Team ([facility] st Contact Info) Description 09/22/2022 Abstract [facility] MEDICINE [address] [place] [address] Brittnee Hanna MD [address] [place], [place] [phone] Social History Tobacco Use Types Packs/Day Years [...] Routine 08/21/2020 HIV-1 ANTIBODY, EIA Routine 04/25/2019 MAMMOGRAPHY Routine 06/14/2018 HEPATITIS C AB W/REFL TO HCV RNA, QN, PCR Routine 02/22/2014 documented in this encounter Results * (ABNORMAL) TSH (06/05/2022) TSH 1.59(A) 4.00 - 5.40 mIU/L Blood Venous blood specimen / Unknown Result [facility] Provider LAB BLOOD ORDERABLES Emelia l Result * Basic Metabolic Panel (06/05/2022) Creatinine 1.0 0.5 - 1.1 mg/dL Blood Venous blood specimen / Unknown Result [facility] Provider LAB BLOOD ORDERABLES Emelia l Result * (ABNORMAL) Lipid Panel, Standard (06/05/2022) Triglycerides 163(A) 40 - 160 mg/dL Cholesterol 209(A) 0 - 200 mg/dL HDL Cholesterol 70 35 - 70 mg/dL LDL Cholesterol 111 mg/dL Blood Venous blood specimen / Unknown [facility] Provider LAB BLOOD ORDERABLES Emelia l Result * Pap Smear (05/16/2022 12:00 AM EDT) Swab [facility] Provider LAB CYTOLOGY ORDERABLES F inal Result [facility] * Colonoscopy (08/21/2020) Colonoscopy hyperplastic polyp Dr. Olivarez Historical Provider HEALTH MAINTENANCE Final Result * HIV-1 antibody, EIA (04/25/2019) External HIV-1 Antibody Negative Blood Venous blood specimen / Unknown Result [facility] Provider LAB BLOOD ORDERABLES Emelia l Result * Mammography (06/14/2018) HM Mammogram normal Anatomical Region Laterality Modality Other [facility] Provider HEALTH MAINTENANCE Final Result * Hepatitis C Antibody with Reflex to HCV, RNA, Quantitative, Real-Time PCR (02/22/2014) Blood Venous blood specimen / Unknown 02/22/2014 Result [facility] Provider LAB BLOOD ORDERABLES Emelia l Result documented in this encounter Visit Diagnoses Not on filedocumented in this encounter Additional Health Concerns Assessment Noted Time PHQ-9 Depression Total Score: 0 09/22/19 23 9:47 AM EST documented as of this encounter Care Teams Psychologist Research Assistant Relationship Specialty Start Date End Date Brittnee Hanna MD [address] [place] [address] PCP - General Family Medicine 08/17/18 Di Hyde PharmD [address] [place] [address] Pharmacist Internal Medicine 01/06/23 08/31/24 Martina Mancia OD [address] [place] [address] Optometry 07/26/24 Donna Sutton Roofing ContractorUrogynaecologist 05/06/24 Bety Benson NP [facility] [place] Endocrinology Endocrinology 11/04/24 documented as of this encounter
== END 2024-11-30 15:06 | disposition home or self-care (01) ==
LOC: HO.ENCR 14:14
PROVIDERS: PCP Family Medicine; Visit Provider Registered Nurse Diabetes Educator
DX: E11.9 Type 2 diabetes mellitus without complications (principal); Z79.4 Long term (current) use of insulin

== ENCOUNTER → 2024-11-30 14:13 | Outpatient (BNVA) | payer MEDICAID, SELFPAY | PROVIDERS: PCP Family Medicine; Visit Provider Registered Nurse Diabetes Educator | DX: E11.9 Type 2 diabetes mellitus without complications (principal); Z79.4 Long term (current) use of insulin | CPT/HCPCS: 99211 ==

== ENCOUNTER 2024-12-13 14:14 | Outpatient (AMB) | payer MEDICAID, SELFPAY ==
--- NOTE | 2024-12-13 14:16 | MHC.OFFVIS ---
Vital Signs 12/13/24 14:19 Height 5 ft 2 in Weight 119 lb 11.376 oz BMI 21.9 BP 116/58 L Blood Pressure Location Lt brachial Position Sitting Pulse 83 Pulse Source Palpation Intake Visit Reasons: T2DM Intake Note: Patient present today to follow up on Type 2 Diabetes Mellitus. Last Diabetic Eye exam: October 2024, pending appointment for an operation on the left eye. Last Podiatry Visit: Does not see a Nursing Unit Clerk Random Glucose: 302 mg/dl HgA1C: 12.7% 10/04/2024 Health Care Facilities Inspector Required: Yes Health Care Facilities Inspector Language: Early Childhood Specialist Services: Health Care Facilities Inspector Present Health Care Facilities Inspector Name: Chacha [id number] Information Interpreted: non-clinical & clinical Accompanied by: Self / Same As Patient Allergies shellfish derived [SHELLFISH DERIVED] Allergy (Severe, Verified 12/13/24 14:20) Swelling Penicillins Allergy (Mild, Verified 12/13/24 14:20) UNKNOWN - RXN CHILD naproxen [NAPROXEN] Allergy (Unknown, Verified 12/13/24 14:20) CAN'T TAKE PER HER MILLING MACHINE OPERATOR seasonal allergies Allergy (Mild, Uncoded 12/13/24 14:20) Itchy Eyes Medication List - Last Reconciled 12/13/24 by GEMA Mackey acetaminophen 500 mg PO Q6H PRN albuterol sulfate 90 mcg/actuation (ProAir HFA) 2 puffs inhalation Q4-6H PRN amlodipine 5 mg PO QAM aripiprazole 2 mg PO BEDTIME aspirin 81 mg PO DAILY atorvastatin 80 mg PO QPM bismuth subsalicylate 2 tabs PO QID blood sugar diagnostic (FreeStyle Precision [place] Strips) As directed blood-glucose meter (FreeStyle [place] Lite kit) As directed blood-glucose sensor (FreeStyle Ric 3 Sensor device) apply new sensor every 14 days blood-glucose,hand tacker,cont (FreeStyle Ric 3 [place]) Use daily to monitor blood glucose levels continuously. dextrose (TRUEplus Glucose) 15 grams (32 mL) PO Q15M PRN doxepin 10 mg PO BEDTIME dulaglutide (Trulicity) 1.5 mg (0.5 mL) subcut QWEEK ferrous sulfate (FeroSul) 325 mg PO Q OTHER DAY flash glucose sensor (FreeStyle Ric 2 Sensor kit) As directed fluticasone propion-salmeterol 250-50 mcg/dose (Advair Diskus) 1 puff inhalation BID gabapentin 100 mg PO BID ibuprofen 600 mg PO TID PRN insulin glargine (Lantus Solostar U-100 Insulin) 40 units subcut BEDTIME insulin lispro 15 units subcut TIDWMEAL isosorbide mononitrate ER 30 mg PO DAILY lancets (TRUEplus Lancets) As directed lisinopril 20 mg PO DAILY loratadine 1 tab PO QAM metoprolol succinate ER 1 tab PO QAM olanzapine 7.5 mg PO BEDTIME pantoprazole 20 mg PO BID 2 weeks pen needle, diabetic (Pentips Pen Needle) As directed prazosin 1 mg PO BEDTIME sertraline 25 mg PO QAM tiotropium bromide (Spiriva with HandiHaler) 1 cap inhalation DAILY HPI Comments Details: This is a 59-year-old female with a past medical history of type 2 diabetes, depression, CKD stage 3, asthma-COPD, CAD (STEMI 04/15/2014 requiring PCI with JENISE to proximal LAD), decreased LVEF, gastritis, dizziness and falls and tobacco use presenting for an initial consult for diabetic management. [place] video damper worker used. She was diagnosed with type 2 diabetes 17 years ago. Family history of Type I: none Family history of Type 2: parents History of DKA - admitted 03/17/2022 for DKA in the setting of acute cystitis. Reviewed Ric 3+ download CGM active 94% Average glucose 263 GMI 9.6% (down from 10.9% at previous visit) Glucose variability 29.3% Very high 54% High 30% Target range 16% 0% hypoglycemia She has a pattern of hyperglycemia throughout 24 hours. Hemoglobin a1c today 10/04/24 is 12.7%. Current medication regimen: Trulicity 0.75 mg, Lantus 36 nightly, insulin lispro 15 before meals (eats 3 meals daily, and she injects insulin before she eats) She initially had some nausea and diarrhea after Trulicity which she reported to the conservation educator, but the side effects of since resolved. Past medications: Patient denies Compliance issues: patient denies Diet: Breakfast-oatmeal, water apple or banana for snack Lunch-tuna sandwich, water Dinner-potato, plantains, fish, chicken, pasta or rice Snacks/desserts:none No alcohol, soda or juice Hypoglycemia symptoms: occasional, treats with apple juice Hyperglycemia symptoms: tired, dry mouth, polydipsia, polyuria Eye exam: October 2024 Microvascular complications: neuropathy, nephropathy, no known retinopathy Macrovascular complications: Coronary artery disease Hypertension: Treated with lisinopril, isosorbide mononitrate, metoprolol, amlodipine. Hyperlipidemia: treated with atorvastatin ROS: Constitutional: Denies fevers, chills, night sweats Eyes: Denies vision changes, denies blurry vision Respiratory: No shortness of breath, cough or sputum production. Cardiovascular: No chest pain, chest pressure or chest discomfort. No palpitations or pedal edema. Gastrointestinal: Denies nausea, vomiting, diarrhea, abdominal pain, acid reflux. Denies constipation. Neurologic: No headache or dizziness. She endorses tingling pain in her toes. She is on gabapentin. Endocrine: See HPI Physical exam: Constitutional: Alert, in no distress. Eyes: Pupils are equal, round and reactive to light. Neck: Supple, Full range of motion. No lymphadenopathy. No palpable thyroid masses. Respiratory: Clear to auscultation. Cardiovascular: S1 S2 regular. No murmurs. No carotid bruits. [facility] Medical History (Updated 10/04/24 @ 10:38 by GEMA Mackey) Type II diabetes with intermodal customer service use of insulin Symptomatic anemia GI bleed Diabetes Anxiety Depression Asthma History of heart attack CAD (coronary artery disease) Hypercholesteremia HTN (hypertension) Surgical History Stented coronary artery Hx of colonoscopy (04/11/14) Family History Father Diabetes Hypercholesteremia HTN (hypertension) Mother HTN (hypertension) Diabetes Hypercholesteremia Brother HTN (hypertension) Diabetes Social History Household Members: None Housing: House Do you presently have visiting nurse or other home services: Yes (BIT GATHERER) Alcohol intake: current Alcohol intake frequency: does not drink Patient Tobacco Use Status: Former Tobacco user service: No Current occupational status: disabled Physical Exam Vital Signs: Last Vital Signs Pulse 83 12/13/24 14:19 BP 116/58 L 12/13/24 14:19 BMI result Body Mass Index 21.9 Office Procedures Glucose Monitoring Details Details: see HPI 25029 - Glucose monitoring, continuous-physician I&R Procedure code (CPT) selection complete Results Reviewed Results Reviewed: Laboratory Last Values Glucose (Clinic) 302 mg/dL (60-115) H 12/13/24 14:26 Laboratory Tests 01/07/22 06/18/24 09/19/24 13:22 12:51 10:00 Creatinine 0.94 1.23 Estimated GFR > 60 44 B-Natriuretic Peptide 128 H Triglycerides 206 H Cholesterol 141 LDL Cholesterol, Calc 65 HDL Cholesterol 35 L TSH 0.76 Urine Creatinine 161.00 Urine Microalbumin 17.0 Microalb/Creat Ratio 10.5 Laboratory Tests 10/06/24 13:46 C-Peptide 1.37 Islet Cell Ab Screen NEGATIVE JEREMIAS Antibody <5 Assessment & Plan Assessment & Plan (1) Type II diabetes with intermodal customer service use of insulin: Code(s): E11.9 - Type 2 diabetes mellitus without complications; Z79.4 - residential (current) use of insulin Category: Medical Plan In summary this is a 59-year-old diabetic female with poor albeit improving glycemic control on basal bolus insulin and Trulicity. Advised patient to bring her CGM to all appointments so we can review data and adjust her medications. Increase Lantus from 36 to 40 units nightly. Continue insulin lispro 15 units before meals. Increase Trulicity to 1.5 mg weekly. If you experience low blood sugar, treat this by eating a chewable fruit candy like skittles or jelly beans (about 8 pieces), 4 ounces (1/2 cup) of fruit juice (not diet), 1 tablespoon of honey or 4 glucose tablets or a 15 g glucose gel packet. If your blood sugar is under 55, take double the amount of one of the above. Recheck your blood sugar in 15 minutes. I prescribed glucose gel since she is edentulate. Patient should not drive if she does not have a reliable way to check her blood sugar or has symptoms of hypoglycemia. Discussed pathophysiology of Type II Diabetes Mellitus with the patient in detail.? I explained the intermodal customer service risks and complications associated with uncontrolled diabetes including nephropathy, neuropathy, peripheral vascular disease, retinopathy, increased risk of heart disease and stroke.? Follow up in 4 weeks for type 2 diabetes. Orders: Orders AMB Glucose Monitoring Today E11.9 - Type 2 diabetes mellitus without complications Medications: New dulaglutide (Trulicity) 1.5 mg (0.5 mL) subcut QWEEK 2 mL 1RF Discontinued dulaglutide (Trulicity) Discontinued Reason: Doctor's Order 0.75 mg (0.5 mL) subcut QWEEK 2 mL 0RF Patient Instructions: Increase Lantus to 40 units daily Increase Trulicity to 1.5 mg weekly Continue insulin lispro 15 units with meals three times per day If you experience low blood sugar, treat this by eating a chewable fruit candy like skittles or jelly beans (about 8 pieces), 4 ounces (1/2 cup) of fruit juice (not diet), 1 tablespoon of honey or 4 glucose tablets. If your blood sugar is under 55, take double the amount of one of the above. Recheck your blood sugar in 15 minutes. Aumente la dosis de Lantus a 40 unidades diarias. Aumente la dosis de Trulicity a 1.5 mg semanales. Contin?e tomando 15 unidades de insulina lispro con las comidas caitie veces al d?a. Si experimenta niveles bajos de az?car en la mariah, tr?telo con un caramelo masticable de fruta freddy Skittles o Jelly Beans (aproximadamente 8 piezas), 113 ml (1/2 taza) de jugo de fruta (no diet?yancy), 1 cucharada de miel o 4 tabletas de glucosa. Si campbell nivel de az?car en la mariah es inferior a 55, tome el doble de la dosis de moreno de los medicamentos mencionados. Vuelva a medir campbell nivel de az?car en la mariah en 15 minutos. Coding Level of Care Code Est Pt Level 4 (71382) Diagnoses Type II diabetes with intermediate use of insulin E11.9; Z79.4 CPT Codes Details - CPT: 80455 - Glucose monitoring, continuous-physician I&R ([id number])
[2024-12-13 14:19] VITALS: BP 116/58; PULSE 83; BMI 21.9
[2024-12-13 14:32] LABS: Glucose, Whole Blood 302 mg/dL (60-115)
--- OUTSIDE RECORDS SUMMARY | 2024-12-13 16:26 | XMS_ITS | Encounter Summary ---
Author Organization [employer] [facility] Address [address] [place] [address] Care Team Providers Care Cargo Handler Name Role Phone Brittnee Hanna MD Primary Care Provider [phone]- [phone] Di Hyde PharmD Unavailable Martina Mancia OD Unavailable Reason for Visit * Reason Comments Med Refill Encounter Details Date Type Department Care Team (Late st Contact Info) Description 02/18/2023 Refill [facility] [address] [place] [address] Brittnee Hanna MD [address] [place], [place] [phone] Type 2 diabetes mellitus with other circulatory complication, with long-term current use of insulin ([facility]) Social History Tobacco [...] use of insulin ([facility]) documented in this encounter Additional Health Concerns Assessment Noted Time PHQ-9 Depression Total Score: 023 9:47 AM EDT documented as of this encounter Care Teams Cargo Handler Relationship Specialty Start Date End Date Brittnee Hanna MD [address] [place] [address] PCP - General Family Medicine 08/17/18 Di Hyde, PharmD [address] [place] [address] Pharmacist Internal Medicine 01/06/23 08/31/24 Martina Mancia OD [address] [place] [id number] Optometry 07/26/24 Donna Sutton Spool WorkerOracle Solutions Architect 05/06/24 Bety Benson NP [facility] Endocrinology Endocrinology 11/04/24 documented as of this encounter
--- OUTSIDE RECORDS SUMMARY | 2024-12-13 16:26 | XMS_ITS | Encounter Summary ---
Author Organization [employer] [facility] Address [address] [place] [address] Care Team Providers Care Mixer And Blender Name Role Phone Brittnee Hanna MD Primary Care Provider [phone]- [phone] Di Hyde PharmD Unavailable Martina Mancia OD Unavailable [phone] Encounter Details Date Type Department Care Team ([facility] st Contact Info) Description 12/17/2022 Abstract [facility] [address] [place] [address] Brittnee Hanna MD [address] [place] [address] Social History Tobacco Use Types Packs/Day Years [...] documented as of this encounter Care Teams Mixer And Blender Relationship Specialty Start Date End Date Brittnee Hanna MD [address] [place] [address] PCP - General Family Medicine 08/17/18 Di Hyde PharmD [address] [place], [place] [phone] Pharmacist Internal Medicine 01/06/23 08/31/24 Martina Mancia OD [address] [place] [id number] Optometry 07/26/24 Donna Sutton Project Reservoir EngineerComputing Tutor 05/06/24 Bety Benson NP [facility] Endocrinology Endocrinology 11/04/24 documented as of this encounter
--- OUTSIDE RECORDS SUMMARY | 2024-12-13 16:27 | XMS_ITS | Encounter Summary ---
Author Organization [employer] Address [address] [place] [address] Care Team Providers Care Mottler Machine Feeder Name Role Phone Brittnee Hanna MD Primary Care Provider [phone] Di Hyde PharmD Unavailable Martina Mancia OD Unavailable [phone] Reason for Visit * Reason Comments Med Refill Encounter Details Date Type Department Care Team (Late st Contact Info) Description 07/21/2023 Refill [facility] [address] [place], [place] [phone] Brittnee Hanna MD [address] [place], [place] [phone] Mild intermittent asthma without complication Social History [...] documented as of this encounter Care Teams Mottler Machine Feeder Relationship Specialty Start Date End Date Brittnee Hanna MD [address] [place] [address] PCP - General Family Medicine 08/17/18 Di Hyde, PharmD [address] [place] [address] Pharmacist Internal Medicine 01/06/23 08/31/24 Martina Mancia OD [address] [place] [id number] Optometry 07/26/24 Donna Sutton Coreroom Foundry LaborerEmt I/99 05/06/24 Bety Benson NP [facility] Endocrinology Endocrinology 11/04/24 documented as of this encounter
--- OUTSIDE RECORDS SUMMARY | 2024-12-13 16:27 | XMS_ITS | Clinical Summary ---
Author Organization [employer] Address [address] [place] [address] Care Team Providers Care Inspector Dials Name Role Phone Brittnee Hanna MD Primary Care Provider [phone] Martina Mancia OD Unavailable [phone] Allergies Active Allergy Reactions Criticality Noted Date Comments Naproxen 06/18/2024 Other Reaction(s): CAN'T TAKE PER HER TOP FORMER Penicillin V 08/13/2010 Other reaction(s): unspecified Penicillins Hives 03/17/2022 Shellfish-Derived Products Swelling High 0 Other reaction(s): unspecified Medications * This document contains information received from the source organization and may not represent a complete record from that organization. Continuous Blood Gluc Sports Announcer (FreeStyle Ric 2 [place]) device Use as directed 1 each 01/07/20 23 Active Continuous Glucose Sensor (FreeStyle Ric 2 Sensor) miscIndications: Type 2 diabetes mellitus with hyperglycemia, with long-term current use of insulin ([facility]) USE DIRECTED TO TEST BLOOD SUGAR CHANGE EVERY 14 DAYS 2 each 12/15/19 24 Active amLODIPine (Norvasc) 5 MG tabletIndication s:Essential hypertension Take 1 tablet (5 mg) by mouth Once per day. 30 tablet 11 12/30/19 24 025 Active atorvastatin (Lipitor) 80 MG tabletIndication s:Type 2 diabetes mellitus with hyperglycemia, with long-term current use of insulin ([facility]),Dyslip idemia Take 1 tablet (80 mg) by mouth at bedtime. 90 tablet 3 12/30/19 24 Active tiotropium (Spiriva HandiHaler) 18 MCG inhalation capsuleIndicatio ns:Chronic obstructive pulmonary disease, unspecified COPD type ([facility]),Mild intermittent asthma without complication Place 1 capsule (18 mcg) into inhaler and inhale in the morning. 30 capsule 12/30/19 24 Active lisinopril 20 MG tabletIndication s:Essential hypertension Take 1 tablet (20 mg) by mouth in the morning. 90 tablet 3 12/31/19 24 Active isosorbide mononitrate ER (Imdur) 30 MG 24 hr tabletIndication s:Essential hypertension TAKE 1 TABLET BY MOUTH EVERY MORNING 90 tablet 12/31/19 24 Active TRUEplus Lancets 33G miscIndications: Type 2 diabetes mellitus with hyperglycemia, with long-term current use of insulin ([facility]) TEST BLOOD SUGAR FIVE TIMES DAILY 200 each 01/05/20 24 Active Blood Glucose Monitoring Suppl (Heartbeater.comyle OpGen Lite) w/Device kitIndications:T ype 2 diabetes mellitus with hyperglycemia, with long-term current use of insulin ([facility]) TEST BLOOD SUGAR FIVE TIMES DAILY DIRECTED 1 01/08/20 24 Active OLANZapine (ZyPREXA) 7.5 MG tabletIndication s:Recurrent major depressive disorder, in remission ([facility]) TAKE 1 TABLET BY MOUTH AT BEDTIME 30 tablet 02/09/20 24 Active aspirin (Aspirin Adult Low Strength) 81 MG EC tabletIndication s:Coronary artery stenosis Take 1 tablet (81 mg) by mouth in the morning. 90 tablet 3 04/12/20 24 Active metoprolol succinate XL (Toprol-XL) 50 MG 24 hr tabletIndication s:Essential hypertension Take 1 tablet (50 mg) by mouth in the morning. Do not crush or chew. 90 tablet 3 04/12/20 24 Active Alcohol Swabs (Alcohol Prep) 70 % padsIndications: Type 2 diabetes mellitus with hyperglycemia, with long-term current use of insulin ([facility]) USE BEFORE TEST BLOOD SUGAR AND INSULIN 100 each 04/26/20 24 Active glucose 4 g chewable tabletIndication s:Type 2 diabetes mellitus with hyperglycemia, with long-term current use of insulin ([facility]) Chew 4 tablets (16 g) if needed for low blood sugar. 50 tablet 04/26/20 24 Active glucagon (Baqsimi Two Pack) 3 MG/DOSE nasal powderIndication s:Type 2 diabetes mellitus with hyperglycemia, with long-term current use of insulin ([facility]) For low blood sugar emergencies, insert 3mg into one nostril, may repeat the dose if no response after 15 minutes. 1 each 04/26/20 24 Active gabapentin (Neurontin) 100 MG capsuleIndicatio ns:Neuropathy Take 1 capsule (100 mg) by mouth 2 times daily. 180 capsule 3 07/27/20 24 025 Active loratadine (Claritin) 10 MG tabletIndication s:Allergic rhinitis, unspecified seasonality, unspecified trigger TAKE 1 TABLET BY MOUTH EVERY MORNING FOR ALLERGIES 90 tablet 3 07/28/20 24 Active glucose blood (FreeStyle Precision Freeman Test) test stripIndications :Type 2 diabetes mellitus with hyperglycemia, with long-term current use of insulin ([facility]) TEST BLOOD SUGAR UP TO FOUR TIMES DAILY NEEDED 100 strip 08/25/19 25 Active Ferrous Sulfate (iron) 325 (65 Fe) MG tabletIndication s:Anemia, unspecified type TAKE 1 TABLET BY MOUTH EVERY OTHER DAY IN THE MORNING 45 tablet 08/25/19 25 Active Icosapent Ethyl (Vascepa) 1 g capsuleIndicatio ns:Dyslipidemia TAKE 2 CAPSULES BY MOUTH TWICE DAILY IN THE MORNING AND EVENING 360 capsule 08/25/19 25 Active acetone, urine, test stripIndications :Type 2 diabetes mellitus with hyperglycemia, with long-term current use of insulin ([facility]) Use as directed to check for ketones in the urine as needed 100 each 08/31/19 25 Active doxepin (SINEquan) 10 MG capsule TAKE 1 CAPSULE BY MOUTH AT BEDTIME FOR SLEEP 08/26/19 25 Active prazosin (Minipress) 1 MG capsule TAKE 1 CAPSULE BY MOUTH AT BEDTIME FOR NIGHTMARES 08/26/19 25 Active sertraline (Zoloft) 25 MG tablet Take 1 tablet by mouth once daily Active ARIPiprazole (Abilify) 2 MG tablet Take 1 tablet by mouth at bedtime Active insulin pen needle (Pentips) 32G x 4 mm misc Use as instructed 100 each 09/12/19 25 Active chlorthalidone (Hygroton) 25 MG tabletIndication s:Essential hypertension TAKE ONE HALF TABLET BY MOUTH ONCE DAILY 45 tablet 1 09/19/19 25 Active Advair Diskus 250-50 MCG/ACT aerosol powderIndication s:Mild intermittent asthma without complication INHALE 1 PUFF BY MOUTH TWICE DAILY IN THE MORNING AND IN THE EVENING. RINSE MOUTH AFTER USING. 60 each 5 10/19/19 25 Active Dulaglutide 0.75 MG/0.5ML solution auto-injector Inject under the skin. Active insulin lispro (HumaLOG) 100 UNIT/ML injectionIndicat ions:Type 2 diabetes mellitus with other circulatory complication, with long-term current use of insulin ([facility]) Administer 18 units daily before each meal 15 mL 11/02/19 25 Active insulin glargine (Lantus SoloStar) 100 UNIT/ML penIndications:T ype 2 diabetes mellitus with other circulatory complication, with long-term current use of insulin ([facility]) INJECT 42 UNITS SUBCUTANEOUSLY AT BEDTIME. If FBG > 180, increase to 46 units after 3 days. 3 mL 1 11/02/19 25 Active albuterol (Ventolin HFA) 108 (90 Base) MCG/ACT inhalerIndicatio ns:Mild intermittent asthma without complication INHALE 2 PUFFS BY MOUTH EVERY 4 HOURS NEEDED FOR WHEEZING OR SHORTNESS OF BREATH 18 g 11/03/19 25 Active Active Problems Patient Care Coordination No te Formatting of this note migh t be different from the original. Enrolled in [facility] DM clinic with Shabbir McmillanD, [facility] Problem Noted Date Diagnosed Date Unintentional weight [...] for OP and psychiatry services in the [place] area. clinician provided contact information for [facility] and [facility] in [place]. Dizziness 12/30/2023 Overview (12/31/2023): Pt continues to [...] as pharmacomtherapy, [facility] smoking cessation group, and [facility] pharmacy smoking cessation clinic Discussed USPSTF [...] as pharmacomtherapy, [facility] smoking [facility] group, and [facility] pharmacy smoking cessation clinic Discussed USPSTF [...] as pharmacomtherapy, [facility] smoking [facility] group, and [facility] pharmacy smoking cessation clinic Discussed USPSTF [...] due after 07/27/25 -eye care facilitated by [facility] on 05/20/2023 -dental home is [facility], [facility] -health care proxy filed 04/07/24 Assessment & Plan (07/27/2024 2:57 PM EST): -next physical exam due after 07/27/25 -eye care facilitated by [facility] on 05/20/2023 -dental home is [facility], [facility] -health care proxy filed 04/07/24 Assessment & Plan (04/07/2024 10:24 AM EDT): -next physical exam due after 06/10/2024 -eye care facilitated by [facility] on 05/20/2023 -dental home is [facility], [facility] -health care proxy filed 04/07/24 Assessment & Plan (06/10/2023 2:19 PM EDT): -next physical exam due after 06/10/2024 -eye care facilitated by [facility] on 05/20/2023 -dental home is Anemia [...] controlled -does not take meds before visits -[facility] referral Disorder of cardiovascular system 05/03/2014 Overview [...] strict ED precautions. -Referral to re-establish with [facility] placed Assessment & Plan (09/22/2022 [...] for OP and psychiatry services in the [place] area. clinician provided contact information for [facility] and [facility] in [place]. Assessment & Plan (01/08/2023 10:29 AM EDT): [...] Rereferred to endo and restablished 10/2024 at [facility] . On Freestyle Ric 3 [...] glucose monitor. Needs sensors. She did not picker feeder but will this week. Lab Results Component [...] is not controlled. -Pt is followed by [facility]. Lab Results Component Value Date HGBA1C 11.5 [...] admitted on 03/17/2022 for DKA (diabetic ketoacidosis) ([facility]) [E11.10];Acute cystitis without [...] admitted on 03/17/2022 for DKA (diabetic ketoacidosis) ([facility]) [E11.10];Acute cystitis without hematuria [N30.00] Results: [...] Encounters Date Type Department Care Team Description 12/13/2024 Orders Only GENERIC EXTERNAL DATA DEPARTMENT Provider, Generic External Data 11/08/2024 Telephone [facility] MEDIC[facility] [address] [place] [address] Brittnee Hanna MD Call Back Request 11/07/2024 1:00 PM EDT Office Visit [facility] OPTOMETRY [address] [place] [address] Gavino, Martina, OD Diabetes type 2, no ocular involvement ([facility]) (Primary Dx); Nuclear senile cataract of both eyes; White without pressure of peripheral retina of both eyes; Dry eyes; Presbyopia 11/07/2024 Travel 11/02/2024 Refill [facility] [address] [place] [address] Brittnee Hanna MD Mild intermittent asthma without complication 11/01/2024 Orders Only [facility] [address] [place] [address] Nguyen Orourke MD Type 2 diabetes mellitus with other circulatory complication, with long-term current use of insulin ([facility]) 11/01/2024 Orders Only GENERIC EXTERNAL DATA DEPARTMENT Provider, Generic External Data 10/28/2024 Population Health Risk Score [facility] () Department [address] [phone] Provider, Population Health Generic 10/21/2024 Telephone [facility] PEDIATRICS [address] [place] [address] Brittnee Hanna MD Critical Lab 10/16/2024 Refill [facility] [address], [place] [phone] Brittnee Hanna MD Mild intermittent asthma without complication 10/06/2024 Orders Only GENERIC EXTERNAL DATA DEPARTMENT Provider, Generic External Data 10/06/2024 Telephone [facility] [address], [place] [phone] Cipriano Campa MD Results 10/04/2024 Telephone [facility] [address], [place] [phone] Di Hyde, PharmD 10/04/2024 Orders Only GENERIC EXTERNAL DATA DEPARTMENT Provider, Generic External Data 10/03/2024 Refill [facility] [address] [place] [address] Brittnee Hanna MD Mild intermittent asthma without complication 09/21/2024 Telephone [facility] [address] [place] [phone] Brittnee Hanna MD 09/20/2024 Telephone [facility] [address] [place] [phone] Flory Kaufman, CHAD 09/19/2024 Refill [facility] [address] [place] [phone] Di Hyde, PharmD Essential hypertension 09/19/2024 Telephone [facility] [address] [place] [phone] Leilani Agarwal, RN Results 09/19/2024 Orders Only [facility] [address] [place] [phone] Brittnee Hanna MD Hypokalemia (Primary Dx) 09/19/2024 Orders Only GENERIC EXTERNAL DATA DEPARTMENT Provider, Generic External Data 09/19/2024 Telephone [facility] [address] [place] [phone] Brittnee Hanna MD Referral from Last 3 Months Immunizations Name Administration [...] Risk 60-74 years 1-dose series) 2023 Diabetes: Hemoglobin A1C 10/25/2024 024, 04/07/2024, 12/30/2023, [...] Additional history exists Lipid Panel 09/19/2025 09/19/2024, 020 10/2024, 04/05/2024, Additional history exists Tobacco Screening 11/21/2025 [...] Result Component 11.9(07/27/20 2:31 PM EST) No PierDi [place] PharmD Procedures Procedure Name Priority Date/Time Associated Diagnosis Comments GLUCOSE, WHOLE BLOOD Routine 12/13/2024 2:26 PM EDT OCT, RETINA - OU - BOTH EYES [...] hyperglycemia, with long-term current use of insulin ([facility]) GLUCOSE, WHOLE BLOOD Routine 10/04/2024 10:33 AM [...] Maintenance Results * (ABNORMAL) Glucose, Whole Blood (12/13/2024 2:26 PM EDT) Only the most recent of3 resultswithin the time period is included. Glucose, Whole Blood 302(H) 60 - 115 mg/dL [facility] Comment:METER #: [id number] Testing performed in the Endocrinology Department [address] , [address], [facility]. 12/13/2024 2:26 PM EDT 12/13/2024 2:32 PM EDT us Generic External Data Provider LAB BLOOD ORDERAB LES Final Result [facility] [address] [place] [phone] * OCT, Retina - OU - Both Eyes (11/07/2024 3:36 PM EDT) Narrative Martina Mancia, OD - 11/22/2024 2:44 PM EDT Test Not Needed us Martina Mancia OD OPHTH TOMOGRAPHY Final Result * (ABNORMAL) Basic Metabolic Panel (10/21/2024 10:30 AM EST) Only the most recent of2 resultswithin the time period is included. Sodium 133(L) 135 - 145 mmol/L [facility] Potassium 4.2 3.3 - 5.1 mmol/L [facility] Chloride 97 96 - 108 mmol/L [facility] Carbon Dioxide 27 22 - 29 mmol/L [facility] Anion Gap 13 12 - 20 [facility] Urea Nitrogen (BUN) 18(H) 9 - 16 mg/dL [facility] Creatinine, Serum 1.31 0.5 - 1.4 mg/dL [facility] Estimated Glomerular Filt Rate 41 [facility] Comment:Chronic Kidney Disea se: Estimated GFR < 60 mL/min/1.24v0Phgzsl Kidney Disease: Estimated GFR < 15 mL/min/1.73m2 Glucose 465(HH) 60 - 115 mg/dL [facility] Comment:Critical value for t est(s): GLUR Results called to amado back by: SETH Espinal RN Person calling: MATALIVV Date:10/21/2024 Time:12:50 Calcium 10.3(H) 8.4 - 10.2 mg/dL [facility] Blood Venous blood specimen / Unknown 10/21/2024 10:30 AM EST 10/21/2024 11:30 AM EST us Cipriano Ramriez MD LAB BLOOD ORDERABLES Final Result [facility] [address] [place] [phone] * Glutamic Acid Decarboxylase 65 Antibody (10/06/2024 1:46 PM EST) Glutamic acid decarboxylase Ab <5 <5 IU/mL [facility] Comment:This test was perfor med using the GAD65 WIN method,which is standardized against the Internationalreference preparation 97/550.THIS TEST WAS PERFORMED AT:[id number] [place] [address]LZAMLGCALINE GEIGER MD,PHD 10/06/2024 1:46 PM EST 10/06/2024 1:46 PM EST Generic External Data Provider LAB BLOOD ORDERAB LES Final Result Performing Organization Address [facility]/ZIP Co de Phone Number [facility] [address] [place] [address] [phone] * C-Peptide (10/06/2024 1:46 PM EST) Pathologist [facility] C-Peptide 1.37 0.80 - 3.85 ng/mL [facility] Comment:THIS TEST WAS PERFOR MED AT:[email or web address] [address] [address]MTRUQVISH LANDERS MD 10/06/2024 1:46 PM EST 10/06/2024 1:46 PM EST Generic External Data Provider LAB BLOOD ORDERAB LES Final Result Performing Organization Address City/[facility]/ZIP Co de Phone Number [facility] [address] [place] [address] [phone] * Islet Cell Antibody Screen W/Reflex to Titer (10/06/2024 1:46 PM EST) Pathologist [facility] Islet Cell Antibody Screen NEGATIVE NEGATIVE [facility] Comment:This test was develo ped and its analytical performancecharacteristics have been determined by [employer].It has not been cleared or approved by FDA. This assay hasbeen validated pursuant to the CLIA regulations and is usedfor clinical purposes.THIS TEST WAS PERFORMED AT:[email or web address] [place] [id number] ABBASI MD,PHD,CRISTI Islet Cell Antibody Titer TNP [facility] 10/06/2024 1:46 PM EST 10/06/2024 1:46 PM EST us Generic External Data Provider LAB BLOOD ORDERAB LES Final Result Performing Organization Address City/[facility]/ZIP Co de Phone Number [facility] [address] [place] [phone] * Albumin, Random Urine W/Creatinine (09/19/2024 10:00 AM EST) Creatinine, Urine 161.00 mg/dL [facility] Microalbumin Urine 17.0 mg/L [facility] Microalbum Creatinine Ratio Ur 10.5 <30 ug/mg cr [facility] Comment:Albumin/Creatinine R atio Reference Ranges: Normal: < 30 ug/mg creatinine Microalbuminuria: 30 - 300 ug/mg creatinineClinical Albuminuria: > 300 ug/mg creatinine Urine 09/19/2024 10:0 0 AM EST 09/19/2024 11:51 AM EST us Brittnee Hanna MD LAB URINE ORDERABLES Final Result Performing Organization Address [facility]/ZIP Co de Phone Number [facility] [address] [place] [phone] * (ABNORMAL) CBC auto differential (09/19/2024 10:00 AM EST) White Blood Count 7.1 4.8 - 10.8 X10*3/uL [facility] Red Blood Count 4.14(L) 4.20 - 5.50 X10*6/uL [facility] Hemoglobin 12.1 12.0 - 16.0 g/dl [facility] Hematocrit 35.6(L) 37.0 - 47.0 % [facility] Mean Corpuscular Volume 86.0 80.0 - 98.0 fL [facility] Mean Corpuscular Hemoglobin 29.2 27.0 - 33.0 pg [facility] Mean Corpuscular HGB Conc 34.0 31.0 - 35.0 g/dl [facility] Red Cell Distribution Width 11.5 11.0 - 16.0 % [facility] Platelet Count 436(H) 160 - 400 X10*3/uL [facility] Mean Platelet Volume 10.6 9.4 - 12.3 fL [facility] Neutrophils Percent Auto 69.4 45 - 73 % [facility] Imm Gran Pct Auto 0.3 0.0 - 0.4 % [facility] Lymphocytes Percent Auto 21.7 20 - 40 % [facility] Monocytes Percent Auto 6.3 2 - 11 % [facility] Eosinophils Percent Auto 2.0 0 - 4 % [facility] Basophils Percent Auto 0.3 0 - 2 % [facility] NRBC Pct Auto 0.0 0.0 - 0.2 /100WBC [facility] Neutrophils Absolute Auto 5.0 2.0 - 8.3 x10*3/uL [facility] Imm Gran Abs Auto 0.02 0.00 - 0.03 X10*3/uL [facility] Lymphocytes Absolute Auto 1.6 1.2 - 4.9 X10*3/uL [facility] Monocytes Absolute Auto 0.5 0.1 - 1.2 X10*3/uL [facility] Eosinophils Absolute Auto 0.1 0.0 - 0.4 X10*3/uL [facility] Basophils Absolute Auto 0.0 0.0 - 0.2 X10*3/uL [facility] NRBC Abs Auto 0.000 0.0 - 0.012 X10*3/uL [facility] 09/19/2024 10:0 0 AM EST 09/19/2024 11:32 AM EST us Generic External Data Provider LAB BLOOD ORDERAB LES Final Result [facility] [address] [place] [phone] * TSH (09/19/2024 10:00 AM EST) Thyroid Stimulating Hormone 0.76 0.32 - 4.0 uIU/mL [facility] Comment:TSH 3rd Generation ( [facility]) 09/19/2024 10:0 0 AM EST 09/19/2024 11:32 AM EST Generic External Data Provider LAB BLOOD ORDERAB LES Final Result Performing Organization Address [facility] de Phone Number [facility] [address] [place] [phone] * (ABNORMAL) Glucose (09/19/2024 10:00 AM EST) Glucose Fasting 290(H) 60 - 99 mg/dL [facility] Comment:A fasting glucose of 126 mg/dl or greater on more than oneoccasion is considered diagnostic of diabetes. 09/19/2024 10:0 0 AM EST 09/19/2024 11:32 AM EST Generic External Data Provider LAB BLOOD ORDERAB LES Final Result Performing Organization Address [facility] Number [facility] [address] [place] [phone] * Hepatic Function Panel (09/19/2024 10:00 AM EST) Only the most recent of2 resultswithin the time period is included. Bilirubin, Direct 0.1 0.0 - 0.5 mg/dL [facility] 09/19/2024 10:0 0 AM EST 09/19/2024 11:32 AM EST Generic External Data Provider LAB BLOOD ORDERAB LES Final Result Performing Organization Address [facility] Co de Phone Number [facility] [address] [place] [phone] * (ABNORMAL) Lipid Panel, Standard (09/19/2024 10:00 AM EST) Only the most recent of2 resultswithin the time period is included. Triglycerides 209(H) <150 mg/dL [facility] Comment:Desirable Triglyceri de: less than 150 mg/dLBorderline High Triglyceride 150-199 mg/dLHigh Triglyceride: 200-499 mg/dLVery High Triglyceride: greater than or equal to 5OO mg/dL Cholesterol 142 <200 mg/dL [facility] Comment:Desirable Cholestero l: less than 200 mg/dLBorderline High Cholesterol: 200-239 mg/dLHigh Cholesterol: greater than 239 mg/dL LDL Cholesterol Calculated 64 <100 mg/dL [facility] Comment:Desirable LDL: less than 100 mg/dLNear Optimal/Above Optimal LDL: 110- 129 mg/dLBorderline High LDL: 130-159 mg/dLHigh LDL: 160-189 mg/dLVery High LDL: greater than or equal to 190 mg/dL HDL Cholesterol 37(L) >40 mg/dL [facility] Comment:Desirable HDL: great er than 40 mg/dL Note: This HDL assay may give artificially low results in patients with liver disease. 09/19/2024 10:0 0 AM EST 09/19/2024 11:32 AM EST us Generic External Data Provider LAB BLOOD ORDERAB LES Final Result [facility] [address] [place] [phone] * (ABNORMAL) Comprehensive Metabolic Panel (09/19/2024 10:00 AM EST) Sodium 134(L) 135 - 145 mmol/L [facility] Potassium 3.0(L) 3.3 - 5.1 mmol/L [facility] Chloride 99 96 - 108 mmol/L [facility] Carbon Dioxide 26 22 - 29 mmol/L [facility] Anion Gap 12 12 - 20 [facility] Urea Nitrogen (BUN) 18(H) 9 - 16 mg/dL [facility] Creatinine, Serum 1.23 0.5 - 1.4 mg/dL [facility] Estimated Glomerular Filt Rate 44 [facility] Comment:Chronic Kidney Disea se: Estimated GFR < 60 mL/min/1.26a4Shcdbm Kidney Disease: Estimated GFR < 15 mL/min/1.73m2 Glucose 288(H) 60 - 115 mg/dL [facility] Calcium 8.9 8.4 - 10.2 mg/dL [facility] Bilirubin, Total 0.5 0.0 - 1.0 mg/dL [facility] [facility] Aspartate Amino Transferase 23 5 - 31 U/L [facility] Alanine Aminotransferase 27 0 - 31 U/L [facility] Total Protein 7.5 6.5 - 8.0 g/dL [facility] Albumin Level 4.1 3.5 - 5.0 g/dL [facility] Alkaline Phosphatase 108 39 - 117 U/L [facility] 09/19/2024 10:0 0 AM EST 09/19/2024 11:32 AM EST us Generic External Data Provider LAB BLOOD ORDERAB LES Final Result Performing Organization Address City/State/[facility] Co de Phone Number [facility] [address] [place] [phone] * (ABNORMAL) POCT HGB A1C (07/27/2024 2:31 PM EST) Hemoglobin A1C 11.9(A) 4.0 - 6.0 % QC Media Lot # [id number] Lot# Expiration Date [id number] Blood 07/27/2024 2:31 PM EST Brittnee Hanna MD POINT OF CARE TEST ENTER/E DIT ORDERABLES Final Result * BI Mammogram Screening Tomosynthesis Bilateral (07/24/2023 3:39 PM EST) Anatomical Region Laterality Modality Breast Bilateral Mammography 07/24/2023 3:39 PM EST Narrative 08/12/2023 3:43 AM EST ? [facility] ? [address] ?[place] [address] ? Mammography Report ? Signed ? Patient: Durant Sary,Cynthia ?MR#: M ?? [id number] ? : 1965 ?Acct:[id number] ? Age/Sex: 57 / F ?ADM Date: 07/24/23 ? Loc: HO.MAMMO ? Attending Dr: Brittnee Hanna MD ? Ordering Physician: Brittnee Hanna MD ?Results: 1N ?? egative ? Date of Service: 07/24/23 ?Follow Up: 1 Year From Orig ?? inal Mammogram ? Procedure(s): MM tomosynthesis screening BI ?? Accession Number(s): [id number] ? cc: Brittnee Hanna MD ? EXAMINATION: [...] by Marleen Peter MD in OV> ? 08/12/230 ? DD/ 1539 ? TD/TT: ? Ice Cutter: ? Procedure Note Kelle, Image - 08/12/2023 [facility] [address] [place] [address] Mammography Report Signed Patient: Javy Perry#: M [id number] : 1965Acct:[id number] Age/Sex: 57 / FADM Date: 07/24/23 Loc: HO.MAMMO Attending Dr: Brittnee Hanna MD Ordering Physician: Brittnee Hanna MDResults: 1N egative Date of Service: 07/24/23Follow Up: 1 Year From Orig inal Mammogram Procedure(s): MM tomosynthesis screening BI Accession Number(s): [id number] cc: Brittnee Hanna MD EXAMINATION: MM SCREENING [...] in OV> 08/12/23 0340 DD/ 1539 TD/TT: Ice Cutter: Brittnee Hanna MD [facility] BI PROCEDURES Edited R esult - Final * THINPREP TIS PAP AND HPV mRNA E6/E7, CT/NG, TRICH (05/16/2022 9:44 AM EDT) Chlamydia trachomatis RNA, TMA, Urogenital NOT DETECTED NOT DETECTED CONVERTED [employer] Clinical Information: None given CONVERTED [employer] COMMENT SEE COMMENT CONVERTE D [employer] Comment: The analytical performance characteristics of this assay, when used to test SurePath(TM) specimens have been determined by [employer]. The modifications have not been cleared or approved by the FDA. This assay has been validated pursuant to the CLIA regulations and is used for clinical purposes. ?? For additional information, please refer to https://education.[employer]/faq/HMD640 (This link is being provided for information/ educational purposes only.) ?? COMMENT SEE COMMENT SAGAR Mann [employer] Comment: EXPLANATORY NOTE: ? The Pap is [...] been evaluated with computer assisted technology. CONVERTED [employer] Osteopathic Resident: SEE COMMENT [employer] Comment: RXB, CT(ASCP) CT screening location: [address] ??[address] HPV nRNA E6/E7 Not Detected Not Detected [facility] Comment: Methodology: Welding Process Specialist-Mediated Amplification This assay detects E6/E7 viral messenger RNA (mRNA) from 14 high-risk HPV types (16,18,31,33,35,39,45,51,52,56,58,59,66,68). ? Cervical sources are required for HPV testing. If a vaginal source from a patient who has had a total hysterectomy with removal of cervix was ?? submitted, please contact the testing laboratory for alternative testing options. ?? For additional information, please refer to http://[employer]/faq/PWH590y2 (This link if provided for information/ educational [...] of this assay have been determined by [employer]. The modifications have not been cleared or approved by the FDA. This assay has been validated pursuant to the CLIA regulations and is used for clinical purposes. ?? For additional information, please refer to http://education.[employer]/ faq/Trichomonastma (This link is being provided for [...] Blood Venous blood specimen / Unknown 02/22/2014 [facility] Provider LAB BLOOD ORDERABLES Emelia l Result from Last 3 Months or Most Recently Relevant to Health Maintenance Insurance [facility] [address] [place] [phone] Advance Directives Documents on File Type Date Recorded Patient Assistant Infant Teacher Expl anation Advance Directives and Living Will 04/07/2024 Health Care Proxy 04/07/24 Care Teams Inspector Dials Relationship Specialty Start Date End Date Rusk, MD Brittnee [address] [place] [address] PCP - General Family Medicine 08/17/18 Martina Mancia OD [address] [place] [phone] Optometry 07/26/24 Donna Sutton Camp CounselorSkiver Uppers Or Linings 05/06/[address] [facility] Endocrinology Endocrinology 11/04/24
--- OUTSIDE RECORDS SUMMARY | 2024-12-13 16:27 | XMS_ITS | Encounter Summary ---
Author Organization [employer] Address [address] [facility]t [place] [address] Care Team Providers Care Activities Director Scouting Name Role Phone Brittnee Hanna MD Primary Care Provider +- [phone] Di Hyde PharmD Unavailable [phone] Martina Mancia OD Unavailable [phone] Encounter Details Date Type Department Care Team (Late st Contact Info) Description 08/25/2022 Orders Only [facility] P[facility]S [address] [place] [address] Jeana Vital LPN Social History Tobacco Use [...] Bilirubin, Total 0.3 0.0 - 1.0 mg/dL [facility] Bilirubin, Direct 0.1 0.0 - 0.5 mg/dL [facility] Aspartate Amino Transferase 18 5 - 31 U/L [facility] Alanine Aminotransferase 33(H) 0 - 31 U/L [facility] Total Protein 7.4 6.5 - 8.0 g/dL [facility] Albumin Level 4.3 3.5 - 5.0 g/dL [facility] Alkaline Phosphatase 142(H) 39 - 117 U/L [facility] 07/21/2023 12:4 7 PM EST 07/21/2023 3:59 PM EST us Brittnee Hanna MD LAB BLOOD ORDERABLES Final Result [facility] [address] [place] [address] [phone] documented in this encounter Visit Diagnoses Not on filedocumented in this encounter Care Teams Activities Director Scouting Relationship Specialty Start Date End Date Brittnee Hanna MD [address] [place] [address] PCP - General Family Medicine 08/17/18 Di Hyde PharmD [address] [place] [address] Pharmacist Internal Medicine 01/06/23 08/31/24 Martina Mancia OD [address] [place] [address] Optometry 07/26/24 Donna Sutton Telemarketer SupervisorDoor Repairman 05/06/24 Bety Benson NP [facility] Endocrinology Endocrinology 11/04/24 documented as of this encounter
--- OUTSIDE RECORDS SUMMARY | 2024-12-13 16:27 | XMS_ITS | Encounter Summary ---
Author Organization [employer] Address [address] [facility] [address] [place] [address] Care Team Providers Care Senior Engineering Team Leader Name Role Phone Brittnee Hanna MD Primary Care Provider [phone]- [phone] Di Hyde PharmD Unavailable Martina Mancia OD Unavailable Reason for Visit * Reason Onset Date Comments triage 07/21/2022 Encounter Details Date Type Department Care Team ([facility] st Contact Info) Description 07/21/2022 Telephone [facility] MEDICINE [address] [place] [address] Brittnee Hanna MD [address] [place], [place] [phone] triage Social History Tobacco Use Types Packs/Day [...] and depression since losing MH services with [facility]. Per pt has not had any follow up with therapist or psychiatrist. Was supposed to have an appt on 06/15 but when called to r/s was never answered. Has been without meds. Per pt denies any SI/HI. Just increased anxiety. Pt advised that no appts in clinic tomorrow. Pt to come into [facility] tomorrow to speak with on site [facility] clinician and see if [facility] provider (advised cannot guarantee Dr. Hanna) [...] accepted this outcome Please contact pt at [phone] speaks Moroccan documented in this encounter Plan of Treatment Not on file documented as of this encounter Visit Diagnoses Not on filedocumented in this encounter Care Teams Senior Engineering Team Leader Relationship Specialty Start Date End Date Brittnee Hanna MD [address] [place] [address] PCP - General Family Medicine 08/17/18 Di Hyde, ShabbirD [address] [place] [address] Pharmacist Internal Medicine 01/06/23 08/31/24 Martina Mancia OD [address] [place] [address] Optometry 07/26/24 Donna Sutton Bar Waiter/WaitressBoxer Operator 05/06/24 Bety Benson NP [facility] Endocrinology Endocrinology 11/04/24 documented as of this encounter
--- OUTSIDE RECORDS SUMMARY | 2024-12-13 16:27 | XMS_ITS | Encounter Summary ---
Author Organization [employer] Address [address] [facility] [place] [address] Care Team Providers Care Kettle Chipper Name Role Phone Brittnee Hanna MD Primary Care Provider [phone]- [phone] Martina Mancia OD Unavailable [phone] Reason for Visit * Reason Comments Med Refill Encounter Details Date Type Department Care Team ([facility] st Contact Info) Description 10/03/[address] [facility] MEDICINE [address] [place], [place] [phone] Brittnee Hanna MD [address] [place] [address] Mild intermittent asthma without complication Social History [...] documented as of this encounter Care Teams Kettle Chipper Relationship Specialty Start Date End Date Brittnee Hanna MD [address] [place] [address] PCP - General Family Medicine 08/17/18 Martina Mancia OD [address] [place] [address] Optometry 07/26/24 Donna Sutton Insulator TesterCloth Examiner Hand 05/06/24 Bety Benson NP [facility] Endocrinology Endocrinology 11/04/24 documented as of this encounter
--- OUTSIDE RECORDS SUMMARY | 2024-12-13 16:27 | XMS_ITS | Encounter Summary ---
Author Organization [employer]) [facility] Address [address] [facility] [address] [place] [address] Care Team Providers Care Propulsion Engineer Name Role Phone Brittnee Hanna MD Primary Care Provider +- [phone] Di Hyde PharmD Unavailable [phone] Martina Mancia OD Unavailable [phone] Encounter Details Date Type Department Care Team ([facility] st Contact Info) Description 09/22/2022 Abstract [facility] MEDICINE [address] [place] [address] Brittnee Hanna MD [address] [place], [place] [phone] Social History Tobacco Use Types Packs/Day Years [...] Blood Venous blood specimen / Unknown Result [facility] Provider LAB BLOOD ORDERABLES Emelia l Result * Basic Metabolic Panel (06/05/2022) Creatinine 1.0 0.5 - 1.1 mg/dL Blood Venous blood specimen / Unknown Result [facility] Provider LAB BLOOD ORDERABLES Emelia l Result * (ABNORMAL) Lipid Panel, Standard (06/05/2022) Triglycerides 163(A) 40 - 160 mg/dL Cholesterol 209(A) 0 - 200 mg/dL HDL Cholesterol 70 35 - 70 mg/dL LDL Cholesterol 111 mg/dL Blood Venous blood specimen / Unknown [facility] Provider LAB BLOOD ORDERABLES Emelia l Result * Pap Smear (05/16/2022 12:00 AM EDT) Swab [facility] Provider LAB CYTOLOGY ORDERABLES F inal Result [facility] * Colonoscopy (08/21/2020) Colonoscopy hyperplastic polyp Dr. Olivarez Historical Provider HEALTH MAINTENANCE Final Result * HIV-1 antibody, EIA (04/25/2019) External HIV-1 Antibody Negative Blood Venous blood specimen / Unknown Result [facility] Provider LAB BLOOD ORDERABLES Emelia l Result * Mammography (06/14/2018) HM Mammogram normal Anatomical Region Laterality Modality Other [facility] Provider HEALTH MAINTENANCE Final Result * Hepatitis C Antibody with Reflex to HCV, RNA, Quantitative, Real-Time PCR (02/22/2014) Blood Venous blood specimen / Unknown 02/22/2014 Result [facility] Provider LAB BLOOD ORDERABLES Emelia l Result documented in this encounter Visit Diagnoses Not on filedocumented in this encounter Additional Health Concerns Assessment Noted Time PHQ-9 Depression Total Score: 0 09/22/19 23 9:47 AM EST documented as of this encounter Care Teams Propulsion Engineer Relationship Specialty Start Date End Date Brittnee Hanna MD [address] [place] [address] PCP - General Family Medicine 08/17/18 Di Hyde PharmD [address] [place] [address] Pharmacist Internal Medicine 01/06/23 08/31/24 Martina Mancia OD [address] [place] [address] Optometry 07/26/24 Donna Sutton Gravure Press Set Up OperatorRn Bsn 05/06/24 Bety Benson NP [facility] Endocrinology Endocrinology 11/04/24 documented as of this encounter
--- OUTSIDE RECORDS SUMMARY | 2024-12-13 16:27 | XMS_ITS | Encounter Summary ---
Author Organization [employer] Address [address] 7t [place] [address] Care Team Providers Care Wool Washer Feeder Name Role Phone Brittnee Hanna MD Primary Care Provider [phone]- [phone] GavinoMartina OD Unavailable [phone] Encounter Details Date Type Department Care Team ([facility] Contact Info) Description 11/01/2024 Orders Only [facility] MEDICINE [address] [place] [address] Nguyen Orourke MD [address] [place] [address] Type 2 diabetes mellitus with other circulatory complication, with long-term current use of insulin ([facility]) Social History Tobacco Use Types Packs/Day [...] complication, with long-term current use of insulin ([facility]) documented in this encounter Additional Health Concerns Assessment Noted Time PHQ-9 Depression Total Score: 15 024 10:35 AM EDT documented as of this encounter Care Teams Wool Washer Feeder Relationship Specialty Start Date End Date Brittnee Hanna MD [address] [place] [address] PCP - General Family Medicine 08/17/18 Martina Mancia OD [address] [place] [address] Optometry 07/26/24 Donna Sutton Securities Lending TraderLabor/Excavator 05/06/24 Bety Benson NP [facility] Endocrinology Endocrinology 11/04/24 documented as of this encounter
--- OUTSIDE RECORDS SUMMARY | 2024-12-13 16:27 | XMS_ITS | Encounter Summary ---
Author Organization [employer] Address [address] [facility] [address]t [place] [address] Care Team Providers Care Regulatory Auditor Name Role Phone Brittnee Hanna MD Primary Care Provider +1- [phone] Tan Mancian OD Unavailable [phone] Encounter Details Date Type Department Care Team ([facility] Contact Info) Description 12/13/2024 Orders Only GENERIC EXTERNAL DATA [...] Pressure 112/58(2024 3:02 PM EST) No Bhupendras-Di Chapman PharmD Hemoglobin A1c < 7 Result Component 11.9(07/27/20 2:31 PM EST) No Bhupendras-Di Chapman PharmD documented as of this encounter Procedures Procedure Name Priority Date/Time Associated Diagnosis Comments GLUCOSE, WHOLE BLOOD Routine 12/13/2024 2:26 PM EDT documented in this encounter Results * (ABNORMAL) Glucose, Whole Blood (12/13/2024 2:26 PM EDT) Glucose, Whole Blood 302(H) 60 - 115 mg/dL [facility] Comment:METER #: [id number] Testing performed in the Endocrinology Department [address] , [address], [facility]. 12/13/2024 2:26 PM EDT 12/13/2024 2:32 PM EDT us Generic External Data Provider LAB BLOOD ORDERAB LES Final Result [facility] [address] [place] [phone] documented in this encounter Visit Diagnoses Not on filedocumented in this encounter Additional Health Concerns Assessment Noted Time PHQ-9 Depression Total Score: 15 024 10:35 AM EDT documented as of this encounter Care Teams Regulatory Auditor Relationship Specialty Start Date End Date Brittnee Hanna MD [address] [place] [address] PCP - General Family Medicine 08/17/18 Martina Mancia OD [address] [place] [address] Optometry 07/26/24 Donna Sutton Supervisor Assembly DepartmentRodeo Performer 05/06/24 Bety Benson, [facility] Endocrinology Endocrinology 11/04/24 documented as of this encounter
--- OUTSIDE RECORDS SUMMARY | 2024-12-13 16:27 | XMS_ITS | Encounter Summary ---
Author Organization [employer] Address [address] [place] [address] Care Team Providers Care Shredder Picker Name Role Phone Brittnee Hanna MD Primary Care Provider +1- [phone] Di Hyde PharmD Unavailable Martina Mancia OD Unavailable [phone] Reason for Visit * Reason Onset Date Comments Appointment Request 07/18/2024 Encounter Details Date Type Department Care Team ([facility] st Contact Info) Description 07/18/[address] [facility] MEDICINE [address] [place] [address] Brittnee Hanna MD [address] [place], [place] [phone] Appointment Request Social History Tobacco Use Types [...] documented as of this encounter Care Teams Shredder Picker Relationship Specialty Start Date End Date Brittnee Hanna MD [address] [place] [address] PCP - General Family Medicine 08/17/18 Di Hyde, PharmD [address] [place] [address] Pharmacist Internal Medicine 01/06/23 08/31/24 Martina Mancia OD [address] [place] [address] Optometry 07/26/24 Donna Sutton Music Department ChairDictaphone Operator 05/06/24 Bety Benson, [facility] Endocrinology Endocrinology 11/04/24 documented as of this encounter
--- OUTSIDE RECORDS SUMMARY | 2024-12-13 16:27 | XMS_ITS | Encounter Summary ---
Author Organization [employer] Address [address] [facility] [facility] [address] [place] [address] Care Team Providers Care Loss Control Engineer Name Role Phone Brittnee Hanna MD Primary Care Provider +- [phone] Di Hyde PharmD Unavailable Martina Mancia OD Unavailable [phone] Encounter Details Date Type Department Care Team ([facility] st Contact Info) Description 05/24/2024 Orders Only [facility] [address] [place] [address] Brittnee Hanna MD [address] [place] [address] Social History Tobacco Use Types Packs/Day Years [...] documented as of this encounter Care Teams Loss Control Engineer Relationship Specialty Start Date End Date Brittnee Hanna MD [address] [place] [address] PCP - General Family Medicine 08/17/18 Di Hyde, PharmD [address] [place] [address] Pharmacist Internal Medicine 01/06/23 08/31/24 Martina Mancia OD [address] [place] [address] Optometry 07/26/24 Donna Sutton Shipping LeadCarbider 05/06/24 Bety Benson NP [facility] Endocrinology Endocrinology 11/04/24 documented as of this encounter
--- OUTSIDE RECORDS SUMMARY | 2024-12-13 16:27 | XMS_ITS | Encounter Summary ---
Author Organization [employer] Address [address] [place] [address] Care Team Providers Care Travel Trailer Components Assembler Name Role Phone Brittnee Hanna MD Primary Care Provider +- [phone] Di Hyde PharmD Unavailable [phone] Martina Mancia OD Unavailable [phone] Encounter Details Date Type Department Care Team ([facility] st Contact Info) Description 04/27/2024 Abstract [facility] MEDICINE [address] [place] [address] Brittnee Hanna MD [address] [place], [place] [phone] Social History Tobacco Use Types Packs/Day Years [...] documented as of this encounter Care Teams Travel Trailer Components Assembler Relationship Specialty Start Date End Date Brittnee Hanna MD [address] [place] [address] PCP - General Family Medicine 08/17/18 Di Hyde, PharmD [address] [place] [address] Pharmacist Internal Medicine 01/06/23 08/31/24 Martina Mancia OD [address] [place] [address] Optometry 07/26/24 Donna Sutton Basket MakerCured Meats Supervisor 05/06/24 Bety Benson NP [facility] Endocrinology Endocrinology 11/04/24 documented as of this encounter
--- OUTSIDE RECORDS SUMMARY | 2024-12-13 16:27 | XMS_ITS | Encounter Summary ---
Author Organization [employer] Address [address] [facility] [address] [facility] [address] [place] [address] Care Team Providers Care Manager Corporate Responsibility Name Role Phone Brittnee Hanna MD Primary Care Provider [phone]- [phone] Di Hyde PharmD Unavailable Martina Mancia OD Unavailable [phone] Reason for Visit * Reason Comments Med Refill Encounter Details Date Type Department Care Team (Late st Contact Info) Description 05/12/2023 Refill [facility] MED & PEDS [address] [place] [address] Cipriano Campa MD [address] [facility] [place] [address] Type 2 diabetes mellitus with other circulatory complication, with long-term current use of insulin ([facility]) Social History Tobacco Use Types Packs/Day [...] complication, with long-term current use of insulin ([facility]) documented in this encounter Additional Health Concerns Assessment Noted Time PHQ-9 Depression Total Score: 21 023 9:47 AM EDT documented as of this encounter Care Teams Manager Corporate Responsibility Relationship Specialty Start Date End Date Brittnee Hanna MD [address] [place] [address] PCP - General Family Medicine 08/17/18 Di Hyde, ShabbirD [address] [place] [address] Pharmacist Internal Medicine 01/06/23 08/31/24 Martina Mancia OD [address] [place] [address] Optometry 07/26/24 Donna Sutton Sales OperationsStation Baggage Agent 05/06/24 Bety Benson NP [facility] Endocrinology Endocrinology 11/04/24 documented as of this encounter
== END 2024-12-13 14:59 | disposition home or self-care (01) ==
LOC: HO.ENCR 14:14
PROVIDERS: PCP Family Medicine; Visit Provider Physician Assistant Medical
DX: E11.9 Type 2 diabetes mellitus without complications (principal); Z79.4 Long term (current) use of insulin

== ENCOUNTER → 2024-12-13 14:14 | Outpatient (BNVA) | payer MEDICAID, SELFPAY | PROVIDERS: PCP Family Medicine; Visit Provider Physician Assistant Medical | DX: E11.9 Type 2 diabetes mellitus without complications (principal); Z79.4 Long term (current) use of insulin; Z79.85 Long-term (current) use of injectable non-insulin antidiabetic drugs | CPT/HCPCS: 82947; 99212 ==

== ENCOUNTER 2025-01-02 13:26 | Outpatient (AMB) | payer MEDICAID, SELFPAY ==
[2025-01-02 13:30] VITALS: BP 114/72; BMI 21.4
--- NOTE | 2025-01-02 13:30 | MHC.OFFVIS ---
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 Allergy (Mild, Uncoded 01/02/25 13:32) Itchy Eyes Medication List - Last Reconciled 01/02/25 by KAREN TothC albuterol sulfate 90 mcg/actuation (ProAir HFA) 2 puffs inhalation Q4-6H PRN amlodipine 5 mg PO QAM aripiprazole 2 mg PO BEDTIME aspirin 81 mg PO DAILY atorvastatin 80 mg PO QPM bismuth subsalicylate 2 tabs PO QID blood sugar diagnostic (FreeStyle Precision [place] Strips) As directed blood-glucose meter (FreeStyle [place] Lite kit) As directed blood-glucose sensor (FreeStyle Ric 3 Sensor device) apply new sensor every 14 days blood-glucose,project scheduler,cont (FreeStyle Ric 3 [place]) Use daily to monitor blood glucose levels continuously. dextrose (TRUEplus Glucose) 15 grams (32 mL) PO Q15M PRN doxepin 25 mg PO BEDTIME dulaglutide (Trulicity) 1.5 mg (0.5 mL) subcut QWEEK ferrous sulfate (FeroSul) 325 mg PO Q OTHER DAY flash glucose sensor (FreeStyle Ric 2 Sensor kit) As directed fluticasone propion-salmeterol 250-50 mcg/dose (Advair Diskus) 1 puff inhalation BID gabapentin 100 mg PO BID ibuprofen 600 mg PO TID PRN insulin glargine (Lantus Solostar U-100 Insulin) 40 units subcut BEDTIME insulin lispro 15 units subcut TIDWMEAL isosorbide mononitrate ER 30 mg PO DAILY lancets (TRUEplus Lancets) As directed lisinopril 20 mg PO DAILY loratadine 1 tab PO QAM metoprolol succinate ER 1 tab PO QAM olanzapine 7.5 mg PO BEDTIME pantoprazole 20 mg PO BID 2 weeks pen needle, diabetic (Pentips Pen Needle) As directed prazosin 1 mg PO BEDTIME sertraline 50 mg PO QAM tiotropium bromide (Spiriva with HandiHaler) 1 cap inhalation DAILY HPI HPI r/s 11/25/24 f/u req by /cad,dm/km: Details: Cristhian a 59-year-old female With past medical history of hypertension, hyperlipidemia, anterior STEMI 2013 with PCI to the LAD. she was last seen by one of our providers on 01/08/2022. today she reports that she has been noticing some tightness in her chest when she does ambulation. She denies chest discomfort at rest. She has periodic dyspnea that occur separately from the chest tightness. No heart palpitations, lightheadedness, presyncope, syncope. She says she has been taking all her meds as directed. She does not do any routine exercises or exertional activities. 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 [facility] Medical History (Updated 01/02/25 @ 17:07 by MARLYN Toth) Type II diabetes with care home use of insulin Symptomatic anemia GI bleed Diabetes Anxiety Depression Asthma History of heart attack CAD (coronary artery disease) Hypercholesteremia HTN (hypertension) Surgical History (Updated 01/02/25 @ 17:39 by Allyson Armando NP-C) Stented coronary artery Hx of colonoscopy (04/11/14) Family History Father Diabetes Hypercholesteremia HTN (hypertension) Mother HTN (hypertension) Diabetes Hypercholesteremia Brother HTN (hypertension) Diabetes Social History Household Members: None Housing: House Do you presently have visiting nurse or other home services: Yes (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) Alcohol intake: current Alcohol intake frequency: does not drink Patient Tobacco Use Status: Former Tobacco user service: No Current occupational status: disabled Review of Systems Const All systems reviewed & are unremarkable except as noted in HPI and below ENT Denies dizziness Card Reports chest pain, Denies chest pain at rest, Reports chest pain with activity, Denies rapid heart rate, Denies pedal edema, Denies edema, Denies leg edema, Denies lightheadedness, Denies palpitations, Denies dyspnea, Denies dyspnea on exertion and Denies orthopnea Resp Denies cough, Denies dyspnea and Denies dyspnea on exertion GI Denies hematochezia and Denies change in stool character Musc Denies abnormal gait, Denies limited range of motion, Denies muscle cramps, Denies muscle weakness, Denies numbness, Denies radiating pain into limb, Denies stiffness and Denies tingling Neuro Denies abnormal gait, Denies dizziness, Denies numbness and Denies tingling Endo Denies palpitations Physical Exam Vital Signs: Last Vital Signs BP 114/72 01/02/25 13:30 BMI result Body Mass Index 21.4 Const General: cooperative, healthy appearing, comfortable and no acute distress Orientation/consciousness: patient oriented x3 Neck Neck: Yes normal visual inspection Resp Effort & Inspection: normal respiratory effort Auscultation: clear to auscultation bilaterally, no rales, no rhonchi and no wheezes Cardio Rate: regular rate Rhythm: regular rhythm Heart sounds: S1 normal heart sound present, S2 normal heart sound present, no gallops, no murmurs and no rubs Neuro General: patient oriented x3 Extrem General: Yes normal to inspection Psych Appearance: grossly normal Mental Status: mental status grossly normal Speech and movement: Normal speech and movement present Assessment & Plan Assessment & Plan (1) CAD (coronary artery disease): Comment: s/p stent, asa and plavix Code(s): I25.10 - Atherosclerotic heart disease of [place] coronary artery without angina pectoris Category: Medical Plan: Known history of CAD with prior anterior STEMI 2013 with PCI to the LAD. She has not been seen by us in 3 years and is now reporting chest discomfort at times with with ambulation. Last EKG shows sinus rhythm with nonspecific T-wave abnormalities. Will order an echocardiogram and pharmacological nuclear stress test. She tells me she will not be able to walk on a treadmill. Continue aspirin, high-dose atorvastatin with ideal LDL goal less than 70, triple antianginals metoprolol, amlodipine and isosorbide. Emergency care if needed for symptoms. Cardiology follow-up when test results are available, sooner if needed. (2) Stented coronary artery: Comment: Lad stent 2013 Code(s): Z95.5 - Presence of coronary angioplasty implant and graft Category: Surgical (3) Chest discomfort: Code(s): R07.89 - Other chest pain Category: Medical (4) HTN (hypertension): Code(s): I10 - Essential (primary) hypertension Category: Medical Plan: Blood pressure goal less than 130/80, well controlled at present. (5) Hypercholesteremia: Code(s): E78.00 - Pure hypercholesterolemia, unspecified Category: Medical Plan Order stress test and echocardiogram to evaluate cardiac function and stent status. Continue current medications and ensure adequate hydration. Advise emergency care if chest discomfort persists. Schedule follow-up to review test results. I discussed with the patient my concern regarding her chest discomfort which necessitates further evaluation of her cardiac function, especially given her medical history. I outlined the plan to order a stress test and an echocardiogram, explaining they will help determine if her prior stent is functioning properly. We discussed the importance of continuing her current medications and the risks associated with dehydration, potentially leading to hypotension and dizziness. The patient was instructed to stop physical activity and seek emergency care if her chest discomfort does not resolve. Follow-up after the testing was planned, and the patient consented to the proposed evaluations. Patient was informed and verbally consented to the use of an ambient scribe for clinic note documentation during this visit. Orders: Orders CA echo transthoracic complete Today I25.10 - Atherosclerotic heart disease of [place] coronary artery without angina pectoris, R07.89 - Other chest pain, Z95.5 - Presence of coronary angioplasty implant and graft NM cardiolite stress test Today I25.10 - Atherosclerotic heart disease of [place] coronary artery without angina pectoris, R07.89 - Other chest pain, Z95.5 - Presence of coronary angioplasty implant and graft CA lexiscan stress w carly Today I25.10 - Atherosclerotic heart disease of [place] coronary artery without angina pectoris, R07.89 - Other chest pain, Z95.5 - Presence of coronary angioplasty implant and graft Patient Instructions: - Continue taking all prescribed medications as directed. - Stay well-hydrated to prevent low blood pressure. - Stop activity and rest if you experience chest discomfort during exertion. - Go to the emergency room if chest discomfort persists and is not tolerable. - Await a call for scheduled tests, and attend follow-up to discuss results. Coding Level of Care Code Est Pt Level 4 (31862) Complex EM visit Add On G2211 Diagnoses CAD (coronary artery disease) I25.10 Stented coronary artery Z95.5 Chest discomfort R07.89 HTN (hypertension) I10 Hypercholesteremia E78.00 Time Spent (min) 32
== END 2025-01-02 14:10 | disposition home or self-care (01) ==
LOC: HO.HCS 13:27
PROVIDERS: PCP Family Medicine; Visit Provider Nurse Practitioner Family
DX: I25.10 Atherosclerotic heart disease of native coronary artery without angina pectoris (principal); Z95.5 Presence of coronary angioplasty implant and graft; R07.89 Other chest pain; I10 Essential (primary) hypertension; E78.00 Pure hypercholesterolemia, unspecified
CPT/HCPCS: 99214

== ENCOUNTER → 2025-01-02 13:26 | Outpatient (BNVA) | payer MEDICAID, SELFPAY | PROVIDERS: PCP Family Medicine; Visit Provider Nurse Practitioner Family | DX: I25.10 Atherosclerotic heart disease of native coronary artery without angina pectoris (principal); I10 Essential (primary) hypertension; E78.00 Pure hypercholesterolemia, unspecified; R07.89 Other chest pain; Z95.5 Presence of coronary angioplasty implant and graft | CPT/HCPCS: 99212 ==

== ENCOUNTER 2025-01-10 15:14 | Outpatient (AMB) | payer MEDICAID, SELFPAY ==
--- NOTE | 2025-01-10 15:17 | MHC.OFFVIS ---
Vital Signs 01/10/25 15:19 Height 5 ft 2 in Weight 123 lb 3.814 oz BMI 22.5 BP 124/64 Blood Pressure Location Rt brachial Position Sitting Pulse 84 Pulse Source Pulse Oximeter Intake Visit Reasons: Type II diabetes Intake Note: Patient present today to follow up on Type 2 Diabetes Mellitus. Last Diabetic Eye exam: October 2024 Last Podiatry Visit: Does not see a Leaf Stamper Random Glucose: 391 mg/dl HgA1C: 10.8% 01/10/2025 Intelligence Research Specialist Required: Yes Intelligence Research Specialist Language: Director Of Marketing And Promotions Services: Intelligence Research Specialist Present Intelligence Research Specialist Name: Michael [id number] Information Interpreted: non-clinical & clinical Accompanied by: Self / Same As Patient Allergies shellfish derived [SHELLFISH DERIVED] Allergy (Severe, Verified 01/10/25 15:20) Swelling Penicillins Allergy (Mild, Verified 01/10/25 15:20) UNKNOWN - RXN CHILD naproxen [NAPROXEN] Allergy (Unknown, Verified 01/10/25 15:20) 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 She was diagnosed with type 2 diabetes 17 years ago. Family history of Type I: none Family history of Type 2: parents History of DKA - admitted 03/17/2022 for DKA in the setting of acute cystitis. Reviewed Ric 3+ download 12/28/2026 CGM active 93% Average glucose 311 Glucose management indicator 10.7% Glucose variability 26.5% Very high 77% High 14% Target range 9% 0% hypoglycemia. The pattern is hyperglycemia throughout 24 hours. Hemoglobin a1c today is 10.8% down from 12.7 % on 10/04/24. Current medication regimen: Trulicity 1.5 mg, Lantus 40 nightly, insulin lispro 15 units before meals (eats 3 meals daily, and she injects insulin before she eats) Past medications: Patient denies Compliance issues: Pharmacy never filled the Trulicity 1.5 mg so she has been out of this for a month. POC is 391 today. Denies symptoms of hyperglycemia. Diet: Breakfast-oatmeal, water apple or banana for snack Lunch-tuna sandwich, water Dinner-potato, plantains, fish, chicken, pasta or rice Snacks/desserts:none No alcohol, soda or juice Hypoglycemia symptoms: Rare, treats with apple juice Hyperglycemia symptoms: tired, dry mouth, polydipsia, polyuria Eye exam: October 2024 Microvascular complications: neuropathy, nephropathy, no known retinopathy Macrovascular complications: Coronary artery disease ROS: Constitutional: Denies fevers, chills, night sweats Eyes: Denies vision changes, denies blurry vision Respiratory: No shortness of breath, cough or sputum production. Cardiovascular: No chest pain, chest pressure or chest discomfort. No palpitations or pedal edema. Gastrointestinal: Denies nausea, vomiting, diarrhea, abdominal pain, acid reflux. Denies constipation. Neurologic: No headache or dizziness. She endorses tingling pain in her toes. She is on gabapentin. Endocrine: See HPI Physical exam: Constitutional: Alert, in no distress. Eyes: Pupils are equal, round and reactive to light. Neck: Supple, Full range of motion. No lymphadenopathy. No palpable thyroid masses. Respiratory: Clear to auscultation. Cardiovascular: S1 S2 regular. No murmurs. No carotid bruits. 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 Symptomatic anemia GI bleed Diabetes Anxiety Depression Asthma History of heart attack CAD (coronary artery disease) Hypercholesteremia HTN (hypertension) Surgical History Stented coronary artery Hx of colonoscopy (04/11/14) Family History Father Diabetes Hypercholesteremia HTN (hypertension) Mother HTN (hypertension) Diabetes Hypercholesteremia Brother HTN (hypertension) Diabetes Social History Household Members: None Housing: House Do you presently have visiting nurse 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) Alcohol intake: current Alcohol intake frequency: does not drink Patient Tobacco Use Status: Former Tobacco user service: No Current occupational status: disabled Physical Exam Vital Signs: Last Vital Signs Pulse 84 01/10/25 15:19 BP 124/64 01/10/25 15:19 BMI result Body Mass Index 22.5 Office Procedures Glucose Monitoring Details Details: See HPI 20332 - Glucose monitoring, continuous-physician I&R Procedure code (CPT) selection complete Results AMB Hemoglobin A1c AMB Hemoglobin A1c 10.8 % Last Edit by MONTANA Barker on 01/10/25 15:36 Results Reviewed Results Reviewed: Laboratory Last Values Glucose (Clinic) 391 mg/dL (60-115) H* 01/10/25 15:25 Laboratory Tests 01/07/22 06/18/24 09/19/24 13:22 12:51 10:00 Creatinine 0.94 1.23 Estimated GFR > 60 44 B-Natriuretic Peptide 128 H Triglycerides 206 H Cholesterol 141 LDL Cholesterol, Calc 65 HDL Cholesterol 35 L TSH 0.76 Urine Creatinine 161.00 Urine Microalbumin 17.0 Microalb/Creat Ratio 10.5 Laboratory Tests 10/06/24 13:46 C-Peptide 1.37 Islet Cell Ab Screen NEGATIVE JEREMIAS Antibody <5 Assessment & Plan Assessment & Plan (1) Type II diabetes with mcc use of insulin: Code(s): E11.9 - Type 2 diabetes mellitus without complications; Z79.4 - manager long term care (current) use of insulin Category: Medical Plan In summary this is a 59-year-old diabetic female with poor albeit improving glycemic control on basal bolus insulin and Trulicity. Unfortunately the pharmacy did not dispense the prescription for Trulicity when we titrated the dose a month ago, and she has been out of it. We contacted the pharmacy, and she is able to pick this up in an hour. I let her know that if this happens again she should call the office. Advised patient to bring her CGM to all appointments so we can review data and adjust her medications. Increase Lantus from 40 units to 44 units nightly. Continue insulin lispro 15 units before meals. Start Trulicity 1.5 mg weekly. If you experience low blood sugar, treat this by eating a chewable fruit candy like skittles or jelly beans (about 8 pieces), 4 ounces (1/2 cup) of fruit juice (not diet), 1 tablespoon of honey or 4 glucose tablets or a 15 g glucose gel packet. If your blood sugar is under 55, take double the amount of one of the above. Recheck your blood sugar in 15 minutes. I prescribed glucose gel since she is edentulate. Patient should not drive if she does not have a reliable way to check her blood sugar or has symptoms of hypoglycemia. Discussed pathophysiology of Type II Diabetes Mellitus with the patient in detail.? I explained the exterminator helper risks and complications associated with uncontrolled diabetes including nephropathy, neuropathy, peripheral vascular disease, retinopathy, increased risk of heart disease and stroke.? Follow up in 3-4 weeks for type 2 diabetes. Orders: Orders AMB Hemoglobin A1c Today E11.9 - Type 2 diabetes mellitus without complications, Z79.4 - manager long term care (current) use of insulin AMB Glucose Monitoring Today E11.9 - Type 2 diabetes mellitus without complications Medications: Refilled dulaglutide (Trulicity) 1.5 mg (0.5 mL) subcut QWEEK 2 mL 2RF Patient Instructions: Start Trulicity 1.5 mg Increase Lantus to 44 units nightly, Continue insulin lispro 15 units before meals If you experience low blood sugar, treat this by eating a chewable fruit candy like skittles or jelly beans (about 8 pieces), 4 ounces (1/2 cup) of fruit juice (not diet), 1 tablespoon of honey or 4 glucose tablets. If your blood sugar is under 55, take double the amount of one of the above. Recheck your blood sugar in 15 minutes. Comience con Trulicity 1.5 mg. Aumente la dosis de Lantus a 44 unidades cada noche. Contin?e con la insulina lispro 15 unidades antes de las comidas. Si experimenta niveles bajos de az?car en la mariah, tr?telo con un caramelo masticable de fruta freddy Skittles o Jelly Beans (aproximadamente 8 piezas), 113 ml (1/2 taza) de jugo de fruta (no diet?yancy), 1 cucharada de miel o 4 tabletas de glucosa. Si campbell nivel de az?car en la mariah es inferior a 55, tome el doble de la dosis de moreno de los medicamentos mencionados. Vuelva a medir campbell nivel de az?car en la mariah en 15 minutos. Coding Level of Care Code Est Pt Level 4 (47580) Diagnoses Type II diabetes with mcc use of insulin E11.9; Z79.4 CPT Codes Details - CPT: 27941 - Glucose monitoring, continuous-physician I&R ([id number])
--- OUTSIDE RECORDS SUMMARY | 2025-01-10 15:17 | XMS_ITS | Encounter Summary ---
Author Organization [employer] Address [address] [facility] [address] [place] [address] Care Team Providers Care Computer Peripheral Equipment Operator Name Role Phone Brittnee Hanna MD Primary Care Provider [phone] Di Hyde PharmD Unavailable Martina Mancia OD Unavailable Allyson Armando Unavailable Reason for Visit * Reason Comments Med Refill Encounter Details Date Type Department Care Team (Late st Contact Info) Description 02/18/2023 Refill [facility] [address] [place], [place] [phone] Brittnee Hanna MD [address] [place], [place] [phone] Type 2 diabetes mellitus with other circulatory complication, with long-term current use of insulin ([facility]) Social History Tobacco Use Types [...] with long-term current use of insulin ([facility]) documented in this encounter Additional Health Concerns Assessment Noted Time PHQ-9 Depression Total Score: 21 023 9:47 AM EDT documented as of this encounter Care Teams Computer Peripheral Equipment Operator Relationship Specialty Start Date End Date Brittnee Hanna MD [address] [place] [address] PCP - General Family Medicine 08/17/18 Di Hyde, ShabbirD [address] [place] [address] Pharmacist Internal Medicine 01/06/23 08/31/24 Martina Mancia OD [address] [place] [id number] Optometry 07/26/24 Allyson Armando [address] [place] [address] [address] [place] [address] Cardiology 01/03/25 Donna Sutton Bingo AttendantBladder Blower 05/06/24 Bety Benson NP [facility] [place] Endocrinology 11/04/24 documented as of this encounter
[2025-01-10 15:19] VITALS: BP 124/64; PULSE 84; BMI 22.5
[2025-01-10 15:31] LABS: Glucose, Whole Blood 391 mg/dL (60-115)
== END 2025-01-10 15:45 | disposition home or self-care (01) ==
LOC: HO.ENCR 15:15
PROVIDERS: PCP Family Medicine; Visit Provider Physician Assistant Medical
DX: E11.9 Type 2 diabetes mellitus without complications (principal); Z79.4 Long term (current) use of insulin

== ENCOUNTER → 2025-01-10 15:14 | Outpatient (BNVA) | payer MEDICAID, SELFPAY | PROVIDERS: PCP Family Medicine; Visit Provider Physician Assistant Medical | DX: E11.9 Type 2 diabetes mellitus without complications (principal); Z79.4 Long term (current) use of insulin; Z79.85 Long-term (current) use of injectable non-insulin antidiabetic drugs | CPT/HCPCS: 82947; 83036; 99212 ==

== ENCOUNTER 2025-02-01 14:50 | Outpatient (AMB) | payer MEDICAID, SELFPAY ==
--- NOTE | 2025-02-01 15:25 | A.OFFVIS_ITS ---
Intake Intake Visit Reasons: 60 min Horse Farm Manager Required: Yes Horse Farm Manager Language: Strategic Consultant Name: Ector [id number] Information Interpreted: non-clinical & clinical Accompanied by: Self / Same As Patient Allergies shellfish derived (SHELLFISH DERIVED) Allergy (Severe, Verified 01/10/25 15:20) Swelling Penicillins Allergy (Mild, Verified 01/10/25 15:20) UNKNOWN - RXN CHILD naproxen (NAPROXEN) Allergy (Unknown, Verified 01/10/25 15:20) CAN'T TAKE PER HER DIRECTOR OF GOVERNMENT SALES seasonal allergies Allergy (Mild, Uncoded 01/10/25 15:20) Itchy Eyes PFSH Medical History (Updated 01/02/25 @ 17:07 by MARLYN Toth) Type II diabetes with senior care use of insulin Symptomatic anemia GI bleed Diabetes Anxiety Depression Asthma History of heart attack CAD (coronary artery disease) Hypercholesteremia HTN (hypertension) Surgical History Stented coronary artery Hx of colonoscopy (04/11/14) Family History Father Diabetes Hypercholesteremia HTN (hypertension) Mother HTN (hypertension) Diabetes Hypercholesteremia Brother HTN (hypertension) Diabetes Social History Household Members: None Housing: House Do you presently have visiting nurse or other home services: Yes ([employer]) Alcohol intake: current Alcohol intake frequency: does not drink Patient Tobacco Use Status: Former Tobacco user service: No Current occupational status: disabled Assessment & Plan Assessment & Plan (1) Type II diabetes with senior care use of insulin: Code(s): E11.9 - Type 2 diabetes mellitus without complications; 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 2= needs review? 3= comprehend keep point? 4= demonstrates understanding/ competent? NC= Not Covered Topics Learning Objective: Initial visit Initial or post srvc Initial or post srvc Initial or post srvc Initial or post srvc Initial or post srvc Post srvc Comments Pre Edu-assessment/plan Outcome or reassess O utcome or reassess Outcome or reassess Outcome or reassess Outcome or reassess Outcome or reassess Diabetes pathophysiology 1 2 Healthy eating 1 2 Being active 1 2 Taking medication 1 2 Monitoring glucose 1 2 Acute complication 1 2 Chronic complicated 1 Lifestyle and healthy coping 1 Diabetes distress in support 1 ?Diabetes pathophysiology: ?Defined diabetes med identify own type of diabetes; list 3 options for treating diabetes Healthy eating: ?Described effect of type, amount and ?timing of food on blood glucose; list 3 methods for planning meal Being active: ?State effect of exercise on blood glucose level Taking medication: ?State effect of diabetes medications on diabetes; name diabetes medications taking, action and side effects Monitoring glucose: ?Identify recommended blood glucose targets and personal target Acute complication: ?List symptoms and treatment of hyper and hypoglycemia, DKA, sick day guidelines and guidelines for severe weather or situations of crisis and diabetes supply manage Chronic complication: ?To find the relationship of blood glucose levels to long- term complications of diabetes in screening and preventative measures Lifestyle and healthy coping: ?Described lifestyle and healthy coping strategies to rule out diabetes self-management Diabetes to stress and support: ?Recognize Diabetes to stress and be able to identified support options Learning objectives: The patient was provided with verbal and written education on the following topics as outlined below. Assess patient education level/literacy/barriers, patient reports that she has had low blood sugars in the past 7 days. Reviewed patient's [employer] 3 reader on Thursday the there was an episode of hypoglycemia of 68 mg/dL, although patient also reported that she did a fingerstick at the time and it was 188 mg/dL, she still treated with orange juice. Patient declined to adjust Lantus 40 units daily Humalog 14 units before meals Trulicity 1.5 mg weekly Encourage patient to discuss at visit with endocrine PA on 02/07/2025 alternative medications for diabetes, patient's glucose levels remain a while above target Patient denies eating large portions of carbohydrates, drinking juice or soda I asked patient directly if she was ready to make changes to try and get glucose under better control. The patient met all learning objectives and was able to verbalize understanding and provide teach back of education topics discussed . The patient was provided with the opportunity to ask questions and all questions were answered. Topics covered in today?s session included: Medications (If applicable) * Name of medication? * Dosing/administration instructions? * Mechanism of action? * Potential side effects? * Potential adverse reaction and appropriate treatment? * Review onset, peak, duration Assess for concerns re: insurance coverage, cost, barriers to compliance Insulin/Injectables (If applicable) * Storage/care of insulin?? * Injection sites? * Site rotation? * Onset, peak, duration * Drawing up insulin? * Injecting insulin/other injectables? * Sharps disposal Continuous blood glucose monitoring (if applicable) Hypoglycemia and Hyperglycemia * Signs and symptoms? * Causes?? * Treatment? * Preventing hypoglycemia? * When to seek medical attention Target Goals: * Blood glucose targets and how you feel when your blood glucose is in and out of your target ranges. * Monitoring and knowing your A1C. * What can make blood glucose go up and down and preventing high and low blood glucose. * Review of blood sugar targets in expected goal range and outside of expected goal range. * Problem solving and preventing hyper/hypoglycemia. * Sick day management of diabetes. * Using blood sugar results in decision making process in managing diabetes. ?Patient was receptive to information provided and participated in the discussion. Asked?appropriate questions and demonstrated good understanding of the topics discussed.? ? Educational Materials: The patient was provided with the following written educational materials: Target Goal handout Smart Goal Assessment:?Patient will identify carbohydrates in current meal plan for next visit Pt met goal less than 25% New Smart Goal: Patient Response to instructions: Comprehension of Instructions: poor Readiness to make changes:? Pre contemplation How confident they feel about making changes:poor Portions of this note were created using voice recognition software, please excuse any words or phrases that may have been misinterpreted. Coding Level of Care Code Est Pt Level 1 (77130) Diagnoses Type II diabetes with senior care use of insulin E11.9; Z79.4
--- OUTSIDE RECORDS SUMMARY | 2025-02-01 17:03 | XMS_ITS | Encounter Summary ---
Author Organization [employer] Address [address] [facility] [address] [place] [address] Care Team Providers Care Wound Care Coordinator Name Role Phone Brittnee Hanna MD Primary Care Provider [phone] Di Hyde PharmD Unavailable Martina Mancia OD Unavailable Allyson Armando Unavailable Reason for Visit * Reason Comments Med Refill Encounter Details Date Type Department Care Team (Late st Contact Info) Description 02/18/2023 Refill [facility] [address] [place], [place] [phone] Brittnee Hanna MD [address] [place], [place] [phone] Type 2 diabetes mellitus with other circulatory complication, with long-term current use of insulin ([facility]) Social History Tobacco Use Types Packs/Day [...] complication, with long-term current use of insulin ([facility]) documented in this encounter Additional Health Concerns Assessment Noted Time PHQ-9 Depression Total Score: 21 023 9:47 AM EDT documented as of this encounter Care Teams Wound Care Coordinator Relationship Specialty Start Date End Date Brittnee Hanna MD [address] [place] [address] PCP - General Family Medicine 08/17/18 Di Hyde, ShabbirD [address] [place] [address] Pharmacist Internal Medicine 01/06/23 08/31/24 Martina Mancia OD [address] [place] [address] Optometry 07/26/24 Allyson Armando [address] [place] [address] [address] [place] [address] Cardiology 01/03/25 Donna Sutton Machine Rug CleanerWader Boot Top Assembler 05/06/24 Bety Benson NP [facility] [place] Endocrinology 11/04/24 documented as of this encounter
== END 2025-02-01 15:50 | disposition home or self-care (01) ==
LOC: HO.ENCR 14:50
PROVIDERS: PCP Family Medicine; Visit Provider Registered Nurse Diabetes Educator
DX: E11.9 Type 2 diabetes mellitus without complications (principal); Z79.4 Long term (current) use of insulin

== ENCOUNTER → 2025-02-01 14:50 | Outpatient (BNVA) | payer MEDICAID, SELFPAY | PROVIDERS: PCP Family Medicine; Visit Provider Registered Nurse Diabetes Educator | DX: E11.9 Type 2 diabetes mellitus without complications (principal); Z79.4 Long term (current) use of insulin | CPT/HCPCS: 99211 ==

== ENCOUNTER 2025-02-07 14:43 | Outpatient (AMB) | payer MEDICAID, SELFPAY ==
--- NOTE | 2025-02-07 14:45 | MHC.OFFVIS ---
Vital Signs 02/07/25 14:52 Height 5 ft 2 in Weight 119 lb 0.794 oz BMI 21.8 BP 90/62 Blood Pressure Location Lt brachial Position Sitting Pulse 72 Pulse Source Palpation Intake Visit Reasons: Type II diabetes Intake Note: Patient present today to follow up on Type 2 Diabetes Mellitus. Last Diabetic Eye exam: October 2024 Last Podiatry Visit: Does not see a Industrial Renderer Random Glucose: 189 mg/dl HgA1C: 10.8% 01/10/2025 Dyeing Machine Feeder Required: Yes Dyeing Machine Feeder Language: Grassland Conservationist Services: Dyeing Machine Feeder Present Dyeing Machine Feeder Name: Mihai [id number] Information Interpreted: non-clinical & clinical Accompanied by: Self / Same As Patient Allergies shellfish derived (SHELLFISH DERIVED) Allergy (Severe, Verified 02/07/25 14:53) Swelling Penicillins Allergy (Mild, Verified 02/07/25 14:53) UNKNOWN - RXN CHILD naproxen (NAPROXEN) Allergy (Unknown, Verified 02/07/25 14:53) CAN'T 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 seasonal allergies Allergy (Mild, Uncoded 02/07/25 14:53) Itchy Eyes Medication List - Last Reconciled 02/07/25 by GEMA Mackey albuterol sulfate 90 mcg/actuation (ProAir HFA) 2 puffs inhalation Q4-6H PRN amlodipine 5 mg PO QAM aripiprazole 2 mg PO BEDTIME aspirin 81 mg PO DAILY atorvastatin 80 mg PO QPM bismuth subsalicylate 2 tabs PO QID blood sugar diagnostic (FreeStyle Precision Freeman Strips) As directed blood-glucose meter (FreeStyle Salt Flat Lite kit) As directed blood-glucose sensor (FreeStyle Ric 3 Sensor device) apply new sensor every 14 days blood-glucose,cafe team member,cont (FreeStyle Ric 3 [place]) Use daily to monitor blood glucose levels continuously. dextrose (TRUEplus Glucose) 15 grams (32 mL) PO Q15M PRN doxepin 25 mg PO BEDTIME dulaglutide (Trulicity) 1.5 mg (0.5 mL) subcut QWEEK ferrous sulfate (FeroSul) 325 mg PO Q OTHER DAY flash glucose sensor (FreeStyle Ric 2 Sensor kit) As directed fluticasone propion-salmeterol 250-50 mcg/dose (Advair Diskus) 1 puff inhalation BID gabapentin 100 mg PO BID ibuprofen 600 mg PO TID PRN insulin degludec (Tresiba FlexTouch U-200 insulin) 44 units (0.22 mL) subcut BEDTIME insulin lispro 15 units subcut TIDWMEAL isosorbide mononitrate ER 30 mg PO DAILY lancets (TRUEplus Lancets) As directed lisinopril 20 mg PO DAILY loratadine 1 tab PO QAM metoprolol succinate ER 1 tab PO QAM olanzapine 7.5 mg PO BEDTIME pantoprazole 20 mg PO BID 2 weeks pen needle, diabetic (Pentips Pen Needle) As directed prazosin 1 mg PO BEDTIME sertraline 50 mg PO QAM tiotropium bromide (Spiriva with HandiHaler) 1 cap inhalation DAILY HPI Comments Details: This is a 59-year-old female with a past medical history of type 2 diabetes, depression, CKD stage 3, asthma-COPD, CAD (STEMI 04/15/2014 requiring PCI with JENISE to proximal LAD), decreased LVEF, gastritis, dizziness and falls and tobacco use presenting for diabetic management. Luxembourger video copy chief used. She was diagnosed with type 2 diabetes 17 years ago. Family history of Type I: none Family history of Type 2: parents History of DKA - admitted 03/17/2022 for DKA in the setting of acute cystitis. Reviewed Ric 3+ CGM active 95% Average glucose 304 G AL 10.6% Glucose variability 23.9% Very high 75% High 20% Target range 5% 0% hypoglycemia She has hyperglycemia throughout 24 hours Hemoglobin a1c 10.8% down from 12.7 % on 10/04/24. Current medication regimen: Lantus 44 units nightly, lispro 15 units before meals, Trulicity 1.5 mg weekly. Past medications: Patient denies Compliance issues: Pharmacy never filled the Trulicity 1.5 mg so she has been out of this for 2 months now. She is only taking 40 units of Lantus. Hypoglycemia symptoms: 1 interval episode with blood sugar 69. She treated with juice. Hyperglycemia symptoms: tired, dry mouth, polydipsia, polyuria Eye exam: October 2024 Microvascular complications: neuropathy, nephropathy, no known retinopathy Macrovascular complications: Coronary artery disease Her blood pressure is soft today, but she denies dizziness or weakness. Reports she did not drink a lot of fluids today. Previous blood pressure 124/64. Advised patient we will monitor this, and if her blood pressure remains low decrease her medication. ROS: Constitutional: Denies fevers, chills, night sweats Eyes: Denies vision changes, denies blurry vision Respiratory: No shortness of breath, cough or sputum production. Cardiovascular: No chest pain, chest pressure or chest discomfort. No palpitations or pedal edema. Gastrointestinal: Denies nausea, vomiting, diarrhea, abdominal pain, acid reflux. Denies constipation. Neurologic: No headache or dizziness. She endorses tingling pain in her toes. She is on gabapentin. Endocrine: See HPI Physical exam: Constitutional: Alert, in no distress. Eyes: Pupils are equal, round and reactive to light. Neck: Supple, Full range of motion. No lymphadenopathy. No palpable thyroid masses. Respiratory: Clear to auscultation. Cardiovascular: S1 S2 regular. No murmurs. No carotid bruits. Extremities: No edema [facility] Medical History (Updated 01/02/25 @ 17:07 by Allyson Armando NP-C) Type II diabetes with buttermaker continuous churn use of insulin Symptomatic anemia GI bleed Diabetes Anxiety Depression Asthma History of heart attack CAD (coronary artery disease) Hypercholesteremia HTN (hypertension) Surgical History Stented coronary artery Hx of colonoscopy (04/11/14) Family History Father Diabetes Hypercholesteremia HTN (hypertension) Mother HTN (hypertension) Diabetes Hypercholesteremia Brother HTN (hypertension) Diabetes Social History Household Members: None Housing: House Do you presently have visiting nurse or other home services: Yes ([employer]) Alcohol intake: current Alcohol intake frequency: does not drink Patient Tobacco Use Status: Former Tobacco user service: No Current occupational status: disabled Physical Exam Vital Signs: Last Vital Signs Pulse 72 02/07/25 14:52 BP 90/62 02/07/25 14:52 BMI result Body Mass Index 21.8 Office Procedures Glucose Monitoring Details Details: See HPI 72903 - Glucose monitoring, continuous-physician I&R Procedure code (CPT) selection complete Results Reviewed Results Reviewed: Laboratory Last Values Glucose (Clinic) 189 mg/dL (60-115) H 02/07/25 14:58 Laboratory Tests 01/07/22 06/18/24 09/19/24 13:22 12:51 10:00 Creatinine 0.94 1.23 Estimated GFR > 60 44 B-Natriuretic Peptide 128 H Triglycerides 206 H Cholesterol 141 LDL Cholesterol, Calc 65 HDL Cholesterol 35 L TSH 0.76 Urine Creatinine 161.00 Urine Microalbumin 17.0 Microalb/Creat Ratio 10.5 Laboratory Tests 10/06/24 13:46 C-Peptide 1.37 Islet Cell Ab Screen NEGATIVE JEREMIAS Antibody <5 Assessment & Plan Assessment & Plan (1) Type II diabetes with buttermaker continuous churn use of insulin: Code(s): E11.9 - Type 2 diabetes mellitus without complications; Z79.4 - senior care (current) use of insulin Category: Medical Plan In summary this is a 59-year-old diabetic female with poor albeit improving glycemic control on basal bolus insulin and Trulicity. Unfortunately the pharmacy did not dispense the prescription for Trulicity. I called the pharmacy, and they will have the prescription ready for her in 2 hours. She has been prone to some hypoglycemia although it is improved recently. She has not titrated the dose of Lantus due to concerns about this so we will switch her to Tresiba and increase to 44 units daily. Continue insulin lispro 15 units before meals. Restart Trulicity 1.5 mg weekly. We started the discussion about adding an SGLT2 once her GMI comes down a bit. Currently it is at a level where she could be at increased risk of UTI and yeast infections. If you experience low blood sugar, treat this by eating a chewable fruit candy like skittles or jelly beans (about 8 pieces), 4 ounces (1/2 cup) of fruit juice (not diet), 1 tablespoon of honey or 4 glucose tablets or a 15 g glucose gel packet. If your blood sugar is under 55, take double the amount of one of the above. Recheck your blood sugar in [address] if she does not have a reliable way to check her blood sugar or has symptoms of hypoglycemia. Discussed pathophysiology of Type II Diabetes Mellitus with the patient in detail.? I explained the buttermaker continuous churn risks and complications associated with uncontrolled diabetes including nephropathy, neuropathy, peripheral vascular disease, retinopathy, increased risk of heart disease and stroke.? Follow up in 4 weeks for type 2 diabetes. 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 Al retirar Tresiba, comience a fred 44 unidades diarias y suspenda Lantus. Contin?e con Lispro 15 unidades quince minutos antes de las comidas. Reinicie Trulicity 1.5 mg semanalmente. Coding Level of Care Code Est Pt Level 4 (95760) Diagnoses Type II diabetes with retirement use of insulin E11.9; Z79.4 CPT Codes Details - CPT: 73083 - Glucose monitoring, continuous-physician I&R ([id number])
[2025-02-07 14:52] VITALS: BP 90/62; PULSE 72; BMI 21.8
[2025-02-07 15:04] LABS: Glucose, Whole Blood 189 mg/dL (60-115)
--- OUTSIDE RECORDS SUMMARY | 2025-02-07 17:55 | XMS_ITS | Encounter Summary ---
Author Organization [employer] Address [address] [facility] 7t [place] [address] Care Team Providers Care Associate Spa Director Name Role Phone Brittnee Hanna MD Primary Care Provider [phone] Di Hyde PharmD Unavailable Martina Mancia OD Unavailable [phone] Allyson Armando Unavailable Reason for Visit * Reason Comments Med Refill Encounter Details Date Type Department Care Team (Late st Contact Info) Description 02/18/2023 Refill [facility] [address] [place], [place] [phone] Brittnee Hanna MD [address] [place], [place] [phone] Type 2 diabetes mellitus with other circulatory complication, with long-term current use of insulin ([facility]) Social History Tobacco Use Types [...] complication, with long-term current use of insulin ([facility]) documented in this encounter Additional Health Concerns Assessment Noted Time PHQ-9 Depression Total Score: 21 023 9:47 AM EDT documented as of this encounter Care Teams Associate Spa Director Relationship Specialty Start Date End Date Brittnee Hanna MD [address] [place] [address] PCP - General Family Medicine 08/17/18 Di Hyde, ShabbirD [address] [place] [address] Pharmacist Internal Medicine 01/06/23 08/31/24 Martina Mancia OD [address] [place] [phone] Optometry 07/26/24 Allyson Armando [address] [place] [address] [address] [place] [address] Cardiology 01/03/25 Donna Sutton Early Head Start DirectorHeel Layer 05/06/24 Bety Benson NP [facility] Endocrinology Endocrinology 11/04/24 documented as of this encounter
== END 2025-02-07 15:28 | disposition home or self-care (01) ==
LOC: HO.ENCR 14:44
PROVIDERS: PCP Family Medicine; Visit Provider Physician Assistant Medical
DX: E11.9 Type 2 diabetes mellitus without complications (principal); Z79.4 Long term (current) use of insulin

== ENCOUNTER → 2025-02-07 14:43 | Outpatient (BNVA) | payer MEDICAID, SELFPAY | PROVIDERS: PCP Family Medicine; Visit Provider Physician Assistant Medical | DX: E11.9 Type 2 diabetes mellitus without complications (principal); Z79.4 Long term (current) use of insulin | CPT/HCPCS: 82947; 99212 ==

== ENCOUNTER → 2025-02-08 13:35 | Outpatient (REF) | payer MEDICAID, SELFPAY ==
--- NOTE | 2025-02-08 13:38 | CA_ITS ---
Transthoracic Echocardiogram Patient (Last, First, Middle): Cynthia Perry, Gender: Female Date of : 1965 Age: 59 Procedure Date: 02/08/2025 Procedure Type: Transthoracic Echocardiogram Location: OP Height: 157.48 cm Weight: 53.98 kg BSA: 1.53 m2 Heart Rate: bpm BP: 105 / 75 mmHg Weeder Thinner: VH Referring MD: Allyson Armando SENIOR CLINICIANBrandon Symptoms: I25.10 - Atherosclerotic heart disease of [place] coronary artery without... Study Quality: Good ECG Rhythm: Sinus Conclusions: - The left ventricular systolic function is normal. The calculated ejection fraction is 61% by biplane method. - No obvious valvular pathology seen on this study. Findings Left Ventricle Normal left ventricular cavity size. The left ventricular systolic function is normal. The calculated ejection fraction is 61% by biplane method. There is no evidence of regional wall motion abnormalities. Diastolic function is normal for age. There is mild septal asymmetric hypertrophy. Right Ventricle Normal right ventricular cavity size and systolic function. Atria Both atria are normal in size. Aortic Valve There is a normal trileaflet aortic valve. There is no aortic valve stenosis. There is no aortic valve regurgitation. Mitral Valve The mitral valve appears normal. There is trace mitral valve regurgitation. There is no mitral valve stenosis. Pulmonic Valve The pulmonic valve is likely normal. Tricuspid Valve There is trace tricuspid valve regurgitation. There is no evidence of pulmonary hypertension. Great Vessels The asc aorta is normal in size. Venous The inferior vena cava is normal in size and collapses greater than 50% with inspiration. Pericardium/Pleural There is no evidence of pericardial effusion. Prior Study Comparison Changes noted compared to prior study dated: 01/08/2022. No clear evidence of apical hypokinesis, but apical visualization is also suboptimal. Recommendations, Care & Conclusions No obvious valvular pathology seen on this study. Measurements 2D Linear Measurements IVSd: 1.11 0.6-0.9/0.6-1.0 cm LVIDd: 3.48 3.9-5.3/4.2-5.9 cm LVIDd Index: 2.27 2.4-3.2/2.2-3.1 cm/m2 LVIDs: 2.06 2.0-3.6 cm LVPWd: 1.00 0.7-1.1 cm Ao Root: 3.10 2.1-3.5 cm LA Diam: 2.70 2.7-3.8/3.0-4.0 cm LAIDs Index: 1.76 1.5-2.3 cm/m2 LV Mass: 137.54 67-162/88-224 g LV Mass Index: 89.90 43-95/49-115 g/m2 LVOT Diam: 2.00 3.0+(-)1.3 cm 2D Systolic Function EF 4C: 56.30 >55% EF 2C: 65.70 >55% EF BiP: 60.70 >55% Mitral Valve MV Pk E: 0.56 MV PK A: 0.75 MV Decel Time: 170.00 E/A: 0.70 E'Lateral: 4.57 E'Medial: 4.57 E/E' Med: 12.20 E/E' Lat: 12.20 PHT: 50.00 MVA PHT: 4.40 Decel [place]: 3.27 Aortic Valve AoV Pk Audi: 0.95 AoV Mn Audi: 0.66 AoV VTI: 0.18 AoV Pk Grad: 4.00 Aov Mn Grad: 2.00 [place] Cont.VTI: 3.14 LVOT LVOT Pk Audi: 0.92 LVOT Mn Audi: 0.59 LVOT VTI: 0.18 LVOT Pk Grad: 3.00 LVOT Mn Grad: 2.00 LVOT Diam: 2.00 LVOT Area: 3.14 Diastolic Function MV Pk E: 0.56 MV Pk A: 0.75 E/A: 0.70 E'Medial: 4.57 E/E' Med: 12.20 E' Laterial: 4.57 E/E' Lat: 12.20 Tricuspid Valve TR Pk Audi: 2.00 TR Pk Grad: 16.00 RA Press: 3.00 RVSP: 18.00 Great Vessels Aorta Ao Root-2D: 3.10 2.0-3.7 cm Ao Asc: 3.00 2.1-3.4 cm Pulmonary Valve PV Pk Audi: 0.68 Peak PV Grad: 2.00 Updated in Other Vendor System with Status of Final Drew Dunn MD electronically signed on 02/09/2025 12:37:27 PM with status of Final
--- OUTSIDE RECORDS SUMMARY | 2025-02-08 16:01 | XMS_ITS | Encounter Summary ---
Author Organization [employer] Address [address] [facility] 7[address] [place] [address] Care Team Providers Care Binder Layer Name Role Phone Brittnee Hanna MD Primary Care Provider [phone] Di Hyde PharmD Unavailable Martina Mancia OD Unavailable [phone] Allyson Armando Unavailable Reason for Visit * Reason Comments Med Refill Encounter Details Date Type Department Care Team (Late st Contact Info) Description 02/18/2023 Refill [facility] MEDICINE [address] [place], [place] [phone] Brittnee Hanna MD [address] [place], [place] [phone] Type 2 diabetes mellitus with other circulatory complication, with long-term current use of insulin ([facility]) Social History Tobacco Use Types Packs/Day Years [...] complication, with long-term current use of insulin ([facility]) documented in this encounter Additional Health Concerns Assessment Noted Time PHQ-9 Depression Total Score: 21 023 9:47 AM EDT documented as of this encounter Care Teams Binder Layer Relationship Specialty Start Date End Date Brittnee Hanna MD [address] [place] [address] PCP - General Family Medicine 08/17/18 Di Hyde, ShabbirD [address] [place] [address] Pharmacist Internal Medicine 01/06/23 08/31/24 Martina Mancia OD [address] [place] [address] Optometry 07/26/24 Allyson Armando [address] [place] [address] [address] [place] [address] Cardiology 01/03/25 Donna Sutton Education Courses Sales RepresentativeCoil Finisher 05/06/24 Bety Benson NP [facility] Endocrinology Endocrinology 11/04/24 documented as of this encounter
== END ==
LOC: HO.CARD 13:35
PROVIDERS: PCP Family Medicine; Visit Provider Nurse Practitioner Family
DX: R07.89 Other chest pain (principal); I25.10 Atherosclerotic heart disease of native coronary artery without angina pectoris; Z95.5 Presence of coronary angioplasty implant and graft
CPT/HCPCS: 93306

== ENCOUNTER → 2025-02-08 13:38 | Outpatient (BNV) | payer MEDICAID, SELFPAY | PROVIDERS: PCP Family Medicine; Visit Provider Internal Medicine | DX: I42.2 Other hypertrophic cardiomyopathy (principal); I25.10 Atherosclerotic heart disease of native coronary artery without angina pectoris | CPT/HCPCS: 93306 ==

== ENCOUNTER 2025-02-09 15:33 | Outpatient (AMB) | payer MEDICAID, SELFPAY ==
--- NOTE | 2025-02-09 15:41 | A.OFFVIS_ITS ---
Vital Signs 02/09/25 15:53 Height 5 ft 2 in Weight 119 lb BMI 21.8 BP 124/76 Blood Pressure Location Lt brachial Position Sitting Pulse 82 Pulse Source Pulse Oximeter Pulse Oximetry (%) 99 Oxygen Delivery Method Room Air Intake Visit Reasons: weight loss Intake Note: Est pt for mgmt of CIC. FRANK 2021. Eval for weight loss concerns. CC: C.O. abnormal weight loss without any associated / additional sx. Pt reports 128-119 lbs within the last month. Pt denies any changes in lifestyle or appetite to this point. 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 She continues on the Trulance and is moving her bowels well and the protonix 40mg bid. She is satisfied with this. Return office visit in 6 months. (2) Colon cancer screening: Comment: 2020 polyp=hyperplastic but insuff prep repeat 5 years Code(s): Z12.11 - Encounter for screening for malignant neoplasm of colon TODAY'S VISIT [facility] #[id number] Venkatesh Patient has been lost to follow-up since 07/21/2022. In the past she was on pantoprazole twice a day and Trulance. She will be due for colonoscopy in 2025. Apparently she has been referred to our office for weight loss. However review of her records show that her hemoglobin A1c is nearly 11% so it is most likely that her ongoing weight loss is due to her uncontrolled diabetes on her body's inability to utilize any p.o. intake for energy as she is passing it out via glucose of the urine. Her CIC is currently contrtolled and she has not needed any medication. She stopped her pantoprazole and for about a year did not have any HB but now it has returned. Since she has a hx of erosive gastritis we will re start her pantoprazole 20mg bid and consider repeat EGD next year with her colonoscopy since she has no abd pain. ROV 6 mos. PFSH Medical History COVID Type II diabetes with skilled nursing use of insulin Symptomatic anemia GI bleed Diabetes Anxiety Depression Asthma History of heart attack CAD (coronary artery disease) Hypercholesteremia HTN (hypertension) Surgical History Stented coronary artery Hx of colonoscopy (04/11/14) Family History Father Diabetes Hypercholesteremia HTN (hypertension) Mother HTN (hypertension) Diabetes Hypercholesteremia Brother HTN (hypertension) Diabetes Social History Household Members: None Housing: House Do you presently have visiting nurse or other home services: Yes (GOLF STUD RIVETER) Alcohol intake: current Alcohol intake frequency: does not drink Patient Tobacco Use Status: Former Tobacco user service: No Current occupational status: disabled Review of Systems Const Denies fatigue, Denies fever(s), Denies night sweats, Denies poor appetite and Reports weight loss ENT Reports Normal hearing present, Denies dental pain, Denies dysphagia, Denies hearing loss, Denies mouth pain, Denies odynophagia, Denies throat swelling, Denies tongue swelling and Reports other (Dentition adequate) Card Reports no additional complaints Resp Reports no additional complaints GI Details: Denies abdominal pain, Denies melena, Denies bloating, Denies hematochezia, Denies constipation, Denies GI cramping, Denies dysphagia, Denies excessive flatus, Denies early satiety, Reports heartburn, Denies diarrhea, Denies nausea, Denies odynophagia, Denies vomiting and Denies hematemesis Skin/Breast Denies pruritus, Denies lesions, Denies rash and Denies jaundice Neuro Reports Normal hearing present and Denies Abnormal speech present Endo Denies fatigue Aller/Immun Denies throat swelling and Denies tongue swelling Physical Exam Vital Signs: Last Vital Signs Pulse 82 02/09/25 15:53 BP 124/76 02/09/25 15:53 Pulse Ox 99 02/09/25 15:53 Oxygen Delivery Method Room Air 02/09/25 15:53 BMI result Body Mass Index 21.8 Const General: cooperative, no acute distress, well developed and well groomed Nutritional Appearance: average body habitus and well nourished Orientation/consciousness: oriented to person, oriented to place and oriented to time Limitations: language barrier HEENT Head: Yes normocephalic and Yes atraumatic Eyes General: appearance normal, both eyes and all related structures Pupils: Equal, round and reactive pupils present Neck Neck: Yes normal visual inspection and Yes no lymphadenopathy Thyroid: Thyroid normal Resp Effort & Inspection: normal respiratory effort and able to speak in complete sentences Auscultation: clear to auscultation bilaterally Cardio Rate: regular rate Rhythm: regular rhythm Heart sounds: Normal, physiologic split S2 sound present Peripheral pulses: radial pulses present and posterior tibial pulses present GI Inspection: No distended and No Abdominal panniculus present Palpation (GI): Soft to palpation, nontender, no guarding, not rigid and No hepatosplenomegaly present Percussion: Yes normal to percussion Auscultation: normal bowel sounds Rectal Exam - Female: deferred Skin General skin exam: no rashes or lesions noted, turgor normal, skin not dry, no jaundice, No spider nevi and no striae Rashes: no rashes Nails: normal Neuro General: oriented to person, oriented to place and oriented to time Cranial nerves: Yes Equal, round and reactive pupils present and Yes Normal hearing present Speech: No Abnormal speech present Extrem General: Yes normal to inspection, No clubbing, No cyanosis and No edema Psych Appearance: grossly normal and well kempt Mental Status: mental status grossly normal Speech and movement: Normal speech and movement present Affect: normal affect Attitude: cooperative Thought process: not confabulating and Impoverished thought process present Thought content: Normal thought content present Insight: Limited insight present (Psych) Judgement: Limited judgement present (Psych) Assessment & Plan Assessment & Plan (1) Erosive gastritis: Comment: Antral ulcer in 2021 EGD performed for anemia Code(s): K29.60 - Other gastritis without bleeding Category: Medical (2) Chronic idiopathic constipation: Code(s): K59.04 - Chronic idiopathic constipation Category: Medical (3) Colon cancer screening: Comment: 2020 polyp=hyperplastic but insuff prep repeat 5 years Code(s): Z12.11 - Encounter for screening for malignant neoplasm of colon Category: Medical Plan [facility] #[id number] Venkatesh Patient has been lost to follow-up since 07/21/2022. In the past she was on pantoprazole twice a day and Trulance. She will be due for colonoscopy in 2025. Apparently she has been referred to our office for weight loss. However review of her records show that her hemoglobin A1c is nearly 11% so it is most likely that her ongoing weight loss is due to her uncontrolled diabetes on her body's i nability to utilize any p.o. intake for energy as she is passing it out via glucose of the urine. Her CIC is currently contrtolled and she has not needed any medication. She stopped her pantoprazole and for about a year did not have any HB but now it has returned. Since she has a hx of erosive gastritis we will re start her pantoprazole 20mg bid and consider repeat EGD next year with her colonoscopy since she has no abd pain. ROV 6 mos. Medications: New pantoprazole (Protonix) 20 mg PO BID 60 tabs 6RF K29.60 - Other gastritis without bleeding Coding Level of Care Code Est Pt Level 3 (92223) Diagnoses Erosive gastritis K29.60 Chronic idiopathic constipation K59.04 Colon cancer screening Z1211
[2025-02-09 15:53] VITALS: BP 124/76; PULSE 82; O2SAT 99; BMI 21.8
--- OUTSIDE RECORDS SUMMARY | 2025-02-09 19:13 | XMS_ITS | Encounter Summary ---
Author Organization [employer] Address [address] [facility] 7t [place] [address] Care Team Providers Care Psychiatric Tech Name Role Phone Brittnee Hanna MD Primary Care Provider [phone] Di Hyde PharmD Unavailable Martina Mancia OD Unavailable Allyson Armando Unavailable Reason for Visit * Reason Comments Med Refill Encounter Details Date Type Department Care Team (Late st Contact Info) Description 02/18/2023 Refill [facility] MEDICINE [address] [place], [place] [phone] Brittnee Hanna MD [address] [place], [place] [phone] Type 2 diabetes mellitus with other circulatory complication, with long-term current use of insulin ([facility]) Social History Tobacco Use [...] of insulin ([facility]) documented in this encounter Additional Health Concerns Assessment Noted Time PHQ-9 Depression Total Score: 21 023 9:47 AM EDT documented as of this encounter Care Teams Psychiatric Tech Relationship Specialty Start Date End Date Brittnee Hanna MD [address] [place] [address] PCP - General Family Medicine 08/17/18 Di Hyde, ShabbirD [address] [place] [address] Pharmacist Internal Medicine 01/06/23 08/31/24 Martina Mancia OD [address] [place] [address] Optometry 07/26/24 Allyson Armando [address] [place] [address] [address] [place] [address] Cardiology 01/03/25 Donna Sutton ChemotherapistHearing Aid Specialist 05/06/24 Bety Benson NP [facility] Endocrinology Endocrinology 11/04/24 documented as of this encounter
== END 2025-02-09 16:16 | disposition home or self-care (01) ==
LOC: HO.HGI 15:34
PROVIDERS: PCP Family Medicine; Visit Provider Nurse Practitioner
DX: K29.60 Other gastritis without bleeding (principal); K59.04 Chronic idiopathic constipation; Z12.11 Encounter for screening for malignant neoplasm of colon
CPT/HCPCS: 99213

== ENCOUNTER → 2025-02-09 15:33 | Outpatient (BNVA) | payer MEDICAID, SELFPAY | PROVIDERS: PCP Family Medicine; Visit Provider Nurse Practitioner | DX: Z12.11 Encounter for screening for malignant neoplasm of colon (principal); K59.04 Chronic idiopathic constipation; K29.60 Other gastritis without bleeding | CPT/HCPCS: 99212 ==

== ENCOUNTER 2025-03-03 14:21 | Outpatient (REF) | payer MEDICAID, SELFPAY ==
--- OUTSIDE RECORDS SUMMARY | 2025-03-03 14:23 | XMS_ITS | Encounter Summary ---
Author Organization [employer] Address [address] [facility] 7t [place] [address] Care Team Providers Care Cinder Worker Name Role Phone Brittnee Hanna MD Primary Care Provider [phone] Di Hyde PharmD Unavailable Martina Mancia OD Unavailable [phone] Allyson Armando Unavailable Reason for Visit * Reason Comments Med Refill Encounter Details Date Type Department Care Team (Late st Contact Info) Description 02/18/[address] [facility] MEDICINE [address] [place], [place] [phone] Brittnee Hanna MD [address] [place], [place] [phone] Type 2 diabetes mellitus with other circulatory complication, with long-term current use of insulin ([facility]) Social History Tobacco Use Types Packs/Day Years [...] Author Hemoglobin A1c < 7 Result Component 10.8( 12:00 AM EDT) No Di Hyde, Bo documented as of this encounter Visit Diagnoses Diagnosis Type 2 diabetes mellitus with other circulatory complication, with long-term current use of insulin ([facility]) documented in this encounter Additional Health Concerns Assessment Noted Time PHQ-9 Depression Total Score: 21 023 9:47 AM EDT documented as of this encounter Care Teams Cinder Worker Relationship Specialty Start Date End Date Brittnee Hanna MD [address] [place] [address] PCP - General Family Medicine 08/17/18 Di Hyde, ShabbirD [address] [place] [address] Pharmacist Internal Medicine 01/06/23 08/31/24 Martina Mancia OD [address] [place] [address] Optometry 07/26/24 Allyson Armando [address] [place] [address] [address] [place] [address] Cardiology 01/03/25 Donna Sutton [employer] HospitalistFuse Cutter 05/06/24 Bety Benson NP [facility] Endocrinology Endocrinology 11/04/24 documented as of this encounter
[2025-03-03 15:46] LABS: Alanine Aminotransferase 27 U/L (0-31); Aspartate Amino Transferase 24 U/L (5-31); Cholesterol 163 mg/dL (<200); Estimated Glomerular Filt Rate 60; HDL Cholesterol 41 mg/dL (>40); Triglycerides 172 mg/dL (<150)
== END 2025-03-03 14:22 | disposition home or self-care (01) ==
LOC: HO.LAB 14:21
PROVIDERS: PCP Physician Assistant Medical; Visit Provider Physician Assistant Medical
DX: E11.9 Type 2 diabetes mellitus without complications (principal); Z79.4 Long term (current) use of insulin; E78.5 Hyperlipidemia, unspecified
CPT/HCPCS: 36415; 80061; 82565; 84450; 84460

== ENCOUNTER 2025-03-14 11:31 | Outpatient (AMB) | payer MEDICAID, SELFPAY ==
[2025-03-14 11:33] VITALS: BP 140/82; PULSE 91; O2SAT 93; BMI 21.4
--- NOTE | 2025-03-14 11:33 | A.OFFVIS_ITS ---
Vital Signs 03/14/25 11:33 Height 5 ft 2 in Weight 116 lb 13.52 oz BMI 21.4 BP 140/82 H Blood Pressure Location Rt brachial Position Sitting Pulse 91 Pulse Source Pulse Oximeter Pulse Oximetry (%) 93 Oxygen Delivery Method Room Air Intake Visit Reasons: Type II diabetes Intake Note: Patient present today to follow up on Type 2 Diabetes Mellitus. Last Diabetic Eye exam: October 2024 Last Podiatry Visit: Does not see a Data Systems Manager Random Glucose: 253 mg/dL Most Recent HgA1C: 10.8% 01/10/2025 Overhauler Bus Truck Required: Yes Overhauler Bus Truck Language: Gift Shop Manager Services: Overhauler Bus Truck Present ([employer]) Overhauler Bus Truck Name: Cipriano #[id number] Information Interpreted: non-clinical & clinical Accompanied by: Self / Same As Patient Allergies shellfish derived (SHELLFISH DERIVED) Allergy (Severe, Verified 03/14/25 11:34) Swelling Penicillins Allergy (Mild, Verified 03/14/25 11:34) UNKNOWN - RXN CHILD naproxen (NAPROXEN) Allergy (Unknown, Verified 03/14/25 11:34) CAN'T TAKE PER HER IMAGE EDITOR seasonal allergies Allergy (Mild, Uncoded 03/14/25 11:34) Itchy Eyes Medication List - Last Reconciled 03/14/25 by GEMA Mackey albuterol sulfate 90 mcg/actuation (ProAir HFA) 2 puffs inhalation Q4-6H PRN amlodipine 5 mg PO QAM aripiprazole 2 mg PO BEDTIME aspirin 81 mg PO DAILY atorvastatin 80 mg PO QPM blood sugar diagnostic (FreeStyle Precision [place] Strips) As directed blood-glucose meter (FreeStyle [place] Lite kit) As directed blood-glucose sensor (FreeStyle Ric 3 Sensor device) apply new sensor every 14 days blood-glucose,supervisor corduroy cutting,cont (FreeStyle Ric 3 [place]) Use daily to monitor blood glucose levels continuously. doxepin 25 mg PO BEDTIME dulaglutide (Trulicity) 1.5 mg (0.5 mL) subcut QWEEK empagliflozin (Jardiance) 10 mg PO QAM ferrous sulfate (FeroSul) 325 mg PO Q OTHER DAY flash glucose sensor (FreeStyle Ric 2 Sensor kit) As directed fluticasone propion-salmeterol 250-50 mcg/dose (Advair Diskus) 1 puff inhalation BID gabapentin 100 mg PO BID glucose (Dex4 Glucose Quick Dissolve) 16 grams (4 x 4 gram) PO Q15M PRN ibuprofen 600 mg PO TID PRN insulin degludec (Tresiba FlexTouch U-200 insulin) 40 units subcut BEDTIME insulin lispro 15 units subcut TIDWMEAL isosorbide mononitrate ER 30 mg PO DAILY lancets (TRUEplus Lancets) As directed lisinopril 20 mg PO DAILY loratadine 1 tab PO QAM metoprolol succinate ER 1 tab PO QAM olanzapine 7.5 mg PO BEDTIME pantoprazole (Protonix) 20 mg PO BID pen needle, diabetic (Pentips Pen Needle) As directed prazosin 1 mg PO BEDTIME sertraline 50 mg PO QAM tiotropium bromide (Spiriva with HandiHaler) 1 cap inhalation DAILY HPI Comments Details: This is a 59-year-old female with a past medical history of type 2 diabetes, depression, CKD stage 3, asthma-COPD, CAD (STEMI 04/15/2014 requiring PCI with JENISE to proximal LAD), decreased LVEF, gastritis, dizziness and falls and tobacco use presenting for diabetic management. Vietnamese video public relations representative used. She was diagnosed with type 2 diabetes 17 years ago. Family history of Type I: none Family history of Type 2: parents History of DKA - admitted 03/17/2022 for DKA in the setting of acute cystitis. Reviewed Ric 3+ download for the past 2 weeks Average glucose 258 G [place] 9.5% Very high 52% High 29% Target range 19% 0% hypoglycemia She has a pattern of postprandial hyperglycemia. She also experiences hyperglycemia overnight. Hemoglobin a1c 10.8% down from 12.7 % on 10/04/24. Current medication regimen: Tresiba 40 units nightly, lispro 14 units before meals, Trulicity 1.5 mg weekly. She just started the new package. Denies side effects. Past medications: Patient denies prior medications. Hypoglycemia symptoms: No interval episodes. Hyperglycemia symptoms: tired, dry mouth, polydipsia, polyuria Eye exam: October 2024 Microvascular complications: neuropathy, nephropathy, no known retinopathy Macrovascular complications: Coronary artery disease ROS: Constitutional: Denies fevers, chills, night sweats Eyes: Denies vision changes, denies blurry vision Respiratory: No shortness of breath, cough or sputum production. Cardiovascular: No chest pain, chest pressure or chest discomfort. No palpitations or pedal edema. Gastrointestinal: Denies nausea, vomiting, diarrhea, abdominal pain, acid reflux. Denies constipation. Neurologic: No headache or dizziness. She endorses tingling pain in her toes. She is on gabapentin. Endocrine: See HPI Physical exam: Constitutional: Alert, in no distress. Eyes: Pupils are equal, round and reactive to light. Neck: Supple, Full range of motion. No lymphadenopathy. No palpable thyroid masses. Respiratory: Clear to auscultation. Cardiovascular: S1 S2 regular. No murmurs. No carotid bruits. 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 insulin Symptomatic anemia GI bleed Diabetes Anxiety Depression Asthma History of heart attack CAD (coronary artery disease) Hypercholesteremia HTN (hypertension) Surgical History Stented coronary artery Hx of colonoscopy (04/11/14) Family History Father Diabetes Hypercholesteremia HTN (hypertension) Mother HTN (hypertension) Diabetes Hypercholesteremia Brother HTN (hypertension) Diabetes Social History Household Members: None Housing: House Do you presently have visiting nurse or other home services: Yes (DENTISTRY PROFESSOR) Alcohol intake: current Alcohol intake frequency: does not drink Patient Tobacco Use Status: Former Tobacco user service: No Current occupational status: disabled Physical Exam Vital Signs: Last Vital Signs Pulse 91 03/14/25 11:33 BP 140/82 H 03/14/25 11:33 Pulse Ox 93 03/14/25 11:33 Oxygen Delivery Method Room Air 03/14/25 11:33 BMI result Body Mass Index 21.4 Office Procedures Glucose Monitoring Details Details: See [facility] [address] - Glucose monitoring, continuous-physician I&R Procedure code (CPT) selection complete Results Reviewed Results Reviewed: Laboratory Last Values Glucose (Clinic) 254 mg/dL (60-115) H 03/14/25 11:38 Laboratory Tests 01/07/22 06/18/24 09/19/24 13:22 12:51 10:00 Creatinine 0.94 1.23 Estimated GFR > 60 44 B-Natriuretic Peptide 128 H Triglycerides 206 H Cholesterol 141 LDL Cholesterol, Calc 65 HDL Cholesterol 35 L TSH 0.76 Urine Creatinine 161.00 Urine Microalbumin 17.0 Microalb/Creat Ratio 10.5 Laboratory Tests 10/06/24 13:46 C-Peptide 1.37 Islet Cell Ab Screen NEGATIVE JEREMIAS Antibody <5 Laboratory Tests 03/03/25 14:30 Creatinine 0.95 Estimated GFR 60 AST 24 ALT 27 Triglycerides 172 H Cholesterol 163 LDL Cholesterol, Calc 88 HDL Cholesterol 41 Assessment & Plan Assessment & Plan (1) Type II diabetes with nursing home use of insulin: Code(s): E11.9 - Type 2 diabetes mellitus without complications; Z79.4 - 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 Continue Tresiba 40 units daily. Continue insulin fibsbi62 units before meals. Continue Trulicity 1.5 mg weekly. Plan to titrate to 3 mg weekly when she is due for the next refill. We discussed addition of metformin or Jardiance. Reviewed potential side effects and benefits of each medicine. She will start Jardiance 10 mg every morning. If she develops signs of a UTI or yeast infection she will contact the office. We discussed risk of genitourinary infections including pyelonephritis, and we reviewed risk of SHANDA. She will return to the lab 10 days after starting the medicine to check her kidney function. If you experience low blood sugar, treat this by eating a chewable fruit candy like skittles or jelly beans (about 8 pieces), 4 ounces (1/2 cup) of fruit juice (not diet), 1 tablespoon of honey or 4 glucose tablets or a 15 g glucose gel packet. If your blood sugar is under 55, take double the amount of one of the above. Recheck your blood sugar in [address] if she does not have a reliable way to check her blood sugar or has symptoms of hypoglycemia. Discussed pathophysiology of Type II Diabetes Mellitus with the patient in detail.? I explained the nursing home risks and complications associated with uncontrolled diabetes including nephropathy, neuropathy, peripheral vascular disease, retinopathy, increased risk of heart disease and stroke.? Follow up in 4 weeks for type 2 diabetes. Orders: Orders Creatinine Today E11.9 - Type 2 diabetes mellitus without complications AMB Glucose Monitoring Today E11.9 - Type 2 diabetes mellitus without complications Medications: New empagliflozin (Jardiance) 10 mg PO QAM 30 tabs 1RF glucose (Dex4 Glucose Quick Dissolve) until symptoms of low blood sugar are controlled 16 grams (4 x 4 gram) PO Q15M PRN 30 tabs 3RF hypoglycemia Changed From insulin degludec (Tresiba FlexTouch U-200 insulin) Replaces Lantus 44 units (0.22 mL) subcut BEDTIME 9 mL 5RF To insulin degludec (Tresiba FlexTouch U-200 insulin) Replaces Lantus 40 units subcut BEDTIME Discontinued dextrose (TRUEplus Glucose) until symptoms of low blood sugar are controlled Discontinued Reason: Doctor's Order 15 grams (32 mL) PO Q15M PRN 128 mL 3RF hypoglycemia Patient Instructions: Tresiba 40 units nightly, lispro 14 units before meals, Trulicity 1.5 mg weekly. Start Jardiance 10 mg every morning. Please go to to the lab 10 days after starting this medicine. Tresiba 40 unidades por la noche, lispro 14 unidades antes de las comidas, Trulicity 1,5 mg semanalmente. Inicie Jardiance 10 mg todas las ma?anas. Acuda al laboratorio 10 d?as despu?s de comenzar andres medicamento. Coding Level of Care Code Est Pt Level 4 (17285) Diagnoses Type II diabetes with nursing home use of insulin E11.9; Z79.4 CPT Codes Details - CPT: 99596 - Glucose monitoring, continuous-physician I&R ([id number])
[2025-03-14 11:42] LABS: Glucose, Whole Blood 254 mg/dL (60-115)
--- OUTSIDE RECORDS SUMMARY | 2025-03-14 12:44 | XMS_ITS | Encounter Summary ---
Author Organization [employer] Address [address] [place] [address] Care Team Providers Care Nitrogen Operator Name Role Phone Brittnee Hanna MD Primary Care Provider [phone] Martina Mancia OD Unavailable [phone] Allyson Armando Unavailable Encounter Details Date Type Department Care Team ([facility] st Contact Info) Description 03/13/2025 Telephone [facility] [address] [place], [place] [id number] Brittnee Hanna MD [address] [place] [address] Social History Tobacco Use Types Packs/Day Years [...] Pressure 112/58(2024 3:02 PM EST) No Piers-Gambl Daily alfarosa, PharmD Hemoglobin A1c < 7 Result Component 10.8(01/11/20 12:00 AM EDT) No Bhupendras-Gambl eDailysa, PharmD documented as of this encounter Visit Diagnoses Not on filedocumented in this encounter Additional Health Concerns Assessment Noted Time PHQ-9 Depression Total Score: 15 024 10:35 AM EDT documented as of this encounter Care Teams Nitrogen Operator Relationship Specialty Start Date End Date Brittnee Hanna MD [address] [place] [address] PCP - General Family Medicine 08/17/18 Martina Mancia OD [address] [place] [id number] Optometry 07/26/24 Allyson Armando [address] [facility] 3rd [place] [address] Cardiology 01/03/25 Donna Sutton Gis AdministratorPost Partum Nurse 05/06/24 Bety Benson NP [facility] Endocrinology Endocrinology 11/04/24 documented as of this encounter
== END 2025-03-14 12:29 | disposition home or self-care (01) ==
LOC: HO.ENCR 11:32
PROVIDERS: PCP Physician Assistant Medical; Visit Provider Physician Assistant Medical
DX: E11.9 Type 2 diabetes mellitus without complications (principal); Z79.4 Long term (current) use of insulin

== ENCOUNTER → 2025-03-14 11:31 | Outpatient (BNVA) | payer MEDICAID, SELFPAY | PROVIDERS: PCP Physician Assistant Medical; Visit Provider Physician Assistant Medical | DX: E11.9 Type 2 diabetes mellitus without complications (principal); Z79.4 Long term (current) use of insulin | CPT/HCPCS: 82947; 99212 ==

== ENCOUNTER 2025-03-23 14:22 | Outpatient (AMB) | payer MEDICAID, SELFPAY ==
--- OUTSIDE RECORDS SUMMARY | 2025-03-23 14:25 | XMS_ITS | Encounter Summary ---
Author Organization [employer] Address [address] [place] [address] Care Team Providers Care Fact Checker Name Role Phone Brittnee Hanna MD Primary Care Provider [phone] Martina Mancia OD Unavailable [phone] Allyson Armando Unavailable Encounter Details Date Type Department Care Team ([facility] st Contact Info) Description 03/13/2025 Telephone [facility] [address] [place], [place] [phone] Brittnee Hanna MD [address] [place] [address] Social History Tobacco Use Types Packs/Day Years [...] documented as of this encounter Care Teams Fact Checker Relationship Specialty Start Date End Date Brittnee Hanna MD [address] [place] [address] PCP - General Family Medicine 08/17/18 Martina Mancia OD [address] [place] [id number] Optometry 07/26/24 Allyson Armando 11 [facility] 3rd [place] [address] Cardiology 01/03/25 Donna Sutton Wiring MechanicValve Mechanic 05/06/24 Bety Benson NP [facility] Endocrinology Endocrinology 11/04/24 documented as of this encounter
[2025-03-23 14:54] VITALS: BP 100/62; PULSE 84; BMI 21.4
--- NOTE | 2025-03-23 14:54 | A.OFFVIS_ITS ---
Vital Signs 03/23/25 14:54 Height 5 ft 2 in Weight 117 lb 4.575 oz BMI 21.4 BP 100/62 Blood Pressure Location Lt brachial Position Sitting Pulse 84 Pulse Source Pulse Oximeter Intake Visit Reasons: s/p hussain/ echo Corporate Aircraft Mechanic Required: Yes Corporate Aircraft Mechanic Language: Rotary Driller Name: voice mitchell [id number] Allergies shellfish derived (SHELLFISH DERIVED) Allergy (Severe, Verified 03/23/25 14:56) Swelling Penicillins Allergy (Mild, Verified 03/23/25 14:56) UNKNOWN - RXN CHILD naproxen (NAPROXEN) Allergy (Unknown, Verified 03/23/25 14:56) CAN'T TAKE PER HER AUTOMOTIVE FUEL SYSTEMS CONVERTER seasonal allergies Allergy (Mild, Uncoded 03/23/25 14:56) Itchy Eyes Medication List - Last Reconciled 03/23/25 by Allyson Armando NP-C albuterol sulfate 90 mcg/actuation (ProAir HFA) 2 puffs inhalation Q4-6H PRN amlodipine 5 mg PO QAM aripiprazole 2 mg PO BEDTIME aspirin 81 mg PO DAILY atorvastatin 80 mg PO QPM blood sugar diagnostic (FreeStyle Precision Freeman Strips) As directed blood-glucose meter (FreeStyle Reed Lite kit) As directed blood-glucose sensor (FreeStyle Ric 3 Sensor device) apply new sensor every 14 days blood-glucose,sole rounding machine operator,cont (FreeStyle Ric 3 [place]) Use daily to monitor blood glucose levels continuously. dulaglutide (Trulicity) 1.5 mg (0.5 mL) subcut QWEEK empagliflozin (Jardiance) 10 mg PO QAM ferrous sulfate (FeroSul) 325 mg PO Q OTHER DAY flash glucose sensor (FreeStyle Ric 2 Sensor kit) As directed fluticasone propion-salmeterol 250-50 mcg/dose (Advair Diskus) 1 puff inhalation BID gabapentin 100 mg PO BID glucose (Dex4 Glucose Quick Dissolve) 16 grams (4 x 4 gram) PO Q15M PRN ibuprofen 600 mg PO TID PRN insulin degludec (Tresiba FlexTouch U-200 insulin) 40 units subcut BEDTIME insulin lispro 15 units subcut TIDWMEAL isosorbide mononitrate ER 30 mg PO DAILY lancets (TRUEplus Lancets) As directed lisinopril 20 mg PO DAILY loratadine 1 tab PO QAM metoprolol succinate ER 1 tab PO QAM olanzapine 7.5 mg PO BEDTIME pantoprazole (Protonix) 20 mg PO BID pen needle, diabetic (Pentips Pen Needle) As directed prazosin 1 mg PO BEDTIME tiotropium bromide (Spiriva with HandiHaler) 1 cap inhalation DAILY HPI HPI s/p hussain/ echo: Details: Cristhian a 59-year-old female with past medical history of hypertension, hyperlipidemia, anterior STEMI 2014 with PCI to the LAD who reported exertional chest tightness on last visit. An echocardiogram and nuclear stress test were ordered. The nuclear stress test has not been completed as of yet and is scheduled for tomorrow. She was not seen in our office between 01/08/2022 and last visit 01/02/2025. Today she reports she is feeling well overall. She no longer has exertional chest tightness. She says the symptom resolved on its own. She is noticing some mild shortness of breath with activity which is not new. No PND, orthopnea or edema. No heart palpitations, lightheadedness, presyncope, syncope, falls. She reports good activity tolerance. Taking meds as directed. 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 installer used [facility] Medical History COVID Type II diabetes with residential use of insulin Symptomatic anemia GI bleed Diabetes Anxiety Depression Asthma History of heart attack CAD (coronary artery disease) Hypercholesteremia HTN (hypertension) Surgical History Stented coronary artery Hx of colonoscopy (04/11/14) Family History Father Diabetes Hypercholesteremia HTN (hypertension) Mother HTN (hypertension) Diabetes Hypercholesteremia Brother HTN (hypertension) Diabetes Social History Household Members: None Housing: House Do you presently have visiting nurse or other home services: Yes ([facility]) Alcohol intake: current Alcohol intake frequency: does not drink Patient Tobacco Use Status: Former Tobacco user service: No Current occupational status: disabled Review of Systems Const All systems reviewed & are unremarkable except as noted in HPI and below ENT Reports dizziness Card Details: chest pains resolved Denies chest pain, Denies chest pain at rest, Denies chest pain with activity, Denies rapid heart rate, Denies pedal edema, Denies edema, Denies leg edema, Denies lightheadedness, Denies palpitations, Denies dyspnea, Reports dyspnea on exertion (mild) and Denies orthopnea Resp Denies cough, Denies dyspnea and Reports dyspnea on exertion (mild) GI Denies hematochezia and Denies change in stool character Musc Denies abnormal gait, Denies limited range of motion, Denies muscle cramps, Denies muscle weakness, Denies numbness, Denies radiating pain into limb, Denies stiffness and Denies tingling Neuro Denies abnormal gait, Reports dizziness, Denies numbness and Denies tingling Endo Denies palpitations Physical Exam Vital Signs: Last Vital Signs Pulse 84 03/23/25 14:54 BP 100/62 03/23/25 14:54 BMI result Body Mass Index 21.4 Const General: cooperative, healthy appearing, comfortable and no acute distress Orientation/consciousness: patient oriented x3 Neck Neck: Yes normal visual inspection Resp Effort & Inspection: normal respiratory effort Auscultation: clear to auscultation bilaterally, no rales, no rhonchi and no wheezes Cardio Rate: regular rate Rhythm: regular rhythm Heart sounds: S1 normal heart sound present, S2 normal heart sound present, no gallops, no murmurs and no rubs Neuro General: patient oriented x3 Extrem General: Yes normal to inspection Psych Appearance: grossly normal Mental Status: mental status grossly normal Speech and movement: Normal speech and movement present Assessment & Plan Assessment & Plan (1) CAD (coronary artery disease): Comment: s/p stent, asa and plavix Code(s): I25.10 - Atherosclerotic heart disease of [place] coronary artery without angina pectoris Category: Medical Plan: Known history of CAD with prior anterior STEMI 2013 with PCI to the LAD with reported chest discomfort with ambulation on last visit. Echocardiogram done 02/08/2025 showed EF 61%, no valve abnormalities and no regional wall motion abnormalities. Nuclear stress test is pending, scheduled for tomorrow. Currently reporting resolution of her symptom without treatment. Will continue to pursue stress test as planned. Continue aspirin, high-dose atorvastatin with ideal LDL goal less than 70, triple antianginals metoprolol, amlodipine and isosorbide. Signs and symptoms of angina reviewed with her. Cardiology follow- up 6 months, sooner if needed. (2) Stented coronary artery: Comment: Lad stent 2013 Code(s): Z95.5 - Presence of coronary angioplasty implant and graft Category: Surgical (3) Chest discomfort: Code(s): R07.89 - Other chest pain Category: Medical Plan: Reported last visit, now resolved. (4) HTN (hypertension): Code(s): I10 - Essential (primary) hypertension Category: Medical Plan: Blood pressure goal less than 130/80, well controlled at present. No medication changes made. (5) Hypercholesteremia: Code(s): E78.00 - Pure hypercholesterolemia, unspecified Category: Medical Plan: [place] LDL goal less than 70. Labs done 03/03/2025 showed LDL 88. Test was performed at 2:30 in the afternoon and was likely not fasting. Continue high- dose atorvastatin. Plan Time spent on chart review, documentation, interview and assessment Coding Level of Care Code Est Pt Level 3 (38472) Complex EM visit Add On G2211 Diagnoses CAD (coronary artery disease) I25.10 Stented coronary artery Z95.5 Chest discomfort R07.89 HTN (hypertension) I10 Hypercholesteremia E78.00 Time Spent (min) 24
== END 2025-03-23 15:41 | disposition home or self-care (01) ==
LOC: HO.HCS 14:22
PROVIDERS: PCP Family Medicine; Visit Provider Nurse Practitioner Family
DX: I25.10 Atherosclerotic heart disease of native coronary artery without angina pectoris (principal); Z95.5 Presence of coronary angioplasty implant and graft; R07.89 Other chest pain; I10 Essential (primary) hypertension; E78.00 Pure hypercholesterolemia, unspecified
CPT/HCPCS: 99213

== ENCOUNTER → 2025-03-23 14:22 | Outpatient (BNVA) | payer MEDICAID, SELFPAY | PROVIDERS: PCP Family Medicine; Visit Provider Nurse Practitioner Family | DX: I25.10 Atherosclerotic heart disease of native coronary artery without angina pectoris (principal); E78.00 Pure hypercholesterolemia, unspecified; I10 Essential (primary) hypertension; R07.89 Other chest pain; Z95.5 Presence of coronary angioplasty implant and graft | CPT/HCPCS: 99212 ==

== ENCOUNTER 2025-04-11 14:24 | Outpatient (AMB) | payer MEDICAID, SELFPAY ==
--- NOTE | 2025-04-11 14:28 | A.OFFVIS_ITS ---
Vital Signs 04/11/25 14:31 Height 5 ft 2 in Weight 119 lb 14.903 oz BMI 21.9 BP 112/72 Blood Pressure Location Rt brachial Position Sitting Pulse 92 Pulse Source Pulse Oximeter Intake Visit Reasons: Type II diabetes Intake Note: Patient present today to follow up on Type 2 Diabetes Mellitus. Last Diabetic Eye exam: October 2024 Last Podiatry Visit: Does not see a Weaver Apprentice Random Glucose: 163 mg/dL Most Recent HgA1C: 9.9% 04/11/2025 Computer Engineering Technologist Required: Yes Computer Engineering Technologist Language: Furniture Mover Services: Computer Engineering Technologist Present Computer Engineering Technologist Name: Mateus [id number] Information Interpreted: non-clinical & clinical Accompanied by: Self / Same As Patient Allergies shellfish derived (SHELLFISH DERIVED) Allergy (Severe, Verified 04/11/25 14:31) Swelling Penicillins Allergy (Mild, Verified 04/11/25 14:31) UNKNOWN - RXN CHILD naproxen (NAPROXEN) Allergy (Unknown, Verified 04/11/25 14:31) CAN'T TAKE PER HER SAMPLE STEAMER seasonal allergies Allergy (Mild, Uncoded 04/11/25 14:31) Itchy Eyes Medication List - Last Reconciled 04/11/25 by GEMA Mackey albuterol sulfate 90 mcg/actuation (ProAir HFA) 2 puffs inhalation Q4-6H PRN amlodipine 5 mg PO QAM aripiprazole 2 mg PO BEDTIME aspirin 81 mg PO DAILY atorvastatin 80 mg PO QPM blood sugar diagnostic (FreeStyle Precision Freeman Strips) As directed blood-glucose meter (FreeStyle [place] Lite kit) As directed blood-glucose sensor (FreeStyle Ric 3 Plus Sensor device) Apply 1 new sensor every 15 days as directed to monitor blood glucose continuously. blood-glucose,fire chief deputy,cont (FreeStyle Ric 3 [place]) Use daily to monitor blood glucose levels continuously. dulaglutide (Trulicity) 3 mg (0.5 mL) subcut QWEEK empagliflozin (Jardiance) 10 mg PO QAM ferrous sulfate (FeroSul) 325 mg PO Q OTHER DAY flash glucose sensor (FreeStyle Ric 2 Sensor kit) As directed fluticasone propion-salmeterol 250-50 mcg/dose (Advair Diskus) 1 puff inhalation BID gabapentin 100 mg PO BID glucose (Dex4 Glucose Quick Dissolve) 16 grams (4 x 4 gram) PO Q15M PRN ibuprofen 600 mg PO TID PRN insulin degludec (Tresiba FlexTouch U-200 insulin) 40 units subcut BEDTIME insulin lispro 14 units (0.14 mL) subcut TIDWMEAL isosorbide mononitrate ER 30 mg PO DAILY lancets (TRUEplus Lancets) As directed lisinopril 20 mg PO DAILY loratadine 1 tab PO QAM metoprolol succinate ER 1 tab PO QAM olanzapine 7.5 mg PO BEDTIME pantoprazole (Protonix) 20 mg PO BID pen needle, diabetic (Pentips Pen Needle) As directed prazosin 1 mg PO BEDTIME tiotropium bromide (Spiriva with HandiHaler) 1 cap inhalation DAILY HPI Comments Details: This is a 59-year-old female with a past medical history of type 2 diabetes, depression, CKD stage 3, asthma-COPD, CAD (STEMI 04/15/2014 requiring PCI with JENISE to proximal LAD), decreased LVEF, gastritis, dizziness and falls and tobacco use presenting for diabetic management. Yakut video aerial photograph interpreter used. She was diagnosed with type 2 diabetes 17 years ago. Family history of Type I: none Family history of Type 2: parents History of DKA - admitted 03/17/2022 for DKA in the setting of acute cystitis. Reviewed CGM data for the past 14 days Glucose management indicator 8.4% Glucose variability 32.9% Very high 32% High 33% Target range 35% Hypoglycemia 0 % She has postprandial hyperglycemia after breakfast and dinner. She also has hyperglycemia overnight Hemoglobin a1c 9.9% 04/11/2025 down from 12.7 % on 10/04/24. Current medication regimen: Tresiba 40 units nightly, lispro 14 units before meals, Trulicity 1.5 mg weekly, Jardiance 10 mg daily. Past medications: Patient denies prior medications. Hypoglycemia symptoms: No interval episodes. Hyperglycemia symptoms: tired, dry mouth, polydipsia, polyuria Eye exam: October 2024 Microvascular complications: neuropathy, nephropathy, no known retinopathy Macrovascular complications: Coronary artery disease ROS: Constitutional: Denies fevers, chills, night sweats. She endorses improved energy. Eyes: Denies vision changes, denies blurry vision Respiratory: No shortness of breath, cough or sputum production. Cardiovascular: No chest pain, chest pressure or chest discomfort. No palpitations or pedal edema. Gastrointestinal: Denies nausea, vomiting, diarrhea, abdominal pain, acid reflux. Denies constipation. Neurologic: No headache or dizziness. She endorses tingling pain in her toes. She is on gabapentin. Endocrine: See [facility] Physical exam: Constitutional: Alert, in no distress. Eyes: Pupils are equal, round and reactive to light. Neck: Supple, Full range of motion. No lymphadenopathy. No palpable thyroid masses. Respiratory: Clear to auscultation. Cardiovascular: S1 S2 regular. No murmurs. No carotid bruits. 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 remote computer terminal operator use of insulin Symptomatic anemia GI bleed Diabetes Anxiety Depression Asthma History of heart attack CAD (coronary artery disease) Hypercholesteremia HTN (hypertension) Surgical History Stented coronary artery Hx of colonoscopy (04/11/14) Family History Father Diabetes Hypercholesteremia HTN (hypertension) Mother HTN (hypertension) Diabetes Hypercholesteremia Brother HTN (hypertension) Diabetes Social History Household Members: None Housing: House Do you presently have visiting nurse or other home services: Yes (NURSE SPECIALIST) Alcohol intake: current Alcohol intake frequency: does not drink Patient Tobacco Use Status: Former Tobacco user service: No Current occupational status: disabled Physical Exam Vital Signs: Last Vital Signs Pulse 92 04/11/25 14:31 BP 112/72 04/11/25 14:31 BMI result Body Mass Index 21.9 Office Procedures Glucose Monitoring Details Details: See [facility] [address] - Glucose monitoring, continuous-physician I&R Procedure code (CPT) selection complete Results AMB Hemoglobin A1c AMB Hemoglobin A1c 9.9 % Last Edit by MONTANA Barker on 04/11/25 14:46 Results Reviewed Results Reviewed: Laboratory Last Values Glucose (Clinic) 163 mg/dL (60-115) H 04/11/25 14:37 Hgb A1c (Clinic) 9.9 % (4.0-6.0) H 04/11/25 14:40 Laboratory Tests 01/07/22 06/18/24 09/19/24 13:22 12:51 10:00 Creatinine 0.94 1.23 Estimated GFR > 60 44 B-Natriuretic Peptide 128 H Triglycerides 206 H Cholesterol 141 LDL Cholesterol, Calc 65 HDL Cholesterol 35 L TSH 0.76 Urine Creatinine 161.00 Urine Microalbumin 17.0 Microalb/Creat Ratio 10.5 Laboratory Tests 10/06/24 13:46 C-Peptide 1.37 Islet Cell Ab Screen NEGATIVE JEREMIAS Antibody <5 Laboratory Tests 03/03/25 14:30 Creatinine 0.95 Estimated GFR 60 AST 24 ALT 27 Triglycerides 172 H Cholesterol 163 LDL Cholesterol, Calc 88 HDL Cholesterol 41 Assessment & Plan Assessment & Plan (1) Type II diabetes with remote computer terminal operator use of insulin: Code(s): E11.9 - Type 2 diabetes mellitus without complications; Z79.4 - termite control representative (current) use of insulin Category: Medical Qualifiers: Diabetes mellitus complication detail: with polyneuropathy Diabetes mellitus complication status: with neurologic complications Qualified Code(s): E11.42 - Type 2 diabetes mellitus with diabetic polyneuropathy; Z79.4 - termite control representative (current) use of insulin Plan In summary this is a 59-year-old diabetic female with poor albeit improving glycemic control on basal bolus insulin and Trulicity. Continue Tresiba 40 units daily. If she develops nocturnal hypoglycemia she will decrease to 36 units daily. Continue insulin lispro 14 units before meals. Increase Trulicity to 3 mg weekly. Continue Jardiance 10 mg daily. If you experience low blood sugar, treat this by eating a chewable fruit candy like skittles or jelly beans (about 8 pieces), 4 ounces (1/2 cup) of fruit juice (not diet), 1 tablespoon of honey or 4 glucose tablets or a 15 g glucose gel packet. If your blood sugar is under 50, take double the amount of one of the above. Recheck your blood sugar in [address] if she does not have a reliable way to check her blood sugar or has symptoms of hypoglycemia. Discussed pathophysiology of Type II Diabetes Mellitus with the patient in detail.? I explained the group home risks and complications associated with uncontrolled diabetes including nephropathy, neuropathy, peripheral vascular disease, retinopathy, increased risk of heart disease and stroke.? Advance to Ric 3+ since Ric 3 is being discontinued. Follow up in 6 weeks for type 2 diabetes. Orders: Orders AMB Hemoglobin A1c Today E11.9 - Type 2 diabetes mellitus without complications, Z79.4 - halfway (current) use of insulin AMB Glucose Monitoring Today E11.9 - Type 2 diabetes mellitus without complications Medications: New blood-glucose sensor (FreeStyle Ric 3 Plus Sensor device) Apply 1 new sensor every 15 days as directed to monitor blood glucose continuously. 2 ea 11RF dulaglutide (Trulicity) 3 mg (0.5 mL) subcut QWEEK 2 mL 2RF Changed From insulin lispro 15 units subcut TIDWMEAL To insulin lispro 14 units (0.14 mL) subcut TIDWMEAL 15 mL 5RF Discontinued blood-glucose sensor (FreeStyle Ric 3 Sensor device) Discontinued Reason: Doctor's Order apply new sensor every 14 days 2 ea 11RF E11.9 - Type 2 diabetes mellitus without complications, Z79.4 - termite control representative (current) use of insulin dulaglutide (Trulicity) Discontinued Reason: Doctor's Order 1.5 mg (0.5 mL) subcut QWEEK 2 mL 2RF Patient Instructions: Continue Tresiba 40 units nightly. If you develop low blood sugars overnight please decrease to 36 units nightly. Continue lispro 14 units before meals Increase Trulicity to 3 mg weekly Continue Jardiance 10 mg daily If you experience low blood sugar, treat this by eating a chewable fruit candy like skittles or jelly beans (about 8 pieces), 4 ounces (1/2 cup) of fruit juice (not diet), 1 tablespoon of honey or 4 glucose tablets. If your blood sugar is under 50, take double the amount of one of the above. Recheck your blood sugar in 15 minutes. Contin?e tomando Tresiba 40 unidades cada noche. Si presenta niveles bajos de az?car colin la noche, reduzca la dosis a 36 unidades cada noche. Contin?e tomando lispro 14 unidades antes de las comidas. Aumente la dosis de Trulicity a 3 mg por semana. Continue Jardiance 10 mg daily Si experimenta niveles bajos de az?car, tr?telo con un caramelo masticable de fruta freddy Skittles o Jelly Beans (aproximadamente 8 piezas), 113 ml (1/2 taza) de jugo de fruta (no light), 1 cucharada de miel o 4 tabletas de glucosa. Si campbell nivel de az?car es inferior a 50, tome el doble de la dosis de moreno de los medicamentos mencionados. Vuelva a medir campbell nivel de az?car en 15 minutos. Coding Level of Care Code Est Pt Level 4 (29095) Diagnoses Type 2 diabetes mellitus with diabetic polyneuropathy, with long-term current use of insulin E11.42; Z79.4 Diabetes mellitus complication detail: with polyneuropathy Diabetes mellitus complication status: with neurologic complications CPT Codes Details - CPT: 82241 - Glucose monitoring, continuous-physician I&R ([id number])
[2025-04-11 14:31] VITALS: BP 112/72; PULSE 92; BMI 21.9
[2025-04-11 14:42] LABS: Glucose, Whole Blood 163 mg/dL (60-115)
--- OUTSIDE RECORDS SUMMARY | 2025-04-11 15:25 | XMS_ITS | Encounter Summary ---
Author Organization [employer] Address [address] [facility] 7t [place] [address] Care Team Providers Care Painter Maintenance Name Role Phone Brittnee Hanna MD Primary Care Provider +1- [phone] Di Hyde PharmD Unavailable Martina Mancia OD Unavailable Prabha, Allyson Unavailable Encounter Details Date Type Department Care Team (Late st Contact Info) Description 09/22/2022 Abstract [facility] MEDICINE [address] [place] [address] Brittnee Hanna MD [address] [place] [address] Social History Tobacco Use Types Packs/Day Years [...] AM EST documented as of this encounter Functional Status * Over the past 2 weeks, how often have you been bothered by any of the following problems? Question Answer Date of Assessment Author Patient Health Questionnaire-2 Score 0 02/0 01/2023 9:47 AM EST Katelynn Ramirez MA * Over the past 2 weeks, how often have you been bothered by any of the following problems? Question Answer Date of Assessment Author Little interest or pleasure in doing things Not at all 09/22/2022 9:47 AM Katelynn Stark MA Feeling down, depressed, or hopeless Not at all 09/22/2022 9:47 AM Katelynn Stark MA Trouble falling or staying asleep, or sleeping too much Not at all 09/22/2022 9:47 AM Kamilla Stark MA Feeling tired or having carolynn le energy Not at all 09/22/2022 9:47 AM Katelynn Stark MA Poor appetite or overeating Not at all 09/22/2022 9: 47 AM Katelynn Stark MA Feeling bad about yourself - or that you are a failure or have let yourself or your family down Not at all 09/22/2022 9:47 AM Katelynn Laurent MA Trouble concentrating on thi ngs, such as reading the newspaper or watching television Not at all 09/22/2022 9:47 AM Katelynn Stark MA Moving or speaking so slowly that other people could have noticed? Or the opposite - being so fidgety or restless that you have been moving around a lot more than usual. Not at all 09/22/2022 9:47 AM Katelynn Stark MA Thoughts that you would be b justus off or hurting yourself in some way Not at all 09/22/2022 9:47 AM Katelynn Stark MA Patient Health Questionnaire -9 Score 0 09/22/2022 9:47 AM Katelynn Stark MA documented as of this encounter Plan of Treatment Upcoming Encounters Date Type Department Care Team (Late st Contact Info) Description 04/26/2025 11:30 AM EDT Office Visit [facility] [address] [place] [address] Brittnee Hanna MD [address] [place] [address] documented as of this encounter Procedures Procedure [...] Blood Venous blood specimen / Unknown Result [facility] Provider LAB BLOOD ORDERABLES Emelia l Result * Basic Metabolic Panel (06/05/2022) Creatinine 1.0 0.5 - 1.1 mg/dL Blood Venous blood specimen / Unknown Result [facility] Provider MD LAB BLOOD ORDERABLES Emelia l Result * (ABNORMAL) Lipid Panel, Standard (06/05/2022) Triglycerides 163(A) 40 - 160 mg/dL Cholesterol 209(A) 0 - 200 mg/dL HDL Cholesterol 70 35 - 70 mg/dL LDL Cholesterol 111 mg/dL Blood Venous blood specimen / Unknown Result [facility] Provider MD LAB BLOOD ORDERABLES Emelia l Result * Pap Smear (05/16/2022 12:00 AM EDT) Swab Result [facility] Provider MD LAB CYTOLOGY ORDERABLES F inal Result [facility]ISTORICAL [facility] * Colonoscopy (08/21/2020) Pathologist [facility] Colonoscopy hyperplastic polyp Dr. Olivarez Historical Provider HEALTH MAINTENANCE Final Result * HIV-1 antibody, EIA (04/25/2019) Pathologist [facility] External HIV-1 Antibody Negative Blood Venous blood specimen / Unknown [facility] Provider LAB BLOOD ORDERABLES Emelia l Result * Mammography (06/14/2018) Pathologist [facility] Mammogram normal Anatomical Region Laterality Modality Other [facility] Provider HEALTH MAINTENANCE Final Result * Hepatitis C Antibody with Reflex to HCV, RNA, Quantitative, Real-Time PCR (02/22/2014) Blood Venous blood specimen / Unknown 02/22/2014 [facility] Provider LAB BLOOD ORDERABLES Emelia l Result documented in this encounter Visit Diagnoses Not on filedocumented in this encounter Additional Health Concerns Assessment Noted Time PHQ-9 Depression Total Score: 0 09/22/19 23 9:47 AM EST documented as of this encounter Care Teams Painter Maintenance Relationship Specialty Start Date End Date Brittnee Hanna MD [address] [place] [address] PCP - General Family Medicine 08/17/18 Di Hyde PharmD [address] [place] [address] Pharmacist Internal Medicine 01/06/23 08/31/24 Martina Mancia OD [address] [place] [address] Optometry 07/26/24 Allyson Armando [address]rd [place] [address] Cardiology 01/03/25 Donna Sutton Marketing Technology SpecialistGarnett Machine Operator 05/06/24 Bety Benson NP [facility] Endocrinology Endocrinology 11/04/24 documented as of this encounter
--- OUTSIDE RECORDS SUMMARY | 2025-04-11 15:25 | XMS_ITS | Encounter Summary ---
Author Organization [employer] Address [address] [facility] 7t [place] [address] Care Team Providers Care Electro Optics Engineer Name Role Phone Brittnee Hanna MD Primary Care Provider +1- [phone] Martina Mancia OD Unavailable [phone] Allyson Armando Unavailable Encounter Details Date Type Department Care Team ([facility] Contact Info) Description 11/01/2024 Orders Only [facility] MEDICINE [address] [place] [address] Nguyen Orourke MD [address] [place] [address] Type 2 diabetes mellitus with other circulatory complication, with long-term current use of insulin ([facility]) Social History Tobacco Use Types Packs/Day Years [...] Description 04/26/2025 11:30 AM EDT Office Visit [facility] MEDICINE [address] [place] [address] Brittnee Hanna MD [address] [place] [address] documented as of this encounter Goals Goal Patient Goal Type Associated Problems Recent Progress Patient-Stated? Author Blood Pressure < 140/90 Blood Pressure 112/58(2024 3:02 PM EST) No BhupendrasDi Meade, PharmD Hemoglobin A1c < 7 Result Component 10.8(01/11/20 25 12:00 AM EDT) No BhupendrasDi Meade, PharmD documented as of this encounter Visit Diagnoses Diagnosis Type 2 diabetes mellitus with other circulatory complication, with long-term current use of insulin ([facility]) documented in this encounter Additional Health Concerns Assessment Noted Time PHQ-9 Depression Total Score: 15 024 10:35 AM EDT documented as of this encounter Care Teams Electro Optics Engineer Relationship Specialty Start Date End Date Brittnee Hanna MD [address] [place] [address] PCP - General Family Medicine 08/17/18 Martina Mancia OD [address] [place] [address] Optometry 07/26/24 Allyson Armando [address] [facility] 3rd [place] [address] Cardiology 01/03/25 Donna Sutton Director Clinical ApplicationsCommissary Helper 05/06/24 Bety Benson, AGUSTO [facility] Endocrinology Endocrinology 11/04/24 documented as of this encounter
--- OUTSIDE RECORDS SUMMARY | 2025-04-11 15:25 | XMS_ITS | Encounter Summary ---
Author Organization [employer] Address [address] [facility] 7t [place] [address] Care Team Providers Care Pearl Stringer Name Role Phone Brittnee Hanna MD Primary Care Provider [phone]- [phone] Tan Mancian OD Unavailable [phone] PrabhaAllyson Unavailable Encounter Details Date Type Department Care Team ([facility] st Contact Info) Description 03/13/2025 Telephone [facility] [address] [place], [place] [phone] Brittnee Hanna MD [address] [place] [address] Social History Tobacco Use Types Packs/Day Years [...] Description 04/26/2025 11:30 AM EDT Office Visit [facility] MEDICINE [address] [place] [address] Brittnee Hanna MD [address] [place] [address] documented as of this encounter Goals Goal Patient Goal Type Associated Problems Recent Progress Patient-Stated? Author Blood Pressure < 140/90 Blood Pressure 112/58(2024 3:02 PM EST) No Piers-Gambl e, Di, PharmD Hemoglobin A1c < 7 Result Component 10.8(01/11/20 25 12:00 AM EDT) No Piers-Gambl e, Di, PharmD documented as of this encounter Visit Diagnoses Not on filedocumented in this encounter Additional Health Concerns Assessment Noted Time PHQ-9 Depression Total Score: 15 024 10:35 AM EDT documented as of this encounter Care Teams Pearl Stringer Relationship Specialty Start Date End Date Brittnee Hanna MD [address] [place] [address] PCP - General Family Medicine 08/17/18 Martina Mancia OD [address] [place] [address] Optometry 07/26/24 Allyson Armando [address] [place] [address] Cardiology 01/03/25 Donna Sutton Journeyman Meat CutterCommunications Tower Climber 05/06/24 Bety Benson TANNING WHEEL FILLER [facility] Endocrinology Endocrinology 11/04/24 documented as of this encounter
--- OUTSIDE RECORDS SUMMARY | 2025-04-11 15:25 | XMS_ITS | Encounter Summary ---
Author Organization [employer] Address [address] [facility] 7t [place] [address] Care Team Providers Care Lithographic Photographer Apprentice Name Role Phone Brittnee Hanna MD Primary Care Provider [phone]- [phone] Tan Mancian OD Unavailable [phone] PrabhaAllyson Unavailable Encounter Details Date Type Department Care Team ([facility] st Contact Info) Description 02/14/2025 Telephone C [facility] [address] [place], [place] [phone] Brittnee Hanna MD [address] [place] [address] Social History Tobacco Use Types Packs/Day Years [...] Description 04/26/2025 11:30 AM EDT Office Visit [facility] MEDICINE [address] [place] [address] Brittnee Hanna MD [address] [place] [address] documented as of this encounter Goals Goal [...] documented as of this encounter Care Teams Lithographic Photographer Apprentice Relationship Specialty Start Date End Date Brittnee Hanna MD [address] [place] [address] PCP - General Family Medicine 08/17/18 Martina Mancia OD [address] [place] [address] Optometry 07/26/24 Allyson Armando [address] [place] [address] Cardiology 01/03/25 Donna Sutton Form Tamping Machine OperatorBeer Brewer 05/06/24 Bety Benson CIVIL CADD TECHNICIAN [facility] Endocrinology Endocrinology 11/04/24 documented as of this encounter
--- OUTSIDE RECORDS SUMMARY | 2025-04-11 15:25 | XMS_ITS | Encounter Summary ---
Author Organization [employer] Address [address] [facility] 7t [place] [address] Care Team Providers Care Sound Assistant Name Role Phone Brittnee Hanna MD Primary Care Provider +1- [phone] Tan Mancian OD Unavailable [phone] Adolfo Armandon Unavailable Reason for Visit * Reason Comments Med Refill Encounter Details Date Type Department Care Team ([facility] st Contact Info) Description 04/05/2025 Refill [facility] MEDICINE [address] [place] [address] Brittnee Hanna MD [address] [place] [address] Mild intermittent asthma without complication Social History [...] Description 04/26/2025 11:30 AM EDT Office Visit [facility] MEDICINE [address] [place] [address] Brittnee Hanna MD [address] [place] [address] documented as of this encounter Goals Goal [...] documented as of this encounter Care Teams Sound Assistant Relationship Specialty Start Date End Date Brittnee Hanna MD [address] [place] [address] PCP - General Family Medicine 08/17/18 Martina Mancia OD [address] [place] [address] Optometry 07/26/24 Allyson Armando [address] [place] [address] Drive 3rd [place] [address] Cardiology 01/03/25 Donna Sutton Documentation SpecialistCommercial Management Accountant 05/06/24 Bety Benson CHOREOGRAPHY DIRECTOR [facility] Endocrinology Endocrinology 11/04/24 documented as of this encounter
--- OUTSIDE RECORDS SUMMARY | 2025-04-11 15:25 | XMS_ITS | Encounter Summary ---
Author Organization [employer] Address [address] [place] [address] 7t [place] [address] Care Team Providers Care Brine Process Operator Name Role Phone Brittnee Hanna MD Primary Care Provider +1- [phone] Di Hyde PharmD Unavailable [phone] Martina Mancia OD Unavailable [phone] Prabha, Allyson Unavailable Reason for Visit * Reason Comments Med Refill Encounter Details Date Type Department Care Team ([facility] st Contact Info) Description 02/18/2023 Refill [facility] MEDICINE [address] [place], [place] [phone] Brittnee Hanna MD [address] [place], [place] [phone] Type 2 diabetes mellitus with other circulatory complication, with long-term current use of insulin ([facility]) Social History Tobacco Use Types [...] Description 04/26/2025 11:30 AM EDT Office Visit [facility] MEDICINE [address] [place] [address] Brittnee Hanna MD [address] [place] [address] documented as of this encounter Goals Goal Patient Goal Type Associated Problems Recent Progress Patient-Stated? Author Hemoglobin A1c < 7 Result Component 10.8( 12:00 AM EDT) No Di Hyde, PharmD documented as of this encounter Visit Diagnoses Diagnosis Type 2 diabetes mellitus with other circulatory complication, with long-term current use of insulin ([facility]) documented in this encounter Additional Health Concerns Assessment Noted Time PHQ-9 Depression Total Score: 21 023 9:47 AM EDT documented as of this encounter Care Teams Brine Process Operator Relationship Specialty Start Date End Date Brittnee Hanna MD [address] [place] [address] PCP - General Family Medicine 08/17/18 Di Hyde, PharmD [address] [place] [address] Pharmacist Internal Medicine 01/06/23 08/31/24 Martina Mancia OD [address] [place] [address] Optometry 07/26/24 Allyson Armando [address] [place] [address] Floor [employer] [address] Cardiology 01/03/25 Donna Sutton Supervisor Lump RoomSupervisor Abattoir 05/06/24 Bety Benson NP [facility] Endocrinology Endocrinology 11/04/24 documented as of this encounter
--- OUTSIDE RECORDS SUMMARY | 2025-04-11 15:25 | XMS_ITS | Encounter Summary ---
Author Organization [employer] Address [address] [facility] 7t [place] [address] Care Team Providers Care Support Team Member Name Role Phone Brittnee Hanna MD Primary Care Provider [phone]- [phone] Tan Mancian OD Unavailable [phone] PrabhaAllyson Unavailable Encounter Details Date Type Department Care Team ([facility] st Contact Info) Description 04/06/2025 Refill [facility] MEDICINE [address] [place] [address] Brittnee Hanna MD [address] [place] [address] Mild intermittent asthma without complication Social History [...] Description 04/26/2025 11:30 AM EDT Office Visit [facility] MEDICINE [address] [place] [address] Brittnee Hanna MD [address] [place] [address] documented as of this encounter Goals Goal [...] documented as of this encounter Care Teams Support Team Member Relationship Specialty Start Date End Date Brittnee Hanna MD [address] [place] [address] PCP - General Family Medicine 08/17/18 Martina Mancia OD [address] [place] [address] Optometry 07/26/24 Allyson Armando [address] [facility] [address] 3rd Floor [employer] [employer] [address] Cardiology 01/03/25 Donna Sutton Sample TesterExecutive Consultant 05/06/24 Bety Benson, CABLE LAYER [facility] Endocrinology Endocrinology 11/04/24 documented as of this encounter
--- OUTSIDE RECORDS SUMMARY | 2025-04-11 15:25 | XMS_ITS | Encounter Summary ---
Author Organization [employer] Address [address] [facility] 7t [place] [address] Care Team Providers Care Junction Maker Name Role Phone Brittnee Hanna MD Primary Care Provider [phone]- [phone] Tan Mancian OD Unavailable [phone] Adolfo Armandon Unavailable Reason for Visit * Reason Comments Med Refill Encounter Details Date Type Department Care Team ([facility] st Contact Info) Description 10/03/2024 Refill [facility] MEDICINE [address] [place] [address] Brittnee Hanna MD [address] [place] [address] Mild intermittent asthma without complication Social History [...] Office Visit [facility]INE [address] [place] [address] Brittnee Hanna MD [address] [place] [address] documented as of this encounter Goals Goal [...] documented as of this encounter Care Teams Junction Maker Relationship Specialty Start Date End Date Brittnee Hanna MD [address] [place] [address] PCP - General Family Medicine 08/17/18 Martina Mancia OD [address] [place] [address] Optometry 07/26/24 Allyson Armando [address] [place] [address] Drive 3rd [place] [address] Cardiology 01/03/25 Donna Sutton Legal AdministratorSheet Metal Erector 05/06/24 Bety Benson [facility]F [facility] Endocrinology Endocrinology 11/04/24 documented as of this encounter
--- OUTSIDE RECORDS SUMMARY | 2025-04-11 15:25 | XMS_ITS | Clinical Summary ---
Author Organization [employer] Address [address] [place] [address] Care Team Providers Care Aerial Photograph Interpreter Name Role Phone Brittnee Hanna MD Primary Care Provider [phone] Gavino, Martina OD Unavailable [phone] Prabha, Allyson Unavailable Allergies Active Allergy Reactions Criticality Noted Date Comments Naproxen 06/18/2024 Other Reaction(s): CAN'T TAKE PER HER SAWSMITH Penicillin V 08/13/2010 Other reaction(s): unspecified Penicillins Hives 03/17/2022 Shellfish-Derived Products Swelling High 0 Other reaction(s): unspecified Medications * This document contains information received from the source organization and may not represent a complete record from that organization. Continuous Blood Gluc Services Delivery Driver (FreeStyle Ric 2 [place]) device Use as directed 1 each 023 Active Continuous Glucose Sensor (FreeStyle Ric 2 Sensor) miscIndications :Type 2 diabetes mellitus with hyperglycemia, with long-term current use of insulin ([facility]) USE DIRECTED TO TEST BLOOD SUGAR CHANGE EVERY 14 DAYS 2 each 024 Active Blood Glucose Monitoring Suppl (FreeStyle [place] Lite) w/Device kitIndications: Type 2 diabetes mellitus with hyperglycemia, with long-term current use of insulin ([facility]) TEST BLOOD SUGAR FIVE TIMES DAILY DIRECTED 1 kit 024 Active OLANZapine (ZyPREXA) 7.5 MG tabletIndicatio ns:Recurrent major depressive disorder, in remission ([facility]) TAKE 1 TABLET BY MOUTH AT BEDTIME 30 tablet 11 024 Active Alcohol Swabs (Alcohol Prep) 70 % padsIndications :Type 2 diabetes mellitus with hyperglycemia, with long-term current use of insulin ([facility]) USE BEFORE TEST BLOOD SUGAR AND INSULIN 100 each 024 Active glucose 4 g chewable tabletIndicatio ns:Type 2 diabetes mellitus with hyperglycemia, with long-term current use of insulin ([facility]) Chew 4 tablets (16 g) if needed for low blood sugar. 50 tablet Active glucagon (Baqsimi Two Pack) 3 MG/DOSE nasal powderIndicatio ns:Type 2 diabetes mellitus with hyperglycemia, with long-term current use of insulin ([facility]) For low blood sugar emergencies, insert 3mg into one nostril, may repeat the dose if no response after 15 minutes. 1 each Active loratadine (Claritin) 10 MG tabletIndicatio ns:Allergic rhinitis, unspecified seasonality, unspecified trigger TAKE 1 TABLET BY MOUTH EVERY MORNING FOR ALLERGIES 90 tablet 3 024 Active glucose blood (FreeStyle Precision Freeman Test) test stripIndication s:Type 2 diabetes mellitus with hyperglycemia, with long-term current use of insulin ([facility]) TEST BLOOD SUGAR UP TO FOUR [...] hyperglycemia, with long-term current use of insulin ([facility]) Use as directed to check for [...] mm misc Use as instructed 100 each Active Dulaglutide 0.75 MG/0.5ML solution auto-injector Inject under the skin. Active insulin lispro (HumaLOG) 100 UNIT/ML injectionIndica tions:Type 2 diabetes mellitus with other circulatory complication, with long-term current use of insulin ([facility]) Administer 18 units daily before each meal 15 mL Active lisinopril 20 MG tabletIndicatio ns:Essential hypertension TAKE 1 TABLET BY MOUTH EVERY MORNING 90 tablet Active atorvastatin (Lipitor) 80 MG tabletIndicatio ns:Type 2 diabetes mellitus with hyperglycemia, with long-term current use of insulin ([facility]),Dysli pidemia TAKE 1 TABLET BY MOUTH AT BEDTIME 90 tablet Active gabapentin (Neurontin) 100 MG capsuleIndicati ons:Neuropathy TAKE 1 CAPSULE BY MOUTH TWICE DAILY 60 capsule Active isosorbide mononitrate ER (Imdur) 30 MG 24 hr tabletIndicatio ns:Essential hypertension TAKE 1 TABLET BY MOUTH EVERY MORNING 90 tablet Active insulin glargine (Lantus SoloStar) 100 UNIT/ML penIndications: Type 2 diabetes mellitus with other circulatory complication, with long-term current use of insulin ([facility]) INJECT 42 UNITS SUBCUTANEOUSLY EVERY DAY AT BEDTIME, IF FASTING BLOOD SUGAR IS > 180 INCREASE TO 46 UNITS AFTER 3 DAYS 15 mL 025 Active amLODIPine (Norvasc) 5 MG tabletIndicatio ns:Essential hypertension TAKE 1 TABLET BY MOUTH EVERY MORNING 90 tablet 025 Active Spiriva HandiHaler 18 MCG inhalation capsuleIndicati ons:Chronic obstructive pulmonary disease, unspecified COPD type ([facility]),Mild intermittent asthma without complication USE 1 CAPSULE FOR INHALATION ONCE A DAY DO NOT SWALLOW CAPSULE 30 capsule Active TRUEplus Lancets 33G miscIndications :Type 2 diabetes mellitus with hyperglycemia, with long-term current use of insulin ([facility]) TEST BLOOD SUGAR FIVE TIMES DAILY 200 each 11 07/02/2 025 Active aspirin (Aspirin Adult Low Strength) 81 MG EC tabletIndicatio ns:Coronary artery stenosis Take 1 tablet (81 mg) by mouth in the morning. 90 tablet 3 025 Active chlorthalidone (Hygroton) 25 MG tabletIndicatio ns:Essential hypertension TAKE ONE HALF TABLET BY MOUTH ONCE DAILY 45 tablet 1 025 Active metoprolol succinate XL (Toprol-XL) 50 MG 24 hr tabletIndicatio ns:Essential hypertension Take 1 tablet (50 mg) by mouth in the morning. Do not crush or chew. 90 tablet 3 025 Active Advair Diskus 250-50 MCG/ACT aerosol powderIndicatio ns:Mild intermittent asthma without complication INHALE 1 PUFF BY MOUTH TWICE DAILY IN THE MORNING AND IN THE EVENING. RINSE MOUTH AFTER USING. 60 each 5 025 Active albuterol (Ventolin HFA) 108 (90 Base) MCG/ACT inhalerIndicati ons:Mild intermittent asthma without complication INHALE 2 PUFFS BY MOUTH EVERY 4 HOURS NEEDED FOR WHEEZING OR SHORTNESS OF BREATH 18 g 025 Active aspirin (Aspirin Adult Low Strength) 81 MG EC tabletIndicatio ns:Coronary artery stenosis Take 1 tablet (81 mg) by mouth in the morning. 90 tablet 3 024 2024 Discontinued(R eorder (will not trigger notification to Pharmacy)) metoprolol succinate XL (Toprol-XL) 50 MG 24 hr tabletIndicatio ns:Essential hypertension Take 1 tablet (50 mg) by mouth in the morning. Do not crush or chew. 90 tablet 3 024 2024 Discontinued(R eorder (will not trigger notification to Pharmacy)) chlorthalidone (Hygroton) 25 MG tabletIndicatio ns:Essential hypertension TAKE ONE HALF TABLET BY MOUTH ONCE DAILY 45 tablet 1 025 2024 Discontinued(R eorder (will not trigger notification to Pharmacy)) Advair Diskus 250-50 MCG/ACT aerosol powderIndicatio ns:Mild intermittent asthma without complication INHALE 1 PUFF BY MOUTH TWICE DAILY IN THE MORNING AND IN THE EVENING. RINSE MOUTH AFTER USING. 60 each 5 025 2024 Discontinued albuterol (Ventolin HFA) 108 (90 Base) MCG/ACT inhalerIndicati ons:Mild intermittent asthma without complication INHALE 2 PUFFS BY MOUTH EVERY 4 HOURS NEEDED FOR WHEEZING OR SHORTNESS OF BREATH 18 g 025 2024 Discontinued(R eorder (will not trigger notification to Pharmacy)) Active Problems Patient Care Coordination No te Formatting of this note migh t be different from the original. Enrolled in [facility] DM clinic with Di Hyde, ShabbirD, [facility] Problem Noted Date Diagnosed Date Unintentional weight loss 08/10/2024 Overview (02/15/2025): Pt with unintentional weight loss. Differential includes uncontrolled diabetes, neoplasm, GI etiology vs other. Baseline weight was 140 lbs in 2021 Weight 120 lbs 08/21/2024 -TSH 0.62 05/2024 -HIV neg 04/2019 -colonoscopy 2020 but recommended 5 year follow up due to poor prep -CXR 03/19/24 unremarkable -mammo normal BIRADS 1, 07/2023 -referral to GI and Endocrinology placed 09/01/24 -note from GI Swathi Valdez 02/08/25 She will be due for colonoscopy in 2025. Apparently she has been referred to our office for weight loss. However review of her records show that her hemoglobin A1c is nearly 11% so it is most likely that her ongoing weight loss is due to her uncontrolled diabetes on her body's inability to utilize any p.o. intake for energy as she is passing it out via glucose of the urine. Her CIC is currently contrtolled and she has not needed any medication. She stopped her pantoprazole and for about a year did not have any HB but now it has returned. Since she has a hx of erosive gastritis we will re start her pantoprazole 20mg bid and consider repeat EGD next year with her colonoscopy since she has no abd pain. Assessment & Plan (2024 2:11 PM EST): [...] for OP and psychiatry services in the [place] area. clinician provided contact information for [facility] and [facility] in [place]. Dizziness 12/30/2023 Overview (12/31/2023): Pt continues to [...] as pharmacomtherapy, [facility], and [facility] pharmacy smoking cessation clinic Discussed USPSTF recommends [...] as pharmacomtherapy, [facility] smoking cessation group, and [facility] pharmacy smoking cessation clinic Discussed USPSTF recommends [...] as pharmacomtherapy, [facility] smoking cessation group, and [facility] pharmacy smoking cessation clinic Discussed USPSTF recommends [...] due after 07/27/25 -eye care facilitated by [facility] on 05/20/2023 -dental home is [facility], [facility] -health care proxy filed 04/07/24 Assessment & Plan (07/27/2024 2:57 PM EST): -next physical exam due after 07/27/25 -eye care facilitated by [facility] on 05/20/2023 -dental home is [facility], [facility] -health care proxy filed 04/07/24 Assessment & Plan (04/07/2024 10:24 AM EDT): -next physical exam due after 06/10/2024 -eye care facilitated by [facility] on 05/20/2023 -dental home is [facility], [facility] -health care proxy filed 04/07/24 Assessment & Plan (06/10/2023 2:19 PM EDT): -next physical exam due after 06/10/2024 -eye care facilitated by [facility] on 05/20/2023 -dental home is Anemia [...] GI 05/16/22. Coronary artery stenosis 04/01/2022 Overview (03/29/2025): S/P anterolateral STEMI 04/15/14 requiring PCI with [...] (at night given -poor EF and DM) -Seen by Allyson Armando NP 03/27/25 Continue aspirin, high-dose atorvastatin, triple antianginals, metoprolol, amlodipine and isosorbide. Assessment & Plan (07/27/2024 2:54 PM EST): [...] -does not take meds before visits -[facility] referral Disorder of cardiovascular system 05/03/2014 Overview [...] strict ED precautions. -Referral to re-establish with [facility] Cardiology placed Assessment & Plan (09/22/2022 [...] for OP and psychiatry services in the [place] area. clinician provided contact information for [facility] and [facility] in [place]. Assessment & Plan (01/08/2023 10:29 AM EDT): Assessment: Patient with feeling down/depressed, little interest in [...] from psychopharmacology service to help stabilize symptoms. At this time Cynthia Okeefe meets criteria for Visit Diagnoses: Problem List Items Addressed This Visit Other Depressive disorder Patient ready to address current needs Yes Strengths include reaching out to be connected to behavioral health services. PLAN: 1. Follow up with [facility]: Not recommended for follow-up 2. Patient goal is to engage in behavioral health services. 3. Behavioral Recommendations a. Practice using a different coping skill on a daily basis b. Once services are established, attend therapy and medication management appointments c. Patient will reach out to a [facility] during next PCP appointment if [...] long-term current use of insulin 03/25/2012 Overview (02/15/2025): Diabetes is not controlled. [facility]referred [facility] and restablished 10/2024 at [facility] . Note from 02/07/25 reviewed. On Freestyle Ric 3 Lab Results Component [...] to Cardiology 07/27/24 -referral to endocrinology 09/01/24 -Trulicity 0.75 mg weekly started by endo 11/01/24 -endo note 12/13/24 I -Lantus switched to Tresiba due to hypoglycemia 44 units 02/07/25 -continue insulin lispro 15 units before meals 12/13/24 -increase Trulicity to 1.5 mg weekly 02/07/25 -during endo visit 02/07/25 We started the discussion about adding an SGLT2 once her GMI comes down a bit. [facility] be at increased risk of UTI and yeast infections. Assessment & Plan (2024 2:13 PM EST): [...] glucose monitor. Needs sensors. 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 Lab Results Component [...] admitted on 03/17/2022 for DKA (diabetic ketoacidosis) ([facility]) [E11.10];Acute cystitis without hematuria [N30.00] Results: Results Units 03/17/22 1041 HGB-A1C % 12.5 H Results Units 03/17/22 1041 03/18/22 0441 BETA HYDROXYBUTYRATE mg/dL >60.0 H 4.1 H Outpatient history: Follows: PCP Seen ~last month History: T2DM (>10yrs) Home regimen: Lantus (Per patient) 10 units at night 10 units with meals Hospital Course / Interval History Admitted: 03/17/2022 DKA Hyperglycemia / GMA / elevated BHB Insulin gtt 03/18/2022: Transitioned to MDI therapy Recommendations: A1c elevated 2nd to Non-compliance Blood sugars improved but remain slightly elevated Insulin therapy / Adjustments: Increase Lantus to 30 units Increase Humalog to 10 units with meals Cont Mod dose HISS q ac/hs Hypoglycemia per protocol Ok for discharge home on current regimen Follow up PCP 1 - 2 weeks [...] mg/dL >60.0 H 4.1 H Outpatient history: Follows: PCP Seen ~last month History: T2DM (>10yrs) Home regimen: Lantus (Per patient) 10 units at night 10 units with meals Hospital Course / Interval History Admitted: 03/17/2022 DKA Hyperglycemia / GMA / elevated BHB Insulin gtt 03/18/2022: Transitioned to MDI therapy Recommendations: A1c elevated 2nd to Non-compliance Blood sugars improved but remain slightly elevated Insulin therapy / Adjustments: Increase Lantus to 30 units Increase Humalog to 10 units with meals Cont Mod dose HISS q ac/hs Hypoglycemia per protocol Ok for discharge home on current regimen Follow up PCP 1 - 2 weeks [...] Encounters Date Type Department Care Team Description 04/06/2025 Refill [facility] MEDICINE [address] [place] [address] Brittnee Hanna MD Mild intermittent asthma without complication 04/05/2025 Refill [facility] MEDICINE [address] [place] [address] Brittnee Hanna MD Mild intermittent asthma without complication 03/13/2025 Refill [facility] MED & PEDS [address] [place] [address] Brittnee Hanna MD Coronary artery stenosis; Essential hypertension 03/13/2025 Telephone [facility] P[facility] [address] [place] [address] Brittnee Hanna MD 03/09/2025 Refill [facility] [address] [place] [address] Brittnee Hanna MD Mild intermittent asthma without complication 02/14/2025 Telephone [facility] MED & PEDS [address] [place] [address] Brittnee Hanna MD 02/14/2025 Refill [facility] MEDICINE [address] [place] [address] Brittnee Hanna MD Essential hypertension; Chronic obstructive pulmonary disease, unspecified COPD type ([facility]); Mild intermittent asthma without complication; Type 2 diabetes mellitus with hyperglycemia, with long-term current use of insulin ([facility]) 02/07/2025 Orders Only GENERIC EXTERNAL DATA DEPARTMENT Provider, Generic External Data 01/31/2025 Refill [facility] P[facility]S [address] [place] [address] Brittnee Hanna MD Mild intermittent asthma without complication 01/24/2025 Refill [facility] MEDICINE [address] [place] [address] Nguyen Orourke MD Type 2 diabetes mellitus with other circulatory complication, with long-term current use of insulin ([facility]) 01/19/2025 Refill [facility] MEDICINE [address] [place] [address] Brittnee Hanna MD Essential hypertension 01/13/2025 Refill [facility] MEDICINE [address] [place] [address] Brittnee Hanna MD Neuropathy 01/10/2025 Orders Only GENERIC EXTERNAL DATA DEPARTMENT Provider, Generic External Data from Last 3 Months Immunizations Immunization Administration Dates Next Due Hep B, adult [...] 90 08/31/2024 3:02 PM EST Temperature 36.2 C (97.1 F) 07/27/2024 2:27 PM EST Respiratory Rate 20 07/27/2024 2:27 PM EST [...] Description 04/26/2025 11:30 AM EDT Office Visit [facility] MEDICINE [address] [place] [address] Brittnee Hanna MD [address] [place], [place] [phone] Health Maintenance Due Date Last Done Comments CT Colonography 1965 FIT DNA/Cologuard 1965 FIT 1965 FOBT 1965 Sigmoidoscopy 1965 Disability Screening 1965 Zoster Vaccines (1 of 2) 2013 RSV Patients and Patients Aged 60 years or older (1 - Risk 60-74 years 1-dose series) 2023 Depression Monitoring 10/08/2024 04/07/2024, 024 SDOH Screening 12/29/2024 12/30/2023 Diabetes: Hemoglobin A1C 04/12/2025 025, 07/27/2024, 04/07/2024, Additional history exists Influenza Vaccine (#1) 2025 , 06/10/2023, 05/16/2022, Additional history exists Mammogram 07/24/2025 07/24/2023, 05/18, 06/14/2018 Alcohol/Substance Use Screening 07/27/2025 07/27/2024 COVID-19 Vaccine ( season) 2025 09/04/2022, 05/16/2022, 05/08/2021 Postponed from 04/17/2024 (Patient Refused) Diabetes: Foot Exam 07/27/2025 07/27/2024, 07/27/2024, 07/27/2024, Additional history exists Diabetes: Urine Protein Screening 09/19/2025 09/19/2024, 07/21/2023, 06/05/2022, Additional history exists Lipid Panel 09/19/2025 09/19/2024, 02/0 10/2024, 04/05/2024, Additional history exists Tobacco Screening [...] Vaccine: 50+ Years Completed 09/22/2022, 06/20/2015, 09/11/2011 HIB Vaccines Aged Out No longer eligi [...] patient's age to complete this topic Meningococcal B Vaccine Aged Out No l onger eligible based on patient's age to complete [...] Result Component 10.8(01/11/20 12:00 AM EDT) No Di Meyers PharmD Procedures Procedure Name Priority Date/Time Associated Diagnosis Comments GLUCOSE, WHOLE BLOOD Routine 02/07/2025 2:58 PM EDT GLUCOSE, WHOLE BLOOD Routine 01/10/2025 3:25 PM EDT HM HEMOGLOBIN A1C Routine 01/10/2025 ALBUMIN, RANDOM URINE W/CREATININE Routine 09/19/2024 10:00 AM EST Type 2 diabetes mellitus with hyperglycemia, with long-term current use of insulin ([facility]) LIPID PANEL, STANDARD Routine 09/19/2024 10:00 AM EST BI MAMMOGRAM SCREENING TOMOSYNTHESIS BILATERAL Routine 07/24/2023 [...] Maintenance Results * (ABNORMAL) Glucose, Whole Blood (02/07/2025 2:58 PM EDT) Only the most recent of2 resultswithin the time period is included. Glucose, Whole Blood 189(H) 60 - 115 mg/dL [facility] Comment:METER #: [id number] Testing performed in the Endocrinology Department [address] , [address], [facility]. 02/07/2025 2:58 PM EDT 02/07/2025 3:03 PM EDT us Generic External Data Provider LAB BLOOD ORDERAB LES Final Result [facility] [address] [place] [address] [phone] * (ABNORMAL) Hemoglobin A1c (01/10/2025) Hemoglobin A1C 10.8(A) 4.0 - 5.7 % Narrative Mini Okeefe - 01/10/2025 See external hospital admission note on us Historical Provider HEALTH MAINTENANCE Final Result * Albumin, Random Urine W/Creatinine (09/19/2024 10:00 AM EST) Creatinine, Urine 161.00 mg/dL [facility] Microalbumin Urine 17.0 mg/L [facility] Microalbum Creatinine Ratio Ur 10.5 <30 ug/mg cr [facility] Comment:Albumin/Creatinine R atio Reference Ranges: Normal: < 30 ug/mg creatinine Microalbuminuria: 30 - 300 ug/mg creatinineClinical Albuminuria: > 300 ug/mg creatinine Urine 09/19/2024 10:0 0 AM EST 09/19/2024 11:51 AM EST us Brittnee Hanna MD LAB URINE ORDERABLES Final Result [facility] [address] [place] [phone] * (ABNORMAL) Lipid Panel, Standard (09/19/2024 10:00 AM EST) Triglycerides 206(H) <150 mg/dL [facility] Comment:Desirable Triglyceri de: less than 150 mg/dLBorderline High Triglyceride 150-199 mg/dLHigh Triglyceride: 200-499 mg/dLVery High Triglyceride: greater than or equal to 5OO mg/dL Cholesterol 141 <200 mg/dL [facility] Comment:Desirable Cholestero l: less than 200 mg/dLBorderline High Cholesterol: 200-239 mg/dLHigh Cholesterol: greater than 239 mg/dL LDL Cholesterol Calculated 65 <100 mg/dL [facility] Comment:Desirable LDL: less than 100 mg/dLNear Optimal/Above Optimal LDL: 110- 129 mg/dLBorderline High LDL: 130-159 mg/dLHigh LDL: 160-189 mg/dLVery High LDL: greater than or equal to 190 mg/dL HDL Cholesterol 35(L) >40 mg/dL [facility] Comment:Desirable HDL: great er than 40 mg/dL Note: This HDL assay may give artificially low results in patients with liver disease. 09/19/2024 10:0 0 AM EST 09/19/2024 11:32 AM EST us Brittnee Hanna MD LAB BLOOD ORDERABLES Final Result [facility] [address] [place] [address] [phone] * BI Mammogram Screening Tomosynthesis Bilateral (07/24/2023 3:39 PM EST) Anatomical Region Laterality Modality Breast Bilateral Mammography 07/24/2023 3:39 PM EST Narrative 08/12/2023 3:43 AM EST [address] [place] [address] Mammography Report Signed Patient: Cynthia Perry MR#: [id number] : 1965 Acct:[id number] Age/Sex: 57 / F ADM Date: 07/24/23 Loc: HO.MAMMO Attending Dr: Brittnee Hanna MD Ordering Physician: Brittnee Hanna MD Results: 1N egative Date of Service: 07/24/23 Follow Up: 1 Year From Orig ina Mammogram Procedure(s): MM tomosynthesis screening BI Accession Number(s): [id number] cc: Brittnee Hanna MD EXAMINATION: MM SCREENING [...] signed by Marleen Peter MD in OV> 08/12/23339 DD/ 38 TD/TT: Track Watchman: Procedure Note Donotuseinterpreter, Image - 08/12/2023 [facility] [address] [place], [place] [address] Mammography Report Signed Patient: Javy Perry#: M [id number] : 1965Acct:[id number] Age/Sex: 57 / FADM Date: 07/24/23 Loc: ESTRELLITA Attending Dr: Brittnee Hanna MD Ordering Physician: Brittnee Hanna MDResults: 1N egative Date of Service: 07/24/23Follow Up: 1 Year From Orig inal Mammogram Procedure(s): MM tomosynthesis screening BI Accession Number(s): [id number] cc: Brittnee Hanna MD EXAMINATION: MM SCREENING [...] signed by Marleen Peter MD in OV> 08/12/23339 DD/ 38 TD/TT: Track Watchman: Brittnee Hanna MD [facility] BI PROCEDURES Edited R esult - Final * THINPREP TIS PAP AND HPV mRNA E6/E7, CT/NG, TRICH (05/16/2022 9:44 AM EDT) Chlamydia trachomatis RNA, TMA, Urogenital NOT DETECTED NOT DETECTED CONVERTED [facility] Clinical Information: None given CONVERTED [facility] COMMENT SEE COMMENT CONVERTE D [employer] Comment: The analytical performance characteristics of this assay, when used to test SurePath(TM) specimens have been determined by [employer]. The modifications have not been cleared or approved by the FDA. This assay has been validated pursuant to the CLIA regulations and is used for clinical purposes. For additional information, please refer to [email or web address].ParcelGenie/faq/ZBB054 (This link is being provided for information/ educational purposes only.) COMMENT SEE COMMENT CONVERTE D [employer] Comment: EXPLANATORY NOTE: The Pap is a screening test for cervical cancer. It is not a diagnostic test and is subject to false negative and false positive results. It is most reliable when a satisfactory sample, regularly obtained, is submitted with relevant clinical findings and history, and when the Pap result is evaluated along with historic and current clinical information. COMMENT: This Pap test has been evaluated with computer assisted technology. CONVERTED [employer] Pet Store Merchandiser: SEE COMMENT CONVERTED Split[employer] Comment: RXB, CT(ASCP) CT screening location: [place] [address] HPV nRNA E6/E7 Not Detected Not Detected CONVERTED [employer] Comment: Methodology: Wwe Wrestler-Mediated Amplification This assay detects E6/E7 viral messenger RNA (mRNA) from 14 high-risk HPV types (16,18,31,33,35,39,45,51,52,56,58,59,66,68). Cervical sources are required for HPV testing. If a vaginal source from a patient who has had a total hysterectomy with removal of cervix was submitted, please contact the testing laboratory for alternative testing options. For additional information, please refer to http://SlapVid.ParcelGenie/faq/BMI224s4 (This link if provided for information/ educational [...] of this assay have been determined by [employer]. The modifications have not been cleared or approved by the FDA. This assay has been validated pursuant to the CLIA regulations and is used for clinical purposes. For additional information, please refer to http://education.ParcelGenie/ faq/Trichomonastma (This link is being provided for information/ educational purposes only.) 05/16/2022 9:44 AM EDT Brittnee Hanna MD [...] Blood Venous blood specimen / Unknown 02/22/2014 us Historical Provider LAB BLOOD ORDERABLES Emelia l Result from Last 3 Months or Most Recently Relevant to Health Maintenance Insurance [facility] C3 Advance Directives Documents on File Type Date Recorded Patient Media Clerk Expl anation Advance Directives and Living Will 04/07/2024 Health Care Proxy 04/07/24 Care Teams Aerial Photograph Interpreter Relationship Specialty Start Date End Date Prowers, MD Brittnee [address] [place] [address] PCP - General Family Medicine 08/17/18 Martina Mancia OD [address] [place] [address] Optometry 07/26/24 Allyson Armando [address] [place] [address] 3rd [place] [address] Cardiology 01/03/25 Donna Sutton Paint SpecialistTraffic Observer 05/06/24 Bety Benson NP [facility] Endocrinology Endocrinology 11/04/24
--- OUTSIDE RECORDS SUMMARY | 2025-04-11 15:25 | XMS_ITS | Encounter Summary ---
Author Organization [employer] Address [address] [place] [address] 7t [place] [address] Care Team Providers Care Case Assembler Name Role Phone Brittnee Hanna MD Primary Care Provider +1- [phone] Di Hyde PharmD Unavailable Martina Mancia OD Unavailable Prabha, Allyson Unavailable Encounter Details Date Type Department Care Team ([facility] Contact Info) Description 08/25/2022 Orders Only [facility] CHC MED & PEDS [address] [place], [place] [phone] Jeana Vital LPN Social History Tobacco Use [...] Encounters Date Type Department Care Team (Late Contact Info) Description 04/26/2025 11:30 AM EDT Office Visit [facility] MEDICINE [address] [place], [place] [phone] Brittnee Hanna MD [address] [place], [place] [phone] documented as of this encounter Procedures Procedure Name Priority Date/Time Associated Diagnosis Comments HEPATIC FUNCTION PANEL Routine 07/21/2023 12:47 PM EST documented in this encounter Results * (ABNORMAL) Hepatic Function Panel (07/21/2023 12:47 PM EST) Bilirubin, Total 0.3 0.0 - 1.0 mg/dL [facility] Bilirubin, Direct 0.1 0.0 - 0.5 mg/dL [facility] Aspartate Amino Transferase 18 5 - 31 U/L [facility] Alanine Aminotransferase 33(H) 0 - 31 U/L [facility] Total Protein 7.4 6.5 - 8.0 g/dL [facility] Albumin Level 4.3 3.5 - 5.0 g/dL [facility] Alkaline Phosphatase 142(H) 39 - 117 U/L [facility] 07/21/2023 12:4 7 PM EST 07/21/2023 3:59 PM EST Brittnee Hanna MD LAB BLOOD ORDERABLES Final Result Performing Organization Address City/State/[facility] Co de Phone Number [facility] [address] [place] [address] [phone] documented in this encounter Visit Diagnoses Not on filedocumented in this encounter Care Teams Case Assembler Relationship Specialty Start Date End Date Brittnee Hanna MD [address] [place] [address] PCP - General Family Medicine 08/17/18 Di Hyde PharmD [address] [place] [address] Pharmacist Internal Medicine 01/06/23 08/31/24 Martina Mancia OD [address] [place] [address] Optometry 07/26/24 Allyson Armando [address] 3rd [place] [address] Cardiology 01/03/25 Donna Sutton TeletypesetterDemonstrator Sales 05/06/24 Bety Benson NP [facility] Endocrinology Endocrinology 11/04/24 documented as of this encounter
--- OUTSIDE RECORDS SUMMARY | 2025-04-11 15:25 | XMS_ITS | Encounter Summary ---
Author Organization [employer] Address [address] [facility] 7t [place] [address] Care Team Providers Care Coating Inspector Name Role Phone Brittnee Hanna MD Primary Care Provider +1- [phone] Di Hyde PharmD Unavailable Martina Mancia OD Unavailable Adolfo Armandon Unavailable Reason for Visit * Reason Comments Med Refill Encounter Details Date Type Department Care Team ([facility] [place] [facility] Contact Info) Description 05/12/2023 Refill [facility] CHC MED & PEDS [address] [place], [place] [phone] Cipriano Campa MD [address] [place] [address] Type 2 diabetes mellitus with other circulatory complication, with long-term current use of insulin ([facility]) Social History Tobacco Use Types [...] Encounters Date Type Department Care Team ([facility] Contact Info) Description 04/26/2025 11:30 AM EDT Office Visit [facility] MEDICINE [address] [place] [address] Brittnee Hanna MD [address] [place] [address] documented as of this encounter Goals Goal Patient Goal Type Associated Problems Recent Progress Patient-Stated? Author Hemoglobin A1c < 7 Result Component 10.8( 5 12:00 AM EDT) No Di Hyde, PharmD documented as of this encounter Visit Diagnoses Diagnosis Type 2 diabetes mellitus with other circulatory complication, with long-term current use of insulin ([facility]) documented in this encounter Additional Health Concerns Assessment Noted Time PHQ-9 Depression Total Score: 023 9:47 AM EDT documented as of this encounter Care Teams Coating Inspector Relationship Specialty Start Date End Date Brittnee Hanna MD [address] [place] [address] PCP - General Family Medicine 08/17/18 Di Hyde, PharmD [address] [place] [address] Pharmacist Internal Medicine 01/06/23 08/31/24 Martina Mancia OD [address] [place] [address] Optometry 07/26/24 Allyson Armando [address] [place] [address] 3rd [place] [address] Cardiology 01/03/25 Donna Sutton Sole RounderMetal Work Duct Installer 05/06/24 Bety Benson NP [facility] Endocrinology Endocrinology 11/04/24 documented as of this encounter
--- OUTSIDE RECORDS SUMMARY | 2025-04-11 15:25 | XMS_ITS | Encounter Summary ---
Author Organization [employer] Address 75 [facility] 7t [place] [address] Care Team Providers Care Contracts Paralegal Name Role Phone Brittnee Hanna MD Primary Care Provider +1- [phone] Di Hyde PharmD Unavailable Martina Mancia OD Unavailable [phone] Adolfo Armandon Unavailable Reason for Visit * Reason Comments Med Refill Encounter Details Date Type Department Care Team ([facility] st Contact Info) Description 07/21/2023 Refill [facility] MED & PEDS [address] [place], [place] [phone] Brittnee Hanna MD [address] [place] [address] Mild intermittent asthma without complication Social History [...] Description 04/26/2025 11:30 AM EDT Office Visit [facility] MEDICINE [address] [place] [address] Brittnee Hanna MD [address] [place] [address] documented as of this encounter Goals Goal Patient Goal Type Associated Problems Recent Progress Patient-Stated? Author Hemoglobin A1c < 7 Result Component 10.8( 12:00 AM EDT) No Di Hyde PharmD documented as of this encounter Visit Diagnoses Diagnosis Mild intermittent asthma without complication documented in this encounter Additional Health Concerns Assessment Noted Time PHQ-9 Depression Total Score: 21 023 9:47 AM EDT documented as of this encounter Care Teams Contracts Paralegal Relationship Specialty Start Date End Date Brittnee Hanna MD [address] [place] [phone] PCP - General Family Medicine 08/17/18 Di Hyde, ShabbirD [address] [place] [address] Pharmacist Internal Medicine 01/06/23 08/31/24 Martina Mancia OD [address] [place] [address] Optometry 07/26/24 Allyson Armando [address] [place] [address] 3rd [place] [address] Cardiology 01/03/25 Donna Sutton Medical Insurance Claims ProcessorDocument Photographer 05/06/24 Bety Benson SANDING MACHINE OPERATOR OR TENDER [facility] Endocrinology Endocrinology 11/04/24 documented as of this encounter
--- OUTSIDE RECORDS SUMMARY | 2025-04-11 15:25 | XMS_ITS | Encounter Summary ---
Author Organization [employer] Address [address] [place] [address] 7t [place] [address] Care Team Providers Care Social Work Coordinator Name Role Phone Brittnee Hanna MD Primary Care Provider +1- [phone] Di Hyde PharmD Unavailable Martina Mancia OD Unavailable [phone] Adolfo Armandon Unavailable Reason for Visit * Reason Onset Date Comments triage 07/21/2022 Encounter Details Date Type Department Care Team ([facility] st Contact Info) Description 07/21/2022 Telephone [facility] MEDICINE [address] [place], [place] [phone] Brittnee Hanna MD [address] [place] [address] triage Social History Tobacco Use Types Packs/Day [...] and depression since losing MH services with [facility]. Per pt has not had any follow up with therapist or psychiatrist. Was supposed to have an appt on 06/15 but when called to r/s was never answered. Has been without meds. Per pt denies any SI/HI. Just increased anxiety. Pt advised that no appts in clinic tomorrow. Pt to come into [facility] tomorrow to speak with on site [facility] clinician and see if [facility] provider (advised cannot guarantee Dr. Hanna) can [...] accepted this outcome Please contact pt at [phone] speaks South African documented in this encounter Plan of Treatment Upcoming Encounters Date Type Department Care Team (Late st Contact Info) Description 04/26/2025 11:30 AM EDT Office Visit [facility] MEDICINE [address] [place] [address] Brittnee Hanna MD [address] [place] [address] documented as of this encounter Visit Diagnoses Not on filedocumented in this encounter Care Teams Social Work Coordinator Relationship Specialty Start Date End Date Brittnee Hanna MD [address] [place] [address] PCP - General Family Medicine 08/17/18 Di Hyde PharmD [address] [place] [address] Pharmacist Internal Medicine 01/06/23 08/31/24 Martina Mancia OD [address] [place] [address] Optometry 07/26/24 Allyson Armando [address] [place] [address] 3rd [place] [address] Cardiology 01/03/25 Donna Sutton Card BoxerDoll Wig Maker 05/06/24 Bety Benson NP [facility] Endocrinology Endocrinology 11/04/24 documented as of this encounter
--- OUTSIDE RECORDS SUMMARY | 2025-04-11 15:25 | XMS_ITS | Encounter Summary ---
Author Organization [employer] Address [address] [facility] 7t [place] [address] Care Team Providers Care Monorail Crane Operator Name Role Phone Brittnee Hanna MD Primary Care Provider +1- [phone] Di Hyde PharmD Unavailable Martina Mancia OD Unavailable Allyson Armando Unavailable Reason for Visit * Reason Onset Date Comments Appointment Request 07/18/2024 Encounter Details Date Type Department Care Team ([facility] st Contact Info) Description 07/18/2024 Telephone [facility] MEDICINE [address] [place], [place] [phone] Brittnee Hanna MD [address] [place] [address] Appointment Request Social History Tobacco Use Types [...] Description 04/26/2025 11:30 AM EDT Office Visit [facility] MEDICINE [address] [place] [address] Brittnee Hanna MD [address] [place] [address] documented as of this encounter Goals Goal Patient Goal Type Associated Problems Recent Progress Patient-Stated? Author Blood Pressure < 140/90 Blood Pressure 112/58(2024 3:02 PM EST) No Piers-Gambl e, Di, PharmD Hemoglobin A1c < 7 Result Component 10.8(01/11/20 12:00 AM EDT) No Piers-Gambl e, Di, PharmD documented as of this encounter Visit Diagnoses Not on filedocumented in this encounter Additional Health Concerns Assessment Noted Time PHQ-9 Depression Total Score: 15 024 10:35 AM EDT documented as of this encounter Care Teams Monorail Crane Operator Relationship Specialty Start Date End Date Brittnee Hanna MD [address] [place] [address] PCP - General Family Medicine 08/17/18 Di Hyde, ShabbirD [address] [place] [address] Pharmacist Internal Medicine 01/06/23 08/31/24 Martina Mancia OD [address] [place] [address] Optometry 07/26/[address] 3rd [place] [address] Cardiology 01/03/25 Donna Sutton Tdp Displays AnalystLamp Stack Developer 05/06/24 Bety Benson NP [facility] Endocrinology Endocrinology 11/04/24 documented as of this encounter
--- OUTSIDE RECORDS SUMMARY | 2025-04-11 15:25 | XMS_ITS | Encounter Summary ---
Author Organization [employer] Address [address] [facility] 7t [place] [address] Care Team Providers Care Broom Machine Operator Name Role Phone Brittnee Hanna MD Primary Care Provider [phone]- [phone] Di Hyde PharmD Unavailable Martina Mancia OD Unavailable Prabha, Allyson Unavailable Encounter Details Date Type Department Care Team (Late st Contact Info) Description 04/27/2024 Abstract [facility] MEDICINE [address] [place] [address] Brittnee Hanna MD [address] [place], [place] [phone] Social History Tobacco Use Types Packs/Day Years [...] 11:30 AM EDT Office Visit [facility] MEDICINE [address] [place] [address] Brittnee Hanna MD [address] [place] [address] documented as of this encounter Goals Goal Patient Goal Type Associated Problems Recent Progress Patient-Stated? Author Blood Pressure < 140/90 Blood Pressure 112/58(2024 3:02 PM EST) No Di Myeers, PharmD Hemoglobin A1c < 7 Result Component 10.8(01/11/20 25 12:00 AM EDT) No Di Meyers, PharmD documented as of this encounter Visit Diagnoses Not on filedocumented in this encounter Additional Health Concerns Assessment Noted Time PHQ-9 Depression Total Score: 15 024 10:35 AM EDT documented as of this encounter Care Teams Broom Machine Operator Relationship Specialty Start Date End Date Brittnee Hanna MD [address] [place] [address] PCP - General Family Medicine 08/17/18 Di Hyde, PharmD [address] [place] [address] Pharmacist Internal Medicine 01/06/23 08/31/24 Martina Mancia OD [address] [place] [address] Optometry 07/26/24 Allyson Armando [address] [place] [address] 3rd [place] [address] Cardiology 01/03/25 Donna Sutton Locomotive OperatorSteam Service Inspector 05/06/24 Bety Benson, AGUSTO C Endocrinology Endocrinology 11/04/24 documented as of this encounter
--- OUTSIDE RECORDS SUMMARY | 2025-04-11 15:25 | XMS_ITS | Encounter Summary ---
Author Organization [email or web address] Address [address] [facility] [address] 7t [place] [address] Care Team Providers Care Humane Officer Name Role Phone Brittnee Hanna MD Primary Care Provider +1- [phone] Di Hyde PharmD Unavailable Martina Mancia OD Unavailable Prabha, Allyson Unavailable Encounter Details Date Type Department Care Team (Late st Contact Info) Description 05/24/2024 Orders Only [facility] [address] [place] [address] Brittnee Hanna MD [address] [place], [place] [phone] Social History Tobacco Use Types Packs/Day Years [...] Description 04/26/2025 11:30 AM EDT Office Visit [facility] MEDICINE [address] [place] [address] Brittnee Hanna MD [address] [place] [address] documented as of this encounter Goals Goal [...] documented as of this encounter Care Teams Humane Officer Relationship Specialty Start Date End Date Brittnee Hanna MD [address] [place] [address] PCP - General Family Medicine 08/17/18 Di Hyde, PharmD [address] [place] [address] Pharmacist Internal Medicine 01/06/23 08/31/24 Martina Mancia OD [address] [place] [address] Optometry 07/26/[address] 3rd [place] [address] Cardiology 01/03/25 Donna Sutton Lead PressmanCentral Supply Manager 05/06/24 Bety Benson NP [facility] Endocrinology Endocrinology 11/04/24 documented as of this encounter
--- OUTSIDE RECORDS SUMMARY | 2025-04-11 15:25 | XMS_ITS | Encounter Summary ---
Author Organization [employer] Address [address] [facility] 7t [place] [address] Care Team Providers Care Pipe Blanks Cut Off Saw Operator Name Role Phone Brittnee Hanna MD Primary Care Provider +1- [phone] Di Hyde PharmD Unavailable Martina Mancia OD Unavailable [phone] Adolfo Armandon Unavailable Encounter Details Date Type Department Care Team ([facility] Contact Info) Description 12/17/2022 Abstract [facility] [address] [place] [address] Brittnee Hanna MD [address] [place] [address] [phone] Social History Tobacco Use Types Packs/Day Years [...] Upcoming Encounters Date Type Department Care Team ([facility] Contact Info) Description 04/26/2025 11:30 AM EDT Office Visit [facility] [address] [place] [address] Brittnee Hanna MD [address] [place] [address] documented as of this encounter Visit Diagnoses Not on filedocumented in this encounter Additional Health Concerns Assessment Noted Time PHQ-9 Depression Total Score: 0 09/22/19 23 9:47 AM EST documented as of this encounter Care Teams Pipe Blanks Cut Off Saw Operator Relationship Specialty Start Date End Date Brittnee Hanna MD [address] [place] [address] PCP - General Family Medicine 08/17/18 Di Hyde, ShabbirD [address] [place] [address] Pharmacist Internal Medicine 01/06/23 08/31/24 Martina Mancia OD [address] [place] [address] Optometry 07/26/24 Allyson Armando [address] [place] [address] [address] [place] [address] Cardiology 01/03/25 Donna Sutton Lockstitch Waistband SetterMachine Plate Stacker 05/06/24 Bety Benson, AGUSTO [facility] Endocrinology Endocrinology 11/04/24 documented as of this encounter
== END 2025-04-11 15:01 | disposition home or self-care (01) ==
LOC: HO.ENCR 14:25
PROVIDERS: PCP Physician Assistant Medical; Visit Provider Physician Assistant Medical
DX: E11.42 Type 2 diabetes mellitus with diabetic polyneuropathy (principal); Z79.4 Long term (current) use of insulin

== ENCOUNTER → 2025-04-11 14:24 | Outpatient (BNVA) | payer MEDICAID, SELFPAY | PROVIDERS: PCP Physician Assistant Medical; Visit Provider Physician Assistant Medical | DX: E11.42 Type 2 diabetes mellitus with diabetic polyneuropathy (principal); Z79.4 Long term (current) use of insulin | CPT/HCPCS: 82947; 83036; 99212 ==

== ENCOUNTER 2025-04-26 12:10 | Outpatient (REF) | payer MEDICAID, SELFPAY ==
--- OUTSIDE RECORDS SUMMARY | 2025-04-26 11:30 | XMS_ITS | Encounter Summary ---
Author Organization [employer] Address [address] [facility] [address] [place] [address] Care Team Providers Care Molecular Pathologist Name Role Phone Brittnee Hanna MD Primary Care Provider [phone] Tan Mancian OD Unavailable [phone] Adolfo Armandon Unavailable Reason for Visit * Reason Comments Follow-up Encounter Details Date Type Department Care Team ([facility] st Contact Info) Description 04/26/2025 11:30 AM EDT Office Visit [facility] [address] [place] [address] Brittnee Hanna MD [address] [place] [address] Type 2 diabetes mellitus with hyperglycemia, with long-term current use of insulin (CMS/HCC) (Primary Dx); Unintentional weight loss; Anemia, unspecified type; Asthma-COPD overlap syndrome (CMS/HCC); Chronic obstructive pulmonary disease, unspecified COPD type (CMS/HCC); Mild intermittent asthma without complication; Seasonal allergies Social History Tobacco Use Types Packs/Day Years Used Date Smoking Tobacco: Former Cigarettes Passive Smoke Exposure: Current Smokeless Tobacco: Never Depression Answer Date Recorded Patient Health Questionnaire-9 Score 17 04/26/2025 Patient Health Questionnaire-9 Score 17 04/26/2025 Last PHQ-9: Questionnaire Data Not on file 0 04/26/2025 Housing Stability Answer Date Recorded What is your housing situation today? I have francisco jones 04/26/[address] you li ve. Do you have problems with any of the following? None of the above 04/26/2025 Food Insecurity Answer Date Recorded Within the past 12 months, y ou worried that your food would run out before you got money to buy more: Never True 04/26/2025 Within the past 12 months,th e food you bought just didn't last and you didn't have enough money to get more: Never True 05/2025 Transportation Answer Date Recorded In the past 12 months, has l ack of transportation kept you from medical appts, meetings, work or from getting things needed for daily living? No 04/26/2025 Utilities Answer Date Recorded In the past 12 months, has t he [employer], gas, oil or water company threatened to shut off services in your home? No 04/26/2025 Depression Answer Date Recorded Patient Health Questionnaire-2 Score 5 04/26/2025 Internet Access Answer Date Recorded Internet Access Q1 No 04/26/2025 Internet Access Q2 I do not want or need it 04/17 Comments Unknown Sex and Gender Information Value Date Recorded Sex Assigned at Female 06/16/2022 10:18 AM EDT Legal Sex Female 10:18 AM EDT Gender Identity Female 06/16/2022 10:18 AM EDT Sexual Orientation Straight 06/16/2022 10 :18 AM EDT documented as of this encounter Last Filed Vital Signs Vital Sign Reading Time Taken Comments Blood Pressure 140/90 04/26/2025 11:38 AM EDT Pulse 90 04/26/2025 11:38 AM EDT Temperature 37 C (98.6 F) 04/26/2025 11:38 AM EDT Respiratory Rate 20 04/26/2025 11:38 AM EDT Oxygen Saturation 98% 04/26/2025 11:38 AM EDT Inhaled Oxygen Concentration - - Weight 55.9 kg (123 lb 3.2 oz) 04/26/2025 11:38 AM EDT Height 157.5 cm (5' 2 ) 04/26/2025 11:38 AM EDT Body Mass Index 22.53 04/26/2025 11:38 AM EDT documented in this encounter Functional Status * Over the past 2 weeks, how often have you been bothered by any of the following problems? Question Answer Date of Assessment Author Patient Health Questionnaire -2 Score 5 04/26/2025 11:40 AM EDT Juliann Jeffries MA * Little interest or pleasure in doing things Answer Date of Assessment Author Nearly every day 04/26/2025 11:40 AM EDJuliann Odell MA * Feeling down, depressed, or hopeless Answer Date of Assessment Author More than half the days 04/26/2025 11:40 AM EDJuliann Odell MA * Trouble falling or staying asleep, or sleeping too much Answer Date of Assessment Author Nearly every day 04/26/2025 11:40 AM Juliann Ford MA * Feeling tired or having little energy Answer Date of Assessment Author Nearly every day 04/26/2025 11:40 AM EDJuliann Odell MA * Poor appetite or overeating Answer Date of Assessment Author Nearly every day 04/26/2025 11:40 AM Juliann Ford MA * Feeling bad about yourself - or that you are a failure or have let yourself or your family down Answer Date of Assessment Author Not at all 04/26/2025 11:40 AM Juliann Ford MA * Trouble concentrating on things, such as reading the newspaper or watching television Answer Date of Assessment Author Nearly every day 04/26/2025 11:40 AM Juliann Ford MA * Moving or speaking so slowly that other people could have noticed? Or the opposite - being so fidgety or restless that you have been moving around a lot more than usual. Answer Date of Assessment Author Not at all 04/26/2025 11:40 AM Juliann Ford MA * Thoughts that you would be better off or hurting yourself in some way Answer Date of Assessment Author Not at all 04/26/2025 11:40 AM Juliann Ford MA * Patient Health Questionnaire-9 Score Answer Date of Assessment Author 17 04/26/2025 11:40 AM Juliann Ford MA * How difficult have these problems made it for you to do your work, take care of things at home, or get along with other people? Answer Date of Assessment Author Somewhat difficult 04/26/2025 11:40 AM Juliann Chavez MA * Over the last 2 weeks, how often have you been bothered by any of the following problems? Question Answer Date of Assessment Author Feeling nervous, anxious, or on edge 2 04/26/2025 11:41 AM EDT Juliann Jeffries MA Not being able to stop or co ntrol worrying 2 04/26/2025 11:41 AM EDT Juliann Jeffries MA Worrying too much about diff erent things 2 04/26/2025 11:41 AM EDT Juliann Jeffries MA Trouble relaxing 0 04/26/2025 11:41 AM EDT Juliann Jeffries MA Being so restless that it is hard to sit still 0 04/26/2025 11:41 AM EDT Juliann Jeffries MA Becoming easily annoyed or irritable 0 04/26/2025 11:41 AM EDT Juliann Jeffries MA Feeling afraid as if somethi ng awful might happen 0 04/26/2025 11:41 AM EDT Juliann Jeffries MA JEREMIAS-7 Total Score 6 04/26/2025 11:41 AM EDT Juliann Jeffries MA documented as of this encounter Progress Notes * Brittnee Hanna MD - 04/26/2025 11:30 AM EDT Subjective Patient ID: Cynthia Okeefe is a 59 y.o. female with past medical history of asthma, type 2 diabetes, hypertension, and CAD who presents for follow-up weight loss and type 2 diabetes management. Pt reports her vertigo has been worse. She has been getting dizzy spells. Denies headaches, numbness or weakness in extremities. She notes it has been sore at the injection cite where she gives herself insulin. Pt says she and her [employer]RAVER are going to evaluate for a plan of action. Denies any fevers, induration around the cite or discharge from the cite. Just reports soreness. Review of Systems Constitutional: Negative for fatigue, fever and unexpected weight change. Respiratory: Negative for shortness of breath. Cardiovascular: Negative for chest pain. Gastrointestinal: Negative for abdominal pain. Genitourinary: Negative for difficulty urinating and pelvic pain. Musculoskeletal: Negative for back pain. Objective Visit Vitals BP (!) 140/90 (BP Location: Left arm, Patient Position: Sitting, BP Cuff Size: Adult) Pulse 90 Temp 98.6 ??F (37 ??C) (Oral) Resp 20 Body mass index is 22.53 kg/m??. Physical Exam Constitutional: Appearance: Normal appearance. Cardiovascular: Rate and Rhythm: Normal rate and regular rhythm. Heart sounds: Normal heart sounds. Pulmonary: Effort: Pulmonary effort is normal. Breath sounds: Normal breath sounds. Abdominal: General: Abdomen is flat. Palpations: Abdomen is soft. Tenderness: There is no abdominal tenderness. Musculoskeletal: Cervical back: Normal range of motion. Neurological: General: No focal deficit present. Mental Status: She is alert. Gait: Gait abnormal (ataxic). Psychiatric: Behavior: Behavior normal. Assessment & Plan Type 2 diabetes mellitus with hyperglycemia, with long-term current use of insulin ([facility]) Diabetes is not controlled. Rereferred to endo and restablished 10/2024 at [facility] . Note from 02/07/25 reviewed. On Freestyle Ric 3 Lab Results Component Value Date HGBA1C 9.9 (A) 04/26/2025 HGBA1C 10.8 (A) 01/10/2025 HGBA1C 11.9 (A) 07/27/2024 Lab Results Component Value Date MICROALBUR 17.0 [...] 1.5 mg weekly 02/07/25 -during endo visit 6/24/25 We started the discussion about adding an SGLT2 once her GMI comes down a bit. Currently it is at alevel where she could be at increased risk of UTI and yeast infections. Orders: POCT Hgb A1c POCT Glucose Albumin, Random Urine W/Creatinine; Future Hepatic Function Panel; Future Lipid Panel, Standard; Future Hemoglobin A1c; Future Basic Metabolic Panel; Future Unintentional weight loss Pt with unintentional weight [...] colonoscopy since she has no abd pain. Weight has been stable since jul 2024. Gained 3 lbs since Aug 2024. Anemia, unspecified type Lab Results Component Value Date HGB 12.1 09/19/2024 HGB 11.7 (L) 06/18/2024 HGB 12.6 06/17/2024 HGB 12.1 03/19/2024 HGB 12.9 12/18/2022 HGB 12.2 06/05/2022 HGB 11.7 02/10/2020 HGB 11.7 02/10/2020 HGB 11.7 02/10/2020 HEMATOCRIT 38.1 12/18/2022 HEMATOCRIT 37.1 06/05/2022 HEMATOCRIT 34.4 (L) 02/10/2020 HEMATOCRIT 34.4 (L) 02/10/2020 HEMATOCRIT 34.4 (L) 02/10/2020 On 01/05 hemoglobin went from 11.7, guaiac was positive. She recieved a transfer. Aspirin and Plavixheld. She under went endoscopy but was unable to have colonoscopy due to poor prep. Endoscopy revealed gastritis. Repeat Hgb normal 12.2 05/2022. Ferritin low at 13, start iron qod -Pantoprazole 40mg BID for 3 months. -Call GI for repeat colonoscopy. -Referred to GI 05/16/22. -ordered iron panel 04/26/25 Orders: CBC auto differential; Future Ferritin; Future TSH with Reflex to Free T4; Future Iron And Total Iron Binding Capacity; Future Vitamin B12 (Cobalamin) and Folate Panel, Serum; Future Asthma-COPD overlap syndrome (CMS/HCC) -On Advair and Spiriva with questionable compliance. Uses her albuterol regularly. Orders: tiotropium (Spiriva HandiHaler) 18 MCG inhalation capsule; Place 1 capsule (18 mcg) into inhaler and inhale in the morning. albuterol (Ventolin HFA) 108 (90 Base) MCG/ACT inhaler; INHALE 2 PUFFS BY MOUTH EVERY 4 HOURS NEEDED FOR WHEEZING OR SHORTNESS OF BREATH Fluticasone-Salmeterol (Advair Diskus) 250-50 MCG/ACT aerosol powder ; Inhale 250 mg 2 times daily. Chronic obstructive pulmonary disease, unspecified COPD type (CMS/HCC) -On Advair and Spiriva with questionable compliance. Uses her albuterol regularly. Mild intermittent asthma without complication -On Advair and Spiriva with questionable compliance. Uses her albuterol regularly. Seasonal allergies -continue Fluticasone PRN. Orders: fluticasone (Flonase) 50 MCG/ACT nasal spray; 1 spray each nostril daily prn allergies Shake gently. Before first use, prime pump. After use, clean tip and replace cap. Follow up in about 5 months (around 09/26/2025) for physical. Phyllis Sun, am serving as a scribe to document services personally performed by Dr. Jacobs, based on the patient's response to questions by provider and providers statements to me. documented in this encounter Miscellaneous Notes * Assessment & Plan Note - Brittnee Hanna MD - 04/26/2025 11:30 AM EDT Associated Problem(s): Unintentional weight loss Pt with [...] colonoscopy since she has no abd pain. Weight has been stable since jul 2024. Gained 3 lbs since Aug 2024. * Assessment & Plan Note - Brittnee Hanna MD - 04/26/2025 11:30 AM EDT Associated Problem(s): Type 2 diabetes mellitus with hyperglycemia, with long- term current use of insulin ([facility]) Diabetes is not controlled. Rereferred to [facility] and restablished 10/2024 at [facility] . Note from 02/07/25 reviewed. On Freestyle Ric 3 Lab Results Component Value Date HGBA1C 9.9 (A) 04/26/2025 HGBA1C 10.8 (A) 01/10/2025 HGBA1C 11.9 (A) 07/27/2024 Lab Results Component Value Date MICROALBUR 17.0 [...] down a bit. Currently it is at alevel where she could be at increased risk of UTI and yeast infections. Orders: POCT Hgb A1c POCT Glucose Albumin, Random Urine W/Creatinine; Future Hepatic Function Panel; Future Lipid Panel, Standard; Future Hemoglobin A1c; Future Basic Metabolic Panel; Future * Assessment & Plan Note - Brittnee Hanna MD - 04/26/2025 11:30 AM EDT Associated Problem(s): Asthma-COPD overlap syndrome (CMS/HCC) -On Advair and Spiriva with questionable compliance. Uses her albuterol regularly. Orders: tiotropium (Spiriva HandiHaler) 18 MCG inhalation capsule; Place 1 capsule (18 mcg) into inhaler and inhale in the morning. albuterol (Ventolin HFA) 108 (90 Base) MCG/ACT inhaler; INHALE 2 PUFFS BY MOUTH EVERY 4 HOURS NEEDED FOR WHEEZING OR SHORTNESS OF BREATH Fluticasone-Salmeterol (Advair Diskus) 250-50 MCG/ACT aerosol powder ; Inhale 250 mg 2 times daily. * Assessment & Plan Note - Brittnee Hanna MD - 04/26/2025 11:30 AM EDT Associated Problem(s): Anemia Lab Results Component Value Date HGB 12.1 09/19/2024 HGB 11.7 (L) 06/18/2024 HGB 12.6 06/17/2024 HGB 12.1 03/19/2024 HGB 12.9 12/18/2022 HGB 12.2 06/05/2022 HGB 11.7 02/10/2020 HGB 11.7 02/10/2020 HGB 11.7 02/10/2020 HEMATOCRIT 38.1 12/18/2022 HEMATOCRIT 37.1 06/05/2022 HEMATOCRIT 34.4 (L) 02/10/2020 HEMATOCRIT 34.4 (L) 02/10/2020 HEMATOCRIT 34.4 (L) 02/10/2020 On 01/05 hemoglobin went from 11.7, guaiac was positive. She recieved a transfer. Aspirin and Plavixheld. She under went endoscopy but was unable to have colonoscopy due to poor prep. Endoscopy revealed gastritis. Repeat Hgb normal 12.2 05/2022. Ferritin low at 13, start iron qod -Pantoprazole 40mg BID for 3 months. -Call GI for repeat colonoscopy. -Referred to GI 05/16/22. -ordered iron panel 04/26/25 Orders: CBC auto differential; Future Ferritin; Future TSH with Reflex to Free T4; Future Iron And Total Iron Binding Capacity; Future Vitamin B12 (Cobalamin) and Folate Panel, Serum; Future documented in this encounter Plan of Treatment Not on file documented as of this encounter Goals Goal Patient Goal Type Associated Problems Recent Progress Patient-Stated? Author Blood Pressure < 140/90 Blood Pressure 140/90(2024 11:38 AM EDT) No Di Meyers PharmD Hemoglobin A1c < 7 Result Component 9.4( 12:19 PM EDT) No Di Meyers PharmD documented as of this encounter Procedures Procedure Name Priority Date/Time Associated Diagnosis Comments VITAMIN B12/FOLATE, SERUM PANEL Routine 04/26/2025 12:19 PM EDT Anemia, unspecified type TSH W/REFLEX TO FT4 Routine 04/26/2025 1 2:19 PM EDT Anemia, unspecified type ALBUMIN, RANDOM URINE W/CREATININE Routine 04/26/2025 12:19 PM EDT Type 2 diabetes mellitus with hyperglycemia, with long-term current use of insulin ([facility]) CBC WITH AUTO DIFFERENTIAL Routine 04/26/2025 12:19 PM EDT Anemia, unspecified type IRON AND TOTAL IRON BINDING CAPACITY Routine 04/26/2025 12:19 PM EDT Anemia, unspecified type HEMOGLOBIN A1C Routine 04/26/2025 12:19 PM EDT Type 2 diabetes mellitus with hyperglycemia, with long-term current use of insulin ([facility]) FERRITIN Routine 04/26/2025 12:19 PM EDT Anemia, unspecified type HEPATIC FUNCTION PANEL Routine 04/26/2025 12:19 PM EDT Type 2 diabetes mellitus with hyperglycemia, with long-term current use of insulin ([facility]) LIPID PANEL, STANDARD Routine 04/26/2025 12:19 PM EDT Type 2 diabetes mellitus with hyperglycemia, with long-term current use of insulin ([facility]) BASIC METABOLIC PANEL Routine 04/26/2025 12:19 PM EDT Type 2 diabetes mellitus with hyperglycemia, with long-term current use of insulin ([facility]) POCT GLYCATED HEMOGLOBIN, TOTAL Routine 04/26/2025 11:43 AM EDT Type 2 diabetes mellitus with hyperglycemia, with long-term current use of insulin ([facility]) POCT GLUCOSE Routine 04/26/2025 11:41 AM EDT Type 2 diabetes mellitus with hyperglycemia, with long-term current use of insulin ([facility]) documented in this encounter Results * Vitamin B12 (Cobalamin) and Folate Panel, Serum (04/26/2025 12:19 PM EDT) [facility] Vitamin B12 336 200 - 900 pg/mL [facility] Comment:NORMAL 200-900 PG/ML INDETERMINATE 160-199 PG/ML DEFICIENT < 160 PG/ML Folate 6.9 > or = 4.0 ng/mL [facility] Comment:Reference Values:> o r = 4.0 ng/mL< 4.0 ng/mL suggests folate deficiency Methotrexate, aminopterin and folinic acid(leucovorin) are chemotherapeutic agents whose molecularstructures are similar to folate; therefore, the Architectfolate assay cannot be used for patients using these drugs. Blood Venous blood specimen / Unknown 04/26/2025 12:19 PM EDT 04/26/2025 1:57 PM EDT us Brittnee Hanna MD LAB BLOOD ORDERABLES Final Result [facility] [address] [place] [address] [phone] * Iron And Total Iron Binding Capacity (04/26/2025 12:19 PM EDT) Iron 69 30 - 160 mcg/dL [facility] Total Iron Binding Capacity 258 228 - 428 mcg/dL [facility] Percent Iron Saturation 27 15 - 50 % [facility] Unsaturated Iron Binding 189 ug/dL [facility] Blood Venous blood specimen / Unknown 04/26/2025 12:19 PM EDT 04/26/2025 1:57 PM EDT Brittnee Hanna MD LAB BLOOD ORDERABLES Final Result Performing Organization Address [facility]/ZIP Co de Phone Number [facility] [address] [place] [address] [phone] * TSH with Reflex to Free T4 (04/26/2025 12:19 PM EDT) Pathologist [facility] TSH reflex Free T4 0.97 0.32 - 4.0 uIU/mL [facility] Blood Venous blood specimen / Unknown 04/26/2025 12:19 PM EDT 04/26/2025 1:57 PM EDT Brittnee Hanna MD LAB BLOOD ORDERABLES Final Result Performing Organization Address [facility] Co de Phone Number [facility] [address] [place] [phone] * Ferritin (04/26/2025 12:19 PM EDT) Pathologist [facility] Ferritin 105 10 - 250 ng/mL [facility] Blood Venous blood specimen / Unknown 04/26/2025 12:19 PM EDT 04/26/2025 1:57 PM EDT Brittnee Hanna MD LAB BLOOD ORDERABLES Final Result Performing Organization Address [facility] Co de Phone Number [facility] [address] [place] [address] [phone] * (ABNORMAL) CBC auto differential (04/26/2025 12:19 PM EDT) White Blood Count 7.8 4.8 - 10.8 X10*3/uL [facility] Red Blood Count 4.53 4.20 - 5.50 X10*6/uL [facility] Hemoglobin 13.2 12.0 - 16.0 g/dl [facility] Hematocrit 40.3 37.0 - 47.0 % [facility] Mean Corpuscular Volume 89.0 80.0 - 98.0 fL [facility] Mean Corpuscular Hemoglobin 29.1 27.0 - 33.0 pg [facility] Mean Corpuscular HGB Conc 32.8 31.0 - 35.0 g/dl [facility] Red Cell Distribution Width 13.1 11.0 - 16.0 % [facility] Platelet Count 293 160 - 400 X10*3/uL [facility] Mean Platelet Volume 11.2 9.4 - 12.3 fL [facility] Neutrophils Percent Auto 60.8 45 - 73 % [facility] Imm Gran Pct Auto 0.4 0.0 - 0.4 % [facility] Lymphocytes Percent Auto 22.6 20 - 40 % [facility] Monocytes Percent Auto 6.4 2 - 11 % [facility] Eosinophils Percent Auto 9.4(H) 0 - 4 % [facility] Basophils Percent Auto 0.4 0 - 2 % [facility] NRBC Pct Auto 0.0 0.0 - 0.2 /100WBC [facility] Neutrophils Absolute Auto 4.7 2.0 - 8.3 x10*3/uL [facility] Imm Gran Abs Auto 0.03 0.00 - 0.03 X10*3/uL [facility] Lymphocytes Absolute Auto 1.8 1.2 - 4.9 X10*3/uL [facility] Monocytes Absolute Auto 0.5 0.1 - 1.2 X10*3/uL [facility] Eosinophils Absolute Auto 0.7(H) 0.0 - 0.4 X10*3/uL [facility] Basophils Absolute Auto 0.0 0.0 - 0.2 X10*3/uL [facility] NRBC Abs Auto 0.000 0.0 - 0.012 X10*3/uL [facility] Blood Venous blood specimen / Unknown 04/26/2025 12:19 PM EDT 04/26/2025 1:32 PM EDT Brittnee Hanna MD LAB BLOOD ORDERABLES Final Result Performing Organization Address [facility]/ZIP Co de Phone Number [facility] [address] [place] [address] [phone] * (ABNORMAL) Basic Metabolic Panel (04/26/2025 12:19 PM EDT) Sodium 141 135 - 145 mmol/L [facility] Potassium 4.3 3.3 - 5.1 mmol/L [facility] Chloride 107 96 - 108 mmol/L [facility] Carbon Dioxide 28 22 - 29 mmol/L [facility] Anion Gap 10(L) 12 - 20 [facility] Urea Nitrogen (BUN) 14 9 - 16 mg/dL [facility] Creatinine, Serum 0.96 0.5 - 1.4 mg/dL [facility] Estimated Glomerular Filt Rate 59 [facility] Comment:Chronic Kidney Disea se: Estimated GFR < 60 mL/min/[id number] Kidney Disease: Estimated GFR < 15 mL/min/1.73m2 Glucose 120(H) 60 - 115 mg/dL [facility] Calcium 9.9 8.4 - 10.2 mg/dL [facility] Blood Venous blood specimen / Unknown 04/26/2025 12:19 PM EDT 04/26/2025 1:57 PM EDT Brittnee Hanna MD LAB BLOOD ORDERABLES Final Result Performing Organization Address [facility] Co de Phone Number [facility] [address] [place] [address] [phone] * (ABNORMAL) Hemoglobin A1c (04/26/2025 12:19 PM EDT) Hemoglobin A1c 9.4(H) <6.0 % [facility] Comment:Hemoglobin A1C Refer ence Range Adults: 4.8 - 6.0 % Non diabetic: < 6.0 % Goal: < 7.0 %Additional Action Suggested: > 8.0 %Note: Hemoglobin A1c results are invalid for patients with abnormal amounts of HbF. Blood transfusions may impact the HbA1c concentration in the patient sample. Estimated Average Glucose 223 mg/dL [facility] Comment:eAG = Estimated ave rage glucose which is %A1C expressed asaverage glucose, using the formula of the [id number] Glucose study (ADAG), Diabetes Care, Vol.31,#8,Mar. 2007 Blood Venous blood specimen / Unknown 04/26/2025 12:19 PM EDT 04/26/2025 1:57 PM EDT us Brittnee Hanna MD LAB BLOOD ORDERABLES Final Result [facility] [address] [place] [phone] * (ABNORMAL) Lipid Panel, Standard (04/26/2025 12:19 PM EDT) Triglycerides 220(H) <150 mg/dL [facility] Comment:Desirable Triglyceri de: less than 150 mg/dLBorderline High Triglyceride 150-199 mg/dLHigh Triglyceride: 200-499 mg/dLVery High Triglyceride: greater than or equal to 5OO mg/dL Cholesterol 232(H) <200 mg/dL [facility] Comment:Desirable Cholestero l: less than 200 mg/dLBorderline High Cholesterol: 200-239 mg/dLHigh Cholesterol: greater than 239 mg/dL LDL Cholesterol Calculated 140(H) <100 mg/dL [facility] Comment:Desirable LDL: less than 100 mg/dLNear Optimal/Above Optimal LDL: 110- 129 mg/dLBorderline High LDL: 130-159 mg/dLHigh LDL: 160-189 mg/dLVery High LDL: greater than or equal to 190 mg/dL HDL Cholesterol 48 >40 mg/dL [facility] Comment:Desirable HDL: great er than 40 mg/dL Note: This HDL assay may give artificially low results in patients with liver disease. Blood Venous blood specimen / Unknown 04/26/2025 12:19 PM EDT 04/26/2025 1:57 PM EDT Brittnee Hanna MD LAB BLOOD ORDERABLES Final Result Performing Organization Address City/[facility]/ZIP Co de Phone Number [facility] [address] [place] [phone] * (ABNORMAL) Hepatic Function Panel (04/26/2025 12:19 PM EDT) Bilirubin, Total 0.3 0.0 - 1.0 mg/dL [facility] Bilirubin, Direct 0.1 0.0 - 0.5 mg/dL [facility] Aspartate Amino Transferase 32(H) 5 - 31 U/L [facility] Alanine Aminotransferase 41(H) 0 - 31 U/L [facility] Total Protein 7.6 6.5 - 8.0 g/dL [facility] Albumin Level 4.4 3.5 - 5.0 g/dL [facility] Alkaline Phosphatase 114 39 - 117 U/L [facility] Blood Venous blood specimen / Unknown 04/26/2025 12:19 PM EDT 04/26/2025 1:57 PM EDT Brittnee Hanna MD LAB BLOOD ORDERABLES Final Result Performing Organization Address City/[facility]/ZIP Co de Phone Number [facility] [address] [place] [phone] * Albumin, Random Urine W/Creatinine (04/26/2025 12:19 PM EDT) Creatinine, Urine 103.45 mg/dL [facility] Microalbumin Urine 9.0 mg/L [facility] Microalbum Creatinine Ratio Ur 8.6 <30 ug/mg cr [facility] Comment:Albumin/Creatinine R atio Reference Ranges: Normal: < 30 ug/mg creatinine Microalbuminuria: 30 - 300 ug/mg creatinineClinical Albuminuria: > 300 ug/mg creatinine Urine 04/26/2025 12:1 9 PM EDT 04/26/2025 1:26 PM EDT us Brittnee Hanna MD LAB URINE ORDERABLES Final Result [facility] [address] [place] [phone] * (ABNORMAL) POCT Hgb A1c (04/26/2025 11:43 AM EDT) Hemoglobin A1C 9.9(A) 4.0 - 5.7 % QC Media Lot # [id number] Lot# Expiration Date , Blood 04/26/2025 11:4 3 AM EDT us Brittnee Hanna MD POINT OF CARE TEST ENTER/E DIT ORDERABLES Final Result * POCT Glucose (04/26/2025 11:41 AM EDT) Glucose Blood, POC 152 60 - 200 mg/dL QC Media Lot # [id number] Lot# Expiration Date [id number] Blood Capillary blood specimen / Unknown 04/26/2025 11:41 AM EDT us Brittnee Hanna MD POINT OF CARE TEST ENTER/E DIT ORDERABLES Final Result documented in this encounter Visit Diagnoses Diagnosis Type 2 diabetes mellitus with hyperglycemia, with long-term current use of insulin ([facility])- Primary Unintentional weight loss Loss of weight Anemia, unspecified type Asthma-COPD overlap syndrome ([facility]/HCC) Chronic obstructive pulmonary disease, unspecified COPD type ([facility]) Mild intermittent asthma without complication Seasonal allergies Allergic rhinitis, cause unspecified documented in this encounter Additional Health Concerns Assessment Noted Time PHQ-9 Depression Total Score: 17 025 11:40 AM EDT documented as of this encounter Care Teams Molecular Pathologist Relationship Specialty Start Date End Date Brittnee Hanna MD [address] [place] [address] PCP - General Family Medicine 08/17/18 Martina Mancia OD [address] [place] [phone] Optometry 07/26/24 Allyson Armando [address] [place] [address] Cardiology 01/03/25 Donna Sutton Coal Pulver[employer] OperatorSoftware Sales Manager 05/06/24 Bety Benson NP [facility] [place] [facility] Endocrinology 11/04/24 documented as of this encounter
[2025-04-26 13:48] LABS: MANUAL DIFF FLAG NO
[2025-04-26 13:57] LABS: Hematocrit 40.3 % (37.0-47.0); Hemoglobin 13.2 g/dl (12.0-16.0); Imm Gran Abs Auto 0.03 X10*3/uL (0.00-0.03); Imm Gran Pct Auto 0.4 % (0.0-0.4); Lymphocytes Absolute Auto 1.8 X10*3/uL (1.2-4.9); Mean Corpuscular HGB Conc 32.8 g/dl (31.0-35.0); Mean Corpuscular Hemoglobin 29.1 pg (27.0-33.0); Mean Corpuscular Volume 89.0 fL (80.0-98.0); NRBC Abs Auto 0.000 X10*3/uL (0.0-0.012); NRBC Pct Auto 0.0 /100WBC (0.0-0.2); Platelet Count 293 X10*3/uL (160-400); Red Blood Count 4.53 X10*6/uL (4.20-5.50); White Blood Count 7.8 X10*3/uL (4.8-10.8)
[2025-04-26 14:13] LABS: Hemoglobin A1C 272.8291 umol/L; Total Hemoglobin (HGBA1C) 3456.6818 umol/L
[2025-04-26 14:38] LABS: Albumin Level 4.4 g/dL (3.5-5.0); Alkaline Phosphatase 114 U/L (39-117); Anion Gap 10 (12-20); Aspartate Amino Transferase 32 U/L (5-31); Blood Urea Nitrogen 14 mg/dL (9-16); Calcium 9.9 mg/dL (8.4-10.2); Carbon Dioxide 28 mmol/L (22-29); Chloride 107 mmol/L (96-108); Cholesterol 232 mg/dL (<200); Estimated Glomerular Filt Rate 59; HDL Cholesterol 48 mg/dL (>40); Iron 69 mcg/dL (30-160); Percent Iron Saturation 27 % (15-50); Potassium 4.3 mmol/L (3.3-5.1); Sodium 141 mmol/L (135-145); Total Iron Binding Capacity 258 mcg/dL (228-428); Total Protein 7.6 g/dL (6.5-8.0); Triglycerides 220 mg/dL (<150); Unsaturated Iron Binding 189 ug/dL
[2025-04-26 14:39] LABS: Ferritin 105 ng/mL (10-250)
[2025-04-26 14:49] LABS: Folate 6.9 ng/mL (> or = 4.0); Vitamin B12 336 pg/mL (200-900)
[2025-04-26 14:53] LABS: Alanine Aminotransferase 41 U/L (0-31)
[2025-04-26 14:54] LABS: Microalbum/Creatinine Ratio Ur 8.6 ug/mg cr (<30)
--- OUTSIDE RECORDS SUMMARY | 2025-04-26 15:19 | XMS_ITS | Clinical Summary ---
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 Continuous Blood Gluc Artificial Stone Applicator (FreeStyle Ric 2 [place]) device Use as directed 1 each 023 Active Continuous Glucose Sensor (FreeStyle Ric 2 Sensor) miscIndications :Type 2 diabetes mellitus with hyperglycemia, with long-term current use of insulin ([facility]) USE DIRECTED TO TEST BLOOD SUGAR CHANGE EVERY 14 DAYS 2 each 024 Active Blood Glucose Monitoring Suppl (FreeStyle Downey Lite) w/Device kitIndications: Type 2 diabetes mellitus with hyperglycemia, with long-term current use of insulin ([facility]) TEST BLOOD SUGAR FIVE TIMES DAILY DIRECTED 1 kit 024 Active OLANZapine (ZyPREXA) 7.5 MG tabletIndicatio ns:Recurrent major depressive disorder, in remission ([facility]) TAKE 1 TABLET BY MOUTH AT BEDTIME 30 tablet 11 024 Active Alcohol Swabs (Alcohol Prep) 70 % padsIndications :Type 2 diabetes mellitus with hyperglycemia, with long-term current use of insulin ([facility]) USE BEFORE TEST BLOOD SUGAR AND INSULIN 100 each 024 Active glucose 4 g chewable tabletIndicatio ns:Type 2 diabetes mellitus with hyperglycemia, with long-term current use of insulin ([facility]) Chew 4 tablets (16 g) if needed for low blood sugar. 50 tablet Active glucagon (Baqsimi Two Pack) 3 MG/DOSE nasal powderIndicatio ns:Type 2 diabetes mellitus with hyperglycemia, with long-term current use of insulin ([facility]) For low blood sugar emergencies, insert 3mg [...] hyperglycemia, with long-term current use of insulin ([facility]) TEST BLOOD SUGAR UP TO FOUR TIMES [...] hyperglycemia, with long-term current use of insulin ([facility]) Use as directed to check for ketones [...] complication, with long-term current use of insulin ([facility]) Administer 18 units daily before each meal 15 mL Active lisinopril 20 MG tabletIndicatio ns:Essential hypertension TAKE 1 TABLET BY MOUTH EVERY MORNING 90 tablet 3 Active atorvastatin (Lipitor) 80 MG tabletIndicatio ns:Type 2 diabetes mellitus with hyperglycemia, with long-term current use of insulin ([facility]),Dysli pidemia TAKE 1 TABLET BY MOUTH AT [...] complication, with long-term current use of insulin ([facility]) INJECT 42 UNITS SUBCUTANEOUSLY EVERY DAY AT BEDTIME, IF FASTING BLOOD SUGAR IS > 180 INCREASE TO 46 UNITS AFTER 3 DAYS 15 mL Active amLODIPine (Norvasc) 5 MG tabletIndicatio ns:Essential hypertension TAKE 1 TABLET BY MOUTH EVERY MORNING 90 tablet Active TRUEplus Lancets 33G miscIndications :Type 2 diabetes mellitus with hyperglycemia, with long-term current use of insulin ([facility]) TEST BLOOD SUGAR FIVE TIMES DAILY 200 each Active aspirin (Aspirin Adult Low Strength) 81 MG EC tabletIndicatio ns:Coronary artery stenosis Take 1 tablet (81 mg) by mouth in the morning. 90 tablet 025 Active chlorthalidone (Hygroton) 25 MG tabletIndicatio ns:Essential hypertension TAKE ONE HALF TABLET BY MOUTH ONCE DAILY 45 tablet 1 025 Active metoprolol succinate XL (Toprol-XL) 50 MG 24 hr tabletIndicatio ns:Essential hypertension Take 1 tablet (50 mg) by mouth in the morning. Do not crush or chew. 90 tablet 3 025 Active tiotropium (Spiriva HandiHaler) 18 MCG inhalation capsuleIndicati ons:Asthma-COPD overlap syndrome (CMS/HCC) Place 1 capsule (18 mcg) into inhaler and inhale in the morning. 30 capsule 11 025 Active albuterol (Ventolin HFA) 108 (90 Base) MCG/ACT inhalerIndicati ons:Asthma-COPD overlap syndrome (CMS/HCC) INHALE 2 PUFFS BY MOUTH EVERY 4 HOURS NEEDED FOR WHEEZING OR SHORTNESS OF BREATH 18 g 025 Active Fluticasone-Larry meterol (Advair Diskus) 250-50 MCG/ACT aerosol powderIndicatio ns:Asthma-COPD overlap syndrome (CMS/HCC) Inhale 250 mg 2 times daily. 60 each 5 025 Active fluticasone (Flonase) 50 MCG/ACT nasal sprayIndication s:Seasonal allergies 1 spray each nostril daily prn allergies Shake gently. Before first use, prime pump. After use, clean tip and replace cap. 16 g 2 025 Active Advair Diskus 250-50 MCG/ACT aerosol powderIndicatio ns:Mild intermittent asthma without complication INHALE 1 PUFF BY MOUTH TWICE DAILY IN THE MORNING AND IN THE EVENING. RINSE MOUTH AFTER USING. 60 each 5 025 2024 Discontinued Spiriva HandiHaler 18 MCG inhalation capsuleIndicati ons:Chronic obstructive pulmonary disease, unspecified COPD type (CMS/HCC),Mild intermittent asthma without complication USE 1 CAPSULE FOR INHALATION ONCE A DAY DO NOT SWALLOW CAPSULE 30 capsule 025 2024 Discontinued(R eorder (will not trigger notification to Pharmacy)) albuterol (Ventolin HFA) 108 (90 Base) MCG/ACT [...] AFTER USING. 60 each 5 025 2024 Discontinued(R eorder (will not trigger notification to Pharmacy)) albuterol (Ventolin HFA) 108 (90 Base) MCG/ACT inhalerIndicati ons:Mild intermittent asthma without complication INHALE 2 PUFFS BY MOUTH EVERY 4 HOURS NEEDED FOR WHEEZING OR SHORTNESS OF BREATH 18 g 025 2024 Discontinued(R eorder (will not trigger notification to Pharmacy)) Active Problems Patient Care Coordination No te Formatting of this note migh t be different from the original. Enrolled in [facility] DM clinic with Shabbir McmillanD, [facility] Problem Noted Date Diagnosed Date Unintentional weight loss 08/10/2024 Overview (04/26/2025): Pt with unintentional weight loss. Differential includes [...] 2024. Gained 3 lbs since Aug 2024. Assessment & Plan (04/26/2025 1:43 PM EDT): Pt with unintentional weight loss. Differential includes uncontrolled diabetes, neoplasm, GI etiology vs other. Baseline weight was 140 lbs in 2021 Weight 120 lbs 08/21/2024 -TSH 0.62 05/2024 -HIV neg 04/2019 -colonoscopy 2020 but recommended 5 year follow up due to poor prep -CXR 03/19/24 unremarkable -mammo normal BIRADS 07/2023 -referral to GI and Endocrinology placed [...] 2024. Gained 3 lbs since Aug 2024. Assessment & Plan (2024 2:11 PM EST): Pt with unintentional weight loss. Differential includes uncontrolled diabetes, neoplasm, GI etiology vs other. Baseline weight was 140 lbs in 2021 Weight 120 lbs 08/21/2024 -TSH 0.62 05/2024 -HIV neg 04/2019 -colonoscopy 2020 but recommended 5 year follow up due to poor prep -CXR 03/19/24 unremarkable -mammo normal BIRADS 07/2023 -referral to GI and Endocrinology placed 1/16/25 Colon cancer screening 08/10/2024 Overview (08/10/2024): 2020 [...] for OP and psychiatry services in the [place] area. clinician provided contact information for [facility] in [place]. Dizziness 12/30/2023 Overview (12/31/2023): Pt continues to [...] as pharmacomtherapy, [facility] smoking cessation group, and [facility] pharmacy smoking cessation clinic Discussed [...] as pharmacomtherapy, [facility] smoking [facility], and [facility] pharmacy smoking cessation clinic Discussed [...] as pharmacomtherapy, [facility] smoking cessation group, and [facility] pharmacy smoking cessation clinic Discussed [...] due after 07/27/25 -eye care facilitated by [facility] on 05/20/2023 -dental home is [facility], [facility] -health care proxy filed 04/07/24 Assessment & Plan (07/27/2024 2:57 PM EST): -next physical exam due after 07/27/25 -eye care facilitated by [facility] on 05/20/2023 -dental home is [facility], [facility] -health care proxy filed 04/07/24 Assessment & Plan (04/07/2024 10:24 AM EDT): -next physical exam due after 06/10/2024 -eye care facilitated by [facility] on 05/20/2023 -dental home is [facility], [facility] -health care proxy filed 04/07/24 Assessment & Plan (06/10/2023 2:19 PM EDT): -next physical exam due after 06/10/2024 -eye care facilitated by [facility] on 05/20/2023 -dental home is Anemia 04/01/2022 Overview (04/26/2025): Lab Results Component Value Date HGB 12.1 [...] to GI 05/16/22. -ordered iron panel 04/26/25 Assessment & Plan (04/26/2025 1:43 PM EDT): Lab Results Component Value Date HGB 12.1 [...] B12 (Cobalamin) and Folate Panel, Serum; Future Assessment & Plan (06/10/2023 2:02 PM EDT): [...] strict ED precautions. -Referral to re-establish with [facility] placed Assessment & Plan (09/22/2022 [...] Uses her albuterol regularly. Assessment & Plan (04/26/2025 1:43 PM EDT): -On Advair and Spiriva with [...] ; Inhale 250 mg 2 times daily. Assessment & Plan (04/07/2024 9:06 AM EDT): [...] for OP and psychiatry services in the [place] area. clinician provided contact information for [facility] in [place]. Assessment & Plan (01/08/2023 10:29 AM EDT): [...] health services. PLAN: 1. Follow up with [facility]: Not [...] Rx for Olanzapine 7.5mg I will email [facility] to make an appt with Dr Quinn [...] long-term current use of insulin 03/25/2012 Overview (04/26/2025): Diabetes is not controlled. Rereferred to endo and restablished 10/2024 at [facility] End[facility] . Note from 02/07/25 reviewed. [...] UTI and yeast infections. Assessment & Plan (04/26/2025 1:43 PM EDT): Diabetes is not controlled. Rereferred to endo and restablished 10/2024 at [facility] End[facility] . Note from 02/07/25 reviewed. [...] Hemoglobin A1c; Future Basic Metabolic Panel; Future Assessment & Plan (2024 2:13 PM EST): [...] glucose monitor. Needs sensors. She did not grape picker but will this week. Lab Results [...] is not controlled. -Pt is followed by [facility]. Lab Results Component Value Date HGBA1C [...] admitted on 03/17/2022 for DKA (diabetic ketoacidosis) ([facility]) [E11.10];Acute cystitis without hematuria [N30.00] Results: Results [...] admitted on 03/17/2022 for DKA (diabetic ketoacidosis) ([facility]) [E11.10];Acute cystitis without hematuria [N30.00] Results: Results [...] Encounters Date Type Department Care Team Description 04/26/2025 11:30 AM EDT Office Visit [facility] [address] [place] [address] Brittnee Hanna MD Type 2 diabetes mellitus with hyperglycemia, with long-term current use of insulin ([facility]) (Primary Dx); Unintentional weight loss; Anemia, unspecified type; Asthma-COPD overlap syndrome ([facility]); Chronic obstructive pulmonary disease, unspecified COPD type ([facility]); Mild intermittent asthma without complication; Seasonal allergies 04/26/2025 Travel 04/25/2025 Telephone [facility] [address] [place] [address] Brittnee Hanna MD chart prep 04/19/2025 Travel 04/06/2025 Refill [facility] [address] [place] [phone] Brittnee Hanna MD Mild intermittent asthma without complication 04/05/2025 Refill [facility] [address] [place] [address] Brittnee Hanna MD Mild intermittent asthma without complication 03/13/2025 Refill [facility] [address] [place] [address] Brittnee Hanna MD Coronary artery stenosis; Essential hypertension 03/13/2025 Telephone [facility] [address] [place] [address] Brittnee Hanna MD 03/09/2025 Refill [facility] [address] [place] [address] Brittnee Hanna MD Mild intermittent asthma without complication 02/14/2025 Telephone [facility] [address] [place] [address] Brittnee Hanna MD 02/14/2025 Refill [facility] [address] [place] [address] Brittnee Hanna MD Essential hypertension; Chronic obstructive pulmonary disease, unspecified COPD type ([facility]); Mild intermittent asthma without complication; Type 2 diabetes mellitus with hyperglycemia, with long-term current use of insulin ([facility]) 02/07/2025 Orders Only GENERIC EXTERNAL DATA DEPARTMENT Provider, Generic External Data 01/31/2025 Refill [facility] [address] [place] [address] Brittnee Hanna MD Mild intermittent asthma without complication 01/24/2025 Refill [facility] [address] [place] [address] Nguyen Orourke MD Type 2 diabetes mellitus with other circulatory complication, with long-term current use of insulin ([facility]) from Last 3 Months Immunizations Immunization Administration [...] Mass Index 22.53 04/26/2025 11:38 AM EDT Plan of Treatment Health Maintenance Due Date Last Done Comments CT Colonography 1963 FIT DNA/Cologuard 1963 FIT 1963 FOBT 1965 Sigmoidoscopy 1963 Zoster Vaccines (1 of 2) 2013 RSV Patients and Patients Aged 60 years or older (1 - Risk 60-74 years 1-dose series) 2023 COVID-19 Vaccine ( season) 2025 09/04/2022, 05/16/2022, 05/08/2021 Influenza Vaccine (#1) 2025 , 06/10/2023, 05/16/2022, Additional history exists Mammogram 07/24/2025 07/24/2023, 05/18, 06/14/2018 Diabetes: Hemoglobin A1C 07/26/2025 025, 04/26/2025, 01/10/2025, Additional history exists Alcohol/Substance Use Screening 07/27/2025 07/27/2024 Diabetes: Foot Exam 07/27/2025 07/27/2024, 07/27/2024, 07/27/2024, Additional history exists Depression Monitoring 10/24/2025 04/26/2025, 025 Disability Screening 04/19/2026 04/19/2025 Diabetes: Urine Protein Screening 04/26/2026 04/26/2025, 09/19/2024, 07/21/2023, Additional history exists Lipid Panel 04/26/2026 04/26/2025, 02/0 10/2024, 09/19/2024, Additional history exists SDOH Screening 04/26/2026 04/26/2025 Tobacco Screening 04/26/2026 04/26/2025 Eye Exam 11/07/2026 11/07/2024, 10/16, 11/07/2024, Additional [...] Component 9.4( 12:19 PM EDT) No Di Meyers, Bo Procedures Procedure Name Priority Date/Time Associated Diagnosis Comments VITAMIN B12/FOLATE, SERUM PANEL Routine 04/26/2025 12:19 PM EDT Anemia, unspecified type IRON AND TOTAL IRON BINDING CAPACITY Routine 04/26/2025 12:19 PM EDT Anemia, unspecified type TSH W/REFLEX TO FT4 Routine 04/26/2025 1 2:19 PM EDT Anemia, unspecified type FERRITIN Routine 04/26/2025 12:19 PM EDT Anemia, unspecified type CBC WITH AUTO DIFFERENTIAL Routine 04/26/2025 12:19 PM EDT Anemia, unspecified type BASIC METABOLIC PANEL Routine 04/26/2025 12:19 PM EDT Type 2 diabetes mellitus with hyperglycemia, with long-term current use of insulin ([facility]) HEMOGLOBIN A1C Routine 04/26/2025 12:19 PM EDT Type 2 diabetes mellitus with hyperglycemia, with long-term current use of insulin ([facility]) LIPID PANEL, STANDARD Routine 04/26/2025 12:19 PM EDT Type 2 diabetes mellitus with hyperglycemia, with long-term current use of insulin ([facility]) HEPATIC FUNCTION PANEL Routine 12:19 PM EDT Type 2 diabetes mellitus with hyperglycemia, with long-term current use of insulin ([facility]) ALBUMIN, RANDOM URINE W/CREATININE Routine 04/26/2025 12:19 PM EDT Type 2 diabetes mellitus with hyperglycemia, with long-term current use of insulin ([facility]) POCT GLYCATED HEMOGLOBIN, TOTAL Routine 04/26/2025 11:43 AM EDT Type 2 diabetes mellitus with hyperglycemia, with long-term current use of insulin ([facility]) POCT GLUCOSE Routine 04/26/2025 11:41 AM EDT Type 2 diabetes mellitus with hyperglycemia, with long-term current use of insulin ([facility]) GLUCOSE, WHOLE BLOOD Routine 02/07/2025 2:58 PM EDT BI MAMMOGRAM SCREENING TOMOSYNTHESIS BILATERAL Routine [...] Recently Relevant to Health Maintenance Results * Vitamin B12 (Cobalamin) and Folate Panel, Serum (04/26/2025 12:19 PM EDT) Vitamin B12 336 200 - 900 pg/mL [facility] Comment:NORMAL 200-900 PG/ML INDETERMINATE 160-199 PG/ML DEFICIENT < 160 PG/ML Folate 6.9 > or = 4.0 ng/mL [facility] Comment:Reference Values:> o r = 4.0 ng/mL< 4.0 ng/mL suggests folate deficiency Methotrexate, aminopterin and folinic acid(leucovorin) are chemotherapeutic agents whose molecularstructures are similar to folate; therefore, the Architectfolate assay cannot be used for patients using these drugs. Blood Venous blood specimen / Unknown 04/26/2025 12:19 PM EDT 04/26/2025 1:57 PM EDT Brittnee Hanna MD LAB BLOOD ORDERABLES Final Result [facility] [address] [place] [phone] * TSH with Reflex to Free T4 (04/26/2025 12:19 PM EDT) TSH reflex Free T4 0.97 0.32 - 4.0 uIU/mL [facility] Blood Venous blood specimen / Unknown 04/26/2025 12:19 PM EDT 04/26/2025 1:57 PM EDT Brittnee Hanna MD LAB BLOOD ORDERABLES Final Result Performing Organization Address [facility] Co de Phone Number [facility] [address] [place] [address] [phone] * Albumin, Random Urine W/Creatinine (04/26/2025 12:19 PM EDT) Pathologist [facility] Creatinine, Urine 103.45 mg/dL [facility] Microalbumin Urine 9.0 mg/L [facility] Microalbum Creatinine Ratio Ur 8.6 <30 ug/mg cr [facility] Comment:Albumin/Creatinine R atio Reference Ranges: Normal: < 30 ug/mg creatinine Microalbuminuria: 30 - 300 ug/mg creatinineClinical Albuminuria: > 300 ug/mg creatinine Urine 04/26/2025 12:1 9 PM EDT 04/26/2025 1:26 PM EDT Brittnee aHnna MD LAB URINE ORDERABLES Final Result Performing Organization Address [facility] Co de Phone Number [facility] [address] [place] [phone] * (ABNORMAL) CBC auto differential (04/26/2025 12:19 PM EDT) [facility] White Blood Count 7.8 4.8 - 10.8 X10*3/uL [facility] Red Blood Count 4.53 4.20 - 5.50 X10*6/uL [facility] Hemoglobin 13.2 12.0 - 16.0 g/dl [facility] Hematocrit 40.3 37.0 - 47.0 % [facility] Mean Corpuscular Volume 89.0 80.0 - 98.0 fL [facility] Mean Corpuscular Hemoglobin 29.1 27.0 - 33.0 pg [facility] Mean Corpuscular HGB Conc 32.8 31.0 - 35.0 g/dl [facility] Red Cell Distribution Width 13.1 11.0 - 16.0 % [facility] Platelet Count 293 160 - 400 X10*3/uL [facility] Mean Platelet Volume 11.2 9.4 - 12.3 fL [facility] Neutrophils Percent Auto 60.8 45 - 73 % [facility] Imm Gran Pct Auto 0.4 0.0 - 0.4 % [facility] Lymphocytes Percent Auto 22.6 20 - 40 % [facility] Monocytes Percent Auto 6.4 2 - 11 % [facility] Eosinophils Percent Auto 9.4(H) 0 - 4 % [facility] Basophils Percent Auto 0.4 0 - 2 % [facility] NRBC Pct Auto 0.0 0.0 - 0.2 /100WBC [facility] Neutrophils Absolute Auto 4.7 2.0 - 8.3 x10*3/uL [facility] Imm Gran Abs Auto 0.03 0.00 - 0.03 X10*3/uL [facility] Lymphocytes Absolute Auto 1.8 1.2 - 4.9 X10*3/uL [facility] Monocytes Absolute Auto 0.5 0.1 - 1.2 X10*3/uL [facility] Eosinophils Absolute Auto 0.7(H) 0.0 - 0.4 X10*3/uL [facility] Basophils Absolute Auto 0.0 0.0 - 0.2 X10*3/uL [facility] NRBC Abs Auto 0.000 0.0 - 0.012 X10*3/uL [facility] Blood Venous blood specimen / Unknown 04/26/2025 12:19 PM EDT 04/26/2025 1:32 PM EDT us Brittnee Hanna MD LAB BLOOD ORDERABLES Final Result [facility] [address] [place] [phone] * Iron And Total Iron Binding Capacity (04/26/2025 12:19 PM EDT) Iron 69 30 - 160 mcg/dL [facility] Total Iron Binding Capacity 258 228 - 428 mcg/dL [facility] Percent Iron Saturation 27 15 - 50 % [facility] Unsaturated Iron Binding 189 ug/dL [facility] Blood Venous blood specimen / Unknown 04/26/2025 12:19 PM EDT 04/26/2025 1:57 PM EDT Brittnee Hanna MD LAB BLOOD ORDERABLES Final Result Performing Organization Address [facility] Co de Phone Number [facility] [address] [place] [phone] * (ABNORMAL) Hemoglobin A1c (04/26/2025 12:19 PM EDT) Hemoglobin A1c 9.4(H) <6.0 % [facility] Comment:Hemoglobin A1C Refer ence Range Adults: 4.8 - 6.0 % Non diabetic: < 6.0 % Goal: < 7.0 %Additional Action Suggested: > 8.0 %Note: Hemoglobin A1c results are invalid for patients with abnormal amounts of HbF. Blood transfusions may impact the HbA1c concentration in the patient sample. Estimated Average Glucose 223 mg/dL [facility] Comment:eAG = Estimated ave rage glucose which is %A1C expressed asaverage glucose, using the formula of the [id number] Glucose study (ADAG), Diabetes Care, Vol.31,#8,Aug. 2007 Blood Venous blood specimen / Unknown 04/26/2025 12:19 PM EDT 04/26/2025 1:57 PM EDT Brittnee Hanna MD LAB BLOOD ORDERABLES Final Result Performing Organization Address City/[facility]/ZIP Co de Phone Number [facility] [address] [place] [phone] [phone] * Ferritin (04/26/2025 12:19 PM EDT) Ferritin 105 10 - 250 ng/mL [facility] Blood Venous blood specimen / Unknown 04/26/2025 12:19 PM EDT 04/26/2025 1:57 PM EDT Brittnee Hanna MD LAB BLOOD ORDERABLES Final Result Performing Organization Address City/[facility]/ZIP Co de Phone Number [facility] [address] [place] [phone] * (ABNORMAL) Hepatic Function Panel (04/26/2025 12:19 PM EDT) Bilirubin, Total 0.3 0.0 - 1.0 mg/dL [facility] Bilirubin, Direct 0.1 0.0 - 0.5 mg/dL [facility] Aspartate Amino Transferase 32(H) 5 - 31 U/L [facility] Alanine Aminotransferase 41(H) 0 - 31 U/L [facility] Total Protein 7.6 6.5 - 8.0 g/dL [facility] Albumin Level 4.4 3.5 - 5.0 g/dL [facility] Alkaline Phosphatase 114 39 - 117 U/L [facility] Blood Venous blood specimen / Unknown 04/26/2025 12:19 PM EDT 04/26/2025 1:57 PM EDT Brittnee Hanna MD LAB BLOOD ORDERABLES Final Result Performing Organization Address [facility] Co de Phone Number [facility] [address] [place] [phone] * (ABNORMAL) Lipid Panel, Standard (04/26/2025 12:19 PM EDT) Triglycerides 220(H) <150 mg/dL [facility] Comment:Desirable Triglyceri de: less than 150 mg/dLBorderline High Triglyceride 150-199 mg/dLHigh Triglyceride: 200-499 mg/dLVery High Triglyceride: greater than or equal to 5OO mg/dL Cholesterol 232(H) <200 mg/dL [facility] Comment:Desirable Cholestero l: less than 200 mg/dLBorderline High Cholesterol: 200-239 mg/dLHigh Cholesterol: greater than 239 mg/dL LDL Cholesterol Calculated 140(H) <100 mg/dL [facility] Comment:Desirable LDL: less than 100 mg/dLNear Optimal/Above Optimal LDL: 110- 129 mg/dLBorderline High LDL: 130-159 mg/dLHigh LDL: 160-189 mg/dLVery High LDL: greater than or equal to 190 mg/dL HDL Cholesterol 48 >40 mg/dL [facility] Comment:Desirable HDL: great er than 40 mg/dL Note: This HDL assay may give artificially low results in patients with liver disease. Blood Venous blood specimen / Unknown 04/26/2025 12:19 PM EDT 04/26/2025 1:57 PM EDT Brittnee Hanna MD LAB BLOOD ORDERABLES Final Result [facility] [address] [place] [phone] * (ABNORMAL) Basic Metabolic Panel (04/26/2025 12:19 PM EDT) Sodium 141 135 - 145 mmol/L [facility] Potassium 4.3 3.3 - 5.1 mmol/L [facility] Chloride 107 96 - 108 mmol/L [facility] Carbon Dioxide 28 22 - 29 mmol/L [facility] Anion Gap 10(L) 12 - 20 [facility] Urea Nitrogen (BUN) 14 9 - 16 mg/dL [facility] Creatinine, Serum 0.96 0.5 - 1.4 mg/dL [facility] Estimated Glomerular Filt Rate 59 [facility] Comment:Chronic Kidney Disea se: Estimated GFR < 60 mL/min/1.21o2Hjhpyu Kidney Disease: Estimated GFR < 15 mL/min/1.73m2 Glucose 120(H) 60 - 115 mg/dL [facility] Calcium 9.9 8.4 - 10.2 mg/dL [facility] Blood Venous blood specimen / Unknown 04/26/2025 12:19 PM EDT 04/26/2025 1:57 PM EDT Brittnee Hanna MD LAB BLOOD ORDERABLES Final Result Performing Organization Address City/[facility]/ZIP Co de Phone Number [facility] [address] [place] [phone] * (ABNORMAL) POCT Hgb A1c (04/26/2025 11:43 AM EDT) Hemoglobin A1C 9.9(A) 4.0 - 5.7 % QC Media Lot # [id number] Lot# Expiration Date [id number], Blood 04/26/2025 11:4 3 AM EDT Brittnee Hanna MD POINT OF CARE TEST ENTER/E DIT ORDERABLES Final Result * POCT Glucose (04/26/2025 11:41 AM EDT) Glucose Blood, POC 152 60 - 200 mg/dL QC Media Lot # [id number] Lot# Expiration Date [id number] Blood Capillary blood specimen / Unknown 04/26/2025 11:41 AM EDT Result [facility] Brittnee Hanna MD POINT OF CARE TEST ENTER/E DIT ORDERABLES Final Result * (ABNORMAL) Glucose, Whole Blood (02/07/2025 2:58 PM EDT) Glucose, Whole Blood 189(H) 60 - 115 mg/dL [facility] Comment:METER #: [id number] Testing performed in the Endocrinology Department [address] , [address], [facility]. 02/07/2025 2:58 PM EDT 02/07/2025 3:03 PM EDT Generic External Data Provider LAB BLOOD ORDERAB LES Final Result [facility] [address] [place] [phone] * BI Mammogram Screening Tomosynthesis Bilateral (07/24/2023 3:39 PM EST) Anatomical Region Laterality Modality Breast Bilateral Mammography 07/24/2023 3:39 PM EST Narrative 08/12/2023 3:43 AM EST [facility] [address] [place] [address] Mammography Report Signed Patient: Cynthia Perry MR#: [id number] : 1965 Acct:[id number] Age/Sex: 57 / F ADM Date: 07/24/23 Loc: HO.MAMMO Attending Dr: Brittnee Hanna MD Ordering Physician: Brittnee Hanna MD Results: 1N egative Date of Service: 07/24/23 Follow Up: 1 Year From Orig ina Mammogram Procedure(s): MM tomosynthesis screening BI Accession Number(s): [id number] cc: Brittnee Hanna MD EXAMINATION: MM SCREENING [...] in OV> 08/12/23 0340 DD/ 1539 TD/TT: Furnace Cooler: Procedure Note Donotuseinterpreter, Image - 08/12/2023 [facility] [address] [place], [place] [address] Mammography Report Signed Patient: Cynthia PerryMR#: [id number] : 1965Acct:[id number] Age/Sex: 57 / FADM Date: 07/24/23 Loc: HO.MAMMO Attending Dr: Brittnee Hanna MD Ordering Physician: Brittnee Hanna MDResults: 1N egative Date of Service: 07/24/23Follow Up: 1 Year From Orig inal Mammogram Procedure(s): MM tomosynthesis screening BI Accession Number(s): [id number] cc: Brittnee Hanna MD EXAMINATION: MM SCREENING [...] in OV> 08/12/23 0340 DD/ 1539 TD/TT: Furnace Cooler: us Brittnee Hanna MD IMG BI PROCEDURES Edited [...] test SurePath(TM) specimens have been determined by [employer]. The modifications have not been cleared or approved by the FDA. This assay has been validated pursuant to the CLIA regulations and is used for clinical purposes. For additional information, please refer to https://education.Unight/faq/SKY451 (This link is being provided for information/ educational purposes only.) COMMENT SEE COMMENT [facility] Comment: EXPLANATORY NOTE: The Pap is a [...] been evaluated with computer assisted technology. CONVERTED GVISP 1 Certified Veterinary Technician: SEE COMMENT [facility] Comment: RXB, CT(ASCP) CT screening location: [place] [address] HPV nRNA E6/E7 Not Detected Not Detected CONVERTED GVISP 1 Comment: Methodology: Drilling Engineer-Mediated Amplification This assay detects E6/E7 viral messenger RNA (mRNA) from 14 high-risk HPV types (16,18,31,33,35,39,45,51,52,56,58,59,66,68). Cervical sources are required for HPV testing. If a vaginal source from a patient who has had a total hysterectomy with removal of cervix was submitted, please contact the testing laboratory for alternative testing options. For additional information, please refer to http://education.Unight/faq/HMS551n4 (This link if provided for information/ educational [...] of this assay have been determined by [employer]. The modifications have not been cleared or approved by the FDA. This assay has been validated pursuant to the CLIA regulations and is used for clinical purposes. For additional information, please refer to http://education.Unight/ faq/Trichomonastma (This link is being provided for information/ educational purposes only.) 05/16/2022 9:44 AM EDT Result [facility] Brittnee Hanna MD LAB PATHOLOGY ORDERABLES F inal Result [facility] * Pap Smear (05/16/2022 12:00 AM EDT) Swab Result [facility] Provider LAB CYTOLOGY ORDERABLES F inal Result [facility] * Hm Colonoscopy (08/21/2020) Colonoscopy hyperplastic polyp Dr. Olivarez Result [facility] Provider HEALTH MAINTENANCE Final Result * HIV-1 antibody, EIA (04/25/2019) External HIV-1 Antibody Negative Blood Venous blood specimen / Unknown Result [facility] Provider LAB BLOOD ORDERABLES Emelia l Result * Hepatitis C Antibody with Reflex to HCV, RNA, Quantitative, Real-Time PCR (02/22/2014) Blood Venous blood specimen / Unknown 02/22/2014 Result [facility] Provider LAB BLOOD ORDERABLES Emelia l Result from Last 3 Months or Most Recently Relevant to Health Maintenance Insurance [facility] C3 Advance Directives Documents on File Type Date Recorded Patient Dance Artist Expl anation Advance Directives and Living Will 04/07/2024 Health Care Proxy 04/07/24 Care Teams Cutting Tool Sharpener Relationship Specialty Start Date End Date [place], MD Brittnee [address] [place] [address] PCP - General Family Medicine 08/17/18 Martina Mancia OD [address] [place] [phone] Optometry 07/26/24 Allyson Armando [address] [place] [address] Drive 3rd [place] [address] Cardiology 01/03/25 Donna Sutton Compound Coating Machine OffbearerNarrow Fabric Loom Fixer 05/06/24 Bety Benson NP [facility] Endocrinology Endocrinology 11/04/24
--- OUTSIDE RECORDS SUMMARY | 2025-04-26 15:19 | XMS_ITS | Encounter Summary ---
Author Organization [employer] Address [address] [facility] 7t [place] [address] Care Team Providers Care Hair Dryer Name Role Phone Brittnee Hanna MD Primary Care Provider [phone]- [phone] Tan Mancian OD Unavailable [phone] Adolfo Armandon Unavailable Reason for Visit * Reason Comments Med Refill Encounter Details Date Type Department Care Team ([facility] st Contact Info) Description 10/03/2024 Refill [facility] MEDICINE [address] [place] [address] Brittnee Hanna MD [address] [place] [address] Mild intermittent asthma without complication Social History [...] Pressure 140/90(2024 11:38 AM EDT) No Di Meyers, PharmD Hemoglobin A1c < 7 Result Component 9.4( 12:19 PM EDT) No Di Meyers, PharmD documented as of this encounter Visit Diagnoses Diagnosis Mild intermittent asthma without complication documented in this encounter Additional Health Concerns Assessment Noted Time PHQ-9 Depression Total Score: 15 024 10:35 AM EDT documented as of this encounter Care Teams Hair Dryer Relationship Specialty Start Date End Date Brittnee Hanna MD [address] [place] [address] PCP - General Family Medicine 08/17/18 Martina Mancia OD [address] [place] [address] Optometry 07/26/24 Allyson Armando [address] 3rd [place] [address] Cardiology 01/03/25 Donna Sutton Freight CoordinatorLicensed Architect 05/06/24 Bety Benson NP [facility] Endocrinology Endocrinology 11/04/24 documented as of this encounter
--- OUTSIDE RECORDS SUMMARY | 2025-04-26 15:19 | XMS_ITS | Encounter Summary ---
Author Organization [employer] Address [address] [place] [address] 7t [place] [address] Care Team Providers Care Instructor Modeling Name Role Phone Brittnee Hanna MD Primary Care Provider [phone]- [phone] Di Hyde PharmD Unavailable Martina Mancia OD Unavailable Prabha, Allyson Unavailable Reason for Visit * Reason Comments Med Refill Encounter Details Date Type Department Care Team ([facility] st Contact Info) Description 02/18/2023 Refill [facility] MEDICINE [address] [place], [place] [phone] Brittnee Hanna MD [address] [place], [place] [phone] Type 2 diabetes mellitus with other circulatory complication, with long-term current use of insulin ([facility]) Social History Tobacco Use [...] Author Hemoglobin A1c < 7 Result Component 9.4(04/26/2025 12:19 PM EDT) No Di Hyde PharmD documented as of this encounter Visit Diagnoses Diagnosis Type 2 diabetes mellitus with other circulatory complication, with long-term current use of insulin ([facility]) documented in this encounter Additional Health Concerns Assessment Noted Time PHQ-9 Depression Total Score: 023 9:47 AM EDT documented as of this encounter Care Teams Instructor Modeling Relationship Specialty Start Date End Date Brittnee Hanna MD [address] [place] [phone] PCP - General Family Medicine 08/17/18 Di Hyde, ShabbirD [address] [place] [phone] Pharmacist Internal Medicine 01/06/23 08/31/24 Martina aMncia OD [address] [place] [address] Optometry 07/26/24 Allyson Armando [address] [place] [address] [address] [place] [address] Cardiology 01/03/25 Donna Sutton Maintenance Shop ClerkGravity Prospecting Observer 05/06/24 Bety Benson NP [facility] Endocrinology Endocrinology 11/04/24 documented as of this encounter
--- OUTSIDE RECORDS SUMMARY | 2025-04-26 15:19 | XMS_ITS | Encounter Summary ---
Author Organization [employer] Address [address] [facility] 7t [place] [address] Care Team Providers Care Campus Coordinator Name Role Phone Brittnee Hanna MD Primary Care Provider [phone]- [phone] GavinoMartina OD Unavailable [phone] Allyson Armando Unavailable Encounter Details Date Type Department Care Team (Latest Contact Info) Description 04/26/2025 Travel Social History Tobacco Use Types Packs/Day [...] AM EDT documented as of this encounter Functional Status * Over the past 2 weeks, how often have you been bothered by any of the following problems? Question Answer Date of Assessment Author Patient Health Questionnaire -2 Score 5 04/26/2025 11:40 AM EDT Juliann Jeffries MA * Little interest or pleasure in doing things Answer Date of Assessment Author Nearly every day 04/26/2025 11:40 AM EDT Juliann Jeffries MA * Feeling down, depressed, or hopeless Answer Date of Assessment Author More than half the days 04/26/2025 11:40 AM EDT Juliann Jeffries MA * Trouble falling or staying asleep, or sleeping too much Answer Date of Assessment Author Nearly every day 04/26/2025 11:40 AM Juliann Ford MA * Feeling tired or having little energy Answer Date of Assessment Author Nearly every day 04/26/2025 11:40 AM Juliann Ford MA * Poor appetite or overeating Answer [...] Author Not at all 04/26/2025 11:40 AM EDT Juliann Jeffries MA * Thoughts that you would be better off or hurting yourself in some way Answer Date of Assessment Author Not at all 04/26/2025 11:40 AM Juliann Ford MA * Patient Health Questionnaire-9 Score Answer Date of Assessment Author 17 04/26/2025 11:40 AM EDT Juliann Jeffries MA * How difficult have these problems made it for you to do your work, take care of things at home, or get along with other people? Answer Date of Assessment Author Somewhat difficult 04/26/2025 11:40 AM EDT Juliann Crowley MA * Over the last 2 weeks, [...] to sit still 0 04/26/2025 11:41 AM CHONGT Juliann Jeffries MA Becoming easily annoyed or irritable 0 04/26/2025 11:41 AM EDT Juliann Jeffries MA Feeling afraid as if somethi ng awful might happen 0 04/26/2025 11:41 AM EDT Juliann Jeffries MA JEREMIAS-7 Total Score 6 04/26/2025 11:41 AM Juliann Ford MA documented as of this encounter Plan of Treatment Not on file documented as of this encounter Goals Goal Patient Goal Type Associated Problems Recent Progress Patient-Stated? Author Blood Pressure < 140/90 Blood Pressure 140/90(2024 11:38 AM EDT) No Di Meyers, Bo Hemoglobin A1c < 7 Result Component 9.4( 5 12:19 PM EDT) No Di Meyers, Bo documented as of this encounter Visit Diagnoses Not on filedocumented in this encounter Additional Health Concerns Assessment Noted Time PHQ-9 Depression Total Score: 17 025 11:40 AM EDT documented as of this encounter Care Teams Campus Coordinator Relationship Specialty Start Date End Date Brittnee Hanna MD [address] [place] [address] PCP - General Family Medicine 08/17/18 Martina Mancia OD [address] [place] [address] Optometry 07/26/24 Allyson Armando [address] [place] [address] 3rd [place] [address] Cardiology 01/03/25 Donna Sutton Assistant Office ManagerGeological Engineer 05/06/24 Bety Benson NP [facility] Endocrinology Endocrinology 11/04/24 documented as of this encounter
--- OUTSIDE RECORDS SUMMARY | 2025-04-26 15:19 | XMS_ITS | Encounter Summary ---
Author Organization [employer] Address [address] [facility] 7t [place] [address] Care Team Providers Care Snow Removal/Plowing Name Role Phone Brittnee Hanna MD Primary Care Provider [phone]- [phone] Tan Mancian OD Unavailable [phone] PrabhaAllyson Unavailable Encounter Details Date Type Department Care Team ([facility] st Contact Info) Description 03/13/2025 Telephone [facility] [address] [place], [place] [phone] Brittnee Hanna MD [address] [place] [address] Social History Tobacco Use Types Packs/Day Years [...] Blood Pressure 140/90(2024 11:38 AM EDT) No Piers-Gambl e, Di, PharmD Hemoglobin A1c < 7 Result Component 9.4( 12:19 PM EDT) No Piers-Gambl e, Di, PharmD documented as of this encounter Visit Diagnoses Not on filedocumented in this encounter Additional Health Concerns Assessment Noted Time PHQ-9 Depression Total Score: 15 024 10:35 AM EDT documented as of this encounter Care Teams Snow Removal/Plowing Relationship Specialty Start Date End Date Brittnee Hanna MD [address] [place] [address] PCP - General Family Medicine 08/17/18 Martina Mancia OD [address] [place] [address] Optometry 07/26/24 Allyson Armando [address] 3rd [place] [address] Cardiology 01/03/25 Donna Sutton Wholesale Account ManagerSurvival Specialist 05/06/24 Bety Benson NP [facility] Endocrinology Endocrinology 11/04/24 documented as of this encounter
--- OUTSIDE RECORDS SUMMARY | 2025-04-26 15:19 | XMS_ITS | Encounter Summary ---
Author Organization [employer] Address [address] [facility] 7t [place] [address] Care Team Providers Care Pipefitter Helper Name Role Phone Brittnee Hanna MD Primary Care Provider [phone]- [phone] Tan Mancian OD Unavailable Allyson Armando Unavailable Reason for Visit * Reason Onset Date Comments chart prep 04/25/2025 Encounter Details Date Type Department Care Team ([facility] st Contact Info) Description 04/25/[address] [facility] MEDICINE [address] [place] [address] Brittnee Hanna MD [address] [place] [address] chart prep Social History Tobacco Use Types Packs/Day Years [...] encounter Miscellaneous Notes * Telephone Encounter - Coco Moraes [place] - 04/25/2025 12:35 PM EDT Chart Prep Labs: done Images: done Referrals: not applicable Vaccines due: Covid, Flu, RSV, and Zoster Screenings: not applicable Overdue care gaps: A1c, Glucose, SDOH, PHQ-9, JEREMIAS-7, and Oral health screening documented in this encounter Plan of Treatment [...] documented as of this encounter Care Teams Pipefitter Helper Relationship Specialty Start Date End Date Brittnee Hanna MD [address] [place] [address] PCP - General Family Medicine 08/17/18 Martina Mancia OD [address] [place] [address] Optometry 07/26/[address] 3rd [place] [address] Cardiology 01/03/25 Donna Sutton Oyster CullerField Hockey And Lacrosse Coach 05/06/24 Bety Benson NP [facility] Endocrinology Endocrinology 11/04/24 documented as of this encounter
--- OUTSIDE RECORDS SUMMARY | 2025-04-26 15:19 | XMS_ITS | Encounter Summary ---
Author Organization [employer] Address [address] [facility] 7t [place] [address] Care Team Providers Care Finishing Machine Operator Name Role Phone Brittnee Hanna MD Primary Care Provider [phone]- [phone] Di Hyde PharmD Unavailable Martina Mancia OD Unavailable Prabha, Allyson Unavailable Encounter Details Date Type Department Care Team (Late st Contact Info) Description 12/17/2022 Abstract [facility] MEDICINE [address] [place] [address] Brittnee Hanna MD [address] [place] [address] Social History Tobacco Use Types Packs/Day Years [...] documented as of this encounter Care Teams Finishing Machine Operator Relationship Specialty Start Date End Date Brittnee Hanna MD [address] [place] [address] PCP - General Family Medicine 08/17/18 iD Hyde PharmD [address] [place] [address] Pharmacist Internal Medicine 01/06/23 08/31/24 Martina Mancia OD [address] [place] [address] Optometry 07/26/24 Allyson Armando [address] [place] [address] Drive 3rd [place] [address] Cardiology 01/03/25 Donna Sutton Feller OperatorTool Honing Machine Set Up Operator 05/06/24 Bety Benson NP [facility] Endocrinology Endocrinology 11/04/24 documented as of this encounter
--- OUTSIDE RECORDS SUMMARY | 2025-04-26 15:20 | XMS_ITS | Encounter Summary ---
Author Organization [employer] Address [address] [facility] 7t [place] [address] Care Team Providers Care Ship Boat Or Barge Mate Name Role Phone Brittnee Hanna MD Primary Care Provider +1- [phone] Martina Mancia OD Unavailable [phone] Allyson Armando Unavailable Encounter Details Date Type Department Care Team ([facility] Contact Info) Description 11/01/2024 Orders Only [facility] MEDICINE [address] [place] [address] Nguyen Orourke MD [address] [place] [address] Type 2 diabetes mellitus with other circulatory complication, with long-term current use of insulin ([facility]) Social History Tobacco Use Types [...] complication, with long-term current use of insulin ([facility]) documented in this encounter Additional Health Concerns Assessment Noted Time PHQ-9 Depression Total Score: 15 024 10:35 AM EDT documented as of this encounter Care Teams Ship Boat Or Barge Mate Relationship Specialty Start Date End Date Brittnee Hanna MD [address] [place] [address] PCP - General Family Medicine 08/17/18 Martina Mancia OD [address] [place] [address] Optometry 07/26/24 Allyson Armando [address] [place] [address] Drive 3rd [place] [address] Cardiology 01/03/25 Donna Sutton Automotive Fuel Injection ServicerRight Of Way Appraiser 05/06/24 Bety Benson NP [facility] Endocrinology Endocrinology 11/04/24 documented as of this encounter
--- OUTSIDE RECORDS SUMMARY | 2025-04-26 15:20 | XMS_ITS | Encounter Summary ---
Author Organization [employer] Address [address] [place] [address] 7t [place] [address] Care Team Providers Care Court Messenger Name Role Phone Brittnee Hanna MD Primary Care Provider [phone]- [phone] Di Hyde PharmD Unavailable Martina Mancia OD Unavailable [phone] Adolfo Armandon Unavailable Reason for Visit * Reason Comments Med Refill Encounter Details Date Type Department Care Team ([facility] st Contact Info) Description 05/12/2023 Refill [facility] [address] [place], [place] [phone] Cipriano Campa MD [address] [place] [address] Type 2 diabetes mellitus with other circulatory complication, with long-term current use of insulin ([facility]) Social History Tobacco Use Types Packs/Day [...] Component 9.4(04/26/2025 12:19 PM EDT) No Di Hyde, PharmD documented as of this encounter Visit Diagnoses Diagnosis Type 2 diabetes mellitus with other circulatory complication, with long-term current use of insulin ([facility]) documented in this encounter Additional Health Concerns Assessment Noted Time PHQ-9 Depression Total Score: 21 01/08/ 023 9:47 AM EDT documented as of this encounter Care Teams Court Messenger Relationship Specialty Start Date End Date Brittnee Hanna MD [address] [place] [address] PCP - General Family Medicine 08/17/18 Di Hyde, PharmD [address] [place] [address] Pharmacist Internal Medicine 01/06/23 08/31/24 Martina Mancia OD [address] [place] [address] Optometry 07/26/24 Allyson Armando [address] [place] [address] 3rd [place] [address] Cardiology 01/03/25 Donna Sutton Act English TutorViscose Cellar Charge Hand 05/06/24 Bety Benson NP [facility] Endocrinology Endocrinology 11/04/24 documented as of this encounter
--- OUTSIDE RECORDS SUMMARY | 2025-04-26 15:20 | XMS_ITS | Encounter Summary ---
Author Organization [employer] Address [address] 7t [place] [address] Care Team Providers Care 3D Designer Name Role Phone Brittnee Hanna MD Primary Care Provider [phone]- [phone] Di Hyde PharmD Unavailable [phone] Martina Mancia OD Unavailable [phone] Prabha, Allyson Unavailable Encounter Details Date Type Department Care Team (Late st Contact Info) Description 05/24/2024 Orders Only [facility] [address] [place] [address] Brittnee Hanna MD 230 [place], [place] [phone] Social History Tobacco Use Types Packs/Day Years [...] documented as of this encounter Care Teams 3D Designer Relationship Specialty Start Date End Date Brittnee Hanna MD 230 [place] [address] PCP - General Family Medicine 08/17/18 Di Hyde, PharmD [address] [place] [address] Pharmacist Internal Medicine 01/06/23 08/31/24 Martina Mancia OD [address] [place] [address] Optometry 07/26/24 Allyson Armando [address] 3rd [place] [address] Cardiology 01/03/25 Donna Sutton Nc MachinistAngle Shear Set Up Operator 05/06/24 Bety Benson, SPOTTER DRIVER [facility] Endocrinology Endocrinology 11/04/24 documented as of this encounter
--- OUTSIDE RECORDS SUMMARY | 2025-04-26 15:20 | XMS_ITS | Encounter Summary ---
Author Organization [employer] Address [address] [facility] 7t [place] [address] Care Team Providers Care Mouse Breeder Name Role Phone Brittnee Hanna MD Primary Care Provider [phone]- [phone] Tan Mancian OD Unavailable [phone] PrabhaAllyson Unavailable Encounter Details Date Type Department Care Team ([facility] st Contact Info) Description 02/14/2025 Telephone [facility] [address] [place], [place] [phone] Brittnee Hanna MD [address] [place] [address] Social History Tobacco Use Types Packs/Day Years Used Date Smoking Tobacco: Former Cigarettes Passive Smoke Exposure: Current Smokeless Tobacco: Never Depression Answer Date Recorded Patient Health Questionnaire-9 Score 15 04/07/2024 Patient Health Questionnaire-9 Score 15 04/07/2024 Last PHQ-9: Questionnaire Data Not on file 0 04/07/2024 Housing Stability Answer Date Recorded What is your housing situation today? I have farncisco jones 12/30/[address] you [...] documented as of this encounter Care Teams Mouse Breeder Relationship Specialty Start Date End Date Brittnee Hanna MD [address] [place] [address] PCP - General Family Medicine 08/17/18 Martina Mancia OD [address] [place] [address] Optometry 07/26/24 Allyson Armando [address] 3rd [place] [address] Cardiology 01/03/25 Donna Sutton Cap BlockerFood And Beverage Associate 05/06/24 Bety Benson NP [facility] Endocrinology Endocrinology 11/04/24 documented as of this encounter
--- OUTSIDE RECORDS SUMMARY | 2025-04-26 15:20 | XMS_ITS | Encounter Summary ---
Author Organization [employer] Address [address] [facility] 7t [place] [address] Care Team Providers Care Cloth Drier Name Role Phone Brittnee Hanna MD Primary Care Provider [phone]- [phone] Di Hyde PharmD Unavailable Martina Mancia OD Unavailable Prabha, Allyson Unavailable Encounter Details Date Type Department Care Team (Late st Contact Info) Description 09/22/2022 Abstract [facility] 230 [place] [address] Brittnee Hanna MD 230 [place] [address] Social History Tobacco Use Types Packs/Day Years [...] this encounter Results * (ABNORMAL) TSH (06/05/2022) Pathologist [facility] TSH 1.59(A) 4.00 - 5.40 mIU/L Blood Venous blood specimen / Unknown Result [facility] Provider LAB BLOOD ORDERABLES Emelia l Result * Basic Metabolic Panel (06/05/2022) Pathologist [facility] Creatinine 1.0 0.5 - 1.1 mg/dL Blood Venous blood specimen / Unknown Result [facility] Provider LAB BLOOD ORDERABLES Emelia l Result * (ABNORMAL) Lipid Panel, Standard (06/05/2022) Pathologist [facility] Triglycerides 163(A) 40 - 160 mg/dL Cholesterol 209(A) 0 - 200 mg/dL HDL Cholesterol 70 35 - 70 mg/dL LDL Cholesterol 111 mg/dL Blood Venous blood specimen / Unknown Result [facility] Provider LAB BLOOD ORDERABLES Emelia l Result * Pap Smear (05/16/2022 12:00 AM EDT) Swab Result [facility] Provider LAB CYTOLOGY ORDERABLES F inal Result [facility] * Colonoscopy (08/21/2020) Pathologist [facility] Colonoscopy hyperplastic polyp Dr. Olivarez Result [facility] Provider HEALTH MAINTENANCE Final Result * HIV-1 antibody, EIA (04/25/2019) Pathologist [facility] External HIV-1 Antibody Negative Blood Venous blood specimen / Unknown Historical Provider LAB BLOOD ORDERABLES Emelia l Result * Mammography (06/14/2018) Mammogram normal Anatomical Region Laterality Modality Other Historical Provider HEALTH MAINTENANCE Final Result * Hepatitis [...] as of this encounter Care Teams Cloth Drier Relationship Specialty Start Date End Date Brittnee Hanna MD [address] [place] [address] PCP - General Family Medicine 08/17/18 Di Hyde PharmD [address] [place] [address] Pharmacist Internal Medicine 01/06/23 08/31/24 Martina Mancia OD [address] [place] [address] Optometry 07/26/24 Allyson Armando [address] 3rd [place] [address] Cardiology 01/03/25 Donna Sutton Poleyard SupervisorMarketing Financial Analyst 05/06/24 Bety Benson NP [facility] Endocrinology Endocrinology 11/04/24 documented as of this encounter
--- OUTSIDE RECORDS SUMMARY | 2025-04-26 15:20 | XMS_ITS | Encounter Summary ---
Author Organization [employer] Address [address] [facility] 7t [place] [address] Care Team Providers Care Battery Stacker Name Role Phone Brittnee Hanna MD Primary Care Provider [phone]- [phone] Di Hyde PharmD Unavailable Martina Mancia OD Unavailable Allyson Armando Unavailable Reason for Visit * Reason Onset Date Comments Appointment Request 07/18/2024 Encounter Details Date Type Department Care Team ([facility] st Contact Info) Description 07/18/2024 Telephone [facility] 230 [place], [place] [phone] Brittnee Hanna MD 230 [place] [address] Appointment Request Social History Tobacco Use Types [...] documented as of this encounter Care Teams Battery Stacker Relationship Specialty Start Date End Date Brittnee Hanna MD [address] [place] [address] PCP - General Family Medicine 08/17/18 Di Hyde, Bo [address] [place] [address] Pharmacist Internal Medicine 01/06/23 08/31/24 Martina Mancia OD [address] [place] [address] Optometry 07/26/24 Allyson Armando [address] [place] [address] 3rd [place] [address] Cardiology 01/03/25 Donna Sutton Sourcing CoordinatorSkein Inspector 05/06/24 Bety Benson NP [facility] Endocrinology Endocrinology 11/04/24 documented as of this encounter
--- OUTSIDE RECORDS SUMMARY | 2025-04-26 15:20 | XMS_ITS | Encounter Summary ---
Author Organization [employer] Address [address] [place] [address] 7t [place] [address] Care Team Providers Care Systems Software Engineer Name Role Phone Brittnee Hanna MD Primary Care Provider [phone]- [phone] Di Hyde PharmD Unavailable Martina Mancia OD Unavailable Adolfo Armandon Unavailable Reason for Visit * Reason Onset Date Comments triage 07/21/2022 Encounter Details Date Type Department Care Team ([facility] st Contact Info) Description 07/21/2022 Telephone [facility] 230 [place], [place] [phone] Brittnee Hanna MD 230 [place] [address] triage Social History Tobacco Use Types Packs/Day [...] and depression since losing MH services with [facility]. Per pt has not had any follow up with therapist or psychiatrist. Was supposed to have an appt on 06/15 but when called to r/s was never answered. Has been without meds. Per pt denies any SI/HI. Just increased anxiety. Pt advised that no appts in clinic tomorrow. Pt to come into [facility] tomorrow to speak with on site [facility] clinician and see if [facility] provider (advised cannot guarantee Dr. Hanna) can [...] accepted this outcome Please contact pt at [phone] speaks Armenian documented in this encounter Plan of Treatment Not on file documented as of this encounter Visit Diagnoses Not on filedocumented in this encounter Care Teams Systems Software Engineer Relationship Specialty Start Date End Date Brittnee Hanna MD [address] [place] [address] PCP - General Family Medicine 08/17/18 Di Hyde PharmD [address] [place] [address] Pharmacist Internal Medicine 01/06/23 08/31/24 Martina Mancia OD [address] [place] [address] Optometry 07/26/24 Allyson Armando [address] [place] [address] 3rd [place] [address] Cardiology 01/03/25 Donna Sutton Filling Machine OperatorAssistant Mechanic 05/06/24 Bety Benson, [facility] Endocrinology Endocrinology 11/04/24 documented as of this encounter
--- OUTSIDE RECORDS SUMMARY | 2025-04-26 15:20 | XMS_ITS | Encounter Summary ---
Author Organization [employer] Address [address] [facility] 7t [place] [address] Care Team Providers Care Lens Hardener Name Role Phone Brittnee Hanna MD Primary Care Provider +1- [phone] Di Hyde PharmD Unavailable [phone] Martina Mancia OD Unavailable Prabha Allyson Unavailable Encounter Details Date Type Department Care Team (Late st Contact Info) Description 08/25/2022 Orders Only [facility] [address] [place] [address] Jeana Vital LPN Social History Tobacco Use [...] Bilirubin, Total 0.3 0.0 - 1.0 mg/dL [facility] Bilirubin, Direct 0.1 0.0 - 0.5 mg/dL [facility] Aspartate Amino Transferase 18 5 - 31 U/L [facility] Alanine Aminotransferase 33(H) 0 - 31 U/L [facility] Total Protein 7.4 6.5 - 8.0 g/dL [facility] Albumin Level 4.3 3.5 - 5.0 g/dL [facility] Alkaline Phosphatase 142(H) 39 - 117 U/L [facility] 07/21/2023 12:4 7 PM EST 07/21/2023 3:59 PM EST us Brittnee Hanna MD LAB BLOOD ORDERABLES Final Result [facility] [address] [place] [address] [phone] documented in this encounter Visit Diagnoses Not on filedocumented in this encounter Care Teams Lens Hardener Relationship Specialty Start Date End Date Brittnee Hanna MD 230 [place] [address] PCP - General Family Medicine 08/17/18 Di Hyde, ShabbirD [address] [place] [address] Pharmacist Internal Medicine 01/06/23 08/31/24 Martina Mancia OD [address] [place] [address] Optometry 07/26/24 Allyson Armando [address] 3rd [place] [address] Cardiology 01/03/25 Donna Sutton Sealer AircraftClean Room Technician 05/06/24 Bety Benson NP [facility] Endocrinology Endocrinology 11/04/24 documented as of this encounter
--- OUTSIDE RECORDS SUMMARY | 2025-04-26 15:20 | XMS_ITS | Encounter Summary ---
Author Organization [employer] Address [address] [facility] 7t [place] [address] Care Team Providers Care Director Of Hotel Name Role Phone Brittnee Hanna MD Primary Care Provider +1- [phone] Di Hyde PharmD Unavailable Martina Mancia OD Unavailable Adolfo Armandon Unavailable Reason for Visit * Reason Comments Med Refill Encounter Details Date Type Department Care Team ([facility] st Contact Info) Description 07/21/2023 Refill [facility] [address] [place], [place] [phone] Brittnee Hanna MD [address] [place] [address] Mild intermittent asthma without complication Social History [...] of this encounter Care Teams Director Of Hotel Relationship Specialty Start Date End Date Brittnee Hanna MD [address] [place] [address] PCP - General Family Medicine 08/17/18 Di Hyde, PharmD [address] [place] [address] Pharmacist Internal Medicine 01/06/23 08/31/24 Martina Mancia OD [address] [place] [address] Optometry 07/26/24 Allyson Amrando [address] 3rd [place] [address] Cardiology 01/03/25 Donna Sutton Hot Die Press OperatorSolder Cream Maker 05/06/24 Bety Benson NP [facility] Endocrinology Endocrinology 11/04/24 documented as of this encounter
--- OUTSIDE RECORDS SUMMARY | 2025-04-26 15:20 | XMS_ITS | Encounter Summary ---
Author Organization [employer] Address [address] [facility] 7t [place] [address] Care Team Providers Care Pilot Boat Operator Name Role Phone Brittnee Hanna MD Primary Care Provider +1- [phone] Di Hyde PharmD Unavailable Martina Mancia OD Unavailable Prabha, Allyson Unavailable Encounter Details Date Type Department Care Team (Late st Contact Info) Description 04/27/2024 Abstract [facility] [address] [place] [address] Brittnee Hanna MD 230 [place], [place] [phone] Social History Tobacco Use Types Packs/Day Years [...] documented as of this encounter Care Teams Pilot Boat Operator Relationship Specialty Start Date End Date Brittnee Hanna MD [address] [place] [address] PCP - General Family Medicine 08/17/18 Di Hyde, PharmD [address] [place] [address] Pharmacist Internal Medicine 01/06/23 08/31/24 Martina Mancia OD [address] [place] [address] Optometry 07/26/24 Allyson Armando [address] 3rd [place] [address] Cardiology 01/03/25 Donna Sutton Lock PlaterJig Grinder 05/06/24 Bety Benson, VISUAL STYLIST [facility] Endocrinology Endocrinology 11/04/24 documented as of this encounter
== END 2025-04-26 12:11 | disposition home or self-care (01) ==
LOC: HO.HHCL 12:10
PROVIDERS: PCP Family Medicine; Visit Provider Family Medicine
DX: E11.65 Type 2 diabetes mellitus with hyperglycemia (principal); D64.9 Anemia, unspecified; Z79.4 Long term (current) use of insulin
CPT/HCPCS: 36415; 80048; 80061; 80076; 82043; 82570; 82607; 82728; 82746; 83036; 83540; 84443; 85025

== ENCOUNTER 2025-05-23 14:43 | Outpatient (AMB) | payer MEDICAID, SELFPAY ==
--- OUTSIDE RECORDS SUMMARY | 2025-05-19 11:15 | XMS_ITS | Encounter Summary ---
Author Organization [employer] Address [address] [facility] 7 [place] [address] Care Team Providers Care User Interface Artist Name Role Phone Brittnee Hanna MD Primary Care Provider [phone] Martina Mancia OD Unavailable [phone] Allyson Armando Unavailable Reason for Referral * Consultation (Urgent) - Closed Specialty Diagnoses / Procedures Referred By Contac t Referred To Contact Physical Therapy Diagnoses Vertigo Kristina Olea NP [address] [place] [address] Phone: tel: fax: [facility] Physical [facility] [address] [place] [address] Phone: tel: fax: Referral ID Status Reason Start Date Expiration Date V isits Requested Visits Authorized [id number] Closed Specialty Services Required 05/22/2025 05/22/2026 20 20 Reason for Visit * Reason Comments Follow-up Encounter Details Date Type Department Care Team ([facility] st Contact Info) Description 05/19/2025 11:15 AM EDT Office Visit [facility] [address] [place] [address] Kristina Olea NP [address] [place] [address] Type 2 diabetes mellitus with hyperglycemia, with long-term current use of insulin (HCC) (Primary Dx); Vertigo Social History Tobacco Use Types Packs/Day Years Used Date Smoking Tobacco: Former Cigarettes Passive Smoke Exposure: Current Smokeless Tobacco: Never Tobacco Cessation:Counseling Given: Not Answered Depression Answer Date Recorded Patient Health Questionnaire-9 [...] Sign Reading Time Taken Comments Blood Pressure 122/80 05/19/2025 11:16 AM EDT Pulse 88 05/19/2025 11:16 AM EDT Temperature 36.7 C (98.1 F) 05/19/2025 11:16 AM EDT Respiratory Rate 18 05/19/2025 11:16 AM EDT Oxygen Saturation - - Inhaled Oxygen Concentration - - Weight 55.3 kg (122 lb) 05/19/2025 11:16 AM EDT Height 157.5 cm (5' 2 ) 05/19/2025 11:16 AM EDT Body Mass Index 22.31 05/19/2025 11:16 AM EDT documented in this encounter Progress Notes * Kristina Olea NP - 05/19/2025 11:15 AM EDT Cynthai Okeefe is a 59 y.o. female who presents to the office for Chief Complaint Patient presents with Follow-up Problem List[1] Medical History[2] Allergies[3] Cynthia Okeefe, 59-year-old female - Vertigo episodes triggered by head movement, described as spinning sensation - Episodes last up to an hour, no improvement with rest, slight relief when sitting still - Falls occur during severe dizziness, not limited to one side - Reports double vision during vertigo episodes - Reports chest pain and regular but fast heartbeat associated with vertigo - Dizziness occurs with physical activity, especially when walking quickly or climbing stairs - Reports ringing in ears during vertigo episodes - No prior treatment with medication or physical therapy for vertigo - Last cardiology visit in April - Under endocrinology care for elevated blood sugar - Did not take insulin or eat breakfast prior to encounter - Hemoglobin A1c previously reported as 9.4, current value 9.9 - Fasting blood sugar reported as 276 Review of Systems Constitutional: Negative for activity change and appetite change. Neurological: Positive for dizziness and headaches. BP 122/80 (BP Location: Left arm, Patient Position: Sitting, BP Cuff Size: Adult) Pulse 88 Temp98.1 ??F (36.7 ??C) (Oral) Resp 18 Ht 5' 2 (1.575 m) Wt 122 lb (55.3 kg) BMI 22.31 kg/m?? Physical Exam Vitals reviewed. HENT: Head: Normocephalic and atraumatic. Nose: Nose normal. Eyes: Conjunctiva/sclera: Conjunctivae normal. Cardiovascular: Rate and Rhythm: Normal rate and regular rhythm. Pulmonary: Effort: Pulmonary effort is normal. Breath sounds: Normal breath sounds. Musculoskeletal: Cervical back: Normal range of motion and neck supple. Neurological: General: No focal deficit present. Mental Status: She is alert and oriented to person, place, and time. Cranial Nerves: Cranial nerves 2-12 are intact. Motor: No tremor or pronator drift. Comments: End beat horizontal nystagmus - HEENT: Nystagmus observed when eyes trace a finger, consistent with vertigo. - NEUROLOGIC: Cvzjvq-js-blvi test performed; no abnormalities noted. Rapid alternating movements (ASH) test performed; no abnormalities noted. Results: Office Visit on 05/19/2025 Component Date Value Ref Range Status Glucose Blood, POC 05/19/2025 276 (A) 60 - 200 mg/dL Final Office Visit on 04/26/2025 Component Date Value Ref Range Status Hemoglobin A1C 04/26/2025 9.9 (A) 4.0 - 5.7 % Final QC Media Lot # 04/26/2025 [id number] Final Lot# Expiration Date 04/26/2025 [id number] Final Glucose Blood, POC 04/26/2025 152 60 - 200 mg/dL Final QC Media Lot # 04/26/2025 [id number] Final Lot# Expiration Date 04/26/2025 [id number] Final Creatinine, Urine 04/26/2025 103.45 mg/dL Final Microalbumin Urine 04/26/2025 9.0 mg/L Final Microalbum Creatinine Ratio Ur 04/26/2025 8.6 <30 ug/mg cr Final Albumin/Creatinine Ratio Reference Ranges: Normal: < 30 ug/mg creatinine Microalbuminuria: 30 - 300 ug/mg creatinineClinical Albuminuria: > 300 ug/mg creatinine Bilirubin, Total 04/26/2025 0.3 0.0 - 1.0 mg/dL Final Bilirubin, Direct 04/26/2025 0.1 0.0 - 0.5 mg/dL Final Aspartate Amino Transferase 04/26/2025 32 (H) 5 - 31 U/L Final Alanine Aminotransferase 04/26/2025 41 (H) 0 - 31 U/L Final Total Protein 04/26/2025 7.6 6.5 - 8.0 g/dL Final Albumin Level 04/26/2025 4.4 3.5 - 5.0 g/dL Final Alkaline Phosphatase 04/26/2025 114 39 - 117 U/L Final Triglycerides 04/26/2025 220 (H) <150 mg/dL Final Desirable Triglyceride: less than 150 mg/dLBorderline High Triglyceride 150-199 mg/dLHigh Triglyceride: 200-499 mg/dLVery High Triglyceride: greater than or equal to 5OO mg/dL Cholesterol 04/26/2025 232 (H) <200 mg/dL Final Desirable Cholesterol: less than 200 mg/dLBorderline High Cholesterol: 200-239 mg/dLHigh Cholesterol: greater than 239 mg/dL LDL Cholesterol Calculated 04/26/2025 140 (H) <100 mg/dL Final Desirable LDL: less than 100 mg/dLNear Optimal/Above Optimal LDL: 110-129 mg/dLBorderline High LDL:130-159 mg/dLHigh LDL: 160-189 mg/dLVery High LDL: greater than or equal to 190 mg/dL HDL Cholesterol 04/26/2025 48 >40 mg/dL Final Desirable HDL: greater than 40 mg/dL Note: This HDL assay may give artificially low results in patients with liver disease. Hemoglobin A1c 04/26/2025 9.4 (H) <6.0 % Final Hemoglobin A1C Reference Range Adults: 4.8 - 6.0 % Non diabetic: < 6.0 % Goal: < 7.0 %Additional Action Suggested: > 8.0 %Note: Hemoglobin A1c results are invalid for patients with abnormal amounts of HbF. Blood transfusions may impact the HbA1c concentration in the patient sample. Estimated Average Glucose 04/26/2025 223 mg/dL Final eAG = Estimated average glucose which is %A1C expressed asaverage glucose, using the formula of the R2I-UfiadddXoescjv Glucose study (ADAG), Diabetes Care, Vol.31,#8,2007 Sodium 04/26/2025 141 135 - 145 mmol/L Final Potassium 04/26/2025 4.3 3.3 - 5.1 mmol/L Final Chloride 04/26/2025 107 96 - 108 mmol/L Final Carbon Dioxide 04/26/2025 28 22 - 29 mmol/L Final Anion Gap 04/26/2025 10 (L) 12 - 20 Final Urea Nitrogen (BUN) 04/26/2025 14 9 - 16 mg/dL Final Creatinine, Serum 04/26/2025 0.96 0.5 - 1.4 mg/dL Final Estimated Glomerular Filt Rate 04/26/2025 59 Final Chronic Kidney Disease: Estimated GFR < 60 mL/min/1.52l0Xjfusk Kidney Disease: Estimated GFR < 15 mL/min/1.73m2 Glucose 04/26/2025 120 (H) 60 - 115 mg/dL Final Calcium 04/26/2025 9.9 8.4 - 10.2 mg/dL Final White Blood Count 04/26/2025 7.8 4.8 - 10.8 X10*3/uL Final Red Blood Count 04/26/2025 4.53 4.20 - 5.50 X10*6/uL Final Hemoglobin 04/26/2025 13.2 12.0 - 16.0 g/dl Final Hematocrit 04/26/2025 40.3 37.0 - 47.0 % Final Mean Corpuscular Volume 04/26/2025 89.0 80.0 - 98.0 fL Final Mean Corpuscular Hemoglobin 04/26/2025 29.1 27.0 - 33.0 pg Final Mean Corpuscular HGB Conc 04/26/2025 32.8 31.0 - 35.0 g/dl Final Red Cell Distribution Width 04/26/2025 13.1 11.0 - 16.0 % Final Platelet Count 04/26/2025 293 160 - 400 X10*3/uL Final Mean Platelet Volume 04/26/2025 11.2 9.4 - 12.3 fL Final Neutrophils Percent Auto 04/26/2025 60.8 45 - 73 % Final Imm Gran Pct Auto 04/26/2025 0.4 0.0 - 0.4 % Final Lymphocytes Percent Auto 04/26/2025 22.6 20 - 40 % Final Monocytes Percent Auto 04/26/2025 6.4 2 - 11 % Final Eosinophils Percent Auto 04/26/2025 9.4 (H) 0 - 4 % Final Basophils Percent Auto 04/26/2025 0.4 0 - 2 % Final NRBC Pct Auto 04/26/2025 0.0 0.0 - 0.2 /100WBC Final Neutrophils Absolute Auto 04/26/2025 4.7 2.0 - 8.3 x10*3/uL Final Imm Gran Abs Auto 04/26/2025 0.03 0.00 - 0.03 X10*3/uL Final Lymphocytes Absolute Auto 04/26/2025 1.8 1.2 - 4.9 X10*3/uL Final Monocytes Absolute Auto 04/26/2025 0.5 0.1 - 1.2 X10*3/uL Final Eosinophils Absolute Auto 04/26/2025 0.7 (H) 0.0 - 0.4 X10*3/uL Final Basophils Absolute Auto 04/26/2025 0.0 0.0 - 0.2 X10*3/uL Final NRBC Abs Auto 04/26/2025 0.000 0.0 - 0.012 X10*3/uL Final Ferritin 04/26/2025 105 10 - 250 ng/mL Final TSH reflex Free T4 04/26/2025 0.97 0.32 - 4.0 uIU/mL Final Iron 04/26/2025 69 30 - 160 mcg/dL Final Total Iron Binding Capacity 04/26/2025 258 228 - 428 mcg/dL Final Percent Iron Saturation 04/26/2025 27 15 - 50 % Final Unsaturated Iron Binding 04/26/2025 189 ug/dL Final Vitamin B12 04/26/2025 336 200 - 900 pg/mL Final NORMAL 200-900 PG/ML INDETERMINATE 160-199 PG/ML DEFICIENT < 160 PG/ML Folate 04/26/2025 6.9 > or = 4.0 ng/mL Final Reference Values:> or = 4.0 ng/mL< 4.0 ng/mL suggests folate deficiency Methotrexate, aminopterin and folinic acid(leucovorin) are chemotherapeutic agents whose molecularstructures are similar to folate; therefore, the Architectfolate assay cannot be used for patients using these drugs. Assessment & Plan Type 2 diabetes mellitus with hyperglycemia, with long-term current use of insulin ([facility]) Orders: POCT Glucose Vertigo Orders: Referral to Physical Therapy; Future Assessment & Plan Type 2 diabetes mellitus with hyperglycemia, with long-term current use of insulin ([facility]): - Hyperglycemia likely contributing to headaches. Hemoglobin A1c is elevated. - Use insulin as prescribed. No insulin refill needed at this time. Vertigo: - Vertigo confirmed by irregularities in ocular movement during examination. Episodes associated with head movement, falls, and regular tachycardia. No evidence of double vision or arterial stenosis as a cause. Differential includes inner ear positional etiology. - Referred urgently to physical therapy for positional maneuvers targeting inner ear. Prescribed anti-vertigo medication for symptomatic relief, to be taken up to three times daily as needed for dizziness. Advised to discontinue medication if adverse effects occur or if it does not provide relief. - Risks and side effects: Discussed potential for fatigue and drowsiness with anti-vertigo medication. Advised that medication does not cure vertigo, only provides symptom relief. Consent given for prescription. Prescription - Vestibular suppressant for dizziness, take as needed up to 3 times daily; may cause fatigue, drowsiness, can worsen blood sugar and cause dizziness Appointments - Urgent referral to physical therapy for positional maneuvers; clinic to call promptly for scheduling Current Medications[4] Based on our discussion, I have outlined the following instructions for you: - Keep using your insulin exactly as you have been told. You do not need a new supply right now. - Take the anti-vertigo medication up to three times a day if you feel dizzy. If you feel tired or sleepy from the medication, or if it does not help your dizziness, stop taking it. Remember, this medication will only help with symptoms and will not cure vertigo. Next appointment(s): - Urgent referral to physical therapy for positional maneuvers; clinic to callpromptly for scheduling Thank you again for your visit, and we look forward to supporting you in your journey to better health. This note was drafted using Ambient (AI) technology. The patient/patient's guardian has been informed and has consented to the use of this technology: Yes Visit Conducted in: Georgian Translation by: Provided by [employer] Phone Service ID # [id number] [1] Patient Active Problem List Diagnosis Anemia Chronic kidney disease, stage III (moderate) (CMS/HCC) ([facility]) Asthma-COPD overlap syndrome (CMS/HCC) ([facility]) Chronic sinusitis Coronary artery stenosis Depressive disorder Type 2 diabetes mellitus with hyperglycemia, with long-term current use of insulin ([facility]) Disorder of cardiovascular system Dyslipidemia Elevated levels of transaminase & lactic acid dehydrogenase Essential hypertension Generalized headache Obesity Other specified health status Dizziness Tobacco abuse Mild anxiety Neuropathy Unintentional weight loss Colon cancer screening Vertigo [2] Past Medical History: Diagnosis Date Asthma CAD in [place] artery Diabetes mellitus (HCC) Dyslipidemia Great toe pain, right 12/18/2022 Treated for cellulitis residual acting in joints, differential include Gout. - Will check uric acids. History of diabetic ketoacidosis 02/18/2023 Admitted 03/17/22 for DKA in the setting of acute cystitis. Hypertension Mild intermittent asthma 05/18/2017 -On Advair and Spiriva with questionable compliance. Uses her albuterol regularly. Tobacco dependence [3] Allergies Allergen Reactions Shellfish-Derived Products Swelling Other reaction(s): unspecified Naproxen Other Reaction(s): CAN'T TAKE PER HER APPLIER Penicillin V Other reaction(s): unspecified Penicillins Hives [4] Current Outpatient Medications: acetone, urine, test strip, Use as directed to check for ketones in the urine as needed, Disp: 100 each, Rfl: 0 albuterol (Ventolin HFA) 108 (90 Base) MCG/ACT inhaler, INHALE 2 PUFFS BY MOUTH EVERY 4 HOURS NEEDED FOR WHEEZING OR SHORTNESS OF BREATH, Disp: 18 g, Rfl: 11 albuterol 1.25 MG/3ML nebulizer solution, Take 6 mL (2.5 mg) by nebulization every 4 (four) hours if needed for wheezing., Disp: 75 mL, Rfl: 11 Alcohol Swabs (Alcohol Prep) 70 % pads, USE BEFORE TEST BLOOD SUGAR AND INSULIN, Disp: 100 each, Rfl: 11 amLODIPine (Norvasc) 5 MG tablet, TAKE 1 TABLET BY MOUTH EVERY MORNING, Disp: 90 tablet, Rfl: 3 ARIPiprazole (Abilify) 2 MG tablet, Take 1 tablet by mouth at bedtime, Disp: , Rfl: aspirin (Aspirin Adult Low Strength) 81 MG EC tablet, Take 1 tablet (81 mg) by mouth in the morning., Disp: 90 tablet, Rfl: 3 atorvastatin (Lipitor) 80 MG tablet, TAKE 1 TABLET BY MOUTH AT BEDTIME, Disp: 90 tablet, Rfl: 3 Blood Glucose Monitoring Suppl (Aspects SoftwareStyle [place] Lite) w/Device kit, TEST BLOOD SUGAR FIVE TIMES DAILY DIRECTED, Disp: 1 kit, Rfl: 0 chlorthalidone (Hygroton) 25 MG tablet, TAKE ONE HALF TABLET BY MOUTH ONCE DAILY, Disp: 45 tablet, Rfl: 1 Continuous Blood Gluc Tunnel Kiln Operator (FreeStyle Ric 2 [place]) device, Use as directed, Disp: 1 each, Rfl: 0 Continuous Glucose Sensor (FreeStyle Ric 2 Sensor) [facility], USE DIRECTED TO TEST BLOOD SUGAR CHANGE EVERY 14 DAYS, Disp: 2 each, Rfl: 11 doxepin (SINEquan) 10 MG capsule, TAKE 1 CAPSULE BY MOUTH AT BEDTIME FOR SLEEP, Disp: , Rfl: Dulaglutide 0.75 MG/0.5ML solution auto-injector, Inject under the skin., Disp: , Rfl: Ferrous Sulfate (iron) 325 (65 Fe) MG tablet, TAKE 1 TABLET BY MOUTH EVERY OTHER DAY IN THE MORNING, Disp: 45 tablet, Rfl: 11 fluticasone (Flonase) 50 MCG/ACT nasal spray, 1 spray each nostril daily prn allergies Shake gently. Before first use, prime pump. After use, clean tip and replace cap., Disp: 16 g, Rfl: 2 Fluticasone-Salmeterol (Advair Diskus) 250-50 MCG/ACT aerosol powder , Inhale 250 mg 2 times daily., Disp: 60 each, Rfl: 5 gabapentin (Neurontin) 100 MG capsule, TAKE 1 CAPSULE BY MOUTH TWICE DAILY, Disp: 60 capsule, Rfl: 5 glucagon (Baqsimi Two Pack) 3 MG/DOSE nasal [...] glargine (Lantus SoloStar) 100 UNIT/ML pen, INJECT 42 UNITS SUBCUTANEOUSLY EVERY DAY AT BEDTIME, IF FASTING BLOOD SUGAR IS > 180 INCREASE TO 46 UNITS AFTER 3 DAYS, Disp: 15 mL, Rfl: 3 insulin lispro (HumaLOG) 100 UNIT/ML injection, Administer 18 units daily before each meal, Disp: 15 mL, Rfl: 11 insulin pen needle (Pentips) 32G x 4 mm [facility], Use as instructed, Disp: 100 each, Rfl: 11 isosorbide mononitrate ER (Imdur) 30 MG 24 hr tablet, TAKE 1 TABLET BY MOUTH EVERY MORNING, Disp: 90 tablet, Rfl: 3 lisinopril 20 MG tablet, TAKE 1 TABLET BY MOUTH EVERY MORNING, Disp: 90 tablet, Rfl: 3 loratadine (Claritin) 10 MG tablet, TAKE 1 TABLET BY MOUTH EVERY MORNING FOR ALLERGIES, Disp: 90 tablet, Rfl: 3 meclizine (Antivert) 25 MG tablet, Take 1 tablet (25 mg) by mouth if needed in the morning, at noon, and at bedtime for dizziness for up to 10 days., Disp: 30 tablet, Rfl: 0 metoprolol succinate XL (Toprol-XL) 50 MG 24 hr tablet, Take 1 tablet (50 mg) by mouth in the morning. Do not crush or chew., Disp: 90 tablet, Rfl: 3 OLANZapine (ZyPREXA) 7.5 MG tablet, TAKE 1 TABLET BY MOUTH AT BEDTIME, Disp: 30 tablet, Rfl: 11 prazosin (Minipress) 1 MG capsule, TAKE 1 CAPSULE BY MOUTH AT BEDTIME FOR NIGHTMARES, Disp: , Rfl: sertraline (Zoloft) 25 MG tablet, Take 1 tablet by mouth once daily, Disp: , Rfl: tiotropium (Spiriva HandiHaler) 18 MCG inhalation capsule, Place 1 capsule (18 mcg) into inhaler and inhale in the morning., Disp: 30 capsule, Rfl: 11 TRUEplus Lancets 33G misc, TEST BLOOD SUGAR FIVE TIMES DAILY, Disp: 200 each, Rfl: 11 documented in this encounter Miscellaneous Notes * Assessment & Plan Note - Kristina Olea NP - 05/19/2025 11:15 AM EDTAssociated Problem(s): Type 2 diabetes mellitus with hyperglycemia, with long-term current use of insulin (HCC) Orders: POCT Glucose * Assessment & Plan Note - Kristina Olea NP - 05/19/2025 11:15 AM EDTAssociated Problem(s): Vertigo Orders: Referral to Physical Therapy; Future documented in this encounter Plan of Treatment Scheduled Referrals Name Type Priority Associated Diagnoses Orde r Schedule Referral to Physical Therapy Outpatient Referral Urgent Vertigo Expected: 05/19/2025 (Approximate), Expires: 05/19/2026 documented as of this encounter Goals Goal Patient Goal Type Associated Problems Recent Progress Patient-Stated? Author Blood Pressure < 140/90 Blood Pressure 122/80(2024 11:16 AM EDT) No Bhupendras-Di Chapman, PharmD Hemoglobin A1c < 7 Result Component 9.4( 12:19 PM EDT) No Piers-Gambl Di alfaro, PharmD documented as of this encounter Procedures Procedure Name Priority Date/Time Associated Diagnosis Comments POCT GLUCOSE Routine 05/19/2025 11:17 AM EDT Type 2 diabetes mellitus with hyperglycemia, with long-term current use of insulin (HCC) documented in this encounter Results * (ABNORMAL) POCT Glucose (05/19/2025 11:17 AM EDT) [facility] Glucose Blood, POC 276(A) 60 - 200 mg/dL Blood Capillary blood specimen / Unknown 05/19/2025 11:17 AM EDT Result [facility] Kristina Olea NP POINT OF CARE TEST ENTER/EDIT OR DERABLES Final Result documented in this encounter Visit Diagnoses Diagnosis Type 2 diabetes mellitus with hyperglycemia, with long-term current use of insulin (HCC)- Primary Vertigo Dizziness and giddiness documented in this encounter Additional Health Concerns Assessment Noted Time PHQ-9 Depression Total Score: 17 025 11:40 AM EDT documented as of this encounter Care Teams User Interface Artist Relationship Specialty Start Date End Date Brittnee Hanna MD [address] [place] [address] PCP - General Family Medicine 08/17/18 Martina Mancia OD [address] [place] [address] Optometry 07/26/24 Allyson Armando [address] [place] [address] Cardiology 01/03/25 Donna Sutton Ash Kier BoilerSlab Installer 05/06/24 Bety Benson, [employer]ANNED [employer] Endocrinology Endocrinology 11/04/24 documented as of this encounter
[2025-05-23 14:45] VITALS: BP 114/66; PULSE 91; O2SAT 95; BMI 21.8
--- NOTE | 2025-05-23 14:45 | MHC.OFFVIS ---
Vital Signs 05/23/25 14:45 Height 5 ft 2 in Weight 119 lb 0.794 oz BMI 21.8 BP 114/66 Blood Pressure Location Rt brachial Position Sitting Pulse 91 Pulse Source Pulse Oximeter Pulse Oximetry (%) 95 Oxygen Delivery Method Room Air Intake Visit Reasons: DMT2 Follow-Up Intake Note: Patient present today to follow up on Type 2 Diabetes Mellitus. 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 blood-glucose,mastic floor layer,cont (FreeStyle Ric 3 Cotton) Use daily to monitor blood glucose levels continuously. dulaglutide (Trulicity) 3 mg (0.5 mL) subcut QWEEK empagliflozin (Jardiance) 25 mg PO QAM ferrous sulfate (FeroSul) 325 mg PO Q OTHER DAY flash glucose sensor (FreeStyle Rci 2 Sensor kit) As directed fluticasone propion-salmeterol 250-50 mcg/dose (Advair Diskus) 1 puff inhalation BID gabapentin 100 mg PO BID glucose (Dex4 Glucose Quick Dissolve) 16 grams (4 x 4 gram) PO Q15M PRN ibuprofen 600 mg PO TID PRN insulin degludec (Tresiba FlexTouch U-200 insulin) 40 units subcut BEDTIME insulin lispro 16 units subcut TIDWMEAL isosorbide mononitrate ER 30 mg PO DAILY lancets (TRUEplus Lancets) As directed lisinopril 20 mg PO DAILY loratadine 1 tab PO QAM metoprolol succinate ER 1 tab PO QAM olanzapine 7.5 mg PO BEDTIME pantoprazole (Protonix) 20 mg PO BID pen needle, diabetic (Pentips Pen Needle) As directed prazosin 1 mg PO BEDTIME tiotropium bromide (Spiriva with HandiHaler) 1 cap inhalation DAILY HPI Comments Details: This is a 59-year-old female with a past medical history of type 2 diabetes, depression, CKD stage 3, asthma-COPD, CAD (STEMI 04/15/2014 requiring PCI with JENISE to proximal LAD), decreased LVEF, gastritis, dizziness and falls and tobacco use presenting for diabetic management. 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 Family history of Type I: none Family history of Type 2: parents History of DKA - admitted 03/17/2022 for DKA in the setting of acute cystitis. Hemoglobin a1c 9.4% 04/26/2025 down from 9.9% 04/11/2025 down from 12.7 % on 10/04/24. Reviewed Ric 3+ data for the past 14 days G KS 8.8% Glucose variability 34.4% Very high 41% High 29% Target range 29% Low 1% My interpretation is she has hyperglycemia postprandially and overnight. Current medication regimen: Tresiba 40 units nightly, lispro 14 units before meals, Trulicity 3 mg weekly, Jardiance 10 mg daily. Past medications: Patient denies prior medications. Hypoglycemia symptoms: She has occasional hypoglycemia in the afternoon because she does not eat a lunch usually and sometimes forgets to have a snack. She treats with glucose tablets. Hyperglycemia symptoms: tired, dry mouth, polydipsia, polyuria Eye exam: October 2024 Microvascular complications: neuropathy on gabapentin, nephropathy, no known retinopathy Macrovascular complications: Coronary artery disease Patient has hyperlipidemia, on statin. She has hypertension treated with lisinopril, metoprolol, isosorbide mononitrate and amlodipine. ROS: Constitutional: Denies fevers, chills, night sweats. Denies fatigue. Eyes: Denies vision changes, denies blurry vision Respiratory: No shortness of breath, cough or sputum production. Cardiovascular: No chest pain, chest pressure or chest discomfort. No palpitations or pedal edema. Gastrointestinal: Denies nausea, vomiting, diarrhea, abdominal pain, acid reflux. Denies constipation. Neurologic: No headache or dizziness. She endorses neuropathy in her feet. Endocrine: See HPI Physical exam: Constitutional: Alert, in no distress. Eyes: Pupils are equal, round and reactive to light. Neck: Supple, Full range of motion. No lymphadenopathy. No palpable thyroid masses. Respiratory: Clear to auscultation. Cardiovascular: S1 S2 regular. No murmurs. No carotid bruits. Extremities: No edema Feet: Warm and well perfused. No clubbing, cyanosis or edema. Intact DP pulses. No open wounds. [facility] Medical History COVID Type II diabetes with terminal superintendent use of insulin Symptomatic anemia GI bleed Diabetes Anxiety Depression Asthma History of heart attack CAD (coronary artery disease) Hypercholesteremia HTN (hypertension) Surgical History Stented coronary artery Hx of colonoscopy (04/11/14) Family History Father Diabetes Hypercholesteremia HTN (hypertension) Mother HTN (hypertension) Diabetes Hypercholesteremia Brother HTN (hypertension) Diabetes Social History Household Members: None Housing: House Do you presently have visiting nurse or other home services: Yes (DIRECTOR OF PEDIATRIC REHABILITATION) Alcohol intake: current Alcohol intake frequency: does not drink Patient Tobacco Use Status: Former Tobacco user service: No Current occupational status: disabled Physical Exam Vital Signs: Last Vital Signs Pulse 91 05/23/25 14:45 BP 114/66 05/23/25 14:45 Pulse Ox 95 05/23/25 14:45 Oxygen Delivery Method Room Air 05/23/25 14:45 BMI result Body Mass Index 21.8 Office Procedures Glucose Monitoring Details Details: See HPI 33032 - Glucose monitoring, continuous-physician I&R Procedure code (CPT) selection complete Results Reviewed Results Reviewed: Laboratory Last Values Glucose (Clinic) 122 mg/dL (60-115) H 05/23/25 14:50 Laboratory Tests 01/07/22 06/18/24 09/19/24 13:22 12:51 10:00 Creatinine 0.94 1.23 Estimated GFR > 60 44 B-Natriuretic Peptide 128 H Triglycerides 206 H Cholesterol 141 LDL Cholesterol, Calc 65 HDL Cholesterol 35 L TSH 0.76 Urine Creatinine 161.00 Urine Microalbumin 17.0 Microalb/Creat Ratio 10.5 Laboratory Tests 10/06/24 13:46 C-Peptide 1.37 Islet Cell Ab Screen NEGATIVE JEREMIAS Antibody <5 Laboratory Tests 03/03/25 14:30 Creatinine 0.95 Estimated GFR 60 AST 24 ALT 27 Triglycerides 172 H Cholesterol 163 LDL Cholesterol, Calc 88 HDL Cholesterol 41 Assessment & Plan Assessment & Plan (1) Type II diabetes with snf use of insulin: Code(s): E11.9 - Type 2 diabetes mellitus without complications; Z79.4 - termite control representative (current) use of insulin Category: Medical Qualifiers: Diabetes mellitus complication status: with neurologic complications Diabetes mellitus complication detail: with polyneuropathy Qualified Code(s): E11.42 - Type 2 diabetes mellitus with diabetic polyneuropathy; Z79.4 - termite control representative (current) use of insulin (2) HTN (hypertension): Code(s): I10 - Essential (primary) hypertension Category: Medical Qualifiers: Hypertension type: primary hypertension Qualified Code(s): I10 - Essential (primary) hypertension Plan: Recommended low-sodium diet and avoidance of caffeine. Blood pressure is well-controlled on her current regimen. (3) Hypercholesteremia: Code(s): E78.00 - Pure hypercholesterolemia, unspecified Category: Medical Plan: LDL at goal less than 70. Continue atorvastatin 80 mg. Plan In summary this is a 59-year-old diabetic female with poor albeit improving glycemic control on basal bolus insulin, Trulicity and Jardiance. Continue Tresiba 40 units daily. Increase insulin lispro to 16 units before meals (patient eats breakfast and dinner.). Continue Trulicity 3 mg weekly. Increase Jardiance to 25 mg daily. If you experience low blood sugar, treat this by eating a chewable fruit candy like skittles or jelly beans (about 8 pieces), 4 ounces (1/2 cup) of fruit juice (not diet), 1 tablespoon of honey or 4 glucose tablets or a 15 g glucose gel packet. If your blood sugar is under 50, take double the amount of one of the above. Recheck your blood sugar in [address] if she does not have a reliable way to check her blood sugar or has symptoms of hypoglycemia. Discussed pathophysiology of Type II Diabetes Mellitus with the patient in detail.? I explained the terminal superintendent risks and complications associated with uncontrolled diabetes including nephropathy, neuropathy, peripheral vascular disease, retinopathy, increased risk of heart disease and stroke.? Follow up in 2 months for type 2 diabetes. Orders: Orders AMB Glucose Monitoring Today E11.9 - Type 2 diabetes mellitus without complications Medications: New empagliflozin (Jardiance) 25 mg PO QAM 90 tabs 1RF Changed From insulin lispro 14 units (0.14 mL) subcut TIDWMEAL 15 mL 5RF To insulin lispro 16 units subcut TIDWMEAL Discontinued empagliflozin (Jardiance) Discontinued Reason: Doctor's Order 10 mg PO QAM 30 tabs 1RF Patient Instructions: Continue Tresiba 40 units nightly Increase lispro to 16 before units before meals (you eat breakfast and dinner typically) Continue Trulicity 3 mg weekly Increase Jardiance to 25 mg in the morning If you experience low blood sugar, treat this by eating a chewable fruit candy like skittles or jelly beans (about 8 pieces), 4 ounces (1/2 cup) of fruit juice (not diet), 1 tablespoon of honey or 4 glucose tablets. If your blood sugar is under 50, take double the amount of one of the above. Recheck your blood sugar in 15 minutes. Contin?e con Tresiba 40 unidades cada noche. Aumente la dosis de lispro a 16 unidades antes de las comidas (normalmente desayuna y joann). Contin?e con Trulicity 3 mg semanalmente. Aumente la dosis de Jardiance a 25 mg por la ma?ryley. Si experimenta niveles bajos de az?car en la mariah, tr?telo con un caramelo masticable de fruta freddy Skittles o Jelly Beans (aproximadamente 8 piezas), 113 ml (1/2 taza) de jugo de fruta (no light), 1 cucharada de miel o 4 tabletas de glucosa. Si campbell nivel de az?car en la mariah es inferior a 50, tome el doble de la dosis de moreno de los medicamentos mencionados. Vuelva a medir campbell nivel de az?car en la mariah en 15 minutos. Coding Level of Care Code Est Pt Level 4 (92977) Diagnoses Type 2 diabetes mellitus with diabetic polyneuropathy, with long-term current use of insulin E11.42; Z79.4 Diabetes mellitus complication status: with neurologic complications Diabetes mellitus complication detail: with polyneuropathy Primary hypertension I10 Hypertension type: primary hypertension Hypercholesteremia E78.00 CPT Codes Details - CPT: 99254 - Glucose monitoring, continuous-physician I&R ([id number])
[2025-05-23 14:55] LABS: Glucose, Whole Blood 122 mg/dL (60-115)
--- OUTSIDE RECORDS SUMMARY | 2025-05-23 18:00 | XMS_ITS | Encounter Summary ---
Author Organization [employer] Address [address] [facility] [address]t [place] [address] Care Team Providers Care Ocean Lifeguard Specialist Name Role Phone Brittnee Hanna MD Primary Care Provider [phone] Tan Mancain OD Unavailable [phone] Adolfo Armandon Unavailable Reason for Visit * Reason Comments Med Refill Encounter Details Date Type Department Care Team ([facility] st Contact Info) Description 10/03/2024 Refill [facility] [address] [place] [address] Brittnee Hanna MD [address] [place] [address] Mild intermittent asthma without complication Social History [...] Blood Pressure 122/80(2024 11:16 AM EDT) No Di Meyers, PharmD Hemoglobin A1c < 7 Result Component 9.4( 12:19 PM EDT) No Di Meyers, PharmD documented as of this encounter Visit Diagnoses Diagnosis Mild intermittent asthma without complication documented in this encounter Additional Health Concerns Assessment Noted Time PHQ-9 Depression Total Score: 15 024 10:35 AM EDT documented as of this encounter Care Teams Ocean Lifeguard Specialist Relationship Specialty Start Date End Date Brittnee Hanna MD [address] [place] [address] PCP - General Family Medicine 08/17/18 Martina Mancia OD [address] [place] [address] Optometry 07/26/24 Allyson Armando [address]rd [place] [address] Cardiology 01/03/25 Donna Sutton Nipple MakerCertified Physician'S Assistant 05/06/[address] [facility] [place] Endocrinology Endocrinology 11/04/24 documented as of this encounter
--- OUTSIDE RECORDS SUMMARY | 2025-05-23 18:00 | XMS_ITS | Encounter Summary ---
Author Organization [employer] Address [address] [facility] 7t [place] [address] Care Team Providers Care Sales Technician Home Theater Name Role Phone Brittnee Hanna MD Primary Care Provider [phone] Tan Mancian OD Unavailable Adolfo Armandon Unavailable Reason for Visit * Reason Onset Date Comments pt1 05/05/2025 Encounter Details Date Type Department Care Team ([facility] st Contact Info) Description 05/05/2025 Telephone [facility] [address] [place] [address] Brittnee Hanna MD [address] [place] [address] pt1 Social History Tobacco Use Types Packs/Day Years [...] encounter Miscellaneous Notes * Telephone Encounter - Stewjeanmarie Cecy - 05/05/2025 1:43 PM EDT Patient calling requesting PT1 Home Address verified: Y/N: Yes Provider name or facility name: [address] [facility] [address] Escort needed: Y/N: Yes Do you have a wheelchair: Y/N: No If yes- Manual or electric: Visits: 3x a month Patient calling requesting PT1 Home Address verified: Y/N: Yes Provider name or facility name: [address] [facility] [address] Escort needed: Y/N: Yes Do you have a wheelchair: Y/N: No If yes- Manual or electric: Visits: 2-3x a month Patient calling requesting PT1 Home Address verified: Y/N: Yes Provider name or facility name: [address] [place] [address] Escort needed: Y/N: Yes Do you have a wheelchair: Y/N: No If yes- Manual or electric: Visits: 3x a month Patient calling requesting PT1 Home Address verified: Y/N: Yes Provider name or facility name: [address] [place] [address] Escort needed: Y/N: Yes Do you have a wheelchair: Y/N: No If yes- Manual or electric: Visits:2x a month Patient calling requesting PT1 Home Address verified: Y/N: Yes Provider name or facility name: [address] [facility] [address] Escort needed: Y/N: Yes Do you have a wheelchair: Y/N: No If yes- Manual or electric: Visits: 2x a month documented in this encounter Plan of Treatment Not on file documented as of this encounter Goals Goal Patient Goal Type Associated Problems Recent Progress Patient-Stated? Author Blood Pressure < 140/90 Blood Pressure 122/80(2024 11:16 AM EDT) No Piers-Gambl e, Di, PharmD Hemoglobin A1c < 7 Result Component 9.4( 12:19 PM EDT) No Piers-Gambl eDi, PharmD documented as of this encounter Visit Diagnoses Not on filedocumented in this encounter Additional Health Concerns Assessment Noted Time PHQ-9 Depression Total Score: 17 025 11:40 AM EDT documented as of this encounter Care Teams Sales Technician Home Theater Relationship Specialty Start Date End Date Brittnee Hanna MD [address] [place] [address] PCP - General Family Medicine 08/17/18 Martina Mancia OD [address] [place] [address] Optometry 07/26/24 Allyson Armando [address] [place] [address] [address] [place] [address] Cardiology 01/03/25 Donna Sutton Mold DresserVisual C Developer 05/06/24 Bety Benson NP [facility] [place]ocrinology Endocrinology 11/04/24 documented as of this encounter
--- OUTSIDE RECORDS SUMMARY | 2025-05-23 18:00 | XMS_ITS | Encounter Summary ---
Author Organization [employer] Address [address] [facility] [address]t [place] [address] Care Team Providers Care Washer Hand Name Role Phone Brittnee Hanna MD Primary Care Provider [phone] Di Hyde PharmD Unavailable Martina Mancia OD Unavailable [phone] Prabha Allyson Unavailable Encounter Details Date Type Department Care Team (Late st Contact Info) Description 08/25/2022 Orders Only [facility] [address] [place] [address] Jeana Vital LPN Social History Tobacco Use [...] Bilirubin, Total 0.3 0.0 - 1.0 mg/dL [facility] Bilirubin, Direct 0.1 0.0 - 0.5 mg/dL [facility] Aspartate Amino Transferase 18 5 - 31 U/L [facility] Alanine Aminotransferase 33(H) 0 - 31 U/L [facility] Total Protein 7.4 6.5 - 8.0 g/dL [facility] Albumin Level 4.3 3.5 - 5.0 g/dL [facility] Alkaline Phosphatase 142(H) 39 - 117 U/L [facility] 07/21/2023 12:4 7 PM EST 07/21/2023 3:59 PM EST us Brittnee Hanna MD LAB BLOOD ORDERABLES Final Result [facility] [address] [place] [address] [phone] documented in this encounter Visit Diagnoses Not on filedocumented in this encounter Care Teams Washer Hand Relationship Specialty Start Date End Date Brittnee Hanna MD [address] [place] [address] PCP - General Family Medicine 08/17/18 Di Hyde, ShabbirD [address] [place] [address] Pharmacist Internal Medicine 01/06/23 08/31/24 Martina Mancia OD [address] [place] [address] Optometry 07/26/24 Allyson Armando [address]rd [place] [address] Cardiology 01/03/25 Donna Sutton Ladle WatcherLine Producer 05/06/24 Bety Benson NP [facility] Endocrinology Endocrinology 11/04/24 documented as of this encounter
--- OUTSIDE RECORDS SUMMARY | 2025-05-23 18:00 | XMS_ITS | Encounter Summary ---
Author Organization [employer] Address [address] [facility] [address] [place] [address] Care Team Providers Care Schedule Planning Manager Name Role Phone Brittnee Hanna MD Primary Care Provider [phone] Di Hyde PharmD Unavailable [phone] Martina Mancia OD Unavailable [phone] Prabha, Allyson Unavailable Encounter Details Date Type Department Care Team (Late st Contact Info) Description 05/24/2024 Orders Only [facility] [address] [place] [address] Brittnee Hanna MD [address] [place], [place] [phone] Social History Tobacco Use Types Packs/Day Years [...] documented as of this encounter Care Teams Schedule Planning Manager Relationship Specialty Start Date End Date Brittnee Hanna MD [address] [place] [address] PCP - General Family Medicine 08/17/18 Di Hyde, PharmD [address] [place] [address] Pharmacist Internal Medicine 01/06/23 08/31/24 Martina Mancia OD [address] [place] [phone] Optometry 07/26/24 Allyson Armando [address] [place] [address] Cardiology 01/03/25 Donna Sutton Residential ConciergeReimbursement Representative 05/06/24 Bety Benson, CIRCULATOR [facility] [place] [facility] Endocrinology Endocrinology 11/04/24 documented as of this encounter
--- OUTSIDE RECORDS SUMMARY | 2025-05-23 18:00 | XMS_ITS | Clinical Summary ---
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 Continuous Blood Gluc Hoop Punch And Coiler Operator Helper (FreeStyle Ric 2 Rittman) device Use as directed 1 each 023 Active Continuous Glucose Sensor (FreeStyle Ric 2 Sensor) miscIndications :Type 2 diabetes mellitus with hyperglycemia, with long-term current use of insulin ([facility]) USE DIRECTED TO TEST BLOOD SUGAR CHANGE EVERY 14 DAYS 2 each 024 Active Blood Glucose Monitoring Suppl (FreeStyle Iron Station Lite) w/Device kitIndications: Type 2 diabetes mellitus with hyperglycemia, with long-term current use of insulin ([facility]) TEST BLOOD SUGAR FIVE TIMES DAILY DIRECTED 1 kit 024 Active OLANZapine (ZyPREXA) 7.5 MG tabletIndicatio ns:Recurrent major depressive disorder, in remission (CMS/HCC) TAKE 1 TABLET BY MOUTH AT BEDTIME 30 tablet 024 Active glucose 4 g chewable tabletIndicatio ns:Type 2 diabetes mellitus with hyperglycemia, with long-term current use of insulin ([facility]) Chew 4 tablets (16 g) if needed for low blood sugar. 50 tablet Active glucagon (Baqsimi Two Pack) 3 MG/DOSE nasal powderIndicatio ns:Type 2 diabetes mellitus with hyperglycemia, with long-term current use of insulin ([facility]) For low blood sugar emergencies, insert 3mg into one nostril, may repeat the dose if no response after 15 minutes. 1 each Active loratadine (Claritin) 10 MG tabletIndicatio ns:Allergic rhinitis, unspecified seasonality, unspecified trigger TAKE 1 TABLET BY MOUTH EVERY MORNING FOR ALLERGIES 90 tablet 3 Active glucose blood (FreeStyle Precision Freeman Test) test stripIndication s:Type 2 diabetes mellitus with hyperglycemia, with long-term current use of insulin ([facility]) TEST BLOOD SUGAR UP TO FOUR TIMES DAILY NEEDED 100 strip Active Ferrous Sulfate (iron) 325 (65 Fe) MG tabletIndicatio ns:Anemia, unspecified type TAKE 1 TABLET BY MOUTH EVERY OTHER DAY IN THE MORNING 45 tablet Active Icosapent Ethyl (Vascepa) 1 g capsuleIndicati ons:Dyslipidemi a TAKE 2 CAPSULES BY MOUTH TWICE DAILY IN THE MORNING AND EVENING 360 capsule Active acetone, urine, test stripIndication s:Type 2 diabetes mellitus with hyperglycemia, with long-term current use of insulin ([facility]) Use as directed to check for [...] Use as instructed 100 each 025 Active Dulaglutide 0.75 MG/0.5ML solution auto-injector Inject under the skin. Active insulin lispro (HumaLOG) 100 UNIT/ML injectionIndica tions:Type 2 diabetes mellitus with other circulatory complication, with long-term current use of insulin ([facility]) Administer 18 units daily before each meal 15 mL Active lisinopril 20 MG tabletIndicatio ns:Essential hypertension TAKE 1 TABLET BY MOUTH EVERY MORNING 90 tablet 3 025 Active atorvastatin (Lipitor) 80 MG tabletIndicatio ns:Type 2 diabetes mellitus with hyperglycemia, with long-term current use of insulin ([facility]),Dyslipide china TAKE 1 TABLET BY MOUTH AT BEDTIME 90 tablet 025 Active gabapentin (Neurontin) 100 MG capsuleIndicati ons:Neuropathy TAKE 1 CAPSULE BY MOUTH TWICE DAILY 60 capsule Active isosorbide mononitrate ER (Imdur) 30 MG 24 hr tabletIndicatio ns:Essential hypertension TAKE 1 TABLET BY MOUTH EVERY MORNING 90 tablet 025 Active insulin glargine (Lantus SoloStar) 100 UNIT/ML penIndications: Type 2 diabetes mellitus with other circulatory complication, with long-term current use of insulin ([facility]) INJECT 42 UNITS SUBCUTANEOUSLY EVERY DAY AT BEDTIME, IF FASTING BLOOD SUGAR IS > 180 INCREASE TO 46 UNITS AFTER 3 DAYS 15 mL 025 Active amLODIPine (Norvasc) 5 MG tabletIndicatio ns:Essential hypertension TAKE 1 TABLET BY MOUTH EVERY MORNING 90 tablet 025 Active TRUEplus Lancets 33G miscIndications :Type 2 diabetes mellitus with hyperglycemia, with long-term current use of insulin ([facility]) TEST BLOOD SUGAR FIVE TIMES DAILY 200 each Active aspirin (Aspirin Adult Low Strength) 81 MG EC tabletIndicatio ns:Coronary artery stenosis Take 1 tablet (81 mg) by mouth in the morning. 90 tablet 025 Active chlorthalidone (Hygroton) 25 MG tabletIndicatio ns:Essential hypertension TAKE ONE HALF TABLET BY MOUTH ONCE DAILY 45 tablet 025 Active metoprolol succinate XL (Toprol-XL) 50 MG 24 hr tabletIndicatio ns:Essential hypertension Take 1 tablet (50 mg) by mouth in the morning. Do not crush or chew. 90 tablet 3 025 Active tiotropium (Spiriva HandiHaler) 18 MCG inhalation capsuleIndicati ons:Asthma-COPD overlap syndrome (CMS/HCC) ([facility]) Place 1 capsule (18 mcg) into inhaler and inhale in the morning. 30 capsule 025 Active Fluticasone-Larry meterol (Advair Diskus) 250-50 MCG/ACT aerosol powderIndicatio ns:Asthma-COPD overlap syndrome (CMS/HCC) ([facility]) Inhale 250 mg 2 times daily. 60 each 5 025 Active fluticasone (Flonase) 50 MCG/ACT nasal sprayIndication s:Seasonal allergies 1 spray each nostril daily prn allergies Shake gently. Before first use, prime pump. After use, clean tip and replace cap. 16 g 2 025 Active albuterol 1.25 MG/3ML nebulizer solution Take 6 mL (2.5 mg) by nebulization every 4 (four) hours if needed for wheezing. 75 mL 025 2025 Active Alcohol Swabs (Alcohol Prep) 70 % padsIndications :Type 2 diabetes mellitus with hyperglycemia, with long-term current use of insulin ([facility]) USE BEFORE TEST BLOOD SUGAR AND INSULIN 100 each 025 Active albuterol (Ventolin HFA) 108 (90 Base) MCG/ACT inhalerIndicati ons:Asthma-COPD overlap syndrome (CMS/HCC) ([facility]) INHALE 2 PUFFS BY MOUTH EVERY 4 HOURS NEEDED FOR WHEEZING OR SHORTNESS OF BREATH 18 g 025 Active meclizine (Antivert) 25 MG tablet Take 1 tablet (25 mg) by mouth if needed in the morning, at noon, and at bedtime for dizziness for up to 10 days. 30 tablet 025 2024 Active Alcohol Swabs (Alcohol Prep) 70 % padsIndications :Type 2 diabetes mellitus with hyperglycemia, with long-term current use of insulin ([facility]) USE BEFORE TEST BLOOD SUGAR AND INSULIN 100 each 024 2024 Discontinued Spiriva HandiHaler 18 MCG inhalation capsuleIndicati ons:Chronic obstructive pulmonary disease, unspecified COPD type (CMS/HCC) (HCC),Mild intermittent asthma without complication USE 1 CAPSULE FOR INHALATION ONCE A DAY DO NOT SWALLOW CAPSULE 30 capsule 11 025 2024 Discontinued(R eorder (will not trigger [...] Base) MCG/ACT inhalerIndicati ons:Asthma-COPD overlap syndrome (CMS/HCC) (HCC) INHALE 2 PUFFS BY MOUTH EVERY 4 HOURS NEEDED FOR WHEEZING OR SHORTNESS OF BREATH 18 g 025 2024 Discontinued Active Problems Patient Care Coordination No te Formatting of this note migh t be different from the original. Enrolled in [facility] DM clinic with Di Hyde, ShabbirD, LANG Problem Noted Date Diagnosed Date Vertigo 05/19/2025 Assessment & Plan (05/19/2025 6:52 PM EDT): Orders: Referral to Physical Therapy; Future Unintentional weight loss 08/10/2024 Overview (04/26/2025): Pt [...] GI and Endocrinology placed 09/01/24 -note from [facility] 02/08/25 She will be due for colonoscopy [...] GI and Endocrinology placed 09/01/24 -note from [facility] 02/08/25 She will be due for colonoscopy [...] for OP and psychiatry services in the [place] area. clinician provided contact information for [facility] in [place]. Dizziness 12/30/2023 Overview (12/31/2023): Pt continues to [...] as pharmacomtherapy, [facility] smoking cessation group, and [facility] pharmacy smoking cessation clinic Discussed USPSTF [...] as pharmacomtherapy, [facility] smoking cessation group, and [facility] pharmacy smoking cessation clinic Discussed USPSTF [...] as pharmacomtherapy, [facility] smoking cessation group, and [facility] pharmacy smoking cessation clinic Discussed USPSTF [...] due after 07/27/25 -eye care facilitated by [facility] on 05/20/2023 -dental home is [facility], [facility] -health care proxy filed 04/07/24 Assessment & Plan (07/27/2024 2:57 PM EST): -next physical exam due after 07/27/25 -eye care facilitated by [facility] on 05/20/2023 -dental home is [facility], [facility] -health care proxy filed 04/07/24 Assessment & Plan (04/07/2024 10:24 AM EDT): -next physical exam due after 06/10/2024 -eye care facilitated by [facility] on 05/20/2023 -dental home is [facility], [facility] -health care proxy filed 04/07/24 Assessment & Plan (06/10/2023 2:19 PM EDT): -next physical exam due after 06/10/2024 -eye care facilitated by [facility] on 05/20/2023 -dental home is Anemia [...] controlled -does not take meds before visits -[facility] referral Disorder of cardiovascular [...] strict ED precautions. -Referral to re-establish with [facility] placed Assessment & [...] -poor EF and DM) Asthma-COPD overlap syndrome (CMS/[facility]) 4 Overview (04/07/2024): -On Advair and Spiriva with [...] 01/30/2014 Chronic kidney disease, stage III (moderate) (CM S/HCC) 09/13/2012 Chronic sinusitis 09/13/2012 Depressive disorder 04/21/2012 Assessment [...] for OP and psychiatry services in the [place] area. clinician provided contact information for [facility] and [facility] in [place]. Assessment & Plan (01/08/2023 10:29 AM EDT): [...] health services. PLAN: 1. Follow up with [facility]: Not recommended for follow-up 2. Patient goal is to engage in behavioral health services. 3. Behavioral Recommendations a. Practice using a different coping skill on a daily basis b. Once services are established, attend therapy and medication management appointments c. Patient will reach out to a [facility] during next PCP appointment if needed Assessment & Plan (07/22/2022 2:55 PM EST): Most likely exacerbated by lack of meds >1m. Called pharmacy and verify med dose, sent Rx for Olanzapine 7.5mg I will email [facility] to make an appt with Dr Quinn [...] Rereferred to endo and restablished 10/2024 at [facility] . Note from 02/07/25 [...] UTI and yeast infections. Assessment & Plan (05/19/2025 6:52 PM EDT): Orders: POCT Glucose Assessment & Plan (04/26/2025 1:43 PM EDT): Diabetes is not controlled. Rereferred to endo and restablished 10/2024 at [facility] . Note from 02/07/25 [...] glucose monitor. Needs sensors. She did not pickle maker but will this week. Lab Results Component [...] episode of recurren t major depressive disorder ([facility]) 12/30/2023 04/07/2024 History of diabetic ketoacidosis 02/18/2023 [...] admitted on 03/17/2022 for DKA (diabetic ketoacidosis) ([facility]) [E11.10];Acute cystitis without hematuria [N30.00] Results: [...] admitted on 03/17/2022 for DKA (diabetic ketoacidosis) ([facility]) [E11.10];Acute cystitis without hematuria [N30.00] Results: [...] Encounters Date Type Department Care Team Description 05/19/2025 11:15 AM EDT Office Visit [address] [phone] Kristina Olea NP Type 2 diabetes mellitus with hyperglycemia, with long-term current use of insulin ([facility]) (Primary Dx); Vertigo 05/19/2025 Travel 05/18/[address] [address] Brittnee Hanna MD 05/18/[address] [address] Brittnee Hanna MD CHARTPREP 05/17/[address] [address] Brittnee Hanna MD Nurse Triage 05/09/[address] [address] Brittnee Hanna MD Type 2 diabetes mellitus with hyperglycemia, with long-term current use of insulin (CMS/HCC); Asthma-COPD overlap syndrome (CMS/HCC) 05/05/2025 Patient Outreach [facility] [address] [place] [phone] Brittnee Hanna MD Care Coordination (CHW outreach for SDOH PT-1 and food needs-referral completed /) 05/05/2025 Telephone [facility] [address] [place] [phone] Brittnee Hanna MD pt1 05/02/2025 Telephone [facility] [address] [place] [phone] Brittnee Hanna MD Durable Medical Equipment 04/26/2025 11:30 AM EDT Office Visit [facility] [address] [place] [phone] Brittnee Hanna MD Type 2 diabetes mellitus with hyperglycemia, with long-term current use of insulin ([facility]) (Primary Dx); Unintentional weight loss; Anemia, unspecified type; Asthma-COPD overlap syndrome ([facility]); Chronic obstructive pulmonary disease, unspecified COPD type ([facility]); Mild intermittent asthma without complication; Seasonal allergies 04/26/2025 Refill [facility] [address] [place] [phone] Brittnee Hanna MD 04/26/2025 Travel 04/25/2025 Telephone [facility] [address] [place] [phone] Brittnee Hanna MD chart prep 04/19/2025 Travel 04/06/2025 Refill [facility] [address] [place] [phone] Brittnee Hanna MD Mild intermittent asthma without complication 04/05/2025 Refill [facility] [address] [place] [phone] Brittnee Hanna MD Mild intermittent asthma without complication 03/13/2025 Refill [facility] [address] [place] [address] Brittnee Hanna MD Coronary artery stenosis; Essential hypertension 03/13/2025 Telephone [facility] [address] [place] [address] Brittnee Hanna MD 03/09/2025 Refill [facility] [address] [place] [address] Brittnee Hanna MD Mild intermittent asthma without complication from Last 3 Months Immunizations Immunization Administration [...] 18 05/19/2025 11:16 AM EDT Oxygen Saturation 98% 04/26/2025 11:38 AM EDT Inhaled Oxygen Concentration - - Weight 55.3 kg (122 lb) 05/19/2025 11:16 AM EDT Height 157.5 cm (5' 2 ) 05/19/2025 11:16 AM EDT Body Mass Index 22.31 05/19/2025 11:16 AM EDT Plan of Treatment Health Maintenance [...] exists SDOH Screening 04/26/2026 04/26/2025 Tobacco Screening 05/19/2026 05/19/2025 Eye Exam 11/07/2026 11/07/2024, 10/16, 11/07/2024, Additional [...] Pressure 122/80(2024 11:16 AM EDT) No Di Meyers PharmD Hemoglobin A1c < 7 Result Component 9.4( 12:19 PM EDT) No Di Meyers PharmD Procedures Procedure Name Priority Date/Time Associated Diagnosis Comments POCT GLUCOSE Routine 05/19/2025 11:17 AM EDT Type 2 diabetes mellitus with hyperglycemia, with long-term current use of insulin (HCC) VITAMIN B12/FOLATE, SERUM PANEL Routine 04/26/2025 12:19 [...] with long-term current use of insulin (CMS/HCC) HEMOGLOBIN A1C Routine 04/26/2025 12:19 PM EDT Type 2 diabetes mellitus with hyperglycemia, with long-term current use of insulin (CMS/HCC) LIPID PANEL, STANDARD Routine 04/26/2025 12:19 PM EDT Type 2 diabetes mellitus with hyperglycemia, with long-term current use of insulin (CMS/HCC) HEPATIC FUNCTION PANEL Routine 12:19 PM EDT Type 2 diabetes mellitus with hyperglycemia, with long-term current use of insulin (CMS/HCC) ALBUMIN, RANDOM URINE W/CREATININE Routine 04/26/2025 12:19 PM EDT Type 2 diabetes mellitus with hyperglycemia, with long-term current use of insulin (CMS/HCC) POCT GLYCATED HEMOGLOBIN, TOTAL Routine 04/26/2025 11:43 AM EDT Type 2 diabetes mellitus with hyperglycemia, with long-term current use of insulin (CMS/HCC) POCT GLUCOSE Routine 04/26/2025 11:41 AM EDT Type 2 diabetes mellitus with hyperglycemia, with long-term current use of insulin ([facility]/HCC) BI MAMMOGRAM SCREENING TOMOSYNTHESIS BILATERAL Routine 07/24/2023 [...] to Health Maintenance Results * (ABNORMAL) POCT Glucose (05/19/2025 11:17 AM EDT) Only the most recent of2 resultswithin the time period is included. Pathologist [facility] Glucose Blood, POC 276(A) 60 - 200 mg/dL Blood Capillary blood specimen / Unknown 05/19/2025 11:17 AM EDT Kristina Olea NP POINT OF CARE TEST ENTER/EDIT OR DERABLES Final Result * Vitamin B12 (Cobalamin) and Folate Panel, Serum (04/26/2025 12:19 PM EDT) Pathologist [facility] Vitamin B12 336 200 - 900 pg/mL [facility] Comment:NORMAL 200-900 PG/ML INDETERMINATE 160-199 PG/ML DEFICIENT < 160 PG/ML Folate 6.9 > or = 4.0 ng/mL [facility] Comment:Reference Values:> o r = 4.0 ng/mL< 4.0 ng/mL suggests folate deficiency Methotrexate, aminopterin and folinic acid(leucovorin) are chemotherapeutic agents whose molecularstructures are similar to folate; therefore, the Architectfolate assay cannot be used for patients using these drugs. Blood Venous blood specimen / Unknown 04/26/2025 12:19 PM EDT 04/26/2025 1:57 PM EDT Result [facility] Brittnee Hanna MD LAB BLOOD ORDERABLES Final Result [facility] [address] [place] [address] [phone] * TSH with Reflex to Free T4 (04/26/2025 12:19 PM EDT) Pathologist [facility] TSH reflex Free T4 0.97 0.32 - 4.0 uIU/mL [facility] Blood Venous blood specimen / Unknown 04/26/2025 12:19 PM EDT 04/26/2025 1:57 PM EDT Brittnee Hanna MD LAB BLOOD ORDERABLES Final Result Performing Organization Address [facility]/ZIP Co de Phone Number [facility] [address] [place] [address] [phone] * Albumin, Random Urine W/Creatinine (04/26/2025 12:19 PM EDT) Creatinine, Urine 103.45 mg/dL [facility] Microalbumin Urine 9.0 mg/L [facility] Microalbum Creatinine Ratio Ur 8.6 <30 ug/mg cr [facility] Comment:Albumin/Creatinine R atio Reference Ranges: Normal: < 30 ug/mg creatinine Microalbuminuria: 30 - 300 ug/mg creatinineClinical Albuminuria: > 300 ug/mg creatinine Urine 04/26/2025 12:1 9 PM EDT 04/26/2025 1:26 PM EDT Brittnee Hanna MD LAB URINE ORDERABLES Final Result Performing Organization Address [facility] Co de Phone Number [facility] [address] [place] [phone] * (ABNORMAL) CBC auto differential (04/26/2025 12:19 PM EDT) White Blood Count 7.8 4.8 - 10.8 X10*3/uL [facility] Red Blood Count 4.53 4.20 - 5.50 X10*6/uL [facility] Hemoglobin 13.2 12.0 - 16.0 g/dl [facility] Hematocrit 40.3 37.0 - 47.0 % [facility] Mean Corpuscular Volume 89.0 80.0 - 98.0 fL [facility] Mean Corpuscular Hemoglobin 29.1 27.0 - 33.0 pg [facility] Mean Corpuscular HGB Conc 32.8 31.0 - 35.0 g/dl [facility] Red Cell Distribution Width 13.1 11.0 - 16.0 % [facility] Platelet Count 293 160 - 400 X10*3/uL [facility] Mean Platelet Volume 11.2 9.4 - 12.3 fL [facility] Neutrophils Percent Auto 60.8 45 - 73 % [facility] Imm Gran Pct Auto 0.4 0.0 - 0.4 % [facility] Lymphocytes Percent Auto 22.6 20 - 40 % [facility] Monocytes Percent Auto 6.4 2 - 11 % [facility] Eosinophils Percent Auto 9.4(H) 0 - 4 % [facility] Basophils Percent Auto 0.4 0 - 2 % [facility] NRBC Pct Auto 0.0 0.0 - 0.2 /100WBC [facility] Neutrophils Absolute Auto 4.7 2.0 - 8.3 x10*3/uL [facility] Imm Gran Abs Auto 0.03 0.00 - 0.03 X10*3/uL [facility] Lymphocytes Absolute Auto 1.8 1.2 - 4.9 X10*3/uL [facility] Monocytes Absolute Auto 0.5 0.1 - 1.2 X10*3/uL [facility] Eosinophils Absolute Auto 0.7(H) 0.0 - 0.4 X10*3/uL [facility] Basophils Absolute Auto 0.0 0.0 - 0.2 X10*3/uL [facility] NRBC Abs Auto 0.000 0.0 - 0.012 X10*3/uL [facility] Blood Venous blood specimen / Unknown 04/26/2025 12:19 PM EDT 04/26/2025 1:32 PM EDT us Brittnee Hanna MD LAB BLOOD ORDERABLES Final Result [facility] [address] [place] [phone] * Iron And Total Iron Binding Capacity (04/26/2025 12:19 PM EDT) Iron 69 30 - 160 mcg/dL [facility] Total Iron Binding Capacity 258 228 - 428 mcg/dL [facility] Percent Iron Saturation 27 15 - 50 % [facility] Unsaturated Iron Binding 189 ug/dL [facility] Blood Venous blood specimen / Unknown 04/26/2025 12:19 PM EDT 04/26/2025 1:57 PM EDT Brittnee Hanna MD LAB BLOOD ORDERABLES Final Result Performing Organization Address City/[facility]/ZIP Co de Phone Number [facility] [address] [place] [phone] * (ABNORMAL) Hemoglobin A1c (04/26/2025 12:19 PM EDT) Hemoglobin A1c 9.4(H) <6.0 % [facility] Comment:Hemoglobin A1C Refer ence Range Adults: 4.8 - 6.0 % Non diabetic: < 6.0 % Goal: < 7.0 %Additional Action Suggested: > 8.0 %Note: Hemoglobin A1c results are invalid for patients with abnormal amounts of HbF. Blood transfusions may impact the HbA1c concentration in the patient sample. Estimated Average Glucose 223 mg/dL [facility] Comment:eAG = Estimated ave rage glucose which is %A1C expressed asaverage glucose, using the formula of the X1Q-FywxksgZkeimnh Glucose study (ADAG), Diabetes Care, Vol.31,#8,Mar. 2007 Blood Venous blood specimen / Unknown 04/26/2025 12:19 PM EDT 04/26/2025 1:57 PM EDT Brittnee Hanna MD LAB BLOOD ORDERABLES Final Result Performing Organization Address [facility]/ZIP Co de Phone Number [facility] [address] [place] [phone] * Ferritin (04/26/2025 12:19 PM EDT) Ferritin 105 10 - 250 ng/mL [facility] Blood Venous blood specimen / Unknown 04/26/2025 12:19 PM EDT 04/26/2025 1:57 PM EDT Brittnee Hanna MD LAB BLOOD ORDERABLES Final Result Performing Organization Address [facility]/ZIP Co de Phone Number [facility] [address] [place] [phone] * (ABNORMAL) Hepatic Function Panel (04/26/2025 12:19 PM EDT) Bilirubin, Total 0.3 0.0 - 1.0 mg/dL [facility] Bilirubin, Direct 0.1 0.0 - 0.5 mg/dL [facility] Aspartate Amino Transferase 32(H) 5 - 31 U/L [facility] Alanine Aminotransferase 41(H) 0 - 31 U/L [facility] Total Protein 7.6 6.5 - 8.0 g/dL [facility] Albumin Level 4.4 3.5 - 5.0 g/dL [facility] Alkaline Phosphatase 114 39 - 117 U/L [facility] [facility] Blood Venous blood specimen / Unknown 04/26/2025 12:19 PM EDT 04/26/2025 1:57 PM EDT Brittnee Hanna MD LAB BLOOD ORDERABLES Final Result Performing Organization Address [facility] Co de Phone Number [facility] [address] [place] [phone] * (ABNORMAL) Lipid Panel, Standard (04/26/2025 12:19 PM EDT) Triglycerides 220(H) <150 mg/dL [facility] Comment:Desirable Triglyceri de: less than 150 mg/dLBorderline High Triglyceride 150-199 mg/dLHigh Triglyceride: 200-499 mg/dLVery High Triglyceride: greater than or equal to 5OO mg/dL Cholesterol 232(H) <200 mg/dL [facility] Comment:Desirable Cholestero l: less than 200 mg/dLBorderline High Cholesterol: 200-239 mg/dLHigh Cholesterol: greater than 239 mg/dL LDL Cholesterol Calculated 140(H) <100 mg/dL [facility] Comment:Desirable LDL: less than 100 mg/dLNear Optimal/Above Optimal LDL: 110- 129 mg/dLBorderline High LDL: 130-159 mg/dLHigh LDL: 160-189 mg/dLVery High LDL: greater than or equal to 190 mg/dL HDL Cholesterol 48 >40 mg/dL [facility] Comment:Desirable HDL: great er than 40 mg/dL Note: This HDL assay may give artificially low results in patients with liver disease. Blood Venous blood specimen / Unknown 04/26/2025 12:19 PM EDT 04/26/2025 1:57 PM EDT Brittnee Hanna MD LAB BLOOD ORDERABLES Final Result [facility] [address] [place] [phone] * (ABNORMAL) Basic Metabolic Panel (04/26/2025 12:19 PM EDT) Sodium 141 135 - 145 mmol/L [facility] Potassium 4.3 3.3 - 5.1 mmol/L [facility] Chloride 107 96 - 108 mmol/L [facility] Carbon Dioxide 28 22 - 29 mmol/L [facility] Anion Gap 10(L) 12 - 20 [facility] Urea Nitrogen (BUN) 14 9 - 16 mg/dL [facility] Creatinine, Serum 0.96 0.5 - 1.4 mg/dL [facility] Estimated Glomerular Filt Rate 59 [facility] Comment:Chronic Kidney Disea se: Estimated GFR < 60 mL/min/1.86r4Xoflye Kidney Disease: Estimated GFR < 15 mL/min/1.73m2 Glucose 120(H) 60 - 115 mg/dL [facility] Calcium 9.9 8.4 - 10.2 mg/dL [facility] Blood Venous blood specimen / Unknown 04/26/2025 12:19 PM EDT 04/26/2025 1:57 PM EDT Brittnee Hanna MD LAB BLOOD ORDERABLES Final Result [facility] [address] [place] [address] [phone] * (ABNORMAL) POCT Hgb A1c (04/26/2025 11:43 AM EDT) Hemoglobin A1C 9.9(A) 4.0 - 5.7 % QC Media Lot # [id number] Lot# Expiration Date [id number] Blood 04/26/2025 11:4 3 AM EDT Brittnee Hanna MD POINT OF CARE TEST ENTER/E DIT ORDERABLES Final Result * BI Mammogram Screening Tomosynthesis Bilateral (07/24/2023 3:39 PM EST) Anatomical Region Laterality Modality Breast Bilateral Mammography 07/24/2023 3:39 PM EST Narrative 08/12/2023 3:43 AM EST [address] [place] [address] Mammography Report Signed Patient: Cynthia Perry MR#: [id number] : 1965 Acct:[id number] Age/Sex: 57 / F ADM Date: 07/24/23 Loc: HO.MAMMO Attending Dr: Brittnee Hanna MD Ordering Physician: Brittnee Hanna MD Results: 1N egative Date of Service: 07/24/23 Follow Up: 1 Year From Orig inal Mammogram Procedure(s): MM tomosynthesis screening BI Accession Number(s): [id number] cc: Brittnee Hanna MD EXAMINATION: MM SCREENING [...] in OV> 08/12/23 0340 DD/ 1539 TD/TT: Supervisor Backfilling: Procedure Note Donotuseinterpreter, Image - 08/12/2023 [facility] [address] [place] [address] Mammography Report Signed Patient: Cynthia Perry#: [id number] : 1965Acct:[id number] Age/Sex: 57 / FADM Date: 07/24/23 Loc: [facility] Attending Dr: Brittnee Hanna MD Ordering Physician: Brittnee Hanna MDResults: 1N egative Date of Service: 07/24/23Follow Up: 1 Year From Orig inal Mammogram Procedure(s): MM tomosynthesis screening BI Accession Number(s): [id number] cc: Brittnee Hanna MD EXAMINATION: MM SCREENING [...] in OV> 08/12/23 0340 DD/ 1539 TD/TT: Supervisor Backfilling: us Brittnee Hanna MD IMG BI PROCEDURES Edited R esult - Final * THINPREP TIS PAP AND HPV mRNA E6/E7, CT/NG, TRICH (05/16/2022 9:44 AM EDT) Chlamydia trachomatis RNA, TMA, Urogenital NOT DETECTED NOT DETECTED [employer]VERTED [employer] Clinical Information: None given [employer]VERTED [employer] COMMENT SEE COMMENT CONVERTE D [employer] Comment: The analytical performance characteristics of this assay, when used to test SurePath(TM) specimens have been determined by [employer]. The modifications have not been cleared or approved by the FDA. This assay has been validated pursuant to the CLIA regulations and is used for clinical purposes. For additional information, please refer to https://education.Top Hat/faq/ZNR600 (This link is being provided for information/ educational purposes only.) COMMENT SEE COMMENT CONVERTE D [employer] Comment: EXPLANATORY NOTE: The Pap is a [...] been evaluated with computer assisted technology. CONVERTED [employer] Product Manager Financial Services: SEE COMMENT [employer] Comment: RXB, CT(ASCP) CT screening location: [place] [address] HPV nRNA E6/E7 Not Detected Not Detected CONVERTED [employer] Comment: Methodology: Bell Valet-Mediated Amplification This assay detects E6/E7 viral messenger RNA (mRNA) from 14 high-risk HPV types (16,18,31,33,35,39,45,51,52,56,58,59,66,68). Cervical sources are required for HPV testing. If a vaginal source from a patient who has had a total hysterectomy with removal of cervix was submitted, please contact the testing laboratory for alternative testing options. For additional information, please refer to http://BBspace.Top Hat/faq/MXV765f6 (This link if provided for information/ educational [...] of this assay have been determined by [employer]. The modifications have not been cleared or approved by the FDA. This assay has been validated pursuant to the CLIA regulations and is used for clinical purposes. For additional information, please refer to http://BBspace.Top Hat/ faq/Trichomonastma (This link is being provided for [...] Blood Venous blood specimen / Unknown Result [facility] Historical Provider LAB BLOOD ORDERABLES Emelia l Result * Hepatitis C Antibody with Reflex to HCV, RNA, Quantitative, Real-Time PCR (02/22/2014) Blood Venous blood specimen / Unknown 02/22/2014 Historical Provider LAB BLOOD ORDERABLES Emelia l Result from Last 3 Months or Most Recently Relevant to Health Maintenance Insurance [address] [place] [id number] [facility] [address] [place] [phone] [place] [phone] [place] [phone] Advance Directives Documents on File Type Date Recorded Patient Cut Out Stitcher Expl anation Advance Directives and Living Will 04/07/2024 Health Care Proxy 04/07/24 Care Teams Retail Store Associate Relationship Specialty Start Date End Date [place], MD Brittnee [address] [place] [address] PCP - General Family Medicine 08/17/18 Martina Mancia OD [address] [place] [address] Optometry 07/26/24 Allyson Armando [address] [place] [address] 3rd [place] [address] Cardiology 01/03/25 Donna Sutton Stoneworking Belt SanderManager Social Responsibility 05/06/24 Bety Benson, [facility] Endocrinology Endocrinology 11/04/24
--- OUTSIDE RECORDS SUMMARY | 2025-05-23 18:00 | XMS_ITS | Encounter Summary ---
Author Organization [employer] Address [address] [place] [address] 7t [place] [address] Care Team Providers Care Engine Lathe Set Up Operator Tool Name Role Phone Brittnee Hanna MD Primary Care Provider +1- [phone] Di Hyde PharmD Unavailable Martina Mancia OD Unavailable [phone] Prabha, Allyson Unavailable Reason for Visit * Reason Comments Med Refill Encounter Details Date Type Department Care Team ([facility] st Contact Info) Description 02/18/2023 Refill [facility] MEDICINE [address] [place], [place] [phone] Brittnee Hanna MD [address] [place], [place] [phone] Type 2 diabetes mellitus with other circulatory complication, with long-term current use of insulin ([facility]) Social History Tobacco Use Types [...] 9.4(04/26/2025 12:19 PM EDT) No Di Hyde, Bo documented as of this encounter Visit Diagnoses Diagnosis Type 2 diabetes mellitus with other circulatory complication, with long-term current use of insulin (HCC) documented in this encounter Additional Health Concerns Assessment Noted Time PHQ-9 Depression Total Score: 21 023 9:47 AM EDT documented as of this encounter Care Teams Engine Lathe Set Up Operator Tool Relationship Specialty Start Date End Date Brittnee Hnana MD [address] [place] [address] PCP - General Family Medicine 08/17/18 Di Hyde, ShabbirD [address] [place] [address] Pharmacist Internal Medicine 01/06/23 08/31/24 Martina Mancia OD [address] [place] [phone] Optometry 07/26/24 Allyson Armando [address] [place] [address] [address] [place] [address] Cardiology 01/03/25 Donna Sutton PhytopathologistDesign Studio Consultant 05/06/24 Bety Benson NP [facility] Endocrinology Endocrinology 11/04/24 documented as of this encounter
--- OUTSIDE RECORDS SUMMARY | 2025-05-23 18:00 | XMS_ITS | Encounter Summary ---
Author Organization [employer] Address [address] [facility] 7t [place] [address] Care Team Providers Care Manager Internet Name Role Phone Brittnee Hanna MD Primary Care Provider [phone]- [phone] Di Hyde PharmD Unavailable Martina Mancia OD Unavailable Prabha, Allyson Unavailable Encounter Details Date Type Department Care Team (Late st Contact Info) Description 04/27/2024 Abstract [facility] MEDICINE [address] [place] [address] Brittnee Hanna MD [address] [place], [place] [phone] Social History Tobacco Use Types Packs/Day Years [...] as of this encounter Care Teams Manager Internet Relationship Specialty Start Date End Date Brittnee Hanna MD [address] [place] [address] PCP - General Family Medicine 08/17/18 Di Hyde, PharmD [address] [place] [address] Pharmacist Internal Medicine 01/06/23 08/31/24 Martina Mancia OD [address] [place] [address] Optometry 07/26/24 Allyson Armando [address]rd [place] [address] Cardiology 01/03/25 Donna Sutton Recruiting Team LeadValve Pipe Irrigator 05/06/24 Bety Benson, FUNERAL ARRANGER [facility] Endocrinology Endocrinology 11/04/24 documented as of this encounter
--- OUTSIDE RECORDS SUMMARY | 2025-05-23 18:00 | XMS_ITS | Encounter Summary ---
Author Organization [employer] Address [address] [facility] 7t [place] [address] Care Team Providers Care Blower And Compressor Assembler Name Role Phone Brittnee Hanna MD Primary Care Provider [phone]- [phone] Di Hyde PharmD Unavailable Martina Mancia OD Unavailable Prabha, Allyson Unavailable Encounter Details Date Type Department Care Team (Late st Contact Info) Description 09/22/2022 Abstract [facility] MEDICINE [address] [place] [address] Brittnee Hanna MD [address] [place] [address] Social History Tobacco Use Types Packs/Day Years [...] Blood Venous blood specimen / Unknown Result [facility] Provider LAB BLOOD ORDERABLES Emelia l Result * Basic Metabolic Panel (06/05/2022) Pathologist [facility] Creatinine 1.0 0.5 - 1.1 mg/dL Blood Venous blood specimen / Unknown Result [facility] Provider LAB BLOOD ORDERABLES Emelia l Result * (ABNORMAL) Lipid Panel, Standard (06/05/2022) Pathologist [facility] Triglycerides 163(A) 40 - 160 mg/dL Cholesterol 209(A) 0 - 200 mg/dL HDL Cholesterol 70 35 - 70 mg/dL LDL Cholesterol 111 mg/dL Blood Venous blood specimen / Unknown Result [facility] Provider LAB BLOOD ORDERABLES Emelia l Result * Pap Smear (05/16/2022 12:00 AM EDT) Swab Result [facility] Provider LAB CYTOLOGY ORDERABLES F inal Result [facility] * Colonoscopy (08/21/2020) Pathologist [facility] Colonoscopy hyperplastic polyp Dr. Olivarez Result [facility] Provider HEALTH MAINTENANCE Final Result * HIV-1 [...] documented as of this encounter Care Teams Blower And Compressor Assembler Relationship Specialty Start Date End Date Brittnee Hanna MD [address] [place] [address] PCP - General Family Medicine 08/17/18 Di Hyde PharmD [address] [place] [address] Pharmacist Internal Medicine 01/06/23 08/31/24 Martina Mancia OD [address] [place] [address] Optometry 07/26/24 Allyson Armando [address] 3rd [place] [address] Cardiology 01/03/25 Donna Sutton Senior Peoplesoft DeveloperJewel Supervisor 05/06/24 Bety Benson NP [facility] Endocrinology Endocrinology 11/04/24 documented as of this encounter
--- OUTSIDE RECORDS SUMMARY | 2025-05-23 18:00 | XMS_ITS | Encounter Summary ---
Author Organization [employer] Address [address] [facility] 7t [place] [address] Care Team Providers Care Associate Faculty Name Role Phone Brittnee Hanna MD Primary Care Provider [phone]- [phone] Di Hyde PharmD Unavailable Martina Mancia OD Unavailable Allyson Armando Unavailable Reason for Visit * Reason Onset Date Comments Appointment Request 07/18/2024 Encounter Details Date Type Department Care Team ([facility] st Contact Info) Description 07/18/2024 Telephone [facility] MEDICINE [address] [place], [place] [phone] Brittnee Hanna MD 230 [place] [address] Appointment Request Social History Tobacco Use Types [...] as of this encounter Care Teams Associate Faculty Relationship Specialty Start Date End Date Brittnee Hanna MD [address] [place] [address] PCP - General Family Medicine 08/17/18 Di Hyde, Bo [address] [place] [address] Pharmacist Internal Medicine 01/06/23 08/31/24 Martina Mancia OD [address] [place] [address] Optometry 07/26/24 Allyson Armando [address] [place] [address] 3rd [place] [address] Cardiology 01/03/25 Donna Sutton Stabilizer OperatorMarketing And Communications Officer 05/06/24 Bety Benson NP [facility] [place] Endocrinology Endocrinology 11/04/24 documented as of this encounter
--- OUTSIDE RECORDS SUMMARY | 2025-05-23 18:00 | XMS_ITS | Encounter Summary ---
Author Organization [employer] Address [address] [facility] 7t [place] [address] Care Team Providers Care Premium Representative Name Role Phone Brittnee Hanna MD Primary Care Provider [phone]- [phone] Tan Mancian OD Unavailable Allyson Armando Unavailable Reason for Visit * Reason Onset Date Comments CHARTPREP 05/18/2025 Encounter Details Date Type Department Care Team ([facility] st Contact Info) Description 05/18/2025 Telephone [facility] MEDICINE 230 [place] [address] Brittnee Hanna MD 230 [place] [address] CHARTPREP Social History Tobacco Use Types Packs/Day Years [...] encounter Miscellaneous Notes * Telephone Encounter - Doreen Carter [place] - 05/18/2025 11:15 AM EDT Chart Prep Labs: done Images: done Referrals: Cancelled 03/20 AND Rescheduled to 04/11/25 Cancelled and rescheduled for 06/13/25 @ 9:00 am Vaccines due: Covid, Flu, RSV, and Zoster Screenings: not applicable Overdue care gaps: Glucose documented in this encounter Plan of Treatment [...] documented as of this encounter Care Teams Premium Representative Relationship Specialty Start Date End Date Brittnee Hanna MD [address] [place] [address] PCP - General Family Medicine 08/17/18 Martina Mancia OD [address] [place] [address] Optometry 07/26/24 Allyson Armando [address] [place] [address] 3rd [place] [address] Cardiology 01/03/25 Donna Sutton Subscription AgentService Station Manager 05/06/24 Bety Benson NP [facility] Endocrinology Endocrinology 11/04/24 documented as of this encounter
--- OUTSIDE RECORDS SUMMARY | 2025-05-23 18:00 | XMS_ITS | Encounter Summary ---
Author Organization [employer] Address 75 [facility] 7t [place] [address] Care Team Providers Care Senior Embedded Software Engineer Name Role Phone Brittnee Hanna MD Primary Care Provider +1- [phone] GavinoMartina OD Unavailable [phone] Allyson Armando Unavailable Encounter Details Date Type Department Care Team (Latest Contact Info) Description 05/19/2025 Travel Social History Tobacco Use Types Packs/Day [...] documented as of this encounter Care Teams Senior Embedded Software Engineer Relationship Specialty Start Date End Date Brittnee Hanna MD 230 [place] [address] PCP - General Family Medicine 08/17/18 Martina Mancia OD [address] [place] [address] Optometry 07/26/24 Allyson Armando [address] [facility] 3rd [place] [address] Cardiology 01/03/25 Donna Sutton Buckle StringerSales Promotion Representative 05/06/24 Bety Benson NP [facility] Endocrinology Endocrinology 11/04/24 documented as of this encounter
--- OUTSIDE RECORDS SUMMARY | 2025-05-23 18:00 | XMS_ITS | Encounter Summary ---
Author Organization [employer] Address [address] [facility] 7t [place] [address] Care Team Providers Care Dural Mechanic Name Role Phone Brittnee Hanna MD Primary Care Provider +1- [phone] Di Hyde PharmD Unavailable [phone] Martina Mancia OD Unavailable Prabha, Allyson Unavailable Encounter Details Date Type Department Care Team (Late st Contact Info) Description 12/17/2022 Abstract [facility] MEDICINE 230 [place] [address] Brittnee Hanna MD [address] [place] [address] Social History Tobacco Use Types Packs/Day Years [...] documented as of this encounter Care Teams Dural Mechanic Relationship Specialty Start Date End Date Brittnee Hanna MD [address] [place] [address] PCP - General Family Medicine 08/17/18 Di Hyde PharmD [address] [place] [address] Pharmacist Internal Medicine 01/06/23 08/31/24 Martina Mancia OD [address] [place] [address] Optometry 07/26/24 Allyson Armando [address] [place] [address] Drive 3rd [place] [address] Cardiology 01/03/25 Donna Sutton Topographic ComputatorTrader 05/06/24 Bety Benson NP [facility] Endocrinology Endocrinology 11/04/24 documented as of this encounter
--- OUTSIDE RECORDS SUMMARY | 2025-05-23 18:00 | XMS_ITS | Encounter Summary ---
Author Organization [employer] Address [address] [facility] 7t [place] [address] Care Team Providers Care Health Analyst Name Role Phone Brittnee Hanna MD Primary Care Provider +1- [phone] Tan Mancian OD Unavailable [phone] PrabhaAllyson Unavailable Encounter Details Date Type Department Care Team ([facility] st Contact Info) Description 03/13/2025 Telephone [facility] [address] [place], [place] [phone] Brittnee Hanna MD 230 [place] [address] Social History Tobacco Use Types Packs/Day Years [...] documented as of this encounter Care Teams Health Analyst Relationship Specialty Start Date End Date Brittnee Hanna MD [address] [place] [address] PCP - General Family Medicine 08/17/18 Martina Mancia OD [address] [place] [address] Optometry 07/26/24 Allyson Armando [address] 3rd [place] [address] Cardiology 01/03/25 Donna Sutton Physician Office SpecialistChainstitch Sewing Machine Operator 05/06/24 Bety Benson NP [facility] Endocrinology Endocrinology 11/04/24 documented as of this encounter
--- OUTSIDE RECORDS SUMMARY | 2025-05-23 18:01 | XMS_ITS | Encounter Summary ---
Author Organization [employer] Address [address] [place] [address] 7t [place] [address] Care Team Providers Care Orthopedically Impaired Teacher Name Role Phone Brittnee Hanna MD Primary Care Provider +1- [phone] Di Hyde PharmD Unavailable Martina Mancia OD Unavailable [phone] Adolfo Armandon Unavailable Reason for Visit * Reason Onset Date Comments triage 07/21/2022 Encounter Details Date Type Department Care Team ([facility] st Contact Info) Description 07/21/2022 Telephone [facility] MEDICINE 230 [place], [place] [phone] Brittnee Hanna MD [address] [place] [address] triage Social History Tobacco Use Types Packs/Day [...] and depression since losing MH services with [facility]. Per pt has not had any follow up with therapist or psychiatrist. Was supposed to have an appt on 06/15 but when called to r/s was never answered. Has been without meds. Per pt denies any SI/HI. Just increased anxiety. Pt advised that no appts in clinic tomorrow. Pt to come into [facility] tomorrow to speak with on site [facility] clinician and see if [facility] provider (advised cannot guarantee Dr. Hanna) [...] accepted this outcome Please contact pt at [phone] speaks Marshallese documented in this encounter Plan of Treatment Not on file documented as of this encounter Visit Diagnoses Not on filedocumented in this encounter Care Teams Orthopedically Impaired Teacher Relationship Specialty Start Date End Date Brittnee Hanna MD [address] [place] [address] PCP - General Family Medicine 08/17/18 Di Hyde PharmD [address] [place] [address] Pharmacist Internal Medicine 01/06/23 08/31/24 Martina Mancia OD [address] [place] [address] Optometry 07/26/24 Allyson Armando [address] [place] [address] 3rd [place] [address] Cardiology 01/03/25 Donna Sutton Storeroom SupervisorLead Systems Developer 05/06/24 Bety Benson, [facility] Endocrinology Endocrinology 11/04/24 documented as of this encounter
--- OUTSIDE RECORDS SUMMARY | 2025-05-23 18:01 | XMS_ITS | Encounter Summary ---
Author Organization [employer] Address [address] [place] [address] 7t [place] [address] Care Team Providers Care Sales And Retail Management Recruiter Name Role Phone Brittnee Hanna MD Primary Care Provider +1- [phone] Di Hyde PharmD Unavailable Martina Mancia OD Unavailable [phone] Adolfo Armandon Unavailable Reason for Visit * Reason Comments Med Refill Encounter Details Date Type Department Care Team ([facility] st Contact Info) Description 05/12/2023 Refill [facility] [address] [place], [place] [phone] Cipriano Campa MD [address] [place] [address] Type 2 diabetes mellitus with other circulatory complication, with long-term current use of insulin ([facility]) Social History Tobacco Use Types Packs/Day [...] as of this encounter Care Teams Sales And Retail Management Recruiter Relationship Specialty Start Date End Date Brittnee Hanna MD [address] [place] [address] PCP - General Family Medicine 08/17/18 Di Hyde, PharmD [address] [place] [address] Pharmacist Internal Medicine 01/06/23 08/31/24 Martina Mancia OD [address] [place] [address] Optometry 07/26/24 Allyson Armando [address] [place] [address] 3[address] [place] [address] Cardiology 01/03/25 Donna Sutton Substation ElectricianMerchandising Director 05/06/24 Bety Benson NP [facility] Endocrinology Endocrinology 11/04/24 documented as of this encounter
--- OUTSIDE RECORDS SUMMARY | 2025-05-23 18:01 | XMS_ITS | Encounter Summary ---
Author Organization [employer] Address 75 [facility] 7t [place] [address] Care Team Providers Care Confidential Secretary Name Role Phone Brittnee Hanna MD Primary Care Provider [phone]- [phone] Tan Mancian OD Unavailable [phone] PrabhaAllyson Unavailable Encounter Details Date Type Department Care Team ([facility] st Contact Info) Description 02/14/2025 Telephone [facility] [address] [place], [place] [phone] Brittnee Hanna MD [address] [place] [address] Social History Tobacco Use Types Packs/Day Years [...] documented as of this encounter Care Teams Confidential Secretary Relationship Specialty Start Date End Date Brittnee Hanna MD [address] [place] [address] PCP - General Family Medicine 08/17/18 Martina Mancia OD [address] [place] [address] Optometry 07/26/24 Allyson Armando [address] 3rd [place] [address] Cardiology 01/03/25 Donna Sutton Insulation WorkerIndustrial Insulator 05/06/24 Bety Benson NP [facility] Endocrinology Endocrinology 11/04/24 documented as of this encounter
--- OUTSIDE RECORDS SUMMARY | 2025-05-23 18:01 | XMS_ITS | Encounter Summary ---
Author Organization [employer] Address [address] [facility] 7t [place] [address] Care Team Providers Care Meat Cutter Name Role Phone Brittnee Hanna MD Primary Care Provider [phone]- [phone] Di Hyde PharmD Unavailable Martina Mancia OD Unavailable [phone] Adolfo Armandon Unavailable Reason for Visit * Reason Comments Med Refill Encounter Details Date Type Department Care Team ([facility] st Contact Info) Description 07/21/[address] [facility] MED & PEDS [address] [place], [place] [phone] Brittnee Hanna MD [address] [place] [address] Mild intermittent asthma without complication Social History [...] documented as of this encounter Care Teams Meat Cutter Relationship Specialty Start Date End Date Brittnee Hanna MD [address] [place] [address] PCP - General Family Medicine 08/17/18 Di Hyde, PharmD [address] [place] [address] Pharmacist Internal Medicine 01/06/23 08/31/24 Martina Mancia OD [address] [place] [address] Optometry 07/26/24 Allyson Armando [address] 3rd [place] [address] Cardiology 01/03/25 Donna Sutton Director ValidationMarionette Performer 05/06/24 Bety Benson NP [facility] Endocrinology Endocrinology 11/04/24 documented as of this encounter
--- OUTSIDE RECORDS SUMMARY | 2025-05-23 18:01 | XMS_ITS | Encounter Summary ---
Author Organization [employer] Address 75 [facility] 7t [place] [address] Care Team Providers Care Museum Docent Name Role Phone Brittnee Hanna MD Primary Care Provider [phone]- [phone] Gavino Martina OD Unavailable [phone] Allyson Armando Unavailable Encounter Details Date Type Department Care Team ([facility] Contact Info) Description 05/18/2025 Telephone [facility] MEDICINE [address] [place] [address] Brittnee Hanna MD [address] [place] [address] Social History Tobacco Use Types Packs/Day Years [...] encounter Miscellaneous Notes * Telephone Encounter - Katya Benjamin RN - 05/18/2025 2:48 PM EDT Spoke with patient yesterday 05/17/[address] Taylor Pastrana Medical Records regarding patient request for letter to get her DOUBLER OPERATOR hours back. Patient was confused stating she has an evaluation with Davidjose alberto for someone to come to her house to do an evaluation soon. Today 05/18/25 I received a TC from Richelle Adams returning my call about davidjose albertous doing an evaluation for services. Richelle stated that patient is confused about the different companies and she spoke with her today to try to explain to her that the evaluation was done and due to the improvement in her mobility at that time herhours were decreased. I spoke with Dr Hanna about patient request for evaluation and she feels that the evaluation was done in the home by a regional trainer and we need to accept the results. If patient feels her condition warrants more hours due to a change in her condition that she will make a referral for physical therapy to help with her vertigo symptoms. Patient was notified by Richelle and is agreeable to PT referral. documented in this encounter Plan of Treatment [...] documented as of this encounter Care Teams Museum Docent Relationship Specialty Start Date End Date Brittnee Hanna MD [address] [place] [address] PCP - General Family Medicine 08/17/18 Martina Mancia OD [address] [place] [address] Optometry 07/26/24 Allyson Armando [address] [place] [address] 3rd [place] [address] Cardiology 01/03/25 Donna Sutton Party Plan Sales DirectorFine Unhairer 05/06/24 Bety Benson NP [facility] Endocrinology Endocrinology 11/04/24 documented as of this encounter
--- OUTSIDE RECORDS SUMMARY | 2025-05-23 18:01 | XMS_ITS | Encounter Summary ---
Author Organization [employer] Address 75 [facility] 7t [place] [address] Care Team Providers Care Certified Nuclear Medicine Technologist Name Role Phone Brittnee Hanna MD Primary Care Provider [phone]- [phone] Martina Mancia OD Unavailable [phone] Allyson Armando Unavailable Encounter Details Date Type Department Care Team ([facility] Contact Info) Description 11/01/2024 Orders Only [facility] MEDICINE [address] [place] [address] Nguyen Orourke MD [address] [place] [address] Type 2 diabetes mellitus with other circulatory complication, with long-term current use of insulin ([facility]) Social History Tobacco Use Types [...] documented as of this encounter Care Teams Certified Nuclear Medicine Technologist Relationship Specialty Start Date End Date Brittnee Hanna MD [address] [place] [address] PCP - General Family Medicine 08/17/18 Martina Mancia OD [address] [place] [address] Optometry 07/26/24 Allyson Armando [address] [place] [address] 3[address] [place] [address] Cardiology 01/03/25 Donna Sutton Carboy FillerGrey Goods Marker 05/06/24 Bety Benson NP [facility] Endocrinology Endocrinology 11/04/24 documented as of this encounter
== END 2025-05-23 15:31 | disposition home or self-care (01) ==
LOC: HO.ENCR 14:43
PROVIDERS: PCP Physician Assistant Medical; Visit Provider Physician Assistant Medical
DX: E11.42 Type 2 diabetes mellitus with diabetic polyneuropathy (principal); Z79.4 Long term (current) use of insulin; I10 Essential (primary) hypertension; E78.00 Pure hypercholesterolemia, unspecified

== ENCOUNTER → 2025-05-23 14:43 | Outpatient (BNVA) | payer MEDICAID, SELFPAY | PROVIDERS: PCP Physician Assistant Medical; Visit Provider Physician Assistant Medical | DX: E11.9 Type 2 diabetes mellitus without complications (principal); Z79.4 Long term (current) use of insulin; I10 Essential (primary) hypertension; E78.00 Pure hypercholesterolemia, unspecified | CPT/HCPCS: 82947; 99212 ==

== ENCOUNTER 2025-07-25 14:33 | Outpatient (AMB) | payer MEDICAID, SELFPAY ==
[2025-07-25 14:43] VITALS: BP 108/52; PULSE 75; O2SAT 98; BMI 22.4
--- NOTE | 2025-07-25 14:43 | MHC.OFFVIS ---
Vital Signs 07/25/25 14:43 Height 5 ft 2 in Weight 122 lb 5.705 oz BMI 22.4 BP 108/52 L Blood Pressure Location Lt brachial Position Sitting Pulse 75 Pulse Source Pulse Oximeter Pulse Oximetry (%) 98 Oxygen Delivery Method Room Air Intake Visit Reasons: DMT2 Follow-Up Intake Note: Patient present today to follow up on Type 2 Diabetes Mellitus. 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 blood-glucose,telegraph service rater,cont (FreeStyle Ric 3 [place]) Use daily to monitor blood glucose levels continuously. dulaglutide (Trulicity) 4.5 mg (0.5 mL) subcut QWEEK empagliflozin (Jardiance) 25 mg PO QAM ferrous sulfate (FeroSul) 325 mg PO Q OTHER DAY fluticasone propion-salmeterol 250-50 mcg/dose (Advair Diskus) 1 puff inhalation BID gabapentin 100 mg PO BID glucose (Dex4 Glucose Quick Dissolve) 16 grams (4 x 4 gram) PO Q15M PRN ibuprofen 600 mg PO TID PRN insulin degludec (Tresiba FlexTouch U-200 insulin) 40 units subcut BEDTIME insulin lispro subcutaneously 3 times per day with meals; 16 units before breakfast and lunch and 18 units before dinner isosorbide mononitrate ER 30 mg PO DAILY lancets (TRUEplus Lancets) As directed lisinopril 20 mg PO DAILY loratadine 1 tab PO QAM metoprolol succinate ER 1 tab PO QAM olanzapine 7.5 mg PO BEDTIME pantoprazole (Protonix) 20 mg PO BID pen needle, diabetic (Pentips Pen Needle) As directed prazosin 1 mg PO BEDTIME tiotropium bromide (Spiriva with HandiHaler) 1 cap inhalation DAILY HPI Comments Details: This is a 59-year-old female with a past medical history of type 2 diabetes, depression, CKD stage 3, asthma-COPD, CAD (STEMI 04/15/2014 requiring PCI with JENISE to proximal LAD), decreased LVEF, gastritis, dizziness and falls and tobacco use presenting for diabetic management. Angolan video wood buffer: Michael [phone] She was diagnosed with type 2 diabetes 17 years ago. Family history of Type I: none Family history of Type 2: parents Patient has laboratory proven type 2 diabetes. History of DKA - admitted 03/17/2022 for DKA in the setting of acute cystitis. Hemoglobin a1c 9.2% down from 9.4%. Hemoglobin A1c was 12.7 % on 10/04/24. Reviewed Ric 3+ data for the past 14 days G ME 8.8% Very high 39% High 36% Target range 22% Low 2% Very low 1% Pattern of hypoglycemia in the morning and afternoon and hyperglycemia throughout the day and night. She has a postprandial increase after dinner. Patient says when she checks a fingerstick her blood sugar is never low. She is also having a difficult time getting her sensors from the pharmacy every month, and she would like to change to mail order. [facility] to [facility]. Current medication regimen: Tresiba 40 units nightly, lispro 16 units before meals, Trulicity 3 mg weekly, Jardiance 25 mg daily. Past medications: Patient denies prior medications. Hypoglycemia symptoms: No interval episodes. She has glucose tablets. Hyperglycemia symptoms: tired, dry mouth, polydipsia, polyuria Eye exam: October 2024 Microvascular complications: neuropathy on gabapentin, nephropathy, no known retinopathy Macrovascular complications: Coronary artery disease Patient has hyperlipidemia, on statin. ROS: Constitutional: Denies fevers, chills, night sweats. Denies fatigue. Eyes: Denies vision changes, denies blurry vision Respiratory: No shortness of breath, cough or sputum production. Cardiovascular: No chest pain, chest pressure or chest discomfort. No palpitations or pedal edema. Gastrointestinal: Denies nausea, vomiting, diarrhea, abdominal pain, acid reflux. Denies constipation. Neurologic: No headache or dizziness. She endorses neuropathy in her feet. Endocrine: See HPI Physical exam: Constitutional: Alert, in no distress. Eyes: Pupils are equal, round and reactive to light. Neck: Supple, Full range of motion. No lymphadenopathy. No palpable thyroid masses. Respiratory: Clear to auscultation. Cardiovascular: S1 S2 regular. No murmurs. No carotid bruits. 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 terminal operator use of insulin Symptomatic anemia GI bleed Diabetes Anxiety Depression Asthma History of heart attack CAD (coronary artery disease) Hypercholesteremia HTN (hypertension) Surgical History Stented coronary artery Hx of colonoscopy (04/11/14) Family History Father Diabetes Hypercholesteremia HTN (hypertension) Mother HTN (hypertension) Diabetes Hypercholesteremia Brother HTN (hypertension) Diabetes Social History Household Members: None Housing: House Do you presently have visiting nurse or other home services: Yes (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) Alcohol intake: current Alcohol intake frequency: does not drink Patient Tobacco Use Status: Former Tobacco user service: No Current occupational status: disabled Physical Exam Vital Signs: Last Vital Signs Pulse 75 07/25/25 14:43 BP 108/52 L 07/25/25 14:43 Pulse Ox 98 07/25/25 14:43 Oxygen Delivery Method Room Air 07/25/25 14:43 BMI result Body Mass Index 22.4 Office Procedures Glucose Monitoring Details Details: See HPI 96993 - Glucose monitoring, continuous-physician I&R Procedure code (CPT) selection complete Results AMB Hemoglobin A1c AMB Hemoglobin A1c 9.2 % Last Edit by MONTANA Villegas on 07/25/25 15:02 Results Reviewed Results Reviewed: Laboratory Last Values Glucose (Clinic) 291 mg/dL (60-115) H 07/25/25 14:49 Hgb A1c (Clinic) 9.2 % (4.0-6.0) H 07/25/25 15:02 Laboratory Tests 01/07/22 06/18/24 09/19/24 13:22 12:51 10:00 Creatinine 0.94 1.23 Estimated GFR > 60 44 B-Natriuretic Peptide 128 H Triglycerides 206 H Cholesterol 141 LDL Cholesterol, Calc 65 HDL Cholesterol 35 L TSH 0.76 Urine Creatinine 161.00 Urine Microalbumin 17.0 Microalb/Creat Ratio 10.5 Laboratory Tests 10/06/24 13:46 C-Peptide 1.37 Islet Cell Ab Screen NEGATIVE JEREMIAS Antibody <5 Laboratory Tests 03/03/25 14:30 Creatinine 0.95 Estimated GFR 60 AST 24 ALT 27 Triglycerides 172 H Cholesterol 163 LDL Cholesterol, Calc 88 HDL Cholesterol 41 Assessment & Plan Assessment & Plan (1) Type II diabetes with correction use of insulin: Code(s): E11.9 - Type 2 diabetes mellitus without complications; Z79.4 - terminal carman (current) use of insulin Category: Medical Qualifiers: Diabetes mellitus complication status: with neurologic complications Diabetes mellitus complication detail: with polyneuropathy Qualified Code(s): E11.42 - Type 2 diabetes mellitus with diabetic polyneuropathy; Z79.4 - terminal carman (current) use of insulin (2) Hypercholesteremia: Code(s): E78.00 - Pure hypercholesterolemia, unspecified Category: Medical Plan: LDL at goal less than 70. Continue atorvastatin 80 mg. Plan In summary this is a 59-year-old diabetic female with poor albeit improving glycemic control on basal bolus insulin, Trulicity and Jardiance. Continue Tresiba 40 units daily. Continue lispro 16 units before breakfast and lunch. Administer 18 units before dinner. Increase Trulicity to 4.5 mg weekly. Continue Jardiance to 25 mg daily. Her sensor has been alerting her to false lows. Discussed recent recall. I sent a new prescription for sensors to [facility]. Patient was given the contact number to confirm delivery. Patient given sample Irc 3+ today. If you experience low blood sugar, treat this by eating a chewable fruit candy like skittles or jelly beans (about 8 pieces), 4 ounces (1/2 cup) of fruit juice (not diet), 1 tablespoon of honey or 4 glucose tablets or a 15 g glucose gel packet. If your blood sugar is under 55, take double the amount of one of the above. Recheck your blood sugar in [address] if she does not have a reliable way to check her blood sugar or has symptoms of hypoglycemia. Discussed pathophysiology of Type II Diabetes Mellitus with the patient in detail.? I explained the correction risks and complications associated with uncontrolled diabetes including nephropathy, neuropathy, peripheral vascular disease, retinopathy, increased risk of heart disease and stroke.? She wants to finish her current prescription for Trulicity (has 3 injections left). Follow up in 2 months for type 2 diabetes. Orders: Orders AMB Hemoglobin A1c Today E11.42 - Type 2 diabetes mellitus with diabetic polyneuropathy, Z13.9 - Encounter for screening, unspecified, Z79.4 - jail (current) use of insulin AMB Glucose Monitoring Today E11.9 - Type 2 diabetes mellitus without complications Medications: New dulaglutide (Trulicity) 4.5 mg (0.5 mL) subcut QWEEK 2 mL 3RF Refilled blood-glucose sensor (FreeStyle Ric 3 Plus Sensor device) Apply 1 new sensor every 15 days as directed to monitor blood glucose continuously. 6 ea 3RF Discontinued dulaglutide (Trulicity) Discontinued Reason: Doctor's Order 3 mg (0.5 mL) subcut QWEEK 2 mL 2RF Patient Instructions: [facility] : Current regimen: Tresiba 40 units nightly, lispro 16 units before breakfast and lunch and 18 units before dinner, increase Trulicity to 4.5 mg weekly and continue Jardiance 25 mg daily. Coding Level of Care Code Est Pt Level 4 (20637) Diagnoses Type 2 diabetes mellitus with diabetic polyneuropathy, with long-term current use of insulin E11.42; Z79.4 Diabetes mellitus complication status: with neurologic complications Diabetes mellitus complication detail: with polyneuropathy Hypercholesteremia E78.00 CPT Codes Details - CPT: 22987 - Glucose monitoring, continuous-physician I&R ([id number])
[2025-07-25 14:54] LABS: Glucose, Whole Blood 291 mg/dL (60-115)
--- OUTSIDE RECORDS SUMMARY | 2025-07-25 20:28 | XMS_ITS | Encounter Summary ---
Author Organization [employer] Address 75 [facility] 7t [place] [address] Care Team Providers Care Ventilator Specialist Name Role Phone Brittnee Hanna MD Primary Care Provider [phone] Di Hyde PharmD Unavailable Martina Mancia OD Unavailable Adolfo Armandon Unavailable Encounter Details Date Type Department Care Team ([facility] Contact Info) Description 12/17/2022 Abstract [facility] MEDICINE [address] [place] [phone] Brittnee Hanna MD [address] [place] [address] [phone] Social History Tobacco Use Types Packs/Day Years [...] Upcoming Encounters Date Type Department Care Team ([facility] Contact Info) Description 08/02/2025 10:30 AM EST Office Visit [facility] MEDICINE [address] [place] [address] [phone] Brittnee Hanna MD [address] [place] [address] documented as of this encounter Visit Diagnoses Not on filedocumented in this encounter Additional Health Concerns Assessment Noted Time PHQ-9 Depression Total Score: 0 09/22/19 23 9:47 AM EST documented as of this encounter Care Teams Ventilator Specialist Relationship Specialty Start Date End Date Brittnee Hanna MD [address] [place] [address] PCP - General Family Medicine 08/17/18 Di Hyde, ShabbirD [address] [place] [address] Pharmacist Internal Medicine 01/06/23 08/31/24 Martina Mancia OD [address] [place] [address] Optometry 07/26/24 Allyson Armando [address] [place] [address] [address] [place] [address] Cardiology 01/03/25 Donna Sutton Job PrinterLive Truck Technician 05/06/24 Bety Benson, [facility] Endocrinology Endocrinology 11/04/24 documented as of this encounter
--- OUTSIDE RECORDS SUMMARY | 2025-07-25 20:28 | XMS_ITS | Encounter Summary ---
Author Organization [employer] Address 75 [facility] 7t [place] [address] Care Team Providers Care Bottle Assembler Name Role Phone Brittnee Hanna MD Primary Care Provider [phone] Tan Mancian OD Unavailable [phone] PrabhaAllyson Unavailable Encounter Details Date Type Department Care Team ([facility] st Contact Info) Description 03/13/2025 Telephone [facility] [address] [place], [place] [phone] Brittnee Hanna MD [address] [place] [address] Social History Tobacco Use Types Packs/Day Years [...] Care Team (Late st Contact Info) Description 08/02/2025 10:30 AM EST Office Visit [facility] MEDICINE [address] [place] [address] Brittnee Hanna MD [address] [place] [address] documented as of this encounter Goals Goal [...] documented as of this encounter Care Teams Bottle Assembler Relationship Specialty Start Date End Date Brittnee Hanna MD [address] [place] [address] PCP - General Family Medicine 08/17/18 Martina Mancia OD [address] [place] [address] Optometry 07/26/24 Allyson Armando [address] 3rd [place] [address] Cardiology 01/03/25 Donna Sutton Telecom Network ManagerAgronomy Research Manager 05/06/24 Bety Benson [facility] Endocrinology Endocrinology 11/04/24 documented as of this encounter
--- OUTSIDE RECORDS SUMMARY | 2025-07-25 20:28 | XMS_ITS | Encounter Summary ---
Author Organization [employer] Address [address] [place] [address] 7t [place] [address] Care Team Providers Care Historiography Professor Name Role Phone Brittnee Hanna MD Primary Care Provider [phone] Di Hyde PharmD Unavailable Martina Mancia OD Unavailable [phone] Prabha, Allyson Unavailable Reason for Visit * Reason Comments Med Refill Encounter Details Date Type Department Care Team ([facility] st Contact Info) Description 02/18/[address] [facility] MEDICINE [address] [place], [place] [phone] Brittnee Hanna MD [address] [place], [place] [phone] Type 2 diabetes mellitus with other circulatory complication, with long-term current use of insulin ([facility]) Social History Tobacco Use Types [...] Description 08/02/2025 10:30 AM EST Office [address] [facility] MEDICINE [address] [place] [address] Brittnee Hanna MD [address] [place] [address] documented as of this encounter Goals Goal [...] documented as of this encounter Care Teams Historiography Professor Relationship Specialty Start Date End Date Brittnee Hanna MD [address] [place] [address] PCP - General Family Medicine 08/17/18 Di Hyde, PharmD [address] [place] [address] Pharmacist Internal Medicine 01/06/23 08/31/24 Martina Mancia OD [address] [place] [address] Optometry 07/26/24 Allyson Armando [address] [place] [address] 3rd [place] [address] Cardiology 01/03/25 Donna Sutton Groundwater Monitoring TechnicianAssociate Merchandise Planner 05/06/24 Bety Benson NP [facility] Endocrinology Endocrinology 11/04/24 documented as of this encounter
--- OUTSIDE RECORDS SUMMARY | 2025-07-25 20:29 | XMS_ITS | Encounter Summary ---
Author Organization [employer] Address 75 [facility] 7t [place] [address] Care Team Providers Care Locker Room Supervisor Name Role Phone Brittnee Hanna MD Primary Care Provider [phone] Di Hyde PharmD Unavailable Martina Mancia OD Unavailable [phone] Adolfo Armandon Unavailable Reason for Visit * Reason Comments Med Refill Encounter Details Date Type Department Care Team ([facility] st Contact Info) Description 07/21/2023 Refill [facility] MED & PEDS [address] [place], [place] [phone] Brittnee Hanna MD [address] [place] [address] Mild intermittent asthma without complication Social History [...] Description 08/02/2025 10:30 AM EST Office Visit [facility] MEDICINE [address] [place] [address] Brittnee Hanna MD [address] [place] [address] documented as of this encounter Goals Goal [...] documented as of this encounter Care Teams Locker Room Supervisor Relationship Specialty Start Date End Date Brittnee Hanna MD [address] [place] [address] PCP - General Family Medicine 08/17/18 Di Hyde, ShabbirD [address] [place] [address] Pharmacist Internal Medicine 01/06/23 08/31/24 Martina Mancia OD [address] [place] [address] Optometry 07/26/24 Allyson Armando [address] [facility] [address] 3rd Floor [place] [address] Cardiology 01/03/25 Donna Sutton Global Regulatory LeadLegislative Advocate 05/06/24 Bety Benson, [facility] Endocrinology Endocrinology 11/04/24 documented as of this encounter
--- OUTSIDE RECORDS SUMMARY | 2025-07-25 20:29 | XMS_ITS | Encounter Summary ---
Author Organization [employer] Address 75 [facility] 7t [place] [address] Care Team Providers Care Youth Agent Name Role Phone Brittnee Hanna MD Primary Care Provider +1- [phone] Tan Mancian OD Unavailable [phone] PrabhaAllyson Unavailable Encounter Details Date Type Department Care Team ([facility] st Contact Info) Description 02/14/2025 Telephone [facility] [address] [place], [place] [phone] Brittnee Hanna MD 230 [place] [address] Social History Tobacco Use Types Packs/Day Years [...] 10:30 AM EST Office Visit [facility] 230 [place] [address] Brittnee Hanna MD [address] [place] [address] documented as of this encounter Goals Goal [...] documented as of this encounter Care Teams Youth Agent Relationship Specialty Start Date End Date Brittnee Hanna MD 230 [place] [address] PCP - General Family Medicine 08/17/18 Martina Mancia OD [address] [place] [address] Optometry 07/26/24 Allyson Armando [address] 3rd [place] [address] Cardiology 01/03/25 Donna Sutton Butt TrimmerShoe Coverer 05/06/24 Bety Benson CORPORATE CONSULTANT [facility] [place] Endocrinology 11/04/24 documented as of this encounter
--- OUTSIDE RECORDS SUMMARY | 2025-07-25 20:29 | XMS_ITS | Encounter Summary ---
Author Organization [employer] Address 75 [facility] 7t [place] [address] Care Team Providers Care Natural Gas Trader Name Role Phone Brittnee Hanna MD Primary Care Provider +1- [phone] Tan Mancian OD Unavailable Adolfo Armandon Unavailable Reason for Visit * Reason Onset Date Comments PT1 06/05/2025 Encounter Details Date Type Department Care Team ([facility] st Contact Info) Description 06/05/2025 Telephone [facility] 230 [place] [address] Brittnee Hanna MD 230 [place] [address] PT1 Social History Tobacco Use Types Packs/Day Years [...] encounter Miscellaneous Notes * Telephone Encounter - Diogenes Yañez - 06/05/2025 11:36 AM EDT Patient calling requesting PT1 Home Address verified: Y/N: Yes Provider name or facility name: [address] [place] [address]. Family dental Escort needed: Y/N: Yes Do you have a wheelchair: Y/N: No Visits: (3x month) documented in this encounter Plan of Treatment Upcoming Encounters Date Type Department Care Team (Late st Contact Info) Description 08/02/2025 10:30 AM EST Office Visit [facility] [address] [place] [address] Brittnee Hanna MD [address] [place] [address] documented as of this encounter Goals Goal Patient Goal Type Associated Problems Recent Progress Patient-Stated? Author Blood Pressure < 140/90 Blood Pressure 122/80(2024 11:16 AM EDT) No Bhupendras-GambDaily andersensa, PharmD Hemoglobin A1c < 7 Result Component 9.4( 12:19 PM EDT) No Bhupendras-Gambl e, Di, PharmD documented as of this encounter Visit Diagnoses Not on filedocumented in this encounter Additional Health Concerns Assessment Noted Time PHQ-9 Depression Total Score: 17 025 11:40 AM EDT documented as of this encounter Care Teams Natural Gas Trader Relationship Specialty Start Date End Date Brittnee Hanna MD 230 [place] [address] PCP - General Family Medicine 08/17/18 Martina Mancia OD [address] [place] [address] Optometry 07/26/24 Allyson Armando [address] [place] [address] 3rd [place] [address] Cardiology 01/03/25 Donna Sutton Dispatcher Maintenance ServiceShipping Hand 05/06/24 Bety Benson NP [facility] [place] Endocrinology Endocrinology 11/04/24 documented as of this encounter
--- OUTSIDE RECORDS SUMMARY | 2025-07-25 20:29 | XMS_ITS | Encounter Summary ---
Author Organization [employer] Address [address] [place] [address] 7t [place] [address] Care Team Providers Care Automation And Controls Supervisor Name Role Phone Brittnee Hanna MD Primary Care Provider +1- [phone] Di Hyde PharmD Unavailable Martina Mancia OD Unavailable [phone] Adolfo Armandon Unavailable Reason for Visit * Reason Onset Date Comments triage 07/21/2022 Encounter Details Date Type Department Care Team ([facility] st Contact Info) Description 07/21/2022 Telephone [facility] MED[facility]INE [address] [place], [place] [phone] Brittnee Hanna MD 230 [place] [address] triage Social History Tobacco Use Types Packs/Day [...] and depression since losing MH services with [facility]. Per pt has not had any follow up with therapist or psychiatrist. Was supposed to have an appt on 06/15 but when called to r/s was never answered. Has been without meds. Per pt denies any SI/HI. Just increased anxiety. Pt advised that no appts in clinic tomorrow. Pt to come into [facility] tomorrow to speak with on site [facility] clinician and see if [facility] provider (advised cannot guarantee Dr. Hanna) [...] accepted this outcome Please contact pt at [phone] speaks Italian documented in this encounter Plan of Treatment Upcoming Encounters Date Type Department Care Team (Late st Contact Info) Description 08/02/2025 10:30 AM EST Office Visit [facility] [address] [place] [address] Brittnee Hanna MD [address] [place] [address] documented as of this encounter Visit Diagnoses Not on filedocumented in this encounter Care Teams Automation And Controls Supervisor Relationship Specialty Start Date End Date Brittnee Hanna MD [address] [place] [address] PCP - General Family Medicine 08/17/18 Di Hyde PharmD [address] [place] [address] Pharmacist Internal Medicine 01/06/23 08/31/24 Martina Mancia OD [address] [place] [address] [phone] Optometry 07/26/24 Allyson Armando [address] [place] [address] Drive 3rd [place] [address] Cardiology 01/03/25 Donna Sutton Deputy CommissionerDefensive Line Coach 05/06/24 Bety Benson NP [facility] Endocrinology Endocrinology 11/04/24 documented as of this encounter
--- OUTSIDE RECORDS SUMMARY | 2025-07-25 20:29 | XMS_ITS | Encounter Summary ---
Author Organization [employer] Address 75 [facility] 7t [place] [address] Care Team Providers Care Account Analyst Name Role Phone Brittnee Hanna MD Primary Care Provider +1- [phone] Martina Mancia OD Unavailable [phone] Allyson Armando Unavailable Encounter Details Date Type Department Care Team ([facility] Contact Info) Description 11/01/2024 Orders Only [facility] 230 [place] [address] Nguyen Orourke MD [address] [place] [address] Type 2 diabetes mellitus with other circulatory complication, with long-term current use of insulin ([facility]) Social History Tobacco Use Types Packs/Day [...] Description 08/02/2025 10:30 AM EST Office Visit [facility] [address] [place] [address] Brittnee Hanna MD [address] [place] [address] documented as of this encounter Goals Goal Patient Goal Type Associated Problems Recent Progress Patient-Stated? Author Blood Pressure < 140/90 Blood Pressure 122/80(2024 11:16 AM EDT) No Bhupendras-Betzaidal Daily alfarosa, PharmD Hemoglobin A1c < 7 [...] documented as of this encounter Care Teams Account Analyst Relationship Specialty Start Date End Date Brittnee Hanna MD [address] [place] [address] PCP - General Family Medicine 08/17/18 Martina Mancia OD [address] [place] [address] Optometry 07/26/24 Allyson Armando [address] [place] [address] 3rd [place] [address] Cardiology 01/03/25 Donna Sutton Field Support EngineerIt Data Architect 05/06/24 Bety Benson, AGUSTO [facility] Endocrinology Endocrinology 11/04/24 documented as of this encounter
--- OUTSIDE RECORDS SUMMARY | 2025-07-25 20:29 | XMS_ITS | Encounter Summary ---
Author Organization [employer] Address 75 [facility] 7t [place] [address] Care Team Providers Care Licensed Physical Therapy Assistant Name Role Phone Brittnee Hanna MD Primary Care Provider +1- [phone] Di Hyde PharmD Unavailable Martina Mancia OD Unavailable Prabha, Allyson Unavailable Encounter Details Date Type Department Care Team (Late st Contact Info) Description 04/27/2024 Abstract [facility] 230 [place] [address] Brittnee Hanna MD 230 [place], [place] [phone] Social History Tobacco Use Types Packs/Day Years [...] Description 08/02/2025 10:30 AM EST Office Visit [facility]INE [address] [place] [address] Brittnee Hanna MD [address] [place] [address] documented as of this encounter Goals Goal [...] documented as of this encounter Care Teams Licensed Physical Therapy Assistant Relationship Specialty Start Date End Date Brittnee Hanna MD [address] [place] [address] PCP - General Family Medicine 08/17/18 Di Hyde, PharmD [address] [place] [address] Pharmacist Internal Medicine 01/06/23 08/31/24 Martina Mancia OD [address] [place] [address] Optometry 07/26/24 Allyson Armando [address] [place] [address] 3rd [place] [address] Cardiology 01/03/25 Donna Sutton Glazing Department SupervisorTypesetter Apprentice 05/06/24 Bety Benson, AGUSTO C Endocrinology Endocrinology 11/04/24 documented as of this encounter
--- OUTSIDE RECORDS SUMMARY | 2025-07-25 20:29 | XMS_ITS | Encounter Summary ---
Author Organization [employer] Address [address] [place] [address] 7t [place] [address] Care Team Providers Care Scouring Train Operator Chief Name Role Phone Brittnee Hanna MD Primary Care Provider +1- [phone] Di Hyde PharmD Unavailable Martina Mancia OD Unavailable Prabha, Allyson Unavailable Encounter Details Date Type Department Care Team ([facility] Contact Info) Description 08/25/2022 Orders Only [facility] MED & PEDS [address] [place], [place] [phone] Jeana Vital LPN Social History Tobacco Use [...] Department Care Team (Late Contact Info) Description 08/02/2025 10:30 AM EST Office Visit [facility] MEDICINE 230 [place], [place] [phone] Brittnee Hanna MD [address] [place], [place] [phone] documented as of this encounter Procedures Procedure Name Priority Date/Time Associated Diagnosis Comments HEPATIC FUNCTION PANEL Routine 07/21/2023 12:47 PM EST documented in this encounter Results * (ABNORMAL) Hepatic Function Panel (07/21/2023 12:47 PM EST) Bilirubin, Total 0.3 0.0 - 1.0 mg/dL [facility] Bilirubin, Direct 0.1 0.0 - 0.5 mg/dL [facility] Aspartate Amino Transferase 18 5 - 31 U/L [facility] Alanine Aminotransferase 33(H) 0 - 31 U/L [facility] Total Protein 7.4 6.5 - 8.0 g/dL [facility] Albumin Level 4.3 3.5 - 5.0 g/dL [facility] Alkaline Phosphatase 142(H) 39 - 117 U/L [facility] 07/21/2023 12:4 7 PM EST 07/21/2023 3:59 PM EST Brittnee Hanna MD LAB BLOOD ORDERABLES Final Result Performing Organization Address City/State/[facility] Co de Phone Number [facility] [address] [place] [address] [phone] documented in this encounter Visit Diagnoses Not on filedocumented in this encounter Care Teams Scouring Train Operator Chief Relationship Specialty Start Date End Date Brittnee Hanna MD [address] [place] [address] PCP - General Family Medicine 08/17/18 Di Hyde PharmD [address] [place] [address] Pharmacist Internal Medicine 01/06/23 08/31/24 Martina Mancia OD [address] [place] [address] Optometry 07/26/24 Allyson Armando [address] 3rd [place] [address] Cardiology 01/03/25 Donna Sutton Customer Care Voice ConsultantBuilding Maintenance Technician 05/06/24 Bety Benson NP [facility] Endocrinology Endocrinology 11/04/24 documented as of this encounter
--- OUTSIDE RECORDS SUMMARY | 2025-07-25 20:29 | XMS_ITS | Encounter Summary ---
Author Organization [employer] Address 75 [facility] 7t [place] [address] Care Team Providers Care Fire Safety Inspector Name Role Phone Brittnee Hanna MD Primary Care Provider +1- [phone] Di Hyde PharmD Unavailable Martina Mancia OD Unavailable Adolfo Armandon Unavailable Reason for Visit * Reason Comments Med Refill Encounter Details Date Type Department Care Team ([facility] Contact Info) Description 05/12/2023 Refill [facility] MED & PEDS [address] [place], [place] [phone] Cipriano Campa MD 230 [place] [address] Type 2 diabetes mellitus with other circulatory complication, with long-term current use of insulin ([facility]) Social History Tobacco Use [...] Upcoming Encounters Date Type Department Care Team ([facility] Contact Info) Description 08/02/2025 10:30 AM EST Office Visit [facility] MEDICINE [address] [place] [address] Brittnee Hanna MD [address] [place] [address] documented as of this encounter Goals Goal [...] documented as of this encounter Care Teams Fire Safety Inspector Relationship Specialty Start Date End Date Brittnee Hanna MD [address] [place] [address] PCP - General Family Medicine 08/17/18 Di Hyde, PharmD [address] [place] [address] Pharmacist Internal Medicine 01/06/23 08/31/24 Martina Mancia OD [address] [place] [address] Optometry 07/26/24 Allyson Armando [address] [place] [address] 3rd [place] [address] Cardiology 01/03/25 Donna Sutton Reading TeacherDirector Fixed Income 05/06/24 Bety Benson NP [facility] Endocrinology Endocrinology 11/04/24 documented as of this encounter
--- OUTSIDE RECORDS SUMMARY | 2025-07-25 20:29 | XMS_ITS | Encounter Summary ---
Author Organization [employer] Address 75 [facility] 7t [place] [address] Care Team Providers Care Training Program Manager Name Role Phone Brittnee Hanna MD Primary Care Provider +1- [phone] Tan Mancian OD Unavailable [phone] Adolfo Armandon Unavailable Reason for Visit * Reason Comments Med Refill Encounter Details Date Type Department Care Team ([facility] st Contact Info) Description 07/18/2025 Refill [facility] MEDICINE 230 [place] [address] Brittnee Hanna MD [address] [place] [address] Seasonal allergies Social History Tobacco Use Types [...] Description 08/02/2025 10:30 AM EST Office Visit [facility] MEDICINE 230 [place] [address] Brittnee Hanna MD [address] [place] [address] documented as of this encounter Goals Goal Patient Goal Type Associated Problems Recent Progress Patient-Stated? Author Blood Pressure < 140/90 Blood Pressure 122/80(2024 11:16 AM EDT) No Di Meyers, PharmD Hemoglobin A1c < 7 Result Component 9.4( 12:19 PM EDT) No Di Meyers, PharmJohnathan Help patients manage their type 2 diabetes Care Plan Help patients manage their type 2 diabetes No Jeana Alejo PharmJohnathan Weekly blood pressure task Care Plan Weekly blood pressure task No Jeana Alejo PharmJohnathan Help patients manage their type 2 diabetes Care Plan Help patients manage their type 2 diabetes No Jeana Alejo, PharmJohnathan Patient has chronic kidney disease Care Plan Patient has chronic kidney disease No Jeana Alejo, PharmJohnathan Weekly blood pressure task Care Plan Weekly blood pressure task No Jeana Alejo PharmJohnathan Patient has chronic kidney disease Care Plan Patient has chronic kidney disease No Jeana Alejo, Bo Weekly blood pressure task Care Plan Weekly blood pressure task No Jannette Sutton Weekly blood pressure task Care Plan Weekly blood pressure task No Jannette Sutton Patient has chronic kidney disease Care Plan Patient has chronic kidney disease No Jannette Sutton Patient has chronic kidney disease Care Plan Patient has chronic kidney disease No Jannette Sutton documented as of this encounter Visit Diagnoses Diagnosis Seasonal allergies Allergic rhinitis, cause unspecified documented in this encounter Additional Health Concerns Active Problems Noted Date Diagnosed Date Help patients manage their type 2 diabetes 06/29 Weekly blood pressure task 06/29/2025 Help patients manage their type 2 diabetes 06/29 Patient has chronic kidney disease 06/29/2025 Weekly blood pressure task 06/29/2025 Patient has chronic kidney disease 06/29/2025 Weekly blood pressure task 07/17/2025 Weekly blood pressure task 07/17/2025 Patient has chronic kidney disease 07/17/2025 Patient has chronic kidney disease 07/17/2025 Assessment Noted Time PHQ-9 Depression Total Score: 17 025 11:40 AM EDT documented as of this encounter Care Teams Training Program Manager Relationship Specialty Start Date End Date Brittnee Hanna MD [address] [place] [address] PCP - General Family Medicine 08/17/18 Martina Mancia OD [address] [place] [address] Optometry 07/26/24 Allyson Armando [address] 3rd [place] [address] Cardiology 01/03/25 Donna Sutton Warehouse Operations ManagerSoil Checker 05/06/24 Bety Benson NP [facility] Endocrinology Endocrinology 11/04/24 documented as of this encounter
--- OUTSIDE RECORDS SUMMARY | 2025-07-25 20:29 | XMS_ITS | Encounter Summary ---
Author Organization [employer] Address [address] [facility] 7t [place] [address] Care Team Providers Care Bottle Label Inspector Name Role Phone Brittnee Hanna MD Primary Care Provider +1- [phone] Tan Mancian OD Unavailable Adolfo Armandon Unavailable Reason for Visit * Reason Onset Date Comments pt1 05/05/2025 Encounter Details Date Type Department Care Team ([facility] st Contact Info) Description 05/05/2025 Telephone [facility] MEDICINE [address] [place] [address] Brittnee Hanna MD [address] [place], [place] [phone] pt1 Social History Tobacco Use Types Packs/Day [...] Yes Provider name or facility name: [address] [facility] [address] Escort needed: Y/N: Yes Do you have a wheelchair: Y/N: No If yes- Manual or electric: Visits: 3x a month Patient calling requesting PT1 Home Address verified: Y/N: Yes Provider name or facility name: [address] [facility] [address] Escort needed: Y/N: Yes Do you have a wheelchair: Y/N: No If yes- Manual or electric: Visits: 2-3x a month Patient calling requesting PT1 Home Address verified: Y/N: Yes Provider name or facility name: [address] [place] [address] Escort needed: Y/N: Yes Do you have a wheelchair: Y/N: No If yes- Manual or electric: Visits: 3x a month Patient calling requesting PT1 Home Address verified: Y/N: Yes Provider name or facility name: [address] [place] [address] Escort needed: Y/N: Yes Do you have a wheelchair: Y/N: No If yes- Manual or electric: Visits:2x a month Patient calling requesting PT1 Home Address verified: Y/N: Yes Provider name or facility name: [address] [facility] [address] Escort needed: Y/N: Yes Do you have a wheelchair: Y/N: No If yes- Manual or electric: Visits: 2x a month documented in this encounter Plan of Treatment Upcoming Encounters Date Type Department Care Team (Late st Contact Info) Description 08/02/2025 10:30 AM EST Office Visit [facility] MEDICINE [address] [place] [address] Brittnee Hanna MD [address] [place], [place] [phone] documented as of this encounter Goals Goal [...] as of this encounter Care Teams Bottle Label Inspector Relationship Specialty Start Date End Date Brittnee Hanna MD [address] [place], [place] [phone] PCP - General Family Medicine 08/17/18 Martina Mancia OD [address] [place] [address] [phone] Optometry 07/26/24 Allyson Armando [address] 3rd [place] [address] Cardiology 01/03/25 Donna Sutton Paper SheeterViolin Mechanic 05/06/24 Bety Benson NP [facility] Endocrinology Endocrinology 11/04/24 documented as of this encounter
--- OUTSIDE RECORDS SUMMARY | 2025-07-25 20:29 | XMS_ITS | Encounter Summary ---
Author Organization [employer] Address [address] [address] 7t [place] [address] Care Team Providers Care Head Of Physics Name Role Phone Brittnee Hanna MD Primary Care Provider +1- [phone] Di Hyde PharmD Unavailable Martina Mancia OD Unavailable Prabha, Allyson Unavailable Encounter Details Date Type Department Care Team (Late st Contact Info) Description 05/24/[address] [facility] [address] [place] [address] Brittnee Hanna MD 230 [place], [place] [phone] Social History Tobacco Use Types Packs/Day Years [...] 08/02/2025 10:30 AM EST Office Visit [facility] MEDICINE [address] [place] [address] Brittnee Hanna MD [address] [place] [address] documented as of this encounter Goals Goal [...] as of this encounter Care Teams Head Of Physics Relationship Specialty Start Date End Date Brittnee Hanna MD [address] [place] [address] PCP - General Family Medicine 08/17/18 Di Hyde, PharmD [address] [place] [address] Pharmacist Internal Medicine 01/06/23 08/31/24 Martina Mancia OD [address] [place] [address] Optometry 07/26/[address] 3rd [place] [address] Cardiology 01/03/25 Donna Sutton Wagon Drill OperatorHydrate Thickener Operator 05/06/24 Bety Benson NP [facility] Endocrinology Endocrinology 11/04/24 documented as of this encounter
--- OUTSIDE RECORDS SUMMARY | 2025-07-25 20:29 | XMS_ITS | Encounter Summary ---
Author Organization [employer] Address [address] [facility] 7t [place] [address] Care Team Providers Care Director Cardiac Name Role Phone Brittnee Hanna MD Primary Care Provider [phone] Di Hyde PharmD Unavailable [phone] Martina Mancia OD Unavailable [phone] Prabha, Allyson Unavailable Encounter Details Date Type Department Care Team (Late st Contact Info) Description 09/22/[address] [facility] [address] [place] [address] Brittnee Hanna MD [address] [place] [address] Social History Tobacco Use Types Packs/Day Years [...] Stark MA Thoughts that you would be better off or hurting yourself in some way Not at all 09/22/2022 9:47 AM Katelynn Stark M A Patient Health Questionnaire -9 Score 0 09/22/2022 9:47 AM Katelynn Stark M A documented as of this encounter Plan of Treatment Upcoming Encounters Date Type Department Care Team (Late st Contact Info) Description 08/02/2025 10:30 AM EST Office Visit [facility] [address] [place] [address] Brittnee Hanna MD [address] [place] [address] documented as of this encounter Procedures Procedure [...] Blood Venous blood specimen / Unknown Result [facility] Historical Provider LAB BLOOD ORDERABLES Emelia l Result * Basic Metabolic Panel (06/05/2022) Creatinine 1.0 0.5 - 1.1 mg/dL Blood Venous blood specimen / Unknown Result [facility] Provider LAB BLOOD ORDERABLES Emelia l Result * (ABNORMAL) Lipid Panel, Standard (06/05/2022) Triglycerides 163(A) 40 - 160 mg/dL Cholesterol 209(A) 0 - 200 mg/dL HDL Cholesterol 70 35 - 70 mg/dL LDL Cholesterol 111 mg/dL Blood Venous blood specimen / Unknown Historical Provider MD LAB BLOOD ORDERABLES Emelia l Result * Pap Smear (05/16/2022 12:00 AM EDT) Swab [facility] Provider LAB CYTOLOGY ORDERABLES F inal Result [facility] HISTORICAL LABS * Colonoscopy (08/21/2020) Pathologist [facility] Colonoscopy hyperplastic polyp Dr. Olivarez Historical Provider HEALTH MAINTENANCE Final Result * HIV-1 antibody, EIA (04/25/2019) Pathologist [facility] External HIV-1 Antibody Negative Blood Venous blood specimen / Unknown Result [facility] Provider LAB BLOOD ORDERABLES Emelia l Result * Mammography (06/14/2018) Mammogram normal Anatomical Region Laterality Modality Other [facility] Provider HEALTH MAINTENANCE Final Result * Hepatitis C Antibody with Reflex to HCV, RNA, Quantitative, Real-Time PCR (02/22/2014) Blood Venous blood specimen / Unknown 02/22/2014 Result [facility] Provider LAB BLOOD ORDERABLES Emelia l Result documented in this encounter Visit Diagnoses Not on filedocumented in this encounter Additional Health Concerns Assessment Noted Time PHQ-9 Depression Total Score: 0 09/22/19 23 9:47 AM EST documented as of this encounter Care Teams Director Cardiac Relationship Specialty Start Date End Date Brittnee Hanna MD [address] [place] [address] PCP - General Family Medicine 08/17/18 Di Hyde PharmD [address] [place] [address] Pharmacist Internal Medicine 01/06/23 08/31/24 Martina Mancia OD [address] [place] [address] Optometry 07/26/24 Allyson Armando [address] [place] [address] Cardiology 01/03/25 Donna Sutton Lobby ConciergeMachine Icer 05/06/24 Bety Benson NP [facility] Endocrinology Endocrinology 11/04/24 documented as of this encounter
--- OUTSIDE RECORDS SUMMARY | 2025-07-25 20:29 | XMS_ITS | Encounter Summary ---
Author Organization [employer] Address [address] [facility] 7t [place] [address] Care Team Providers Care Director Index Name Role Phone Brittnee Hanna MD Primary Care Provider [phone] Di Hyde PharmD Unavailable [phone] Martina Mancia OD Unavailable Allyson Armando Unavailable Reason for Visit * Reason Onset Date Comments Appointment Request 07/18/2024 Encounter Details Date Type Department Care Team ([facility] st Contact Info) Description 07/18/2024 Telephone [facility] [address] [place], [place] [phone] Brittnee Hanna MD [address] [place] [address] Appointment Request Social History Tobacco Use Types [...] Description 08/02/2025 10:30 AM EST Office Visit [facility] [address] [place] [phone] Brittnee Hanna MD [address] [place] [address] documented as of this encounter Goals Goal [...] as of this encounter Care Teams Director Index Relationship Specialty Start Date End Date Brittnee Hanna MD [address] [place] [address] PCP - General Family Medicine 08/17/18 Di Hyde, ShabbirD [address] [place] [address] Pharmacist Internal Medicine 01/06/23 08/31/24 Martina Mancia OD [address] [place] [address] Optometry 07/26/[address] [place] [address] Cardiology 01/03/25 Donna Sutton Insurance InstructorTerritory Service Representative 05/06/24 Bety Benson NP [facility] Endocrinology Endocrinology 11/04/24 documented as of this encounter
--- OUTSIDE RECORDS SUMMARY | 2025-07-25 20:29 | XMS_ITS | Encounter Summary ---
Author Organization [email or web address] Address [address] [facility] 7t [place] [address] Care Team Providers Care Inseminator Name Role Phone Brittnee Hanna MD Primary Care Provider [phone] Tan Mancian OD Unavailable [phone] Adolfo Armandon Unavailable Reason for Visit * Reason Comments Med Refill Encounter Details Date Type Department Care Team ([facility] st Contact Info) Description 10/03/2024 Refill [facility] [address] [place] [address] Brtitnee Hanna MD [address] [place] [address] Mild intermittent asthma without complication Social History [...] Description 08/02/2025 10:30 AM EST Office Visit [facility] [address] [place] [address] Brittnee Hanna MD [address] [place] [address] documented as of this encounter Goals Goal [...] documented as of this encounter Care Teams Inseminator Relationship Specialty Start Date End Date Brittnee Hanna MD [address] [place] [address] PCP - General Family Medicine 08/17/18 Martina Mancia OD [address] [place] [address] Optometry 07/26/24 Allyson Armando [address] [place] [address] Drive 3rd [place] [address] Cardiology 01/03/25 Donna Sutton [employer] Head Inspector And AdjusterWestern Philosophy Professor 05/06/24 Bety Benson CLAY PIGEON SETTER [facility] Endocrinology Endocrinology 11/04/24 documented as of this encounter
--- OUTSIDE RECORDS SUMMARY | 2025-07-25 20:29 | XMS_ITS | Clinical Summary ---
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 Continuous Blood Gluc Divorce Mediator (FreeStyle Irc 2 [place]) device Use as directed 1 each 023 Active Continuous Glucose Sensor (FreeStyle Ric 2 Sensor) miscIndications :Type 2 diabetes mellitus with hyperglycemia, with long-term current use of insulin ([facility]) USE DIRECTED TO TEST BLOOD SUGAR CHANGE EVERY 14 DAYS 2 each 024 Active Blood Glucose Monitoring Suppl (FreeStyle [place]n Lite) w/Device kitIndications: Type 2 diabetes mellitus with hyperglycemia, with long-term current use of insulin ([facility]) TEST BLOOD SUGAR FIVE TIMES DAILY DIRECTED 1 kit 024 Active OLANZapine (ZyPREXA) 7.5 MG tabletIndicatio ns:Recurrent major depressive disorder, in remission (CMS/HCC) TAKE 1 TABLET BY MOUTH AT BEDTIME 30 tablet 024 Active glucose 4 g chewable tabletIndicatio ns:Type 2 diabetes mellitus with hyperglycemia, with long-term current use of insulin ([facility]) Chew 4 tablets (16 g) if needed for low blood sugar. 50 tablet 024 Active glucagon (Baqsimi Two Pack) 3 MG/DOSE nasal powderIndicatio ns:Type 2 diabetes mellitus with hyperglycemia, with long-term current use of insulin ([facility]) For low blood sugar emergencies, insert 3mg into one nostril, may repeat the dose if no response after 15 minutes. 1 each 024 Active glucose blood (FreeStyle Precision Freeman Test) test stripIndication s:Type 2 diabetes mellitus with hyperglycemia, with long-term current use of insulin ([facility]) TEST BLOOD SUGAR UP TO FOUR TIMES [...] hyperglycemia, with long-term current use of insulin ([facility]) Use as directed to check for ketones [...] misc Use as instructed 100 each 11 07/11/20 25 4:06 PM EST 025 Active Dulaglutide 0.75 MG/0.5ML solution auto-injector Inject under the skin. Active insulin lispro (HumaLOG) 100 UNIT/ML injectionIndica tions:Type 2 diabetes mellitus with other circulatory complication, with long-term current use of insulin ([facility]) Administer 18 units daily before each meal 15 mL Active lisinopril 20 MG tabletIndicatio ns:Essential hypertension TAKE 1 TABLET BY MOUTH EVERY MORNING 90 tablet 3 07/11/20 4:06 PM EST 025 Active atorvastatin (Lipitor) 80 MG tabletIndicatio ns:Type 2 diabetes mellitus with hyperglycemia, with long-term current use of insulin ([facility]),Dyslipide china TAKE 1 TABLET BY MOUTH AT BEDTIME 90 tablet 3 07/11/20 4:06 PM EST 025 Active gabapentin (Neurontin) 100 MG capsuleIndicati ons:Neuropathy TAKE 1 CAPSULE BY MOUTH TWICE DAILY 60 capsule Active isosorbide mononitrate ER (Imdur) 30 MG 24 hr tabletIndicatio ns:Essential hypertension TAKE 1 TABLET BY MOUTH EVERY MORNING 90 tablet 3 07/11/20 4:06 PM EST Active insulin glargine (Lantus SoloStar) 100 UNIT/ML penIndications: Type 2 diabetes mellitus with other circulatory complication, with long-term current use of insulin ([facility]) INJECT 42 UNITS SUBCUTANEOUSLY EVERY DAY AT BEDTIME, IF FASTING BLOOD SUGAR IS > 180 INCREASE TO 46 UNITS AFTER 3 DAYS 15 mL Active amLODIPine (Norvasc) 5 MG tabletIndicatio ns:Essential hypertension TAKE 1 TABLET BY MOUTH EVERY MORNING 90 tablet 3 Active TRUEplus Lancets 33G miscIndications :Type 2 diabetes mellitus with hyperglycemia, with long-term current use of insulin ([facility]) TEST BLOOD SUGAR FIVE TIMES DAILY 200 each Active aspirin (Aspirin Adult Low Strength) 81 MG EC tabletIndicatio ns:Coronary artery stenosis Take 1 tablet (81 mg) by mouth in the morning. 90 tablet 3 07/11/20 4:06 PM EST 025 Active chlorthalidone (Hygroton) 25 MG tabletIndicatio ns:Essential hypertension TAKE ONE HALF TABLET BY MOUTH ONCE DAILY 45 tablet 1 025 Active metoprolol succinate XL (Toprol-XL) 50 MG 24 hr tabletIndicatio ns:Essential hypertension Take 1 tablet (50 mg) by mouth in the morning. Do not crush or chew. 90 tablet 3 07/11/20 25 4:06 PM EST 025 Active tiotropium (Spiriva HandiHaler) 18 MCG inhalation capsuleIndicati ons:Asthma-COPD overlap syndrome (CMS/HCC) ([facility]) Place 1 capsule (18 mcg) into inhaler and inhale in the morning. 30 capsule 025 Active Fluticasone-Larry meterol (Advair Diskus) 250-50 MCG/ACT aerosol powderIndicatio ns:Asthma-COPD overlap syndrome (CMS/HCC) ([facility]) Inhale 250 mg 2 times daily. 60 each 5 07/11/20 25 4:06 PM EST 025 Active albuterol 1.25 MG/3ML nebulizer solution Take 6 mL (2.5 mg) by nebulization every 4 (four) hours if needed for wheezing. 75 mL 11 025 2025 Active Alcohol Swabs (Alcohol Prep) 70 % padsIndications :Type 2 diabetes mellitus with hyperglycemia, with long-term current use of insulin ([facility]) USE BEFORE TEST BLOOD SUGAR AND INSULIN 100 each 11 025 Active albuterol (Ventolin HFA) 108 (90 Base) MCG/ACT inhalerIndicati ons:Asthma-COPD overlap syndrome (CMS/HCC) ([facility]) INHALE 2 PUFFS BY MOUTH EVERY 4 HOURS NEEDED FOR WHEEZING OR SHORTNESS OF BREATH 18 g 11 025 Active loratadine (Claritin) 10 MG tabletIndicatio ns:Allergic rhinitis, unspecified seasonality, unspecified trigger TAKE 1 TABLET BY MOUTH EVERY MORNING FOR ALLERGIES 90 tablet 3 07/11/20 25 4:06 PM EST 025 Active fluticasone (Flonase) 50 MCG/ACT nasal sprayIndication s:Seasonal allergies INSTILL 1 SPRAY IN EACH NOSTRIL ONCE DAILY NEEDED FOR ALLERGIES 16 g 2 025 Active loratadine (Claritin) 10 MG tabletIndicatio ns:Allergic rhinitis, unspecified seasonality, unspecified trigger TAKE 1 TABLET BY MOUTH EVERY MORNING FOR ALLERGIES 90 tablet 3 024 2024 Discontinued(R eorder (will not trigger notification to Pharmacy)) fluticasone (Flonase) 50 MCG/ACT nasal sprayIndication s:Seasonal allergies 1 spray each nostril daily prn allergies Shake gently. Before first use, prime pump. After use, clean tip and replace cap. 16 g 2 025 2024 Discontinued Active Problems Patient Care Coordination No te Formatting of this note migh t be different from the original. Enrolled in [facility] DM clinic with Shabbir McmillanD, [facility] Problem Noted Date Diagnosed Date Recurrent major depressive disorder, in partial remission 06/27/2025 Vertigo 05/19/2025 Assessment & Plan (05/19/2025 6:52 [...] Endocrinology placed 09/01/24 -note from GI Swathi José Miguel 02/08/25 She will be due for colonoscopy [...] for OP and psychiatry services in the [place] area. clinician provided contact information for [facility] and [facility] in [place]. Dizziness 12/30/2023 Overview (12/31/2023): Pt continues to [...] as pharmacomtherapy, [facility] smoking [facility], and [facility] pharmacy smoking cessation clinic Discussed USPSTF [...] as pharmacomtherapy, [facility] smoking [facility] group, and [facility] pharmacy smoking cessation clinic Discussed RUSTSTF recommends annual lung cancer screening with low [...] as pharmacomtherapy, [facility] smoking cessation group, and [facility] pharmacy smoking cessation clinic Discussed USPSTF [...] due after 07/27/25 -eye care facilitated by [facility] on 05/20/2023 -dental home is [facility], [facility] -health care proxy filed 04/07/24 Assessment & Plan (07/27/2024 2:57 PM EST): -next physical exam due after 07/27/25 -eye care facilitated by [facility] on 05/20/2023 -dental home is [facility], [facility] -health care proxy filed 04/07/24 Assessment & Plan (04/07/2024 10:24 AM EDT): -next physical exam due after 06/10/2024 -eye care facilitated by [facility] on 05/20/2023 -dental home is [facility], [facility] -health care proxy filed 04/07/24 Assessment & Plan (06/10/2023 2:19 PM EDT): -next physical exam due after 06/10/2024 -eye care facilitated by [facility] on 05/20/2023 -dental home is [...] strict ED precautions. -Referral to re-establish with [facility] placed Assessment & Plan (09/22/2022 [...] -poor EF and DM) Asthma-COPD overlap syndrome ([facility]) 4 Overview (04/07/2024): -On Advair and Spiriva [...] (moderate) (CM S/HCC) 09/13/2012 Chronic sinusitis 09/13/2012 Generalized headache 04/21/2012 Type 2 diabetes mellitus wit h stage 3a chronic kidney disease, with long-term current use of insulin 03/25/2012 Overview (06/20/2025): Diabetes is not controlled. Rereferred to endo and restablished 10/2024 at [facility] . Note from 02/07/25 reviewed. On Freestyle Ric 3 Diabetes is controlled. - Lab Results Component Value Date HGBA1C 9.4 (H) 04/26/2025 HGBA1C 9.9 (A) 04/26/2025 HGBA1C 10.8 (A) 01/10/2025 - Lab Results Component Value Date CREATININE 0.96 04/26/2025 EGFR 59 04/26/2025 MICROALBCREU 8.6 04/26/2025 MICROALBCREU 10.5 09/19/2024 LDLCHOLCAL 140 (H) 04/26/2025 -On Asprin 81 daily for secondary prevention [...] Rereferred to endo and restablished 10/2024 at [facility] . Note from 02/07/25 reviewed. [...] glucose monitor. Needs sensors. 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 Lab Results Component [...] episode of recurren t major depressive disorder ([facility]) 12/30/2023 04/07/2024 History of diabetic ketoacidosis 02/18/2023 [...] admitted on 03/17/2022 for DKA (diabetic ketoacidosis) ([facility]) [E11.10];Acute cystitis without hematuria [N30.00] Results: Results [...] admitted on 03/17/2022 for DKA (diabetic ketoacidosis) ([facility]) [E11.10];Acute cystitis without hematuria [N30.00] Results: Results [...] 09/13/2012 04/07/2024 Noncompliance with treatment 09/13/2012 04/07/2024 Depressive disorder 04/21/2012 06/27/20 25 Assessment & Plan (04/14/2024 10:23 AM EDT): [...] for OP and psychiatry services in the [place] area. clinician provided contact information for [facility] and [facility] in [place]. Assessment & Plan (01/08/2023 10:29 AM EDT): [...] services. PLAN: 1. Follow up with [facility]: Not recommended for follow-up 2. Patient goal is to engage in behavioral health services. 3. Behavioral Recommendations a. Practice using a different coping skill on a daily basis b. Once services are established, attend therapy and medication management appointments c. Patient will reach out to a [facility] during next PCP appointment if needed Assessment & Plan (07/22/2022 2:55 PM EST): Most likely exacerbated by lack of meds >1m. Called pharmacy and verify med dose, sent Rx for Olanzapine 7.5mg I will email [facility] to make an appt with Dr Quinn and assign therapist if needed. Patient feels safe at home, she doesn't have a suidial paln and is able to contract for safety. She has crisis number and knows to reach out to us PRN Counseled to [facility] or ETOH Hypercholesterolemia 04/21/2012 023 Hypertension 03/25/2012 09/22/2022 Overview (09/19/2022): Last Assessment & Plan: - running high - need to clarify home medication list - prn IV hydralazine for now Encounters Date Type Department Care Team Description 07/18/2025 Refill [facility] [address] [place] [phone] Brittnee Hanna MD Seasonal allergies 07/17/[address] [address] Brittnee Hanna MD Prior Authorization (PA: Icosapent Ethyl) 06/29/2025 Refill [facility] [address] [place] [phone] Brittnee Hanna MD Allergic rhinitis, unspecified seasonality, unspecified trigger 06/05/2025 Patient Outreach [address] [address] Naeem Ramires Care Coordination ([facility] outreach for SDOH PT-1 and food needs-referral completed /) 06/05/[address] [address] Brittnee Hanna MD PT1 05/19/2025 11:15 AM EDT Office Visit [address] [phone] Kristina Olea NP Type 2 diabetes mellitus with hyperglycemia, with long-term current use of insulin (HCC) (Primary Dx); Vertigo 05/19/2025 Travel 05/18/[address] [phone] Brittnee Hanna MD 05/18/[address] [address] Brittnee Hanna MD CHARTPREP 05/17/[address] [phone] Brittnee Hanna MD Nurse Triage 05/09/2025 Refill [facility] [address] [place] [phone] Brittnee Hanna MD Type 2 diabetes mellitus with hyperglycemia, with long-term current use of insulin ([facility]); Asthma-COPD overlap syndrome (CMS/HCC) 05/05/2025 Patient Outreach [address] [phone] Brittnee Hanna MD Care Coordination ([facility] outreach for SDOH PT-1 and food needs-referral completed /) 05/05/[address] [address] Brittnee Hanna MD pt1 05/02/[address] [address] Brittnee Hanna MD Durable Medical Equipment 04/26/2025 11:30 AM EDT Office Visit [address] [phone] Brittnee Hanna MD Type 2 diabetes mellitus with hyperglycemia, with long-term current use of insulin ([facility]) (Primary Dx); Unintentional weight loss; Anemia, unspecified type; Asthma-COPD overlap syndrome ([facility]); Chronic obstructive pulmonary disease, unspecified COPD type ([facility]); Mild intermittent asthma without complication; Seasonal allergies 04/26/[address] [address] Brittnee Hanna MD 04/26/2025 Travel 04/25/[address] [address] Brittnee Hanna MD chart prep from Last 3 Months Immunizations Immunization Administration [...] 05/19/2025 11:16 AM EDT Plan of Treatment Upcoming Encounters Date Type Department Care Team (Late st Contact Info) Description 08/02/2025 10:30 AM EST Office Visit [facility] [address] [place] [address] Brittnee Hanna MD [address] [place] [address] Health Maintenance Due Date Last Done Comments CT Colonography 1963 FIT DNA/Cologuard 1963 FIT 1963 FOBT 1963 Sigmoidoscopy 1963 RSV Patients and Patients Aged 60 years or older (1 - Risk 50-74 years 1-dose series) 2013 Zoster Vaccines (1 of 2) 2013 COVID-19 Vaccine (4 - season) 2025 09/04/2022, 05/16/2022, 05/08/2021 Influenza Vaccine (#1) 2025 , 06/10/2023, 05/16/2022, Additional history exists Mammogram 07/24/2025 07/24/2023, 05/18, 06/14/2018 Diabetes: Hemoglobin A1C 07/26/2025 025, 04/26/2025, 01/10/2025, Additional history exists Alcohol/Substance Use Screening 07/27/2025 07/27/2024 Diabetes: Foot Exam 07/27/2025 07/27/2024, 07/27/2024, 07/27/2024, Additional history exists Depression Monitoring 10/24/2025 04/26/2025, 025 Disability Screening 04/19/2026 04/19/2025 Diabetes: Urine Protein Screening 04/26/2026 04/26/2025, 09/19/2024, 09/19/2024, Additional history exists Lipid Panel 04/26/2026 04/26/2025, 0210/2024, 09/19/2024, Additional history exists SDOH Screening 04/26/2026 [...] 12:19 PM EDT) No Di Meyers PharmD Help patients manage their type 2 diabetes Care Plan Help patients manage their type 2 diabetes No Jeana Alejo PharmD Weekly blood pressure task Care Plan Weekly blood pressure task No Jeana Alejo PharmD Help patients manage their type 2 diabetes Care Plan Help patients manage their type 2 diabetes No Jeana Alejo PharmD Patient has chronic kidney disease Care Plan Patient has chronic kidney disease No Jeana Alejo PharmD Weekly blood pressure task Care Plan Weekly blood pressure task No Jeana Alejo PharmD Patient has chronic kidney disease Care Plan Patient has chronic kidney disease No Jeana Alejo PharmD Weekly blood pressure task Care Plan Weekly blood pressure task No Jannette Sutton Weekly blood pressure task Care Plan Weekly blood pressure task No Jannette Sutton Patient has chronic kidney disease Care Plan Patient has chronic kidney disease No Jannette Sutton Patient has chronic kidney disease Care Plan Patient has chronic kidney disease No Jannette Sutton Procedures Procedure Name Priority Date/Time Associated Diagnosis [...] of2 resultswithin the time period is included. Glucose Blood, POC 276(A) 60 - 200 mg/dL Blood Capillary blood specimen / Unknown 05/19/2025 11:17 AM EDT us Kristina Olea NP POINT OF CARE TEST ENTER/EDIT OR DERABLES Final Result * Vitamin B12 (Cobalamin) and Folate Panel, Serum (04/26/2025 12:19 PM EDT) Vitamin B12 336 200 - 900 pg/mL [facility] Comment:NORMAL 200-900 PG/ML INDETERMINATE 160-199 PG/ML DEFICIENT < 160 PG/ML Folate 6.9 > or = 4.0 ng/mL [facility] Comment:Reference Values:> o r = [...] BLOOD ORDERABLES Final Result Performing Organization Address [facility]/ZIP Co de Phone Number [facility] [address] [place] [phone] * TSH with Reflex to Free T4 (04/26/2025 12:19 PM EDT) TSH reflex Free T4 0.97 0.32 - 4.0 uIU/mL [facility] Blood Venous blood specimen / Unknown 04/26/2025 12:19 PM EDT 04/26/2025 1:57 PM EDT Brittnee Hanna MD LAB BLOOD ORDERABLES Final Result Performing Organization Address [facility] Co de Phone Number [facility] [address] [place] [phone] * Albumin, Random Urine W/Creatinine (04/26/2025 12:19 PM EDT) Creatinine, Urine 103.45 mg/dL [facility] Microalbumin Urine 9.0 mg/L [facility] Microalbum Creatinine Ratio Ur 8.6 <30 ug/mg cr [facility] Comment:Albumin/Creatinine R atio Reference Ranges: Normal: < 30 ug/mg creatinine Microalbuminuria: 30 - 300 ug/mg creatinineClinical Albuminuria: > 300 ug/mg creatinine Urine 04/26/2025 12:1 9 PM EDT 04/26/2025 1:26 PM EDT Brittnee Hanna MD LAB URINE ORDERABLES Final Result Performing Organization Address [facility] Co de Phone Number [facility] [address] [place] [phone] * (ABNORMAL) CBC auto differential (04/26/2025 12:19 PM EDT) White Blood Count 7.8 4.8 - 10.8 X10*3/uL [facility] Red Blood Count 4.53 4.20 - 5.50 X10*6/uL [facility] Hemoglobin 13.2 12.0 - 16.0 g/dl [facility] Hematocrit 40.3 37.0 - 47.0 % [facility] Mean Corpuscular Volume 89.0 80.0 - 98.0 fL [facility] Mean Corpuscular Hemoglobin 29.1 27.0 - 33.0 pg [facility] Mean Corpuscular HGB Conc 32.8 31.0 - 35.0 g/dl [facility] Red Cell Distribution Width 13.1 11.0 - 16.0 % [facility] Platelet Count 293 160 - 400 X10*3/uL [facility] Mean Platelet Volume 11.2 9.4 - 12.3 fL [facility] Neutrophils Percent Auto 60.8 45 - 73 % [facility] Imm Gran Pct Auto 0.4 0.0 - 0.4 % [facility] Lymphocytes Percent Auto 22.6 20 - 40 % [facility] Monocytes Percent Auto 6.4 2 - 11 % [facility] Eosinophils Percent Auto 9.4(H) 0 - 4 % [facility] Basophils Percent Auto 0.4 0 - 2 % [facility] NRBC Pct Auto 0.0 0.0 - 0.2 /100WBC [facility] Neutrophils Absolute Auto 4.7 2.0 - 8.3 x10*3/uL [facility] Imm Gran Abs Auto 0.03 0.00 - 0.03 X10*3/uL [facility] Lymphocytes Absolute Auto 1.8 1.2 - 4.9 X10*3/uL [facility] Monocytes Absolute Auto 0.5 0.1 - 1.2 X10*3/uL [facility] Eosinophils Absolute Auto 0.7(H) 0.0 - 0.4 X10*3/uL [facility] Basophils Absolute Auto 0.0 0.0 - 0.2 X10*3/uL [facility] NRBC Abs Auto 0.000 0.0 - 0.012 X10*3/uL [facility] Blood Venous blood specimen / Unknown 04/26/2025 12:19 PM EDT 04/26/2025 1:32 PM EDT Brittnee Hanna MD LAB BLOOD ORDERABLES Final Result Performing Organization Address [facility]/ZIP Co de Phone Number [facility] [address] [place] [phone] * Iron And Total Iron Binding Capacity (04/26/2025 12:19 PM EDT) Iron 69 30 - 160 mcg/dL [facility] Total Iron Binding Capacity 258 228 - 428 mcg/dL [facility] Percent Iron Saturation 27 15 - 50 % [facility] Unsaturated Iron Binding 189 ug/dL [facility] Blood Venous blood specimen / Unknown 04/26/2025 12:19 PM EDT 04/26/2025 1:57 PM EDT Brittnee Hanna MD LAB BLOOD ORDERABLES Final Result Performing Organization Address [facility] Co de Phone Number [facility] [address] [place] [phone] * (ABNORMAL) Hemoglobin A1c (04/26/2025 12:19 PM EDT) Hemoglobin A1c 9.4(H) <6.0 % [facility] Comment:Hemoglobin A1C Refer ence Range Adults: 4.8 - 6.0 % Non diabetic: < 6.0 % Goal: < 7.0 %Additional Action Suggested: > 8.0 %Note: Hemoglobin A1c results are invalid for patients with abnormal amounts of HbF. Blood transfusions may impact the HbA1c concentration in the patient sample. Estimated Average Glucose 223 mg/dL [facility] Comment:eAG = Estimated ave rage glucose which is %A1C expressed asaverage glucose, using the formula of the [id number] Glucose study (ADAG), Diabetes Care, Vol.31,#8,2007 Blood Venous blood specimen / Unknown 04/26/2025 12:19 PM EDT 04/26/2025 1:57 PM EDT Brittnee Hanna MD LAB BLOOD ORDERABLES Final Result Performing Organization Address [facility] Co de Phone Number [facility] [address] [place] [phone] * Ferritin (04/26/2025 12:19 PM EDT) Ferritin 105 10 - 250 ng/mL [facility] Blood Venous blood specimen / Unknown 04/26/2025 12:19 PM EDT 04/26/2025 1:57 PM EDT Brittnee Hanna MD LAB BLOOD ORDERABLES Final Result Performing Organization Address [facility] de Phone Number [facility] [address] [place] [phone] * (ABNORMAL) Hepatic Function Panel (04/26/2025 12:19 PM EDT) Bilirubin, Total 0.3 0.0 - 1.0 mg/dL [facility] Bilirubin, Direct 0.1 0.0 - 0.5 mg/dL [facility] Aspartate Amino Transferase 32(H) 5 - 31 U/L [facility] Alanine Aminotransferase 41(H) 0 - 31 U/L [facility] Total Protein 7.6 6.5 - 8.0 g/dL [facility] Albumin Level 4.4 3.5 - 5.0 g/dL [facility] Alkaline Phosphatase 114 39 - 117 U/L [facility] Blood Venous blood specimen / Unknown 04/26/2025 12:19 PM EDT 04/26/2025 1:57 PM EDT Brittnee Hanna MD LAB BLOOD ORDERABLES Final Result Performing Organization Address [facility] Co de Phone Number [facility] [address] [place] [address] [place] [phone] * (ABNORMAL) Lipid Panel, Standard (04/26/2025 12:19 PM EDT) Triglycerides 220(H) <150 mg/dL [facility] Comment:Desirable Triglyceri de: less than 150 mg/dLBorderline High Triglyceride 150-199 mg/dLHigh Triglyceride: 200-499 mg/dLVery High Triglyceride: greater than or equal to 5OO mg/dL Cholesterol 232(H) <200 mg/dL [facility] Comment:Desirable Cholestero l: less than 200 mg/dLBorderline High Cholesterol: 200-239 mg/dLHigh Cholesterol: greater than 239 mg/dL LDL Cholesterol Calculated 140(H) <100 mg/dL [facility] Comment:Desirable LDL: less than 100 mg/dLNear Optimal/Above Optimal LDL: 110- 129 mg/dLBorderline High LDL: 130-159 mg/dLHigh LDL: 160-189 mg/dLVery High LDL: greater than or equal to 190 mg/dL HDL Cholesterol 48 >40 mg/dL [facility] Comment:Desirable HDL: great er than 40 mg/dL Note: This HDL assay may give artificially low results in patients with liver disease. Blood Venous blood specimen / Unknown 04/26/2025 12:19 PM EDT 04/26/2025 1:57 PM EDT Brittnee Hanna MD LAB BLOOD ORDERABLES Final Result [facility] [address] [place] [phone] * (ABNORMAL) Basic Metabolic Panel (04/26/2025 12:19 PM EDT) Sodium 141 135 - 145 mmol/L [facility] Potassium 4.3 3.3 - 5.1 mmol/L [facility] Chloride 107 96 - 108 mmol/L [facility] Carbon Dioxide 28 22 - 29 mmol/L [facility] Anion Gap 10(L) 12 - 20 [facility] Urea Nitrogen (BUN) 14 9 - 16 mg/dL [facility] Creatinine, Serum 0.96 0.5 - 1.4 mg/dL [facility] Estimated Glomerular Filt Rate 59 [facility] Comment:Chronic Kidney Disea se: Estimated GFR < 60 mL/min/[id number] Kidney Disease: Estimated GFR < 15 mL/min/1.73m2 Glucose 120(H) 60 - 115 mg/dL [facility] Calcium 9.9 8.4 - 10.2 mg/dL [facility] Blood Venous blood specimen / Unknown 04/26/2025 12:19 PM EDT 04/26/2025 1:57 PM EDT Brittnee Hanna MD LAB BLOOD ORDERABLES Final Result [facility] [address] [place] [address] [phone] * (ABNORMAL) POCT Hgb A1c (04/26/2025 11:43 AM EDT) Hemoglobin A1C 9.9(A) 4.0 - 5.7 % QC Media Lot # [id number] Lot# Expiration Date 4619, Blood 04/26/2025 11:4 3 AM EDT Brittnee Hanna MD POINT OF CARE TEST ENTER/E DIT ORDERABLES Final Result * BI Mammogram Screening Tomosynthesis Bilateral (07/24/2023 3:39 PM EST) Anatomical Region Laterality Modality Breast Bilateral Mammography 07/24/2023 3:39 PM EST Narrative 08/12/2023 3:43 AM EST [facility] [address] [place] [address] Mammography Report Signed Patient: Cynthia Perry MR#: [id number] : 1965 Acct:[id number] Age/Sex: 57 / F ADM Date: 07/24/23 Loc: HO.MAMMO Attending Dr: Brittnee Hanna MD Ordering Physician: Brittnee Hanna MD Results: 1N egative Date of Service: 07/24/23 Follow Up: 1 Year From Orig inal Mammogram Procedure(s): MM tomosynthesis screening BI Accession Number(s): [id number] cc: Brittnee Hanna MD EXAMINATION: MM SCREENING [...] in OV> 08/12/23 0340 DD/ 1539 TD/TT: Lieutenant Shift Supervisor: Procedure Note Donotuseinterpreter, Image - 08/12/2023 [facility] [address] [place] [address] [place] [address] Mammography Report Signed Patient: Cynthai PerryMR#: [id number] : 1965Acct:[id number] Age/Sex: 57 / FADM Date: 07/24/23 Loc: ESTRELLITA Attending Dr: Brittnee Hanna MD Ordering Physician: Brittnee Hanna MDResults: 1N egative Date of Service: 07/24/23Follow Up: 1 Year From Orig inal Mammogram Procedure(s): MM tomosynthesis screening BI Accession Number(s): [id number] cc: Brittnee Hanna MD EXAMINATION: MM SCREENING [...] in OV> 08/12/23 0340 DD/ 1539 TD/TT: Lieutenant Shift Supervisor: Brittnee Hanna MD [facility] BI PROCEDURES Edited R esult - Final [...] test SurePath(TM) specimens have been determined by [employer]. The modifications have not been cleared or approved by the FDA. This assay has been validated pursuant to the CLIA regulations and is used for clinical purposes. For additional information, please refer to https://education.Patients Know Best.griddig/faq/ALL051 (This link is being provided for information/ [...] along with historic and current clinical information. Comment: This Pap test has been evaluated with computer assisted technology. [facility] Real Estate Transaction Coordinator: SEE COMMENT [facility] Comment: RXB, CT(ASCP) CT screening location: [address] [address] HPV nRNA E6/E7 Not Detected Not Detected [facility] Comment: Methodology: Resource Program Teacher-Mediated Amplification This assay detects E6/E7 viral messenger RNA (mRNA) from 14 high-risk HPV types (16,18,31,33,35,39,45,51,52,56,58,59,66,68). Cervical sources are required for HPV testing. If a vaginal source from a patient who has had a total hysterectomy with removal of cervix was submitted, please contact the testing laboratory for alternative testing options. For additional information, please refer to http://[employer]/faq/EBS131t9 (This link if provided for information/ educational [...] of this assay have been determined by [employer]. The modifications have not been cleared or approved by the FDA. This assay has been validated pursuant to the CLIA regulations and is used for clinical purposes. For additional information, please refer to http://[employer]/ faq/Trichomonastma (This link is being provided for information/ educational purposes only.) 05/16/2022 9:44 AM EDT Result [facility] Brittnee Hanna MD LAB PATHOLOGY ORDERABLES F inal Result [facility] * Pap Smear (05/16/2022 12:00 AM EDT) Swab Result [facility] Historical Provider LAB CYTOLOGY ORDERABLES F inal Result [facility]ORICAL [facility] * Hm Colonoscopy (08/21/2020) Colonoscopy hyperplastic polyp Dr. Olivarez Result [facility] Provider HEALTH MAINTENANCE Final Result * HIV-1 antibody, EIA (04/25/2019) External HIV-1 Antibody Negative Blood Venous blood specimen / Unknown Result [facility] Provider LAB BLOOD ORDERABLES Emelia l Result * Hepatitis C Antibody with Reflex to HCV, RNA, Quantitative, Real-Time PCR (02/22/2014) Blood Venous blood specimen / Unknown 02/22/2014 Result [facility] Provider LAB BLOOD ORDERABLES Emelia l Result from Last 3 Months or Most Recently Relevant to Health Maintenance Additional Health Concerns Active Problems Noted Date [...] 07/17/2025 Patient has chronic kidney disease 07/17/2025 Insurance [facility] C3 Advance Directives Documents on File Type Date Recorded Patient Physician Relations Representative Expl anation Advance Directives and Living Will 04/07/2024 Health Care Proxy 04/07/24 Care Teams 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
== END 2025-07-25 15:43 | disposition home or self-care (01) ==
LOC: HO.ENCR 14:33
PROVIDERS: PCP Physician Assistant Medical; Visit Provider Physician Assistant Medical
DX: Z13.9 Encounter for screening, unspecified (principal); E11.42 Type 2 diabetes mellitus with diabetic polyneuropathy; Z79.4 Long term (current) use of insulin; E78.00 Pure hypercholesterolemia, unspecified

== ENCOUNTER → 2025-07-25 14:33 | Outpatient (BNVA) | payer MEDICAID, SELFPAY | PROVIDERS: PCP Physician Assistant Medical; Visit Provider Physician Assistant Medical | DX: E11.42 Type 2 diabetes mellitus with diabetic polyneuropathy (principal); E78.00 Pure hypercholesterolemia, unspecified; Z79.4 Long term (current) use of insulin; Z79.899 Other long term (current) drug therapy | CPT/HCPCS: 82947; 83036; 99212 ==